=== PATIENT | female | born 1980 | race Caucasian/White ===

== ENCOUNTER 2017-07-27 14:32 | Emergency (ER) | payer MEDICAID, SELFPAY ==
[2017-07-27 14:33] VITALS: BP 119/80; PULSE 97; RESP 14; TEMP 36.5; O2SAT 99; BMI 39.9
--- NOTE | 2017-07-27 14:57 | ED.VISSUMM ---
- ER Visit Summary Date of Service: 07/27/17 Chief Complaint: Migraine History of Present Illness: The patient is a 36 F who presents with a four-day history of migraine headache. She states it is mostly the back of her head and on the right side. She is a history of migraines and this is consistent with her prior pattern. Patient states she has had nausea and dry heaves. She initially had double vision in her right eye which she has had with her prior migraines as well. Patient states normally Midrin and Fioricet will help her headaches but they are not alleviating the pain this round. She is currently on Augmentin for a sinus infection. She has had no fevers. Past history is significant for occipital neuralgia in addition to migraines, diabetes, hypertension, high cholesterol, and reflux disease. Physical Examination: Vital signs are unremarkable. Patient sitting well at room. She is in no acute distress. Head and neck examination is grossly unremarkable. Heart is regular rate and rhythm. On lung sounds are clear. Abdomen soft nontender. Neuro exam reveals no focal deficits. Test Results: [] Emergency Department Course and Treatment: Patient has previously done well with Toradol, Benadryl, and Phenergan. She is given this combination again today. On repeat evaluation she is resting comfortably. She does report significant improvement in her headache. She will be discharged home with family. Treatment Plan: [] Disposition: Discharge Impression: Migraine, improved This note was generated with [employer] dictation software. It may contain incorrect words, spelling, and punctuation that were not noted in review of the chart prior to signing ED Disposition - Plan for ED Patient: Chief Complaint: Headache Referrals: Shirlene George MD [Primary Care Provider] -
[2017-07-27] MEDS: 0.9% Normal Saline 1,000 ML 999 ML IV (15:03)
[2017-07-27] MEDS: DiphenhydrAMINE 50 MG/ML Syringe 25 MG IV (15:04)
[2017-07-27] MEDS: proMETHazine 25 MG/ML Syringe 12.5 MG IV (15:06)
[2017-07-27] MEDS: Ketorolac 30 MG/ML Syringe IV (15:08)
--- NOTE | 2017-07-27 16:29 | ED.DEP ---
ED Disposition - Plan for ED Patient: Disposition: Home or Assisted Living Chief Complaint: Headache Instructions: ED Headache Migraine Referrals: Shirlene George MD [Primary Care Provider] - 3-5 Days if not improving
[2017-07-27 16:47] VITALS: BP 112/71; PULSE 86; RESP 16; O2SAT 99
== END 2017-07-27 16:51 | disposition home or self-care (01) ==
PROVIDERS: Emergency Provider Emergency Medicine; Family Provider Internal Medicine; PCP Internal Medicine
DX: G43.909 Migraine, unspecified, not intractable, without status migrainosus (principal); E11.9 Type 2 diabetes mellitus without complications; I10 Essential (primary) hypertension; E78.00 Pure hypercholesterolemia, unspecified; K21.9 Gastro-esophageal reflux disease without esophagitis; M54.81 Occipital neuralgia; Z79.84 Long term (current) use of oral hypoglycemic drugs; Z79.899 Other long term (current) drug therapy; Z87.891 Personal history of nicotine dependence
CPT/HCPCS: 96361; 96374; 96375; 99284; J7030; A4216

== ENCOUNTER → 2017-10-08 16:43 | Outpatient (CLI) | payer MEDICAID, SELFPAY | PROVIDERS: Visit Provider Otolaryngology Otolaryngology/Facial Plastic Surgery | DX: J32.9 Chronic sinusitis, unspecified (principal) | CPT/HCPCS: 87070; 87077; 87205 ==

== ENCOUNTER 2017-11-03 19:34 | Emergency (ER) | payer MEDICAID, SELFPAY ==
[2017-11-03 19:35] VITALS: BP 148/90; PULSE 90; RESP 15; TEMP 36.9; O2SAT 94; BMI 39.2
--- NOTE | 2017-11-03 21:38 | ED.RN ---
6 IV ATTEMPTS, NO SUCCESS. DR. PENN INFORMED OF SAME.
[2017-11-03] MEDS: Ondansetron ODT 4 MG Tablet PO (21:45)
[2017-11-03] MEDS: Ketorolac 60 MG/2 ML Vial IM (21:46)
--- NOTE | 2017-11-03 21:52 | ED.RN ---
DR. PENN AWARE NO IV ESTABLISHED.
[2017-11-03 22:01] LABS: Anion Gap 9 (5-15); BUN 12 mg/dL (7-18); BUN/Creat Ratio 16.2 RATIO (10-20); Calcium,Total 9.1 mg/dL (8.5-10.1); Chloride 106 mmol/L (98-107); Creatinine, Serum 0.74 mg/dL (0.55-1.02); EST Glomerular Filtration Rate 95 mL/min (>60); Est Glom Filt Rate - Afr Amer 115 mL/min (>60); Estimated Creatinine Clearance 110.89 ml/min; Glucose 133 mg/dL (74-106); Potassium 4.1 mmol/L (3.5-5.1); Sodium Level 140 mmol/L (136-145)
[2017-11-03 22:06] VITALS: BP 121/77; PULSE 64; RESP 16; O2SAT 96
--- NOTE | 2017-11-03 23:03 | ED.VISSUMM ---
- ER Visit Summary Date of Service: 11/03/17 Chief Complaint: Jaw pain History of Present Illness: The patient is a 37 F who presents with jaw pain. The patient recently had an EGD 2 days ago. Since the day the procedure she has had pain at her right jaw. This is worse when she opens her mouth or presses on it. She states the pain makes her nauseated. She reports chills but no fevers. She was seen in urgent care and told to take Tylenol for pain and it was attributed to the positioning and her mouth being open with the procedure itself. Physical Examination: Afebrile vitals are stable Moist mucous membranes Patient has tenderness at the angle of the right mandible I do not appreciate any mass or soft tissue swelling she does not have trismus her speech is normal she has no dental tenderness no fluctuance no drainage no erythema Heart regular rate and rhythm Lungs are clear Abdomen soft Alert Test Results: BMP normal. CT of the neck shows borderline cervical lymph node but no other acute process. Emergency Department Course and Treatment: Initially a CT of the soft tissue of the neck with IV contrast was ordered. I obtain CT imaging to rule out any complication of the EGD such as perforation. There was significant difficulty with IV access. A BMP has been ordered only to evaluate renal function prior to IV contrast. With an IV start we were able to obtain blood but we are not able to obtain an IV. I do not feel IV contrast was critical for evaluation so CT without contrast was ordered which is unremarkable and showed findings as above. Patient is resting comfortably on reevaluation. She had been treated with oral Zofran and intramuscular Toradol. Patient was advised to follow-up as outpatient. She understands to return for new or worsening symptoms and was discharged home. Treatment Plan: [] Disposition: Discharge Impression: Right jaw pain This note was generated with [employer] dictation software. It may contain incorrect words, spelling, and punctuation that were not noted in review of the chart prior to signing ED Disposition - Plan for ED Patient: Chief Complaint: Other, Pain/Inj Referrals: Shirlene George MD [Primary Care Provider] -
--- NOTE | 2017-11-03 23:08 | ED.DEP ---
ED Disposition - Plan for ED Patient: Chief Complaint: Other, Pain/Inj Referrals: Shirlene George MD [Primary Care Provider] - Additional Instructions: You were seen due to right jaw pain. This was likely related to your recent endoscopy procedure. We do not see any evidence of mass or infection or other complications of the procedure such as perforation. Use Tylenol or anti-inflammatory such as ibuprofen or Aleve for pain. Follow-up with your physicians. Return for new or worsening symptoms.
[2017-11-03 23:12] VITALS: BP 135/85; PULSE 87; RESP 18; O2SAT 96
== END 2017-11-03 23:13 | disposition home or self-care (01) ==
PROVIDERS: Emergency Provider Emergency Medicine; Family Provider Internal Medicine; PCP Internal Medicine
DX: R68.84 Jaw pain (principal); I10 Essential (primary) hypertension; E78.00 Pure hypercholesterolemia, unspecified; E11.9 Type 2 diabetes mellitus without complications; K21.9 Gastro-esophageal reflux disease without esophagitis; Z79.84 Long term (current) use of oral hypoglycemic drugs; Z79.899 Other long term (current) drug therapy
CPT/HCPCS: 70490; 80048; 96372; 99283; A4216

== ENCOUNTER → 2017-11-27 14:05 | Outpatient (CLI) | payer MEDICAID, SELFPAY ==
--- NOTE | 2017-11-27 14:07 | BI_ITS ---
MAMMOGRAPHY - BILATERAL DIAGNOSTIC REASON FOR EXAM: Female, 37 years old. Right breast lump. PERTINENT HISTORY: Non-contributory. TECHNIQUE: Digital bilateral breast santa (3D mammographic acquisition) in the CC and MLO projections. 2-D mediolateral oblique (MLO) and craniocaudad (CC) views of both breasts were obtained. CAD: Full Field Digital Mammography with Computer Added Detection was performed. COMPARISON: None. Baseline examination. FINDINGS: Breast Composition: There are scattered areas of fibroglandular density. There are no dominant masses or suspicious calcifications. No other significant abnormalities are identified. BI/DIAG MAMM W/CAD, BILAT IMPRESSION: Negative diagnostic mammogram. With the patient's history of a palpable right breast lump, correlation with ultrasound is recommended. ASSESSMENT CATEGORY: BIRADS Category 0: Incomplete. Need additional imaging evaluation. A letter regarding these results will be sent to the patient by the facility within 30 days. Approximately 10% of breast cancers are not detected by mammography. A normal mammogram should not delay biopsy of a clinically suspicious abnormality. Electronically Signed: Jared Salazar MD at 15:44 EDT Tel [phone], Service support ,
--- NOTE | 2017-11-27 14:49 | US_ITS ---
STUDY: ULTRASOUND BREAST - RIGHT REASON FOR EXAM: Female, 37 years old. Palpable lump in the right breast. TECHNIQUE: Axial and longitudinal images of the RIGHT breast were performed with a high resolution ultrasound transducer. COMPARISON: Comparison is made with prior mammogram done earlier in the day. FINDINGS: RIGHT Breast: The area of concern was examined by ultrasound. No solid or cystic mass lesion is seen. US/Breast Limited Unilateral IMPRESSION: Unremarkable sonographic examination. Routine annual mammographic follow-up is recommended. ASSESSMENT CATEGORY: BIRADS Category 1: Negative. A letter regarding these results will be sent to the patient by the facility within 30 days. Electronically Signed: Jared Salazar MD at 15:45 EDT Tel [phone], Service support ,
== END ==
PROVIDERS: Family Provider Internal Medicine; PCP Internal Medicine; Visit Provider Obstetrics & Gynecology
DX: N63.10 Unspecified lump in the right breast, unspecified quadrant (principal)
CPT/HCPCS: 76642; 77062; 77066; G0279

== ENCOUNTER → 2017-12-21 15:25 | Outpatient (CLI) | payer MEDICAID, SELFPAY | PROVIDERS: Family Provider Internal Medicine; PCP Internal Medicine; Referring Provider Otolaryngology Otolaryngology/Facial Plastic Surgery; Visit Provider Otolaryngology Otolaryngology/Facial Plastic Surgery | DX: J32.9 Chronic sinusitis, unspecified (principal) | CPT/HCPCS: 87070; 87205 ==

== ENCOUNTER → 2018-01-02 06:51 | Outpatient (CLI) | payer MEDICAID, SELFPAY ==
--- NOTE | 2018-01-02 06:55 | CT_ITS ---
STUDY: CT MAXILLOFACIAL SINUSES REASON FOR EXAM: Female, 37 years old. Sinusitis RADIATION DOSAGE (If Supplied By Facility): CTDIvol = ( 29.38 ) mGy, DLP = ( 415.23 ) mGycm TECHNIQUE: The patient was scanned in a multi detector CT scanner. High resolution axial imaging was performed without the administration of intravenous contrast material. Sagittal and coronal images were reconstructed. Individualized dose optimization techniques were used for this CT. COMPARISON: 12/20/2015 FINDINGS: FRONTAL SINUSES: Normal aeration, without mucosal inflammatory disease. ETHMOIDAL SINUSES: Normal aeration, without mucosal inflammatory disease. MAXILLARY SINUSES: Normal aeration, without mucosal inflammatory disease. SPHENOIDAL SINUSES: Normal aeration, without mucosal inflammatory disease. There is patency of the bilateral maxillary infundibuli with normal uncinate processes, ethmoid bullae, and hiatus semilunaris. Normal bilateral middle turbinates. Normal bilateral inferior turbinates. There is a hole in the nasal septum. There is patency of the bilateral nasal airways. The visualized osseous structures are normal. The visualized bilateral orbital contents are normal. CT/Sinus/Facial Bone IMPRESSION: Perforated nasal septum. This is unchanged from the prior study. There is NO acute sinusitis. The ostiomeatal units are patent. Electronically Signed: Thang Falk MD at 7:32 EST , Service support ,
== END ==
PROVIDERS: Family Provider Internal Medicine; PCP Internal Medicine; Referring Provider Otolaryngology Otolaryngology/Facial Plastic Surgery; Visit Provider Otolaryngology Otolaryngology/Facial Plastic Surgery
DX: J32.8 Other chronic sinusitis (principal); J34.89 Other specified disorders of nose and nasal sinuses
CPT/HCPCS: 70486

== ENCOUNTER → 2018-03-20 13:32 | Outpatient (CLI) | payer MEDICAID, SELFPAY ==
--- NOTE | 2018-03-20 13:40 | RAD_ITS ---
HISTORY: CERVICALGIA COMPARISON: None FINDINGS: XR Spine Cervical 8 views with lateral flexion-extension views In the neutral projection, straightening of the upper cervical spine with mild reversal of the normal cervical lordosis at the C3-4 level. With flexion and extension, adequate cervical spine mobility without findings of abnormal motion or spondylolisthesis. Cervical disc space heights appear preserved. Posterior elements appear intact. Neural foramina appear patent. The C1-C2 relationship appears normal. RAD/Cerv Spine Obl/Flex/Ext Comp IMPRESSION: 1. Loss of the normal cervical lordosis and this improves with extension. 2. No abnormal motion or spondylolisthesis. No acute disease. 3. Consider physical therapy referral. at [id number] Reported and signed by: Lauri Reyes MD Electronically Signed: Lauri Reyes, at 6:06 EST Tel , Service support ,
--- OUTSIDE RECORDS SUMMARY | 2018-05-22 12:37 | XMS RPT_ITS | Summary of Care ---
:1980 Author Organization [facility] Address [address] [place] [address] Phone Care Team Providers Name Role Phone Shirlene George MD Primary Care Provider Reason for Visit Reason Comments Pre-op Exam 03/06/17 Encounter Details Date Type Department Care Team Description 02/27/2018 Pre-Operative Nurse Tommy Juarez, Pre-op exam (Primary Dx); Assessment Admission Diabetes mellitus without complication; [facility] Essential hypertension; [place] [address] Asthma in adult, severe persistent, uncomplicated; [id number] MEGHAN on CPAP; [phone] POTS (postural orthostatic tachycardia syndrome); (Fax) Morbid obesity with BMI of 40.0-44.9, adult; ALANIZ (nonalcoholic steatohepatitis); Mixed hyperlipidemia; PCOS (polycystic ovarian syndrome); Hypothyroidism, unspecified type Allergies Active Allergy Reactions Severity Noted Date Comments *Adhesive Tape Rash, Blisters Low 04/18/2011 Other reaction(s): Other: See Comments Pulling of skin Albuterol Tachycardia Apple Itching Low 04/07/2016 Aspirin Nausea and Vomiting, Medium 10/21/2012 Baby aspirin is OK Dyspepsia Atorvastatin Hives, Rash Medium 04/07/2016 Ciprofloxacin Anaphylaxis High 04/18/2011 Other reaction(s): Other: See Comments Mother highly allergic to medication Codeine And Related Mood Fluctuation Low 11/02/2011 Other reaction(s): Unknown Mood changes/depression worsen/if taking must be monitored closley Corticosteroids High 04/07/2016 Hyperglycemia Duloxetine High 04/07/2016 Capillary issue, caused her hands and feet to be severely cold Hydrocodone-Acetaminophe Rash Low n Ibuprofen Dyspepsia Low 10/21/2012 Morphine Rash Low 10/31/2017 Nickel Hives, Rash Medium 04/07/2016 Nifedipine Nausea Only, Medium 04/07/2016 Palpitations Peanut Oil Low Really doesn't have a reaction only tested high for it on an allergy test Sulfa Antibiotics Hives, Rash, Medium 04/18/2011 Other reaction(s): Headache, Dyspepsia Unknown headaches Sumatriptan Itching, Nausea and Medium 04/07/2016 Vomiting, Dyspepsia Tomato Dyspepsia Low Topiramate Dyspepsia Medium 11/28/2013 sleepiness Tramadol Nausea and Vomiting, High 04/07/2016 Dyspepsia Triamcinolone High Severe brusing Venlafaxine Rash High 04/07/2016 Caused hands to be severely cold Wheat Bran Rash Low 01/26/2017 as of this encounter Medications Prescription Sig. Disp. Refills Start Date End Date Status Dulaglutide 1.5 Inject 1.5 mL 12/08/2016 Active MG/0.5ML Solution under the skin Pen-injector injection once a week. enalapril 5 MG Tab Take 5 mg by 09/12/2016 Active tablet mouth daily. TAKES AT NIGHT fluvoxamine 25 MG Tab Take 25 mg by 12/01/2016 Active mouth every evening at 6 PM. gliMEPIride 4 MG Tab TAKE 1 TABLET BY 12/20/2016 Active tablet MOUTH TWICE DAILY. levalbuterol 0.63 0.63 mg daily. 08/15/2016 Active MG/3ML Nebu Soln inhalation solution levalbuterol 0.63 1 vial. Active MG/3ML Nebu Soln inhalation solution LORazepam 1 MG Tab Take 1 mg by 08/15/2016 Active tablet mouth as needed. olopatadine 0.1 % 1 drop. 08/15/2016 Active Solution ophthalmic solution pantoprazole 40 MG Tab Take 40 mg by 12/01/[address] tablet mouth daily. budesonide-formoterol Inhale 2 puffs. Active (SYMBICORT) 160-4.5 mcg/puff Aerosol inhaler rosuvastatin (CRESTOR) Take 1 tablet by 30 tablet 11 03/19/2017 Active 5 MG Tab per tablet mouth daily. Continuous Blood Gluc 1 kit by Other 04/02/2017 Active [employer] (FREESTYLE route. AJAY READER) Device Continuous Blood Gluc 1 kit by Other 04/02/2017 Active Sensor (FREESTYLE route. AJAY SENSOR SYSTEM) Misc lidocaine 5 % Patch Place 1 patch on Active patch skin every 24 hours. Max of 12 hours of application then remove Isometheptene-Dichlora Take by mouth as Active l-APAP (MIDRIN PO) needed. tvsrpdsubw-QDPC-oxdude Take 1 capsule by Active ne (FIORICET) mouth as needed. 50-300-40 MG Cap Cholecalciferol Take 1 capsule by 4 capsule 0 11/16/2017 Active (VITAMIN D3) 68898 mouth every 7 units CapIndications: days. Take Vitamin D deficiency weekly for 4 weeks(1 Month) fexofenadine 180 MG take 1 tablet by Active Tab tablet ORAL route every evening as needed NOW TAKING PRN Insulin Degludec Inject 12 Units Active (TRESIBA FLEXTOUCH) under the skin at 100 UNIT/ML Solution bedtime. TAKES Pen-injector injection 12 TO 13 DAILY IN EVENING levonorgestrel-ethinyl ethinyl estradiol 04/07/2016 Active estradiol 0.1-20 / MG-MCG Tab tablet levonorgestrelLEV ONORGESTREL-ETHIN YL ESTRAD 0.1-20 MG-MCG TABS LEVONORGESTREL-ET HINYL ESTRAD [id number] Damien Hedrick [id number] er Infectious Disease (83615) metformin-XR 500 MG Take 500 mg by Active Tab SR 24 HR mouth daily. Take 2 tabs by mouth twice daily montelukast 10 MG Tab Take 10 mg by Active tablet mouth daily. triamcinolone 2 sprays by Nasal Active (NASACORT ALLERGY route daily. 24HR) 55 MCG/ACT Aerosol ursodiol 250 MG Tab Take 1 tablet by 180 tablet 1 02/12/2018 Active tablet mouth 2 times daily. oxyCODONE 5 MG/5ML Take 5 mL by 120 mL 0 02/12/2018 Active Solution oral mouth every 4 solutionIndications: hours as needed S/P laparoscopic for Moderate Pain sleeve gastrectomy or Severe Pain for up to 7 days. acetaminophen 160 Take 20 mL by 500 mL 1 02/12/2018 Active MG/5ML Suspension mouth every 6 hours as needed for Pain. ondansetron 4 MG Tab Take 1 tablet by 15 tablet 1 02/12/2018 Active Dispersible tablet mouth every 6 hours as needed. Mometasone Inhale 1 puff Active Furo-Formoterol Fum daily. (DULERA) 100-5 MCG/ACT Aerosol as of this encounter Active Problems Problem Noted Date Morbid obesity 02/12/2018 Overview: Added automatically from request for surgery [id number] Diabetes 02/12/2018 Overview: Added automatically from request for surgery [id number] Asthma 02/12/2018 Overview: Added automatically from request for surgery [id number] Osteoarthritis 02/12/2018 Overview: Added automatically from request for surgery [id number] Pre-operative cardiovascular examination 11/09/2017 Syncope 11/09/2017 Hyponatremia 04/04/2017 LFT elevation 04/04/2017 ALANIZ (nonalcoholic steatohepatitis) 04/04/2017 Primary osteoarthritis of both hips 04/04/2017 Multinodular goiter (nontoxic) 04/02/2017 Obesity 04/02/2017 POTS (postural orthostatic tachycardia syndrome) 03/19/2017 Palpitations 03/19/2017 Hypoglycemia unawareness associated with type 2 diabetes mellitus 02/02/2017 Hypothyroid 02/02/2017 Overview: Overview: Pt states she transiently took levothyroxine in the past -- 25 or 50 mcg but then was taken off due to low TSH. Recent TSH 2.40. Pt notes some tenderness over thyroid region at times. 03/04/14: TSH 2.34, free T4 1.2, TPO AB <1.0. 09/18/14: I performed thyroid ultrasound today due to concern for chronic thyroid tenderness: the gland is not enlarged. It is homogeneous except for a few tiny scattered 2-3 mm hypoechoic nodules in th e left lobe. No abnormal lymph nodes seen. Showed pt and images in real time and reassured pt. No good reason for her tenderness. She does not need any routine follow-up ultrasounds (only if exam were to change). 03/13/15: TSH 1.71. Not requiring levothyroxine. Pt states she transiently took levothyroxine in the past -- 25 or 50 mcg but then was taken off due to low TSH. Recent TSH 2.40. Pt notes some tenderness over thyroid region at times. 03/04/14: TSH 2.34, free T4 1.2, TPO AB <1.0. 09/18/14: I performed thyroid ultrasound today due to concern for chronic thyroid tenderness: the gland is not enlarged. It is homogeneous except for a few tiny scattered 2-3 mm hypoechoic nodules in th e left lobe. No abnormal lymph nodes seen. Showed pt and images in real time and reassured pt. No good reason for her tenderness. She does not need any routine follow-up ultrasounds (only if exam were to change). 03/13/15: TSH 1.71. Not requiring levothyroxine. 05/25/15: TSH 2.00. 08/12/15: TSH 1.97, free T4 1.4. Type 2 diabetes mellitus with hyperglycemia 02/02/2017 Overview: Overview: Past evaluation has included hemoglobin A1c (09/25/13: 10.1%, 12/03/13: 8.2%, 03/04/14: 8.4%, 06/10/14: 7.2%, 08/21/14: 6.6%, 03/13/15: 6.8% thyroid function testing (09/25/13: 2.40, 03/04/14: TSH 2.34, free T4 1.2, 09/10/14: free T4 1.30, Total T3 120, 03/13/15: TSH 1.71. renal function testing (09/25/13: Cr. 0.51, 06/09/14: Cr. 0.60, 03/13/15: Cr. 0.61. urine for microalbumin (03/04/14: 485 (0-30), 03/13/15: 51 (0-30). fasting lipid profile (03/04/14: Cholesterol 205, Triglycerides 186, HDL 44, LDL 124, 06/09/14: Cholesterol 223, Triglycerides 179, HDL 52, LDL 135. Liver Evaluation (09/25/13: liver function normal, 06/09/14: liver normal. Note for Evaluation of type 2 diabetes: 12/03/13 visit:Patient is here for further evaluation of uncontrolled type 2 diabetes. She used to see [facility] manuel Wright, but the drive was too far. She is here with her fiance today. Approximate date of diagnosis: 18 years old around the time found to have PCOS. HbA1c usually high above 10% in the past. Pt also has hx of hyperlipidemia, morbid obesity, neuropathy in legs, taking Enalapril 5 mg for kidney protection only, obstructive sleep apnea, PCOS with IUD. Hopes to get in the future and understands must get HbA1c to around 6% first. Has been eating a lot of vegetables and fruits. Limits proteins and 3-4 servings of carbs per meal- Diet was set up by a data management specialist. Has been able to lose over 10 lbs so far. Goes to [facility] to see a data management specialist- was referred was Dr. Hugo Mariee. Just started going to the gym. Pt states last eye exam was in Mar 2013-per pt no diabetic retinopathy. Pt is currently taking metformin 1,000 mg BID, glimepiride 4 mg in AM, and Victoza 1.8 mg daily. Has been on this current regimen for 2 years. In the past took Januvia but it didn't help with her sugars. She changed her diet a few months ago and HbA1c has gone from 10.1% to 8.2% Tries to check her blood sugars twice daily but usually only does this a few times per week. Did not bring log. Morning blood sugars are 120's-150's. Usually will take 2-3 hours after dinner 170's-20 0's. Pt has investigated bariatric surgery with her insurance about a year ago and was told will only pay for Dipti-en-Y gastric bypass and not sleeve or banding. Pt's mother had a bad experience with gastric bypass and pt not interested in that option. 03/10/14: HbA1c has increased to 8.4%. Pt is currently taking Glimepiride 4 mg BID, Victoza 1.8mg daily and Metformin 1,000 mg BID. Pt brought log with her to OV. Pt is testing 2-3 times per day. Sugars are variable, most recently in the mid 100's. Pt states having a few bs in the 300's but was due to what she ate. Pt states that when she first wakes up occasionally her bs is around 80. Pt states that is low for her. Pt has gained 16 lbs. since last ov. She is not quite sure why this much. She did eat extra over the holidays. States she has been tested a few times for Ed's in the past by previous endocrinologists and workup was unremarkable. Pt states trying to eat better. Tries to exercise a couple times per week. Las t eye exam was in 2013, Dr. Díaz. Per pt no signs of diabetic retinopathy. Pt states having a double ear infection and being on ATB. Pt is currently trying to find JMT specialist. Pt states this might be the cause of all her ear infections. Reviewed recent lab results with pt. Lipids elevated. Notes a lot of fatigue. Has sleep apnea and wears Bipap - titration has been done. Added Invokana. Was on the verge of needing insulin. 06/10/14: Pt is currently taking Invokana 100 mg daily, Victoza 1.8 mg daily, glimepiride 4 mg BID, and metformin 1,000 mg BID. pt forgot to bring log and meter with her to ov. states she is checking 2-3 times d aily. She would like extra test strips sent over so she can check more if possible. highest bs was 240 which was caused by cortisone injection in L knee. pt states having a few lows in the 60's, states its usually in the morning. Pt was feeling sticky and sweaty so took finger stick and bs was 103. Ate a granola bar. Pt has lost 15 lbs since last ov due to modifying diet. pt is doing PT for knee. L ast eye exam was 2013, pt goes yearly. Recent labs reviewed with pt. 09/18/14: Pt is currently taking Metformin 1,000 mg BID, Victoza 1.8 mg daily injection, Invokana 300 mg daily, and glimepiride 2 mg BID. downloaded meter, pt is only testing 1- 2 times per week. Pt having occasio nal 200's due to poor diet decisions. Pt states having a few lows, pt states last one was 40's did not feel. Pt has gained 4 lbs since last OV. Diet has remained the same. Last eye exam was 2013, p er pt no diabetic retinopathy. Pt in process of moving and last month has been super busy and stressful. She is moving further away but still desires to come her for appts. Pt checked her own glucose in office: it was 86. Now seeing a supervisor incising for lightheadedness. States she stopped atorvastatin due to allergic reaction since it contains sulfa. States supervisor incising is going to try her on a different statin. 03/24/15: Pt is here today with her good friend who prepares a lot of food for her. Her fiance is in the waiting room. Pt is currently taking Victoza 1.8 mg daily, Invokana 300 mg daily and glimepiride 2 mg bid. Downloaded meter. Pt is not checking on daily basis. 4 checks were on download. Pt states she tries to get 1 stick per day and does not correlate to her HbA1c of 6.8%. She did fingerstick in office and it was 68. Pt states not having frequent elevated bs. Pt states one of the highest has been 135. Pt having frequent lows in the 50-70 range. Pt has lost 16 lbs since last OV with dietary mod ification Pt states having to eliminate peanuts, apples, tomatoes, and wheat due to allergies. Pt will stop for 6 months and then retest. Last eye exam was a couple years ago. Pt states having difficult y getting finger stick in the winter due to Raynauds in hands and feet. Recent labs reviewed with pt. seeing supervisor incising Dr. Garcia at [facility] for POTS. She was restarted on Crestor. Sometimes notes that her BP is on the low side. Taking enalapril 5 mg daily - has microalbuminuria. Type 2 diabetes mellitus with neurological manifestation 02/02/2017 Overview: Overview: associated with diabetes Type 2 diabetes mellitus with polyneuropathy 02/02/2017 Disorder of bone and cartilage 02/02/2017 IgG deficiency 02/02/2017 Compression fx, lumbar spine 02/02/2017 Cervicalgia 02/02/2017 Osteoarthritis cervical spine 02/02/2017 DDD (degenerative disc disease), cervical 02/02/2017 Dorsalgia 02/02/2017 Lumbar degenerative disc disease 02/02/2017 Osteoarthritis of lumbar spine 02/02/2017 Bilateral shoulder pain 02/02/2017 Bilateral biceps tendonitis 02/02/2017 Subacromial bursitis 02/02/2017 Osteoarthritis of both hands 02/02/2017 Bilateral hip pain 02/02/2017 Greater trochanteric bursitis of both hips 02/02/2017 Osteoarthritis of both knees 02/02/2017 Osteoarthritis of both feet 02/02/2017 TMJ arthralgia 02/02/2017 Allergic rhinitis 01/24/2017 Asthma in adult, severe persistent, uncomplicated 01/24/2017 Hypogammaglobulinemia 01/24/2017 MEGHAN on CPAP 01/24/2017 Recurrent infections 01/24/2017 Diabetes mellitus without complication 12/22/2016 Essential hypertension 12/22/2016 Fatigue 12/22/2016 Hair loss 12/22/2016 Hyperlipidemia 12/22/2016 Type 2 diabetes mellitus with diabetic neuropathy, without long-term 12/22/2016 current use of insulin Statin intolerance 12/09/2016 Overview: Overview: hives to Lipitor PVC's (premature ventricular contractions) 09/05/2016 Morbid obesity with BMI of 40.0-44.9, adult 09/05/2016 Bilateral low back pain with sciatica 05/22/2016 Multiple thyroid nodules 02/04/2016 Ovarian cyst, left 01/14/2016 PCOS (polycystic ovarian syndrome) 02/11/2015 Overview: Overview: MIRENA IUD in place 11/2014 Vitamin D deficiency 10/22/2012 Social History Tobacco Use Types Packs/Day Years Used Date Never Smoker Smokeless Tobacco: Never Used Alcohol Use Drinks/Week oz/Week Comments Yes social Sex Assigned at Date Recorded Not on file as of this encounter Last Filed Vital Signs Vital Sign Reading Time Taken Blood Pressure 137/64 02/27/2018 3:03 PM EST Pulse 90 02/27/2018 3:03 PM EST Temperature 36.6 ??C (97.8 ??F) 02/27/2018 3:03 PM EST Respiratory Rate 16 02/27/2018 3:03 PM EST Oxygen Saturation 99% 02/27/2018 3:03 PM EST Inhaled Oxygen Concentration - - Weight 122.5 kg (270 lb) 02/27/2018 3:03 PM EST Height 175.3 cm (5' 9) 02/27/2018 3:03 PM EST Body Mass Index 39.87 02/27/2018 3:03 PM EST in this encounter Functional Status Functional Status Response Date of Assessment Are you deaf or do you have serious difficulty hearing? No 04/04/2017 Are you blind or do you have serious difficulty seeing, No 04/04/2017 even when wearing glasses? Do you have serious difficulty walking or climbing stairs No 04/04/2017 (5 years or older)? Do you have difficulty dressing or bathing (5 yrs or No 04/04/2017 older)? Because of a physical, mental, or emotional condition, do No 02/02/2017 you have difficulty doing errands alone such as visiting a doctor's office or shopping (5 yrs or older)? Cognitive Status Response Date of Assessment Because of a physical, mental, or emotional condition, do No 04/04/2017 you have serious difficulty concentrating, remembering, or making decisions (5 yrs or older)? as of this encounter Instructions Patient Instructions - Maribel Paul RN - 02/27/2018 3:30 PM ESTFormatting of this note may be different from the original. YOUR SURGERY IS SCHEDULED FOR Sunday03/06/2018 PATIENT SURGERY INFORMATION Please call the oral surgery technician at [phone] between 9am - 2pm, the day before your surgery, or Sunday if your surgery is scheduled for Sunday, for your time of arrival. If the spares scheduler has not heard from you she will call you after 2pm. If you have any questions concerning your surgery/procedure, please call the the office at [phone]. PRESCRIPTION MEDICATIONS TO STOP BEFORE THE SURGERY: ?? Phentermine (7 days before) ?? Full dose Aspirin 325 mg (7 days before). Baby Aspirin 81 mg is ok to take ?? Plavix or Plectal and other blood thinners (7 days before) ?? Coumadin (4 days before) ?? Diabetic medications are NOT taken the morning of surgery ?? Iron Supplements (1 week before) ?? Stop all NSAIDS 1 week before surgery Tylenol or acetaminophen is ok to take within this time frame. Please take all other daily medications with a sip of water the morning of surgery unless otherwise instructed by your physician or surgeon. Check your blood sugar the morning of surgery if taking diabetic medication and treat your blood sugar with insulin as usual. Do not take oral hypoglycemics (Metformin or Glypizide) or long-acting insulin injections (Levemir or Lantus) the morning of surgery. THINGS TO BRING WITH YOU THE MORNING OF SURGERY CPAP: please bring your machine, mask, and tubing. Rescue Inhaler Careful attention to the following instructions will help ensure your comfort and reduce the possibility of complications. * Instructions for the day of your surgery/procedure * 1. Clear liquids to drink only the day before surgery. 2. You should drink a clear liquid sports drink with sugars and electrolytes (like Gatorade/Poweradeor juice) the night before surgery and up to 2 hours before you report to the hospital on the day ofsurgery. Diabetics should drink a low calorie sport drink (like G2 or Powerade Zero) or watered-downjuice. Check your blood sugar in the morning as usual and treat with sliding scale insulin if that is your normal morning regimen. 3. Bathe or shower the evening before or the day of your surgery/procedure UNLESS otherwise instructed by your physician. Use a mild antibacterial soap. DO NOT shave the surgical area before surgery. This could increase the likelihood of developing an infection. 4. Avoid using make-up (cosmetics), aerosol sprays, perfumes, skin creams or lotions. Any make-up, false eyelashes,nail english and lipstick will need to be removed before surgery. Hospital staff needs to see your natural coloring to assess and monitor any changes. 5. Wear clothing that is comfortable and easy to put on after surgery. 6. Bring a responsible adult with you. YOU ARE NOT PERMITTED TO DRIVE HOME FOLLOWING YOUR SURGERY/PROCEDURE. 7. Leave all valuables and large amounts of money at home. Do not wear any jewelry including finger rings, navel rings, earrings, toe rings, tongue rings or any type of body piercing jewelry. For your safety, you must remove all jewelry items prior to your procedure. 8. Dentures, hearing aids, contact lenses and glasses cannot be worn during your procedure. If you use any of these items, please bring their cases with you for proper storage. [facility] will not be responsible for lost articles. 9. You will consult with anesthesia personnel the day of surgery. Anesthesia personnel will ask you important questions and explain the type of anesthesia you will be receiving, how it is administered,and the risks. You will have an opportunity to have all of your questions answered. 10. Two visitors may stay with you before and after surgery. For patient confidentiality and comfort, please limit your visitors to two (2) adults. We welcome and encourage parents of pediatric patients to remain here throughout the procedure. No small children will be permitted in the pre-operative or recovery area. 11. If you develop a cold, persistent cough, sore throat, fever or any other illness within two daysof surgery, please notify your physician or tell the nurse as soon as you arrive at the hospital. Ifyou experience any other health changes between your most recent visit to your surgeon and the day of the surgery, notify your physician. If you suspect you are , please notify your physician. Anesthesia and medications may be harmful to the developing fetus. 12. No alcohol or illicit drugs during the 24-hours prior to your procedure. 13. Do not smoke after midnight the night before your procedure. If you are a smoker, our Surgery Department requests you quit or cut down at least 24 to 48 hours prior to your surgery/procedure. You will not be permitted to smoke at the hospital. 14. Any legal documents should not be signed until 24 hours after sedation. 15. You will receive discharge instructions before leaving the hospital and copies of the information will be placed in a folder for you to take home. It is important for you, and anyone assisting with your care, to understand these instructions. 16. Please call your doctor with any questions or concerns. DIRECTIONS: Park in the front main [facility] [address] Enter through the front entrance and sign in at the Registration Desk at the [facility]. Thank you for allowing us the privilege to care for you! Preventing Surgical Site Infections One risk of having surgery is an infection at the surgical site. The surgical site is any cut the surgeon makes in the skin to do the operation. Surgical site infections can range from minor to severe or even fatal. This sheet tells you more about surgical site infections, what hospitals are doing to prevent them, and how they are treated if they do occur. It also tells you what you can do to preventthese infections. What causes surgical site infections? Germs are everywhere. They???re on your skin, in the air, and on things you touch. Many germs are good. Some are harmful. Surgical site infections occur when harmful germs enter your body through the incision in your skin. Some infections are caused by germs that are in the air or on objects. But mostare caused by germs found on and in your own body. Who is at risk for surgical site infections? Anyone can have a surgical site infection. Your risk is greater if you: ?? Are an older adult ?? Have a weak immune system or other health conditions or illnesses such as diabetes ?? Take certain medicines such as steroids ?? Are a smoker ?? Have certain types of operations, such as abdominal surgery ?? Have poor nutrition ?? Are very overweight ?? If the operation lasts longer than 2 hours What are the symptoms of a surgical site infection? ?? The infection usually starts with increased skin redness, pain, and swelling around the incision.Later you may notice a cloudy or greenish-yellow discharge from the incision and it may develop a foul odor. The incision may separate or open up. You are also likely to have a fever and may feel very ill. ?? Symptoms can appear any time from hours to weeks after surgery. Implants such as an artificial knee or hip can become infected at any time after the operation. How are surgical site infections treated? ?? Surgical site infections are treated with antibiotics. The type of medicine you get will depend on the germ thought to be causing the infection. Most serious wound infections need local wound care, and in some cases, further surgery. ?? An infected skin wound may be reopened and cleaned. Sometimes, deep wounds need to be packed withgauze that is changed often until the wound starts to heal from the inside out. Your healthcare provider will figure out the best care needed to treat your surgical site infection. ?? If an infection occurs where an implant is placed, the implant may be removed. ?? If you have an infection deeper in your body, you may need another operation to treat it. What hospitals do to prevent surgical site infections Many hospitals take these steps to help prevent surgical site infections: ?? Handwashing. Before the operation, your surgeon and all operating room staff scrub their hands and arms with an antiseptic soap. ?? Clean skin. The site where your incision is made is carefully cleaned with an antiseptic solution. ?? Sterile clothing and drapes. Members of your surgical team wear medical uniforms (scrub suits), long-sleeved surgical gowns, masks, caps, shoe covers, and sterile gloves. Your body is fully covered with a large sterile sheet (sterile drape) except for the spot where the incision is made. ?? Clean air. Operating rooms have special air filters and positive pressure airflow to prevent unfiltered air from entering the room. ?? Careful use of antibiotics. Antibiotics are given no more than 60 minutes before the incision is made and stopped within 24 hours after surgery. This helps kill germs but avoids problems that can occur when antibiotics are taken longer. ?? Controlled blood sugar levels. Your blood sugar level may rise because of the stress of the surgery. Your blood sugar level is watched closely to make sure it stays within a normal range. High bloodsugar delays wound healing and increases the chances for infection. ?? Controlled body temperature. A gunrk-kdri-vrifvk temperature during or after surgery prevents oxygen from reaching the wound and makes it harder for your body to fight infection. Hospitals may warm IV fluids, increase the temperature in the operating room, and provide warm-air blankets. ?? Proper hair removal. Any hair that must be removed is clipped right before the incision, not shaved with a razor. This prevents tiny nicks and cuts through which germs can enter. ?? Wound care. After surgery, a closed wound is covered with a sterile dressing for a day or two. Open wounds are packed with sterile gauze and covered with a sterile dressing. What you can do to prevent surgical site infections ?? Ask questions. Learn what your hospital is doing to prevent infection. ?? If your doctor tells you to, shower or bathe with plain soap the night before and the day of youroperation. Follow the instructions you are given. You may be asked to use a special cleanser that you don???t rinse off. ?? If you smoke, stop for the longest duration possible before and after the operation. Ask your doctor about ways to quit. ?? Take antibiotics only when your healthcare provider tells you to. Using antibiotics when they???re not needed can create germs that are harder to kill. Also, finish all your antibiotics, even if youfeel better. ?? Be sure healthcare workers clean their hands with plain soap and water or with an alcohol-based hand coke still cleaner before and after caring for you. Don???t be afraid to remind them. ?? After surgery, eat healthy foods. Care for your incision as directed by your doctor or nurse. When to seek medical care Call your healthcare provider if you have any of the following: ?? Increased soreness, pain, or tenderness at the surgical site ?? A red streak, increased redness, or puffiness near the incision ?? Yellowish, cloudy, or bad-smelling discharge from the incision ?? Stitches that dissolve before the wound heals ?? Fever of 100.4??F (38??C) or higher, or as directed by your healthcare provider ?? A tired feeling that doesn???t go away Current Outpatient Prescriptions Medication INSTRUCTIONS ??? edyelswswe-DMMX-xnktiaze (FIORICET) 50-300-40 MG Cap Take 1 capsule by mouth as needed. CONTINUE ??? Dulaglutide 1.5 MG/0.5ML Solution Pen-injector injection Inject 1.5 mL under the skin once a week. CONTINUE ??? enalapril 5 MG Tab tablet Take 5 mg by mouth daily. TAKES AT NIGHT CONTINUE ??? fexofenadine 180 MG Tab tablet take 1 tablet by ORAL route every evening as needed NOW TAKING PRN CONTINUE ??? fluvoxamine 25 MG Tab Take 25 mg by mouth every evening at 6 PM. CONTINUE ??? gliMEPIride 4 MG Tab tablet TAKE 1 TABLET BY MOUTH TWICE DAILY. CONTINUE BUT DO NOT TAKE THE MORNING OF SURGERY ??? Insulin Degludec (TRESIBA FLEXTOUCH) 100 UNIT/ML Solution Pen-injector injection Inject 12 Unitsunder the skin at bedtime. TAKES 12 TO 13 DAILY IN EVENING CONTINUE ??? Vevytnlqcqgoc-Snhaxpfti-AHCL (MIDRIN PO) Take by mouth as needed. CONTINUE ??? levalbuterol 0.63 MG/3ML Nebu Soln inhalation solution 0.63 mg daily. CONTINUE AND USE THE MORNING OF SURGERY ??? lidocaine 5 % Patch patch Place 1 patch on skin every 24 hours. Max of 12 hours of application then remove CONTINUE ??? LORazepam 1 MG Tab tablet Take 1 mg by mouth as needed. CONTINUE ??? metformin-XR 500 MG Tab SR 24 HR Take 500 mg by mouth daily. Take 2 tabs by mouth twice daily CONTINUE BUT DO NOT TAKE THE MORNING OF SURGERY ??? Mometasone Furo-Formoterol Fum (DULERA) 100-5 MCG/ACT Aerosol Inhale 1 puff daily. CONTINUE AND USE THE MORNING OF SURGERY ??? montelukast 10 MG Tab tablet Take 10 mg by mouth daily. CONTINUE AND TAKE THE MORNING OF SURGERY WITH SIP OF WATER ??? pantoprazole [address] tablet Take 40 mg by mouth daily. CONTINUE AND TAKE THE MORNING OF SURGERY WITH SIP OF WATER ??? rosuvastatin (CRESTOR) 5 MG Tab per tablet Take 1 tablet by mouth daily. CONTINUE AND TAKE THE MORNING OF SURGERY WITH SIP OF WATER ??? triamcinolone (NASACORT ALLERGY 24HR) 55 MCG/ACT Aerosol 2 sprays by Nasal route daily. CONTINUE AND USE THE MORNING OF SURGERY in this encounter Progress Notes Maribel Paul, RN - 02/27/2018 3:00 PM ESTConfirmed procedure and surgery date with patient. Discussed post op pain level with patient. Reviewed pre-op instructions and gave written instructions of the same. LABS obtained per pat orders from Dr Schaeffer this encounter Plan of Treatment Upcoming Encounters Date Type Specialty Care Team Description 03/06/2018 Surgery Tommy Acevedo MD LONGITUDINAL [address] [place] [address] (SLEEVE) LAP [address] [place] [address] asst needs [place], [place] MIDLINE<[place]> [id number] 03/06/2018 Procedure Pass 03/06/2018 Hospital Encounter Tommy Acevedo MD [address] [place] [id number] [phone] 03/15/2018 Office Visit General Surgery Tommy Acevedo MD [address] [place] [address] [phone] 04/10/2018 Appointment Nutrition and Tommy Acevedo MD [address] [place] [address] [phone] Dietetics Angie Barraza, RD [address] [place] [address] 04/12/2018 Office Visit General Surgery Tommy Acevedo MD [address] [place] [address] [phone] 11/08/2018 Office Visit Cardiovascular Woody Sparks DO [address] [place] [address] [phone] Health Maintenance Due Date Last Done Comments HIV SCREENING DISCUSSION 10/17/1995 TETANUS 2000 TDAP (ADULT) 2001 PAP SMEAR DISCUSSION 10/17/2003 INFLUENZA VACCINE Completed 01/16/2018, 01/08/2018, 12/22/2016, Additional history exists as of this encounter Visit Diagnoses Diagnosis Pre-op exam - Primary Preoperative examination, unspecified Diabetes mellitus without complication Type II or unspecified type diabetes mellitus without mention of complication, not stated as uncontrolled Essential hypertension Unspecified essential hypertension Asthma in adult, severe persistent, uncomplicated MEGHAN on CPAP Obstructive sleep apnea (adult) (pediatric) POTS (postural orthostatic tachycardia syndrome) Tachycardia, unspecified Morbid obesity with BMI of 40.0-44.9, adult ALANIZ (nonalcoholic steatohepatitis) Other chronic nonalcoholic liver disease Mixed hyperlipidemia PCOS (polycystic ovarian syndrome) Polycystic ovaries Hypothyroidism, unspecified type Bilateral low back pain with sciatica, sciatica laterality unspecified, unspecified chronicity Primary osteoarthritis of both hips Primary localized osteoarthrosis, pelvic region and thigh
--- OUTSIDE RECORDS SUMMARY | 2018-05-22 12:37 | XMS RPT_ITS | Summary of Care ---
:1980 Author Organization [facility] Address [address] [place] [address] Phone Care Team Providers Name Role Phone Shirlene George MD Primary Care Provider Reason for Visit Reason Comments Pre-op Exam Gastric Sleeve 03/06/18 Encounter Details Date Type Department Care Team Description 02/12/2018 Office Visit [facility] Tommy Acevedo MD Morbid obesity with BMI of 40.0-44.9, adult (Primary Dx); [facility] [address] [facility] Asthma in adult, severe persistent, uncomplicated; [address] [place] [address] MEGHAN on CPAP; [place], [place] [phone] Essential hypertension; [id number] POTS (postural orthostatic tachycardia syndrome); [phone] ALANIZ (nonalcoholic steatohepatitis); Diabetes mellitus without complication; Mixed hyperlipidemia; PCOS (polycystic ovarian syndrome); Hypothyroidism, [...] encounter Medications Prescription Sig. Disp. Refills Start End Date Status Date Dulaglutide 1.5 Inject 1.5 mL Active MG/0.5ML Solution under the skin. 7 Pen-injector injection enalapril 5 MG Tab Take 5 mg by Active tablet mouth daily. 7 fluvoxamine 25 MG Tab Take 25 mg by Active mouth. 7 gliMEPIride 4 MG Tab TAKE 1 TABLET Active tablet BY MOUTH TWICE 7 DAILY. levalbuterol 0.63 0.63 mg. Active MG/3ML Nebu Soln 7 inhalation solution levalbuterol 0.63 1 vial. Active MG/3ML Nebu Soln inhalation solution LORazepam 1 MG Tab Take 1 mg by Active tablet mouth. 7 olopatadine 0.1 % 1 drop. Active Solution ophthalmic 7 solution pantoprazole 40 MG Take 40 mg by Active Tab [address] tablet mouth. 7 budesonide-formoterol Inhale 2 puffs. Active (SYMBICORT) 160-4.5 mcg/puff Aerosol inhaler rosuvastatin Take 1 tablet 30 tablet 11 Active (CRESTOR) 5 MG Tab by mouth daily. 8 per tablet Continuous Blood Gluc 1 kit by Other Active [employer] (FREESTYLE route. 8 AJAY READER) Device Continuous Blood Gluc 1 kit by Other Active Sensor (FREESTYLE route. 8 AJAY SENSOR SYSTEM) Misc lidocaine 5 % Patch Place 1 patch Active patch on skin every 24 hours. Max of 12 hours of application then remove Isometheptene-Dichlor Take by mouth Active al-APAP (MIDRIN PO) as needed. lyacmayazn-TRVA-lxazt Take by mouth Active ine (FIORICET) as needed. 50-300-40 MG Cap Cholecalciferol Take 1 capsule 4 capsule 0 Active (VITAMIN D3) 65226 by mouth every 8 units CapIndications: 7 days. Take Vitamin D deficiency weekly for 4 weeks(1 Month) fexofenadine 180 MG take 1 tablet Active Tab tablet by ORAL route every evening as needed Insulin Degludec Inject 12 Units Active (TRESIBA FLEXTOUCH) under the skin 100 UNIT/ML Solution at bedtime. Pen-injector injection levonorgestrel-ethiny ethinyl Active l estradiol 0.1-20 estradiol / 7 MG-MCG Tab tablet levonorgestrelL EVONORGESTREL-E THINYL ESTRAD 0.1-20 MG-MCG TABS LEVONORGESTREL- ETHINYL ESTRAD [id number] Damien Hedrick [id number] ster Infectious Disease (71832) metformin-XR 500 MG Take 500 mg by Active Tab SR 24 HR mouth daily. Take 2 tabs by mouth twice daily montelukast 10 MG Tab Take 10 mg by Active tablet mouth daily. triamcinolone 2 sprays by Active (NASACORT ALLERGY Nasal route 24HR) 55 MCG/ACT daily. Aerosol ursodiol 250 MG Tab Take 1 tablet 180 tablet 1 Active tablet by mouth 2 8 times daily. oxyCODONE 5 MG/5ML Take 5 mL by 120 mL 0 02/20/20 Active Solution oral mouth every 4 8 18 solutionIndications: hours as needed S/P laparoscopic for Moderate sleeve gastrectomy Pain or Severe Pain for up to 7 days. acetaminophen 160 Take 20 mL by 500 mL 1 Active MG/5ML Suspension mouth every 6 8 hours as needed for Pain. ondansetron 4 MG Tab Take 1 tablet 15 tablet 1 Active Dispersible tablet by mouth every 8 6 hours as needed. ondansetron 4 MG Tab Take 4 mg by 02/13/20 Discontinued Dispersible tablet mouth. 6 18 Cholecalciferol 1 po one day a 5 capsule 11 02/13/20 Discontinued (MAXIMUM D3) 33418 week 7 18 units CapIndications: Vitamin D deficiency Diclofenac Sodium Apply bid PRN 1 Tube 11 02/13/20 Discontinued (VOLTAREN) 1 % Gel 8 18 gelIndications: Vitamin D deficiency, ALANIZ (nonalcoholic steatohepatitis), Hyponatremia, Osteoarthritis of cervical spine, unspecified spinal osteoarthritis complication status, DDD (degenerative disc disease), cervical, Lumbar degenerative disc disease, Osteoarthritis of lumbar spine, unspecified spinal osteoarthritis complication status, Osteoarthritis of both hands, unspecified osteoarthritis type, Osteoarthritis of both knees, unspecified osteoarthritis type, Osteoarthritis of both feet, unspecified osteoarthritis type, Bilateral temporomandibular joint pain, Primary osteoarthritis of both hips, Hypogammaglobulinemia , IgG deficiency, LFT elevation as of this encounter Active Problems Problem Noted Date Morbid obesity 02/12/2018 Overview: Added automatically from request for surgery [id number] Diabetes 02/12/2018 Overview: Added automatically from request for surgery [id number] Asthma 02/12/2018 Overview: Added automatically from request for surgery [id number] Osteoarthritis 02/12/2018 Overview: Added automatically from request for surgery [id number] Pre-operative cardiovascular examination 11/09/2017 Syncope 11/09/2017 Hyponatremia [...] type 2 diabetes. She used to see [facility] endo Dr. Wright, but the drive was too far. [...] meal- Diet was set up by a supply assistant. Has been able to lose over 10 lbs so far. Goes to [facility] to see a supply assistant- was referred was Dr. Hugo Mariee. Just [...] office: it was 86. Now seeing a slipman for lightheadedness. States she stopped atorvastatin due to allergic reaction since it contains sulfa. States slipman is going to try her on a [...] feet. Recent labs reviewed with pt. seeing slipman Dr. Garcia at [facility] for POTS. She was restarted on Crestor. [...] Vital Sign Reading Time Taken Blood Pressure 142/78 02/12/2018 2:58 PM EST Pulse 101 02/12/2018 2:58 PM EST Temperature 36.5 ??C (97.7 ??F) 02/12/2018 2:58 PM EST Respiratory Rate 16 02/12/2018 2:58 PM EST Oxygen Saturation 97% 02/12/2018 2:58 PM EST Inhaled Oxygen Concentration - - Weight 120.9 kg (266 lb 9.6 oz) 02/12/2018 2:58 PM EST Height 175.5 cm (5' 9.09) 02/12/2018 2:58 PM EST Body Mass Index 39.26 02/12/2018 2:58 PM EST in this encounter Functional Status [...] yrs or older)? as of this encounter Progress Notes Tawana Gilliland LPN - 02/12/2018 2:45 PM ESTFormatting of this note may be different from the original. Nurse Note: Review of Systems Constitutional: Negative for fatigue, fever and unexpected weight change. Eyes: Positive for visual disturbance. Respiratory: Positive for cough and shortness of breath. Negative for chest tightness. Cardiovascular: Negative for chest pain, palpitations and leg swelling. Gastrointestinal: Positive for diarrhea and nausea. Negative for abdominal pain, constipation and vomiting. Neurological: Positive for dizziness. Negative for headaches. Nursing Assessment: Physical Exam 5 Times Sit to Stand Test: Time to Completion (in seconds): 16 Modifications: Did not use arms of chair/assist level Incomplete test: Completed Timed Up and Go Test (TUG): Time to Completion (in seconds): 9 Modifications: No assistive device Incomplete test: Completed 2 Minute Walk Test: Distance (in meters): 165 Modifications: No assistive device Incomplete test: Completed in this encounter Plan of Treatment Upcoming Encounters Date Type Specialty Care Team Description 02/12/2018 Procedure Pass 03/06/2018 Hospital Encounter Tommy Acevedo Hyperlipidemia MD [address] [place] [address] [phone] 03/15/2018 Office Visit General Surgery Tommy Acevedo MD [address] [place] [address] [phone] 04/10/2018 Appointment Nutrition and Dietetics Tommy Acevedo MD [address] [place] [address] [phone] Angie Barraza, RD [address] [place] [address] 04/12/2018 Office Visit General Surgery Tommy Acevedo MD [address] [place] [address] [phone] 11/08/2018 Office Visit Cardiovascular Medicine Dane Sparks DO [address] [place] [address] [phone] Scheduled Tests Name Priority Associated Diagnoses Order Schedule BASIC METABOLIC PANEL Routine Asthma in adult, severe Expected: 02/12/2018, persistent, uncomplicated Expires: 02/12/2019 MEGHAN on CPAP Essential hypertension POTS (postural orthostatic tachycardia syndrome) Morbid obesity with BMI of 40.0-44.9, adult ALANIZ (nonalcoholic steatohepatitis) Diabetes mellitus without complication Mixed hyperlipidemia PCOS (polycystic ovarian syndrome) Hypothyroidism, unspecified type Bilateral low back pain with sciatica, sciatica laterality unspecified, unspecified chronicity Primary osteoarthritis of both hips CBC,PLATELETS Routine Asthma in adult, severe Expected: 02/12/2018, persistent, uncomplicated Expires: 02/12/2019 MEGHAN on CPAP Essential hypertension POTS (postural orthostatic tachycardia syndrome) Morbid obesity with BMI of 40.0-44.9, adult ALANIZ (nonalcoholic steatohepatitis) Diabetes mellitus without complication Mixed hyperlipidemia PCOS (polycystic ovarian syndrome) Hypothyroidism, unspecified type Bilateral low back pain with sciatica, sciatica laterality unspecified, unspecified chronicity Primary osteoarthritis of both hips HCG QUALITATIVE, URINE Routine Asthma in adult, severe Expected: 02/12/2018, persistent, uncomplicated Expires: 02/12/2019 MEGHAN on CPAP Essential hypertension POTS (postural orthostatic tachycardia syndrome) Morbid obesity with BMI of 40.0-44.9, adult ALANIZ (nonalcoholic steatohepatitis) Diabetes mellitus without complication Mixed hyperlipidemia PCOS (polycystic ovarian syndrome) Hypothyroidism, unspecified type Bilateral low back pain with sciatica, sciatica laterality unspecified, unspecified chronicity Primary osteoarthritis of both hips PROTIME-INR Routine Asthma in adult, severe Expected: 02/12/2018, persistent, uncomplicated Expires: 02/12/2019 MEGHAN on CPAP Essential hypertension POTS (postural orthostatic tachycardia syndrome) Morbid obesity with BMI of 40.0-44.9, adult ALANIZ (nonalcoholic steatohepatitis) Diabetes mellitus without complication Mixed hyperlipidemia PCOS (polycystic ovarian syndrome) Hypothyroidism, unspecified type Bilateral low back pain with sciatica, sciatica laterality unspecified, unspecified chronicity Primary osteoarthritis of both hips PTT Routine Asthma in adult, severe Expected: 02/12/2018, persistent, uncomplicated Expires: 02/12/2019 MEGHAN on CPAP Essential hypertension POTS (postural orthostatic tachycardia syndrome) Morbid obesity with BMI of 40.0-44.9, adult ALANIZ (nonalcoholic steatohepatitis) Diabetes mellitus without complication Mixed hyperlipidemia PCOS (polycystic ovarian syndrome) Hypothyroidism, unspecified type Bilateral low back pain with sciatica, sciatica laterality unspecified, unspecified chronicity Primary osteoarthritis of both hips TYPE AND SCREEN - POSSIBLE Routine Asthma in adult, severe Expected: 02/12/2018, TRANSFUSION persistent, uncomplicated Expires: 02/12/2019 MEGHAN on CPAP Essential hypertension POTS (postural orthostatic tachycardia syndrome) Morbid obesity with BMI of 40.0-44.9, adult ALANIZ (nonalcoholic steatohepatitis) Diabetes mellitus without complication Mixed hyperlipidemia PCOS (polycystic ovarian syndrome) Hypothyroidism, unspecified type Bilateral low back pain with sciatica, sciatica laterality unspecified, unspecified chronicity Primary osteoarthritis of both hips Health Maintenance Due Date Last Done Comments HIV SCREENING DISCUSSION 10/17/1995 TETANUS 2000 TDAP (ADULT) 2001 PAP SMEAR DISCUSSION 10/17/2003 INFLUENZA VACCINE (#1) 2017 12/22/2016, 01/02/2016, 12/03/2013 as of this encounter Procedures Procedure Name Priority Date/Time Associated Diagnosis Comments CASE REQUEST - Routine 02/12/2018 5:02 PM Asthma in adult, severe SURGERY EST persistent, uncomplicated MEGHAN on CPAP Essential hypertension POTS (postural orthostatic tachycardia syndrome) Morbid obesity with BMI of 40.0-44.9, adult ALANIZ (nonalcoholic steatohepatitis) Diabetes mellitus without complication Mixed hyperlipidemia PCOS (polycystic ovarian syndrome) Bilateral low back pain with sciatica, sciatica laterality unspecified, unspecified chronicity Primary osteoarthritis of both hips in this encounter Visit Diagnoses Diagnosis Morbid obesity with BMI of 40.0-44.9, adult - Primary Asthma in adult, severe persistent, uncomplicated MEGHAN on CPAP Obstructive sleep apnea (adult) (pediatric) Essential hypertension Unspecified essential hypertension POTS (postural orthostatic tachycardia syndrome) Tachycardia, unspecified ALANIZ (nonalcoholic steatohepatitis) Other chronic nonalcoholic liver disease Diabetes mellitus without complication Type II or unspecified type diabetes mellitus without mention of complication, not stated as uncontrolled Mixed hyperlipidemia PCOS (polycystic ovarian syndrome) Polycystic ovaries Hypothyroidism, unspecified type Bilateral low back pain with sciatica, sciatica laterality unspecified, unspecified chronicity Primary osteoarthritis of both hips Primary localized osteoarthrosis, pelvic region and thigh S/P laparoscopic sleeve gastrectomy
--- OUTSIDE RECORDS SUMMARY | 2018-05-22 12:37 | XMS RPT_ITS | Summary of Care ---
:1980 Author Organization [facility] Address [address] [place] [address] Phone Care Team Providers Name Role Phone Shirlene George MD Primary Care Provider Reason for Visit Reason Comments Other Encounter Details Date Type Department Care Team Description 02/21/2018 Telephone [facility] Missy Joseph LPN Other [address] [place] [address] Allergies Active Allergy Reactions Severity Noted Date [...] mL 12/08/2016 Active MG/0.5ML Solution under the skin. Pen-injector injection enalapril 5 MG Tab Take 5 mg by 09/12/2016 Active tablet mouth daily. fluvoxamine 25 MG Tab Take 25 mg by 12/01/2016 Active mouth. gliMEPIride 4 MG Tab TAKE 1 TABLET BY 12/20/2016 Active tablet MOUTH TWICE DAILY. levalbuterol 0.63 0.63 mg. 08/15/2016 Active MG/3ML Nebu Soln inhalation solution levalbuterol 0.63 1 vial. Active MG/3ML Nebu Soln inhalation solution LORazepam 1 MG Tab Take 1 mg by 08/15/2016 Active tablet mouth. olopatadine 0.1 % 1 drop. 08/15/2016 Active Solution ophthalmic solution pantoprazole 40 MG Tab Take 40 mg by 12/01/[address] tablet mouth. budesonide-formoterol Inhale 2 puffs. Active (SYMBICORT) 160-4.5 mcg/puff Aerosol inhaler rosuvastatin (CRESTOR) Take 1 tablet by 30 tablet 11 03/19/2017 Active 5 MG Tab per tablet mouth daily. Continuous Blood Gluc 1 kit by Other 04/02/2017 Active Correctional Maintenance Technician (FREESTYLE route. AJAY READER) Device Continuous Blood Gluc 1 kit by Other 04/02/2017 Active Sensor (FREESTYLE route. AJAY SENSOR SYSTEM) Misc lidocaine 5 % Patch Place 1 patch on Active patch skin every 24 hours. Max of 12 hours of application then remove Isometheptene-Dichlora Take by mouth as Active l-APAP (MIDRIN PO) needed. imukjwxdif-WYDE-heehcp Take by mouth as Active ne (FIORICET) needed. 50-300-40 MG Cap Cholecalciferol Take 1 capsule by 4 capsule 0 11/16/2017 Active (VITAMIN D3) 48544 mouth every 7 units CapIndications: days. Take Vitamin D deficiency weekly for 4 weeks(1 Month) fexofenadine 180 MG take 1 tablet by Active Tab tablet ORAL route every evening as needed Insulin Degludec Inject 12 Units Active (TRESIBA FLEXTOUCH) under the skin at 100 UNIT/ML Solution bedtime. Pen-injector injection levonorgestrel-ethinyl ethinyl estradiol 04/07/2016 Active estradiol 0.1-20 / MG-MCG Tab tablet levonorgestrelLEV ONORGESTREL-ETHIN YL ESTRAD 0.1-20 MG-MCG TABS LEVONORGESTREL-ET HINYL ESTRAD [id number] Damien Hedrick [id number] er Infectious Disease (18089) metformin-XR 500 MG Take 500 mg by [...] tablet mouth every 6 hours as needed. as of this encounter Active Problems Problem Noted Date Morbid obesity 02/12/2018 Overview: Added automatically from request for surgery [id number] Diabetes 02/12/2018 Overview: Added automatically from request for surgery [id number] Asthma 02/12/2018 Overview: Added automatically from request for surgery [id number] Osteoarthritis 02/12/2018 Overview: Added automatically from request for surgery [id number] Pre-operative cardiovascular examination 11/09/2017 Syncope 11/09/2017 Hyponatremia [...] type 2 diabetes. She used to see [facility] endo Dr. Wright, but the drive [...] meal- Diet was set up by a payroll tax specialist. Has been able to lose over 10 lbs so far. Goes to [facility] to see a payroll tax specialist- was referred was Dr. Hugo Mariee. [...] office: it was 86. Now seeing a psychiatry adult physician for lightheadedness. States she stopped atorvastatin due to allergic reaction since it contains sulfa. States psychiatry adult physician is going to try her on a [...] feet. Recent labs reviewed with pt. seeing psychiatry adult physician Dr. Garcia at [place] for POTS. She was restarted on Crestor. [...] Not on file as of this encounter Functional Status Functional Status Response [...] yrs or older)? as of this encounter Plan of Treatment Upcoming Encounters Date Type Specialty Care Team Description 02/27/2018 Pre-Operative Internal Medicine Nurse Assessment 03/06/2018 Surgery Tommy Acevedo MD [address]) [facility] [address] [place] [address] ass needs [place], [place] [address] [phone] 03/06/2018 Procedure Pass 03/06/2018 Hospital Encounter Tommy Acevedo MD [address] [place] [address] [phone] 03/15/2018 Office Visit General Surgery Tommy Acevedo MD [address] [place] [address] [phone] 04/10/2018 Appointment Nutrition and Tommy Acevedo MD [address] [place] [address] [phone] Dietetics Angie Barraza, RD [address] [place] [address] 04/12/2018 Office Visit General Surgery Tommy Acevedo MD [address] [place] [address] [phone] 11/08/2018 Office Visit Cardiovascular Bridger, Woody Agudelo DO [address] [place] [address] [phone] Health Maintenance Due Date Last Done Comments HIV SCREENING DISCUSSION 10/17/1995 TETANUS 2000 TDAP (ADULT) 2001 PAP SMEAR DISCUSSION 10/17/2003 INFLUENZA VACCINE Completed 01/16/2018, 01/08/2018, 12/22/2016, Additional history exists as of this encounter
--- OUTSIDE RECORDS SUMMARY | 2018-05-22 12:37 | XMS RPT_ITS | Summary of Care ---
:1980 Author Organization [facility] Address [address] [place] [address] Phone Care Team Providers Name Role Phone Shirlene George MD Primary Care Provider Reason for Referral Transfer of Care (Routine) Status Reason Specialty Diagnoses / Referred By Referred To Procedures Contact Contact New Request Administrative Diagnoses MEGHAN on CPAP POTS (postural orthostatic tachycardia syndrome) Morbid obesity with BMI of 40.0-44.9, adult ALANIZ (nonalcoholic steatohepatitis) Mixed hyperlipidemia PCOS (polycystic ovarian syndrome) Gregor Avila [facility] Patient Bilateral low back pain with sciatica, sciatica laterality unspecified, unspecified chronicity Primary osteoarthritis of both hips Type 2 diabetes mellitus with diabetic neuropathy, without long-term current use of insulin MD [facility] [address] [place] [address] [phone] (Routine) Status Reason Specialty Diagnoses / Procedures Referred By Contact Referred To Contact Alex Thorpe PA [address] [place] [address] [place] [address] (Routine) Status Reason Specialty Diagnoses / Procedures Referred By Contact Referred To Contact Alex Thorpe PA [address] [place] [address] [place] [address] (Routine) Status Reason Specialty Diagnoses / Procedures Referred By Contact Referred To Contact Alex Thorpe PA [address] [place] [address] [place] [address] (Routine) Status Reason Specialty Diagnoses / Procedures Referred By Contact Referred To Contact Alex Thorpe PA [address] [facility] [place] [address] (Routine) Status Reason Specialty Diagnoses / Procedures Referred By Contact Referred To Contact Alex Thorpe PA [address] [facility] [place] [address] [place] [address] (Routine) Status Reason Specialty Diagnoses / Procedures Referred By Contact Referred To Contact Alex Thorpe PA [address] [facility] [place] [address] Reason for Visit Auth/Cert Status Reason Specialty Diagnoses / Procedures Referred By Contact Referred To Contact Diagnoses Morbid obesity Diabetes Asthma Hyperlipidemia Osteoarthritis Procedures GASTRECTOMY LONGITUDINAL (SLEEVE) LAPAROSCOPIC EGD DIAGNOSTIC Encounter Details Date Type Department Care Team Description 03/06/2018 - Hospital Encounter [facility] Med Gregor Avila, Hyperlipidemia 03/08/[address] [place] [phone] Allergies Active Allergy Reactions Severity Noted Date [...] 1.5 mL Active MG/0.5ML Solution under the skin 7 Pen-injector once a week. injection enalapril 5 MG Tab Take 5 mg by Active tablet mouth daily. 7 TAKES AT NIGHT fluvoxamine 25 MG Take 25 mg by Active Tab mouth every 7 evening at 6 PM. levalbuterol 0.63 0.63 mg daily. Active MG/3ML Nebu Soln 7 inhalation solution levalbuterol 0.63 1 vial. Active MG/3ML Nebu Soln inhalation solution LORazepam 1 MG Tab Take 1 mg by Active tablet mouth as needed. 7 olopatadine 0.1 % 1 drop. Active Solution ophthalmic 7 solution pantoprazole 40 MG Take 40 mg by Active Tab [address] tablet mouth daily. 7 rosuvastatin Take 1 tablet by 30 tablet 11 Active (CRESTOR) 5 MG Tab mouth daily. 8 per tablet Continuous Blood 1 kit by Other Active Gluc Health/Safety Job Titles route. 8 (FREESTYLE AJAY READER) Device Continuous Blood 1 kit by Other Active Gluc Sensor route. 8 (FREESTYLE AJAY SENSOR SYSTEM) Misc lidocaine 5 % Patch Place 1 patch on Active patch skin every 24 hours. Max of 12 hours of application then remove Isometheptene-Dichlo Take by mouth as Active ral-APAP (MIDRIN PO) needed. tmkvcqvjoh-OQZQ-fbwg Take 1 capsule Active eine (FIORICET) by mouth as 50-300-40 MG Cap needed. Cholecalciferol Take 1 capsule 4 capsule 0 Active (VITAMIN D3) 37541 by mouth every 7 8 units days. Take CapIndications: weekly for 4 Vitamin D deficiency weeks(1 Month) fexofenadine 180 MG take 1 tablet by Active Tab tablet ORAL route every evening as needed NOW TAKING PRN metformin-XR 500 MG Take 500 mg by Active Tab SR 24 HR mouth daily. Take 2 tabs by mouth twice daily montelukast 10 MG Take 10 mg by Active Tab tablet mouth daily. triamcinolone 2 sprays by Active (NASACORT ALLERGY Nasal route 24HR) 55 MCG/ACT daily. Aerosol ursodiol 250 MG Tab Take 1 tablet by 180 tablet 1 Active tablet mouth 2 times 8 daily. oxyCODONE 5 MG/5ML Take 5 mL by 120 mL 0 Active Solution oral mouth every 4 8 solutionIndications: hours as needed S/P laparoscopic for Moderate sleeve gastrectomy Pain or Severe Pain for up to 7 days. acetaminophen 160 Take 20 mL by 500 mL 1 Active MG/5ML Suspension mouth every 6 8 hours as needed for Pain. ondansetron 4 MG Tab Take 1 tablet by 15 tablet 1 Active Dispersible tablet mouth every 6 8 hours as needed. Mometasone Inhale 1 puff Active Furo-Formoterol Fum daily. (DULERA) 100-5 MCG/ACT Aerosol gliMEPIride 4 MG Tab TAKE 1 TABLET BY 03/08/19 Discontinued tablet MOUTH TWICE 7 19 DAILY. budesonide-formotero Inhale 2 puffs. 03/06/19 Discontinued l (SYMBICORT) 19 160-4.5 mcg/puff Aerosol inhaler Insulin Degludec Inject 12 Units 03/08/19 Discontinued (TRESIBA FLEXTOUCH) under the skin 19 100 UNIT/ML Solution at bedtime. Pen-injector TAKES 12 TO 13 injection DAILY IN EVENING levonorgestrel-ethin ethinyl 03/08/19 Discontinued yl estradiol 0.1-20 estradiol / 7 19 MG-MCG Tab tablet levonorgestrelLE VONORGESTREL-ETH INYL ESTRAD 0.1-20 MG-MCG TABS LEVONORGESTREL-E THINYL ESTRAD [id number] Damien Hedrick [id number] ter Infectious Disease ([id number]) as of this encounter Active Problems Problem Noted Date Status post laparoscopic sleeve gastrectomy 03/06/2018 Morbid obesity 02/12/2018 Overview: Added automatically from request for surgery [id number] Diabetes 02/12/2018 Overview: Added automatically from request for surgery [id number] Asthma 02/12/2018 Overview: Added automatically from request for surgery [id number] Osteoarthritis 02/12/2018 Overview: Added automatically from request for surgery [id number] Pre-operative cardiovascular examination 11/09/2017 Syncope 11/09/2017 Hyponatremia [...] type 2 diabetes. She used to see [facility] manuel Wright, but the drive was too [...] meal- Diet was set up by a physiology teacher. Has been able to lose over 10 lbs so far. Goes to [facility] to see a physiology teacher- was referred was Dr. Hugo Mariee. Just [...] has been tested a few times for Como's in the past by previous endocrinologists and [...] office: it was 86. Now seeing a [facility] for lightheadedness. States she stopped atorvastatin due to allergic reaction since it contains sulfa. States dean of men is going to try her on a [...] feet. Recent labs reviewed with pt. seeing dean of men Dr. Garcia at [place] for POTS. She was restarted on Crestor. [...] Vital Sign Reading Time Taken Blood Pressure 129/66 03/08/2018 4:39 PM EST Pulse 107 03/08/2018 4:39 PM EST Temperature 36.6 ??C (97.9 ??F) 03/08/2018 4:39 PM EST Respiratory Rate 18 03/08/2018 4:39 PM EST Oxygen Saturation 96% 03/08/2018 4:39 PM EST Inhaled Oxygen Concentration - - Weight 126.1 kg (278 lb) 03/06/2018 9:25 AM EST Height 175.3 cm (5' 9) 03/06/2018 9:25 AM EST Body Mass Index 41.05 03/06/2018 9:25 AM EST in this encounter Functional Status Functional Status Response Date of Assessment Are you deaf or do you have serious difficulty hearing? No 03/06/2018 Are you blind or do you have serious difficulty seeing, No 03/06/2018 even when wearing glasses? Do you have serious difficulty walking or climbing stairs No 03/06/2018 (5 years or older)? Do you have difficulty dressing or bathing (5 yrs or No 03/06/2018 older)? Because of a physical, mental, or emotional condition, do No 03/06/2018 you have difficulty doing errands alone such as visiting a doctor's office or shopping (5 yrs or older)? Cognitive Status Response Date of Assessment Because of a physical, mental, or emotional condition, do No 03/06/2018 you have serious difficulty concentrating, remembering, or making decisions (5 yrs or older)? as of this encounter Discharge Summaries Gregor Avila MD - 03/08/2018 5:08 PM ESTFormatting of this note may be different from the original. Discharge Summary Name: Ayo Early Age: 37 y.o. Birthday: 1980 Admit Date: 03/06/2018 7:44 AM Discharge Date: 03/08/18 Discharge Time: 5:08 PM Discharge Unit: Med Surg Admission Information Admitting Physician: Gregor Avila MD Discharge Information Discharge Physician: Gregor Avila MD Problem List Active Hospital Problems Diagnosis ??? Status post laparoscopic sleeve gastrectomy ??? Morbid obesity ??? Diabetes ??? Asthma ??? Osteoarthritis ??? Hyperlipidemia Resolved Hospital Problems Diagnosis Date Resolved No resolved problems to display. Brief Summary of Hospital Course for Discharge Summary: Ayo Early underwent an uncomplicated laparoscopy sleeve gastrectomy by Dr Avila on 03/06/18.she recovered on the regular nursing floor. she was started on a clear liquid diet and then advancedto a full liquid diet on POD#1. On discharge, her pain was controlled on oral pain medications, ambulating and voiding without difficulty, and she was tolerating an adequate amount of liquids by mouth.she was discharged in good condition on POD#2. Brief Summary of Consults for Discharge Summary: none Brief Summary of Procedures and Imaging for Discharge Summary: Lap sleeve gastrectomy by Dr Avila on 03/06/18 Summary of last selected lab results and date obtained: Lab Results Component Value Date WBC 10.6 03/08/2018 HGB 10.3 (L) 03/08/2018 HCT 30.2 (L) 03/08/2018 PLATELET 293 03/08/2018 MCV 83.6 03/08/2018 Lab Results Component Value Date SODIUM 139 03/08/2018 POTASSIUM 4.2 03/08/2018 CHLORIDE 106 03/08/2018 CO2 23 03/08/2018 BUN 16 03/08/2018 CREATSERUM 0.7 03/08/2018 GLUCOSE 179 (A) 03/08/2018 Lab Results Component Value Date ALT 52 11/09/2017 AST 38 11/09/2017 ALKPHOS 46 11/09/2017 BILITOTAL 0.4 11/09/2017 Brief Summary of Labs for Discharge Summary: none Discharge Orders AMB REFERRAL TO HOME HEALTH - INPATIENT DISCHARGE DOYLE Current Outpatient Meds: Medication List for when you go home STOP taking these medications gliMEPIride 4 MG TABS tablet Commonly known as: AMARYL levonorgestrel-ethinyl estradiol 0.1-20 MG-MCG TABS tablet Commonly known as: EDWIGE NUR LESSINA TRESIBA FLEXTOUCH 100 UNIT/ML SOPN injection Generic drug: Insulin Degludec TAKE these medications acetaminophen 160 MG/5ML SUSP Take 20 mL by mouth every 6 hours as needed for Pain. Commonly known as: TYLENOL Dulaglutide 1.5 MG/0.5ML SOPN injection Inject 1.5 mL under the skin once a week. DULERA 100-5 MCG/ACT AERO Inhale 1 puff daily. Generic drug: Mometasone Furo-Formoterol Fum enalapril 5 MG TABS tablet Take 5 mg by mouth daily. TAKES AT NIGHT Commonly known as: VASOTEC fexofenadine 180 MG TABS tablet take 1 tablet by ORAL route every evening as needed NOW TAKING PRN Commonly known as: YOSI FIORICET 50-300-40 MG CAPS Take 1 capsule by mouth as needed. Generic drug: kbeyracqrf-QACL-gmalrhqn fluvoxamine 25 MG TABS Take 25 mg by mouth every evening at 6 PM. Commonly known as: LUVOX FREESTYLE AJAY READER CHRIS 1 kit by Other route. FREESTYLE AJAY SENSOR SYSTEM MISC 1 kit by Other route. * levalbuterol 0.63 MG/3ML NEBU inhalation solution 1 vial. Commonly known as: XOPENEX * levalbuterol 0.63 MG/3ML NEBU inhalation solution 0.63 mg daily. Commonly known as: XOPENEX lidocaine 5 % PTCH patch Place 1 patch on skin every 24 hours. Max of 12 hours of application then remove Commonly known as: LIDODERM LORazepam 1 MG TABS tablet Take 1 mg by mouth as needed. Commonly known as: ATIVAN metformin-XR 500 MG tab XL Take 500 mg by mouth daily. Take 2 tabs by mouth twice daily Commonly known as: GLUCOPHAGE-XR MIDRIN PO Take by mouth as needed. montelukast 10 MG TABS tablet Take 10 mg by mouth daily. Commonly known as: SINGULAIR NASACORT ALLERGY 24HR 55 MCG/ACT AERO 2 sprays by Nasal route daily. Generic drug: triamcinolone olopatadine 0.1 % SOLN ophthalmic solution 1 drop. Commonly known as: PATANOL ondansetron 4 MG ODT tablet Take 1 tablet by mouth every 6 hours as needed. Commonly known as: ZOFRAN-ODT oxyCODONE 5 MG/5ML SOLN oral solution Take 5 mL by mouth every 4 hours as needed for Moderate Pain or Severe Pain for up to 7 days. Commonly known as: ROXICODONE For diagnoses: S/P laparoscopic sleeve gastrectomy pantoprazole [address] tablet DR Take 40 mg by mouth daily. Commonly known as: PROTONIX rosuvastatin 5 MG TABS per tablet Take 1 tablet by mouth daily. Commonly known as: CRESTOR ursodiol 250 MG TABS tablet Take 1 tablet by mouth 2 times daily. Commonly known as: ACTIGALL vitamin D3 77027 units CAPS Take 1 capsule by mouth every 7 days. Take weekly for 4 weeks(1 Month) For diagnoses: Vitamin D deficiency * The same medication is listed twice. Please discuss with your provider. Follow-up: Other [facility] [address] [place] [address] Dr [address] [place] [phone] They will be out to your home the day after your discharge and call you before they come. Upcoming Appointments (up to five)-Some appointments for Medical Center outpatient clinics or diagnostic testing locations are not displayed below Provider Department Dept Phone 03/15/2018 3:30 PM [facility] [phone] 04/10/2018 3:00 PM Shana Martinez [facility] Dietetics [phone] 04/12/2018 3:30 PM Gregor Serna [facility] [phone] 11/08/2018 2:00 PM Dane Sparks [facility] [phone] in this encounter Discharge Instructions Gregor Avila MD - 03/08/2018Formatting of this note may be different from the original. Ayo Ealry 1980 Date of admission: 03/06/18 Date of discharge: 03/08/18 DISPOSITION: Home PRINCIPAL DIAGNOSIS: Morbid Obesity OTHER DIAGNOSES: Active Problems: Hyperlipidemia Morbid obesity Diabetes Asthma Osteoarthritis Status post laparoscopic sleeve gastrectomy Primary Care: Shirlene George Other Providers: Procedures while hospitalized: Laparoscopic sleeve gastrectomy and EGD PENDING RESULTS: Pathology results from surgery. Wound care: You may shower and wash your abdomen with mild soap and water. Pat incisions to dry. Donot soak in a bath or pool for at least 2 weeks. Your incisions are closed with dissolvable stitchesand skin glue. The glue will peel off on its own after about 1 week. One incision is closed with stitches - these will be removed at your follow up appointment. You may cover this incision with a bandaid or leave it open to air. Activity: You may walk and climb stairs as tolerated. You should not lie or sit down for more than 1hour at a time except for when sleeping at night. Activity is important to prevent blood clots. No heavy lifting of objects greater than 10 lbs (or a gallon of milk). No driving or returning to work until you no longer require narcotic pain medications (Roxicodone). Diet: You will be on a Phase 2 diet for the next 7-10 days. This includes sugar- free, non-carbonatedclear liquids, thick liquids (like strained cream soups, sugar-free pudding, and protein shakes). After about one week or when cleared by your surgeon, you may begin the Phase 3 pureed diet (as per your Bariatric Guidebook). Remember to drink at least 64 oz of liquids per day and try to take in 40-60 grams of protein. Avoid straws and carbonated beverages. Take small sips every couple of minutes. Your water bottle isyour best friend and you shouldn???t go anywhere without it! Warning: If you experience severe pain, fever over 101??F, redness or drainage from incisions, nausea/vomiting that lasts more than 12 hours, rapid heart rate or shortness of breath, call your surgeon immediately. Ayo Early Home Medication Instructions ELIF:[id number] Printed on:03/08/18 1700 Medication Information acetaminophen 160 MG/5ML Suspension Take 20 mL by mouth every 6 hours as needed for Pain. lmhhsotvbn-EXBA-ljbovzvv (FIORICET) 50-300-40 MG Cap Take 1 capsule by mouth as needed. Cholecalciferol (VITAMIN D3) 30298 units Cap Take 1 capsule by mouth every 7 days. Take weekly for 4 weeks(1 Month) Continuous Blood Gluc Health/Safety Job Titles (CXR BiosciencesSTYLE AJAY READER) Device 1 kit by Other route. Continuous Blood Gluc Sensor (FREESTYLE AJAY SENSOR SYSTEM) Misc 1 kit by Other route. Dulaglutide 1.5 MG/0.5ML Solution Pen-injector injection Inject 1.5 mL under the skin once a week. enalapril 5 MG Tab tablet Take 5 mg by mouth daily. TAKES AT NIGHT fexofenadine 180 MG Tab tablet take 1 tablet by ORAL route every evening as needed NOW TAKING PRN fluvoxamine 25 MG Tab Take 25 mg by mouth every evening at 6 PM. Yqbbkqcxjltrc-Hophqqkcj-UHYD (MIDRIN PO) Take by mouth as needed. levalbuterol 0.63 MG/3ML Nebu Soln inhalation solution 0.63 mg daily. levalbuterol 0.63 MG/3ML Nebu Soln inhalation solution 1 vial. lidocaine 5 % Patch patch Place 1 patch on skin every 24 hours. Max of 12 hours of application then remove LORazepam 1 MG Tab tablet Take 1 mg by mouth as needed. metformin-XR 500 MG Tab SR 24 HR Take 500 mg by mouth daily. Take 2 tabs by mouth twice daily Mometasone Furo-Formoterol Fum (DULERA) 100-5 MCG/ACT Aerosol Inhale 1 puff daily. montelukast 10 MG Tab tablet Take 10 mg by mouth daily. olopatadine 0.1 % Solution ophthalmic solution 1 drop. ondansetron 4 MG Tab Dispersible tablet Take 1 tablet by mouth every 6 hours as needed. oxyCODONE 5 MG/5ML Solution oral solution Take 5 mL by mouth every 4 hours as needed for Moderate Pain or Severe Pain for up to 7 days. pantoprazole [address] tablet Take 40 mg by mouth daily. rosuvastatin (CRESTOR) 5 MG Tab per tablet Take 1 tablet by mouth daily. triamcinolone (NASACORT ALLERGY 24HR) 55 MCG/ACT Aerosol 2 sprays by Nasal route daily. ursodiol 250 MG Tab tablet Take 1 tablet by mouth 2 times daily. Stop taking your Tresiba and glimipride. You do not need to begin taking your vitamins or Actigall (ursodiol) until instructed by your surgeon at your first follow-up visit. Please consult your medical doctor regarding adjusting your medications after surgery (particularly diabetic and blood pressure medications). Follow up with Dr Avila in her [facility] office on 03/15/18 at 3:30 pm. in this encounter Progress Notes Gregor Avila MD - 03/08/2018 11:12 AM ESTFormatting of this note may be different from the original. BARIATRIC SURGERY PROGRESS NOTE PATIENT NAME: Ayo Early DATE: 03/08/2018 SUMMARY OF CURRENT STATUS - POD #2 s/p lap Sleeve Gastrectomy - denies any major abdominal pain, nausea, vomiting, SOB, chest pain, leg pain, leg swelling. - has been sleepy/groggy continuously, she is very sensitive to narcotics and has been receiving 10 mg oxycodone for pain TODAY'S ASSESSMENT: - New complications over the past 24 hours: No - No concerns overnight - Pain controlled: Yes - DVT prophylaxis: Yes - Lovenox and SCDs - Midline/PICC present: - Diet is currently: Phase 2 - Nausea: No - Emesis: No - Pt has ambulated ON EXAMINATION: Blood pressure 112/62, pulse 88, temperature 97.1 ??F (36.2 ??C), temperature source Temporal, resp.rate 16, height 1.753 m (5' 9), weight 126.1 kg (278 lb), last menstrual period 03/05/2018, SpO2 94%. APPEARANCE: NAD, looks well. ABDOMEN: Soft, manuel-incisional tenderness, nondistended WOUND(S): Incisions Clean / Dry / Intact INS/OUTS: Intake/Output Summary (Last 24 hours) at 03/08/18 1112 Last data filed at 03/07/18 1730 Gross per 24 hour Intake 0 ml Output 700 ml Net -700 ml BLOOD WORK: Morning labs in EMR reviewed CBC, Coags, BMP, Mg, Phos Recent Labs 03/07/18 0539 03/08/18 0844 WBC 14.4* 10.6 HCT 34.2* 30.2* CO2 22 23 BUN 15 16 IMPRESSION: - Pt is doing well / as expected s/p Bariatric Surgery - No new issues/concerns PLAN POD 2: - Bariatric Phase 2 diet (full liquids) currently and tolerating well, goal 40 oz prior to dischargehome, 64 oz daily - Multimodal pain regimen: scheduled tylenol, scheduled toradol, PRN oxycodone - Encourage Ambulation / use of incentive spirometry - VTE prophylaxis - Continue with SCDs and Lovenox - Abdominal binder prn - blood sugars improved with addition of home dose of metformin - will dc home on metformin and diraglutide - Disposition - Likely home later today Alex Thorpe PA-C (supervising physician Gregor Avila MD) Bariatric and Minimally Invasive General Surgery Angie Barraza, RD - 03/07/2018 2:11 PM ESTFormatting of this note may be different from the original. INPATIENT POST BARIATRIC SX NUTRITION ASSESSMENT Nutrition Assessment: Anthropometrics: Ht Readings from Last 1 Encounters: 03/06/18 1.753 m (5' 9) Wt Readings from Last 3 Encounters: 03/06/18 126.1 kg (278 lb) 02/27/18 122.5 kg (270 lb) 02/12/18 120.9 kg (266 lb 9.6 oz) [place] body weight: 66.2 kg (145 lb 15.1 oz) Adjusted ideal body weight: 90.2 kg (198 lb 12.3 oz) % IBW: 192% Body mass index is 41.05 kg/m??. Calorie needs: 1655 kcal/day (25 kcal/kg IBW) Protein needs: 73-99 gm/day (1.1-1.5 gm/kg IBW) Fluid needs: 1968 mL/day Current Diet Orders Procedures ??? DIET BARIATRIC FULL LIQUID Standing Status: Standing Number of Occurrences: 1 Nutrition-Related Hx: Appetite: fair Nausea: No Vomiting: No Diarrhea: No Ms. Ayo Early is a 37 y.o. female was admitted to [facility] for: 1. Status post laparoscopic sleeve gastrectomy 2. Morbid obesity 3. Osteoarthritis 4. Asthma in adult, severe persistent, uncomplicated 5. MEGHAN on CPAP 6. Essential hypertension 7. POTS (postural orthostatic tachycardia syndrome) 8. Morbid obesity with BMI of 40.0-44.9, adult 9. ALANIZ (nonalcoholic steatohepatitis) 10. Diabetes mellitus without complication 11. Mixed hyperlipidemia 12. PCOS (polycystic ovarian syndrome) 13. Bilateral low back pain with sciatica, sciatica laterality unspecified, unspecified chronicity 14. Primary osteoarthritis of both hips 15. Pre-op exam 16. Diabetes 17. Asthma 18. Hyperlipidemia 19. Morbid obesity 20. Osteoarthritis 21. Hypothyroidism, unspecified type 22. Type 2 diabetes mellitus with diabetic neuropathy, without long-term current use of insulin 23. Lumbar degenerative disc disease 24. LFT elevation Pt is 1 day post-op from bariatric surgery: sleeve. Pt presents as mildly nutritionally compromised.Pt is tolerating Phase II of the bariatric diet well. Pt is tracking fluid intake on provided form.Reminded pt to track everything from soup, popsicles, tea, anything really at this stage can be tracked for liquid. Pt was advised of what is acceptable on Phases I and II of the bariatric diet. Encouraged fluid intake as tolerated: 1 oz q hour initially, then gradually increase to 1-1 1/2 oz q 15 minutes with goal of 64 oz/day. Advised to not drink juice or other sugary drinks. Pt verbalized understanding of fluid recommendations. Pt agreed and verbalized understanding. Provide pt with handout: RYNG and Sleeve Gastrectomy Discharge Nutrition Therapy. Pt has no nutrition questions or concerns at this time. PMH: has a past medical history of Anesthesia complication; Arthritis; Asthma; Dental disease; Depression; Diabetes mellitus; Exercise tolerance finding; Fibromyalgia; GERD (gastroesophageal reflux disease); History of blood transfusion; Hyperlipidemia; Hypothyroidism; Loss of consciousness (2016); Mi graine; Neuropathy; No advance directives; Obesity (BMI 35.0-39.9 without comorbidity); MEGHAN (obstructive sleep apnea); Pain; Polycystic ovarian syndrome; POTS (postural orthostatic tachycardia syndrome); and Wears contact lenses. PSH: has a past surgical history that includes cystectomy; septoplasty; egd diagnostic; egd w/ bx (N/A, 11/01/2017); other surgical; and gastrectomy longitudinal (sleeve) laparoscopic (N/A, 03/06/2018). Nutrition-Related Labs: Lab Results Component Value Date CHOLESTEROL 224 (H) 11/19/2017 TRIG 217 (H) 11/19/2017 HDL 41 11/19/2017 LDLCALC 140 (H) 11/19/2017 Lab Results Component Value Date CRP 7.3 02/02/2017 HEMOGLOBIN A1C Date Value Ref Range Status 11/09/2017 8.3 (H) <6 % Final Comment: NORMAL <5.7% PREDIABETES 5.7-6.4% DIABETES 6.5% OR HIGHER Lab Results Component Value Date ALBUMIN 4.2 11/09/2017 Lab Results Component Value Date CREATSERUM 0.6 03/07/2018 BUN 15 03/07/2018 SODIUM 137 03/07/2018 POTASSIUM 4.1 03/07/2018 CHLORIDE 106 03/07/2018 CO2 22 03/07/2018 BP Readings from Last 3 Encounters: 03/07/18 118/59 02/27/18 137/64 02/12/18 142/78 Nutrition Diagnosis: NI-1.4 Inadequate Energy Intake related to recent bariatric sx as evidenced by bariatric full liquiddiet. NC-1.4 Altered GI function related to alteration to structure of GI track as evidenced by recent bariatric sx: sleeve. Nutrition Intervention: 1. Reviewed the all 5 phases of the bariatric diet. 2. Reviewed fluid and protein guidelines. 3. 1 month post-op appointment is scheduled with a RD. Monitoring and Evaluation: 1. Monitor patient weight, labs, PO intake and tolerance to diet. Time spent with pt: 15 minutes Angie Barraza RDN, LDN Registered Dietitian Poultry Farmworker, Licensed Dietitian Poultry Farmworker 03/07/18 April Amador LSW - 03/07/2018 1:00 PM ESTMet with patient this date to discuss discharge plans. Patient is agreeable to [facility] that Dr. Avila is recommending. She states she would like to use [facility] if they are able to take her and if not then anywhere that will take her Care source insurance. Advised her that [facility] has not been trained by Dr. Avila and the hydration orders but [facility] has and does take Care source and does cover the [place] area. She states that will be fine but she was hoping for [facility] because she knows someone that works there. CM to make referral to [facility] and follow.Felisha Davenport, PT - 03/07/2018 10:34 AM ESTFormatting of this note may be different from the original. 03/07/18 0910 General Information RN Approved Intervention as tolerated Diagnosis Obesity Surgical Procedure Gastric sleeve Past Medical History asthma, depression, DM, fibromyalgia, GERD, hyperlipidemia, hypothyroidism, neuropathy, MEGHAN, POS, POTS Past Surgical History cystectomy, EGD Existing Precautions/Restrictions lifting Home Setting Residence Home Lives With significant other First floor bed/bathroom yes Second floor bed/bathroom no Number of Stairs to Enter Home 2 Stair Railings at Home no rail Equipment Available none used Previous Level of Function Ambulation Skills independent Assistive Device none used Level of Ambulation community General Pain Documentation (Adult, OB, Peds) Presence of Pain complains of pain/discomfort Pain Location abdomen (05/05) Pain Management Interventions declines intervention Cognitive Status Examination Orientation Status (Cognition) oriented x 4 Level of Consciousness alert Able to Follow Commands (Communication) WNL Personal Safety and Judgment intact Range of Motion (ROM) Range of Motion Examination bilateral lower extremity ROM was WFL Manual Muscle Testing (MMT) Manual Muscle Testing Results bilateral lower extremity MMT was WFL Bed Mobility Skill: Supine to Sit, Rehab Eval Level of [place]: Supine/Sit independent (Educated on log roll technique.) Transfer Skill: Sit To Stand, Rehab Eval [place] (Sit-Stand Transfers) independent Gait Skills, PT Eval Level of [place]: Gait independent Gait Distance 200 feet Gait Analysis, PT Eval Gait Pattern Used (Gait slow but steady.) Stair Negotiation Level of [place]: Stair Negotiation (Pt denied need to ambulate steps.) Balance Additional Documentation ([place]inetti: ) Sensory Examination Sensory Examination WFL General Interventions Additional Comments Pt educated on HEP for LE and UE. Pt educated on walking program at home. Pt with no further PT needs. Pt reports understanding of all education, PRIOR LEVEL AM-PAC Basic Mobility Inpatient Short Form Turning over in bed 4 - No Assistance Sitting/standing from chair 4 - No Assistance Moving from lying on back to sitting 4 - No Assistance Moving to and from bed to chair 4 - No Assistance Walk in hospital room 4 - No Assistance Climbing 3-5 steps with a railing 4 - No Assistance PRIOR LEVEL AM-PAC Mobility Raw Score 24 PRIOR LEVEL AM-PAC Mobility Functional Limitation/Modifier 0.00% Prior Functional Impairment in Basic Mobility - CURRENT [facility] Basic Mobility Inpatient Short Form Turning over in bed 4 - No Assistance Sitting/standing from chair 4 - No Assistance Moving from lying on back to sitting 4 - No Assistance Moving to and from bed to chair 4 - No Assistance Walk in hospital room 4 - No Assistance Climbing 3-5 steps with a railing 3 - A Little Assistance CURRENT [facility] Mobility Raw Score 23 CURRENT [facility] Mobility Functional Limitation/Modifier 11.20% Currently Impaired in Basic Mobility -CI Projected [facility] Mobility Raw Score 23 Projected [facility] Mobility Functional Limitation/Modifier 11.20% Projected Functional Impairment in Basic Mobility - CI Assessment Assessment Narrative Pt independent with mobility although slow due to discomfort at this time. Pt will continue to ambulate with [facility], and should not have difficulty at home. Discharge Recommendations Home with HEP. Clinical Impression Today's Treatment Included PT Eval, gait, transfers, ther-ex, pt education. Therapist Recommendations At Discharge Recommendations PT Services not recommended at Discharge Plan Plan Narrative PT Eval only. Therapist Information License # [id number] Alex Thorpe PA - 03/07/2018 9:32 AM ESTFormatting of this note may be different from the original. Attending Addendum: Patient seen and examined. Agree with below assessment. Full liquid diet. Blood sugars remain > 150. Will resume home dose of Meformin. Likely home tomorrow. Gregor Avila MD Bariatric and Minimally Invasive General Surgery [facility] BARIATRIC SURGERY PROGRESS NOTE PATIENT NAME: Ayo Early DATE: 03/07/2018 SUMMARY OF CURRENT STATUS - POD #1 s/p lap Sleeve Gastrectomy - denies any major abdominal pain (3.5/10 currently), nausea, vomiting, SOB, chest pain, leg pain, leg swelling; does report some bilateral rib cage pain; has only urinated 1x; Pt denies dysuria, hematuria or feeling like she has to urinate; I discussed with Pt a fluid bolus given heart rate in the 90's and decreased urinary output; Pt reports still groggy post-op - most recent POCT glucose 175 early this AM (was 193 on BMP); SSI (standard dose) has been in placeand initiated; pre-op diabetic meds had been stopped but will likely end up re-starting metformin; will see how sugars continue to trend; POCT glucose was 232 at 0010 TODAY'S ASSESSMENT: - New complications over the past 24 hours: No - No concerns overnight - Pain controlled: Yes - DVT prophylaxis: Yes - Lovenox and SCDs - Midline/PICC present: - Diet is currently: Phase 1 - Nausea: No - Emesis: No - Pt has ambulated just to her bathroom without problems; encouraged to ambulate in ribeiro with assistance ON EXAMINATION: Blood pressure 112/56, pulse 92, temperature 99.4 ??F (37.4 ??C), temperature source Axillary, resp.rate 18, height 1.753 m (5' 9), weight 126.1 kg (278 lb), last menstrual period 03/05/2018, SpO2 93%. APPEARANCE: NAD, looks well. Pt initially sleeping when I walk into the room but was easily aroused. No conversational dyspnea. Speaks in several word sentences. ABDOMEN: Soft, manuel-incisional tenderness, nondistended WOUND(S): Incisions Clean / Dry / Intact INS/OUTS: Intake/Output Summary (Last 24 hours) at 03/07/18 0932 Last data filed at 03/07/18 0620 Gross per 24 hour Intake 1358 ml Output 1 ml Net 1357 ml BLOOD WORK: Morning labs in EMR reviewed CBC, Coags, BMP, Mg, Phos Recent Labs 03/07/18 0539 WBC 14.4* HCT 34.2* CO2 22 BUN 15 Serum magnesium low normal (1.6) Hgb 11.7 (pre-op 12.7) IMPRESSION: - Pt is doing well / as expected s/p Bariatric Surgery - No new issues/concerns PLAN POD 1: - Bariatric Phase 1 diet (clear liquids) currently and tolerating well per Pt; will advance to full liquids; goal 40 oz prior to discharge home, 64 oz daily - Multimodal pain regimen: scheduled tylenol, scheduled toradol, PRN oxycodone - Encourage Ambulation / use of incentive spirometry (nursing communication in EMR placed and call made to nursing staff to obtain incentive spirometer for patient) - VTE prophylaxis - Continue with SCDs and Lovenox - Abdominal binder ordered - Magnesium low normal - order for 4 grams magnesium sulfate via IV placed - 1 liter fluid bolus LR ordered given decreased UOP and pulse in the low 90's - Disposition - Likely home tomorrow but possibly later today; still groggy per Pt; I want Pt up and ambulating in halls and will monitor her blood sugars as metformin likely will be re-started Alex Thorpe PA-C (supervising physician Gregor Avila MD) Bariatric and Minimally Invasive General Surgery in this encounter Plan of Treatment Upcoming Encounters Date Type Specialty Care Team Description 03/15/2018 Office Visit General Surgery Gregor Avila MD [address] [place] [address] [phone] 04/12/2018 Office Visit General Surgery Gregor Avila MD [address] [place] [address] [phone] 11/08/2018 Office Visit Cardiovascular Medicine Dane Sparks DO [address] [place] [address] [id number] Scheduled Tests Name Priority Associated Diagnoses Order Schedule SURGICAL PATHOLOGY Routine Morbid obesity ONE TIME for 1 REQUEST Diabetes Occurrences starting Asthma 03/06/2018 Hyperlipidemia Osteoarthritis POCT GLUCOSE Routine Morbid obesity Q6H - 0000,0600,1200,1800 Asthma in adult, severe until discontinued persistent, uncomplicated starting 03/06/2018, 9 MEGHAN on CPAP completed Essential hypertension Mixed hyperlipidemia PCOS (polycystic ovarian syndrome) Bilateral low back pain with sciatica, sciatica laterality unspecified, unspecified chronicity Primary osteoarthritis of both hips Status post laparoscopic sleeve gastrectomy Hypothyroidism, unspecified type Type 2 diabetes mellitus with diabetic neuropathy, without long-term current use of insulin Lumbar degenerative disc disease LFT elevation POCT GLUCOSE Routine Morbid obesity Needed until Asthma in adult, severe discontinued starting persistent, uncomplicated 03/06/2018 MEGHAN on CPAP Essential hypertension Mixed hyperlipidemia PCOS (polycystic ovarian syndrome) Bilateral low back pain with sciatica, sciatica laterality unspecified, unspecified chronicity Primary osteoarthritis of both hips Status post laparoscopic sleeve gastrectomy Hypothyroidism, unspecified type Type 2 diabetes mellitus with diabetic neuropathy, without long-term current use of insulin Lumbar degenerative disc disease LFT elevation Scheduled Referrals Name Priority Associated Diagnoses Order Schedule IP CONSULT TO NUTRITION Routine Morbid obesity One Time for 1 Asthma in adult, severe Occurrences starting persistent, uncomplicated 03/06/2018 until MEGHAN on CPAP 03/06/2018 Essential hypertension Mixed hyperlipidemia PCOS (polycystic ovarian syndrome) Bilateral low back pain with sciatica, sciatica laterality unspecified, unspecified chronicity Primary osteoarthritis of both hips Status post laparoscopic sleeve gastrectomy Hypothyroidism, unspecified type Type 2 diabetes mellitus with diabetic neuropathy, without long-term current use of insulin Lumbar degenerative disc disease LFT elevation IP CONSULT TO SOCIAL Routine Morbid obesity One Time for 1 WORK Asthma in adult, severe Occurrences starting persistent, uncomplicated 03/06/2018 until MEGHAN on CPAP 03/06/2018 Essential hypertension Mixed hyperlipidemia PCOS (polycystic ovarian syndrome) Bilateral low back pain with sciatica, sciatica laterality unspecified, unspecified chronicity Primary osteoarthritis of both hips Status post laparoscopic sleeve gastrectomy Hypothyroidism, unspecified type Type 2 diabetes mellitus with diabetic neuropathy, without long-term current use of insulin Lumbar degenerative disc disease LFT elevation AMB REFERRAL TO HOME Routine MEGHAN on CPAP Ordered: 03/08/2018 HEALTH - INPATIENT POTS (postural orthostatic DISCHARGE DOYLE tachycardia syndrome) Morbid obesity with BMI of 40.0-44.9, adult ALANIZ (nonalcoholic steatohepatitis) Mixed hyperlipidemia PCOS (polycystic ovarian syndrome) Bilateral low back pain with sciatica, sciatica laterality unspecified, unspecified chronicity Primary osteoarthritis of both hips Type 2 diabetes mellitus with diabetic neuropathy, without long-term current use of insulin Health Maintenance Due Date Last Done Comments HIV SCREENING DISCUSSION 10/17/1995 TETANUS 2000 TDAP (ADULT) 2001 PAP SMEAR DISCUSSION 10/17/2003 INFLUENZA VACCINE Completed 01/16/2018, 01/08/2018, 12/22/2016, Additional history exists as of this encounter Procedures Procedure Name Priority Date/Time Associated Diagnosis Comments POCT GLUCOSE Routine 03/08/2018 4:41 Morbid obesity PM EST Asthma in adult, severe persistent, uncomplicated MEGHAN on CPAP Essential hypertension Mixed hyperlipidemia PCOS (polycystic ovarian syndrome) Bilateral low back pain with sciatica, sciatica laterality unspecified, unspecified chronicity Primary osteoarthritis of both hips Status post laparoscopic sleeve gastrectomy Hypothyroidism, unspecified type Type 2 diabetes mellitus with diabetic neuropathy, without long-term current use of insulin Lumbar degenerative disc disease LFT elevation POCT GLUCOSE Routine 03/08/2018 11:12 Morbid obesity Results for this AM EST Asthma in adult, procedure are in severe persistent, the results uncomplicated section. MEGHAN on CPAP Essential hypertension Mixed hyperlipidemia PCOS (polycystic ovarian syndrome) Bilateral low back pain with sciatica, sciatica laterality unspecified, unspecified chronicity Primary osteoarthritis of both hips Status post laparoscopic sleeve gastrectomy Hypothyroidism, unspecified type Type 2 diabetes mellitus with diabetic neuropathy, without long-term current use of insulin Lumbar degenerative disc disease LFT elevation CBC,PLATELETS DEANDRE 03/08/2018 8:44 Results for this AM EST procedure are in the results section. MAGNESIUM DEANDRE 03/08/2018 8:44 Results for this AM EST procedure are in the results section. BASIC METABOLIC DEANDRE 03/08/2018 8:44 Results for this PANEL AM EST procedure are in the results section. POCT GLUCOSE Routine 03/08/2018 6:20 Morbid obesity Results for this AM EST Asthma in adult, procedure are in severe persistent, the results uncomplicated section. MEGHAN on CPAP Essential hypertension Mixed hyperlipidemia PCOS (polycystic ovarian syndrome) Bilateral low back pain with sciatica, sciatica laterality unspecified, unspecified chronicity Primary osteoarthritis of both hips Status post laparoscopic sleeve gastrectomy Hypothyroidism, unspecified type Type 2 diabetes mellitus with diabetic neuropathy, without long-term current use of insulin Lumbar degenerative disc disease LFT elevation POCT GLUCOSE Routine 03/08/2018 12:48 Morbid obesity Results for this AM EST Asthma in adult, procedure are in severe persistent, the results uncomplicated section. MEGHAN on CPAP Essential hypertension Mixed hyperlipidemia PCOS (polycystic ovarian syndrome) Bilateral low back pain with sciatica, sciatica laterality unspecified, unspecified chronicity Primary osteoarthritis of both hips Status post laparoscopic sleeve gastrectomy Hypothyroidism, unspecified type Type 2 diabetes mellitus with diabetic neuropathy, without long-term current use of insulin Lumbar degenerative disc disease LFT elevation POCT GLUCOSE Routine 03/07/2018 5:12 Morbid obesity PM EST Asthma in adult, severe persistent, uncomplicated MEGHAN on CPAP Essential hypertension Mixed hyperlipidemia PCOS (polycystic ovarian syndrome) Bilateral low back pain with sciatica, sciatica laterality unspecified, unspecified chronicity Primary osteoarthritis of both hips Status post laparoscopic sleeve gastrectomy Hypothyroidism, unspecified type Type 2 diabetes mellitus with diabetic neuropathy, without long-term current use of insulin Lumbar degenerative disc disease LFT elevation POCT GLUCOSE Routine 03/07/2018 12:00 Morbid obesity Results for this PM EST Asthma in adult, procedure are in severe persistent, the results uncomplicated section. MEGHAN on CPAP Essential hypertension Mixed hyperlipidemia PCOS (polycystic ovarian syndrome) Bilateral low back pain with sciatica, sciatica laterality unspecified, unspecified chronicity Primary osteoarthritis of both hips Status post laparoscopic sleeve gastrectomy Hypothyroidism, unspecified type Type 2 diabetes mellitus with diabetic neuropathy, without long-term current use of insulin Lumbar degenerative disc disease LFT elevation POCT GLUCOSE Routine 03/07/2018 10:56 Morbid obesity AM EST Asthma in adult, severe persistent, uncomplicated MEGHAN on CPAP Essential hypertension Mixed hyperlipidemia PCOS (polycystic ovarian syndrome) Bilateral low back pain with sciatica, sciatica laterality unspecified, unspecified chronicity Primary osteoarthritis of both hips Status post laparoscopic sleeve gastrectomy Hypothyroidism, unspecified type Type 2 diabetes mellitus with diabetic neuropathy, without long-term current use of insulin Lumbar degenerative disc disease LFT elevation POCT GLUCOSE Routine 03/07/2018 5:59 Morbid obesity Results for this AM EST Asthma in adult, procedure are in severe persistent, the results uncomplicated section. MEGHAN on CPAP Essential hypertension Mixed hyperlipidemia PCOS (polycystic ovarian syndrome) Bilateral low back pain with sciatica, sciatica laterality unspecified, unspecified chronicity Primary osteoarthritis of both hips Status post laparoscopic sleeve gastrectomy Hypothyroidism, unspecified type Type 2 diabetes mellitus with diabetic neuropathy, without long-term current use of insulin Lumbar degenerative disc disease LFT elevation CBC,PLATELETS Today 03/07/2018 5:39 Morbid obesity Results for this AM EST Asthma in adult, procedure are in severe persistent, the results uncomplicated section. MEHGAN on CPAP Essential hypertension Mixed hyperlipidemia PCOS (polycystic ovarian syndrome) Bilateral low back pain with sciatica, sciatica laterality unspecified, unspecified chronicity Primary osteoarthritis of both hips Status post laparoscopic sleeve gastrectomy Hypothyroidism, unspecified type Type 2 diabetes mellitus with diabetic neuropathy, without long-term current use of insulin Lumbar degenerative disc disease LFT elevation PHOSPHATE, INORGANIC Today 03/07/2018 5:39 Morbid obesity Results for this AM EST Asthma in adult, procedure are in severe persistent, the results uncomplicated section. MEGHAN on CPAP Essential hypertension Mixed hyperlipidemia PCOS (polycystic ovarian syndrome) Bilateral low back pain with sciatica, sciatica laterality unspecified, unspecified chronicity Primary osteoarthritis of both hips Status post laparoscopic sleeve gastrectomy Hypothyroidism, unspecified type Type 2 diabetes mellitus with diabetic neuropathy, without long-term current use of insulin Lumbar degenerative disc disease LFT elevation MAGNESIUM Today 03/07/2018 5:39 Morbid obesity Results for this AM EST Asthma in adult, procedure are in severe persistent, the results uncomplicated section. MEGHAN on CPAP Essential hypertension Mixed hyperlipidemia PCOS (polycystic ovarian syndrome) Bilateral low back pain with sciatica, sciatica laterality unspecified, unspecified chronicity Primary osteoarthritis of both hips Status post laparoscopic sleeve gastrectomy Hypothyroidism, unspecified type Type 2 diabetes mellitus with diabetic neuropathy, without long-term current use of insulin Lumbar degenerative disc disease LFT elevation BASIC METABOLIC Today 03/07/2018 5:39 Morbid obesity Results for this PANEL AM EST Asthma in adult, procedure are in severe persistent, the results uncomplicated section. MEGHAN on CPAP Essential hypertension Mixed hyperlipidemia PCOS (polycystic ovarian syndrome) Bilateral low back pain with sciatica, sciatica laterality unspecified, unspecified chronicity Primary osteoarthritis of both hips Status post laparoscopic sleeve gastrectomy Hypothyroidism, unspecified type Type 2 diabetes mellitus with diabetic neuropathy, without long-term current use of insulin Lumbar degenerative disc disease LFT elevation POCT GLUCOSE Routine 03/07/2018 12:10 Morbid obesity Results for this AM EST Asthma in adult, procedure are in severe persistent, the results uncomplicated section. MEGHAN on CPAP Essential hypertension Mixed hyperlipidemia PCOS (polycystic ovarian syndrome) Bilateral low back pain with sciatica, sciatica laterality unspecified, unspecified chronicity Primary osteoarthritis of both hips Status post laparoscopic sleeve gastrectomy Hypothyroidism, unspecified type Type 2 diabetes mellitus with diabetic neuropathy, without long-term current use of insulin Lumbar degenerative disc disease LFT elevation SURGICAL PATHOLOGY Routine 03/06/2018 11:01 Results for this REQUEST AM EST procedure are in the results section. GASTRECTOMY 03/06/2018 9:45 Morbid obesity LONGITUDINAL AM EST (SLEEVE) LAPAROSCOPIC REPEAT ABO/RH (D) Today 03/06/2018 8:48 Pre-op exam Results for this TYPING AM EST procedure are in the results section. GLUCOSE RANDOM Today 03/06/2018 8:48 Asthma in adult, Results for this AM EST severe persistent, procedure are in uncomplicated the results MEGHAN on CPAP section. Essential hypertension POTS (postural orthostatic tachycardia syndrome) Morbid obesity with BMI of 40.0-44.9, adult ALANIZ (nonalcoholic steatohepatitis) Diabetes mellitus without complication Mixed hyperlipidemia PCOS (polycystic ovarian syndrome) Bilateral low back pain with sciatica, sciatica laterality unspecified, unspecified chronicity Primary osteoarthritis of both hips HCG QUALITATIVE, Today 03/06/2018 8:05 Results for this URINE AM EST procedure are in the results section. in this encounter Results POCT GLUCOSE (03/08/2018 4:41 PM) POCT GLUCOSE, WHOLE BLOOD 70 - 99 mg/dL POCT GLUCOSE (03/08/2018 11:12 AM) POCT GLUCOSE, WHOLE BLOOD 179 (A) 70 - 99 mg/dL MAGNESIUM (03/08/2018 8:44 AM) MAGNESIUM 2.2 1.6 - 2.3 MG/DL [address] Performing Organization Address City/[facility]/Zipcode Phone Number [facility] - [address] [place] [phone] [facility] BASIC METABOLIC PANEL (03/08/2018 8:44 AM) GLUCOSE 156 (H) 70 - 100 MG/DL [facility] Comment: [facility] - [address] [place] [address] - NORMAL <100 mg/dL [facility] PREDIABETES 101-126 mg/dL DIABETES 126 mg/dL or higher BUN 16 7 - 20 MG/DL [address] CREATININE SERUM 0.7 0.52 - 1.04 MG/DL [address] SODIUM 139 136 - 145 MMOL/L [address] POTASSIUM 4.2 3.5 - 5.1 MMOL/L [address] CHLORIDE 106 98 - 107 MMOL/L [address] CARBON DIOXIDE (CO2) 23 22 - 30 MMOL/L [address] ANION GAP 10 8 - 16 MMOL/L [address] CALCIUM 8.2 (L) 8.4 - 10.2 MG/DL [address] ESTIMATED GFR, NON >60 ml/min/1.73sq.m [address] ESTIMATED GFR, >60 ml/min/1.73sq.m [address] GFR COMMENT Average GFR for 30-39 years old = 109. [facility] Comment: [place] [id number] Chronic Kidney disease, GFR = <60. [facility] - Kidney failure, GFR = <15. [facility] The GFR estimate is not adjusted for extreme body surface area or acute process, nor has it been validated for women or ethnic groups other than and . Performing Organization Address City/[facility]/Zipcode Phone Number [address] [address] [facility] CBC,PLATELETS (03/08/2018 8:44 AM) WBC (WHITE BLOOD COUNT) 10.6 3.6 - 11.0 /cmm [address] RBC 3.61 (L) 4.0 - 5.4 /cmm [address] HEMOGLOBIN (HGB) 10.3 (L) 12.0 - 16.0 G/DL [address] HEMATOCRIT (HCT) 30.2 (L) 36.0 - 48.0 % [address] MEAN CELL VOLUME 83.6 80.0 - 100.[address] Mean Cell HGB 28.5 26.0 - 35.[address] MEAN CELL HGB CONCENTRATION 34.1 27.0 - 37.0 G/DL [address] RBC DISTRIBUTION 13.7 11.5 - 14.5 % [address] PLATELET COUNT 293 130.0 - 400.0 /cmm [address] MEAN PLATELET VOLUME 7.0 (L) 7.4 - 11.[address] Performing Organization Address City/State/Zipcode Phone Number [address] [address] [facility] POCT GLUCOSE (03/08/2018 6:20 AM) POCT GLUCOSE, WHOLE BLOOD 137 (A) 70 - 99 mg/dL POCT GLUCOSE (03/08/2018 12:48 AM) POCT GLUCOSE, WHOLE BLOOD 134 (A) 70 - 99 mg/dL POCT GLUCOSE (03/07/2018 5:12 PM) POCT GLUCOSE, WHOLE BLOOD 70 - 99 mg/dL POCT GLUCOSE (03/07/2018 12:00 PM) POCT GLUCOSE, WHOLE BLOOD 193 (A) 70 - 99 mg/dL POCT GLUCOSE (03/07/2018 10:56 AM) POCT GLUCOSE, WHOLE BLOOD 70 - 99 mg/dL POCT GLUCOSE (03/07/2018 5:59 AM) POCT GLUCOSE, WHOLE BLOOD 175 (A) 70 - 99 mg/dL PHOSPHATE, INORGANIC (03/07/2018 5:39 AM) PHOSPHORUS 4.0 2.5 - 4.5 MG/DL [address] Performing Organization Address City/State/Zipcode Phone Number [address] [address] [facility] MAGNESIUM (03/07/2018 5:39 AM) MAGNESIUM 1.6 1.6 - 2.3 MG/DL [address] Performing Organization Address City/[facility]/Zipcode Phone Number [address] [address] [facility] BASIC METABOLIC PANEL (03/07/2018 5:39 AM) GLUCOSE 193 (H) 70 - 100 MG/DL [facility] Comment: [facility] - [address] [place] [address] NORMAL <100 mg/dL [facility] PREDIABETES 101-126 mg/dL DIABETES 126 mg/dL or higher BUN 15 7 - 20 MG/DL [address] CREATININE SERUM 0.6 0.52 - 1.04 MG/DL [address] SODIUM 137 136 - 145 MMOL/L [address] POTASSIUM 4.1 3.5 - 5.1 MMOL/L [address] CHLORIDE 106 98 - 107 MMOL/L [address] CARBON DIOXIDE (CO2) 22 22 - 30 MMOL/L [address] ANION GAP 9 8 - 16 MMOL/L [address] CALCIUM 8.5 8.4 - 10.2 MG/DL [address] ESTIMATED GFR, NON >60 ml/min/1.73sq.m [address] ESTIMATED GFR, >60 ml/min/1.73sq.m [address] GFR COMMENT Average GFR for 30-39 years old = 109. [facility] Comment: [facility] - [facility] Chronic Kidney disease, GFR = <60. [facility] Kidney failure, GFR = <15. [facility] The GFR estimate is not adjusted for extreme body surface area or acute process, nor has it been validated for women or ethnic groups other than and . Performing Organization Address City/[facility]/Zipcode Phone Number [address] [address] [facility] CBC,PLATELETS (03/07/2018 5:39 AM) WBC (WHITE BLOOD COUNT) 14.4 (H) 3.6 - 11.0 /cmm [address] RBC 4.15 4.0 - 5.4 /cmm [address] HEMOGLOBIN (HGB) 11.7 (L) 12.0 - 16.0 G/DL [address] HEMATOCRIT (HCT) 34.2 (L) 36.0 - 48.0 % [address] MEAN CELL VOLUME 82.5 80.0 - 100.[address] Mean Cell HGB 28.3 26.0 - 35.[address] MEAN CELL HGB CONCENTRATION 34.3 27.0 - 37.0 G/DL [address] RBC DISTRIBUTION 13.7 11.5 - 14.5 % [address] PLATELET COUNT 337 130.0 - 400.0 /cmm [address] MEAN PLATELET VOLUME 7.4 7.4 - 11.[address] Performing Organization Address City/[facility] Phone Number [address] [address] [facility] POCT GLUCOSE (03/07/2018 12:10 AM) POCT GLUCOSE, WHOLE BLOOD 232 (A) 70 - 99 mg/dL SURGICAL PATHOLOGY REQUEST (03/06/2018 11:01 AM) SURG PATH RESULT [facility] - [address] [facility] Surgical Final Report Patient Name: AYO EARLY [facility] Rec. #: [id number] Physician: GREGOR AVILA Specimen(s) Received Greater curvature of the stomach Other Related Clinical Data Not provided Clinical / Pre-Operative Diagnosis Morbid obesity, diabetes, asthma, hyperlipidemia, and osteoarthritis Post-Operative Diagnosis No ? Surgical Procedure Laparoscopic sleeve gastrectomy, possible open, EGD, and tap block Diagnosis: Stomach, Greater Curvature, excision: -Benign stomach consistent with patient history Electronically Signed 03/07/2018 Steven Conn MD Gross Description: The specimen is received in formalin, and labeled Stomach, greater curvature with the patient's name and second identifier.?The specimen consists of a portion of stomach measuring 16 x 5 x 5 cm.?There is a stapled margin at one end measuring 16 cm in length.?The external surface is pink win smooth and glistening.?The stomach wall measures up to 0.5 cm in thickness and the mucosa is pink win smooth and glistening with normal rugae.?No masses or lesions are grossly identified.?Sports Activities Foul Judge sections are submitted in one cassette. Billing Fee Code(s) A: 51094 Performing Organization Address City/[facility]/Zipcode Phone Number [facility] - [phone] [place] [address] [facility] REPEAT ABO/RH (D) TYPING (03/06/2018 8:48 AM) ABO/RH(D) A POSITIVE [facility] - [address] [place] [address] Performing Organization Address City/[facility]/Zipcode Phone Number [facility] - [address] [place] [phone] [facility] GLUCOSE RANDOM (03/06/2018 8:48 AM) GLUCOSE 135 (H) 70 - 100 MG/DL [address] Performing Organization Address City/[facility]/Zipcode Phone Number [facility] - [facility] [address] [place] [phone] [facility] HCG QUALITATIVE, URINE (03/06/2018 8:05 AM) HCG, QUALITATIVE, URINE NEGATIVE NEGATIVE [facility] - [address] [facility] Performing Organization Address City/State/Zipcode Phone Number [facility] - [phone] [place] [address] [facility] in this encounter Visit Diagnoses Diagnosis Status post laparoscopic sleeve gastrectomy - Primary Morbid obesity Osteoarthritis Osteoarthrosis, unspecified whether generalized or localized, unspecified site Asthma in adult, severe persistent, uncomplicated MEGHAN [...] hyperlipidemia PCOS (polycystic ovarian syndrome) Polycystic ovaries Bilateral low back pain with sciatica, sciatica laterality unspecified, unspecified chronicity Primary osteoarthritis of both hips Primary localized osteoarthrosis, pelvic region and thigh Pre-op exam Preoperative examination, unspecified Diabetes Asthma Unspecified asthma Hyperlipidemia Other and unspecified hyperlipidemia Hypothyroidism, unspecified type Type 2 diabetes mellitus with diabetic neuropathy, without long-term current use of insulin Lumbar degenerative disc disease Degeneration of lumbar or lumbosacral intervertebral disc LFT elevation Other abnormal blood chemistry Administered Medications Active Administered Medications - up to 3 most recent administrations Medication Order MAR Action Action Date Dose Rate Site acetaminophen (TYLENOL) oral solution Given 03/08/2018 00:45 EST 650 mg 650 mg 650 mg, Oral, EVERY 6 HOURS, First dose on Sun03/06/18 at 1445, Until Discontinued, Maximum dose of acetaminophen is 4000 mg from all sources in 24 hours. Given 03/08/2018 06:29 EST 650 mg Given 03/08/2018 12:30 EST 650 mg dextrose 50% injection 25 g 25 g, Intravenous, ADMINISTER DIRECTED, Starting Sun03/06/18 at 1436, Until Discontinued, Blood Glucose LESS THAN 70 mg/dL, Low Blood Sugar, Give Dextrose 50% IV 50 ml (full amp) notify physician and repeat blood sugar in 20 minutes. May repeat dextrose X1 if blood sugar less than 60 mg/dl. If unresponsive call CHASSIS ENGINEER enOXAParin (LOVENOX) injection 40 mg Given 03/07/2018 09:17 EST 40 mg Abdomen 40 mg, Subcutaneous, EVERY 12 HOURS NON-STANDARD, First dose on Sun03/06/18 at 2130, Until Discontinued, Indications: DVT/PE prophylaxis, Post-op/Post-Proc Given 03/07/2018 21:25 EST 40 mg Abdominal Tissue Given 03/08/2018 09:37 EST 40 mg Abdomen Fluticasone-Salmeterol (ADVAIR HFA) 115-21 Given 03/07/2018 07:34 EST 2 puffs MCG/ACT inhaler 2 puff 2 puff, Inhalation, 2 TIMES DAILY, First dose on Sun03/06/18 at 1900, Until Discontinued Given 03/07/2018 20:08 EST 2 puffs Given 03/08/2018 07:45 EST 2 puffs fluvoxamine (LUVOX) tablet 25 mg Given 03/07/2018 21:27 EST 25 mg 25 mg, Oral, DAILY EARLY EVENING, First dose on Mary 03/07/18 at 2000, Until Discontinued, Non-formulary medication Fluvoxamine 25mg tablet. Patient's supply received and identified . Keep this medication in locked bin in patient's room insulin lispro (HumaLOG) injection Given 03/07/2018 11:31 EST 2 Units Left Arm Subcutaneous, EVERY 6 HOURS, First dose on Sun03/06/18 at 1445, Until Discontinued, Sliding Scale parameters: Blood glucose less than 150 = 0 Units; 151 - 200 = 2 units; 201 - 250 = 4 units; 251 - 300 = 6 units; 301 - 350 = 8 units & Call Physician; 351 - 400 = 10 units & Call Physician; > 400 = Call Physician Given 03/07/2018 18:03 EST 2 Units Abdomen Given 03/08/2018 12:42 EST 2 Units Abdomen lactated ringers 1,000 mL with potassium $$New Bag$$ 03/08/2018 07:12 EST 75 mL/hr chloride 20 mEq IV solution Intravenous, CONTINUOUS, Starting Sun03/06/18 at 1445, Until Discontinued, Post-op/Post-Proc Rate/Dose Verify 03/08/2018 11:21 EST 75 mL/hr Rate/Dose Verify 03/08/2018 15:36 EST 75 mL/hr levalbuterol (XOPENEX) inhalation solution 0.63 Given 03/08/2018 02:22 EST 0.63 mg mg 0.63 mg, Inhalation, EVERY 6 HOURS, First dose on Sun03/06/18 at 1600, Until Discontinued Given 03/08/2018 07:28 EST 0.63 mg Given 03/08/2018 12:27 EST 0.63 mg lisinopril (PRINIVIL, ZESTRIL) tablet 5 mg Given 03/06/2018 18:19 EST 5 mg 5 mg, Oral, DAILY EARLY EVENING, First dose on Sun03/06/18 at 1800, Until Discontinued Given 03/07/2018 18:04 EST 5 mg loratadine (CLARITIN) tablet 10 mg Given 03/07/2018 21:25 EST 10 mg 10 mg, Oral, EVERY 24 HOURS NEEDED, Starting Sun03/07/18 at 0000, Until Discontinued, Allergies metformin-XR (GLUCOPHAGE-XR) tablet ER 1,000 Given 03/07/2018 18:03 EST 1,000 mg mg 1,000 mg, Oral, 2 TIMES DAILY, First dose on Sun03/07/18 at 1745, Until Discontinued Given 03/08/2018 09:37 EST 1,000 mg montelukast (SINGULAIR) tablet 10 mg Given 03/07/2018 21:25 EST 10 mg 10 mg, Oral, DAILY AT BEDTIME, First dose on Sun03/07/18 at 2100, Until Discontinued ondansetron 4mg/2ml (ZOFRAN) injection 4 mg Given 03/08/2018 00:45 EST 4 mg 4 mg, Intravenous, EVERY 6 HOURS, First dose on Sun03/06/18 at 1445, Until Discontinued, Post-op/Post-Proc Given 03/08/2018 06:29 EST 4 mg Given 03/08/2018 12:45 EST 4 mg oxyCODONE (ROXICODONE) oral solution 10 mg Given 03/07/2018 06:10 EST 10 mg 10 mg, Oral, EVERY 4 HOURS NEEDED, Starting Sun03/06/18 at 1436, Until Discontinued, Severe Pain, Post-op/Post-Proc Given 03/07/2018 19:24 EST 10 mg Given 03/08/2018 04:49 EST 10 mg pantoprazole (PROTONIX) injection 40 mg Given 03/06/2018 15:42 EST 40 mg 40 mg, Intravenous, DAILY, First dose on Sun03/06/18 at 1500, Until Discontinued, Dilute each 40 mg vial with 10 mL of NS. All bolus doses, whether 40 mg or 80 mg, should be administered over at least two minutes. Given 03/07/2018 09:18 EST 40 mg Given 03/08/2018 09:37 EST 40 mg promethazine (PHENERGAN) 12.5 mg in Given 03/06/2018 21:41 EST 12.5 mg 125 mL/hr sodium chloride 0.9%, with overfill 60.5 mL (total volume) IVPB 12.5 mg, Intravenous, at 121-242 mL/hr, Administer over 15-30 Minutes, EVERY 6 HOURS NEEDED, Starting Sun03/06/18 at 1436, Until Discontinued, Other, Nausea/Vomiting (2nd Line), Post-op/Post-Proc rosuvastatin (CRESTOR) tablet 5 mg 5 mg, Oral, DAILY AT BEDTIME, First dose on Mary 03/07/18 at 2100, Until Discontinued, Non-formulary medication Crestor 5mg tablet. Patient's supply received and identified . Keep this medication in locked bin in patient's room Inactive Administered Medications - up to 3 most recent administrations Medication Order MAR Action Action Date Dose Rate Site acetaminophen (TYLENOL) tablet 1,000 Given 03/06/2018 08:37 EST 1,000 mg mg 1,000 mg, Oral, ONCE, 1 dose, Sun03/06/18 at 0800, With a sip of water on arrival to [facility] bupivacaine (MARCAINE) 30 mL, bupivacaine LIPOSOME Given 03/06/2018 11:38 EST (EXPAREL) 20 mL in sodium chloride 0.9% 200 mL Injection, ONCE, 1 dose, Sun03/06/18 at 1045, 200 mL, Intra-op/Intra-Proc ceFAZolin (ANCEF) 3 g in sodium chloride Given 03/06/2018 11:03 EST 3 g 250 mL/hr 0.9%, with overfill 125 mL (total volume) IVPB 3 g, Intravenous, Administer over 30 Minutes, ONCE, 1 dose, Sun03/06/18 at 0945, Administer in surgical area only - do not administer on the floor celecoxib (CELEBREX) capsule 400 mg Given 03/06/2018 08:37 EST 400 mg 400 mg, Oral, ONCE, 1 dose, Sun03/06/18 at 0800, With a sip of water on arrival to holding dextrose 5% and lactated ringers IV $$New Bag$$ 03/06/2018 08:39 EST 75 mL/hr solution Intravenous, at 75 mL/hr, ONCE, 1 dose, Sun03/06/18 at 0800, START IF BG LESS THAN OR EQUAL TO 100 MG/DL gabapentin (NEURONTIN) capsule 600 mg Given 03/06/2018 08:37 EST 600 mg 600 mg, Oral, ONCE, 1 dose, Sun03/06/18 at 0800, With a sip of water on arrival to holding heparin injection 5,000 Units Given 03/06/2018 08:38 EST 5,000 Units Abdomen 5,000 Units, Subcutaneous, ONCE, 1 dose, Sun03/06/18 at 0800, Day of Surgery ketorolac (TORADOL) injection 15 mg Given 03/08/2018 00:45 EST 15 mg 15 mg, Intravenous, EVERY 6 HOURS, 8 doses, First dose on Sun03/06/18 at 1800, Last dose on Sun03/08/18 at 1200 Given 03/08/2018 06:29 EST 15 mg Given 03/08/2018 12:45 EST 15 mg lactated ringers IV solution $$New Bag$$ 03/07/2018 10:15 EST 1,000 mL 999 mL/hr 1,000 mL 1,000 mL, Intravenous, ONCE, 1 dose, Mary 03/07/18 at 1015 magnesium sulfate 4 g in sterile water 100 ml $$New Bag$$ 03/07/2018 11:00 EST 4 g premix IVPB 4 g, Intravenous, Administer over 8 Hours, ONCE, 1 dose, Mary 03/07/18 at 1015, Infuse at a rate of 0.5 gm/hour. Rate/Dose Verify 03/07/2018 15:30 EST 4 g scopolamine (TRANSDERM-SCOP) Patch Applied 03/06/2018 08:37 EST 1 patch Behind Ear patch 1 patch 1 patch, Transdermal, ONCE, 1 dose, Sun03/06/18 at 0800, Behind ear upon arrival to holding in this encounter
--- OUTSIDE RECORDS SUMMARY | 2018-05-22 12:39 | XMS RPT_ITS ---
:1980 Author Organization [facility] Support Name Relationship Address Phone WHIT TAMAYO Unavailable [address] + [place] [address] COMPUSULT Unavailable [address] + [place] [address] ERVIN EARLY Unavailable [address] + [place] [address] WHIT TAMAYO Unavailable [address] + [place] [address] COMPUSULT Unavailable [address] + [place] [address] ERVIN EARLY Unavailable [address] + [place] [address] WHIT TAMAYO Unavailable [address] + [place] [address] COMPUSULT Un[address] + [place] [address] ERVIN EARLY Unavailable [address] + [place] [address] WHIT TAMAYO Unavailable [address] + [place] [address] COMP[address] Un[address] + [place] [address] ERVIN EARLY Unavailable [address] + [place] / WHIT TAMAYO Unavailable [address] + [place] [address] COMPUSULT Unavailable [address] + [place] [address] SHARATH, ERVIN Unavailable [address] + [place] / BELKIS, SATHYA Unavailable Unavailable + WHIT TAMAYO Unavailable [address] + [place] [address] COMPUSULT Unavailable [address] + [place] [address] SHARATH, ERVIN Unavailable [address] + [place] / BELKIS, WHIT Unavailable [address] + [place] [address] COMPUSULT Unavailable [address] + [place] [address] SHARATH, ERVIN Unavailable [address] [phone] [place] / BLCELI, SATHYA Unavailable [address] + [place] [address] SHARATH, ERVIN Unavailable Unavailable + SHARATH, ERVIN Unavailable Unavailable + BLUBAUGH, SATHYA Unavailable [address] + [place] [address] SHARATH, ERVIN Unavailable Unavailable + SHARATH, ERVIN Unavailable Unavailable + BLUBAUGH, SATHYA Unavailable Unavailable + BLUBAUGH, SATHYA Unavailable Unavailable + BLUBAUGH, SATHYA Unavailable Unavailable + BLUBAUGH, SATHYA Unavailable Unavailable + WHIT TAMAYO Unavailable [address] + [place] [address] COMPUSULT Unavailable [address] + [place] [address] SHARATH, ERVIN Unavailable [address] [phone] [place] / BELKIS SATHYA Unavailable [address] + [place] [address] ERVIN EARLY Unavailable Unavailable + ERVIN EARLY Unavailable Unavailable + Care Team Providers Name Role Phone Porfirio Lovett Attending Unavailable Porfirio Lovett Referring Unavailable Talampas, Stoney Primary Care Unavailable Talampas, Stoney Primary Care Unavailable Delores Jain Attending Unavailable Porfirio Lyon Attending Unavailable Talampas, Stoney Primary Care Unavailable Porfirio Lyon Referring Unavailable Michelle, Porfirio Attending Unavailable Porfirio Lovett Referring Unavailable Talampas, Stoney Primary Care Unavailable Carmelo Jimenez Attending Unavailable Talampas, Stoney Primary Care Unavailable Florence Merida Attending Unavailable Talampas, Stoney Primary Care Unavailable Porfirio Lyon Attending Unavailable Porfirio Lyon Referring Unavailable Talampas, Stoney Primary Care Unavailable Porfirio Lyon Attending Unavailable Porfirio Lyon Referring Unavailable Talampas, Stoney Primary Care Unavailable TESTRAKE, ALIYAH Attending Unavailable TESTRAKE, ALIYAH Referring Unavailable TALAMPAS, STONEY D Attending Unavailable TALAMPAS, STONEY D Referring Unavailable TALAMPAS, TSONEY D Attending Unavailable TALAMPAS, STONEY D Referring Unavailable YU GREEN Referring Unavailable TESTRAKE, ALIYAH Attending Unavailable TESTRAKE, ALIYAH Referring Unavailable TESTRAKE, ALIYAH Referring Unavailable TALAMPAS, STONEY D Attending Unavailable TALAMPAS, STONEY D Referring Unavailable TALAMPAS, STONEY D Attending Unavailable TALAMPAS, STONEY D Referring Unavailable TESTRAKE, ALIYAH Attending Unavailable TESTRAKE, ALIYAH Referring Unavailable TALAMPAS, STONEY D Attending Unavailable TALAMPAS, STONEY D Referring Unavailable TALAMPAS, STONEY D Attending Unavailable TALAMPAS, STONEY D Referring Unavailable TESTRAKE, ALIYAH Attending Unavailable TESTRAKE, ALIYAH Referring Unavailable TESTRAKE, ALIYAH Attending Unavailable TESTRAKE, ALIYAH Referring Unavailable ARMOGIDA, EJSSICA A Referring Unavailable ARMOGIDA, JESSICA A Attending Unavailable ARMOGIDA, JESSICA A Referring Unavailable ARMOGIDA, JESSICA A Referring Unavailable ARMOGIDA, JESSICA A Referring Unavailable TALAMPAS, STONEY D Attending Unavailable SEBAS MOSELEY Attending Unavailable ARMOGIDA, JESSICA Serna Referring Unavailable ARMOGIDA, JESSICA Serna Referring Unavailable YU GREEN Attending Unavailable TALAMPAS, STONEY D Primary Care Unavailable SOUTH, JESSICA PAZ Attending Unavailable TALAMPAS, STONEY D Primary Care Unavailable IMANI CERNA Attending Unavailable TALAMPAS, STONEY D Primary Care Unavailable South, Dr. Jessica Germain Admitting Unavailable South, Dr. Jessica Germain Attending Unavailable UNKNOWN, PROVIDER Attending Unavailable Talampas, Stoney Primary Care Unavailable PORFIRIO LOVETT MD RInderjit MELENDEZ. Attending Unavailable PHYSICIAN, NONE Primary Care Unavailable PORFIRIO LOVETT MD, JR. Attending Unavailable PHYSICIAN, NONE Primary Care Unavailable PAPA MÉNDEZ, ASIF Attending Unavailable SELF, SELF Referring Unavailable MARGARITA, TOMMY A Attending Unavailable GREEN YU Referring Unavailable MARGARITA, TOMMY A Attending Unavailable MARGARITA, TOMMY A Referring Unavailable MAST, EVERETT Attending Unavailable MARGARITA, TOMMY A Referring Unavailable MARGARITA, TOMMY A Attending Unavailable MARGARITA, TOMMY A Referring Unavailable LU, PRINCESS Attending Unavailable MARGARITA, TOMMY A Referring Unavailable LU, PRINCESS Attending Unavailable MARGARITA, TOMMY A Referring Unavailable MARGARITA, TOMMY A Attending Unavailable MARGARITA, TOMMY A Referring Unavailable MARGARITA, TOMMY A Attending Unavailable MARGARITA, TOMMY A Referring Unavailable MARGARITA, TOMMY A Admitting Unavailable MARGARITA, TOMMY A Attending Unavailable TALAMPAS, STONEY Referring Unavailable MARGARITA, TOMMY A Attending Unavailable MARGARITA, TOMMY A Referring Unavailable MARGARITA, TOMMY A Attending Unavailable MARGARITA, TOMMY A Referring Unavailable RAFAELA LARSEN Attending Unavailable MARGARITA, TOMMY A Referring Unavailable DIVINA POWERS Attending Unavailable MARGARITA, TOMMY A Referring Unavailable MARGARITA, TOMMY A Attending Unavailable MARGARITA, TOMMY A Referring Unavailable MARGARITA, TOMMY A Attending Unavailable MARGARITA, TOMMY A Referring Unavailable MARGARITA, TOMMY A Admitting Unavailable MARGARITA, TOMMY A Attending Unavailable MARGARITA, TOMMY A Referring Unavailable MARGARITA, TOMMY A Attending Unavailable MARGARITA, TOMMY A Referring Unavailable MARGARITA, TOMMY A Attending Unavailable MARGARITA, TOMMY A Referring Unavailable MARGARITA, TOMMY A Referring Unavailable MANJIT STALEY Attending Unavailable MARGARITA, TOMMY A Attending Unavailable MARGARITA, TOMMY A Referring Unavailable PROBLEMS PROBLEMS DATE TYPE CONDITION / CODE ATTENDING STATUS SOURCE 03/20/2018 Unknown M54.2 - Cervicalgia Porfirio Lovett Active [place] / M54.2(ICD-10) [facility] Repository 03/15/2018 Admitting Post Op Visit / TOMMY AVILA Active [facility] 554() [place] 03/06/2018 Admitting Type 2 diabetes TOMMY AVILA Active [facility] Diagnosis mellitus with [place] diabetic neuropathy, Repository unspecified / E11.40(ICD-10) 03/06/2018 Admitting Type 2 diabetes TOMMY AVILA A Active [facility] Diagnosis mellitus without [place] complications / Repository E11.9(ICD-10) 03/06/2018 Admitting Essential (primary) TOMMY AVILA A Active [facility] hypertension / [place] I10(ICD-10) Repository 03/06/2018 Admitting Polycystic ovarian TOMMY AVILA A Active [facility] syndrome / [place] E28.2(ICD-10) Repository 03/06/2018 Admitting Encounter for other TOMMY AVILA Active [facility] preprocedural [place] examination / Repository Z01.818(ICD-10) 03/06/2018 Admitting Severe persistent TOMMY AVILA A Active [facility] asthma, [place] uncomplicated / Repository J45.50(ICD-10) 03/06/2018 Admitting Obstructive sleep TOMMY AVILA A Active [facility] Diagnosis apnea (adult) [place] (pediatric) / Repository G47.33(ICD-10) 03/06/2018 Admitting Dependence on other TOMMY AVILA A Active [facility] enabling machines [place] and devices / Repository Z99.89(ICD-10) 03/06/2018 Admitting Tachycardia, TOMMY AVILA A Active [facility] Diagnosis unspecified / [place] R00.0(ICD-10) Repository 03/06/2018 Admitting Orthostatic TOMMY AVILA A Active [facility] Diagnosis hypotension / [place] I95.1(ICD-10) Repository 03/06/2018 Admitting Morbid (severe) TOMMY AVILA A Active [facility] Diagnosis obesity due to [place] excess calories / Repository E66.01(ICD-10) 03/06/2018 Admitting Body mass index TOMMY AVILA Active [facility] (BMI) 40.0-44.9, [place] adult / Repository Z68.41(ICD-10) 03/06/2018 Admitting 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 [place] (ALANIZ) / Repository K75.81(ICD-10) 03/06/2018 Admitting Mixed hyperlipidemia TOMMY AVILA A Active [facility] / E78.2(ICD-10) [place] 03/06/2018 Admitting Hypothyroidism, TOMMY AVILA Active [facility] unspecified / [place] E03.9(ICD-10) Repository 03/06/2018 Admitting Lumbago with TOMMY AVILA A Active [facility] sciatica, [place] unspecified side / Repository M54.40(ICD-10) 03/06/2018 Admitting Bilateral primary TOMMY AVILA A Active [facility] osteoarthritis of [place] hip / M16.0(ICD-10) Repository 03/06/2018 Admitting Bariatric surgery TOMMY AVILA Active [facility] status / [place] Z98.84(ICD-10) Repository 03/06/2018 Admitting Other intervertebral TOMMY AVILA A Active [facility] disc degeneration, [place] lumbar region / Repository M51.36(ICD-10) 03/06/2018 Admitting Abnormal results of TOMMY AVILA Active [facility] liver function [place] studies / Repository R94.5(ICD-10) 02/12/2018 Admitting Unspecified TOMMY AVILA A Active [facility] osteoarthritis, [place] unspecified site / Repository M19.90(ICD-10) 02/12/2018 Admitting Hyperlipidemia, TOMMY AVILA A Active [facility] unspecified / [place] E78.5(ICD-10) Repository 02/12/2018 Admitting Unspecified asthmaMARGARITA LINDEN A Active [facility] uncomplicated / [place] J45.909(ICD-10) Repository 01/22/2018 Active 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) [facility] therapy / [place] Z79.899(ICD-10) Repository 01/22/2018 Active Moderate persistent NA Active [facility] asthma, [facility] uncomplicated / [place] J45.40(ICD-10) Repository 01/22/2018 Active Chronic sinusitis, NA Active [facility] unspecified / Clinic Main J32.9(ICD-10) [place] Repository 01/22/2018 Active Chronic rhinitis / NA Active [facility] J31.0(ICD-10) Clinic Main [place] Repository 12/14/2017 Active Eosinophilia / NA Active [facility] D72.1(ICD-10) Clinic Main [place] Repository 12/14/2017 Active Acute recurrent NA Active [facility] sinusitis, [facility] unspecified / [place] J01.91(ICD-10) Repository 11/27/2017 Unknown N63.10 - Unspecified Rodriguez-Chi, Active [place] lump in the right [facility] breast, unspecified Hospital quadrant / Repository N63.10(ICD-10) 11/19/2017 Admitting Encounter for TOMMY AVILA [facility] follow-up [place] examination after Repository completed treatment for conditions other than malignant neoplasm / Z09(ICD-10) 11/09/2017 Admitting Encounter for PRIYA [facility] Diagnosis preprocedural DIVINA Agudelo [facility] [place] cardiovascular Repository examination / Z01.810(ICD-10) 11/01/2017 Admitting Gastro-esophageal TOMMY AVILA [facility] reflux disease [place] without esophagitis Repository / K21.9(ICD-10) 2017 Admitting Unknown / Unknown Active [facility] Medical diagnosis UNK(Unknown) [facility] Repository 06/29/2017 Admitting New Patient / PRINCESS LU 3[facility] Diagnosis [id number]() [place] Rep[place] 06/29/2017 Admitting Eating Disorder / PRINCESS LU 3dim Diagnosis 530707() [place] Repository 06/27/2017 Active Flat foot (pes NA Active [facility] planus) (acquired), [facility] right foot / [place] M21.41(ICD-10) Repository 06/27/2017 Active Flat foot (pes NA Active [facility] planus) (acquired), [facility] left foot / [place] M21.42(ICD-10) Repository 06/27/2017 Active 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 / [facility] M72.2(ICD-10) [place] Repository 06/14/2017 Active Unknown / NA Active [place] UNK(Unknown) Clinic Main [place] Repository 05/17/2017 Unknown 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 [facility] region / Repository M47.022(ICD-10) 04/27/2017 Admitting Consult / 119() TOMMY AVILA [facility] [place] Repository 04/04/2017 Admitting Joint Pain / STAINBROOK JR., Active [facility] Diagnosis 486651() ASIF [place] Repository 04/02/2017 Admitting Nontoxic YU GREEN [facility] diagnosis multinodular goiter [facility] / E04.2(ICD-10) Repository 04/02/2017 Admitting Obesity, unspecified YU GREEN [facility] diagnosis / E66.9(ICD-10) [facility] Repository PROCEDURES PROCEDURES No Procedure Records FoundRESULTS RESULTS CERV SPINE OBL/FLEX/EXT Observed: 03/20/2018 Status: F Source: [place] COMP 1:36 PM [facility] REPOSITORY [facility] Imaging Services [address] [place] [address] Cerv Spine Obl/Flex/Ext Comp MR#: [id number] Acct: [id number] Name: MARIANA EARLY Rep #: [id number] : 1980 F 37 From: Aliyah Reyes MD PCP: Stoney Blue MD Status: REG CLI Study: Cerv Spine Obl/Flex/Ext Comp Date of Exam: 03/20/18 Exam# [id number] Ordering Dr: Porfirio Lovett MD HISTORY: CERVICALGIA COMPARISON: None FINDINGS: XR Spine Cervical 8 views with lateral flexion-extension views In the neutral projection, straightening of the upper cervical spine with mild reversal of the normal cervical lordosis at the C3-4 level. With flexion and extension, adequate cervical spine mobility without findings of abnormal motion or spondylolisthesis. Cervical disc space heights appear preserved. Posterior elements appear intact. Neural foramina appear patent. The C1-C2 relationship appears normal. RAD/Cerv Spine Obl/Flex/Ext Comp IMPRESSION: 1. Loss of the normal cervical lordosis and this improves with extension. 2. No abnormal motion or spondylolisthesis. No acute disease. 3. Consider physical therapy referral. at 0608 Reported and signed by: Aliyah Reyes MD Electronically Signed: Aliyah Reyes, at 6:06 EST Tel , Service support , CC: Porfirio Lovett MD; Stoney Blue MD Monorail Crane Operator: Signed BMP FASTING Collected: 03/08/2018 Status: F Source: [facility] 8:44 AM [place] REPOSITORY TYPE CODE TESTS RESULT OUT OF REFERENCE UNITS RANGE LAB GLF 70-100 MG/DL High GLUCOSE 156 FASTING Result Comment: NORMAL <100 mg/dL PREDIABETES 101-126 mg/dL DIABETES 126 mg/dL or higher LAB BUN 7-20 MG/DL BLOOD UREA 16 NITROGEN LAB CRET 0.52-1.04 MG/DL CREATININE SERUM 0.7 LAB NA 136-145 MMOL/L SODIUM 139 LAB K 3.5-5.1 MMOL/L POTASSIUM 4.2 LAB CL 98-107 MMOL/L CHLORIDE 106 LAB CO2 22-30 MMOL/L CO2 23 LAB AGAP 8-16 MMOL/L ANION GAP 10 LAB CA 8.4-10.2 MG/DL CALCIUM Low 8.2 LAB GFR ml/min/1.73 sq.m EST. GFR,Non >60 LAB GFRB ml/min/1.73 sq.m EST. GFR, >60 [place] LAB GFRCOM GFR Information Average GFR for 30-39 years old = 109. Result Comment: Chronic Kidney disease, GFR = <60. Kidney failure, GFR = <15. The GFR estimate is not adjusted for extreme body surface area or acute process, nor has it been validated for women or ethnic groups other than and . Performed By: #### BMPF #### Testing performed at [address] [address] CBC(NO DIFF) Collected: 03/07/2018 Status: F Source: [facility] 5:39 AM [place] REPOS[place] TYPE CODE TESTS RESULT OUT OF REFERENCE UNITS RANGE LAB WBC 3.6-11.0 /cmm WBC High COUNT 14.4 LAB RBC 4.0-5.4 /cmm RBC COUNT 4.15 LAB HGB 12.0-16.0 G/DL Low HEMOGLOBIN 11.7 LAB HCT 36.0-48.0 % Low HEMATOCRIT 34.2 LAB MCV 80.0-100.0 FL MCV 82.5 LAB MCH 26.0-35.0 PG MCH 28.3 LAB MCHC 27.0-37.0 G/DL MCHC 34.3 LAB RDW 11.5-14.5 % RDW 13.7 LAB PLTC 130.0-400.0 /cmm PLATELET COUNT 337 LAB MPV 7.4-11.0 FL MPV 7.4 Performed By: #### HEMOG, BMPF, MG, PHOS #### Testing performed at [address] [address] BMP FASTING Collected: 03/07/2018 Status: F Source: [facility] 5:39 AM [place] REPOS[place]ORY TYPE CODE TESTS RESULT OUT OF REFERENCE UNITS RANGE LAB GLF 70-100 MG/DL High GLUCOSE 193 FASTING Result Comment: NORMAL <100 mg/dL PREDIABETES 101-126 mg/dL DIABETES 126 mg/dL or higher LAB BUN 7-20 MG/DL BLOOD UREA 15 NITROGEN LAB CRET 0.52-1.04 MG/DL CREATININE SERUM 0.6 LAB NA 136-145 MMOL/L SODIUM 137 LAB K 3.5-5.1 MMOL/L POTASSIUM 4.1 LAB CL 98-107 MMOL/L CHLORIDE 106 LAB CO2 22-30 MMOL/L CO2 22 LAB AGAP 8-16 MMOL/L ANION GAP 9 LAB CA 8.4-10.2 MG/DL CALCIUM 8.5 LAB GFR ml/min/1.73s q.m EST. GFR,Non >60 LAB GFRB ml/min/1.73s q.m EST. GFR, >60 Syrian LAB GFRCOM GFR Information Average GFR for 30-39 years old = 109. Result Comment: Chronic Kidney disease, GFR = <60. Kidney failure, GFR = <15. The GFR estimate is not adjusted for extreme body surface area or acute process, nor has it been validated for women or ethnic groups other than and . Performed By: #### HEMOG, BMPF, MG, PHOS #### Testing performed at [address] [address] MAGNESIUM Collected: 03/07/2018 Status: F Source: [facility] 5:39 AM [place] REPOS[place] TYPE CODE TESTS RESULT OUT OF REFERENCE UNITS RANGE LAB MG 1.6-2.3 MG/DL MAGNESIUM 1.6 Performed By: #### HEMOG, BMPF, MG, PHOS #### Testing performed at [address] [address] PHOSPHOROUS Collected: 03/07/2018 Status: F Source: [facility] 5:39 AM [place] REPOS[place]ORY TYPE CODE TESTS RESULT OUT OF REFERENCE UNITS RANGE LAB PHOS 2.5-4.5 MG/DL PHOSPHOROUS 4.0 Performed By: #### HEMOG, BMPF, MG, PHOS #### Testing performed at [address] [address] Observed: 03/06/2018 Status: F Source: [facility] REPEAT ABO/RH 8:48 AM [place] REPOSITORY ABO/RH(D) A POSITIVE Performed By: #### RABRH #### Testing performed at [address] [address] GLUCOSE RANDOM Collected: 03/06/2018 Status: F Source: [facility] 8:48 AM [place] REPOS[place] TYPE CODE TESTS RESULT OUT OF REFERENCE UNITS RANGE LAB GLU 70-100 MG/DL High GLUCOSE 135 RANDOM Performed By: #### AGLU #### Testing performed at [address] [address] URINE HCG QUAL Collected: 03/06/2018 Status: F Source: [facility] 8:05 AM [place] REPOSITORY TYPE CODE TESTS RESULT OUT OF REFERENCE UNITS RANGE LAB UHCG NEGATIVE URINE HCG NEGATIVE QUAL Performed By: #### UHCGT #### Testing performed at [address] [address] PROGRESS Observed: 02/28/2018 Status: COMPLETED Source: [facility] 2:00 PM [facility] REPOSITORY HNO ID: [id number] Author: Lobo Rojo (Pharmacist) Service: (none) Author Type: Pharmacist Type: Progress Notes Filed: 02/28/2018 4:23 PM Note Text: TELEPHONIC ENCOUNTER Patient consents to pharmacy collaborative practice agreement. REASON FOR CONSULT: DM GOALS: A1c < 8% CONSULTING PROVIDER: Dr. Ariel Banks of Consult: 02/01/18 ? Mariana Early is a 37 year old female was last seen by PCP, Dr. Stoney Blue MD on 02/01. Subjective: Patient is presenting today for f/u pharmacotherapy management appointment for diabetes. Per PCP, patient needs A1c to be <8% by March 06 for bariatric surgery. At initial PharmD visit on 02/07, insulin degludec was initiated. 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 Current DM Medications: Metformin ER 500mg tabs - 2 tabs BID Glimepiride 4mg BID Dulaglutide 1.5mg weekly (injects in bicep of arm) on Fridays or Saturdays Insulin degludec 12 units daily + self-titration by 1 unit every 3 days that FBGs >150 (taking 13 units) Current HTN Medications: Enalapril 5mg daily ? Preventative Medications: ? On YOLA/ARB: Yes ? On Statin: Yes ? On ASA: No ROS: ? Patient denies CP, SOB, SUE, blurred vision, dizziness or lightheadedness ? Patient denies symptoms of hypoglycemia (sweating, anxiety, palpitations, hunger, and tremor) ? Patient denies symptoms of hyperglycemia (polyuria, polydipsia, polyphagia) ? Patient denies potential medication adverse effects DIET/EXERCISE/SOCIAL Hx: ? Sticking to 800 calorie diet ? Lunch: today, pulled pork with 1 piece toast and lettuce MEDICATIONS: ? Pill bottles are not present. ? Adherence: denies missed doses. ? Pharmacy: [facility] ([facility] [place] ? Rx coverage: Caresource ? Affordability: No issues ? Diabetes supplies: [facility] [place] ? Organization System: none ACTIVE PROBLEM LIST Hyperlipidemia Vitamin D Deficiency Pcos (Polycystic Ovarian Syndrome) Type 2 Diabetes Mellitus With Hyperglycemia (Hcc) Type 2 Diabetes Mellitus With Neurological Manifestation (Hcc) Type 2 Diabetes Mellitus With Polyneuropathy (Hcc) Hypoglycemia Unawareness Associated With Type 2 Diabetes Mellitus (Hcc) Hypothyroid Ovarian Cyst, Left Multiple Thyroid Nodules Bilateral Low Back Pain With Sciatica Asymptomatic Pvcs Statin Intolerance Hypogammaglobulinemia (Hcc) Recurrent Infections Allergic Rhinitis Asthma, Well Controlled Meghan On Cpap Obesity (Bmi 30-39.9) Fatty Infiltration of Liver Asthma PAST MEDICAL HISTORY Diagnosis Date - Asthma My entire life. Dr. Victorino Trevizo ([facility]) - Dystonia - Elevated LFTs - Fatty infiltration of liver 12/14/2017 - Fibromyalgia - Hyperlipidemia - Hypoglycemia unawareness associated with type 2 diabetes mellitus (HCC) - Hypothyroid - Migraine headache with aura Not always with aura; treated with Botox Injections by Dr. Ellis - Obesity - Obstructive sleep apnea treated with BiPAP Sleep Medicine Doctor--Dr. Lovett - Occipital neuralgia Dr. Lovett - PCOS (polycystic ovarian syndrome) - POTS (postural orthostatic tachycardia syndrome) - Type 2 diabetes mellitus with hyperglycemia (HCC) - Type 2 diabetes mellitus with neurological manifestation (HCC) associated with diabetes - Vitamin D deficiency ALLERGIES Allergen Reactions - Ciprofloxacin Other: See Comments Mother highly allergic to medication - Imitrex [Sumatripta* GI Upset, Vomiting - Nickel Rash, Hives, Swelling - Adhesive Rash, Other: See Comments Pulling of skin - Aspirin GI Upset - Corticosteroids (Gl* Other: See Comments Increase in blood sugars - Cymbalta [Duloxetin* Intolerance - Effexor [Venlafaxin* Other: See Comments - Lipitor [Atorvastat* Hives - Narcotics [Opioids * Other: See Comments Mood changes/depression worsen/if taking must be monitored closley - Nifedipine Other: See Comments Chest pain heart racing and skin flushing - Sulfa (Sulfonamide * Other: See Comments headaches - Tomatoes GI Upset - Topamax [Topiramate] Intolerance - Ultram [Tramadol] Shortness of Breath - Wheat, Wheat Germ Rash Medication List Medication Directions Comments Action/Plan alcohol swabs padm Use to clean injection area as directed up to twice daily blood sugar diagnostic (FREESTYLE TEST) test strip Use to test blood sugar up to 4 times daily as directed. Blood-Glucose Meter (FREESTYLE LITE METER) monitoring kit Test sugars 2 time daily and when needed. butalb/acetaminophen/caffeine (FIORICET ORAL) Take by mouth. Taking as needed for migraines Cholecalciferol, Vitamin D3, 5,000 unit tab Take 1 tablet by mouth once daily. ciclopirox (LOPROX) 0.77 % cream Apply 1 application to affected area twice daily. CRESTOR 5 mg tablet Take 1 tablet by mouth once daily. dulaglutide (TRULICITY) 1.5 mg/0.5 mL pnij Inject 1.5 mL subcutaneously once each week. enalapril (VASOTEC) 5 mg tablet Take 1 tablet by mouth once daily. fexofenadine (ROLA) 180 mg tablet take 1 tablet by ORAL route every evening as needed fluvoxaMINE Maleate (LUVOX) 25 mg tablet Take 1 tablet by mouth daily at bedtime. glimepiride (AMARYL) 4 mg tablet TAKE 1 TABLET BY MOUTH TWICE DAILY. insulin degludec (TRESIBA) 100 unit/mL (3 mL) injection Inject 12 Units subcutaneously daily at bedtime. Insulin [place], Disposable, (BD ULTRA-FINE KALEB PEN NEEDLE) 32 gauge x ndle Use to inject insulin once daily as directed isomethept/dichlphn/acetaminop (MIDRIN ORAL) Take by mouth. Taking as needed for migraines Lancets (FREESTYLE LANCETS) lancets Test blood sugar(s) 2 times daily. Dx: DM2 250.00. Insulin: No levalbuterol (XOPENEX) 0.63 mg/3 mL nebulizer solution Use 3 mL via nebulizer every 4 hours as needed for Wheezing/Shortness of Breath. levalbuterol tartrate HFA 45 mcg/actuation inhaler Inhale 2 Puffs as instructed every 4 hours as needed. Use with spacer levonorgestrel (MIRENA) 20 mcg/24 hr (5 years) IUD Inserted in office LORazepam (ATIVAN) 1 mg tablet Take 1 tablet by mouth twice daily as needed for Anxiety. ([facility] provider) metaxalone (SKELAXIN) 800 mg tablet take 1 tablet by mouth three times a day if needed for pain metFORMIN ER (GLUCOPHAGE XR) 500 mg 24 hr tablet Take 2 tablets by mouth twice daily. mometasone-formoterol (DULERA) 100-5 mcg/actuation inhaler Inhale 2 Puffs as instructed twice daily. Use with spacer. Rinse mouth out after use. montelukast (SINGULAIR) 10 mg tablet Take 1 tablet by mouth daily at bedtime. Nebulizer and Compressor For Neb jose luis Use as directed. Dx: moderate persistent asthma J45.40, disp:lifetime supplies olopatadine (PATANOL) 0.1 % ophthalmic solution Use 1 Drop in both eyes twice daily. Has already tired all the other meds in this class (side effects or lack of efficacy) ondansetron orally disintegrating (ZOFRAN ODT) 4 mg disintegrating tablet Take 1 tablet by mouth every 8 hours as needed for Nausea/Vomiting. pantoprazole DR (PROTONIX) 40 mg tablet Take 1 tablet by mouth daily before breakfast. Take on empty stomach, 1/2 hr before meal. TAKING NEEDED NOW triamcinolone acetonide (KENALOG) 0.1 % cream Apply 1 application to affected area three times daily. Apply sparingly to area for rash/itching. triamcinolone acetonide (NASACORT) 55 mcg nasal inhaler Use 2 Sprays in the nose once daily. varicella virus vaccine, PF, (VARIVAX) 1,350 unit/0.5 mL injection Give 1 dose then repeat dose in 4 to 8 weeks later Patient not taking: Reported on 02/01/2018 GLYCEMIC CONTROL: ? Glucometer present at visit: No ? SMBG?s: has Freestyle Haroldo Date Fasting AM 2 hr PP Before Lunch 2 hr PP Before Dinner 2 hr PP Bedtime 02/28 119, 136 106 172 1 148 104 111, 193 128 ? Hypoglycemia: had several numbers in the 40s-50s; says most occurred in evening after work or at bedtime (had most episodes when taking 14 units; says sometimes she is so busy at work that she can forget to eat or not go to lunch); started carrying snacks with her; last low was 1 week ago (was 68) ? How corrected: sugar tabs Objective: VITALS: No vitals taken today Last 3 Encounter BP Readings: Date: BP: 02/11/2018 96/66 02/01/2018 112/72 01/22/2018 115/74 Wt: 122.5 kg (270 lb) BMI: 39.99 kg/(m2) LABS Lab Results Component Value Date HBA1C 9.1 01/22/2018 HBA1C 7.5 03/20/2017 HBA1C 7.6 08/07/2016 CMP: Glucose 155 01/22/2018 BUN 11 02/22/2018 Creatinine, Whole Blood (iSTAT) 0.65 02/22/2018 Sodium 139 02/22/2018 Potassium 4.3 02/22/2018 Chloride 100 02/22/2018 CO2 24 02/22/2018 Protein, Total 7.2 02/22/2018 Albumin 4.4 02/22/2018 Calcium 9.5 01/22/2018 Alkaline Phosphatase 54 02/22/2018 Bilirubin, Total 0.3 02/22/2018 AST 39 02/22/2018 ALT 43 02/22/2018 eGFR >60 (per BMP on 01/22/18) Last Lipid Panel Lab Results Component Value Date CHOL 239 01/22/2018 Lab Results Component Value Date HDL 42 01/22/2018 Lab Results Component Value Date LDL 161 01/22/2018 Lab Results Component Value Date TG 179 01/22/2018 Albumin/Creat Ratio (mg/g) Date Value 03/20/2017 45 (H) PHARMACOTHERAPY ASSESSMENT/PLAN: 1. Type 2 diabetes mellitus with hyperglycemia, without long- term current use of insulin ([facility]) - ICD9: 250.00, 790.29, ICD10: E11.65 A1c goal <8% but could consider <7% given age; patient was started on insulin last month with goal to reduce A1c from 9.1--> below 8% by 03/06 so she could get bariatric surgery; patient already had pre-op labs - per [facility], does not appear that A1c was drawn; patient reports occasionally having low blood sugars, most often occurring in evenings on days where she doesn't have time to eat lunch at work; SMBG log shows BG are in goal range for A1c <8%; will not make insulin dose adjustments today; PharmD counseled patient to be sure to incorporate protein into diet and to bring a protein-rich snack with her to work to eat if she doesn't have time to eat lunch; PharmD reviewed proper identification/management of low blood sugars; will not schedule for f/u appt with PharmD at this time - (PharmD was originally consulted to help get patient's BG controlled prior to surgery, and surgery is scheduled for next week); patient to call PharmD if she wants to re-establish care as she will likely need a lot of medication dose adjustments after her surgery; renal fxn and LFTs WNL and appropriate for continued use - CONTINUE metformin ER 1000mg BID, glimepiride 4mg BID, dulaglutide 1.5mg weekly, and insulin degludec 13 units daily - Will resend prescription for test strips to [facility] at patient request Patient does not have f/u appt scheduled with PCP at this time. Patient verbalized understanding of instructions. Lobo Rojo PharmD, [facility] Primary Care Clinical Pharmacist [facility] AGUSTINOV Observed: 02/28/2018 Status: COMPLETED Source: [place] 2:00 PM [facility] REPOSITORY Office Visit (PHMEWO) MARIANA EARLY ([id number]) 1980 F Date Time Provider Department 02/28/18 2:00 PM CEE (PHARMACIST)LOBO During your visit today, we recorded the following information about you: ROM MARQUEZ 02/28/2018 4:23 PM Signed TELEPHONIC ENCOUNTER Patient consents to pharmacy collaborative practice agreement. REASON FOR CONSULT: DM GOALS: A1c < 8% CONSULTING PROVIDER: Dr. Blue Date of Consult: 02/01/18 ? Mariana Early is a 37 year old female was last seen by PCP, Dr. Stoney Blue MD on 02/01. Subjective: Patient is presenting today for f/u pharmacotherapy management appointment for diabetes. Per PCP, patient needs A1c to be <8% by March 06 for bariatric surgery. At initial PharmD visit on 02/07, insulin degludec was initiated. 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 Current DM Medications: Metformin ER 500mg tabs - 2 tabs BID Glimepiride 4mg BID Dulaglutide 1.5mg weekly (injects in bicep of arm) on Fridays or Saturdays Insulin degludec 12 units daily + self-titration by 1 unit every 3 days that FBGs >150 (taking 13 units) Current HTN Medications: Enalapril 5mg daily ? Preventative Medications: ? On YOLA/ARB: Yes ? On Statin: Yes ? On ASA: No ROS: ? Patient denies CP, SOB, SUE, blurred vision, dizziness or lightheadedness ? Patient denies symptoms of hypoglycemia (sweating, anxiety, palpitations, hunger, and tremor) ? Patient denies symptoms of hyperglycemia (polyuria, polydipsia, polyphagia) ? Patient denies potential medication adverse effects DIET/EXERCISE/SOCIAL Hx: ? Sticking to 800 calorie diet ? Lunch: today, pulled pork with 1 piece toast and lettuce MEDICATIONS: ? Pill bottles are not present. ? Adherence: denies missed doses. ? Pharmacy: [facility] ([place]) ? Rx coverage: [employer] ? Affordability: No issues ? Diabetes supplies: Freestyle Haroldo ? Organization System: none ACTIVE PROBLEM LIST Hyperlipidemia Vitamin D Deficiency Pcos (Polycystic Ovarian Syndrome) Type 2 Diabetes Mellitus With Hyperglycemia (Hcc) Type 2 Diabetes Mellitus With Neurological Manifestation (Hcc) Type 2 Diabetes Mellitus With Polyneuropathy (Hcc) Hypoglycemia Unawareness Associated With Type 2 Diabetes Mellitus (Hcc) Hypothyroid Ovarian Cyst, Left Multiple Thyroid Nodules Bilateral Low Back Pain With Sciatica Asymptomatic Pvcs Statin Intolerance Hypogammaglobulinemia (Hcc) Recurrent Infections Allergic Rhinitis Asthma, Well Controlled Meghan On Cpap Obesity (Bmi 30-39.9) Fatty Infiltration of Liver Asthma PAST MEDICAL HISTORY Diagnosis Date - Asthma My entire life. Dr. Victorino Trevizo ([facility]) - Dystonia - Elevated LFTs - Fatty infiltration of liver 12/14/2017 - Fibromyalgia - Hyperlipidemia - Hypoglycemia unawareness associated with type 2 diabetes mellitus (HCC) - Hypothyroid - Migraine headache with aura Not always with aura; treated with Botox Injections by Dr. Ellis - Obesity - Obstructive sleep apnea treated with BiPAP Sleep Medicine Doctor--Dr. Lovett - Occipital neuralgia Dr. Lovett - PCOS (polycystic ovarian syndrome) - POTS (postural orthostatic tachycardia syndrome) - Type 2 diabetes mellitus with hyperglycemia (HCC) - Type 2 diabetes mellitus with neurological manifestation (HCC) associated with diabetes - Vitamin D deficiency ALLERGIES Allergen Reactions - Ciprofloxacin Other: See Comments Mother highly allergic to medication - Imitrex [Sumatripta* GI Upset, Vomiting - Nickel Rash, Hives, Swelling - Adhesive Rash, Other: See Comments Pulling of skin - Aspirin GI Upset - Corticosteroids (Gl* Other: See Comments Increase in blood sugars - Cymbalta [Duloxetin* Intolerance - Effexor [Venlafaxin* Other: See Comments - Lipitor [Atorvastat* Hives - Narcotics [Opioids * Other: See Comments Mood changes/depression worsen/if taking must be monitored closley - Nifedipine Other: See Comments Chest pain heart racing and skin flushing - Sulfa (Sulfonamide * Other: See Comments headaches - Tomatoes GI Upset - Topamax [Topiramate] Intolerance - Ultram [Tramadol] Shortness of Breath - Wheat, Wheat Germ Rash Medication List Medication Directions Comments Action/Plan alcohol swabs padm Use to clean injection area as directed up to twice daily blood sugar diagnostic (FREESTYLE TEST) test strip Use to test blood sugar up to 4 times daily as directed. Blood-Glucose Meter (FREESTYLE LITE METER) monitoring kit Test sugars 2 time daily and when needed. butalb/acetaminophen/caffeine (FIORICET ORAL) Take by mouth. Taking as needed for migraines Cholecalciferol, Vitamin D3, 5,000 unit tab Take 1 tablet by mouth once daily. ciclopirox (LOPROX) 0.77 % cream Apply 1 application to affected area twice daily. CRESTOR 5 mg tablet Take 1 tablet by mouth once daily. dulaglutide (TRULICITY) 1.5 mg/0.5 mL pnij Inject 1.5 mL subcutaneously once each week. enalapril (VASOTEC) 5 mg tablet Take 1 tablet by mouth once daily. fexofenadine (ROLA) 180 mg tablet take 1 tablet by ORAL route every evening as needed fluvoxaMINE Maleate (LUVOX) 25 mg tablet Take 1 tablet by mouth daily at bedtime. glimepiride (AMARYL) 4 mg tablet TAKE 1 TABLET BY MOUTH TWICE DAILY. insulin degludec (TRESIBA) 100 unit/mL (3 mL) injection Inject 12 Units subcutaneously daily at bedtime. Insulin [place], Disposable, (BD ULTRA-FINE KALEB PEN NEEDLE) 32 gauge x 5/32 ndle Use to inject insulin once daily as directed isomethept/dichlphn/acetaminop (MIDRIN ORAL) Take by mouth. Taking as needed for migraines Lancets (FREESTYLE LANCETS) lancets Test blood sugar(s) 2 times daily. Dx: DM2 250.00. Insulin: No levalbuterol (XOPENEX) 0.63 mg/3 mL nebulizer solution Use 3 mL via nebulizer every 4 hours as needed for Wheezing/Shortness of Breath. levalbuterol tartrate HFA 45 mcg/actuation inhaler Inhale 2 Puffs as instructed every 4 hours as needed. Use with spacer levonorgestrel (MIRENA) 20 mcg/24 hr (5 years) IUD Inserted in office LORazepam (ATIVAN) 1 mg tablet Take 1 tablet by mouth twice daily as needed for Anxiety. ([facility] provider) metaxalone (SKELAXIN) 800 mg tablet take 1 tablet by mouth three times a day if needed for pain metFORMIN ER (GLUCOPHAGE XR) 500 mg 24 hr tablet Take 2 tablets by mouth twice daily. mometasone-formoterol (DULERA) 100-5 mcg/actuation inhaler Inhale 2 Puffs as instructed twice daily. Use with spacer. Rinse mouth out after use. montelukast (SINGULAIR) 10 mg tablet Take 1 tablet by mouth daily at bedtime. Nebulizer and Compressor For Neb jose luis Use as directed. Dx: moderate persistent asthma J45.40, disp:lifetime supplies olopatadine (PATANOL) 0.1 % ophthalmic solution Use 1 Drop in both eyes twice daily. Has already tired all the other meds in this class (side effects or lack of efficacy) ondansetron orally disintegrating (ZOFRAN ODT) 4 mg disintegrating tablet Take 1 tablet by mouth every 8 hours as needed for Nausea/Vomiting. pantoprazole DR (PROTONIX) 40 mg tablet Take 1 tablet by mouth daily before breakfast. Take on empty stomach, 1/2 hr before meal. TAKING NEEDED NOW triamcinolone acetonide (KENALOG) 0.1 % cream Apply 1 application to affected area three times daily. Apply sparingly to area for rash/itching. triamcinolone acetonide (NASACORT) 55 mcg nasal inhaler Use 2 Sprays in the nose once daily. varicella virus vaccine, PF, (VARIVAX) 1,350 unit/0.5 mL injection Give 1 dose then repeat dose in 4 to 8 weeks later Patient not taking: Reported on 02/01/2018 GLYCEMIC CONTROL: ? Glucometer present at visit: No ? SMBG?s: has Freestyle Haroldo Date Fasting AM 2 hr PP Before Lunch 2 hr PP Before Dinner 2 hr PP Bedtime 02/28 119, 136 106 172 02/27 148 104 111, 193 128 ? Hypoglycemia: had several numbers in the 40s-50s; says most occurred in evening after work or at bedtime (had most episodes when taking 14 units; says sometimes she is so busy at work that she can forget to eat or not go to lunch); started carrying snacks with her; last low was 1 week ago (was 68) ? How corrected: sugar tabs Objective: VITALS: No vitals taken today Last 3 Encounter BP Readings: Date: BP: 02/11/2018 96/66 02/01/2018 112/72 01/22/2018 115/74 Wt: 122.5 kg (270 lb) BMI: 39.99 kg/(m2) LABS Lab Results Component Value Date HBA1C 9.1 01/22/2018 HBA1C 7.5 03/20/2017 HBA1C 7.6 08/07/2016 CMP: Glucose 155 01/22/2018 BUN 11 02/22/2018 Creatinine, Whole Blood (iSTAT) 0.65 02/22/2018 Sodium 139 02/22/2018 Potassium 4.3 02/22/2018 Chloride 100 02/22/2018 CO2 24 02/22/2018 Protein, Total 7.2 02/22/2018 Albumin 4.4 02/22/2018 Calcium 9.5 01/22/2018 Alkaline Phosphatase 54 02/22/2018 Bilirubin, Total 0.3 02/22/2018 AST 39 02/22/2018 ALT 43 02/22/2018 eGFR >60 (per BMP on 01/22/18) Last Lipid Panel Lab Results Component Value Date CHOL 239 01/22/2018 Lab Results Component Value Date HDL 42 01/22/2018 Lab Results Component Value Date LDL 161 01/22/2018 Lab Results Component Value Date TG 179 01/22/2018 Albumin/Creat Ratio (mg/g) Date Value 03/20/2017 45 (H) PHARMACOTHERAPY ASSESSMENT/PLAN: 1. Type 2 diabetes mellitus with hyperglycemia, without long- term current use of insulin ([facility]) - ICD9: 250.00, 790.29, ICD10: E11.65 A1c goal <8% but could consider <7% given age; patient was started on insulin last month with goal to reduce A1c from 9.1--> below 8% by 03/06 so she could get bariatric surgery; patient already had pre-op labs - per [facility]where, does not appear that A1c was drawn; patient reports occasionally having low blood sugars, most often occurring in evenings on days where she doesn't have time to eat lunch at work; SMBG log shows BG are in goal range for A1c <8%; will not make insulin dose adjustments today; PharmD counseled patient to be sure to incorporate protein into diet and to bring a protein-rich snack with her to work to eat if she doesn't have time to eat lunch; PharmD reviewed proper identification/management of low blood sugars; will not schedule for f/u appt with PharmD at this time - (PharmD was originally consulted to help get patient's BG controlled prior to surgery, and surgery is scheduled for next week); patient to call PharmD if she wants to re-establish care as she will likely need a lot of medication dose adjustments after her surgery; renal fxn and LFTs WNL and appropriate for continued use - CONTINUE metformin ER 1000mg BID, glimepiride 4mg BID, dulaglutide 1.5mg weekly, and insulin degludec 13 units daily - Will resend prescription for test strips to [facility] at patient request Patient does not have f/u appt scheduled with PCP at this time. Patient verbalized understanding of instructions. Lobo Rojo, MaynorD, BCPS Primary Care Clinical Pharmacist [facility] Allergies As of Date: 02/28/2018 Noted Allergy Reaction CIPROFLOXACIN 04/18/2011 14 - Other: See Comments Comments: Mother highly allergic to medication IMITREX (SUMATRIPTAN SUCCINATE) 04/18/2011 8 - GI Upset 11 - Vomiting NICKEL 05/14/2015 2 - Rash 4 - Hives 7 - Swelling ADHESIVE 04/18/2011 2 - Rash 14 - Other: See Comments Comments: Pulling of skin ASPIRIN 04/18/2011 8 - GI Upset CORTICOSTEROIDS (GLUCOCORTICOIDS) 08/01/2014 14 - Other: See Comments Comments: Increase in blood sugars CYMBALTA (DULOXETINE) 11/28/2013 5 - Intolerance EFFEXOR (VENLAFAXINE) 08/23/2015 14 - Other: See Comments LIPITOR (ATORVASTATIN CALCIUM) 08/26/2014 4 - Hives NARCOTICS (OPIOIDS - MORPHINE JERRICA*11/02/2011 14 - Other: See Comments Comments: Mood changes/depression worsen/if taking must be monitored closley NIFEDIPINE 08/27/2013 14 - Other: See Comments Comments: Chest pain heart racing and skin flushing SULFA (SULFONAMIDE ANTIBIOTICS) 04/18/2011 14 - Other: See Comments Comments: headaches TOMATOES 01/26/2017 8 - GI Upset TOPAMAX (TOPIRAMATE) 11/28/2013 5 - Intolerance ULTRAM (TRAMADOL) 08/01/2014 12 - Shortness of Breath WHEAT, WHEAT GERM 01/26/2017 2 - Rash Date Reviewed: 02/11/2018 Reviewed by: Sebas Moseley - Fully Assessed Reason for Visit: Allied Health Visit [5] Cmt: DM f/u Primary Visit Diagnosis:Type 2 diabetes mellitus with hyperglycemia, without long-term current use of insulin (HCC) [E11.65] Order(s):insulin degludec (TRESIBA) 100 unit/mL (3 mL) injectionInject 13 Units subcutaneously daily at bedtime.Disp: Rfl: 0 blood sugar diagnostic (FREESTYLE TEST) test stripUse to test blood sugar up to 4 times daily as directed.Disp: 50 StripRfl: 5 Prescriptions as of 02/28/2018 Sig: INSULIN DEGLUDEC (U-100) 100 * Inject 13 Units subcutaneousl* BLOOD SUGAR DIAGNOSTIC STRIPS Use to test blood sugar up to* PEN NEEDLE, DIABETIC 32 GAUGE* Use to inject insulin once da* ALCOHOL SWABS Use to clean injection area a* MIDRIN ORAL Take by mouth. Taking as need* FIORICET ORAL Take by mouth. Taking as need* OLOPATADINE 0.1 % EYE DROPS Use 1 Drop in both eyes twice* FEXOFENADINE 180 MG TABLET take 1 tablet by ORAL route * TRIAMCINOLONE ACETONIDE 55 MC* Use 2 Sprays in the nose once* MONTELUKAST 10 MG TABLET Take 1 tablet by mouth daily * MOMETASONE-FORMOTEROL HFA 100* Inhale 2 Puffs as instructed * LEVALBUTEROL HFA 45 MCG/ACTUA* Inhale 2 Puffs as instructed * NEBULIZER AND COMPRESSOR Use as directed. Dx: moderat* METAXALONE 800 MG TABLET take 1 tablet by mouth three * TRIAMCINOLONE ACETONIDE 0.1 %* Apply 1 application to affect* CICLOPIROX 0.77 % TOPICAL CRE* Apply 1 application to affect* VARICELLA VIRUS VACCINE LIVE * Give 1 dose then repeat dose * Patient not taking: Reported on 02/01/2018 GLIMEPIRIDE 4 MG TABLET TAKE 1 TABLET BY MOUTH TWICE * DULAGLUTIDE 1.5 MG/0.5 ML SUB* Inject 1.5 mL subcutaneously * FLUVOXAMINE 25 MG TABLET Take 1 tablet by mouth daily * PANTOPRAZOLE 40 MG TABLET,DEL* Take 1 tablet by mouth daily * ENALAPRIL MALEATE 5 MG TABLET Take 1 tablet by mouth once d* METFORMIN ER 500 MG TABLET,EX* Take 2 tablets by mouth twice* LEVALBUTEROL 0.63 MG/3 ML LUIS* Use 3 mL via nebulizer every * LORAZEPAM 1 MG TABLET Take 1 tablet by mouth twice * CRESTOR 5 MG TABLET Take 1 tablet by mouth once d* ONDANSETRON 4 MG DISINTEGRATI* Take 1 tablet by mouth every * LEVONORGESTREL 20 MCG/24 HR (* Inserted in office LANCETS Test blood sugar(s) 2 times d* CHOLECALCIFEROL (VITAMIN D3) * Take 1 tablet by mouth once d* * BLOOD-GLUCOSE METER KIT Test sugars 2 time daily and * Problem List As Of Date 02/28/2018 Noted Resolved Diabetes mellitus type 2, uncontrolled (HCC) [E*INVALID FOR*09/03/2015 Hyperlipidemia [E78.5] INVALID FOR* Obesity, Class III, BMI 40-49.9 (morbid obesity*INVALID FOR*09/03/2015 Hypothyroid [E03.9] INVALID FOR*09/03/2015 Obstructive sleep apnea [G47.33] INVALID FOR*09/03/2015 Asthma, moderate persistent [J45.40] INVALID FOR*09/03/2015 Albuminuria [R80.9] INVALID FOR*09/03/2015 Vitamin D deficiency [E55.9] INVALID FOR* Faintness [R55] INVALID FOR*09/03/2015 Type 2 diabetes, controlled, with neuropathy (H*INVALID FOR*02/05/2015 PCOS (polycystic ovarian syndrome) [E28.2] INVALID FOR* More... Migraine headache without aura [G43.009] INVALID FOR*09/03/2015 More... Restless legs syndrome (RLS) [G25.81] INVALID FOR*09/03/2015 More... Right ankle instability [M25.371] INVALID FOR*09/03/2015 Left ankle instability [M25.372] INVALID FOR*09/03/2015 Type 2 diabetes mellitus with hyperglycemia (HC* More... Type 2 diabetes mellitus with neurological john* More... Type 2 diabetes mellitus with polyneuropathy (H* Hypoglycemia unawareness associated with type 2* Obesity [E66.9] 09/05/2016 Hypothyroid [E03.9] More... Ovarian cyst, left [N83.202] INVALID FOR* Multiple thyroid nodules [E04.2] INVALID FOR* Bilateral low back pain with sciatica [M54.40] INVALID FOR* Asymptomatic PVCs [I49.3] INVALID FOR* Morbid obesity with BMI of 40.0-44.9, adult (HC*INVALID FOR*05/14/2017 Statin intolerance [Z78.9] INVALID FOR* More... Hypogammaglobulinemia (HCC) [D80.1] INVALID FOR* Recurrent infections [B99.9] INVALID FOR* Allergic rhinitis [J30.9] INVALID FOR* Asthma, well controlled [J45.909] INVALID FOR* MEGHAN on CPAP [G47.33, Z99.89] INVALID FOR* Obesity (BMI 30-39.9) [E66.9] INVALID FOR* Fatty infiltration of liver [K76.0] INVALID FOR* Asthma [J45.909] More... Prescriptions ordered this encounter Disp Refills Start End INSULIN DEGLUDEC (U-100) 100 UNIT/ML* 0 02/28/2018 Class: Med Update Route: SUBCUTANEOUS Sig: Inject 13 Units subcutaneously daily at bedtime. BLOOD SUGAR DIAGNOSTIC STRIPS 50 S* 5 02/28/2018 Sig: Use to test blood sugar up to 4 times daily as directed. Medications Discontinued During This Encounter insulin degludec (TRESIBA) 100 unit/* 2 Pen 5 02/07/2018 02/28/2018 Route: SUBCUTANEOUS Sig: Inject 12 Units subcutaneously daily at bedtime. Disc: Reason for discontinue is not on file. blood sugar diagnostic (FREESTYLE TE* 50 S* 5 02/07/2018 02/28/2018 Sig: Use to test blood sugar up to 4 times daily as directed. Disc: Reason for discontinue is not on file. Follow-up and Disposition History Recorded Encounter Status:Closed by CEE (PHARMACIST)LOBO on 02/28/18 PROTIME Collected: 02/27/2018 Status: F Source: [facility] [employer] 3:45 PM SYSTEM ([place]) REPOSITORY TYPE CODE TESTS RESULT OUT OF REFERENCE UNITS RANGE LAB PT1 11.6-14.0 SEC PROTIME 12.1 LAB INR 0.88-1.12 INR 0.90 Result Comment: 2.0-3.0 THERAPEUTIC RANGE 2.5-3.5 PROSTHETIC VALVE RANGE Performed By: #### PT, PTT, BMPF, HEMOG #### Testing performed at [address] [address] PTT Collected: 02/27/2018 Status: F Source: [employer] 3:45 PM [place] ([place] REPOSITORY TYPE CODE TESTS RESULT OUT OF RANGE REFERENCE UNITS LAB PTT 23.2-34.5 SEC PTT 24.9 Result Comment: THERAPEUTIC RANGE (43.0-65.0) Performed By: #### PT, PTT, BMPF, HEMOG #### Testing performed at [address] [address] BMP FASTING Collected: 02/27/2018 Status: F [facility] [place] REPOSITORY TYPE CODE TESTS RESULT OUT OF REFERENCE UNITS RANGE LAB GLF 70-100 MG/DL High GLUCOSE 173 FASTING Result Comment: NORMAL <100 mg/dL PREDIABETES 101-126 mg/dL DIABETES 126 mg/dL or higher LAB BUN 7-20 MG/DL BLOOD UREA 9 NITROGEN LAB CRET 0.52-1.04 MG/DL CREATININE SERUM 0.7 LAB NA 136-145 MMOL/L SODIUM 137 LAB K 3.5-5.1 MMOL/L POTASSIUM 4.6 LAB CL 98-107 MMOL/L CHLORIDE 98 LAB CO2 22-30 MMOL/L CO2 27 LAB AGAP 8-16 MMOL/L ANION GAP 12 LAB CA 8.4-10.2 MG/DL CALCIUM 8.9 LAB GFR ml/min/1.73s q.m EST. GFR,Non >60 LAB GFRB ml/min/1.73s q.m EST. GFR, >60 Syrian LAB GFRCOM GFR Information Average GFR for 30-39 years old = 109. Result Comment: Chronic Kidney disease, GFR = <60. Kidney failure, GFR = <15. The GFR estimate is not adjusted for extreme body surface area or acute process, nor has it been validated for women or ethnic groups other than and . Performed By: #### PT, PTT, BMPF, HEMOG #### Testing performed at [address] [address] CBC(NO DIFF) Collected: 02/27/2018 Status: F Source: [employer] 3:45 PM [place] REPOS[place] TYPE CODE TESTS RESULT OUT OF REFERENCE UNITS RANGE LAB WBC 3.6-11.0 /cmm WBC COUNT 10.4 LAB RBC 4.0-5.4 /cmm RBC COUNT 4.56 LAB HGB 12.0-16.0 G/DL HEMOGLOBIN 12.7 LAB HCT 36.0-48.0 % HEMATOCRIT 38.2 LAB MCV 80.0-100.0 FL MCV 83.7 LAB MCH 26.0-35.0 PG MCH 27.9 LAB MCHC 27.0-37.0 G/DL MCHC 33.4 LAB RDW 11.5-14.5 % RDW 13.5 LAB PLTC 130.0-400.0 /cmm PLATELET COUNT 356 LAB MPV 7.4-11.0 FL MPV 7.6 Performed By: #### PT, PTT, BMPF, HEMOG #### Testing performed at [address] [address] Observed: 02/27/2018 Status: F Source: [facility] TYPE AND SCREEN 3:45 PM [place] CROSSMATCH CONVERTIBLE REPOSITORY WORKUP EXPIRES 03/09/2018 ABO/RH(D) A POSITIVE ANTIBODY SCREEN NEGATIVE ARM BAND NUMBER [id number] Performed By: #### TSCC #### Testing performed at [address] [address] URINE HCG QUAL Collected: 02/27/2018 Status: F Source: [facility] 3:30 PM [place] REPOS[place]ORY TYPE CODE TESTS RESULT OUT OF REFERENCE UNITS RANGE LAB UHCG NEGATIVE URINE HCG NEGATIVE QUAL Performed By: #### UHCGT #### Testing performed at [address] [address] VITAMIN B12 Collected: 02/22/2018 Status: F Source: [facility] 3:40 PM [facility] REPOSITORY TYPE CODE TESTS RESULT OUT OF REFERENCE UNITS RANGE LAB B12 232-1245 pg/mL Vitamin B12 440 Performed By: #### B12, BUN, CRET1, HFP, LYTE, STREV, TRYPT #### [place] [id number] [place] [address] #### INT5, STRSER, TRICH, TOXCAR #### [facility] [address] [place] [address] [phone] BUN Collected: 02/22/2018 Status: F Source: [facility] 3:40 PM [facility] REPOSITORY TYPE CODE TESTS RESULT OUT OF RANGE REFERENCE UNITS LAB BUN 7-21 mg/dL BUN 11 Performed By: #### B12, BUN, CRET1, HFP, LYTE, STREV, TRYPT #### [place] [id number] [place] [address] #### INT5, STRSER, TRICH, TOXCAR #### [facility] [address] [place] [address] [phone] CREATININE Collected: 02/22/2018 Status: F Source: [facility] 3:40 PM [facility] REPOSITORY TYPE CODE TESTS RESULT OUT OF REFERENCE UNITS RANGE LAB CRET 0.58-0.96 mg/dL Creatinine 0.65 LAB GFRAA eGFR- >60 Amer. LAB GFRNAA . eGFR-All Other Races >60 Result Comment: eGFR (Estimated GFR) Units of measure: mL/min/1.73 meters squared eGFR is derived from the reexpressed MDRD Study equation using the following parameters: serum creatinine, age, gender and race. The creatinine assay has been calibrated to be traceable to IDMS. An eGFR <60 mL/min/1.73m2 for >3 months is consistent with chronic kidney disease. Refer to KDOQI guidelines for clinical interpretation. In patients with unstable renal function, e.g. those with acute kidney injury, the eGFR may not accurately reflect actual GFR. Performed By: #### B12, BUN, CRET1, HFP, LYTE, STREV, TRYPT #### [facility] [place] [address] #### INT5, STRSER, TRICH, TOXCAR #### [facility] [address], [place] [id number] [phone] HEPATIC FUNCTN PANEL Collected: 02/22/2018 Status: F Source: [facility] 3:40 PM [facility] REPOSITORY TYPE CODE TESTS RESULT OUT OF REFERENCE UNITS RANGE LAB ALB 3.9-4.9 g/dL Albumin 4.4 LAB TBIL 0.2-1.3 mg/dL Bilirubin, Total 0.3 LAB CBIL <0.2 mg/dL Bilirubin,Conjuga <0.2 sadie LAB ALKP 34-123 U/L Alkaline Phosphatase 54 LAB AST 13-35 U/L AST High 39 LAB ALT 7-38 U/L ALT High 43 LAB TP 6.3-8.0 g/dL Protein, Total 7.2 Performed By: #### B12, BUN, CRET1, HFP, LYTE, STREV, TRYPT #### [facility] [address] [place] [address] #### INT5, STRSER, TRICH, TOXCAR #### [facility] [address] [place] [address] [phone] ELECTROLYTE PANEL Collected: 02/22/2018 Status: F Source: [facility] 3:40 PM [facility] REPOSITORY TYPE CODE TESTS RESULT OUT OF REFERENCE UNITS RANGE LAB NA 136-144 mmol/L Sodium 139 LAB K 3.7-5.1 mmol/L Potassium 4.3 LAB CL 97-105 mmol/L Chloride 100 LAB CO2 22-30 mmol/L CO2 24 LAB AGAP 9-18 mmol/L Anion Gap 15 Performed By: #### B12, BUN, CRET1, HFP, LYTE, STREV, TRYPT #### [facility] [address] [place] [phone] #### INT5, STRSER, TRICH, TOXCAR #### [facility] [address] [place] [address] [phone] INTERLEUKIN 5 Collected: 02/22/2018 Status: F Source: [facility] 3:40 [facility] REPOSITORY TYPE CODE TESTS RESULT OUT OF REFERENCE UNITS RANGE LAB INTER5 <=5 pg/mL Interleukin 5 <5 Result Comment: (NOTE) INTERPRETIVE INFORMATION: Cytokines Results are used to understand the pathophysiology of immune, infectious, or inflammatory disorders, or may be used for research purposes. Test developed and characteristics determined by [employer]. See Compliance Statement B: [employer] Performed by [facility], [address] [place] [address] [id number] [email or web address], Elia Garcia MD, Lab. Director Performed By: #### B12, BUN, CRET1, HFP, LYTE, STREV, TRYPT #### [facility] [address] [place] [phone] #### INT5, STRSER, TRICH, TOXCAR #### [facility] [address] [place] [phone] STAFF REV W CBCDIF Collected: 02/22/2018 Status: F Source: [facility] 3:40 PM [facility] REPOSITORY TYPE CODE TESTS RESULT OUT OF REFERENCE UNITS RANGE LAB WBC 3.70-11.00 k/uL WBC High 13.68 LAB RBC 3.90-5.20 m/uL RBC 4.63 LAB HGB 11.5-15.5 g/dL Hemoglobin 12.8 LAB HCT 36.0-46.0 % Hematocrit 40.1 LAB MCV 80.0-100.0 fL MCV 86.6 LAB MCH 26.0-34.0 pG MCH 27.6 LAB MCHC 30.5-36.0 g/dL MCHC 31.9 LAB RDWCV 11.5-15.0 % RDW-CV 13.0 LAB PLTCT 150-400 k/uL Platelet Count High 418 LAB MPV 9.0-12.7 fL MPV 9.6 LAB ANEUT % Neut% 54.0 LAB AANEUT 1.45-7.50 k/uL Abs Neut 7.39 LAB ALYMP % Lymph% 36.0 LAB AALYMP 1.00-4.00 k/uL Abs Lymph High 4.92 LAB AMONO % [place]% 6.0 LAB AAMONO <0.87 k/uL Abs [place] 0.82 LAB AEOS % Eosin% 3.0 LAB AAEOS <0.46 k/uL Abs Eosin 0.41 LAB ABASO % Baso% 1.0 LAB AABASO <0.11 k/uL Abs Baso High 0.14 LAB ABIMMG k/uL ANC(includeSEG+BAN 7.39 D) LAB POLIMI Polychromasia Slight LAB RBCMOR Red Cell Morph SEE COMMENT Result Comment: Unremarkable LAB PLTEST Platelet Platelet Estimate estimate increased LAB DTYP DTYPE Manual Diff LAB DIFCOM Diff SEE COMMENT Comments Result Comment: See Staff Review LAB SREVW Staff SEE Review COMMENT Result Comment: Lymphocytosis, favor reactive. Absolute Eosinophilia Thrombocytosis LAB SRPATH Pathologist Reviewed by Rober Mahoney [place] ([id number]) Performed By: #### B12, BUN, CRET1, HFP, LYTE, STREV, TRYPT #### [facility] [address] [place], [place] [address] #### INT5, STRSER, TRICH, TOXCAR #### [facility] [address] [place] [address] [phone] STRONGYLOIDE IGG SER Collected: 02/22/2018 Status: F Source: [facility] 3:40 [facility] REPOSITORY TYPE CODE TESTS RESULT OUT OF REFERENCE UNITS RANGE LAB STRGS <=0.9 IV Strongyloide IgG Ser 0.2 Result Comment: (NOTE) INTERPRETIVE INFORMATION: Strongyloides Ab, IgG by JOEY 0.9 IV or less....... Negative - No significant level of Strongyloides IgG antibody detected. 1.0 IV................Equivocal - The Strongyloides IgG antibody result is borderline and therefore inconclusive. Recommend retesting the patient in 2-4 weeks, if clinically indicated. 1.1 IV or greater ... Positive - IgG antibodies to Strongyloides detected, which may suggest current or past infection. False-positive results may occur with prior exposure to other helminth infections. Testing low-prevalence populations may also result in false-positive results. Performed by [facility], [address] [place] [id number] [email or web address], Elia Garcia MD, Lab. Director Performed By: #### B12, BUN, CRET1, HFP, LYTE, STREV, TRYPT #### [place] [phone] #### INT5, STRSER, TRICH, TOXCAR #### [employer] [address] [address] [phone] TRYPTASE Collected: 02/22/2018 Status: F Source: [place] 3:40 PM [facility] REPOSITORY TYPE CODE TESTS RESULT OUT OF REFERENCE UNITS RANGE LAB TRYP <11.0 ug/L Tryptase 4.4 Performed By: #### B12, BUN, CRET1, HFP, LYTE, STREV, TRYPT #### [place] [address] #### INT5, STRSER, TRICH, TOXCAR #### [employer] [address] [address] [phone] TRICHINELLA IGG AB Collected: 02/22/2018 Status: F Source: [place] 3:40 PM [facility] REPOSITORY TYPE CODE TESTS RESULT OUT OF REFERENCE UNITS RANGE LAB TRICH Trichinella IgG Ab Negative Result Comment: (NOTE) REFERENCE RANGE: NEGATIVE The Trichinella IgG JOEY employs an excretory- secretory antigen to reduce nonspecific reactivity; however, crossreactivity with other parasite antigens (e.g., strongyloides, filarial, malaria) may occur. The assay should be considered a screening test for Trichinella exposure; diagnosis of trichinosis requires a compatible patient history and supporting pathologic findings. Performed at [facility], [address] [place] [address], Tuan Lawrence MD, Director, [facility] [id number] Performed By: #### B12, BUN, CRET1, HFP, LYTE, STREV, TRYPT #### [place] [phone] #### INT5, STRSER, TRICH, TOXCAR #### [facility] [address] [place] [address] [phone] TOXOCARA ANTIBODIES Collected: 02/22/2018 Status: F Source: [facility] 3:40 PM [facility] REPOSITORY TYPE CODE TESTS RESULT OUT OF REFERENCE UNITS RANGE LAB [facility] Toxocara Antibodies Negative Result Comment: (NOTE) REFERENCE RANGE: NEGATIVE Results of this assay must be interpreted with caution, as broad variations in antibody response occur, and levels may remain elevated for years after infection. Further, antibodies induced by other parasitic infections, such as Strongyloides and Cysticercus, may cross-react in this assay. Although a negative result usually rules out infection with Toxocara spp., repeat testing may be clinically warranted in early infection. Performed at [facility], [address] [place] [address], Tuan Lawrence MD, Director, CLIA [id number] Performed By: #### B12, BUN, CRET1, HFP, LYTE, STREV, TRYPT #### [place] [address] #### INT5, STRSER, TRICH, TOXCAR #### [facility] [address] [place] [address] [phone] PROGRESS Observed: 02/11/2018 Status: COMPLETED Source: [facility] 3:47 PM [facility] REPOSITORY HNO ID: [id number] Author: Sebas Moseley Service: (none) Author Type: Physician Type: Progress Notes Filed: 03/10/2018 12:19 PM Note Text: [facility] [place] Consultation Note, 02/11/2018: Introduction: The patient is seen in consultation today for second opinion evaluation of asthma. This consultation is requested by the patient and her family. HPI: Prior diagnosis of asthma, persistent symptoms in spite of claims of consistent compliance with maintenance medications prescribed. Not short of breath at rest. Notes exertional dyspnea with activities of daily living. Variable wheezing. Coughs almost daily, productive non-purulent sputum, small amounts, no hemoptysis, not worse time of day, generally not productive and does not waken from sleep. Symptoms triggers include: weather extremes, respiratory infections, fumes/colognes, exertion. Has lived in current home 3 [place] in area. Basement is dry. Gas forced air heat. Central A/C. Filters monthly. New woodburner, vented outside through chimney. Bedroom soto is hardwood. 9 cats in home, with bedroom access, sleep with patient. 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 No work in manufacturing or processing of adhesives, paint, plastics, wood products. No commercial baking. No sustained Rx with Amiodarone, Nitrofurantoin, Methotrexate, cancer chemotherapy, external beam radiation therapy to chest. PAST MEDICAL HISTORY Diagnosis Date - Asthma Dr. Victorino Trevizo ([facility]) - Dystonia - Elevated LFTs - Fatty infiltration of liver 12/14/2017 - Fibromyalgia - Hyperlipidemia - Hypoglycemia unawareness associated with type 2 diabetes mellitus (HCC) - Hypothyroid - Migraine headache with aura Not always with aura; treated with Botox Injections by Dr. Ellis - Obesity - Obstructive sleep apnea treated with BiPAP Sleep Medicine Doctor--Dr. Lovett - Occipital neuralgia Dr. 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 Lyon - PAST SURGICAL HISTORY OF cyst removed from Rt eye lid - PAST SURGICAL HISTORY OF scar tissue removed for breast, left - PAST SURGICAL HISTORY OF cysts from the lower back x 2 - PAST SURGICAL HISTORY OF - PAST SURGICAL HISTORY OF Allergy injections once a week - RHINOPLASTY FOR NOSE DEFORM TIP SEPTUM, OS FAMILY HISTORY Problem Relation Age of Onset - Diabetes Mother patient states her mother is no longer diabetic - Thyroid Mother - Cataract Mother - Diabetes Maternal Grandmother - Stroke Maternal Grandmother - Heart Maternal Grandmother afib, tach - other (fibromyalgia) Other multiple female relatives - other (polycystic ovarian syndrome) Other multiple female relatives - other (autism spectrum) Other uncle, cousins, self Social History Marital status: Single Spouse name: Years of education: Number of children: Social History Main Topics Smoking status: Never Smoker Smokeless tobacco: Never Used Alcohol use: Yes 1.5 oz/week Glasses of Wine (5oz): 1 per week Drug use: No Sexual activity: Yes Partners with: Male control/protection: IUD Comment: mirena Immunization History Administered Date(s) Administered Influenza 12/03/2013 Influenza Seasonal Inj Age 3+ 12/03/2013 01/16/2018 Influenza Seasonal Inj Quadrivalent Age 3+ 01/02/2016 12/22/2016 Influenza Vaccine, Split-Non Spec 02/26/2010 02/08/2012 12/27/2012 11/04/2013 12/06/2015 12/05/2016 Pneumococcal, Unspecified Formulation 12/27/2012 Pneumococcal-13 Vac Conjugate 12/05/2016 01/24/2017 Pneumovax 12/10/2012 Tdap (Age 7+) 02/08/2012 MEDICATIONS and ALLERGIES: Reviewed, updated and reconciled with the patient today, as noted in the medication and allergy sections of the encounter. ROS: Reviewed with patient, confirmed as documented by MA. TO PHYSICAL EXAMINATION: BP 96/66 Pulse 89 Resp 15 Wt 270 lb (122.5kg) SpO2 98% Gen: No acute distress. Cooperative with examination. ENT: Sclerae clear. Nares clear. Oral hygeine and dentition good. Pharynx clear. Resp: No stridor, accessory respiratory muscle use, supra- sternal or intercostal retractions. A-P diameter normal. No crackles, wheezes. CV: Regular rythm. Heart tones normal. Radial pulses normal. Abd: Not distended. MSK: No kyphoscoliosis. Ext: Warm and well perfused. No clubbing, cyanosis, edema, sclerodactyly, Raynaud's. Skin: No rash, eczema, urticaria, telangiectasia. Neuro: Mental status normal. No tremor. DATA REVIEW: I have personally and independently reviewed prior documentation, testing. TO IMPRESSION/RECOMMEND: 1. Agree with diagnosis of severe persistent asthma. 2. Pneumococcal and annual Influenza vaccination are current. 3. Appropriate attention is being paid to environmental control, nasal disease, allergies, gastroesophageal reflux. 4. Agree with maintenance Rx with combination inhaled corticosteroid/long acting beta agonist bronchodilator, Dulera. - Use of Aerochamber should minimize taste, voice and thrush issues, and enhance delivery of dose into airways. - If addition of chamber NOT associated with better symptom control and Pulmonary Function Testing, consider higher Dulera dose. - Continue Singulair 10 mg daily. - Continue Levalbuterol as needed for rescue relief of shortness of breath or wheezing, up to [address] times [address] 5[address] Review [address] Lyon's allergy test results and immunotherapy mix. 6. I see no pulmonary contraindication to the bariatric surgery, or the use of general anesthesia; but, maintenance asthma Rx must continue up to time of surgery, and be resumed as soon as possible after surgery. 7. Re-assess symptoms and lung function late March or early April 2018. - Schedulers will call. Sebas Moseley MD, [facility] [place] [facility] [address] [place], [place] [id number] P: [phone] F: [phone] [email or web address] Observed: 02/11/2018 Status: COMPLETED Source: [place] 3:30 PM [facility] REPOSITORY Office Visit (PULMWS) MARIANA EARLY ([id number]) 1980 F Date Time Provider Department 02/11/18 3:30 PM SEBAS MOSELEY [facility] During your visit today, we recorded the following information about you: Pulse Respiration Blood pressure Weight 89/minute 15/minute 96/66 122.5 kg Paula Nugent [employer] EMISSIONS TECHNICIAN 02/11/2018 3:54 PM Attested Attestation signed by Sebas Moseley at 02/11/2018 4:11 PM Sebas Moseley MD, [facility] ROS: General: Generally feels well. Appetite fair. Eyes, Ears, nose, throat: notes post nasal drip. notes rhinorrhea. denies purulent nasal discharge. Recent balloon sinoplasty- [facility] denies epistaxis. notes hoarseness. Vision stable. Cardiac: denies angina, denies edema, denies orthopnea. GI: denies heartburn. denies dysphagia. denies diarrhea. Uro/UTILIZATION SPECIALIST: denies dysuria. denies hesitancy. denies nocturia. Menses: IUD Musculoskeletal: denies pain, stiffness in neck at times Neuro: denies headache, denies focal weakness. denies tremor. Skin: denies rash. Otherwise negative. Sebas Moseley MD 03/10/2018 12:19 PM Signed [facility] Consultation Note, 02/11/2018: Introduction: The patient is seen in consultation today for second opinion evaluation of asthma. This consultation is requested by the patient and her family. HPI: Prior diagnosis of asthma, persistent symptoms in spite of claims of consistent compliance with maintenance medications prescribed. Not short of breath at rest. Notes exertional dyspnea with activities of daily living. Variable wheezing. Coughs almost daily, productive non-purulent sputum, small amounts, no hemoptysis, not worse time of day, generally not productive and does not waken from sleep. Symptoms triggers include: weather extremes, respiratory infections, fumes/colognes, exertion. Has lived in current home 3 years, [place], active [place] in area. Basement is dry. Gas forced air heat. Central A/C. Filters monthly. New woodburner, vented outside through chimney. Bedroom soto is hardwood. 9 cats in home, with bedroom access, sleep with patient. 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 No work in manufacturing or processing of adhesives, paint, plastics, wood products. No commercial baking. No sustained Rx with Amiodarone, Nitrofurantoin, Methotrexate, cancer chemotherapy, external beam radiation therapy to chest. PAST MEDICAL HISTORY Diagnosis Date - Asthma Dr. Victorino Trevizo ([facility]) - Dystonia - Elevated LFTs - Fatty infiltration of liver 12/14/2017 - Fibromyalgia - Hyperlipidemia - Hypoglycemia unawareness associated with type 2 diabetes mellitus (HCC) - Hypothyroid - Migraine headache with aura Not always with aura; treated with Botox Injections by Dr. Ellis - Obesity - Obstructive sleep apnea treated with BiPAP Sleep Medicine Doctor--Dr. Lovett - Occipital neuralgia Dr. 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 Lyon - PAST SURGICAL HISTORY OF cyst removed from Rt eye lid - PAST SURGICAL HISTORY OF scar tissue removed for breast, left - PAST SURGICAL HISTORY OF cysts from the lower back x 2 - PAST SURGICAL HISTORY OF - PAST SURGICAL HISTORY OF Allergy injections once a week - RHINOPLASTY FOR NOSE DEFORM TIP SEPTUM, OS FAMILY HISTORY Problem Relation Age of Onset - Diabetes Mother patient states her mother is no longer diabetic - Thyroid Mother - Cataract Mother - Diabetes Maternal Grandmother - Stroke Maternal Grandmother - Heart Maternal Grandmother afib, tach - other (fibromyalgia) Other multiple female relatives - other (polycystic ovarian syndrome) Other multiple female relatives - other (autism spectrum) Other uncle, cousins, self Social History Marital status: Single Spouse name: Years of education: Number of children: Social History Main Topics Smoking status: Never Smoker Smokeless tobacco: Never Used Alcohol use: Yes 1.5 oz/week Glasses of Wine (5oz): 1 per week Drug use: No Sexual activity: Yes Partners with: Male control/protection: IUD Comment: mirena Immunization History Administered Date(s) Administered Influenza 12/03/2013 Influenza Seasonal Inj Age 3+ 12/03/2013 01/16/2018 Influenza Seasonal Inj Quadrivalent Age 3+ 01/02/2016 12/22/2016 Influenza Vaccine, Split-Non Spec 02/26/2010 02/08/2012 12/27/2012 11/04/2013 12/06/2015 12/05/2016 Pneumococcal, Unspecified Formulation 12/27/2012 Pneumococcal-13 Vac Conjugate 12/05/2016 01/24/2017 Pneumovax 12/10/2012 Tdap (Age 7+) 02/08/2012 MEDICATIONS and ALLERGIES: Reviewed, updated and reconciled with the patient today, as noted in the medication and allergy sections of the encounter. ROS: Reviewed with patient, confirmed as documented by MA. TO PHYSICAL EXAMINATION: BP 96/66 Pulse 89 Resp 15 Wt 270 lb (122.5kg) SpO2 98% Gen: No acute distress. Cooperative with examination. ENT: Sclerae clear. Nares clear. Oral hygeine and dentition good. Pharynx clear. Resp: No stridor, accessory respiratory muscle use, supra- sternal or intercostal retractions. A-P diameter normal. No crackles, wheezes. CV: Regular rythm. Heart tones normal. Radial pulses normal. Abd: Not distended. MSK: No kyphoscoliosis. Ext: Warm and well perfused. No clubbing, cyanosis, edema, sclerodactyly, Raynaud's. Skin: No rash, eczema, urticaria, telangiectasia. Neuro: Mental status normal. No tremor. DATA REVIEW: I have personally and independently reviewed prior documentation, testing. TO IMPRESSION/RECOMMEND: 1. Agree with diagnosis of severe persistent asthma. 2. Pneumococcal and annual Influenza vaccination are current. 3. Appropriate attention is being paid to environmental control, nasal disease, allergies, gastroesophageal reflux. 4. Agree with maintenance Rx with combination inhaled corticosteroid/long acting beta agonist bronchodilator, Dulera. - Use of Aerochamber should minimize taste, voice and thrush issues, and enhance delivery of dose into airways. - If addition of chamber NOT associated with better symptom control and Pulmonary Function Testing, consider higher Dulera dose. - Continue Singulair 10 mg daily. - Continue Levalbuterol as needed for rescue relief of shortness of breath or wheezing, up to [address] 5[address] Review [address] Lyon's allergy test results and immunotherapy mix. 6. I see no pulmonary contraindication to the bariatric surgery, or the use of general anesthesia; but, maintenance asthma Rx must continue up to time of surgery, and be resumed as soon as possible after surgery. 7. Re-assess symptoms and lung function late March or April 2018. - Schedulers will call. Sebas Moseley MD, [facility] [place] [facility] [address] [address] P: [phone] F: [phone] [email or web address] Sebas Moseley MD 02/11/2018 4:45 PM Signed 1. Agree with diagnosis of severe persistent asthma. 2. Pneumococcal and annual Influenza vaccination are current. 3. Appropriate attention is being paid to environmental control, nasal disease, allergies, gastroesophageal reflux. 4. Agree with maintenance Rx with combination inhaled corticosteroid/long acting beta agonist bronchodilator, Dulera. - Use of Aerochamber should minimize taste, voice and thrush issues, and enhance delivery of dose into airways. - If addition of chamber NOT associated with better symptom control and Pulmonary Function Testing, consider higher Dulera dose. - Continue Singulair 10 mg daily. - Continue Levalbuterol as needed for rescue relief of shortness of breath or wheezing, up to 3 times daily. 5. I'd like to review Dr. Lyon's allergy test results and immunotherapy mix. 6. I see no pulmonary contraindication to the bariatric surgery, or the use of general anesthesia; but, maintenance asthma Rx must continue up to time of surgery, and be resumed as soon as possible after surgery. 7. Re-assess symptoms and lung function late March or April 2018. - Schedulers will call. Sebas Moseley MD, [facility] [address] [place] [address] P: [phone] F: [phone] [email or web address] Referring Provider: JESSICA CHAMBERS [[id number]] Allergies As of Date: 02/11/2018 Noted Allergy Reaction CIPROFLOXACIN 04/18/2011 14 - Other: See Comments Comments: Mother highly allergic to medication IMITREX (SUMATRIPTAN SUCCINATE) 04/18/2011 8 - GI Upset 11 - Vomiting NICKEL 05/14/2015 2 - Rash 4 - Hives 7 - Swelling ADHESIVE 04/18/2011 2 - Rash 14 - Other: See Comments Comments: Pulling of skin ASPIRIN 04/18/2011 8 - GI Upset CORTICOSTEROIDS (GLUCOCORTICOIDS) 08/01/2014 14 - Other: See Comments Comments: Increase in blood sugars CYMBALTA (DULOXETINE) 11/28/2013 5 - Intolerance EFFEXOR (VENLAFAXINE) 08/23/2015 14 - Other: See Comments LIPITOR (ATORVASTATIN CALCIUM) 08/26/2014 4 - Hives NARCOTICS (OPIOIDS - MORPHINE JERRICA*11/02/2011 14 - Other: See Comments Comments: Mood changes/depression worsen/if taking must be monitored closley NIFEDIPINE 08/27/2013 14 - Other: See Comments Comments: Chest pain heart racing and skin flushing SULFA (SULFONAMIDE ANTIBIOTICS) 04/18/2011 14 - Other: See Comments Comments: headaches TOMATOES 01/26/2017 8 - GI Upset TOPAMAX (TOPIRAMATE) 11/28/2013 5 - Intolerance ULTRAM (TRAMADOL) 08/01/2014 12 - Shortness of Breath WHEAT, WHEAT GERM 01/26/2017 2 - Rash Date Reviewed: 02/11/2018 Reviewed by: Sebas Moseley - Fully Assessed Reason for Visit: Consult [502] Cmt: Asthma Reason For Visit History Recorded Visit Diagnosis:Severe persistent asthma without complication [J45.50] Prescriptions as of 02/11/2018 Sig: PEN NEEDLE, DIABETIC 32 GAUGE* Use to inject insulin once da* ALCOHOL SWABS Use to clean injection area a* MIDRIN ORAL Take by mouth. Taking as need* FIORICET ORAL Take by mouth. Taking as need* X BLOOD SUGAR DIAGNOSTIC STRIPS Use to test blood sugar up to* X INSULIN DEGLUDEC (U-100) 100 * Inject 12 Units subcutaneousl* FEXOFENADINE 180 MG TABLET take 1 tablet by ORAL route * TRIAMCINOLONE ACETONIDE 55 MC* Use 2 Sprays in the nose once* MONTELUKAST 10 MG TABLET Take 1 tablet by mouth daily * MOMETASONE-FORMOTEROL HFA 100* Inhale 2 Puffs as instructed * LEVALBUTEROL HFA 45 MCG/ACTUA* Inhale 2 Puffs as instructed * NEBULIZER AND COMPRESSOR Use as directed. Dx: moderat* METAXALONE 800 MG TABLET take 1 tablet by mouth three * TRIAMCINOLONE ACETONIDE 0.1 %* Apply 1 application to affect* CICLOPIROX 0.77 % TOPICAL CRE* Apply 1 application to affect* GLIMEPIRIDE 4 MG TABLET TAKE 1 TABLET BY MOUTH TWICE * DULAGLUTIDE 1.5 MG/0.5 ML SUB* Inject 1.5 mL subcutaneously * FLUVOXAMINE 25 MG TABLET Take 1 tablet by mouth daily * PANTOPRAZOLE 40 MG TABLET,DEL* Take 1 tablet by mouth daily * ENALAPRIL MALEATE 5 MG TABLET Take 1 tablet by mouth once d* METFORMIN ER 500 MG TABLET,EX* Take 2 tablets by mouth twice* LEVALBUTEROL 0.63 MG/3 ML LUIS* Use 3 mL via nebulizer every * LORAZEPAM 1 MG TABLET Take 1 tablet by mouth twice * CRESTOR 5 MG TABLET Take 1 tablet by mouth once d* ONDANSETRON 4 MG DISINTEGRATI* Take 1 tablet by mouth every * LEVONORGESTREL 20 MCG/24 HR (* Inserted in office LANCETS Test blood sugar(s) 2 times d* CHOLECALCIFEROL (VITAMIN D3) * Take 1 tablet by mouth once d* * BLOOD-GLUCOSE METER KIT Test sugars 2 time daily and * OLOPATADINE 0.1 % EYE DROPS Use 1 Drop in both eyes twice* VARICELLA VIRUS VACCINE LIVE * Give 1 dose then repeat dose * Patient not taking: Reported on 02/01/2018 Problem List As Of Date 02/11/2018 Noted Resolved Diabetes mellitus type 2, uncontrolled (HCC) [E*INVALID FOR*09/03/2015 Hyperlipidemia [E78.5] INVALID FOR* Obesity, Class III, BMI 40-49.9 (morbid obesity*INVALID FOR*09/03/2015 Hypothyroid [E03.9] INVALID FOR*09/03/2015 Obstructive sleep apnea [G47.33] INVALID FOR*09/03/2015 Asthma, moderate persistent [J45.40] INVALID FOR*09/03/2015 Albuminuria [R80.9] INVALID FOR*09/03/2015 Vitamin D deficiency [E55.9] INVALID FOR* Faintness [R55] INVALID FOR*09/03/2015 Type 2 diabetes, controlled, with neuropathy (H*INVALID FOR*02/05/2015 PCOS (polycystic ovarian syndrome) [E28.2] INVALID FOR* More... Migraine headache without aura [G43.009] INVALID FOR*09/03/2015 More... Restless legs syndrome (RLS) [G25.81] INVALID FOR*09/03/2015 More... Right ankle instability [M25.371] INVALID FOR*09/03/2015 Left ankle instability [M25.372] INVALID FOR*09/03/2015 Type 2 diabetes mellitus with hyperglycemia (HC* More... Type 2 diabetes mellitus with neurological john* More... Type 2 diabetes mellitus with polyneuropathy (H* Hypoglycemia unawareness associated with type 2* Obesity [E66.9] 09/05/2016 Hypothyroid [E03.9] More... Ovarian cyst, left [N83.202] INVALID FOR* Multiple thyroid nodules [E04.2] INVALID FOR* Bilateral low back pain with sciatica [M54.40] INVALID FOR* Asymptomatic PVCs [I49.3] INVALID FOR* Morbid obesity with BMI of 40.0-44.9, adult (HC*INVALID FOR*05/14/2017 Statin intolerance [Z78.9] INVALID FOR* More... Hypogammaglobulinemia (HCC) [D80.1] INVALID FOR* Recurrent infections [B99.9] INVALID FOR* Allergic rhinitis [J30.9] INVALID FOR* Asthma, well controlled [J45.909] INVALID FOR* MEGHAN on CPAP [G47.33, Z99.89] INVALID FOR* Obesity (BMI 30-39.9) [E66.9] INVALID FOR* Fatty infiltration of liver [K76.0] INVALID FOR* Asthma [J45.909] More... Notes for Staff Discussed this visit Other instructions from your clinician: 1. Agree with diagnosis of severe persistent asthma. 2. Pneumococcal and annual Influenza vaccination are current. 3. Appropriate attention is being paid to environmental control, nasal disease, allergies, gastroesophageal reflux. 4. Agree with maintenance Rx with combination inhaled corticosteroid/long acting beta agonist bronchodilator, Dulera. - Use of Aerochamber should minimize taste, voice and thrush issues, and enhance delivery of dose into airways. - If addition of chamber NOT associated with better symptom control and Pulmonary Function Testing, consider higher Dulera dose. - Continue Singulair 10 mg daily. - Continue Levalbuterol as needed for rescue relief of shortness of breath or wheezing, up to 3 times daily. 5. I'd like to review Dr. Lyon's allergy test results and immunotherapy mix. 6. I see no pulmonary contraindication to the bariatric surgery, or the use of general anesthesia; but, maintenance asthma Rx must continue up to time of surgery, and be resumed as soon as possible after surgery. 7. Re-assess symptoms and lung function late March or early April 2018. - Schedulers will call. Sebas Moseley MD, [facility] [address] [place] [id number] P: [phone] F: [phone] Visit Notes: >> Paula Raffi PETERS Mon Feb 11, 2018 3:38 PM Status: Attested ROS: General: Generally feels well. Appetite fair. Eyes, Ears, nose, throat: notes post nasal drip. notes rhinorrhea. denies purulent nasal discharge. Recent balloon sinoplasty- [facility] denies epistaxis. notes hoarseness. Vision stable. Cardiac: denies angina, denies edema, denies orthopnea. GI: denies heartburn. denies dysphagia. denies diarrhea. Uro/UTILIZATION SPECIALIST: denies dysuria. denies hesitancy. denies nocturia. Menses: IUD Musculoskeletal: denies pain, stiffness in neck at times Neuro: denies headache, denies focal weakness. denies tremor. Skin: denies rash. Otherwise negative. Medications Discontinued During This Encounter amoxicillin-clavulanic acid (AUGMENT* 02/01/2018 02/11/2018 Class: Historical Med Route: ORAL Sig: Take 1 tablet by mouth twice daily. Disc: Course of therapy completed CALCIUM CARBONATE/VITAMIN D3 (VITAMI* 02/11/2018 Class: Historical Med Route: ORAL Sig: Take by mouth. Disc: Duplicate Entry Magnesium 250 mg tab 08/18/2017 02/11/2018 Class: Med Update Sig: On Hold Patient not taking: Reported on 02/01/2018 Disc: Course of therapy completed Follow Up: Discussed this visit Follow-up and Disposition History Recorded Encounter Status:Closed by SEBAS MOSELEY MD on 03/10/18 PROGRESS Observed: 02/07/2018 Status: COMPLETED Source: [place] 9:00 AM [facility] REPOSITORY HNO ID: [id number] Author: Lobo Rojo (Pharmacist) Service: (none) Author Type: Pharmacist Type: Progress Notes Filed: 02/07/2018 12:12 PM Note Text: Patient consents to pharmacy collaborative practice agreement. REASON FOR CONSULT: DM GOALS: A1c < 8% CONSULTING PROVIDER: Dr. Blue Date of Consult: 02/01/18 Mariana Early is a 37 year old female was last seen by PCP, Dr. Stoney Blue MD on 02/01. Subjective: Patient is presenting today for initial pharmacotherapy management appointment for diabetes. Per PCP, patient needs A1c to be <8% by March 06 for bariatric surgery. INTERIM HISTORY: Scheduled for bariatric surgery on March 06 She states that she is required to maintain an 800 calorie starting after [place] Patient states that doctor is willing to do surgery if A1c is <8.5% (ideally <8%) Reports having Freestyle Haroldo but does not have reader with her Claims that it is not accurate Reports patient has been on insulin in the past Used a vial and syringe, doesn't remember the name Says it didn't lower blood sugar well Says she has PCOS and is insulin resistant Hasn't used insulin in years Patient had no insurance for 5 years after college when kicked off of parent's insurance Patient thinks this really did her in with her diabetes control Had a lot of stress this year - thought was going to lose job She thinks stress attributed to elevated A1c Past DM medications: Insulin (insulin glargine?) - ineffective Liraglutide - caused bruising in abdomen Pioglitazone - caused bladder infections and was on constant antibiotics Canagliflozin and empagliflozin - bladder infections Current DM Medications: Metformin ER 500mg tabs - 2 tabs BID Glimepiride 4mg BID Dulaglutide 1.5mg weekly (injects in bicep of arm) on Fridays or Saturdays Current HTN Medications: Enalapril 5mg daily Preventative Medications: ? On YOLA/ARB: Yes ? On Statin: Yes ? On ASA: No ROS: ? Patient denies CP, SOB, SUE, blurred vision, dizziness or lightheadedness ? Patient denies symptoms of hypoglycemia (sweating, anxiety, palpitations, hunger, and tremor) ? Patient denies symptoms of hyperglycemia (polyuria, polydipsia, polyphagia) ? Patient denies potential medication adverse effects DIET/EXERCISE/SOCIAL Hx: ? Eats <1600 calories/day ? Tries to limit to 30g carbs/day MEDICATIONS: ? Pill bottles are not present. ? Adherence: reports missed doses of antibiotic. Maybe misses 3 doses of meds/month in the evening. ? [facility] ? Rx coverage: [employer] ? Affordability: No issues ? Diabetes supplies: [employer] ? Organization System: none ACTIVE PROBLEM LIST Hyperlipidemia Vitamin D Deficiency Pcos (Polycystic Ovarian Syndrome) Type 2 Diabetes Mellitus With Hyperglycemia (Hcc) Type 2 Diabetes Mellitus With Neurological Manifestation (Hcc) Type 2 Diabetes Mellitus With Polyneuropathy (Hcc) Hypoglycemia Unawareness Associated With Type 2 Diabetes Mellitus (Hcc) Hypothyroid Ovarian Cyst, Left Multiple Thyroid Nodules Bilateral Low Back Pain With Sciatica Asymptomatic Pvcs Statin Intolerance Hypogammaglobulinemia (Hcc) Recurrent Infections Allergic Rhinitis Asthma, Well Controlled Meghan On Cpap Obesity (Bmi 30-39.9) Fatty Infiltration of Liver PAST MEDICAL HISTORY Diagnosis Date - Asthma Dr. Victorino Trevizo ([facility]) - Dystonia - Elevated LFTs - Fatty infiltration of liver 12/14/2017 - Fibromyalgia - Hyperlipidemia - Hypoglycemia unawareness associated with type 2 diabetes mellitus (HCC) - Hypothyroid - Migraine headache with aura Not always with aura; treated with Botox Injections by Dr. Ellis - Obesity - Obstructive sleep apnea treated with BiPAP Sleep Medicine Doctor--Dr. Lovett - Occipital neuralgia Dr. Lovett - PCOS (polycystic ovarian syndrome) - POTS (postural orthostatic tachycardia syndrome) - Type 2 diabetes mellitus with hyperglycemia (HCC) - Type 2 diabetes mellitus with neurological manifestation (HCC) associated with diabetes - Vitamin D deficiency ALLERGIES Allergen Reactions - Ciprofloxacin Other: See Comments Mother highly allergic to medication - Imitrex [Sumatripta* GI Upset, Vomiting - Nickel Rash, Hives, Swelling - Adhesive Rash, Other: See Comments Pulling of skin - Aspirin GI Upset - Corticosteroids (Gl* Other: See Comments Increase in blood sugars - Cymbalta [Duloxetin* Intolerance - Effexor [Venlafaxin* Other: See Comments - Lipitor [Atorvastat* Hives - Narcotics [Opioids * Other: See Comments Mood changes/depression worsen/if taking must be monitored closley - Nifedipine Other: See Comments Chest pain heart racing and skin flushing - Sulfa (Sulfonamide * Other: See Comments headaches - Tomatoes GI Upset - Topamax [Topiramate] Intolerance - Ultram [Tramadol] Shortness of Breath - Wheat, Wheat Germ Rash Medication List Medication Directions Comments Action/Plan Discontinued: 02/01/2018 5:02 PM amoxicillin-clavulanic acid (AUGMENTIN) 875-125 mg per tablet Take 1 tablet by mouth twice daily. taking blood sugar diagnostic (FREESTYLE LITE STRIPS) test strip Test blood sugar(s) 2 times daily. Dx: DM2 250.00. Insulin: No Blood-Glucose Meter (FREESTYLE LITE METER) monitoring kit Test sugars 2 time daily and when needed. CALCIUM CARBONATE/VITAMIN D3 (VITAMIN D-3 ORAL) Take by mouth. Not taking at the moment Cholecalciferol, Vitamin D3, 5,000 unit tab Take 1 tablet by mouth once daily. taking ciclopirox (LOPROX) 0.77 % cream Apply 1 application to affected area twice daily. CRESTOR 5 mg tablet Take 1 tablet by mouth once daily. taking Discontinued: 02/01/2018 5:02 PM dulaglutide (TRULICITY) 1.5 mg/0.5 mL pnij Inject 1.5 mL subcutaneously once each week. taking enalapril (VASOTEC) 5 mg tablet Take 1 tablet by mouth once daily. Taking; denies for BP, mainly for kidney health fexofenadine (ROLA) 180 mg tablet take 1 tablet by ORAL route every evening as needed Taking PRN Discontinued: 02/01/2018 5:01 PM fluvoxaMINE Maleate (LUVOX) 25 mg tablet Take 1 tablet by mouth daily at bedtime. Taking nightly for depression/anxiety/OCD glimepiride (AMARYL) 4 mg tablet TAKE 1 TABLET BY MOUTH TWICE DAILY. taking Lancets (FREESTYLE LANCETS) lancets Test blood sugar(s) 2 times daily. Dx: DM2 250.00. Insulin: No levalbuterol (XOPENEX) 0.63 mg/3 mL nebulizer solution Use 3 mL via nebulizer every 4 hours as needed for Wheezing/Shortness of Breath. Taking PRN; patient working on getting new nebulizer Discontinued: 02/01/2018 5:04 PM levalbuterol tartrate HFA 45 mcg/actuation inhaler Inhale 2 Puffs as instructed every 4 hours as needed. Use with spacer Taking PRN levonorgestrel (MIRENA) 20 mcg/24 hr (5 years) IUD Inserted in office Using; patient not sure if it is causing cysts; occasionally has pain - has discussed with carpenter apprentice LORazepam (ATIVAN) 1 mg tablet Take 1 tablet by mouth twice daily as needed for Anxiety. ([facility] provider) Taking PRN Magnesium 250 mg tab On Hold Patient not taking: Reported on 02/01/2018 On hold metaxalone (SKELAXIN) 800 mg tablet take 1 tablet by mouth three times a day if needed for pain Taking PRN; reports it helps a lot; denies being groggy when waking up metFORMIN ER (GLUCOPHAGE XR) 500 mg 24 hr tablet Take 2 tablets by mouth twice daily. taking mometasone-formoterol (DULERA) 100-5 mcg/actuation inhaler Inhale 2 Puffs as instructed twice daily. Use with spacer. Rinse mouth out after use. Taking; rinses mouth with water montelukast (SINGULAIR) 10 mg tablet Take 1 tablet by mouth daily at bedtime. taking Nebulizer and Compressor For Neb jose luis Use as directed. Dx: moderate persistent asthma J45.40, disp:lifetime supplies Discontinued: 02/01/2018 5:11 PM olopatadine (PATANOL) 0.1 % ophthalmic solution Use 1 Drop in both eyes twice daily. Has already tired all the other meds in this class (side effects or lack of efficacy) ondansetron orally disintegrating (ZOFRAN ODT) 4 mg disintegrating tablet Take 1 tablet by mouth every 8 hours as needed for Nausea/Vomiting. Taking PRN; taking daily recently pantoprazole DR (PROTONIX) 40 mg tablet Take 1 tablet by mouth daily before breakfast. Take on empty stomach, 1/2 hr before meal. TAKING NEEDED NOW taking triamcinolone acetonide (KENALOG) 0.1 % cream Apply 1 application to affected area three times daily. Apply sparingly to area for rash/itching. triamcinolone acetonide (NASACORT) 55 mcg nasal inhaler Use 2 Sprays in the nose once daily. varicella virus vaccine, PF, (VARIVAX) 1,350 unit/0.5 mL injection Give 1 dose then repeat dose in 4 to 8 weeks later Patient not taking: Reported on 02/01/2018 Rx meds not listed in EPIC: generic Midrin for migraines and Fioricet for migraines (took 1 pill last week for migraines last week) OTCs: guaifenecin PRN for congestion Herbals: none GLYCEMIC CONTROL: ? Glucometer present at visit: No ? SMBG?s: FBG today was 215 - says FBGs usually 200-230; lowest BG was 130 around midday (had skipped meals); highest BG recently was 320 ? Hypoglycemia: none Objective: VITALS: There were no vitals taken for this visit. Last 3 Encounter BP Readings: Date: BP: 02/01/2018 112/72 01/22/2018 115/74 01/20/2018 118/80 Wt: 123.4 kg (272 lb) BMI: 40.29 kg/(m2) LABS Lab Results Component Value Date HBA1C 9.1 01/22/2018 HBA1C 7.5 03/20/2017 HBA1C 7.6 08/07/2016 CMP: Glucose 155 01/22/2018 BUN 9 01/22/2018 Creatinine, Whole Blood (iSTAT) 0.54 01/22/2018 Sodium 139 01/22/2018 Potassium 4.7 01/22/2018 Chloride 103 01/22/2018 CO2 19 01/22/2018 Protein, Total 7.4 03/20/2017 Albumin 4.3 03/20/2017 Calcium 9.5 01/22/2018 Alkaline Phosphatase 46 03/20/2017 Bilirubin, Total 0.3 03/20/2017 AST 32 03/20/2017 ALT 51 03/20/2017 eGFR >60 (per BMP on 01/22/18) Last Lipid Panel Lab Results Component Value Date CHOL 239 01/22/2018 Lab Results Component Value Date HDL 42 01/22/2018 Lab Results Component Value Date LDL 161 01/22/2018 Lab Results Component Value Date TG 179 01/22/2018 Albumin/Creat Ratio (mg/g) Date Value 03/20/2017 45 (H) PHARMACOTHERAPY ASSESSMENT/PLAN: 1. Type 2 diabetes mellitus with hyperglycemia, without long- term current use of insulin ([facility]) - ICD9: 250.00, 790.29, ICD10: E11.65 A1c goal <8%; uncontrolled (last A1c 9.1%); patient highly motivated to reduce A1c to <8% by March 06, 2018 so she can have bariatric surgery; reported FBGs all elevated >200; PharmD explained to patient that A1c is a measurement of blood sugar control over 3 months and it will be very difficult to reduce A1c from 9.1 to <8% in 1 month; patient already maintaining strict diet for bariatric surgery prep so will need to lower BG through medication changes; patient has previously tried other oral medications and not tolerated them (pioglitazone, SGLT2 inhibitors); patient reports history of insulin resistance but is unsure of what insulin she was on in the past; will start insulin degludec today since patient certainly has not tried it before and insulin will be the fastest way to reduce blood sugars; patient does not want to be on insulin long-term but is open to starting it to help control BG for surgery; counseled patient on appropriate dosing, administration, injection technique, and storage of insulin; counseled patient that insulin increases risk of hypoglycemia - reviewed identification/mngt of low blood sugars and provided educational handout; PharmD identified that patient has been inappropriately injecting dulaglutide into bicep - counseled to inject in subcutaneous area; renal fxn and LFTs appropriate for continued use - INITIATE insulin degludec 12 units daily (~0.1 units/kg/day) x 5-7 days, then self-titrate insulin up by 1 unit every 3 days that FBGs >150 - CONTINUE metformin ER 1000mg BID and dulaglutide 1.5mg weekly - Requested that patient check FBG daily and anytime she feels funny - Ordered test strips at patient request Patient does not have f/u appt scheduled with PCP - will f/u with PCP after surgery in February. Patient to have phone f/u with PharmD on 02/28/18. Patient verbalized understanding of instructions. Lobo Rojo PharmD, [facility] Primary Care Clinical Pharmacist [facility] CNOV Observed: 02/07/2018 Status: COMPLETED Source: [place] 9:00 AM [facility] REPOSITORY Office Visit (PHMEWO) SHARATHMARIANA ([id number]) 1980 F Date Time Provider Department 02/07/18 9:00 AM CEE (PHARMACIST)LOBO During your visit today, we recorded the following information about you: ROM MARQUEZ 02/07/2018 12:12 PM Signed Patient consents to pharmacy collaborative practice agreement. REASON FOR CONSULT: DM GOALS: A1c < 8% CONSULTING PROVIDER: Dr. Blue Date of Consult: 02/01/18 Mariana Sharath is a 37 year old female was last seen by PCP, Dr. Stoney Blue MD on 02/01. Subjective: Patient is presenting today for initial pharmacotherapy management appointment for diabetes. Per PCP, patient needs A1c to be <8% by March 06 for bariatric surgery. INTERIM HISTORY: Scheduled for bariatric surgery on March 06 She states that she is required to maintain an 800 calorie starting after [place] Patient states that doctor is willing to do surgery if A1c is <8.5% (ideally <8%) Reports having Freestyle Haroldo but does not have reader with her Claims that it is not accurate Reports patient has been on insulin in the past Used a vial and syringe, doesn't remember the name Says it didn't lower blood sugar well Says she has PCOS and is insulin resistant Hasn't used insulin in years Patient had no insurance for 5 years after college when kicked off of parent's insurance Patient thinks this really did her in with her diabetes control Had a lot of stress this year - thought was going to lose job She thinks stress attributed to elevated A1c Past DM medications: Insulin (insulin glargine?) - ineffective Liraglutide - caused bruising in abdomen Pioglitazone - caused bladder infections and was on constant antibiotics Canagliflozin and empagliflozin - bladder infections Current DM Medications: Metformin ER 500mg tabs - 2 tabs BID Glimepiride 4mg BID Dulaglutide 1.5mg weekly (injects in bicep of arm) on Fridays or Saturdays Current HTN Medications: Enalapril 5mg daily Preventative Medications: ? On YOLA/ARB: Yes ? On Statin: Yes ? On ASA: No ROS: ? Patient denies CP, SOB, SUE, blurred vision, dizziness or lightheadedness ? Patient denies symptoms of hypoglycemia (sweating, anxiety, palpitations, hunger, and tremor) ? Patient denies symptoms of hyperglycemia (polyuria, polydipsia, polyphagia) ? Patient denies potential medication adverse effects DIET/EXERCISE/SOCIAL Hx: ? Eats <1600 calories/day ? Tries to limit to 30g carbs/day MEDICATIONS: ? Pill bottles are not present. ? Adherence: reports missed doses of antibiotic. Maybe misses 3 doses of meds/month in the evening. ? Pharmacy: [facility] ([place]) ? Rx coverage: [employer] ? Affordability: No issues ? Diabetes supplies: [employer] ? Organization System: none ACTIVE PROBLEM LIST Hyperlipidemia Vitamin D Deficiency Pcos (Polycystic Ovarian Syndrome) Type 2 Diabetes Mellitus With Hyperglycemia (Hcc) Type 2 Diabetes Mellitus With Neurological Manifestation (Hcc) Type 2 Diabetes Mellitus With Polyneuropathy (Hcc) Hypoglycemia Unawareness Associated With Type 2 Diabetes Mellitus (Hcc) Hypothyroid Ovarian Cyst, Left Multiple Thyroid Nodules Bilateral Low Back Pain With Sciatica Asymptomatic Pvcs Statin Intolerance Hypogammaglobulinemia (Hcc) Recurrent Infections Allergic Rhinitis Asthma, Well Controlled Meghan On Cpap Obesity (Bmi 30-39.9) Fatty Infiltration of Liver PAST MEDICAL HISTORY Diagnosis Date - Asthma Dr. Vitcorino Trevizo ([facility]) - Dystonia - Elevated LFTs - Fatty infiltration of liver 12/14/2017 - Fibromyalgia - Hyperlipidemia - Hypoglycemia unawareness associated with type 2 diabetes mellitus (HCC) - Hypothyroid - Migraine headache with aura Not always with aura; treated with Botox Injections by Dr. Ellis - Obesity - Obstructive sleep apnea treated with BiPAP Sleep Medicine Doctor--Dr. Lovett - Occipital neuralgia Dr. Lovett - PCOS (polycystic ovarian syndrome) - POTS (postural orthostatic tachycardia syndrome) - Type 2 diabetes mellitus with hyperglycemia (HCC) - Type 2 diabetes mellitus with neurological manifestation (HCC) associated with diabetes - Vitamin D deficiency ALLERGIES Allergen Reactions - Ciprofloxacin Other: See Comments Mother highly allergic to medication - Imitrex [Sumatripta* GI Upset, Vomiting - Nickel Rash, Hives, Swelling - Adhesive Rash, Other: See Comments Pulling of skin - Aspirin GI Upset - Corticosteroids (Gl* Other: See Comments Increase in blood sugars - Cymbalta [Duloxetin* Intolerance - Effexor [Venlafaxin* Other: See Comments - Lipitor [Atorvastat* Hives - Narcotics [Opioids * Other: See Comments Mood changes/depression worsen/if taking must be monitored closley - Nifedipine Other: See Comments Chest pain heart racing and skin flushing - Sulfa (Sulfonamide * Other: See Comments headaches - Tomatoes GI Upset - Topamax [Topiramate] Intolerance - Ultram [Tramadol] Shortness of Breath - Wheat, Wheat Germ Rash Medication List Medication Directions Comments Action/Plan Discontinued: 02/01/2018 5:02 PM amoxicillin-clavulanic acid (AUGMENTIN) 875-125 mg per tablet Take 1 tablet by mouth twice daily. taking blood sugar diagnostic (FREESTYLE LITE STRIPS) test strip Test blood sugar(s) 2 times daily. Dx: DM2 250.00. Insulin: No Blood-Glucose Meter (FREESTYLE LITE METER) monitoring kit Test sugars 2 time daily and when needed. CALCIUM CARBONATE/VITAMIN D3 (VITAMIN D-3 ORAL) Take by mouth. Not taking at the moment Cholecalciferol, Vitamin D3, 5,000 unit tab Take 1 tablet by mouth once daily. taking ciclopirox (LOPROX) 0.77 % cream Apply 1 application to affected area twice daily. CRESTOR 5 mg tablet Take 1 tablet by mouth once daily. taking Discontinued: 02/01/2018 5:02 PM dulaglutide (TRULICITY) 1.5 mg/0.5 mL pnij Inject 1.5 mL subcutaneously once each week. taking enalapril (VASOTEC) 5 mg tablet Take 1 tablet by mouth once daily. Taking; denies for BP, mainly for kidney health fexofenadine (ROLA) 180 mg tablet take 1 tablet by ORAL route every evening as needed Taking PRN Discontinued: 02/01/2018 5:01 PM fluvoxaMINE Maleate (LUVOX) 25 mg tablet Take 1 tablet by mouth daily at bedtime. Taking nightly for depression/anxiety/OCD glimepiride (AMARYL) 4 mg tablet TAKE 1 TABLET BY MOUTH TWICE DAILY. taking Lancets (FREESTYLE LANCETS) lancets Test blood sugar(s) 2 times daily. Dx: DM2 250.00. Insulin: No levalbuterol (XOPENEX) 0.63 mg/3 mL nebulizer solution Use 3 mL via nebulizer every 4 hours as needed for Wheezing/Shortness of Breath. Taking PRN; patient working on getting new nebulizer Discontinued: 02/01/2018 5:04 PM levalbuterol tartrate HFA 45 mcg/actuation inhaler Inhale 2 Puffs as instructed every 4 hours as needed. Use with spacer Taking PRN levonorgestrel (MIRENA) 20 mcg/24 hr (5 years) IUD Inserted in office Using; patient not sure if it is causing cysts; occasionally has pain - has discussed with carpenter apprentice LORazepam (ATIVAN) 1 mg tablet Take 1 tablet by mouth twice daily as needed for Anxiety. ([facility] provider) Taking PRN Magnesium 250 mg tab On Hold Patient not taking: Reported on 02/01/2018 On hold metaxalone (SKELAXIN) 800 mg tablet take 1 tablet by mouth three times a day if needed for pain Taking PRN; reports it helps a lot; denies being groggy when waking up metFORMIN ER (GLUCOPHAGE XR) 500 mg 24 hr tablet Take 2 tablets by mouth twice daily. taking mometasone-formoterol (DULERA) 100-5 mcg/actuation inhaler Inhale 2 Puffs as instructed twice daily. Use with spacer. Rinse mouth out after use. Taking; rinses mouth with water montelukast (SINGULAIR) 10 mg tablet Take 1 tablet by mouth daily at bedtime. taking Nebulizer and Compressor For Neb jose luis Use as directed. Dx: moderate persistent asthma J45.40, disp:lifetime supplies Discontinued: 02/01/2018 5:11 PM olopatadine (PATANOL) 0.1 % ophthalmic solution Use 1 Drop in both eyes twice daily. Has already tired all the other meds in this class (side effects or lack of efficacy) ondansetron orally disintegrating (ZOFRAN ODT) 4 mg disintegrating tablet Take 1 tablet by mouth every 8 hours as needed for Nausea/Vomiting. Taking PRN; taking daily recently pantoprazole DR (PROTONIX) 40 mg tablet Take 1 tablet by mouth daily before breakfast. Take on empty stomach, 1/2 hr before meal. TAKING NEEDED NOW taking triamcinolone acetonide (KENALOG) 0.1 % cream Apply 1 application to affected area three times daily. Apply sparingly to area for rash/itching. triamcinolone acetonide (NASACORT) 55 mcg nasal inhaler Use 2 Sprays in the nose once daily. varicella virus vaccine, PF, (VARIVAX) 1,350 unit/0.5 mL injection Give 1 dose then repeat dose in 4 to 8 weeks later Patient not taking: Reported on 02/01/2018 Rx meds not listed in EPIC: generic Midrin for migraines and Fioricet for migraines (took 1 pill last week for migraines last week) OTCs: guaifenecin PRN for congestion Herbals: none GLYCEMIC CONTROL: ? Glucometer present at visit: No ? SMBG?s: FBG today was 215 - says FBGs usually 200-230; lowest BG was 130 around midday (had skipped meals); highest BG recently was 320 ? Hypoglycemia: none Objective: VITALS: There were no vitals taken for this visit. Last 3 Encounter BP Readings: Date: BP: 02/01/2018 112/72 01/22/2018 115/74 01/20/2018 118/80 Wt: 123.4 kg (272 lb) BMI: 40.29 kg/(m2) LABS Lab Results Component Value Date HBA1C 9.1 01/22/2018 HBA1C 7.5 03/20/2017 HBA1C 7.6 08/07/2016 CMP: Glucose 155 01/22/2018 BUN 9 01/22/2018 Creatinine, Whole Blood (iSTAT) 0.54 01/22/2018 Sodium 139 01/22/2018 Potassium 4.7 01/22/2018 Chloride 103 01/22/2018 CO2 19 01/22/2018 Protein, Total 7.4 03/20/2017 Albumin 4.3 03/20/2017 Calcium 9.5 01/22/2018 Alkaline Phosphatase 46 03/20/2017 Bilirubin, Total 0.3 03/20/2017 AST 32 03/20/2017 ALT 51 03/20/2017 eGFR >60 (per BMP on 01/22/18) Last Lipid Panel Lab Results Component Value Date CHOL 239 01/22/2018 Lab Results Component Value Date HDL 42 01/22/2018 Lab Results Component Value Date LDL 161 01/22/2018 Lab Results Component Value Date TG 179 01/22/2018 Albumin/Creat Ratio (mg/g) Date Value 03/20/2017 45 (H) PHARMACOTHERAPY ASSESSMENT/PLAN: 1. Type 2 diabetes mellitus with hyperglycemia, without long- term current use of insulin ([facility]) - ICD9: 250.00, 790.29, ICD10: E11.65 A1c goal <8%; uncontrolled (last A1c 9.1%); patient highly motivated to reduce A1c to <8% by March 06, 2018 so she can have bariatric surgery; reported FBGs all elevated >200; PharmD explained to patient that A1c is a measurement of blood sugar control over 3 months and it will be very difficult to reduce A1c from 9.1 to <8% in 1 month; patient already maintaining strict diet for bariatric surgery prep so will need to lower BG through medication changes; patient has previously tried other oral medications and not tolerated them (pioglitazone, SGLT2 inhibitors); patient reports history of insulin resistance but is unsure of what insulin she was on in the past; will start insulin degludec today since patient certainly has not tried it before and insulin will be the fastest way to reduce blood sugars; patient does not want to be on insulin long-term but is open to starting it to help control BG for surgery; counseled patient on appropriate dosing, administration, injection technique, and storage of insulin; counseled patient that insulin increases risk of hypoglycemia - reviewed identification/mngt of low blood sugars and provided educational handout; PharmD identified that patient has been inappropriately injecting dulaglutide into bicep - counseled to inject in subcutaneous area; renal fxn and LFTs appropriate for continued use - INITIATE insulin degludec 12 units daily (~0.1 units/kg/day) x 5-7 days, then self-titrate insulin up by 1 unit every 3 days that FBGs >150 - CONTINUE metformin ER 1000mg BID and dulaglutide 1.5mg weekly - Requested that patient check FBG daily and anytime she feels funny - Ordered test strips at patient request Patient does not have f/u appt scheduled with PCP - will f/u with PCP after surgery in February. Patient to have phone f/u with PharmD on 02/28/18. Patient verbalized understanding of instructions. Lobo Rojo, PharmD, [facility] Primary Care Clinical Pharmacist [facility] LOBO ROJO, PHARMACIST 02/07/2018 9:54 AM Addendum Start Tresiba (insulin 12 units) once daily Continue all other medications Check your blood sugar every morning and record your numbers. Take Tresiba 12 units daily for 5-7 days. Then increase Tresiba dose by 1 unit for every 3 days that your fasting blood sugars are >150 mg/dL. Once FBG are <150, maintain dose of insulin. Any questions, call PharmD ([phone]) Allergies As of Date: 02/07/2018 Noted Allergy Reaction CIPROFLOXACIN 04/18/2011 14 - Other: See Comments Comments: Mother highly allergic to medication IMITREX (SUMATRIPTAN SUCCINATE) 04/18/2011 8 - GI Upset 11 - Vomiting NICKEL 05/14/2015 2 - Rash 4 - Hives 7 - Swelling ADHESIVE 04/18/2011 2 - Rash 14 - Other: See Comments Comments: Pulling of skin ASPIRIN 04/18/2011 8 - GI Upset CORTICOSTEROIDS (GLUCOCORTICOIDS) 08/01/2014 14 - Other: See Comments Comments: Increase in blood sugars CYMBALTA (DULOXETINE) 11/28/2013 5 - Intolerance EFFEXOR (VENLAFAXINE) 08/23/2015 14 - Other: See Comments LIPITOR (ATORVASTATIN CALCIUM) 08/26/2014 4 - Hives NARCOTICS (OPIOIDS - MORPHINE JERRICA*11/02/2011 14 - Other: See Comments Comments: Mood changes/depression worsen/if taking must be monitored closley NIFEDIPINE 08/27/2013 14 - Other: See Comments Comments: Chest pain heart racing and skin flushing SULFA (SULFONAMIDE ANTIBIOTICS) 04/18/2011 14 - Other: See Comments Comments: headaches TOMATOES 01/26/2017 8 - GI Upset TOPAMAX (TOPIRAMATE) 11/28/2013 5 - Intolerance ULTRAM (TRAMADOL) 08/01/2014 12 - Shortness of Breath WHEAT, WHEAT GERM 01/26/2017 2 - Rash Date Reviewed: 02/01/2018 Reviewed by: Jigna Dumont LPN - Fully Assessed Reason for Visit: Allied Health Visit [5] Cmt: DM initial Primary Visit Diagnosis:Type 2 diabetes mellitus with hyperglycemia, without long-term current use of insulin (HCC) [E11.65] Order(s):blood sugar diagnostic (FREESTYLE TEST) test stripUse to test blood sugar up to 4 times daily as directed.Disp: 50 StripRfl: 5 insulin degludec (TRESIBA) 100 unit/mL (3 mL) injectionInject 12 Units subcutaneously daily at bedtime.Disp: 2 PenRfl: 5 Insulin [place], Disposable, (BD ULTRA-FINE KALEB PEN NEEDLE) 32 gauge x ndleUse to inject insulin once daily as directedDisp: 50 EachRfl: 5 alcohol swabs padmUse to clean injection area as directed up to twice dailyDisp: 100 EachRfl: 5 Prescriptions as of 02/07/2018 Sig: FIORICET ORAL Take by mouth. Taking as need* MIDRIN ORAL Take by mouth. Taking as need* ALCOHOL SWABS Use to clean injection area a* AMOXICILLIN 875 MG-POTASSIUM * Take 1 tablet by mouth twice * BLOOD SUGAR DIAGNOSTIC STRIPS Use to test blood sugar up to* * BLOOD-GLUCOSE METER KIT Test sugars 2 time daily and * VITAMIN D-3 ORAL Take by mouth. CHOLECALCIFEROL (VITAMIN D3) * Take 1 tablet by mouth once d* CICLOPIROX 0.77 % TOPICAL CRE* Apply 1 application to affect* CRESTOR 5 MG TABLET Take 1 tablet by mouth once d* DULAGLUTIDE 1.5 MG/0.5 ML SUB* Inject 1.5 mL subcutaneously * ENALAPRIL MALEATE 5 MG TABLET Take 1 tablet by mouth once d* FEXOFENADINE 180 MG TABLET take 1 tablet by ORAL route * FLUVOXAMINE 25 MG TABLET Take 1 tablet by mouth daily * GLIMEPIRIDE 4 MG TABLET TAKE 1 TABLET BY MOUTH TWICE * INSULIN DEGLUDEC (U-100) 100 * Inject 12 Units subcutaneousl* PEN NEEDLE, DIABETIC 32 GAUGE* Use to inject insulin once da* LANCETS Test blood sugar(s) 2 times d* LEVALBUTEROL 0.63 MG/3 ML LUIS* Use 3 mL via nebulizer every * LEVALBUTEROL HFA 45 MCG/ACTUA* Inhale 2 Puffs as instructed * LEVONORGESTREL 20 MCG/24 HR (* Inserted in office LORAZEPAM 1 MG TABLET Take 1 tablet by mouth twice * MAGNESIUM 250 MG TABLET On Hold Patient not taking: Reported on 02/01/2018 METAXALONE 800 MG TABLET take 1 tablet by mouth three * METFORMIN ER 500 MG TABLET,EX* Take 2 tablets by mouth twice* MOMETASONE-FORMOTEROL HFA 100* Inhale 2 Puffs as instructed * MONTELUKAST 10 MG TABLET Take 1 tablet by mouth daily * NEBULIZER AND COMPRESSOR Use as directed. Dx: moderat* OLOPATADINE 0.1 % EYE DROPS Use 1 Drop in both eyes twice* ONDANSETRON 4 MG DISINTEGRATI* Take 1 tablet by mouth every * PANTOPRAZOLE 40 MG TABLET,DEL* Take 1 tablet by mouth daily * TRIAMCINOLONE ACETONIDE 0.1 %* Apply 1 application to affect* TRIAMCINOLONE ACETONIDE 55 MC* Use 2 Sprays in the nose once* VARICELLA VIRUS VACCINE LIVE * Give 1 dose then repeat dose * Patient not taking: Reported on 02/01/2018 Problem List As Of Date 02/07/2018 Noted Resolved Diabetes mellitus type 2, uncontrolled (HCC) [E*INVALID FOR*09/03/2015 Hyperlipidemia [E78.5] INVALID FOR* Obesity, Class III, BMI 40-49.9 (morbid obesity*INVALID FOR*09/03/2015 Hypothyroid [E03.9] INVALID FOR*09/03/2015 Obstructive sleep apnea [G47.33] INVALID FOR*09/03/2015 Asthma, moderate persistent [J45.40] INVALID FOR*09/03/2015 Albuminuria [R80.9] INVALID FOR*09/03/2015 Vitamin D deficiency [E55.9] INVALID FOR* Faintness [R55] INVALID FOR*09/03/2015 Type 2 diabetes, controlled, with neuropathy (H*INVALID FOR*02/05/2015 PCOS (polycystic ovarian syndrome) [E28.2] INVALID FOR* More... Migraine headache without aura [G43.009] INVALID FOR*09/03/2015 More... Restless legs syndrome (RLS) [G25.81] INVALID FOR*09/03/2015 More... Right ankle instability [M25.371] INVALID FOR*09/03/2015 Left ankle instability [M25.372] INVALID FOR*09/03/2015 Type 2 diabetes mellitus with hyperglycemia (HC* More... Type 2 diabetes mellitus with neurological john* More... Type 2 diabetes mellitus with polyneuropathy (H* Hypoglycemia unawareness associated with type 2* Obesity [E66.9] 09/05/2016 Hypothyroid [E03.9] More... Ovarian cyst, left [N83.202] INVALID FOR* Multiple thyroid nodules [E04.2] INVALID FOR* Bilateral low back pain with sciatica [M54.40] INVALID FOR* Asymptomatic PVCs [I49.3] INVALID FOR* Morbid obesity with BMI of 40.0-44.9, adult (HC*INVALID FOR*05/14/2017 Statin intolerance [Z78.9] INVALID FOR* More... Hypogammaglobulinemia (HCC) [D80.1] INVALID FOR* Recurrent infections [B99.9] INVALID FOR* Allergic rhinitis [J30.9] INVALID FOR* Asthma, well controlled [J45.909] INVALID FOR* MEGHAN on CPAP [G47.33, Z99.89] INVALID FOR* Obesity (BMI 30-39.9) [E66.9] INVALID FOR* Fatty infiltration of liver [K76.0] INVALID FOR* Other instructions from your clinician: Start Tresiba (insulin 12 units) once daily Continue all other medications Check your blood sugar every morning and record your numbers. Take Tresiba 12 units daily for 5-7 days. Then increase Tresiba dose by 1 unit for every 3 days that your fasting blood sugars are >150 mg/dL. Once FBG are <150, maintain dose of insulin. Any questions, call PharmD ([phone]) Prescriptions ordered this encounter Disp Refills Start End BLOOD SUGAR DIAGNOSTIC STRIPS 50 S* 5 02/07/2018 Sig: Use to test blood sugar up to 4 times daily as directed. INSULIN DEGLUDEC (U-100) 100 UNIT/ML* 2 Pen 5 02/07/2018 Route: SUBCUTANEOUS Sig: Inject 12 Units subcutaneously daily at bedtime. PEN NEEDLE, DIABETIC 32 GAUGE X 50 E* 5 02/07/2018 Sig: Use to inject insulin once daily as directed ALCOHOL SWABS 100 * 5 02/07/2018 Sig: Use to clean injection area as directed up to twice daily Medications Discontinued During This Encounter blood sugar diagnostic (FREESTYLE LI* 50 S* 5 12/24/2013 02/07/2018 Sig: Test blood sugar(s) 2 times daily. Dx: DM2 250.00. Insulin: No Disc: Reason for discontinue is not on file. Encounter Status:Closed by LOBO ROJO (PHARMACIST) on 02/07/18 CNPN Observed: 02/04/2018 Status: COMPLETED Source: [place] 12:00 AM [facility] REPOSITORY Telephone (PHARMN) MARIANA EARLY ([id number]) 1980 F Date Time Provider Department [facility] GAURAV During your visit today, we recorded the following information about you: TODD See [facility] 02/04/2018 9:34 AM Signed Called pt. regarding New Pharmacy referral. Left message. [phone]. TODD See [facility] 02/04/2018 2:55 PM Signed Spoke with pt. today who stated she is waiting for Dr. Blue to give her a call back regarding New Pharmacy referral, pt. needs appt. juan (no opening till 02/28/17) Md would like pt. to be seen this week due to upcoming surgery on 03/06/17. Pt. is willing to do telephone visit or virtual visit. Pt. can be reached at [phone]. ROM MARQUEZ 02/04/2018 4:41 PM Signed Called patient - I have AM (02/07) blocked for shared medical appt with Dr. Blue but I would be able to schedule patient for 9 AM, prior to the [facility]. Called patient to inform her of this but unable to reach - LMOM to return call to office. Lobo Rojo, PharmD, BCPS Primary Care Clinical Pharmacist [facility] ROM FABIAN 02/04/2018 5:04 PM Signed Patient returned call. Scheduled her for at 9am. Lisa Mccray, PharmD, BCPS Primary Care Clinical Pharmacist [facility] Allergies As of Date: 02/04/2018 Noted Allergy Reaction CIPROFLOXACIN 04/18/2011 14 - Other: See Comments Comments: Mother highly allergic to medication IMITREX (SUMATRIPTAN SUCCINATE) 04/18/2011 8 - GI Upset 11 - Vomiting NICKEL 05/14/2015 2 - Rash 4 - Hives 7 - Swelling ADHESIVE 04/18/2011 2 - Rash 14 - Other: See Comments Comments: Pulling of skin ASPIRIN 04/18/2011 8 - GI Upset CORTICOSTEROIDS (GLUCOCORTICOIDS) 08/01/2014 14 - Other: See Comments Comments: Increase in blood sugars CYMBALTA (DULOXETINE) 11/28/2013 5 - Intolerance EFFEXOR (VENLAFAXINE) 08/23/2015 14 - Other: See Comments LIPITOR (ATORVASTATIN CALCIUM) 08/26/2014 4 - Hives NARCOTICS (OPIOIDS - MORPHINE JERRICA*11/02/2011 14 - Other: See Comments Comments: Mood changes/depression worsen/if taking must be monitored closley NIFEDIPINE 08/27/2013 14 - Other: See Comments Comments: Chest pain heart racing and skin flushing SULFA (SULFONAMIDE ANTIBIOTICS) 04/18/2011 14 - Other: See Comments Comments: headaches TOMATOES 01/26/2017 8 - GI Upset TOPAMAX (TOPIRAMATE) 11/28/2013 5 - Intolerance ULTRAM (TRAMADOL) 08/01/2014 12 - Shortness of Breath WHEAT, WHEAT GERM 01/26/2017 2 - Rash Date Reviewed: 02/01/2018 Reviewed by: Jigna Dumont LPN - Fully Assessed Reason for Visit: New Pharmacy Med-Review [Other] Prescriptions as of 02/04/2018 Sig: AMOXICILLIN 875 MG-POTASSIUM * Take 1 tablet by mouth twice * OLOPATADINE 0.1 % EYE DROPS Use 1 Drop in both eyes twice* FEXOFENADINE 180 MG TABLET take 1 tablet by ORAL route * TRIAMCINOLONE ACETONIDE 55 MC* Use 2 Sprays in the nose once* MONTELUKAST 10 MG TABLET Take 1 tablet by mouth daily * MOMETASONE-FORMOTEROL HFA 100* Inhale 2 Puffs as instructed * LEVALBUTEROL HFA 45 MCG/ACTUA* Inhale 2 Puffs as instructed * NEBULIZER AND COMPRESSOR Use as directed. Dx: moderat* METAXALONE 800 MG TABLET take 1 tablet by mouth three * TRIAMCINOLONE ACETONIDE 0.1 %* Apply 1 application to affect* MAGNESIUM 250 MG TABLET On Hold Patient not taking: Reported on 02/01/2018 CICLOPIROX 0.77 % TOPICAL CRE* Apply 1 application to affect* VITAMIN D-3 ORAL Take by mouth. VARICELLA VIRUS VACCINE LIVE * Give 1 dose then repeat dose * Patient not taking: Reported on 02/01/2018 GLIMEPIRIDE 4 MG TABLET TAKE 1 TABLET BY MOUTH TWICE * DULAGLUTIDE 1.5 MG/0.5 ML SUB* Inject 1.5 mL subcutaneously * FLUVOXAMINE 25 MG TABLET Take 1 tablet by mouth daily * PANTOPRAZOLE 40 MG TABLET,DEL* Take 1 tablet by mouth daily * ENALAPRIL MALEATE 5 MG TABLET Take 1 tablet by mouth once d* METFORMIN ER 500 MG TABLET,EX* Take 2 tablets by mouth twice* LEVALBUTEROL 0.63 MG/3 ML LUIS* Use 3 mL via nebulizer every * LORAZEPAM 1 MG TABLET Take 1 tablet by mouth twice * CRESTOR 5 MG TABLET Take 1 tablet by mouth once d* ONDANSETRON 4 MG DISINTEGRATI* Take 1 tablet by mouth every * LEVONORGESTREL 20 MCG/24 HR (* Inserted in office LANCETS Test blood sugar(s) 2 times d* CHOLECALCIFEROL (VITAMIN D3) * Take 1 tablet by mouth once d* BLOOD SUGAR DIAGNOSTIC STRIPS Test blood sugar(s) 2 times d* * BLOOD-GLUCOSE METER KIT Test sugars 2 time daily and * Problem List As Of Date 02/04/2018 Noted Resolved Diabetes mellitus type 2, uncontrolled (HCC) [E*INVALID FOR*09/03/2015 Hyperlipidemia [E78.5] INVALID FOR* Obesity, Class III, BMI 40-49.9 (morbid obesity*INVALID FOR*09/03/2015 Hypothyroid [E03.9] INVALID FOR*09/03/2015 Obstructive sleep apnea [G47.33] INVALID FOR*09/03/2015 Asthma, moderate persistent [J45.40] INVALID FOR*09/03/2015 Albuminuria [R80.9] INVALID FOR*09/03/2015 Vitamin D deficiency [E55.9] INVALID FOR* Faintness [R55] INVALID FOR*09/03/2015 Type 2 diabetes, controlled, with neuropathy (H*INVALID FOR*02/05/2015 PCOS (polycystic ovarian syndrome) [E28.2] INVALID FOR* More... Migraine headache without aura [G43.009] INVALID FOR*09/03/2015 More... Restless legs syndrome (RLS) [G25.81] INVALID FOR*09/03/2015 More... Right ankle instability [M25.371] INVALID FOR*09/03/2015 Left ankle instability [M25.372] INVALID FOR*09/03/2015 Type 2 diabetes mellitus with hyperglycemia (HC* More... Type 2 diabetes mellitus with neurological john* More... Type 2 diabetes mellitus with polyneuropathy (H* Hypoglycemia unawareness associated with type 2* Obesity [E66.9] 09/05/2016 Hypothyroid [E03.9] More... Ovarian cyst, left [N83.202] INVALID FOR* Multiple thyroid nodules [E04.2] INVALID FOR* Bilateral low back pain with sciatica [M54.40] INVALID FOR* Asymptomatic PVCs [I49.3] INVALID FOR* Morbid obesity with BMI of 40.0-44.9, adult (HC*INVALID FOR*05/14/2017 Statin intolerance [Z78.9] INVALID FOR* More... Hypogammaglobulinemia (HCC) [D80.1] INVALID FOR* Recurrent infections [B99.9] INVALID FOR* Allergic rhinitis [J30.9] INVALID FOR* Asthma, well controlled [J45.909] INVALID FOR* MEGHAN on CPAP [G47.33, Z99.89] INVALID FOR* Obesity (BMI 30-39.9) [E66.9] INVALID FOR* Fatty infiltration of liver [K76.0] INVALID FOR* Encounter Status:Closed by CEE (PHARMACIST)LOBO on 02/04/18 PROGRESS Observed: 02/01/2018 Status: COMPLETED Source: [place] 4:53 PM [facility] [place] REPOSITORY HNO ID: [id number] Author: Stoney Blue Service: (none) Author Type: Physician Type: Progress Notes Filed: 02/21/2018 7:27 PM Note Text: HISTORY Mariana Early is a 37 year old lady here for pre-op evaluation as requested by Dr. Tommy Avila. Mariana Early has surgery scheduled on March 06, 2018 for Bariatric Surgery (sleeve) at [facility]. Just had sinoplasty done today. Doing okay. On Augmentin per protocol Otherwise doing well. Sugars have been running high--has Freestyle Haroldo. Residual wheezing from recent bronchitis infection. 10/23/2017--Records from prior flight control manager scanned in. (Dr. Trevizo) PAST MEDICAL HISTORY Diagnosis Date - Asthma Dr. Victorino Trevizo ([facility]) - Dystonia - Elevated LFTs - Fatty infiltration of liver 12/14/2017 - Fibromyalgia - Hyperlipidemia - Hypoglycemia unawareness associated with type 2 diabetes mellitus (HCC) - Hypothyroid - Migraine headache with aura Not always with aura; treated with Botox Injections by Dr. Ellis - Obesity - Obstructive sleep apnea treated with BiPAP Sleep Medicine Doctor--Dr. Lovett - Occipital neuralgia Dr. 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 Lyon - PAST SURGICAL HISTORY OF cyst removed from Rt eye lid - PAST SURGICAL HISTORY OF scar tissue removed for breast, left - PAST SURGICAL HISTORY OF cysts from the lower back x 2 - PAST SURGICAL HISTORY OF - PAST SURGICAL HISTORY OF Allergy injections once a week - RHINOPLASTY FOR NOSE DEFORM TIP SEPTUM, OS ALLERGIES Allergen Reactions - Ciprofloxacin Other: See Comments Mother highly allergic to medication - Imitrex [Sumatripta* GI Upset, Vomiting - Nickel Rash, Hives, Swelling - Adhesive Rash, Other: See Comments Pulling of skin - Aspirin GI Upset - Corticosteroids (Gl* Other: See Comments Increase in blood sugars - Cymbalta [Duloxetin* Intolerance - Effexor [Venlafaxin* Other: See Comments - Lipitor [Atorvastat* Hives - Narcotics [Opioids * Other: See Comments Mood changes/depression worsen/if taking must be monitored closley - Nifedipine Other: See Comments Chest pain heart racing and skin flushing - Sulfa (Sulfonamide * Other: See Comments headaches - Tomatoes GI Upset - Topamax [Topiramate] Intolerance - Ultram [Tramadol] Shortness of Breath - Wheat, Wheat Germ Rash Current Outpatient Prescriptions: fexofenadine (ROLA) 180 mg tablet take 1 tablet by ORAL route every evening as needed triamcinolone acetonide (NASACORT) 55 mcg nasal inhaler Use 2 Sprays in the nose once daily. montelukast (SINGULAIR) 10 mg tablet Take 1 tablet by mouth daily at bedtime. mometasone-formoterol (DULERA) 100-5 mcg/actuation inhaler Inhale 2 Puffs as instructed twice daily. Use with spacer. Rinse mouth out after use. levalbuterol tartrate HFA 45 mcg/actuation inhaler Inhale 2 Puffs as instructed every 4 hours as needed. Use with spacer Nebulizer and Compressor For Neb jose luis Use as directed. Dx: moderate persistent asthma J45.40, disp:lifetime supplies metaxalone (SKELAXIN) 800 mg tablet take 1 tablet by mouth three times a day if needed for pain triamcinolone acetonide (KENALOG) 0.1 % cream Apply 1 application to affected area three times daily. Apply sparingly to area for rash/itching. ciclopirox (LOPROX) 0.77 % cream Apply 1 application to affected area twice daily. CALCIUM CARBONATE/VITAMIN D3 (VITAMIN D-3 ORAL) Take by mouth. glimepiride (AMARYL) 4 mg tablet TAKE 1 TABLET BY MOUTH TWICE DAILY. dulaglutide (TRULICITY) 1.5 mg/0.5 mL pnij Inject 1.5 mL subcutaneously once each week. fluvoxaMINE Maleate (LUVOX) 25 mg tablet Take 1 tablet by mouth daily at bedtime. pantoprazole DR (PROTONIX) 40 mg tablet Take 1 tablet by mouth daily before breakfast. Take on empty stomach, 1/2 hr before meal. TAKING NEEDED NOW enalapril (VASOTEC) 5 mg tablet Take 1 tablet by mouth once daily. metFORMIN ER (GLUCOPHAGE XR) 500 mg 24 hr tablet Take 2 tablets by mouth twice daily. levalbuterol (XOPENEX) 0.63 mg/3 mL nebulizer solution Use 3 mL via nebulizer every 4 hours as needed for Wheezing/Shortness of Breath. LORazepam (ATIVAN) 1 mg tablet Take 1 tablet by mouth twice daily as needed for Anxiety. (Counseling Center provider) CRESTOR 5 mg tablet Take 1 tablet by mouth once daily. ondansetron orally disintegrating (ZOFRAN ODT) 4 mg disintegrating tablet Take 1 tablet by mouth every 8 hours as needed for Nausea/Vomiting. levonorgestrel (MIRENA) 20 mcg/24 hr (5 years) IUD Inserted in office Lancets (FREESTYLE LANCETS) lancets Test blood sugar(s) 2 times daily. Dx: DM2 250.00. Insulin: No LEVALBUTEROL HCL (XOPENEX INHALATION) Use 1 Vial via nebulizer every 6 hours as needed. Cholecalciferol, Vitamin D3, 5,000 unit tab Take 1 tablet by mouth once daily. blood sugar diagnostic (FREESTYLE LITE STRIPS) test strip Test blood sugar(s) 2 times daily. Dx: DM2 250.00. Insulin: No Blood-Glucose Meter (FREESTYLE LITE METER) monitoring kit Test sugars 2 time daily and when needed. amoxicillin-clavulanic acid (AUGMENTIN) 875-125 mg per tablet Take 1 tablet by mouth twice daily. Magnesium 250 mg tab On Hold (Patient not taking: Reported on 02/01/2018 ) varicella virus vaccine, PF, (VARIVAX) 1,350 unit/0.5 mL injection Give 1 dose then repeat dose in 4 to 8 weeks later (Patient not taking: Reported on 02/01/2018 ) olopatadine (PATANOL) 0.1 % ophthalmic solution Use 1 Drop in both eyes twice daily. (Dr. Díaz--Sl[employer] And Rewinder Machine Operator) (Patient not taking: Reported on 02/01/2018 ) No current facility-administered medications for this visit. FAMILY HISTORY Problem Relation Age of Onset - Diabetes Mother patient states her mother is no longer diabetic - Thyroid Mother - Cataract Mother - Diabetes Maternal Grandmother - Stroke Maternal Grandmother - Heart Maternal Grandmother afib, tach - other (fibromyalgia) Other multiple female relatives - other (polycystic ovarian syndrome) Other multiple female relatives - other (autism spectrum) Other uncle, cousins, self Social History Marital status: Single Spouse name: Years of education: Number of children: Social History Main Topics Smoking status: Never Smoker Smokeless tobacco: Never Used Alcohol use: Yes 1.5 oz/week Glasses of Wine (5oz): 1 per week Drug use: No Sexual activity: Yes Partners with: Male control/protection: IUD Comment: micheal REVIEW OF SYSTEMS PHYSICAL EXAMINATION: Blood pressure 112/72, pulse 78, temperature 37 ?C (98.6 ?F), temperature source Right Tympanic, resp. rate 18, weight 123.4 kg (272 lb). General appearance: well appearing, in no acute distress, well-hydrated, well nourished Skin: Skin color, texture, turgor normal. No significant rashes or lesions. Head: Normal Eyes: Anicteric sclera. Pupils are equally round and reactive to light. Extraocular movements are intact. Ears: External ears normal. Canals clear. TM's unremarkable. Nose/Sinuses: negative aside from the epistaxis Oropharynx: Lips, mucosa, and tongue normal. Teeth and gums normal. Oropharynx normal. Neck: Neck supple, no adenopathy; thyroid symmetric, normal size, no bruits. Lungs: Lungs clear to auscultation Heart: negative. RRR without murmur, gallop, or rubs. No ectopy. Abdomen: Abdomen soft, non-tender. Bowel sounds normal. No masses, organomegaly Extremities: Extremities normal. No deformities, edema, or skin discoloration. Good capillary refill. Musculoskeletal: grossly normal Peripheral pulses: Normal Neuro: Gait normal. Reflexes normal and symmetric. Sensation grossly intact. No gross focal neurological deficits. ASSESSMENT AND PLAN See diagnoses and orders. Encounter Diagnosis ICD-10-CM 1. Preoperative evaluation to rule out surgical contraindication Z01.818 2. Uncontrolled type 2 diabetes mellitus with hyperglycemia (HCC) E11.65 CONSULT TO AMBULATORY CLINIC PHARMACY 3. Asthma, moderate persistent, well-controlled J45.40 Reviewed plans for bariatric surgery scheduled for March 06, 2018. Optimizing glycemic control to decrease her risk for complications, especially for decreasing risk of infection. Referred to pharmacy so they can get sugars quickly optimized. Though HgA1C will not likely come down to less than 8 before planned surgery date, can check sugars with her Freestyle Haroldo and show whether or not has gotten average sugars down to under 185 which would correlate with HgA1C under 8. Also seeing flight control manager for asthma. Should be healed from sinus surgery in the next couple weeks. Follow up with ENT as needed. No medical contraindications to planned surgical procedure at this time. Will continue current medications with adjustments per pharmacist for DM control and for asthma per flight control manager as needed. Would hold glimepiride and metformin the day of surgery. Would not resume until after able to eat normal meals unless sugars are going over 200. If blood sugars are able to controlled without her medication, okay to stay off after surgery. Patient may call about sugars to be managed by me and/or the pharmacist after she gets home from surgery if having trouble adjusting the medications. Will communicate results of this preop evaluation with Dr. Tommy Avila via fax of this HANDP. Stoney Blue MD] CNOV Observed: 02/01/2018 Status: COMPLETED Source: [place] 3:40 PM [facility] REPOSITORY Office Visit (INTMWS) MARIANA EARLY ([id number]) 1980 F Date Time Provider Department 02/01/18 3:40 PM STONEY BLUE INTMWS During your visit today, we recorded the following information about you: Temperature Pulse Respiration Blood pressure 98.6 degrees 78/minute 18/minute 112/72 Weight 123.4 kg Stoney Blue MD 02/21/2018 7:27 PM Signed HISTORY Mariana Early is a 37 year old lady here for pre-op evaluation as requested by Dr. Tommy Avila. Mariana Early has surgery scheduled on March 06, 2018 for Bariatric Surgery (sleeve) at [facility]. Just had sinoplasty done today. Doing okay. On Augmentin per protocol Otherwise doing well. Sugars have been running high--has Freestyle Haroldo. Residual wheezing from recent bronchitis infection. 10/23/2017--Records from prior flight control manager scanned in. (Dr. Trevizo) PAST MEDICAL HISTORY Diagnosis Date - Asthma Dr. Victorino Trevizo ([facility]) - Dystonia - Elevated LFTs - Fatty infiltration of liver 12/14/2017 - Fibromyalgia - Hyperlipidemia - Hypoglycemia unawareness associated with type 2 diabetes mellitus (HCC) - Hypothyroid - Migraine headache with aura Not always with aura; treated with Botox Injections by Dr. Ellis - Obesity - Obstructive sleep apnea treated with BiPAP Sleep Medicine Doctor--Dr. Lovett - Occipital neuralgia Dr. 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 Lyon - PAST SURGICAL HISTORY OF cyst removed from Rt eye lid - PAST SURGICAL HISTORY OF scar tissue removed for breast, left - PAST SURGICAL HISTORY OF cysts from the lower back x 2 - PAST SURGICAL HISTORY OF - PAST SURGICAL HISTORY OF Allergy injections once a week - RHINOPLASTY FOR NOSE DEFORM TIP SEPTUM, OS ALLERGIES Allergen Reactions - Ciprofloxacin Other: See Comments Mother highly allergic to medication - Imitrex [Sumatripta* GI Upset, Vomiting - Nickel Rash, Hives, Swelling - Adhesive Rash, Other: See Comments Pulling of skin - Aspirin GI Upset - Corticosteroids (Gl* Other: See Comments Increase in blood sugars - Cymbalta [Duloxetin* Intolerance - Effexor [Venlafaxin* Other: See Comments - Lipitor [Atorvastat* Hives - Narcotics [Opioids * Other: See Comments Mood changes/depression worsen/if taking must be monitored closley - Nifedipine Other: See Comments Chest pain heart racing and skin flushing - Sulfa (Sulfonamide * Other: See Comments headaches - Tomatoes GI Upset - Topamax [Topiramate] Intolerance - Ultram [Tramadol] Shortness of Breath - Wheat, Wheat Germ Rash Current Outpatient Prescriptions: fexofenadine (ROLA) 180 mg tablet take 1 tablet by ORAL route every evening as needed triamcinolone acetonide (NASACORT) 55 mcg nasal inhaler Use 2 Sprays in the nose once daily. montelukast (SINGULAIR) 10 mg tablet Take 1 tablet by mouth daily at bedtime. mometasone-formoterol (DULERA) 100-5 mcg/actuation inhaler Inhale 2 Puffs as instructed twice daily. Use with spacer. Rinse mouth out after use. levalbuterol tartrate HFA 45 mcg/actuation inhaler Inhale 2 Puffs as instructed every 4 hours as needed. Use with spacer Nebulizer and Compressor For Neb jose luis Use as directed. Dx: moderate persistent asthma J45.40, disp:lifetime supplies metaxalone (SKELAXIN) 800 mg tablet take 1 tablet by mouth three times a day if needed for pain triamcinolone acetonide (KENALOG) 0.1 % cream Apply 1 application to affected area three times daily. Apply sparingly to area for rash/itching. ciclopirox (LOPROX) 0.77 % cream Apply 1 application to affected area twice daily. CALCIUM CARBONATE/VITAMIN D3 (VITAMIN D-3 ORAL) Take by mouth. glimepiride (AMARYL) 4 mg tablet TAKE 1 TABLET BY MOUTH TWICE DAILY. dulaglutide (TRULICITY) 1.5 mg/0.5 mL pnij Inject 1.5 mL subcutaneously once each week. fluvoxaMINE Maleate (LUVOX) 25 mg tablet Take 1 tablet by mouth daily at bedtime. pantoprazole DR (PROTONIX) 40 mg tablet Take 1 tablet by mouth daily before breakfast. Take on empty stomach, 1/2 hr before meal. TAKING NEEDED NOW enalapril (VASOTEC) 5 mg tablet Take 1 tablet by mouth once daily. metFORMIN ER (GLUCOPHAGE XR) 500 mg 24 hr tablet Take 2 tablets by mouth twice daily. levalbuterol (XOPENEX) 0.63 mg/3 mL nebulizer solution Use 3 mL via nebulizer every 4 hours as needed for Wheezing/Shortness of Breath. LORazepam (ATIVAN) 1 mg tablet Take 1 tablet by mouth twice daily as needed for Anxiety. (Counseling Center provider) CRESTOR 5 mg tablet Take 1 tablet by mouth once daily. ondansetron orally disintegrating (ZOFRAN ODT) 4 mg disintegrating tablet Take 1 tablet by mouth every 8 hours as needed for Nausea/Vomiting. levonorgestrel (MIRENA) 20 mcg/24 hr (5 years) IUD Inserted in office Lancets (FREESTYLE LANCETS) lancets Test blood sugar(s) 2 times daily. Dx: DM2 250.00. Insulin: No LEVALBUTEROL HCL (XOPENEX INHALATION) Use 1 Vial via nebulizer every 6 hours as needed. Cholecalciferol, Vitamin D3, 5,000 unit tab Take 1 tablet by mouth once daily. blood sugar diagnostic (FREESTYLE LITE STRIPS) test strip Test blood sugar(s) 2 times daily. Dx: DM2 250.00. Insulin: No Blood-Glucose Meter (FREESTYLE LITE METER) monitoring kit Test sugars 2 time daily and when needed. amoxicillin-clavulanic acid (AUGMENTIN) 875-125 mg per tablet Take 1 tablet by mouth twice daily. Magnesium 250 mg tab On Hold (Patient not taking: Reported on 02/01/2018 ) varicella virus vaccine, PF, (VARIVAX) 1,350 unit/0.5 mL injection Give 1 dose then repeat dose in 4 to 8 weeks later (Patient not taking: Reported on 02/01/2018 ) olopatadine (PATANOL) 0.1 % ophthalmic solution Use 1 Drop in both eyes twice daily. (Dr. Díaz--Slitter And Rewinder Machine Operator) (Patient not taking: Reported on 02/01/2018 ) No current facility-administered medications for this visit. FAMILY HISTORY Problem Relation Age of Onset - Diabetes Mother patient states her mother is no longer diabetic - Thyroid Mother - Cataract Mother - Diabetes Maternal Grandmother - Stroke Maternal Grandmother - Heart Maternal Grandmother afib, tach - other (fibromyalgia) Other multiple female relatives - other (polycystic ovarian syndrome) Other multiple female relatives - other (autism spectrum) Other uncle, cousins, self Social History Marital status: Single Spouse name: Years of education: Number of children: Social History Main Topics Smoking status: Never Smoker Smokeless tobacco: Never Used Alcohol use: Yes 1.5 oz/week Glasses of Wine (5oz): 1 per week Drug use: No Sexual activity: Yes Partners with: Male control/protection: IUD Comment: micheal REVIEW OF SYSTEMS PHYSICAL EXAMINATION: Blood pressure 112/72, pulse 78, temperature 37 ?C (98.6 ?F), temperature source Right Tympanic, resp. rate 18, weight 123.4 kg (272 lb). General appearance: well appearing, in no acute distress, well-hydrated, well nourished Skin: Skin color, texture, turgor normal. No significant rashes or lesions. Head: Normal Eyes: Anicteric sclera. Pupils are equally round and reactive to light. Extraocular movements are intact. Ears: External ears normal. Canals clear. TM's unremarkable. Nose/Sinuses: negative aside from the epistaxis Oropharynx: Lips, mucosa, and tongue normal. Teeth and gums normal. Oropharynx normal. Neck: Neck supple, no adenopathy; thyroid symmetric, normal size, no bruits. Lungs: Lungs clear to auscultation Heart: negative. RRR without murmur, gallop, or rubs. No ectopy. Abdomen: Abdomen soft, non-tender. Bowel sounds normal. No masses, organomegaly Extremities: Extremities normal. No deformities, edema, or skin discoloration. Good capillary refill. Musculoskeletal: grossly normal Peripheral pulses: Normal Neuro: Gait normal. Reflexes normal and symmetric. Sensation grossly intact. No gross focal neurological deficits. ASSESSMENT AND PLAN See diagnoses and orders. Encounter Diagnosis ICD-10-CM 1. Preoperative evaluation to rule out surgical contraindication Z01.818 2. Uncontrolled type 2 diabetes mellitus with hyperglycemia (HCC) E11.65 CONSULT TO AMBULATORY CLINIC PHARMACY 3. Asthma, moderate persistent, well-controlled J45.40 Reviewed plans for bariatric surgery scheduled for March 06, 2018. Optimizing glycemic control to decrease her risk for complications, especially for decreasing risk of infection. Referred to pharmacy so they can get sugars quickly optimized. Though HgA1C will not likely come down to less than 8 before planned surgery date, can check sugars with her Freestyle Haroldo and show whether or not has gotten average sugars down to under 185 which would correlate with HgA1C under 8. Also seeing flight control manager for asthma. Should be healed from sinus surgery in the next couple weeks. Follow up with ENT as needed. No medical contraindications to planned surgical procedure at this time. Will continue current medications with adjustments per pharmacist for DM control and for asthma per flight control manager as needed. Would hold glimepiride and metformin the day of surgery. Would not resume until after able to eat normal meals unless sugars are going over 200. If blood sugars are able to controlled without her medication, okay to stay off after surgery. Patient may call about sugars to be managed by me and/or the pharmacist after she gets home from surgery if having trouble adjusting the medications. Will communicate results of this preop evaluation with Dr. Tommy Avila via fax of this HANDP. Stoney Blue MD] Allergies As of Date: 02/01/2018 Noted Allergy Reaction CIPROFLOXACIN 04/18/2011 14 - Other: See Comments Comments: Mother highly allergic to medication IMITREX (SUMATRIPTAN SUCCINATE) 04/18/2011 8 - GI Upset 11 - Vomiting NICKEL 05/14/2015 2 - Rash 4 - Hives 7 - Swelling ADHESIVE 04/18/2011 2 - Rash 14 - Other: See Comments Comments: Pulling of skin ASPIRIN 04/18/2011 8 - GI Upset CORTICOSTEROIDS (GLUCOCORTICOIDS) 08/01/2014 14 - Other: See Comments Comments: Increase in blood sugars CYMBALTA (DULOXETINE) 11/28/2013 5 - Intolerance EFFEXOR (VENLAFAXINE) 08/23/2015 14 - Other: See Comments LIPITOR (ATORVASTATIN CALCIUM) 08/26/2014 4 - Hives NARCOTICS (OPIOIDS - MORPHINE JERRICA*11/02/2011 14 - Other: See Comments Comments: Mood changes/depression worsen/if taking must be monitored closley NIFEDIPINE 08/27/2013 14 - Other: See Comments Comments: Chest pain heart racing and skin flushing SULFA (SULFONAMIDE ANTIBIOTICS) 04/18/2011 14 - Other: See Comments Comments: headaches TOMATOES 01/26/2017 8 - GI Upset TOPAMAX (TOPIRAMATE) 11/28/2013 5 - Intolerance ULTRAM (TRAMADOL) 08/01/2014 12 - Shortness of Breath WHEAT, WHEAT GERM 01/26/2017 2 - Rash Date Reviewed: 02/01/2018 Reviewed by: Jigna Dumont LPN - Fully Assessed Reason for Visit: Recheck [92] Cmt: Preparation for surgery Primary Visit Diagnosis:Preoperative evaluation to rule out surgical contraindication [Z01.818] Other Visit Diagnoses:Uncontrolled type 2 diabetes mellitus with hyperglycemia (HCC) [E11.65] Asthma, moderate persistent, well- controlled [J45.40] Order(s):olopatadine (PATANOL) 0.1 % ophthalmic solutionUse 1 Drop in both eyes twice daily. Has already tired all the other meds in this class (side effects or lack of efficacy)Disp: 1 BottleRfl: 5 CONSULT TO AMBULATORY CLINIC PHARMACY [[id number]] Order #: [id number]: 1 Prescriptions as of 02/01/2018 Sig: * BLOOD-GLUCOSE METER KIT Test sugars 2 time daily and * CHOLECALCIFEROL (VITAMIN D3) * Take 1 tablet by mouth once d* CICLOPIROX 0.77 % TOPICAL CRE* Apply 1 application to affect* CRESTOR 5 MG TABLET Take 1 tablet by mouth once d* DULAGLUTIDE 1.5 MG/0.5 ML SUB* Inject 1.5 mL subcutaneously * ENALAPRIL MALEATE 5 MG TABLET Take 1 tablet by mouth once d* FEXOFENADINE 180 MG TABLET take 1 tablet by ORAL route * FLUVOXAMINE 25 MG TABLET Take 1 tablet by mouth daily * GLIMEPIRIDE 4 MG TABLET TAKE 1 TABLET BY MOUTH TWICE * LANCETS Test blood sugar(s) 2 times d* LEVALBUTEROL 0.63 MG/3 ML LUIS* Use 3 mL via nebulizer every * LEVALBUTEROL HFA 45 MCG/ACTUA* Inhale 2 Puffs as instructed * LEVONORGESTREL 20 MCG/24 HR (* Inserted in office LORAZEPAM 1 MG TABLET Take 1 tablet by mouth twice * METAXALONE 800 MG TABLET take 1 tablet by mouth three * METFORMIN ER 500 MG TABLET,EX* Take 2 tablets by mouth twice* MOMETASONE-FORMOTEROL HFA 100* Inhale 2 Puffs as instructed * MONTELUKAST 10 MG TABLET Take 1 tablet by mouth daily * NEBULIZER AND COMPRESSOR Use as directed. Dx: moderat* ONDANSETRON 4 MG DISINTEGRATI* Take 1 tablet by mouth every * PANTOPRAZOLE 40 MG TABLET,DEL* Take 1 tablet by mouth daily * TRIAMCINOLONE ACETONIDE 0.1 %* Apply 1 application to affect* TRIAMCINOLONE ACETONIDE 55 MC* Use 2 Sprays in the nose once* X BLOOD SUGAR DIAGNOSTIC STRIPS Test blood sugar(s) 2 times d* X VITAMIN D-3 ORAL Take by mouth. OLOPATADINE 0.1 % EYE DROPS Use 1 Drop in both eyes twice* VARICELLA VIRUS VACCINE LIVE * Give 1 dose then repeat dose * Patient not taking: Reported on 02/01/2018 X AMOXICILLIN 875 MG-POTASSIUM * Take 1 tablet by mouth twice * X MAGNESIUM 250 MG TABLET On Hold Patient not taking: Reported on 02/01/2018 Medication notes this encounter CRESTOR 5 MG TABLET >> Stoney Blue MD 02/01/2018 5:02 PM >> STONEY BLUE MD SunFeb 01, 2018 5:02 PM Continues to see Dr. Powers Problem List As Of Date 02/01/2018 Noted Resolved Diabetes mellitus type 2, uncontrolled (HCC) [E*INVALID FOR*09/03/2015 Hyperlipidemia [E78.5] INVALID FOR* Obesity, Class III, BMI 40-49.9 (morbid obesity*INVALID FOR*09/03/2015 Hypothyroid [E03.9] INVALID FOR*09/03/2015 Obstructive sleep apnea [G47.33] INVALID FOR*09/03/2015 Asthma, moderate persistent [J45.40] INVALID FOR*09/03/2015 Albuminuria [R80.9] INVALID FOR*09/03/2015 Vitamin D deficiency [E55.9] INVALID FOR* Faintness [R55] INVALID FOR*09/03/2015 Type 2 diabetes, controlled, with neuropathy (H*INVALID FOR*02/05/2015 PCOS (polycystic ovarian syndrome) [E28.2] INVALID FOR* More... Migraine headache without aura [G43.009] INVALID FOR*09/03/2015 More... Restless legs syndrome (RLS) [G25.81] INVALID FOR*09/03/2015 More... Right ankle instability [M25.371] INVALID FOR*09/03/2015 Left ankle instability [M25.372] INVALID FOR*09/03/2015 Type 2 diabetes mellitus with hyperglycemia (HC* More... Type 2 diabetes mellitus with neurological john* More... Type 2 diabetes mellitus with polyneuropathy (H* Hypoglycemia unawareness associated with type 2* Obesity [E66.9] 09/05/2016 Hypothyroid [E03.9] More... Ovarian cyst, left [N83.202] INVALID FOR* Multiple thyroid nodules [E04.2] INVALID FOR* Bilateral low back pain with sciatica [M54.40] INVALID FOR* Asymptomatic PVCs [I49.3] INVALID FOR* Morbid obesity with BMI of 40.0-44.9, adult (HC*INVALID FOR*05/14/2017 Statin intolerance [Z78.9] INVALID FOR* More... Hypogammaglobulinemia (HCC) [D80.1] INVALID FOR* Recurrent infections [B99.9] INVALID FOR* Allergic rhinitis [J30.9] INVALID FOR* Asthma, well controlled [J45.909] INVALID FOR* MEGHAN on CPAP [G47.33, Z99.89] INVALID FOR* Obesity (BMI 30-39.9) [E66.9] INVALID FOR* Fatty infiltration of liver [K76.0] INVALID FOR* Prescriptions ordered this encounter Disp Refills Start End OLOPATADINE 0.1 % EYE DROPS 1 Garo* 5 02/01/2018 Route: BOTH EYES Sig: Use 1 Drop in both eyes twice daily. Has already tired all the other meds in this class (side effects or lack of efficacy) Medications Discontinued During This Encounter fluconazole (DIFLUCAN) 100 mg tablet 15 t* 0 07/25/2017 02/01/2018 Sig: Take daily for 7 days then may take weekly for 8 weeks or as directed Patient not taking: Reported on 11/02/2017 Disc: Course of therapy completed ACLIDINIUM BROMIDE (TUDORZA PRESSAIR* 02/01/2018 Class: Historical Med Route: INHALATION Sig: Inhale as instructed. Disc: Reason for discontinue is not on file. doxycycline hyclate (VIBRAMYCIN) 100* 02/01/2018 Class: Historical Med Route: ORAL Sig: Take 100 mg by mouth twice daily. Disc: Course of therapy completed LEVALBUTEROL HCL (XOPENEX INHALATION) 02/01/2018 Class: Historical Med Route: NEBULIZATION -UNSPEC Sig: Use 1 Vial via nebulizer every 6 hours as needed. Disc: Reason for discontinue is not on file. olopatadine (PATANOL) 0.1 % ophthalm* 08/15/2016 02/01/2018 Class: Med Update Route: BOTH EYES Sig: Use 1 Drop in both eyes twice daily. (Dr. Díaz--Slitter And Rewinder Machine Operator) Patient not taking: Reported on 02/01/2018 Disc: Reason for discontinue is not on file. Follow-up and Disposition History Recorded Encounter Status:Closed by STONEY BLUE MD on 02/21/18 PROGRESS Observed: 01/22/2018 Status: COMPLETED Source: [place] 6:19 PM [facility] REPOSITORY O ID: [id number] Author: Jessica Partida Service: (none) Author Type: Physician Type: Progress Notes Filed: 01/24/2018 11:02 AM Note Text: Mariana Early is a 37 year old female with a history of allergic rhinitis, recurrent sinusitis, status post nasal septoplasty and sinus surgery, and moderate persistent asthma who presents for a follow-up visit. She also has a history of obstructive sleep apnea and is on CPAP. Her last visit was January 24, 2017. Although she was previously diagnosed with low levels of IgG1 and IgG3 by Dr. Ortiz, immunology evaluation completed in this office after her last visit was normal. She had repeat IgG, IgA a and IgM levels obtained one month ago. Those results were also normal. Absolute eosinophil count was elevated at 990. She complains of facial pain, nasal congestion, rhinorrhea, postnasal drip and sore throat. She has taken 3 courses of Augmentin, 3 courses of Biaxin and is currently taking doxycycline for sinusitis/bronchitis. Patient typically receives subcutaneous allergy immunotherapy as prescribed by [facility] although this was discontinued 2 months ago due to her sinus infections. She feels immunotherapy has been helpful for her. She denies systemic reactions. On CT sinus completed at an outside facility on January 02, 2018, nasal septal perforation was noted. Paranasal sinuses were clear. She is scheduled to have a balloon septoplasty completed on February 01. She has never had allergy testing completed through this office. 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 She would like to establish care with a new flight control manager close to her home. She has not been using Symbicort 2 , Tudorza or Singulair for the last few months as she is out of these medications. She complains of cough, wheezing and chest tightness. Uses albuterol couple times per week for acute symptoms. Avoids use of systemic corticosteroids due to significant hyperglycemia associated with prior use. Denies emergency room visits or hospitalizations for respiratory symptoms since her last visit. She takes Protonix 40 mg once daily as needed with good control of her GERD symptoms. She has not been tolerating her CPAP due to her nasal symptoms. She denies a history of nasal ulcerations. Denies a history of pneumonia/pulmonary infiltrates. Denies a history of foreign travel. Denies diarrhea, melena and hematochezia. Scheduled for bariatric surgery in February,. (From initial visit on January 24, 2017: This is a consultation requested by Dr. Blue for an allergy and immunology evaluation. My final recommendations will be communicated back to the requesting physician by way of shared medical record or letter to requesting physician via US mail. Mariana Early is a 36 year old female with a history of hypogammaglobulinemia who presents to establish care. Previously under the care of Dr. Ortiz who has retired. Patient reports she has a history of low IgG with low subclasses 1 and 3. She has a 2 year history of recurring ear infections and sinus infections. She has taken several courses of antibiotics in the past year for sinusitis and otitis media. She will typically take amoxicillin or Augmentin for 10 days with significant improvement and then recurrence of sxs. She also has taken cephalosporins for these infections. She had a history of pneumonia as a child. Denies episodes of pneumonia as an adult. She has recurrent vaginal candidiasis. Denies a history of cutaneous infections. Denies dental infections. There is no family history of immunodeficiency. Patient did not have varicella as a child nor did she receive the varicella vaccine. Varicella titers obtained by [facility] were negative per the patient. Patient received MMR as a child but has not received this as an adult. She received the Pneumovax in 2012 and tdap In 2011. No prior Prevnar. She has never required treatment with prophylactic antibiotics or antibody replacement therapy. She has a history of allergic rhinitis for which she is receiving subcutaneous allergy immunotherapy as prescribed by Dr. Lyon. She uses Nasacort AQ as needed, Rola-D and Patanol. Reports that regular use of Nasacort AQ results in excessive dryness of the nares. Symptoms have improved somewhat with immunotherapy. Denies systemic reactions. She reports CT sinus completed approximately 1 year ago showed some chronic inflammation. At 18 years old she had a nasal septoplasty and sinus surgery completed. As an adult, she had rhinoplasty and turbinate reduction completed. She has a history of asthma for which she sees Dr. Trevizo in pulmonary medicine. She uses Symbicort 160 and tudorza pressair on a regular basis. Symptoms include intermittent cough, wheezing and shortness of breath. Nocturnal awakenings 2-3 nights per week, sometimes due to cough other times due to dry mouth. Uses albuterol less than once per week for acute symptoms. Denies recent treatment with systemic corticosteroids for respiratory symptoms. No ER visits for asthma in the past year. No prior hospitalizations for respiratory symptoms. She takes Protonix 40 mg daily as needed for heartburn symptoms. Symptoms occur every 2-3 weeks. She notes occasional dry patches of skin. She is listed as allergic to apple, peanuts, tomato and wheat. She ingests apples and peanuts and tolerates these foods without adverse reaction. She will sometimes developed gastrointestinal upset with ingestion of tomato-based foods. She notes increased redness of the bumps on her posterior arms (keratosis pilaris) sometimes after ingesting wheat. No other symptoms. Both laboratory evaluation and biopsy for celiac disease were negative. She has a history of obstructive sleep apnea for which she uses CPAP. REVIEW OF SYSTEMS: Negative for fevers, chills, night sweats and unintentional weight loss. Negative for skin rash and skin lesions All other review of systems negative except for those listed above. PAST MEDICAL HISTORY Diagnosis Date - Asthma Dr. Victorino Trevizo ([facility]) - Dystonia - Elevated LFTs - Fatty infiltration of liver 12/14/2017 - Fibromyalgia - Hyperlipidemia - Hypoglycemia unawareness associated with type 2 diabetes mellitus (HCC) - Hypothyroid - Migraine headache with aura Not always with aura; treated with Botox Injections by Dr. Ellis - Obesity - Obstructive sleep apnea treated with BiPAP Sleep Medicine Doctor--Dr. Lovett - Occipital neuralgia Dr. 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 triamcinolone acetonide (NASACORT) 55 mcg nasal inhaler Use 2 Sprays in the nose once daily. metaxalone (SKELAXIN) 800 mg tablet take 1 tablet by mouth three times a day if needed for pain triamcinolone acetonide (KENALOG) 0.1 % cream Apply 1 application to affected area three times daily. Apply sparingly to area for rash/itching. Magnesium 250 mg tab On Hold ciclopirox (LOPROX) 0.77 % cream Apply 1 application to affected area twice daily. CALCIUM CARBONATE/VITAMIN D3 (VITAMIN D-3 ORAL) Take by mouth. varicella virus vaccine, PF, (VARIVAX) 1,350 unit/0.5 mL injection Give 1 dose then repeat dose in 4 to 8 weeks later glimepiride (AMARYL) 4 mg tablet TAKE 1 TABLET BY MOUTH TWICE DAILY. dulaglutide (TRULICITY) 1.5 mg/0.5 mL pnij Inject 1.5 mL subcutaneously once each week. fluvoxaMINE Maleate (LUVOX) 25 mg tablet Take 1 tablet by mouth daily at bedtime. pantoprazole DR (PROTONIX) 40 mg tablet Take 1 tablet by mouth daily before breakfast. Take on empty stomach, 1/2 hr before meal. TAKING NEEDED NOW enalapril (VASOTEC) 5 mg tablet Take 1 tablet by mouth once daily. metFORMIN ER (GLUCOPHAGE XR) 500 mg 24 hr tablet Take 2 tablets by mouth twice daily. olopatadine (PATANOL) 0.1 % ophthalmic solution Use 1 Drop in both eyes twice daily. 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 LORazepam (ATIVAN) 1 mg tablet Take 1 tablet by mouth twice daily as needed for Anxiety. (Counseling Center provider) CRESTOR 5 mg tablet Take 1 tablet by mouth once daily. ondansetron orally disintegrating (ZOFRAN ODT) 4 mg disintegrating tablet Take 1 tablet by mouth every 8 hours as needed for Nausea/Vomiting. levonorgestrel (MIRENA) 20 mcg/24 hr (5 years) IUD Inserted in office ACLIDINIUM BROMIDE (TUDORZA PRESSAIR INHALATION) Inhale as instructed. Lancets (FREESTYLE LANCETS) lancets Test blood sugar(s) 2 times daily. Dx: DM2 250.00. Insulin: No LEVALBUTEROL HCL (XOPENEX INHALATION) Use 1 Vial via nebulizer every 6 hours as needed. Cholecalciferol, Vitamin D3, 5,000 unit tab Take 1 tablet by mouth once daily. blood sugar diagnostic (FREESTYLE LITE STRIPS) test strip Test blood sugar(s) 2 times daily. Dx: DM2 250.00. Insulin: No Blood-Glucose Meter (FREESTYLE LITE METER) monitoring kit Test sugars 2 time daily and when needed. montelukast (SINGULAIR) 10 mg tablet Take 1 tablet by mouth daily at bedtime. mometasone-formoterol (DULERA) 100-5 mcg/actuation inhaler Inhale 2 Puffs as instructed twice daily. Use with spacer. Rinse mouth out after use. levalbuterol tartrate HFA 45 mcg/actuation inhaler Inhale 2 Puffs as instructed every 4 hours as needed. Use with spacer Nebulizer and Compressor For Neb jose luis Use as directed. Dx: moderate persistent asthma J45.40, disp:lifetime supplies fluconazole (DIFLUCAN) 100 mg tablet Take daily for 7 days then may take weekly for 8 weeks or as directed ALLERGIES: Allergies As of Date: 01/22/2018 Allergen Noted Reaction CIPROFLOXACIN 04/18/2011 Other: See Comments IMITREX [SUMATRIPTAN SUCCINATE] 04/18/2011 GI Upset and Vomiting NICKEL 05/14/2015 Rash, Hives, and Swelling ADHESIVE 04/18/2011 Rash and Other: See Comments ASPIRIN 04/18/2011 GI Upset CORTICOSTEROIDS (GLUCOCORTICOIDS) 08/01/2014 Other: See Comments CYMBALTA [DULOXETINE] 11/28/2013 Intolerance EFFEXOR [VENLAFAXINE] 08/23/2015 Other: See Comments LIPITOR [ATORVASTATIN CALCIUM] 08/26/2014 Hives NARCOTICS [OPIOIDS - MORPHINE JERRICA*11/02/2011 Other: See Comments NIFEDIPINE 08/27/2013 Other: See Comments SULFA (SULFONAMIDE ANTIBIOTICS) 04/18/2011 Other: See Comments TOMATOES 01/26/2017 GI Upset TOPAMAX [TOPIRAMATE] 11/28/2013 Intolerance ULTRAM [TRAMADOL] 08/01/2014 Shortness of Breath WHEAT, WHEAT GERM 01/26/2017 Rash Fully Assessed 01/22/2018 PAST SURGICAL HISTORY Procedure Laterality Date - CAUTER TURBINATE MUCOSA,INTRAMURAL 09/19/2012 Turbinoplasty - Dr. Lyon - PAST SURGICAL HISTORY OF cyst removed from Rt eye lid - PAST SURGICAL HISTORY OF scar tissue removed for breast, left - PAST SURGICAL HISTORY OF cysts from the lower back x 2 - PAST SURGICAL HISTORY OF - PAST SURGICAL HISTORY OF Allergy injections once a week - RHINOPLASTY FOR NOSE DEFORM TIP SEPTUM, OS FAMILY HISTORY: Allergic rhinitis:yes: mom and MGM. Asthma: yes: mom, MGM and cousins. Eczema: yes: M Uncle and potentially on father side (unsure) Cystic fibrosis: no. Immunodeficiency: yes: cousins with auto immune issues. 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 Pets in the home: 8 cats Outdoor animals: 2 sheri cats - just feeds them Tobacco smoke: No exposure in the home. Physical Exam: GENERAL APPEARANCE:Well appearing, alert, in no acute distress, well-hydrated, well nourished. Obese HEENT: NCAT. EYES: conjunctiva and sclera normal. EARS: External ears normal. Canals clear. TM's normal. NOSE/SINUS: Nasal septal perforation. Mucosa normal. No drainage or sinus tenderness. THROAT: no erythema NECK:neck supple, no adenopathy HEART:RRR with normal S1 and S2 ,no murmurs, no gallops, no rubs LUNGS: clear to auscultation bilaterally, no wheezes, rales or rhonchi ABDOMEN:soft, nontender, nondistended, without organomegaly or palpable masses EXTREMITIES:Extremities normal, No deformities, No skin discoloration and No edema SKIN: Fine flesh colored papules on the posterior arms bilaterally ALLERGY SKIN TESTS:Deferred due to recent use of antihistamines. ASSESSMENT/PLAN: 1.) Chronic rhinitis: Aggressive environmental controls Unable to complete allergy skin tests due to recent use of antihistamines. Inhalants RAST panel will be obtained. Continue Nasacort AQ 2 sprays each nostril once daily, and Rola or Rola-D as needed Patient receives subcutaneous allergy immunotherapy as prescribed by [facility] at home. Discussed with the patient at her initial visit that, due to the risk of severe, potentially, life-threatening anaphylactic reaction to immunotherapy, immunotherapy injection should be administered only under the supervision of a physician in a facility that has medication and equipment available to treat an anaphylactic reaction. Patient should be monitored in the office for 30 minutes after each set of injections. 2.) Moderate persistent asthma: Start Dulera 100?5 2 puffs twice daily. Resume use of Singulair 10 mg at bedtime. Continue Xopenex HFA inhaler with spacer 2 puffs or Xopenex 1.25 mg nebulized every 4-6 hours as needed. Pulm consult with Dr. Moseley per patient's request for a provider closer to her home. 3.) Recurrent sinusitis: CT scan results have been requested for review. Continue management per otolaryngology. 4.) Obstructive sleep apnea: Continue CPAP. 5.) Eosinophilia, most likely secondary to her history of asthma and inhalant allergies: IgE level and ANCA will be obtained. Will check repeat AEC 6.) Discussed medication dosage, usage, side effects, and goals of treatment in detail. 7) Patient will be contacted regarding laboratory results and further recommendations regarding follow-up will be made at that time - patient will return sooner should new symptoms or problems arise. Jessica Partida MD CBC AND DIFFERENTIAL Collected: 01/22/2018 Status: F Source: [place] 1:56 PM [facility] REPOSITORY TYPE CODE TESTS RESULT OUT OF REFERENCE UNITS RANGE LAB WBC 3.70-11.00 k/uL WBC High 11.44 LAB RBC 3.90-5.20 m/uL RBC High 5.26 LAB HGB 11.5-15.5 g/dL Hemoglobin 14.4 LAB HCT 36.0-46.0 % Hematocrit 43.9 LAB MCV 80.0-100.0 fL MCV 83.5 LAB MCH 26.0-34.0 pG MCH 27.4 LAB MCHC 30.5-36.0 g/dL MCHC 32.8 LAB RDWCV 11.5-15.0 % RDW-CV 13.5 LAB PLTCT 150-400 k/uL Platelet Count 369 LAB MPV 9.0-12.7 fL MPV 9.1 LAB ANEUT % Neut% 52.9 LAB AANEUT 1.45-7.50 k/uL Abs Neut 6.06 LAB ALYMP % Lymph% 27.3 LAB AALYMP 1.00-4.00 k/uL Abs Lymph 3.12 LAB AMONO % [place]% 7.5 LAB AAMONO <0.87 k/uL Abs [place] 0.86 LAB AEOS % Eosin% 11.3 LAB AAEOS <0.46 k/uL Abs High Eosin 1.29 LAB ABASO % Baso% 1.0 LAB AABASO <0.11 k/uL Abs Baso High 0.11 Performed By: #### CBCDIF #### [facility] [address] [phone] #### IGE, INHALE, ANCA #### [facility] [address] [address] IGE Collected: 01/22/2018 Status: F Source: [place] 1:56 PM [facility] [place] REPOSITORY TYPE CODE TESTS RESULT OUT OF RANGE REFERENCE UNITS LAB IGE <114 kU/L High IgE 188.0 Performed By: #### CBCDIF #### [facility] [address] [phone] #### IGE, INHALE, ANCA #### [address] [address] [employer] Collected: 01/22/2018 Status: F Source: [place] 1:56 PM [facility] REPOSITORY TYPE CODE TESTS RESULT OUT OF REFERENCE UNITS RANGE LAB TIMY <0.35 KU/L Oni Grass IgE <0.35 LAB TIMCL 0 Oni Grass-Class 0 LAB RAHEL <0.35 KU/L Alma Delia Grass IgE <0.35 LAB JUNCL 0 Alma Delia Grass-Class 0 LAB SRAG <0.35 KU/L Short Ragweed IgE <0.35 LAB SRACL 0 Short Ragweed-Class 0 LAB EPLT <0.35 KU/L Honduran Plantain IgE <0.35 LAB EPLCL 0 Eng. Plantain-Class 0 LAB LBQ <0.35 KU/L Lambs Quarters IgE <0.35 LAB LBQCL 0 Ko's Quarts-Class 0 LAB BLDR <0.35 KU/L [place] Tree IgE <0.35 LAB BLDCL 0 [place] Tree-Class 0 LAB OAKT <0.35 KU/L [place] Tree IgE <0.35 LAB OAKCL 0 [place] Tree-Class 0 LAB CATDN <0.35 KU/L Cat Dander IgE <0.35 LAB CTDCL 0 Cat Dander-Class 0 LAB K9D <0.35 KU/L Dog Dander IgE <0.35 LAB K9DCL 0 Dog Dander-Class 0 LAB PNOTA <0.35 KU/L P. chrysogenum IgE <0.35 LAB PNOCL 0 P. chrysogenum IgE 0 LAB CHI <0.35 KU/L Clad herbarum IgE High 0.43 LAB CHCL 0 C.herbarum-Class High 1 LAB AFUMI <0.35 KU/L A fumigatus IgE High 0.59 LAB AFCL 0 A. fumigatus-Class High 1 LAB ATEN <0.35 KU/L Alternariatenuis IgE High 1.79 LAB ATCL 0 A. tenuis-Class High 2 LAB HDUST <0.35 KU/L House Dust (H-S) IgE <0.35 LAB DUSCL 0 House Dust-Class 0 LAB DFRN <0.35 KU/L Derm farinae IgE <0.35 LAB DFRCL 0 D. farinae-Class 0 Performed By: #### CBCDIF #### [facility] [address] [place] [address] #### IGE, INHALE, ANCA #### [address] [address] [email or web address] Collected: Status: F Source: [place] 01/22/2018 1:56 PM [facility] [place] REPOSITORY TYPE CODE TESTS RESULT OUT OF REFERENCE UNITS RANGE LAB CANCAF Negative C-ANCA Fluorescence Negative LAB PANCAF Negative P-ANCA Fluorescence Negative LAB CANCA <1.0 AI Proteinase-3 Ab Test not performed on samples negative by immunofluoresc ence. LAB PANCA <1.0 AI Myeloperoxidase Ab Test not performed on samples negative by immunofluoresc ence. LAB ANCINT ANCA Interpretation Negative for C-ANCA and P-ANCA by indirect immunofluoresc ence. LAB ANCSTF Staff Review Staff review not performed on samples negative by immunofluoresc ence. Performed By: #### CBCDIF #### [facility] [address] [place] [address] #### IGE, INHALE, ANCA #### [address] [address] CBC AND DIFFERENTIAL Collected: 01/22/2018 Status: F Source: [place] 1:56 PM [facility] REPOSITORY TYPE CODE TESTS RESULT OUT OF REFERENCE UNITS RANGE LAB WBC 3.70-11.00 k/uL WBC High 11.44 LAB RBC 3.90-5.20 m/uL RBC High 5.30 LAB HGB 11.5-15.5 g/dL Hemoglobin 14.4 LAB HCT 36.0-46.0 % Hematocrit 44.3 LAB MCV 80.0-100.0 fL MCV 83.6 LAB MCH 26.0-34.0 pG MCH 27.2 LAB MCHC 30.5-36.0 g/dL MCHC 32.5 LAB RDWCV 11.5-15.0 % RDW-CV 13.4 LAB PLTCT 150-400 k/uL Platelet Count 371 LAB MPV 9.0-12.7 fL Low MPV 8.9 LAB ANEUT % Neut% 52.2 LAB AANEUT 1.45-7.50 k/uL Abs Neut 5.98 LAB ALYMP % Lymph% 28.1 LAB AALYMP 1.00-4.00 k/uL Abs Lymph 3.21 LAB AMONO % [place]% 7.9 LAB AAMONO <0.87 k/uL Abs [place] High 0.90 LAB AEOS % Eosin% 10.8 LAB AAEOS <0.46 k/uL Abs High Eosin 1.23 LAB ABASO % Baso% 1.0 LAB AABASO <0.11 k/uL Abs Baso High 0.12 Performed By: #### CBCDIF #### [facility] [address] [facility] [phone] BASIC METABOLIC PANL Collected: 01/22/2018 Status: F Source: [place] 1:56 PM [facility] REPOSITORY TYPE CODE TESTS RESULT OUT OF REFERENCE UNITS RANGE LAB GLU 74-99 mg/dL High Glucose 155 Result Comment: The [place] [employer] (ADA) provides guidance for cutoff values for fasting glucose and random glucose. The ADA defines fasting as no caloric intake for at least 8 hours. Fas ting plasma glucose results between 100 to 125 mg/dL indicate increased risk for diabetes (prediabetes). Fasting plasma glucose results greater than or equal to 126 mg/dL meet the criteria for diagnosis of diabetes. In the absence of unequivocal hyperglycemia, results should be confirmed by repeat testing. In a patient with classic symptoms of hyperglycemia or hyperglycemic crisis, random plasma glucose results greater than or equal to 200 mg/dL meet the criteria for diagnosis of diabetes. Reference: Standards of Medical Care in Diabetes 2016, [place] [employer]. Diabetes Care. 2016.39(Suppl 1). LAB BUN 7-21 mg/dL BUN 9 LAB CRET 0.58-0.96 mg/dL Creatinine Low 0.54 LAB NA 136-144 mmol/L Sodium 139 LAB K 3.7-5.1 mmol/L Potassium 4.7 LAB CL 97-105 mmol/L Chloride 103 LAB CO2 22-30 mmol/L CO2 Low 19 LAB AGAP 9-18 mmol/L Anion Gap 17 LAB CA 8.5-10.2 mg/dL Calcium, Total 9.5 LAB GFRAA eGFR- Amer. >60 LAB GFRNAA . eGFR-All Other Races >60 Result Comment: eGFR (Estimated GFR) Units of measure: mL/min/1.73 meters squared eGFR is derived from the reexpressed MDRD Study equation using the following parameters: serum creatinine, age, gender and race. The creatinine assay has been calibrated to be traceable to IDMS. An eGFR <60 mL/min/1.73m2 for >3 months is consistent with chronic kidney disease. Refer to KDOQI guidelines for clinical interpretation. In patients with unstable renal function, e.g. those with acute kidney injury, the eGFR may not accurately reflect actual GFR. Performed By: #### BMP #### [facility] [address] [place] [address] #### HBA1C #### [place] [address] #### LIPB #### [facility] [address] [place] [address] HEMOGLOBIN A1C Collected: 01/22/2018 Status: F Source: [place] 1:56 PM [facility] [place] REPOSITORY TYPE CODE TESTS RESULT OUT OF REFERENCE UNITS RANGE LAB HGBA1C 4.3-5.6 % High Hemoglobin A1c 9.1 Result Comment: [place] [employer] guidelines indicate that patients with HgbA1c in the range 5.7-6.4% are at increased risk for development of diabetes, and intervention by lifestyle modification may be beneficial. HgbA1c greater or equal to 6.5% is considered diagnostic of diabetes. LAB HBA0 mg/dL Est. Average Glucose 214 Result Comment: eAG: (Estimated average glucose) is a calculated value from HgbA1c and is guest service representative of the average blood glucose level in the last 2-3 month period. Performed By: #### BMP #### [facility] [address] [place] [address] #### HBA1C #### [facility] [address] [place], [place] [address] #### LIPB #### [facility] [address] [facility] [phone] [facility] [address] [place] [address] LIPID PANEL, BASIC Collected: 01/22/2018 Status: F Source: [place] 1:56 PM [facility] REPOSITORY TYPE CODE TESTS RESULT OUT OF REFERENCE UNITS RANGE LAB CHOL <200 mg/dL Cholesterol High 239 Result Comment: <200 mg/dL, Desirable 200-239 mg/dL, Borderline high >239 mg/dL, High LAB TRIGLY <150 mg/dL Triglyceride High 179 Result Comment: <150 mg/dL, Normal 150-199 mg/dL, Borderline high 200-499 mg/dL, High >499 mg/dL, Very high LAB HDL >39 mg/dL HDL-Cholesterol 42 Result Comment: 40-59 mg/dL, Acceptable >59 mg/dL, High: Negative risk factor for coronary heart disease <40 mg/dL, Low: Positive risk factor for coronary heart disease LAB LDL <100 mg/dL LDL-Cholesterol High 161 Result Comment: <100 mg/dL, Optimal 100-129 mg/dL, Near optimal/above optimal 130-159 mg/dL, Borderline high 160-189 mg/dL, High >189 mg/dL, Very high Secondary prevention optimal LDL Cholesterol levels are recommended to be < 70 mg/dL LAB NONHDL <130 mg/dL Non HDL High Cholesterol 197 Result Comment: <130 mg/dL, Optimal 130-159 mg/dL, Near optimal/above optimal 160-189 mg/dL, Borderline high 190-219 mg/dL, High >219 mg/dL, Very high Secondary prevention optimal non HDL Cholesterol levels are recommended to be < 100 mg/dL LAB FT hrs Fasting Time 12 LAB VLDL <30 mg/dL High VLDL Cholesterol 36 LAB TCHDL <5.10 High TC:HDL Ratio 5.69 LAB LDLHDL <2.54 High LDL:HDL Ratio 3.83 Result Comment: Reference: 1. National Cholesterol Education Program ATP III Guideline At-A-Glance Quick Desk Reference: National Heart, Lung, and Blood [place]. National Institutes of Health. 2001: NIH Publication No. 01-3305. 2. An International Atherosclerosis Society position paper: global recommendations for the management of dyslipidemia: executive summary, Atherosclerosis. 2014: 232(2):410-413. Performed By: #### BMP #### [facility] [address] [facility] [phone] #### HBA1C #### [facility] [address] [place] [address] #### LIPB #### [facility] [address] [facility] [phone] [facility] [address] [place] [address] CNOV Observed: 01/22/2018 Status: COMPLETED Source: [place] 1:30 PM [facility] REPOSITORY Office Visit (ALLMED) SHARATHMARIANA ([id number]) 1980 F Date Time Provider Department 01/22/18 1:30 PM JESSICA PARTIDA During your visit today, we recorded the following information about you: Pulse Blood pressure Weight 90/minute 115/74 122 kg Lucinda Jade RN 01/22/2018 1:12 PM Signed Patient here for annual follow up appt. She currently is on antibiotics for a sinus infections. Has been out of asthma medication for past 2-3 months. Jessica Partida MD 01/24/2018 11:02 AM Signed Mariana Sharath is a 37 year old female with a history of allergic rhinitis, recurrent sinusitis, status post nasal septoplasty and sinus surgery, and moderate persistent asthma who presents for a follow-up visit. She also has a history of obstructive sleep apnea and is on CPAP. Her last visit was January 24, 2017. Although she was previously diagnosed with low levels of IgG1 and IgG3 by Dr. Ortiz, immunology evaluation completed in this office after her last visit was normal. She had repeat IgG, IgA a and IgM levels obtained one month ago. Those results were also normal. Absolute eosinophil count was elevated at 990. She complains of facial pain, nasal congestion, rhinorrhea, postnasal drip and sore throat. She has taken 3 courses of Augmentin, 3 courses of Biaxin and is currently taking doxycycline for sinusitis/bronchitis. Patient typically receives subcutaneous allergy immunotherapy as prescribed by [facility] although this was discontinued 2 months ago due to her sinus infections. She feels immunotherapy has been helpful for her. She denies systemic reactions. On CT sinus completed at an outside facility on January 02, 2018, nasal septal perforation was noted. Paranasal sinuses were clear. She is scheduled to have a balloon septoplasty completed on February 01. She has never had allergy testing completed through this office. 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 She would like to establish care with a new flight control manager close to her home. She has not been using Symbicort 2 , Tudorza or Singulair for the last few months as she is out of these medications. She complains of cough, wheezing and chest tightness. Uses albuterol couple times per week for acute symptoms. Avoids use of systemic corticosteroids due to significant hyperglycemia associated with prior use. Denies emergency room visits or hospitalizations for respiratory symptoms since her last visit. She takes Protonix 40 mg once daily as needed with good control of her GERD symptoms. She has not been tolerating her CPAP due to her nasal symptoms. She denies a history of nasal ulcerations. Denies a history of pneumonia/pulmonary infiltrates. Denies a history of foreign travel. Denies diarrhea, melena and hematochezia. Scheduled for bariatric surgery in February,. (From initial visit on January 24, 2017: This is a consultation requested by Dr. Blue for an allergy and immunology evaluation. My final recommendations will be communicated back to the requesting physician by way of shared medical record or letter to requesting physician via US mail. Mariana Early is a 36 year old female with a history of hypogammaglobulinemia who presents to establish care. Previously under the care of Dr. Ortiz who has retired. Patient reports she has a history of low IgG with low subclasses 1 and 3. She has a 2 year history of recurring ear infections and sinus infections. She has taken several courses of antibiotics in the past year for sinusitis and otitis media. She will typically take amoxicillin or Augmentin for 10 days with significant improvement and then recurrence of sxs. She also has taken cephalosporins for these infections. She had a history of pneumonia as a child. Denies episodes of pneumonia as an adult. She has recurrent vaginal candidiasis. Denies a history of cutaneous infections. Denies dental infections. There is no family history of immunodeficiency. Patient did not have varicella as a child nor did she receive the varicella vaccine. Varicella titers obtained by [facility] were negative per the patient. Patient received MMR as a child but has not received this as an adult. She received the Pneumovax in 2012 and tdap In 2011. No prior Prevnar. She has never required treatment with prophylactic antibiotics or antibody replacement therapy. She has a history of allergic rhinitis for which she is receiving subcutaneous allergy immunotherapy as prescribed by Dr. Lyon. She uses Nasacort AQ as needed, Rola-D and Patanol. Reports that regular use of Nasacort AQ results in excessive dryness of the nares. Symptoms have improved somewhat with immunotherapy. Denies systemic reactions. She reports CT sinus completed approximately 1 year ago showed some chronic inflammation. At 18 years old she had a nasal septoplasty and sinus surgery completed. As an adult, she had rhinoplasty and turbinate reduction completed. She has a history of asthma for which she sees Dr. Trevizo in pulmonary medicine. She uses Symbicort 160 and tudorza pressair on a regular basis. Symptoms include intermittent cough, wheezing and shortness of breath. Nocturnal awakenings 2-3 nights per week, sometimes due to cough other times due to dry mouth. Uses albuterol less than once per week for acute symptoms. Denies recent treatment with systemic corticosteroids for respiratory symptoms. No ER visits for asthma in the past year. No prior hospitalizations for respiratory symptoms. She takes Protonix 40 mg daily as needed for heartburn symptoms. Symptoms occur every 2-3 weeks. She notes occasional dry patches of skin. She is listed as allergic to apple, peanuts, tomato and wheat. She ingests apples and peanuts and tolerates these foods without adverse reaction. She will sometimes developed gastrointestinal upset with ingestion of tomato-based foods. She notes increased redness of the bumps on her posterior arms (keratosis pilaris) sometimes after ingesting wheat. No other symptoms. Both laboratory evaluation and biopsy for celiac disease were negative. She has a history of obstructive sleep apnea for which she uses CPAP. REVIEW OF SYSTEMS: Negative for fevers, chills, night sweats and unintentional weight loss. Negative for skin rash and skin lesions All other review of systems negative except for those listed above. PAST MEDICAL HISTORY Diagnosis Date - Asthma Dr. Victorino Trevizo ([facility]) - Dystonia - Elevated LFTs - Fatty infiltration of liver 12/14/2017 - Fibromyalgia - Hyperlipidemia - Hypoglycemia unawareness associated with type 2 diabetes mellitus (HCC) - Hypothyroid - Migraine headache with aura Not always with aura; treated with Botox Injections by Dr. Ellis - Obesity - Obstructive sleep apnea treated with BiPAP Sleep Medicine Doctor--Dr. Lovett - Occipital neuralgia Dr. 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 triamcinolone acetonide (NASACORT) 55 mcg nasal inhaler Use 2 Sprays in the nose once daily. metaxalone (SKELAXIN) 800 mg tablet take 1 tablet by mouth three times a day if needed for pain triamcinolone acetonide (KENALOG) 0.1 % cream Apply 1 application to affected area three times daily. Apply sparingly to area for rash/itching. Magnesium 250 mg tab On Hold ciclopirox (LOPROX) 0.77 % cream Apply 1 application to affected area twice daily. CALCIUM CARBONATE/VITAMIN D3 (VITAMIN D-3 ORAL) Take by mouth. varicella virus vaccine, PF, (VARIVAX) 1,350 unit/0.5 mL injection Give 1 dose then repeat dose in 4 to 8 weeks later glimepiride (AMARYL) 4 mg tablet TAKE 1 TABLET BY MOUTH TWICE DAILY. dulaglutide (TRULICITY) 1.5 mg/0.5 mL pnij Inject 1.5 mL subcutaneously once each week. fluvoxaMINE Maleate (LUVOX) 25 mg tablet Take 1 tablet by mouth daily at bedtime. pantoprazole DR (PROTONIX) 40 mg tablet Take 1 tablet by mouth daily before breakfast. Take on empty stomach, 1/2 hr before meal. TAKING NEEDED NOW enalapril (VASOTEC) 5 mg tablet Take 1 tablet by mouth once daily. metFORMIN ER (GLUCOPHAGE XR) 500 mg 24 hr tablet Take 2 tablets by mouth twice daily. olopatadine (PATANOL) 0.1 % ophthalmic solution Use 1 Drop in both eyes twice daily. 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 LORazepam (ATIVAN) 1 mg tablet Take 1 tablet by mouth twice daily as needed for Anxiety. (Counseling Center provider) CRESTOR 5 mg tablet Take 1 tablet by mouth once daily. ondansetron orally disintegrating (ZOFRAN ODT) 4 mg disintegrating tablet Take 1 tablet by mouth every 8 hours as needed for Nausea/Vomiting. levonorgestrel (MIRENA) 20 mcg/24 hr (5 years) IUD Inserted in office ACLIDINIUM BROMIDE (TUDORZA PRESSAIR INHALATION) Inhale as instructed. Lancets (FREESTYLE LANCETS) lancets Test blood sugar(s) 2 times daily. Dx: DM2 250.00. Insulin: No LEVALBUTEROL HCL (XOPENEX INHALATION) Use 1 Vial via nebulizer every 6 hours as needed. Cholecalciferol, Vitamin D3, 5,000 unit tab Take 1 tablet by mouth once daily. blood sugar diagnostic (FREESTYLE LITE STRIPS) test strip Test blood sugar(s) 2 times daily. Dx: DM2 250.00. Insulin: No Blood-Glucose Meter (FREESTYLE LITE METER) monitoring kit Test sugars 2 time daily and when needed. montelukast (SINGULAIR) 10 mg tablet Take 1 tablet by mouth daily at bedtime. mometasone-formoterol (DULERA) 100-5 mcg/actuation inhaler Inhale 2 Puffs as instructed twice daily. Use with spacer. Rinse mouth out after use. levalbuterol tartrate HFA 45 mcg/actuation inhaler Inhale 2 Puffs as instructed every 4 hours as needed. Use with spacer Nebulizer and Compressor For Neb jose luis Use as directed. Dx: moderate persistent asthma J45.40, disp:lifetime supplies fluconazole (DIFLUCAN) 100 mg tablet Take daily for 7 days then may take weekly for 8 weeks or as directed ALLERGIES: Allergies As of Date: 01/22/2018 Allergen Noted Reaction CIPROFLOXACIN 04/18/2011 Other: See Comments IMITREX [SUMATRIPTAN SUCCINATE] 04/18/2011 GI Upset and Vomiting NICKEL 05/14/2015 Rash, Hives, and Swelling ADHESIVE 04/18/2011 Rash and Other: See Comments ASPIRIN 04/18/2011 GI Upset CORTICOSTEROIDS (GLUCOCORTICOIDS) 08/01/2014 Other: See Comments CYMBALTA [DULOXETINE] 11/28/2013 Intolerance EFFEXOR [VENLAFAXINE] 08/23/2015 Other: See Comments LIPITOR [ATORVASTATIN CALCIUM] 08/26/2014 Hives NARCOTICS [OPIOIDS - MORPHINE JERRICA*11/02/2011 Other: See Comments NIFEDIPINE 08/27/2013 Other: See Comments SULFA (SULFONAMIDE ANTIBIOTICS) 04/18/2011 Other: See Comments TOMATOES 01/26/2017 GI Upset TOPAMAX [TOPIRAMATE] 11/28/2013 Intolerance ULTRAM [TRAMADOL] 08/01/2014 Shortness of Breath WHEAT, WHEAT GERM 01/26/2017 Rash Fully Assessed 01/22/2018 PAST SURGICAL HISTORY Procedure Laterality Date - CAUTER TURBINATE MUCOSA,INTRAMURAL 09/19/2012 Turbinoplasty - Dr. Lyon - PAST SURGICAL HISTORY OF cyst removed from Rt eye lid - PAST SURGICAL HISTORY OF scar tissue removed for breast, left - PAST SURGICAL HISTORY OF cysts from the lower back x 2 - PAST SURGICAL HISTORY OF - PAST SURGICAL HISTORY OF Allergy injections once a week - RHINOPLASTY FOR NOSE DEFORM TIP SEPTUM, OS FAMILY HISTORY: Allergic rhinitis:yes: mom and MGM. Asthma: yes: mom, MGM and cousins. Eczema: yes: M Uncle and potentially on father side (unsure) Cystic fibrosis: no. Immunodeficiency: yes: cousins with auto immune issues. 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 Pets in the home: 8 cats Outdoor animals: 2 sheri cats - just feeds them Tobacco smoke: No exposure in the home. Physical Exam: GENERAL APPEARANCE:Well appearing, alert, in no acute distress, well-hydrated, well nourished. Obese HEENT: NCAT. EYES: conjunctiva and sclera normal. EARS: External ears normal. Canals clear. TM's normal. NOSE/SINUS: Nasal septal perforation. Mucosa normal. No drainage or sinus tenderness. THROAT: no erythema NECK:neck supple, no adenopathy HEART:RRR with normal S1 and S2 ,no murmurs, no gallops, no rubs LUNGS: clear to auscultation bilaterally, no wheezes, rales or rhonchi ABDOMEN:soft, nontender, nondistended, without organomegaly or palpable masses EXTREMITIES:Extremities normal, No deformities, No skin discoloration and No edema SKIN: Fine flesh colored papules on the posterior arms bilaterally ALLERGY SKIN TESTS:Deferred due to recent use of antihistamines. ASSESSMENT/PLAN: 1.) Chronic rhinitis: Aggressive environmental controls Unable to complete allergy skin tests due to recent use of antihistamines. Inhalants RAST panel will be obtained. Continue Nasacort AQ 2 sprays each nostril once daily, and Rola or Rola-D as needed Patient receives subcutaneous allergy immunotherapy as prescribed by [facility] at home. Discussed with the patient at her initial visit that, due to the risk of severe, potentially, life-threatening anaphylactic reaction to immunotherapy, immunotherapy injection should be administered only under the supervision of a physician in a facility that has medication and equipment available to treat an anaphylactic reaction. Patient should be monitored in the office for 30 minutes after each set of injections. 2.) Moderate persistent asthma: Start Dulera 100?5 2 puffs twice daily. Resume use of Singulair 10 mg at bedtime. Continue Xopenex HFA inhaler with spacer 2 puffs or Xopenex 1.25 mg nebulized every 4-6 hours as needed. Pulm consult with Dr. Moseley per patient's request for a provider closer to her home. 3.) Recurrent sinusitis: CT scan results have been requested for review. Continue management per otolaryngology. 4.) Obstructive sleep apnea: Continue CPAP. 5.) Eosinophilia, most likely secondary to her history of asthma and inhalant allergies: IgE level and ANCA will be obtained. Will check repeat AEC 6.) Discussed medication dosage, usage, side effects, and goals of treatment in detail. 7) Patient will be contacted regarding laboratory results and further recommendations regarding follow-up will be made at that time - patient will return sooner should new symptoms or problems arise. Jessica Partida MD Referring Provider: JESSICA PARTIDA [[id number]] Allergies As of Date: 01/22/2018 Noted Allergy Reaction CIPROFLOXACIN 04/18/2011 14 - Other: See Comments Comments: Mother highly allergic to medication IMITREX (SUMATRIPTAN SUCCINATE) 04/18/2011 8 - GI Upset 11 - Vomiting NICKEL 05/14/2015 2 - Rash 4 - Hives 7 - Swelling ADHESIVE 04/18/2011 2 - Rash 14 - Other: See Comments Comments: Pulling of skin ASPIRIN 04/18/2011 8 - GI Upset CORTICOSTEROIDS (GLUCOCORTICOIDS) 08/01/2014 14 - Other: See Comments Comments: Increase in blood sugars CYMBALTA (DULOXETINE) 11/28/2013 5 - Intolerance EFFEXOR (VENLAFAXINE) 08/23/2015 14 - Other: See Comments LIPITOR (ATORVASTATIN CALCIUM) 08/26/2014 4 - Hives NARCOTICS (OPIOIDS - MORPHINE JERRICA*11/02/2011 14 - Other: See Comments Comments: Mood changes/depression worsen/if taking must be monitored closley NIFEDIPINE 08/27/2013 14 - Other: See Comments Comments: Chest pain heart racing and skin flushing SULFA (SULFONAMIDE ANTIBIOTICS) 04/18/2011 14 - Other: See Comments Comments: headaches TOMATOES 01/26/2017 8 - GI Upset TOPAMAX (TOPIRAMATE) 11/28/2013 5 - Intolerance ULTRAM (TRAMADOL) 08/01/2014 12 - Shortness of Breath WHEAT, WHEAT GERM 01/26/2017 2 - Rash Date Reviewed: 01/22/2018 Reviewed by: Jessica Partida - Fully Assessed Reason for Visit: Establish Care [42] Cmt: sick visit Primary Visit Diagnosis:Moderate persistent asthma without complication [J45.40] Other Visit Diagnoses:Chronic rhinitis [J31.0] Chronic sinusitis, unspecified location [J32.9] Order(s):CONSULT TO PULM/CRITICAL CARE [[id number]] Order #: [id number]: 1 CBC + DIFF [SQCBCDIF] Order #: [id number] FUTURE ANTI NEUTRO CYTO AB [SQANCA] Order #: [id number] FUTURE IGE BLD [SQIGE] Order #: [id number] FUTURE ALGN INHALANTS GROUP [SQINHALE] Order #: [id number] FUTURE montelukast (SINGULAIR) 10 mg tabletTake 1 tablet by mouth daily at bedtime.Disp: 30 tabletRfl: 11 mometasone-formoterol (DULERA) 100-5 mcg/actuation inhalerInhale 2 Puffs as instructed twice daily. Use with spacer. Rinse mouth out after use.Disp: 1 InhalerRfl: 11 levalbuterol tartrate HFA 45 mcg/actuation inhalerInhale 2 Puffs as instructed every 4 hours as needed. Use with spacerDisp: 1 InhalerRfl: 1 Nebulizer and Compressor For Neb deviUse as directed. Dx: moderate persistent asthma J45.40, disp:lifetime suppliesDisp: 1 DeviceRfl: 0 Prescriptions as of 01/22/2018 Sig: FEXOFENADINE 180 MG TABLET take 1 tablet by ORAL route * DOXYCYCLINE HYCLATE 100 MG CA* Take 100 mg by mouth twice da* TRIAMCINOLONE ACETONIDE 55 MC* Use 2 Sprays in the nose once* METAXALONE 800 MG TABLET take 1 tablet by mouth three * TRIAMCINOLONE ACETONIDE 0.1 %* Apply 1 application to affect* MAGNESIUM 250 MG TABLET On Hold CICLOPIROX 0.77 % TOPICAL CRE* Apply 1 application to affect* VITAMIN D-3 ORAL Take by mouth. VARICELLA VIRUS VACCINE LIVE * Give 1 dose then repeat dose * GLIMEPIRIDE 4 MG TABLET TAKE 1 TABLET BY MOUTH TWICE * DULAGLUTIDE 1.5 MG/0.5 ML SUB* Inject 1.5 mL subcutaneously * FLUVOXAMINE 25 MG TABLET Take 1 tablet by mouth daily * PANTOPRAZOLE 40 MG TABLET,DEL* Take 1 tablet by mouth daily * ENALAPRIL MALEATE 5 MG TABLET Take 1 tablet by mouth once d* METFORMIN ER 500 MG TABLET,EX* Take 2 tablets by mouth twice* OLOPATADINE 0.1 % EYE DROPS Use 1 Drop in both eyes twice* LEVALBUTEROL 0.63 MG/3 ML LUIS* Use 3 mL via nebulizer every * LORAZEPAM 1 MG TABLET Take 1 tablet by mouth twice * CRESTOR 5 MG TABLET Take 1 tablet by mouth once d* ONDANSETRON 4 MG DISINTEGRATI* Take 1 tablet by mouth every * LEVONORGESTREL 20 MCG/24 HR (* Inserted in office TUDORZA PRESSAIR INHALATION Inhale as instructed. LANCETS Test blood sugar(s) 2 times d* XOPENEX INHALATION Use 1 Vial via nebulizer ever* CHOLECALCIFEROL (VITAMIN D3) * Take 1 tablet by mouth once d* BLOOD SUGAR DIAGNOSTIC STRIPS Test blood sugar(s) 2 times d* * BLOOD-GLUCOSE METER KIT Test sugars 2 time daily and * MONTELUKAST 10 MG TABLET Take 1 tablet by mouth daily * MOMETASONE-FORMOTEROL HFA 100* Inhale 2 Puffs as instructed * LEVALBUTEROL HFA 45 MCG/ACTUA* Inhale 2 Puffs as instructed * NEBULIZER AND COMPRESSOR Use as directed. Dx: moderat* FLUCONAZOLE 100 MG TABLET Take daily for 7 days then ma* Patient not taking: Reported on 11/02/2017 Problem List As Of Date 01/22/2018 Noted Resolved Diabetes mellitus type 2, uncontrolled (HCC) [E*INVALID FOR*09/03/2015 Hyperlipidemia [E78.5] INVALID FOR* Obesity, Class III, BMI 40-49.9 (morbid obesity*INVALID FOR*09/03/2015 Hypothyroid [E03.9] INVALID FOR*09/03/2015 Obstructive sleep apnea [G47.33] INVALID FOR*09/03/2015 Asthma, moderate persistent [J45.40] INVALID FOR*09/03/2015 Albuminuria [R80.9] INVALID FOR*09/03/2015 Vitamin D deficiency [E55.9] INVALID FOR* Faintness [R55] INVALID FOR*09/03/2015 Type 2 diabetes, controlled, with neuropathy (H*INVALID FOR*02/05/2015 PCOS (polycystic ovarian syndrome) [E28.2] INVALID FOR* More... Migraine headache without aura [G43.009] INVALID FOR*09/03/2015 More... Restless legs syndrome (RLS) [G25.81] INVALID FOR*09/03/2015 More... Right ankle instability [M25.371] INVALID FOR*09/03/2015 Left ankle instability [M25.372] INVALID FOR*09/03/2015 Type 2 diabetes mellitus with hyperglycemia (HC* More... Type 2 diabetes mellitus with neurological john* More... Type 2 diabetes mellitus with polyneuropathy (H* Hypoglycemia unawareness associated with type 2* Obesity [E66.9] 09/05/2016 Hypothyroid [E03.9] More... Ovarian cyst, left [N83.202] INVALID FOR* Multiple thyroid nodules [E04.2] INVALID FOR* Bilateral low back pain with sciatica [M54.40] INVALID FOR* Asymptomatic PVCs [I49.3] INVALID FOR* Morbid obesity with BMI of 40.0-44.9, adult (HC*INVALID FOR*05/14/2017 Statin intolerance [Z78.9] INVALID FOR* More... Hypogammaglobulinemia (HCC) [D80.1] INVALID FOR* Recurrent infections [B99.9] INVALID FOR* Allergic rhinitis [J30.9] INVALID FOR* Asthma, well controlled [J45.909] INVALID FOR* MEGHAN on CPAP [G47.33, Z99.89] INVALID FOR* Obesity (BMI 30-39.9) [E66.9] INVALID FOR* Fatty infiltration of liver [K76.0] INVALID FOR* Visit Notes: >> Lucinda Nguyen Jan 22, 2018 1:07 PM Status: Signed Patient here for annual follow up appt. She currently is on antibiotics for a sinus infections. Has been out of asthma medication for past 2-3 months. Prescriptions ordered this encounter Disp Refills Start End MONTELUKAST 10 MG TABLET 30 t* 11 01/22/2018 Route: ORAL Sig: Take 1 tablet by mouth daily at bedtime. MOMETASONE-FORMOTEROL HFA 100 MCG-5 * 1 In* 11 01/22/2018 Route: INHALATION Sig: Inhale 2 Puffs as instructed twice daily. Use with spacer. Rinse mouth out after use. LEVALBUTEROL HFA 45 MCG/ACTUATION AE* 1 In* 1 01/22/2018 Route: INHALATION Sig: Inhale 2 Puffs as instructed every 4 hours as needed. Use with spacer NEBULIZER AND COMPRESSOR 1 De* 0 01/22/2018 Class: Print RX Sig: Use as directed. Dx: moderate persistent asthma J45.40, disp:lifetime supplies Medications Discontinued During This Encounter budesonide-formoterol (SYMBICORT) 16* 01/22/2018 Class: Historical Med Route: INHALATION Sig: Inhale 2 Puffs as instructed twice daily. Disc: Reason for discontinue is not on file. Encounter Status:Closed by JESSICA PARTIDA MD on 01/24/18 PROGRESS Observed: 01/20/2018 Status: COMPLETED Source: [place] 2:54 PM [facility] [place] REPOSITORY HNO ID: [id number] Author: Jenna Brown) Basim Service: (none) Author Type: Physician Plant Operator Control Room Operator Type: Progress Notes Filed: 01/20/2018 2:57 PM Note Text: Subjective HPI Patient presents with cough congestion and sore throat over the past 3 days. Her significant other is here with similar symptoms. She has been on doxycycline over the past 5 days due to chronic sinusitis. She states she was on Augmentin and Biaxin prior to that. She is supposed to have a balloon last seen in January. She denies chest pain or shortness of breath. Really more of the sore throat that has been bothering her. She has Robitussin with codeine for cough at home. Review of Systems Constitutional: Negative for chills and fever. HENT: Positive for congestion, ear pain, sinus pain and sore throat. Eyes: Negative. Respiratory: Positive for cough. Negative for sputum production, shortness of breath and wheezing. Cardiovascular: Negative. Gastrointestinal: Negative. Genitourinary: Negative. Skin: Negative. All other systems reviewed and are negative. PAST MEDICAL HISTORY Diagnosis Date - Asthma Dr. Victorino Trevizo ([facility]) - Dystonia - Elevated LFTs - Fatty infiltration of liver 12/14/2017 - Fibromyalgia - Hyperlipidemia - Hypoglycemia unawareness associated with type 2 diabetes mellitus (HCC) - Hypothyroid - Migraine headache with aura Not always with aura; treated with Botox Injections by Dr. Ellis - Obesity - Obstructive sleep apnea treated with BiPAP Sleep Medicine Doctor--Dr. Lovett - Occipital neuralgia Dr. 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 Apply sparingly to area for rash/itching. Disp: 30 g Rfl: 1 Magnesium 250 mg tab On Hold Disp: Rfl: ciclopirox (LOPROX) 0.77 % cream Apply 1 application to affected area twice daily. Disp: 30 g Rfl: 2 fluconazole (DIFLUCAN) 100 mg tablet Take daily for 7 days then may take weekly for 8 weeks or as directed (Patient not taking: Reported on 11/02/2017 ) Disp: 15 tablet Rfl: 0 CALCIUM CARBONATE/VITAMIN D3 (VITAMIN D-3 ORAL) Take by mouth. Disp: Rfl: varicella virus vaccine, PF, (VARIVAX) 1,350 unit/0.5 mL injection Give 1 dose then repeat dose in 4 to 8 weeks later Disp: 1 Each Rfl: 1 glimepiride (AMARYL) 4 mg tablet TAKE 1 TABLET BY MOUTH TWICE DAILY. Disp: 60 tablet Rfl: 0 dulaglutide (TRULICITY) 1.5 mg/0.5 mL pnij Inject 1.5 mL subcutaneously once each week. Disp: 4 Pen Rfl: 3 fluvoxaMINE Maleate (LUVOX) 25 mg tablet Take 1 tablet by mouth daily at bedtime. Disp: Rfl: pantoprazole DR (PROTONIX) 40 mg tablet Take 1 tablet by mouth daily before breakfast. Take on empty stomach, 1/2 hr before meal. TAKING NEEDED NOW Disp: Rfl: enalapril (VASOTEC) 5 mg tablet Take 1 tablet by mouth once daily. Disp: 30 tablet Rfl: 3 metFORMIN ER (GLUCOPHAGE XR) 500 mg 24 hr tablet Take 2 tablets by mouth twice daily. Disp: 120 tablet Rfl: 3 olopatadine (PATANOL) 0.1 % ophthalmic solution Use 1 Drop in both eyes twice daily. (Dr. Díaz--Slitter And Rewinder Machine Operator) Disp: Rfl: levalbuterol (XOPENEX) 0.63 mg/3 mL nebulizer solution Use 3 mL via nebulizer every 4 hours as needed for Wheezing/Shortness of Breath. Disp: Rfl: LORazepam (ATIVAN) 1 mg tablet Take 1 tablet by mouth twice daily as needed for Anxiety. (Counseling Center provider) Disp: Rfl: CRESTOR 5 mg tablet Take 1 tablet by mouth once daily. Disp: 30 tablet Rfl: 11 ondansetron orally disintegrating (ZOFRAN ODT) 4 mg disintegrating tablet Take 1 tablet by mouth every 8 hours as needed for Nausea/Vomiting. Disp: 20 tablet Rfl: 0 levonorgestrel (MIRENA) 20 mcg/24 hr (5 years) IUD Inserted in office Disp: 1 Each Rfl: 0 ACLIDINIUM BROMIDE (TUDORZA PRESSAIR INHALATION) Inhale as instructed. Disp: Rfl: Lancets (FREESTYLE LANCETS) lancets Test blood sugar(s) 2 times daily. Dx: DM2 250.00. Insulin: No Disp: 1 Each Rfl: 11 LEVALBUTEROL HCL (XOPENEX INHALATION) Use 1 Vial via nebulizer every 6 hours as needed. Disp: Rfl: Cholecalciferol, Vitamin D3, 5,000 unit tab Take 1 tablet by mouth once daily. Disp: Rfl: 0 blood sugar diagnostic (FREESTYLE LITE STRIPS) test strip Test blood sugar(s) 2 times daily. Dx: DM2 250.00. Insulin: No Disp: 50 Strip Rfl: 5 Blood-Glucose Meter (FREESTYLE LITE METER) monitoring kit Test sugars 2 time daily and when needed. Disp: 1 Each Rfl: 0 budesonide-formoterol (SYMBICORT) 160-4.5 mcg/actuation inhaler Inhale 2 Puffs as instructed twice daily. Disp: Rfl: No current facility-administered medications for this visit. PAST SURGICAL HISTORY Procedure Laterality Date - CAUTER TURBINATE MUCOSA,INTRAMURAL 09/19/2012 Turbinoplasty - Dr. Lyon - PAST SURGICAL HISTORY OF cyst removed from Rt eye lid - PAST SURGICAL HISTORY OF scar tissue removed for breast, left - PAST SURGICAL HISTORY OF cysts from the lower back x 2 - PAST SURGICAL HISTORY OF - PAST SURGICAL HISTORY OF Allergy injections once a week - RHINOPLASTY FOR NOSE DEFORM TIP SEPTUM, OS FAMILY HISTORY Problem Relation Age of Onset - Diabetes Mother patient states her mother is no longer diabetic - Thyroid Mother - Cataract Mother - Diabetes Maternal Grandmother - Stroke Maternal Grandmother - Heart Maternal Grandmother afib, tach - other (fibromyalgia) Other multiple female relatives - other (polycystic ovarian syndrome) Other multiple female relatives - other (autism spectrum) Other uncle, cousins, self Social History Substance Use Topics - Smoking status: Never Smoker - Smokeless tobacco: Never Used - Alcohol use 1.5 oz/week 1 Glasses of Wine (5oz) per week BP 118/80 Pulse 95 Temp 36.7 ?C (98 ?F) Resp 14 Wt 120.7 kg (266 lb) SpO2 95% BMI 39.40 kg/m? Objective Physical Exam Constitutional: She is oriented to person, place, and time and well-developed, well-nourished, and in no distress. HENT: Head: Normocephalic and atraumatic. Right Ear: Tympanic membrane, external ear and ear canal normal. Left Ear: Tympanic membrane, external ear and ear canal normal. Nose: Mucosal edema and rhinorrhea present. Mouth/Throat: Uvula is midline and mucous membranes are normal. Posterior oropharyngeal edema and posterior oropharyngeal erythema present. No oropharyngeal exudate or tonsillar abscesses. Minimal erythema and swelling to the tonsils bilaterally. No exudate. No sign of peritonsillar abscess. Neck: Normal range of motion. Neck supple. Cardiovascular: Normal rate, regular rhythm and normal heart sounds. Pulmonary/Chest: Effort normal and breath sounds normal. Lymphadenopathy: She has no cervical adenopathy. Neurological: She is alert and oriented to person, place, and time. Skin: Skin is warm and dry. No rash noted. Psychiatric: Affect and judgment normal. Nursing note and vitals reviewed. ASSESSMENT/PLAN: 1. Sore throat - ICD9: 462, ICD10: J02.9 (primary diagnosis) - suspect viral - Rapid Strep negative in the office today . - Discussed supportive care treatment with fluids, rest and analgesia. - RAPID STREP TEST B/O 2. Viral URI - ICD9: 465.9, ICD10: J06.9 - Discussed viral etiology and rationale for treatment. - Symptomatic treatment with prn analgesia - Supportive care with fluids and rest TORO Villanueva Observed: 01/20/2018 Status: COMPLETED Source: [place] 1:15 PM [facility] REPOSITORY Office Visit ([facility]) MARIANA EARLY ([id number]) 1980 F Date Time Provider Department 01/20/18 1:15 PM JENNA ROWLEY (PA) [facility] During your visit today, we recorded the following information about you: Temperature Pulse Respiration Blood pressure 98 degrees 95/minute 14/minute 118/80 Weight 120.7 kg Jenna Rowley PA-C 01/20/2018 2:57 PM Signed Subjective HPI Patient presents with cough congestion and sore throat over the past 3 days. Her significant other is here with similar symptoms. She has been on doxycycline over the past 5 days due to chronic sinusitis. She states she was on Augmentin and Biaxin prior to that. She is supposed to have a balloon last seen in January. She denies chest pain or shortness of breath. Really more of the sore throat that has been bothering her. She has Robitussin with codeine for cough at home. Review of Systems Constitutional: Negative for chills and fever. HENT: Positive for congestion, ear pain, sinus pain and sore throat. Eyes: Negative. Respiratory: Positive for cough. Negative for sputum production, shortness of breath and wheezing. Cardiovascular: Negative. Gastrointestinal: Negative. Genitourinary: Negative. Skin: Negative. All other systems reviewed and are negative. PAST MEDICAL HISTORY Diagnosis Date - Asthma Dr. Victorino Trevizo ([facility]) - Dystonia - Elevated LFTs - Fatty infiltration of liver 12/14/2017 - Fibromyalgia - Hyperlipidemia - Hypoglycemia unawareness associated with type 2 diabetes mellitus (HCC) - Hypothyroid - Migraine headache with aura Not always with aura; treated with Botox Injections by Dr. Ellis - Obesity - Obstructive sleep apnea treated with BiPAP Sleep Medicine Doctor--Dr. Lovett - Occipital neuralgia Dr. 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 Apply sparingly to area for rash/itching. Disp: 30 g Rfl: 1 Magnesium 250 mg tab On Hold Disp: Rfl: ciclopirox (LOPROX) 0.77 % cream Apply 1 application to affected area twice daily. Disp: 30 g Rfl: 2 fluconazole (DIFLUCAN) 100 mg tablet Take daily for 7 days then may take weekly for 8 weeks or as directed (Patient not taking: Reported on 11/02/2017 ) Disp: 15 tablet Rfl: 0 CALCIUM CARBONATE/VITAMIN D3 (VITAMIN D-3 ORAL) Take by mouth. Disp: Rfl: varicella virus vaccine, PF, (VARIVAX) 1,350 unit/0.5 mL injection Give 1 dose then repeat dose in 4 to 8 weeks later Disp: 1 Each Rfl: 1 glimepiride (AMARYL) 4 mg tablet TAKE 1 TABLET BY MOUTH TWICE DAILY. Disp: 60 tablet Rfl: 0 dulaglutide (TRULICITY) 1.5 mg/0.5 mL pnij Inject 1.5 mL subcutaneously once each week. Disp: 4 Pen Rfl: 3 fluvoxaMINE Maleate (LUVOX) 25 mg tablet Take 1 tablet by mouth daily at bedtime. Disp: Rfl: pantoprazole DR (PROTONIX) 40 mg tablet Take 1 tablet by mouth daily before breakfast. Take on empty stomach, 1/2 hr before meal. TAKING NEEDED NOW Disp: Rfl: enalapril (VASOTEC) 5 mg tablet Take 1 tablet by mouth once daily. Disp: 30 tablet Rfl: 3 metFORMIN ER (GLUCOPHAGE XR) 500 mg 24 hr tablet Take 2 tablets by mouth twice daily. Disp: 120 tablet Rfl: 3 olopatadine (PATANOL) 0.1 % ophthalmic solution Use 1 Drop in both eyes twice daily. (Dr. Díaz--Slitter And Rewinder Machine Operator) Disp: Rfl: levalbuterol (XOPENEX) 0.63 mg/3 mL nebulizer solution Use 3 mL via nebulizer every 4 hours as needed for Wheezing/Shortness of Breath. Disp: Rfl: LORazepam (ATIVAN) 1 mg tablet Take 1 tablet by mouth twice daily as needed for Anxiety. (Counseling Center provider) Disp: Rfl: CRESTOR 5 mg tablet Take 1 tablet by mouth once daily. Disp: 30 tablet Rfl: 11 ondansetron orally disintegrating (ZOFRAN ODT) 4 mg disintegrating tablet Take 1 tablet by mouth every 8 hours as needed for Nausea/Vomiting. Disp: 20 tablet Rfl: 0 levonorgestrel (MIRENA) 20 mcg/24 hr (5 years) IUD Inserted in office Disp: 1 Each Rfl: 0 ACLIDINIUM BROMIDE (TUDORZA PRESSAIR INHALATION) Inhale as instructed. Disp: Rfl: Lancets (FREESTYLE LANCETS) lancets Test blood sugar(s) 2 times daily. Dx: DM2 250.00. Insulin: No Disp: 1 Each Rfl: 11 LEVALBUTEROL HCL (XOPENEX INHALATION) Use 1 Vial via nebulizer every 6 hours as needed. Disp: Rfl: Cholecalciferol, Vitamin D3, 5,000 unit tab Take 1 tablet by mouth once daily. Disp: Rfl: 0 blood sugar diagnostic (FREESTYLE LITE STRIPS) test strip Test blood sugar(s) 2 times daily. Dx: DM2 250.00. Insulin: No Disp: 50 Strip Rfl: 5 Blood-Glucose Meter (FREESTYLE LITE METER) monitoring kit Test sugars 2 time daily and when needed. Disp: 1 Each Rfl: 0 budesonide-formoterol (SYMBICORT) 160-4.5 mcg/actuation inhaler Inhale 2 Puffs as instructed twice daily. Disp: Rfl: No current facility-administered medications for this visit. PAST SURGICAL HISTORY Procedure Laterality Date - CAUTER TURBINATE MUCOSA,INTRAMURAL 09/19/2012 Turbinoplasty - Dr. Lyon - PAST SURGICAL HISTORY OF cyst removed from Rt eye lid - PAST SURGICAL HISTORY OF scar tissue removed for breast, left - PAST SURGICAL HISTORY OF cysts from the lower back x 2 - PAST SURGICAL HISTORY OF - PAST SURGICAL HISTORY OF Allergy injections once a week - RHINOPLASTY FOR NOSE DEFORM TIP SEPTUM, OS FAMILY HISTORY Problem Relation Age of Onset - Diabetes Mother patient states her mother is no longer diabetic - Thyroid Mother - Cataract Mother - Diabetes Maternal Grandmother - Stroke Maternal Grandmother - Heart Maternal Grandmother afib, tach - other (fibromyalgia) Other multiple female relatives - other (polycystic ovarian syndrome) Other multiple female relatives - other (autism spectrum) Other uncle, cousins, self Social History Substance Use Topics - Smoking status: Never Smoker - Smokeless tobacco: Never Used - Alcohol use 1.5 oz/week 1 Glasses of Wine (5oz) per week BP 118/80 Pulse 95 Temp 36.7 ?C (98 ?F) Resp 14 Wt 120.7 kg (266 lb) SpO2 95% BMI 39.40 kg/m? Objective Physical Exam Constitutional: She is oriented to person, place, and time and well-developed, well-nourished, and in no distress. HENT: Head: Normocephalic and atraumatic. Right Ear: Tympanic membrane, external ear and ear canal normal. Left Ear: Tympanic membrane, external ear and ear canal normal. Nose: Mucosal edema and rhinorrhea present. Mouth/Throat: Uvula is midline and mucous membranes are normal. Posterior oropharyngeal edema and posterior oropharyngeal erythema present. No oropharyngeal exudate or tonsillar abscesses. Minimal erythema and swelling to the tonsils bilaterally. No exudate. No sign of peritonsillar abscess. Neck: Normal range of motion. Neck supple. Cardiovascular: Normal rate, regular rhythm and normal heart sounds. Pulmonary/Chest: Effort normal and breath sounds normal. Lymphadenopathy: She has no cervical adenopathy. Neurological: She is alert and oriented to person, place, and time. Skin: Skin is warm and dry. No rash noted. Psychiatric: Affect and judgment normal. Nursing note and vitals reviewed. ASSESSMENT/PLAN: 1. Sore throat - ICD9: 462, ICD10: J02.9 (primary diagnosis) - suspect viral - Rapid Strep negative in the office today . - Discussed supportive care treatment with fluids, rest and analgesia. - RAPID STREP TEST B/O 2. Viral URI - ICD9: 465.9, ICD10: J06.9 - Discussed viral etiology and rationale for treatment. - Symptomatic treatment with prn analgesia - Supportive care with fluids and rest Jenna Rowley PA-C Referring Provider: SELF [200] Allergies As of Date: 01/20/2018 Noted Allergy Reaction CIPROFLOXACIN 04/18/2011 14 - Other: See Comments Comments: Mother highly allergic to medication IMITREX (SUMATRIPTAN SUCCINATE) 04/18/2011 8 - GI Upset 11 - Vomiting NICKEL 05/14/2015 2 - Rash 4 - Hives 7 - Swelling ADHESIVE 04/18/2011 2 - Rash 14 - Other: See Comments Comments: Pulling of skin ASPIRIN 04/18/2011 8 - GI Upset CORTICOSTEROIDS (GLUCOCORTICOIDS) 08/01/2014 14 - Other: See Comments Comments: Increase in blood sugars CYMBALTA (DULOXETINE) 11/28/2013 5 - Intolerance EFFEXOR (VENLAFAXINE) 08/23/2015 14 - Other: See Comments LIPITOR (ATORVASTATIN CALCIUM) 08/26/2014 4 - Hives NARCOTICS (OPIOIDS - MORPHINE JERRICA*11/02/2011 14 - Other: See Comments Comments: Mood changes/depression worsen/if taking must be monitored closley NIFEDIPINE 08/27/2013 14 - Other: See Comments Comments: Chest pain heart racing and skin flushing SULFA (SULFONAMIDE ANTIBIOTICS) 04/18/2011 14 - Other: See Comments Comments: headaches TOMATOES 01/26/2017 8 - GI Upset TOPAMAX (TOPIRAMATE) 11/28/2013 5 - Intolerance ULTRAM (TRAMADOL) 08/01/2014 12 - Shortness of Breath WHEAT, WHEAT GERM 01/26/2017 2 - Rash Date Reviewed: 11/02/2017 Reviewed by: Staci De Leon Ma - Fully Assessed Reason for Visit: Cough [28] Sore Throat [200] Nasal Congestion [235] Primary Visit Diagnosis:Sore throat [J02.9] Other Visit Diagnosis:Viral URI [J06.9] Order(s):RAPID STREP TEST B/O [[id number]] Order #: [id number] Prescriptions as of 01/20/2018 Sig: METAXALONE 800 MG TABLET take 1 tablet by mouth three * TRIAMCINOLONE ACETONIDE 0.1 %* Apply 1 application to affect* MAGNESIUM 250 MG TABLET On Hold CICLOPIROX 0.77 % TOPICAL CRE* Apply 1 application to affect* FLUCONAZOLE 100 MG TABLET Take daily for 7 days then ma* Patient not taking: Reported on 11/02/2017 VITAMIN D-3 ORAL Take by mouth. VARICELLA VIRUS VACCINE LIVE * Give 1 dose then repeat dose * GLIMEPIRIDE 4 MG TABLET TAKE 1 TABLET BY MOUTH TWICE * DULAGLUTIDE 1.5 MG/0.5 ML SUB* Inject 1.5 mL subcutaneously * FLUVOXAMINE 25 MG TABLET Take 1 tablet by mouth daily * PANTOPRAZOLE 40 MG TABLET,DEL* Take 1 tablet by mouth daily * ENALAPRIL MALEATE 5 MG TABLET Take 1 tablet by mouth once d* METFORMIN ER 500 MG TABLET,EX* Take 2 tablets by mouth twice* OLOPATADINE 0.1 % EYE DROPS Use 1 Drop in both eyes twice* LEVALBUTEROL 0.63 MG/3 ML LUIS* Use 3 mL via nebulizer every * LORAZEPAM 1 MG TABLET Take 1 tablet by mouth twice * CRESTOR 5 MG TABLET Take 1 tablet by mouth once d* ONDANSETRON 4 MG DISINTEGRATI* Take 1 tablet by mouth every * LEVONORGESTREL 20 MCG/24 HR (* Inserted in office TUDORZA PRESSAIR INHALATION Inhale as instructed. LANCETS Test blood sugar(s) 2 times d* XOPENEX INHALATION Use 1 Vial via nebulizer ever* CHOLECALCIFEROL (VITAMIN D3) * Take 1 tablet by mouth once d* BLOOD SUGAR DIAGNOSTIC STRIPS Test blood sugar(s) 2 times d* * BLOOD-GLUCOSE METER KIT Test sugars 2 time daily and * * BUDESONIDE-FORMOTEROL HFA 160* Inhale 2 Puffs as instructed * Problem List As Of Date 01/20/2018 Noted Resolved Diabetes mellitus type 2, uncontrolled (HCC) [E*INVALID FOR*09/03/2015 Hyperlipidemia [E78.5] INVALID FOR* Obesity, Class III, BMI 40-49.9 (morbid obesity*INVALID FOR*09/03/2015 Hypothyroid [E03.9] INVALID FOR*09/03/2015 Obstructive sleep apnea [G47.33] INVALID FOR*09/03/2015 Asthma, moderate persistent [J45.40] INVALID FOR*09/03/2015 Albuminuria [R80.9] INVALID FOR*09/03/2015 Vitamin D deficiency [E55.9] INVALID FOR* Faintness [R55] INVALID FOR*09/03/2015 Type 2 diabetes, controlled, with neuropathy (H*INVALID FOR*02/05/2015 PCOS (polycystic ovarian syndrome) [E28.2] INVALID FOR* More... Migraine headache without aura [G43.009] INVALID FOR*09/03/2015 More... Restless legs syndrome (RLS) [G25.81] INVALID FOR*09/03/2015 More... Right ankle instability [M25.371] INVALID FOR*09/03/2015 Left ankle instability [M25.372] INVALID FOR*09/03/2015 Type 2 diabetes mellitus with hyperglycemia (HC* More... Type 2 diabetes mellitus with neurological john* More... Type 2 diabetes mellitus with polyneuropathy (H* Hypoglycemia unawareness associated with type 2* Obesity [E66.9] 09/05/2016 Hypothyroid [E03.9] More... Ovarian cyst, left [N83.202] INVALID FOR* Multiple thyroid nodules [E04.2] INVALID FOR* Bilateral low back pain with sciatica [M54.40] INVALID FOR* Asymptomatic PVCs [I49.3] INVALID FOR* Morbid obesity with BMI of 40.0-44.9, adult (HC*INVALID FOR*05/14/2017 Statin intolerance [Z78.9] INVALID FOR* More... Hypogammaglobulinemia (HCC) [D80.1] INVALID FOR* Recurrent infections [B99.9] INVALID FOR* Allergic rhinitis [J30.9] INVALID FOR* Asthma, well controlled [J45.909] INVALID FOR* MEGHAN on CPAP [G47.33, Z99.89] INVALID FOR* Obesity (BMI 30-39.9) [E66.9] INVALID FOR* Fatty infiltration of liver [K76.0] INVALID FOR* Encounter Status:Closed by JENNA ROWLEY PA-C on 01/20/18 CNPTOUTREACH Observed: 01/15/2018 Status: COMPLETED Source: [place] 12:00 AM [facility] REPOSITORY Patient Outreach ([facility]) MARIANA EARLY ([id number]) 1980 F Date Time Provider Department 01/15/18 [facility] BLUE [facility] During your visit today, we recorded the following information about you: Allergies As of Date: 01/15/2018 Noted Allergy Reaction CIPROFLOXACIN 04/18/2011 14 - Other: See Comments Comments: Mother highly allergic to medication IMITREX (SUMATRIPTAN SUCCINATE) 04/18/2011 8 - GI Upset 11 - Vomiting NICKEL 05/14/2015 2 - Rash 4 - Hives 7 - Swelling ADHESIVE 04/18/2011 2 - Rash 14 - Other: See Comments Comments: Pulling of skin ASPIRIN 04/18/2011 8 - GI Upset CORTICOSTEROIDS (GLUCOCORTICOIDS) 08/01/2014 14 - Other: See Comments Comments: Increase in blood sugars CYMBALTA (DULOXETINE) 11/28/2013 5 - Intolerance EFFEXOR (VENLAFAXINE) 08/23/2015 14 - Other: See Comments LIPITOR (ATORVASTATIN CALCIUM) 08/26/2014 4 - Hives NARCOTICS (OPIOIDS - MORPHINE JERRICA*11/02/2011 14 - Other: See Comments Comments: Mood changes/depression worsen/if taking must be monitored closley NIFEDIPINE 08/27/2013 14 - Other: See Comments Comments: Chest pain heart racing and skin flushing SULFA (SULFONAMIDE ANTIBIOTICS) 04/18/2011 14 - Other: See Comments Comments: headaches TOMATOES 01/26/2017 8 - GI Upset TOPAMAX (TOPIRAMATE) 11/28/2013 5 - Intolerance ULTRAM (TRAMADOL) 08/01/2014 12 - Shortness of Breath WHEAT, WHEAT GERM 01/26/2017 2 - Rash Date Reviewed: 11/02/2017 Reviewed by: Staci De Leon Ma - Fully Assessed Visit Diagnosis:Medication management [Z79.899] Order(s):ALBUMIN/CREAT RATIO RND UR [SQUACR] Order #: [id number] FUTURE BASIC METABOLIC PNL [SQBMP] Order #: [id number] FUTURE LIPID PANEL BASIC [SQLIPB] Order #: [id number] FUTURE HGB A1C [GPMSN5F] Order #: [id number] FUTURE Prescriptions as of 01/15/2018 Sig: * BLOOD-GLUCOSE METER KIT Test sugars 2 time daily and * CHOLECALCIFEROL (VITAMIN D3) * Take 1 tablet by mouth once d* CICLOPIROX 0.77 % TOPICAL CRE* Apply 1 application to affect* CRESTOR 5 MG TABLET Take 1 tablet by mouth once d* DULAGLUTIDE 1.5 MG/0.5 ML SUB* Inject 1.5 mL subcutaneously * ENALAPRIL MALEATE 5 MG TABLET Take 1 tablet by mouth once d* FLUVOXAMINE 25 MG TABLET Take 1 tablet by mouth daily * GLIMEPIRIDE 4 MG TABLET TAKE 1 TABLET BY MOUTH TWICE * LANCETS Test blood sugar(s) 2 times d* LEVALBUTEROL 0.63 MG/3 ML LUIS* Use 3 mL via nebulizer every * LEVONORGESTREL 20 MCG/24 HR (* Inserted in office LORAZEPAM 1 MG TABLET Take 1 tablet by mouth twice * METAXALONE 800 MG TABLET take 1 tablet by mouth three * METFORMIN ER 500 MG TABLET,EX* Take 2 tablets by mouth twice* ONDANSETRON 4 MG DISINTEGRATI* Take 1 tablet by mouth every * PANTOPRAZOLE 40 MG TABLET,DEL* Take 1 tablet by mouth daily * TRIAMCINOLONE ACETONIDE 0.1 %* Apply 1 application to affect* VARICELLA VIRUS VACCINE LIVE * Give 1 dose then repeat dose * Patient not taking: Reported on 02/01/2018 X TUDORZA PRESSAIR INHALATION Inhale as instructed. X BLOOD SUGAR DIAGNOSTIC STRIPS Test blood sugar(s) 2 times d* X * BUDESONIDE-FORMOTEROL HFA 160* Inhale 2 Puffs as instructed * X VITAMIN D-3 ORAL Take by mouth. X FLUCONAZOLE 100 MG TABLET Take daily for 7 days then ma* Patient not taking: Reported on 11/02/2017 X XOPENEX INHALATION Use 1 Vial via nebulizer ever* X MAGNESIUM 250 MG TABLET On Hold Patient not taking: Reported on 02/01/2018 X OLOPATADINE 0.1 % EYE DROPS Use 1 Drop in both eyes twice* Patient not taking: Reported on 02/01/2018 Problem List As Of Date 01/15/2018 Noted Resolved Diabetes mellitus type 2, uncontrolled (HCC) [E*INVALID FOR*09/03/2015 Hyperlipidemia [E78.5] INVALID FOR* Obesity, Class III, BMI 40-49.9 (morbid obesity*INVALID FOR*09/03/2015 Hypothyroid [E03.9] INVALID FOR*09/03/2015 Obstructive sleep apnea [G47.33] INVALID FOR*09/03/2015 Asthma, moderate persistent [J45.40] INVALID FOR*09/03/2015 Albuminuria [R80.9] INVALID FOR*09/03/2015 Vitamin D deficiency [E55.9] INVALID FOR* Faintness [R55] INVALID FOR*09/03/2015 Type 2 diabetes, controlled, with neuropathy (H*INVALID FOR*02/05/2015 PCOS (polycystic ovarian syndrome) [E28.2] INVALID FOR* More... Migraine headache without aura [G43.009] INVALID FOR*09/03/2015 More... Restless legs syndrome (RLS) [G25.81] INVALID FOR*09/03/2015 More... Right ankle instability [M25.371] INVALID FOR*09/03/2015 Left ankle instability [M25.372] INVALID FOR*09/03/2015 Type 2 diabetes mellitus with hyperglycemia (HC* More... Type 2 diabetes mellitus with neurological john* More... Type 2 diabetes mellitus with polyneuropathy (H* Hypoglycemia unawareness associated with type 2* Obesity [E66.9] 09/05/2016 Hypothyroid [E03.9] More... Ovarian cyst, left [N83.202] INVALID FOR* Multiple thyroid nodules [E04.2] INVALID FOR* Bilateral low back pain with sciatica [M54.40] INVALID FOR* Asymptomatic PVCs [I49.3] INVALID FOR* Morbid obesity with BMI of 40.0-44.9, adult (HC*INVALID FOR*05/14/2017 Statin intolerance [Z78.9] INVALID FOR* More... Hypogammaglobulinemia (HCC) [D80.1] INVALID FOR* Recurrent infections [B99.9] INVALID FOR* Allergic rhinitis [J30.9] INVALID FOR* Asthma, well controlled [J45.909] INVALID FOR* MEGHAN on CPAP [G47.33, Z99.89] INVALID FOR* Obesity (BMI 30-39.9) [E66.9] INVALID FOR* Fatty infiltration of liver [K76.0] INVALID FOR* Encounter Status:Closed by ZAC, PRODUSER on 02/15/18 CNCO Observed: 01/11/2018 Status: COMPLETED Source: [place] 12:00 AM [facility] REPOSITORY Letter Text [facility] [address], [place] [address] 01/11/2018 THIS IS A PRESCRIPTION FOR HANDICAPPED PARKING PERMIT Re: Mariana Early [address] [address] The above named person requires a disability parking placard. DURATION: LIFETIME EXPIRATION: RENEW EVERY 6 MONTHS Sincerely, Purvi CARMICHAEL Observed: 01/10/2018 Status: COMPLETED Source: [place] 12:00 AM [facility] REPOSITORY [facility] SHARATHMARIANA CRABTREE ([id number]) 1980 F Date Time Provider Department [facility] During your visit today, we recorded the following information about you: Larisa Crabtree, RN, RN 01/10/2018 3:34 PM Signed Pt now has to get her handicap placard renewed every six months and needs a new letter. Pt requesting to have the letter complete as soon as possible because pt will soon. Purvi Travis APRN.CNS 01/10/2018 4:37 PM Signed I do not see that we provided her with a handicap placard/letter for the DMV. Why is she in need of a handicap placard? Craole Wisdom LPN 01/11/2018 10:42 AM Signed Previous handicap placard/letter found in past letters. New letter with updated renewal was printed, signed and mailed to patient. Patient notified. Grecia Forrest Psr 01/15/2018 3:36 PM Addendum Leonie from the [place] [facility] [employer] is calling the patient is waiting, Leonie needs the letter changed and faxed [phone]. Take off the letter for the placard - Renew Every 6 months. Please just leave on the letter: Duration: Lifetime. Any questions, call Leonie at: [phone]. Purvi Travis APRN.CNS 01/15/2018 3:42 PM Signed Sent per request previously, resending with changes requested. Purvi Travis APRN.CNS 01/15/2018 3:42 PM Signed Addended by: PURVI MCCALL on: 01/15/2018 03:42 PM Modules accepted: Orders Allergies As of Date: 01/10/2018 Noted Allergy Reaction CIPROFLOXACIN 04/18/2011 14 - Other: See Comments Comments: Mother highly allergic to medication IMITREX (SUMATRIPTAN SUCCINATE) 04/18/2011 8 - GI Upset 11 - Vomiting NICKEL 05/14/2015 2 - Rash 4 - Hives 7 - Swelling ADHESIVE 04/18/2011 2 - Rash 14 - Other: See Comments Comments: Pulling of skin ASPIRIN 04/18/2011 8 - GI Upset CORTICOSTEROIDS (GLUCOCORTICOIDS) 08/01/2014 14 - Other: See Comments Comments: Increase in blood sugars CYMBALTA (DULOXETINE) 11/28/2013 5 - Intolerance EFFEXOR (VENLAFAXINE) 08/23/2015 14 - Other: See Comments LIPITOR (ATORVASTATIN CALCIUM) 08/26/2014 4 - Hives NARCOTICS (OPIOIDS - MORPHINE JERRICA*11/02/2011 14 - Other: See Comments Comments: Mood changes/depression worsen/if taking must be monitored closley NIFEDIPINE 08/27/2013 14 - Other: See Comments Comments: Chest pain heart racing and skin flushing SULFA (SULFONAMIDE ANTIBIOTICS) 04/18/2011 14 - Other: See Comments Comments: headaches TOMATOES 01/26/2017 8 - GI Upset TOPAMAX (TOPIRAMATE) 11/28/2013 5 - Intolerance ULTRAM (TRAMADOL) 08/01/2014 12 - Shortness of Breath WHEAT, WHEAT GERM 01/26/2017 2 - Rash Date Reviewed: 11/02/2017 Reviewed by: Staci De Leon Ma - Fully Assessed Reason for Visit: handicap placardOther] [Other] Primary Visit Diagnosis:Difficulty walking [R26.2] Order(s):PARKING FOR HANDICAPPED [5453997] Order #: [id number] Prescriptions as of 01/10/2018 Sig: METAXALONE 800 MG TABLET take 1 tablet by mouth three * TRIAMCINOLONE ACETONIDE 0.1 %* Apply 1 application to affect* MAGNESIUM 250 MG TABLET On Hold CICLOPIROX 0.77 % TOPICAL CRE* Apply 1 application to affect* FLUCONAZOLE 100 MG TABLET Take daily for 7 days then ma* Patient not taking: Reported on 11/02/2017 VITAMIN D-3 ORAL Take by mouth. VARICELLA VIRUS VACCINE LIVE * Give 1 dose then repeat dose * GLIMEPIRIDE 4 MG TABLET TAKE 1 TABLET BY MOUTH TWICE * DULAGLUTIDE 1.5 MG/0.5 ML SUB* Inject 1.5 mL subcutaneously * FLUVOXAMINE 25 MG TABLET Take 1 tablet by mouth daily * PANTOPRAZOLE 40 MG TABLET,DEL* Take 1 tablet by mouth daily * ENALAPRIL MALEATE 5 MG TABLET Take 1 tablet by mouth once d* METFORMIN ER 500 MG TABLET,EX* Take 2 tablets by mouth twice* OLOPATADINE 0.1 % EYE DROPS Use 1 Drop in both eyes twice* LEVALBUTEROL 0.63 MG/3 ML LUIS* Use 3 mL via nebulizer every * LORAZEPAM 1 MG TABLET Take 1 tablet by mouth twice * CRESTOR 5 MG TABLET Take 1 tablet by mouth once d* ONDANSETRON 4 MG DISINTEGRATI* Take 1 tablet by mouth every * LEVONORGESTREL 20 MCG/24 HR (* Inserted in office TUDORZA PRESSAIR INHALATION Inhale as instructed. LANCETS Test blood sugar(s) 2 times d* XOPENEX INHALATION Use 1 Vial via nebulizer ever* CHOLECALCIFEROL (VITAMIN D3) * Take 1 tablet by mouth once d* BLOOD SUGAR DIAGNOSTIC STRIPS Test blood sugar(s) 2 times d* * BLOOD-GLUCOSE METER KIT Test sugars 2 time daily and * * BUDESONIDE-FORMOTEROL HFA 160* Inhale 2 Puffs as instructed * Problem List As Of Date 01/10/2018 Noted Resolved Diabetes mellitus type 2, uncontrolled (HCC) [E*INVALID FOR*09/03/2015 Hyperlipidemia [E78.5] INVALID FOR* Obesity, Class III, BMI 40-49.9 (morbid obesity*INVALID FOR*09/03/2015 Hypothyroid [E03.9] INVALID FOR*09/03/2015 Obstructive sleep apnea [G47.33] INVALID FOR*09/03/2015 Asthma, moderate persistent [J45.40] INVALID FOR*09/03/2015 Albuminuria [R80.9] INVALID FOR*09/03/2015 Vitamin D deficiency [E55.9] INVALID FOR* Faintness [R55] INVALID FOR*09/03/2015 Type 2 diabetes, controlled, with neuropathy (H*INVALID FOR*02/05/2015 PCOS (polycystic ovarian syndrome) [E28.2] INVALID FOR* More... Migraine headache without aura [G43.009] INVALID FOR*09/03/2015 More... Restless legs syndrome (RLS) [G25.81] INVALID FOR*09/03/2015 More... Right ankle instability [M25.371] INVALID FOR*09/03/2015 Left ankle instability [M25.372] INVALID FOR*09/03/2015 Type 2 diabetes mellitus with hyperglycemia (HC* More... Type 2 diabetes mellitus with neurological john* More... Type 2 diabetes mellitus with polyneuropathy (H* Hypoglycemia unawareness associated with type 2* Obesity [E66.9] 09/05/2016 Hypothyroid [E03.9] More... Ovarian cyst, left [N83.202] INVALID FOR* Multiple thyroid nodules [E04.2] INVALID FOR* Bilateral low back pain with sciatica [M54.40] INVALID FOR* Asymptomatic PVCs [I49.3] INVALID FOR* Morbid obesity with BMI of 40.0-44.9, adult (HC*INVALID FOR*05/14/2017 Statin intolerance [Z78.9] INVALID FOR* More... Hypogammaglobulinemia (HCC) [D80.1] INVALID FOR* Recurrent infections [B99.9] INVALID FOR* Allergic rhinitis [J30.9] INVALID FOR* Asthma, well controlled [J45.909] INVALID FOR* MEGHAN on CPAP [G47.33, Z99.89] INVALID FOR* Obesity (BMI 30-39.9) [E66.9] INVALID FOR* Fatty infiltration of liver [K76.0] INVALID FOR* Encounter Status:Closed by CAROLE WISDOM LPN on 01/11/18 SINUS/FACIAL BONE Observed: 01/02/2018 Status: F Source: [place] 6:55 AM [facility] REPOSITORY [facility] Imaging Services [address] [place] [address] Sinus/Facial Bone MR#: [id number] Acct: [id number] Name: MARIANA EARLY Rep #: [id number] : 1980 F 37 From: Thang Falk PCP: Stoney Blue MD Status: REG CLI Study: Sinus/Facial Bone Date of Exam: 01/02/18 Exam# [id number] Ordering Dr: Porfirio Lyon MD STUDY: CT MAXILLOFACIAL SINUSES REASON FOR EXAM: Female, 37 years old. Sinusitis RADIATION DOSAGE (If Supplied By Facility): CTDIvol = ( 29.38 ) mGy, DLP = ( 415.23 ) mGycm TECHNIQUE: The patient was scanned in a multi detector CT scanner. High resolution axial imaging was performed without the administration of intravenous contrast material. Sagittal and coronal images were reconstructed. Individualized dose optimization techniques were used for this CT. COMPARISON: 12/20/2015 FINDINGS: FRONTAL SINUSES: Normal aeration, without mucosal inflammatory disease. ETHMOIDAL SINUSES: Normal aeration, without mucosal inflammatory disease. MAXILLARY SINUSES: Normal aeration, without mucosal inflammatory disease. SPHENOIDAL SINUSES: Normal aeration, without mucosal inflammatory disease. There is patency of the bilateral maxillary infundibuli with normal uncinate processes, ethmoid bullae, and hiatus semilunaris. Normal bilateral middle turbinates. Normal bilateral inferior turbinates. There is a hole in the nasal septum. There is patency of the bilateral nasal airways. The visualized osseous structures are normal. The visualized bilateral orbital contents are normal. CT/Sinus/Facial Bone IMPRESSION: Perforated nasal septum. This is unchanged from the prior study. There is NO acute sinusitis. The ostiomeatal units are patent. Electronically Signed: Thang Falk MD at 7:32 EST , Service support , CC: Porfirio Lyon MD; Stoney Blue MD Monorail Crane Operator: Signed Observed: 12/21/2017 Status: F Source: [place] CULTURE, [place] 3:25 PM [facility] REPOSITORY Gram Stain Gram Stain No White Blood Cells No organisms seen Nasoph. Cult Gram positive vashti suggestive of a diptheroid. There are no CLSI standards for interpretation of this Drug/Organism combination. PURE CULTURE ORGANISM 1: Gram positive vashti Amount Growth 3+ Performed By: #### M100.0900 #### [facility] [address], [address] CBC AND DIFFERENTIAL Collected: 12/14/2017 Status: F Source: [place] 3:29 PM [facility] REPOSITORY TYPE CODE TESTS RESULT OUT OF REFERENCE UNITS RANGE LAB WBC 3.70-11.00 k/uL WBC High 14.00 LAB RBC 3.90-5.20 m/uL RBC 4.75 LAB HGB 11.5-15.5 g/dL Hemoglobin 13.4 LAB HCT 36.0-46.0 % Hematocrit 41.3 LAB MCV 80.0-100.0 fL MCV 86.9 LAB MCH 26.0-34.0 pG MCH 28.2 LAB MCHC 30.5-36.0 g/dL MCHC 32.4 LAB RDWCV 11.5-15.0 % RDW-CV 13.0 LAB PLTCT 150-400 k/uL Platelet Count 396 LAB MPV 9.0-12.7 fL MPV 9.7 LAB ANEUT % Neut% 55.5 LAB AANEUT 1.45-7.50 k/uL Abs Neut High 7.78 LAB ALYMP % Lymph% 31.8 LAB AALYMP 1.00-4.00 k/uL Abs High Lymph 4.45 LAB AMONO % [place]% 5.1 LAB AAMONO <0.87 k/uL Abs [place] 0.71 LAB AEOS % Eosin% 7.1 LAB AAEOS <0.46 k/uL Abs High Eosin 0.99 LAB ABASO % Baso% 0.5 LAB AABASO <0.11 k/uL Abs Baso 0.07 LAB AUNRBC 0 /100 WBC NRBCs 0.0 LAB ABNRBC <0.01 k/uL Absolute nRBC <0.01 LAB DTYP DTYPE Auto Diff Performed By: #### CBCDIF #### [facility] [address] [place], [place] [address] IGA Collected: 12/14/2017 Status: F Source: [place] 3:29 PM [facility] REPOSITORY TYPE CODE TESTS RESULT OUT OF RANGE REFERENCE UNITS LAB IGA 78-391 mg/dL IgA 143 Performed By: #### IGA, IGG, IGM #### [facility] [address] [place], [place] [address] IGG Collected: 12/14/2017 Status: F Source: [place] 3:29 PM [facility] REPOSITORY TYPE CODE TESTS RESULT OUT OF RANGE REFERENCE UNITS LAB IGG 717-1411 mg/dL IgG 766 Performed By: #### IGA, IGG, IGM #### [facility] [address] [place], [place] [address] IGM Collected: 12/14/2017 Status: F Source: [place] 3:29 PM [facility] REPOSITORY TYPE CODE TESTS RESULT OUT OF RANGE REFERENCE UNITS LAB IGM 53-334 mg/dL IgM 90 Performed By: #### IGA, IGG, IGM #### [facility] [address] [place], [place] [address] DIAG MAMM W/CAD, Observed: 11/27/2017 Status: F Source: [place] B[place] 2:09 PM [facility] REPOSITORY [facility] Imaging Services [address] [place] [address] DIAG MAMM W/CAD, BILAT MR#: [id number] Acct: [id number] Name: MARIANA EARLY Rep #: [id number] : 1980 F 37 From: Jared Salazar MD PCP: Stoney Blue MD Status: REG CLI Study: DIAG MAMM W/CAD, BILAT Date of Exam: 11/27/17 Exam# [id number] Ordering Dr: Florence Monaco MD MAMMOGRAPHY - BILATERAL DIAGNOSTIC REASON FOR EXAM: Female, 37 years old. Right breast lump. PERTINENT HISTORY: Non-contributory. TECHNIQUE: Digital bilateral breast santa (3D mammographic acquisition) in the CC and MLO projections. 2-D mediolateral oblique (MLO) and craniocaudad (CC) views of both breasts were obtained. CAD: Full Field Digital Mammography with Computer Added Detection was performed. COMPARISON: None. Baseline examination. FINDINGS: Breast Composition: There are scattered areas of fibroglandular density. There are no dominant masses or suspicious calcifications. No other significant abnormalities are identified. BI/DIAG MAMM W/CAD, BILAT IMPRESSION: Negative diagnostic mammogram. With the patient's history of a palpable right breast lump, correlation with ultrasound is recommended. ASSESSMENT CATEGORY: BIRADS Category 0: Incomplete. Need additional imaging evaluation. A letter regarding these results will be sent to the patient by the facility within 30 days. Approximately 10% of breast cancers are not detected by mammography. A normal mammogram should not delay biopsy of a clinically suspicious abnormality. Electronically Signed: Jared Salazar MD at 15:44 EDT Tel [phone], Service support , CC: Stoney Blue MD; Florence Merida MD Monorail Crane Operator: Signed BREAST LIMITED Observed: 11/27/2017 Status: F Source: [place] UN[place] 2:09 PM [facility] REPOSITORY [facility] Imaging Services [address] [place] [address] Breast Limited Unilateral MR#: [id number] Acct: [id number] Name: MARIANA EARLY Rep #: [id number] : 1980 F 37 From: Jared Salazar MD PCP: Stoney Blue MD Status: REG CLI Study: Breast Limited Unilateral Date of Exam: 11/27/17 Exam# [id number] Ordering Dr: Florence Monaco MD STUDY: ULTRASOUND BREAST - RIGHT REASON FOR EXAM: Female, 37 years old. Palpable lump in the right breast. TECHNIQUE: Axial and longitudinal images of the RIGHT breast were performed with a high resolution ultrasound transducer. COMPARISON: Comparison is made with prior mammogram done earlier in the day. FINDINGS: RIGHT Breast: The area of concern was examined by ultrasound. No solid or cystic mass lesion is seen. US/Breast Limited Unilateral IMPRESSION: Unremarkable sonographic examination. Routine annual mammographic follow-up is recommended. ASSESSMENT CATEGORY: BIRADS Category 1: Negative. A letter regarding these results will be sent to the patient by the facility within 30 days. Electronically Signed: Jared Salazar MD at 15:45 EDT Tel [phone], Service support , CC: Stoney Blue MD; Florence Merida MD Monorail Crane Operator: Signed LIPID PROFILE Collected: 11/19/2017 Status: F Source: [facility] 3:11 PM [place] REPOS[place] TYPE CODE TESTS RESULT OUT OF REFERENCE UNITS RANGE LAB CHOLL 100-199 MG/DL CHOLESTEROL High 224 LAB TRIGL <150 MG/DL TRIGLYCERIDES High 217 LAB HDL 40-60 MG/DL HDL 41 LAB LDL 0-100 MG/DL LDL High 140 LAB VLDL 5.0-25.0 MG/DL VLDL High 43 LAB CHRAT RATIO CHOL/HDL RATIO 5.46 Result Comment: RISK TOTAL/HDL RATIO MEN WOMEN 1/2 AVERAGE 3.43 3.27 AVERAGE 4.97 4.44 2X AVERAGE 9.55 7.05 3X AVERAGE 23.99 11.04 Performed By: #### LIP2 #### Testing performed at [address] [address] #### [id number] #### Testing performed at [facility] VIT D, 1,25 DIHYDROX Collected: 11/19/2017 Status: F Source: [facility] 3:11 PM [place] REPOSITORY TYPE CODE TESTS RESULT OUT OF RANGE REFERENCE UNITS LAB [id number] 19.9-79.3 pg/mL VIT. D 32.1 1,25 Result Comment: PERFORMED AT [facility] Performed By: #### LIP2 #### Testing performed at [address] [address] #### [id number] #### Testing performed at [facility] CBC(NO DIFF) Collected: 11/09/2017 Status: F [facility] [place] REPOSITORY TYPE CODE TESTS RESULT OUT OF REFERENCE UNITS RANGE LAB WBC 3.6-11.0 /cmm WBC High COUNT 16.4 LAB RBC 4.0-5.4 /cmm RBC COUNT 5.37 LAB HGB 12.0-16.0 G/DL HEMOGLOBIN 14.9 LAB HCT 36.0-48.0 % HEMATOCRIT 45.4 LAB MCV 80.0-100.0 FL MCV 84.6 LAB MCH 26.0-35.0 PG MCH 27.8 LAB MCHC 27.0-37.0 G/DL MCHC 32.8 LAB RDW 11.5-14.5 % RDW 13.9 LAB PLTC 130.0-400.0 /cmm PLATELET COUNT 337 LAB MPV 7.4-11.0 FL MPV 8.3 Performed By: #### HEMOG, CMPF, FE2, B12, TSH2 #### [place] [address] #### LVB1 #### Testing performed at [facility] CMP FASTING Collected: 11/09/2017 Status: F Source: [facility] 8:33 AM [place] TYPE CODE TESTS RESULT OUT OF REFERENCE UNITS RANGE LAB GLF 70-100 MG/DL High GLUCOSE 232 FASTING Result Comment: NORMAL <100 mg/dL PREDIABETES 101-126 mg/dL DIABETES 126 mg/dL or higher LAB BUN 7-20 MG/DL BLOOD UREA 12 NITROGEN LAB CRET 0.52-1.04 MG/DL CREATININE SERUM 0.7 LAB NA 136-145 MMOL/L SODIUM 140 LAB K 3.5-5.1 MMOL/L POTASSIUM 4.6 LAB CL 98-107 MMOL/L CHLORIDE 107 LAB CA 8.4-10.2 MG/DL CALCIUM 9.5 LAB TP 6.3-8.2 GM/DL TOTAL PROTEIN 7.7 LAB ALB 3.5-5.0 G/dl ALBUMIN 4.2 LAB TBIL 0.2-1.2 MG/DL BILIRUBIN TOTAL 0.4 LAB AST 15-41 IU/L AST 38 LAB ALKP 38-126 IU/L ALK 46 PHOSPHATASE LAB CO2 22-30 MMOL/L CO2 20 Low LAB AG 1.3-2.2 RATIO A:G RATIO Low 1.2 LAB ALT 14-54 IU/L ALT 52 LAB GFR ml/min/1.73 sq.m EST. GFR,Non >60 LAB GFRB ml/min/1.73 sq.m EST. GFR, >60 Syrian LAB GFRCOM GFR Information Average GFR for 30-39 years old = 109. Result Comment: Chronic Kidney disease, GFR = <60. Kidney failure, GFR = <15. The GFR estimate is not adjusted for extreme body surface area or acute process, nor has it been validated for women or ethnic groups other than and . Performed By: #### HEMOG, CMPF, FE2, B12, TSH2 #### [place] [address] #### LVB1 #### Testing performed at [facility] IRON Collected: 11/09/2017 Status: F [facility]: [facility] [place] REPOS[place] TYPE CODE TESTS RESULT OUT OF RANGE REFERENCE UNITS LAB IRON 37-170 UG/DL IRON 55 Performed By: #### HEMOG, CMPF, FE2, B12, TSH2 #### Testing performed at [place] [id number] #### LVB1 #### Testing performed at [facility] VITAMIN B12 Collected: 11/09/2017 Status: F Source: [facility] [employer] 8:33 AM [place] REPOS[place] TYPE CODE TESTS RESULT OUT OF REFERENCE UNITS RANGE LAB B12 180-914 PG/ML VITAMIN B12 296 Performed By: #### HEMOG, CMPF, FE2, B12, TSH2 #### Testing performed at [place] [id number] #### LVB1 #### Testing performed at [facility] TSH Collected: 11/09/2017 Status: F [facility] [place] TYPE CODE TESTS RESULT OUT OF RANGE REFERENCE UNITS LAB TSH2 0.45-5.33 uIU/ML TSH 2.014 Performed By: #### HEMOG, CMPF, FE2, B12, TSH2 #### Testing performed at [place] [id number] #### LVB1 #### Testing performed at [facility] VIT.B1 THIAMINE-BLD Collected: 11/09/2017 Status: F Source: [employer] [facility] 8:33 AM [place] REPOS[place] TYPE CODE TESTS RESULT OUT OF RANGE REFERENCE UNITS LAB XVB1 66.5-200.0 nmol/L VIT.B1 96.4 THIAMINE-BLD Result Comment: (NOTE) This test was developed and its performance characteristics determined by [facility]. It has not been cleared or approved by the Food and Drug Administration. PERFORMED AT [facility] Performed By: #### HEMOG, CMPF, FE2, B12, TSH2 #### Testing performed at [place] [id number] #### LVB1 #### Testing performed at [facility] HEMOGLOBIN A1C Collected: 11/09/2017 Status: F Source: [employer] 8:33 AM [place] REPOS[place] TYPE CODE TESTS RESULT OUT OF RANGE REFERENCE UNITS LAB HA1C <6 % High HGB A1C 8.3 Result Comment: NORMAL <5.7% PREDIABETES 5.7-6.4% DIABETES 6.5% OR HIGHER LAB EAG mg/dL ESTIMATED AVERAGE GLUCOSE 192 Performed By: #### HA1CT #### Testing performed at [address] [address] 25 0H VITAMIN D Collected: 11/09/2017 Status: F Source: [facility] 8:33 AM [place] REPOS[place] TYPE CODE TESTS RESULT OUT OF REFERENCE UNITS RANGE LAB VITD >30 NG/ML Low 25 0H VITAMIN D 25.0 LEVEL Result Comment: DEFICIENT <20 NG/ML INSUFFICIENT 20-<30 NG/ML SUFFICIENT 30-100 NG/ML POTENTIAL TOXICITY >100 NG/ML Performed By: #### VITD #### Testing performed at [address] [address] DISCHARGE INSTRUCTION Observed: 11/03/2017 Status: F Source: [place] 11:09 PM [facility] REPOSITORY [facility] Medical Records Department [facility] [place] [address] Discharge Instruction 11/03/17 2308 MR#: [id number] Acct: [id number] Name: MARIANA EARLY Rep #: [id number] : 1980 37 From: Carmelo Jimenez MD PCP: Stoney Blue MD Status: REG ER ED Disposition - Plan for ED Patient: Chief Complaint: Other, Pain/Inj Referrals: Stoney Blue MD [Primary Care Provider] - Additional Instructions: You were seen due to right jaw pain. This was likely related to your recent endoscopy procedure. We do not see any evidence of mass or infection or other complications of the procedure such as perforation. Use Tylenol or anti-inflammatory such as ibuprofen or Aleve for pain. Follow-up with your physicians. Return for new or worsening symptoms. What to do if you have Problems For any increased pain, shortness of breath, bleeding, nausea or vomiting, chest pain, or any unexpected problems, contact your Primary Care Provider. Call [facility] ([phone]) or report to the closest Emergency Room. Call 911 if necessary. 11/03/172308 <Electronically signed by Carmelo Jimenez MD> Date Carmelo Jimenez MD Cosigner Signature (If Indicated): Date CC: Stoney Blue MD EMERGENCY DEPARTMENT Observed: 11/03/2017 Status: F Source: [place] SUMMARY 11:07 PM [facility] [place] REPOSITORY [facility] Medical Records Department [address] [place] [id number] Emergency Department Summary 11/03/17 2303 MR#: [id number] Acct: [id number] Name: MARIANA EARLY Rep #: [id number] : 1980 37 From: Carmelo Jimenez MD PCP: Stoney Blue MD Status: REG ER - ER Visit Summary Date of Service: 11/03/17 Chief Complaint: Jaw pain History of Present Illness: The patient is a 37 F who presents with jaw pain. The patient recently had an EGD 2 days ago. Since the day the procedure she has had pain at her right jaw. This is worse when she opens her mouth or presses on it. She states the pain makes her nauseated. She reports chills but no fevers. She was seen in urgent care and told to take Tylenol for pain and it was attributed to the positioning and her mouth being open with the procedure itself. Physical Examination: Afebrile vitals are stable Moist mucous membranes Patient has tenderness at the angle of the right mandible I do not appreciate any mass or soft tissue swelling she does not have trismus her speech is normal she has no dental tenderness no fluctuance no drainage no erythema Heart regular rate and rhythm Lungs are clear Abdomen soft Alert Test Results: BMP normal. CT of the neck shows borderline cervical lymph node but no other acute process. Emergency Department Course and Treatment: Initially a CT of the soft tissue of the neck with IV contrast was ordered. I obtain CT imaging to rule out any complication of the EGD such as perforation. There was significant difficulty with IV access. A BMP has been ordered only to evaluate renal function prior to IV contrast. With an IV start we were able to obtain blood but we are not able to obtain an IV. I do not feel IV contrast was critical for evaluation so CT without contrast was ordered which is unremarkable and showed findings as above. Patient is resting comfortably on reevaluation. She had been treated with oral Zofran and intramuscular Toradol. Patient was advised to follow-up as outpatient. She understands to return for new or worsening symptoms and was discharged home. Treatment Plan: [] Disposition: Discharge Impression: Right jaw pain This note was generated with The Original SoupMan dictation software. It may contain incorrect words, spelling, and punctuation that were not noted in review of the chart prior to signing ED Disposition - Plan for ED Patient: Chief Complaint: Other, Pain/Inj Referrals: Stoney Blue MD [Primary Care Provider] - What to do if you have Problems For any increased pain, shortness of breath, bleeding, nausea or vomiting, chest pain, or any unexpected problems, contact your Primary Care Provider. Call [facility] ([phone]) or report to the closest Emergency Room. Call 911 if necessary. 11/03/17 9441 <Electronically signed by Carmelo Jimenez MD> Date Carmelo Jimenez MD Cosigner Signature (If Indicated): Date CC: Stoney Blue MD SOFT TISSUE NECK Observed: 11/03/2017 Status: F Source: [place] WITHOUT CONTR 9:39 PM [facility] [place] REPOSITORY [facility] Imaging Services [address] [place] [address] Soft Tissue Neck without Contr MR#: [id number] Acct: [id number] Name: MARIANA EARLY Rep #: [id number] : 1980 F 37 From: Thang Falk PCP: Stoney Blue MD Status: REG ER Study: Soft Tissue Neck without Contr Date of Exam: 11/03/17 Exam# [id number] Ordering Dr: Carmelo Jimenez MD STUDY: CT SOFT TISSUE NECK WITHOUT CONTRAST REASON FOR EXAM: Female, 37 years old. Neck pain RADIATION DOSAGE (If Supplied By Facility): CTDIvol = ( 24.80 ) mGy, DLP = ( 736.97 ) mGycm TECHNIQUE: The patient was scanned in a multi-detector CT scanner. High resolution transaxial imaging was performed without the administration of intravenous contrast material. Sagittal and coronal images were reconstructed. Individualized dose optimization techniques were used for this CT. COMPARISON: None. FINDINGS: Normal bilateral parotid glands. Normal bilateral french polisher spaces. Normal bilateral parapharyngeal spaces. Normal bilateral carotid spaces. Normal bilateral sublingual and submandibular glands and spaces. Normal visualized nasopharynx. Normal retropharyngeal space. Normal perivertebral space. Normal visualized bilateral faucial tonsils. The visualized tongue, tongue base and oropharynx are normal. There are minimally enlarged lymph nodes of the neck, with preservation of normal terrell architecture, consistent with a reactive lymph hyperplasia. There is no demonstrated solid or cystic mass lesion. Normal epiglottis, bilateral vallecula and hypopharynx. The pre-epiglottic and paraglottic adipose spaces are normal. Normal visualized bilateral piriform sinuses, aryepiglottic folds, vocal cords, and arytenoid-cricoid articulations. Normal subglottic trachea. Normal bilateral lobes of the thyroid gland. Normal visualized pulmonary apices. Normal visualized paranasal sinuses. Normal visualized cervical spine. CT/Soft Tissue Neck without Contr IMPRESSION: There is NO neck mass, abscess or airway compromise. There are borderline enlarged cervical lymph nodes. Electronically Signed: Thang Falk MD at 22:36 EDT , Service support , CC: Carmelo Jimenez MD; Stoney Blue MD Monorail Crane Operator: Signed BASIC METABOLIC Collected: 11/03/2017 Status: F Source: [place] PROFILE (BMP) 9:30 PM [facility] [place] REPOSITORY TYPE CODE TESTS RESULT OUT OF RANGE REFERENCE UNITS LAB L501.0100 74-106 mg/dL High GLU 133 Result Comment: Fasting Glucose result greater than or equal to 126 mg/dL suggests DIABETES MELLITUS per A.D.A. criteria. Please note revised GLUCOSE reference range effective 2017. LAB L501.1000 7-18 mg/dL Normal BUN 12 LAB L501.1100 0.55-1.02 mg/dL Normal CREAT,SERUM 0.74 Result Comment: The validity of the calculated GFR AND GFRAA in patients over 70 years has not been determined. Clinical correlation is essential. LAB L501.1110 >60 mL/min Normal EST GFR 95 Result Comment: Non- GFR Calc LAB L501.1115 >60 mL/min Normal EST GFR - AA 115 Result Comment: GFR Calc LAB L501.1255 ml/min Normal Estimated CRCL 110.89 LAB L501.1300 10-20 RATIO BUN/CRE Normal 16.2 LAB L501.2200 8.5-10 mg/dL .1 CA Normal 9.1 LAB L501.5300 136-14 mmol/L 5 NA Normal 140 LAB L501.5600 3.5-5. mmol/L 1 K Normal 4.1 Result Comment: Slight Hemolysis, Result may be falsely increased. LAB L501.5900 98-107 mmol/L Normal CL 106 LAB L501.6100 21.0-32.0 mmol/L Normal CO2 25.0 LAB L501.6200 5-15 Normal 9 GAP Performed By: #### L500.2500 #### [facility] [address] [place], [address] PROGRESS Observed: 11/02/2017 Status: COMPLETED Source: [place] 5:49 PM [facility] REPOSITORY HNO ID: [id number] Author: Madhavi Lechuga) Mindy Service: (none) Author Type: Nurse Practitioner Type: Progress Notes Filed: 11/02/2017 6:22 PM Note Text: Subjective HPI Mariana Early is a 37 year old female who presents with right jaw swelling and tenderness since last night. She had an upper GI scope done yesterday. She noticed some tenderness last night. Today it is slightly swollen. She was given twilight for anesthesia. She was not intubated. She rates the pain a 3/10 but is worse with pressure or touching it. With pressure the pain is a 9/10 and sends a sharp shooting pain from her jaw to her face, and she feels nauseated when this pain occurs. She is currently taking an antibiotic for a sinus infection (cyclimycin). She was Augmentin 3 times previously for same sinus infection that had persisted for 9 weeks. She saw ENT who did a culture. Review of Systems Constitutional: Positive for fever (99.9 at home). HENT: Negative for congestion, ear pain, sinus pain and sore throat. Respiratory: Negative. Cardiovascular: Negative. Skin: Negative. Negative for itching and rash. BP 114/76 Pulse 98 Temp 37.3 ?C (99.2 ?F) (Left Tympanic) Resp 16 Wt 120.9 kg (266 lb 9.6 oz) SpO2 98% BMI 39.49 kg/m? PAST MEDICAL HISTORY Diagnosis Date - Asthma Dr. Victorino Trevizo ([facility]) - Dystonia - Elevated LFTs - Fibromyalgia - Hyperlipidemia - Hypoglycemia unawareness associated with type 2 diabetes mellitus (HCC) - Hypothyroid - Migraine headache with aura Not always with aura; treated with Botox Injections by Dr. Ellis - Obesity - Obstructive sleep apnea treated with BiPAP Sleep Medicine Doctor--Dr. Lovett - Occipital neuralgia Dr. 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 Lyon - PAST SURGICAL HISTORY OF cyst removed from Rt eye lid - PAST SURGICAL HISTORY OF scar tissue removed for breast, left - PAST SURGICAL HISTORY OF cysts from the lower back x 2 - PAST SURGICAL HISTORY OF - PAST SURGICAL HISTORY OF Allergy injections once a week - RHINOPLASTY FOR NOSE DEFORM TIP SEPTUM, OS ALLERGIES Ciprofloxacin; Imitrex [Sumatriptan Succinate]; Nickel; Adhesive; Aspirin; Corticosteroids (Glucocorticoids); Cymbalta [Duloxetine]; Effexor [Venlafaxine]; Lipitor [Atorvastatin Calcium]; Narcotics [Opioids - Morphine Analogues]; Nifedipine; Sulfa (Sulfonamide Antibiotics); Tomatoes; Topamax [Topiramate]; Ultram [Tramadol]; Wheat, Wheat Germ MEDICATIONS metaxalone (SKELAXIN) 800 mg tablet take 1 tablet by mouth three times a day if needed for pain triamcinolone acetonide (KENALOG) 0.1 % cream Apply 1 application to affected area three times daily. Apply sparingly to area for rash/itching. Magnesium 250 mg tab On Hold ciclopirox (LOPROX) 0.77 % cream Apply 1 application to affected area twice daily. varicella virus vaccine, PF, (VARIVAX) 1,350 unit/0.5 mL injection Give 1 dose then repeat dose in 4 to 8 weeks later glimepiride (AMARYL) 4 mg tablet TAKE 1 TABLET BY MOUTH TWICE DAILY. dulaglutide (TRULICITY) 1.5 mg/0.5 mL pnij Inject 1.5 mL subcutaneously once each week. fluvoxaMINE Maleate (LUVOX) 25 mg tablet Take 1 tablet by mouth daily at bedtime. pantoprazole DR (PROTONIX) 40 mg tablet Take 1 tablet by mouth daily before breakfast. Take on empty stomach, 1/2 hr before meal. TAKING NEEDED NOW enalapril (VASOTEC) 5 mg tablet Take 1 tablet by mouth once daily. metFORMIN ER (GLUCOPHAGE XR) 500 mg 24 hr tablet Take 2 tablets by mouth twice daily. olopatadine (PATANOL) 0.1 % ophthalmic solution Use 1 Drop in both eyes twice daily. 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 LORazepam (ATIVAN) 1 mg tablet Take 1 tablet by mouth twice daily as needed for Anxiety. (Counseling Center provider) ondansetron orally disintegrating (ZOFRAN ODT) 4 mg disintegrating tablet Take 1 tablet by mouth every 8 hours as needed for Nausea/Vomiting. levonorgestrel (MIRENA) 20 mcg/24 hr (5 years) IUD Inserted in office ACLIDINIUM BROMIDE (TUDORZA PRESSAIR INHALATION) Inhale as instructed. Lancets (FREESTYLE LANCETS) lancets Test blood sugar(s) 2 times daily. Dx: DM2 250.00. Insulin: No LEVALBUTEROL HCL (XOPENEX INHALATION) Use 1 Vial via nebulizer every 6 hours as needed. blood sugar diagnostic (FREESTYLE LITE STRIPS) test strip Test blood sugar(s) 2 times daily. Dx: DM2 250.00. Insulin: No Blood-Glucose Meter (FREESTYLE LITE METER) monitoring kit Test sugars 2 time daily and when needed. budesonide-formoterol (SYMBICORT) 160-4.5 mcg/actuation inhaler Inhale 2 Puffs as instructed twice daily. fluconazole (DIFLUCAN) 100 mg tablet Take daily for 7 days then may take weekly for 8 weeks or as directed CALCIUM CARBONATE/VITAMIN D3 (VITAMIN D-3 ORAL) Take by mouth. CRESTOR 5 mg tablet Take 1 tablet by mouth once daily. Cholecalciferol, Vitamin D3, 5,000 unit tab Take 1 tablet by mouth once daily. FAMILY HISTORY Problem Relation Age of Onset - Diabetes Mother patient states her mother is no longer diabetic - Thyroid Mother - Cataract Mother - Diabetes Maternal Grandmother - Stroke Maternal Grandmother - Heart Maternal Grandmother afib, tach - other (fibromyalgia) Other multiple female relatives - other (polycystic ovarian syndrome) Other multiple female relatives - other (autism spectrum) Other uncle, cousins, self Social History Substance Use Topics - Smoking status: Never Smoker - Smokeless tobacco: Never Used - Alcohol use 1.5 oz/week 1 Glasses of Wine (5oz) per week Objective Physical Exam Constitutional: She is well-developed, well-nourished, and in no distress. HENT: Head: Normocephalic. Right Ear: Tympanic membrane, external ear and ear canal normal. Left Ear: Tympanic membrane, external ear and ear canal normal. Nose: Nose normal. No sinus tenderness. Right sinus exhibits no maxillary sinus tenderness and no frontal sinus tenderness. Left sinus exhibits no maxillary sinus tenderness and no frontal sinus tenderness. Mouth/Throat: Uvula is midline, oropharynx is clear and moist and mucous membranes are normal. Mucous membranes are not pale and not dry. No oral lesions. No trismus in the jaw. Normal dentition. No dental abscesses, uvula swelling or dental caries. No oropharyngeal exudate, posterior oropharyngeal edema, posterior oropharyngeal erythema or tonsillar abscesses. Cardiovascular: Normal rate, regular rhythm and normal heart sounds. Pulmonary/Chest: Effort normal and breath sounds normal. No respiratory distress. She has no wheezes. She has no rales. Neurological: She is alert. Skin: Skin is warm and dry. No rash noted. No erythema. Nursing note and vitals reviewed. ASSESSMENT/PLAN: 1. Pain in lower jaw - ICD9: 784.92, ICD10: R68.84 - differential includes TMJ, sialadenitis, trauma from scope. - recommend tylenol, hard sour candies, ice pack. Patient currently on antibiotic cyclimycin for sinusitis. - if pain not improving with above measures, recommend follow up with ENT or ER. - Follow-up with your PCP in 3-5 days if symptoms have not improved or sooner if symptoms worsen - Discussed red flags and need for immediate medical evaluation if any occur. - Discussed supportive care treatment with fluids, rest and analgesia. - Discussed expected course of illness Madhavi Guillen APRN.TOM VELEZOV Observed: 11/02/2017 Status: COMPLETED Source: [place] 5:30 PM [facility] REPOSITORY Office Visit ([facility]) MARIANA EARLY ([id number]) 1980 F Date Time Provider Department 11/02/17 5:30 PM MADHAVI GUILLEN ([facility]) [facility] During your visit today, we recorded the following information about you: Temperature Pulse Respiration Blood pressure 99.2 degrees 98/minute 16/minute 114/76 Weight 120.9 kg Madhavi Guillen APRN.CNP 11/02/2017 6:22 PM Addendum Subjective HPI Mariana Early is a 37 year old female who presents with right jaw swelling and tenderness since last night. She had an upper GI scope done yesterday. She noticed some tenderness last night. Today it is slightly swollen. She was given twilight for anesthesia. She was not intubated. She rates the pain a 3/10 but is worse with pressure or touching it. With pressure the pain is a 9/10 and sends a sharp shooting pain from her jaw to her face, and she feels nauseated when this pain occurs. She is currently taking an antibiotic for a sinus infection (cyclimycin). She was Augmentin 3 times previously for same sinus infection that had persisted for 9 weeks. She saw ENT who did a culture. Review of Systems Constitutional: Positive for fever (99.9 at home). HENT: Negative for congestion, ear pain, sinus pain and sore throat. Respiratory: Negative. Cardiovascular: Negative. Skin: Negative. Negative for itching and rash. BP 114/76 Pulse 98 Temp 37.3 ?C (99.2 ?F) (Left Tympanic) Resp 16 Wt 120.9 kg (266 lb 9.6 oz) SpO2 98% BMI 39.49 kg/m? PAST MEDICAL HISTORY Diagnosis Date - Asthma Dr. Victorino Trevizo ([facility]) - Dystonia - Elevated LFTs - Fibromyalgia - Hyperlipidemia - Hypoglycemia unawareness associated with type 2 diabetes mellitus (HCC) - Hypothyroid - Migraine headache with aura Not always with aura; treated with Botox Injections by Dr. Ellis - Obesity - Obstructive sleep apnea treated with BiPAP Sleep Medicine Doctor--Dr. Lovett - Occipital neuralgia Dr. 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 Lyon - PAST SURGICAL HISTORY OF cyst removed from Rt eye lid - PAST SURGICAL HISTORY OF scar tissue removed for breast, left - PAST SURGICAL HISTORY OF cysts from the lower back x 2 - PAST SURGICAL HISTORY OF - PAST SURGICAL HISTORY OF Allergy injections once a week - RHINOPLASTY FOR NOSE DEFORM TIP SEPTUM, OS ALLERGIES Ciprofloxacin; Imitrex [Sumatriptan Succinate]; Nickel; Adhesive; Aspirin; Corticosteroids (Glucocorticoids); Cymbalta [Duloxetine]; Effexor [Venlafaxine]; Lipitor [Atorvastatin Calcium]; Narcotics [Opioids - Morphine Analogues]; Nifedipine; Sulfa (Sulfonamide Antibiotics); Tomatoes; Topamax [Topiramate]; Ultram [Tramadol]; Wheat, Wheat Germ MEDICATIONS metaxalone (SKELAXIN) 800 mg tablet take 1 tablet by mouth three times a day if needed for pain triamcinolone acetonide (KENALOG) 0.1 % cream Apply 1 application to affected area three times daily. Apply sparingly to area for rash/itching. Magnesium 250 mg tab On Hold ciclopirox (LOPROX) 0.77 % cream Apply 1 application to affected area twice daily. varicella virus vaccine, PF, (VARIVAX) 1,350 unit/0.5 mL injection Give 1 dose then repeat dose in 4 to 8 weeks later glimepiride (AMARYL) 4 mg tablet TAKE 1 TABLET BY MOUTH TWICE DAILY. dulaglutide (TRULICITY) 1.5 mg/0.5 mL pnij Inject 1.5 mL subcutaneously once each week. fluvoxaMINE Maleate (LUVOX) 25 mg tablet Take 1 tablet by mouth daily at bedtime. pantoprazole DR (PROTONIX) 40 mg tablet Take 1 tablet by mouth daily before breakfast. Take on empty stomach, 1/2 hr before meal. TAKING NEEDED NOW enalapril (VASOTEC) 5 mg tablet Take 1 tablet by mouth once daily. metFORMIN ER (GLUCOPHAGE XR) 500 mg 24 hr tablet Take 2 tablets by mouth twice daily. olopatadine (PATANOL) 0.1 % ophthalmic solution Use 1 Drop in both eyes twice daily. 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 LORazepam (ATIVAN) 1 mg tablet Take 1 tablet by mouth twice daily as needed for Anxiety. ([facility]seling [facility] provider) ondansetron orally disintegrating (ZOFRAN ODT) 4 mg disintegrating tablet Take 1 tablet by mouth every 8 hours as needed for Nausea/Vomiting. levonorgestrel (MIRENA) 20 mcg/24 hr (5 years) IUD Inserted in office ACLIDINIUM BROMIDE (TUDORZA PRESSAIR INHALATION) Inhale as instructed. Lancets (FREESTYLE LANCETS) lancets Test blood sugar(s) 2 times daily. Dx: DM2 250.00. Insulin: No LEVALBUTEROL HCL (XOPENEX INHALATION) Use 1 Vial via nebulizer every 6 hours as needed. blood sugar diagnostic (FREESTYLE LITE STRIPS) test strip Test blood sugar(s) 2 times daily. Dx: DM2 250.00. Insulin: No Blood-Glucose Meter (FREESTYLE LITE METER) monitoring kit Test sugars 2 time daily and when needed. budesonide-formoterol (SYMBICORT) 160-4.5 mcg/actuation inhaler Inhale 2 Puffs as instructed twice daily. fluconazole (DIFLUCAN) 100 mg tablet Take daily for 7 days then may take weekly for 8 weeks or as directed CALCIUM CARBONATE/VITAMIN D3 (VITAMIN D-3 ORAL) Take by mouth. CRESTOR 5 mg tablet Take 1 tablet by mouth once daily. Cholecalciferol, Vitamin D3, 5,000 unit tab Take 1 tablet by mouth once daily. FAMILY HISTORY Problem Relation Age of Onset - Diabetes Mother patient states her mother is no longer diabetic - Thyroid Mother - Cataract Mother - Diabetes Maternal Grandmother - Stroke Maternal Grandmother - Heart Maternal Grandmother afib, tach - other (fibromyalgia) Other multiple female relatives - other (polycystic ovarian syndrome) Other multiple female relatives - other (autism spectrum) Other uncle, cousins, self Social History Substance Use Topics - Smoking status: Never Smoker - Smokeless tobacco: Never Used - Alcohol use 1.5 oz/week 1 Glasses of Wine (5oz) per week Objective Physical Exam Constitutional: She is well-developed, well-nourished, and in no distress. HENT: Head: Normocephalic. Right Ear: Tympanic membrane, external ear and ear canal normal. Left Ear: Tympanic membrane, external ear and ear canal normal. Nose: Nose normal. No sinus tenderness. Right sinus exhibits no maxillary sinus tenderness and no frontal sinus tenderness. Left sinus exhibits no maxillary sinus tenderness and no frontal sinus tenderness. Mouth/Throat: Uvula is midline, oropharynx is clear and moist and mucous membranes are normal. Mucous membranes are not pale and not dry. No oral lesions. No trismus in the jaw. Normal dentition. No dental abscesses, uvula swelling or dental caries. No oropharyngeal exudate, posterior oropharyngeal edema, posterior oropharyngeal erythema or tonsillar abscesses. Cardiovascular: Normal rate, regular rhythm and normal heart sounds. Pulmonary/Chest: Effort normal and breath sounds normal. No respiratory distress. She has no wheezes. She has no rales. Neurological: She is alert. Skin: Skin is warm and dry. No rash noted. No erythema. Nursing note and vitals reviewed. ASSESSMENT/PLAN: 1. Pain in lower jaw - ICD9: 784.92, ICD10: R68.84 - differential includes TMJ, sialadenitis, trauma from scope. - recommend tylenol, hard sour candies, ice pack. Patient currently on antibiotic cyclimycin for sinusitis. - if pain not improving with above measures, recommend follow up with ENT or ER. - Follow-up with your PCP in 3-5 days if symptoms have not improved or sooner if symptoms worsen - Discussed red flags and need for immediate medical evaluation if any occur. - Discussed supportive care treatment with fluids, rest and analgesia. - Discussed expected course of illness Madhavi Guillen APRN.TOM Guillen APRN.CNP 11/02/2017 6:06 PM Signed Exam is normal today but your pain is abnormal. Recommend tylenol for pain, gargle with warm salt water, and follow up with ENT if not improving. If your pain is worsening, recommend evaluation in ER to rule out emergent condition. Referring Provider: SELF [[id number]] Allergies As of Date: 11/02/2017 Noted Allergy Reaction CIPROFLOXACIN 04/18/2011 14 - Other: See Comments Comments: Mother highly allergic to medication IMITREX (SUMATRIPTAN SUCCINATE) 04/18/2011 8 - GI Upset 11 - Vomiting NICKEL 05/14/2015 2 - Rash 4 - Hives 7 - Swelling ADHESIVE 04/18/2011 2 - Rash 14 - Other: See Comments Comments: Pulling of skin ASPIRIN 04/18/2011 8 - GI Upset CORTICOSTEROIDS (GLUCOCORTICOIDS) 08/01/2014 14 - Other: See Comments Comments: Increase in blood sugars CYMBALTA (DULOXETINE) 11/28/2013 5 - Intolerance EFFEXOR (VENLAFAXINE) 08/23/2015 14 - Other: See Comments LIPITOR (ATORVASTATIN CALCIUM) 08/26/2014 4 - Hives NARCOTICS (OPIOIDS - MORPHINE JERRICA*11/02/2011 14 - Other: See Comments Comments: Mood changes/depression worsen/if taking must be monitored closley NIFEDIPINE 08/27/2013 14 - Other: See Comments Comments: Chest pain heart racing and skin flushing SULFA (SULFONAMIDE ANTIBIOTICS) 04/18/2011 14 - Other: See Comments Comments: headaches TOMATOES 01/26/2017 8 - GI Upset TOPAMAX (TOPIRAMATE) 11/28/2013 5 - Intolerance ULTRAM (TRAMADOL) 08/01/2014 12 - Shortness of Breath WHEAT, WHEAT GERM 01/26/2017 2 - Rash Date Reviewed: 11/02/2017 Reviewed by: Staci De Leon Ma - Fully Assessed Reason for Visit: right side of jaw swelling [Other] Primary Visit Diagnosis:Pain in lower jaw [R68.84] Prescriptions as of 11/02/2017 Sig: METAXALONE 800 MG TABLET take 1 tablet by mouth three * TRIAMCINOLONE ACETONIDE 0.1 %* Apply 1 application to affect* MAGNESIUM 250 MG TABLET On Hold CICLOPIROX 0.77 % TOPICAL CRE* Apply 1 application to affect* VARICELLA VIRUS VACCINE LIVE * Give 1 dose then repeat dose * GLIMEPIRIDE 4 MG TABLET TAKE 1 TABLET BY MOUTH TWICE * DULAGLUTIDE 1.5 MG/0.5 ML SUB* Inject 1.5 mL subcutaneously * FLUVOXAMINE 25 MG TABLET Take 1 tablet by mouth daily * PANTOPRAZOLE 40 MG TABLET,DEL* Take 1 tablet by mouth daily * ENALAPRIL MALEATE 5 MG TABLET Take 1 tablet by mouth once d* METFORMIN ER 500 MG TABLET,EX* Take 2 tablets by mouth twice* OLOPATADINE 0.1 % EYE DROPS Use 1 Drop in both eyes twice* LEVALBUTEROL 0.63 MG/3 ML LUIS* Use 3 mL via nebulizer every * LORAZEPAM 1 MG TABLET Take 1 tablet by mouth twice * ONDANSETRON 4 MG DISINTEGRATI* Take 1 tablet by mouth every * LEVONORGESTREL 20 MCG/24 HR (* Inserted in office TUDORZA PRESSAIR INHALATION Inhale as instructed. LANCETS Test blood sugar(s) 2 times d* XOPENEX INHALATION Use 1 Vial via nebulizer ever* BLOOD SUGAR DIAGNOSTIC STRIPS Test blood sugar(s) 2 times d* * BLOOD-GLUCOSE METER KIT Test sugars 2 time daily and * * BUDESONIDE-FORMOTEROL HFA 160* Inhale 2 Puffs as instructed * FLUCONAZOLE 100 MG TABLET Take daily for 7 days then ma* Patient not taking: Reported on 11/02/2017 VITAMIN D-3 ORAL Take by mouth. CRESTOR 5 MG TABLET Take 1 tablet by mouth once d* CHOLECALCIFEROL (VITAMIN D3) * Take 1 tablet by mouth once d* Problem List As Of Date 11/02/2017 Noted Resolved Diabetes mellitus type 2, uncontrolled (HCC) [E*INVALID FOR*09/03/2015 Hyperlipidemia [E78.5] INVALID FOR* Obesity, Class III, BMI 40-49.9 (morbid obesity*INVALID FOR*09/03/2015 Hypothyroid [E03.9] INVALID FOR*09/03/2015 Obstructive sleep apnea [G47.33] INVALID FOR*09/03/2015 Asthma, moderate persistent [J45.40] INVALID FOR*09/03/2015 Albuminuria [R80.9] INVALID FOR*09/03/2015 Vitamin D deficiency [E55.9] INVALID FOR* Faintness [R55] INVALID FOR*09/03/2015 Type 2 diabetes, controlled, with neuropathy (H*INVALID FOR*02/05/2015 PCOS (polycystic ovarian syndrome) [E28.2] INVALID FOR* More... Migraine headache without aura [G43.009] INVALID FOR*09/03/2015 More... Restless legs syndrome (RLS) [G25.81] INVALID FOR*09/03/2015 More... Right ankle instability [M25.371] INVALID FOR*09/03/2015 Left ankle instability [M25.372] INVALID FOR*09/03/2015 Type 2 diabetes mellitus with hyperglycemia (HC* More... Type 2 diabetes mellitus with neurological john* More... Type 2 diabetes mellitus with polyneuropathy (H* Hypoglycemia unawareness associated with type 2* Obesity [E66.9] 09/05/2016 Hypothyroid [E03.9] More... Ovarian cyst, left [N83.202] INVALID FOR* Multiple thyroid nodules [E04.2] INVALID FOR* Bilateral low back pain with sciatica [M54.40] INVALID FOR* Asymptomatic PVCs [I49.3] INVALID FOR* Morbid obesity with BMI of 40.0-44.9, adult (HC*INVALID FOR*05/14/2017 Statin intolerance [Z78.9] INVALID FOR* More... Hypogammaglobulinemia (HCC) [D80.1] INVALID FOR* Recurrent infections [B99.9] INVALID FOR* Allergic rhinitis [J30.9] INVALID FOR* Asthma, well controlled [J45.909] INVALID FOR* MEGHAN on CPAP [G47.33, Z99.89] INVALID FOR* Obesity (BMI 30-39.9) [E66.9] INVALID FOR* Other instructions from your clinician: Exam is normal today but your pain is abnormal. Recommend tylenol for pain, gargle with warm salt water, and follow up with ENT if not improving. If your pain is worsening, recommend evaluation in ER to rule out emergent condition. Encounter Status:Closed by MADHAVI GUILLEN on 11/02/17 [facility] Observed: 2017 Status: UNK Source: [facility] 12:31 PM [facility] VASCULAR MEDSTREAMING REPORT Patient: MARIANA EARLY Account [id number] Ordering Phy: MR: [id number] Reason for Visit: VERTEBRO BASILAR ARTERY SYNDROME,DIZZINESS Date of Service 10/16/17 Reading Physician: Hever Remy MD Right: Grayscale, color, and spectral Doppler images were obtained from the right extracranial carotid arteries. The right internal carotid artery shows no visible plaque. The peak systolic velocity in the right internal carotid artery is 101 cm/sec. and the end diastolic velocity is 26 . The ICA/CCA ratio is calculated at 1.0 . Right vertebral artery flow is antegrade and within normal limits. This is suggestive of a normal right carotid artery. Left: Grayscale, color, and spectral Doppler images were obtained from the left extracranial carotid arteries. The left internal carotid artery shows no visible plaque. The peak systolic velocity in the left internal carotid artery is 86 cm/sec. and the end diastolic velocity is 22 . The ICA/CCA ratio is calculated at 1.0 . Left vertebral artery flow is antegrade and within normal limits. This is suggestive of a normal left carotid artery. Conclusions: No evidence of visible plaque or flow abnormalities in the right internal carotid artery. No evidence of visible plaque or flow abnormalities in the left internal carotid artery. CC: Porfirio Lovett MD Abbreviated Final Report. Full Report is available via link to [employer] in PCI under [facility] Image Viewer. [facility] PATIENT NAME: MARIANA EARLY [facility] Dr. Epstein MEDICAL REC #: [id number] [place] [address] ADMIT DATE: DISCHARGE DATE: CAROTID DUPLEX REPORT ATTENDING PHY: Porfirio Lovett MD Electronically Signed by: Hever Remy MD Esign Date: 10/16/17 Observed: 10/08/2017 Status: F Source: [place] CULTURE, NOSE 4:27 PM [facility] REPOSITORY Gram Stain Gram Stain 1+ White Blood Cells Rare Gram negative rods Nasoph. Cult There are no CLSI standards for interpretation of this Drug/Organism combination. ORGANISM 1: Corynebact. pseudodiphtheritic Amount Growth 3+ Performed By: #### [id number] #### [facility] [address] [place], [address] CNOV Observed: 10/05/2017 Status: COMPLETED Source: [place] 2:55 PM [facility] REPOSITORY Office Visit (PODIWS) MARIANA EARLY ([id number]) 1980 F Date Time Provider Department 10/05/17 2:55 PM ALIYAH GOSS PODIWS During your visit today, we recorded the following information about you: Aliyah Goss DPM 10/07/2017 7:58 AM Signed ? Aliyah Goss DPM Department of Podiatry [address] [facility] [address] Dept: [phone] Dept 10/05/2017 Follow Up Podiatric Office Visit: HPI: Mariana Early is a 36 year old female. Patient reports continued bilateral foot pain, pain varies on activity, but increased with activity. She has been stretching, icing, wearing supportive shoes, and night splint with no relief. Seems like ASO does not provide enough stability, she twisted ankle 1.5 week ago that is now achy pain. Per patient, pain is tolerable. Aliyah Goss DPM PCP: Stoney Blue MD PAST MEDICAL HISTORY Diagnosis Date - Asthma Dr. Victorino Trevizo ([facility]) - Dystonia - Elevated LFTs - Fibromyalgia - Hyperlipidemia - Hypoglycemia unawareness associated with type 2 diabetes mellitus (HCC) - Hypothyroid - Migraine headache with aura Not always with aura; treated with Botox Injections by Dr. Ellis - Obesity - Obstructive sleep apnea treated with BiPAP Sleep Medicine Doctor--Dr. Lovett - Occipital neuralgia Dr. 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 Apply sparingly to area for rash/itching. Magnesium 250 mg tab On Hold ciclopirox (LOPROX) 0.77 % cream Apply 1 application to affected area twice daily. fluconazole (DIFLUCAN) 100 mg tablet Take daily for 7 days then may take weekly for 8 weeks or as directed CALCIUM CARBONATE/VITAMIN D3 (VITAMIN D-3 ORAL) Take by mouth. varicella virus vaccine, PF, (VARIVAX) 1,350 unit/0.5 mL injection Give 1 dose then repeat dose in 4 to 8 weeks later glimepiride (AMARYL) 4 mg tablet TAKE 1 TABLET BY MOUTH TWICE DAILY. dulaglutide (TRULICITY) 1.5 mg/0.5 mL pnij Inject 1.5 mL subcutaneously once each week. fluvoxaMINE Maleate (LUVOX) 25 mg tablet Take 1 tablet by mouth daily at bedtime. pantoprazole DR (PROTONIX) 40 mg tablet Take 1 tablet by mouth daily before breakfast. Take on empty stomach, 1/2 hr before meal. TAKING NEEDED NOW enalapril (VASOTEC) 5 mg tablet Take 1 tablet by mouth once daily. metFORMIN ER (GLUCOPHAGE XR) 500 mg 24 hr tablet Take 2 tablets by mouth twice daily. olopatadine (PATANOL) 0.1 % ophthalmic solution Use 1 Drop in both eyes twice daily. 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 LORazepam (ATIVAN) 1 mg tablet Take 1 tablet by mouth twice daily as needed for Anxiety. (Counseling Center provider) CRESTOR 5 mg tablet Take 1 tablet by mouth once daily. ondansetron orally disintegrating (ZOFRAN ODT) 4 mg disintegrating tablet Take 1 tablet by mouth every 8 hours as needed for Nausea/Vomiting. levonorgestrel (MIRENA) 20 mcg/24 hr (5 years) IUD Inserted in office ACLIDINIUM BROMIDE (TUDORZA PRESSAIR INHALATION) Inhale as instructed. Lancets (FREESTYLE LANCETS) lancets Test blood sugar(s) 2 times daily. Dx: DM2 250.00. Insulin: No LEVALBUTEROL HCL (XOPENEX INHALATION) Use 1 Vial via nebulizer every 6 hours as needed. Cholecalciferol, Vitamin D3, 5,000 unit tab Take 1 tablet by mouth once daily. blood sugar diagnostic (FREESTYLE LITE STRIPS) test strip Test blood sugar(s) 2 times daily. Dx: DM2 250.00. Insulin: No Blood-Glucose Meter (FREESTYLE LITE METER) monitoring kit Test sugars 2 time daily and when needed. budesonide-formoterol (SYMBICORT) 160-4.5 mcg/actuation inhaler Inhale 2 Puffs as instructed twice daily. No current facility-administered medications for this visit. ALLERGIES Allergen Reactions - Ciprofloxacin Other: See Comments Mother highly allergic to medication - Imitrex [Sumatripta* GI Upset, Vomiting - Nickel Rash, Hives, Swelling - Adhesive Rash, Other: See Comments Pulling of skin - Aspirin GI Upset - Corticosteroids (Gl* Other: See Comments Increase in blood sugars - Cymbalta [Duloxetin* Intolerance - Effexor [Venlafaxin* Other: See Comments - Lipitor [Atorvastat* Hives - Narcotics [Opioids * Other: See Comments Mood changes/depression worsen/if taking must be monitored closley - Nifedipine Other: See Comments Chest pain heart racing and skin flushing - Sulfa (Sulfonamide * Other: See Comments headaches - Tomatoes GI Upset - Topamax [Topiramate] Intolerance - Ultram [Tramadol] Shortness of Breath - Wheat, Wheat Germ Rash PAST SURGICAL HISTORY Procedure Laterality Date - CAUTER TURBINATE MUCOSA,INTRAMURAL 09/19/2012 Turbinoplasty - Dr. Lyon - PAST SURGICAL HISTORY OF cyst removed from Rt eye lid - PAST SURGICAL HISTORY OF scar tissue removed for breast, left - PAST SURGICAL HISTORY OF cysts from the lower back x 2 - PAST SURGICAL HISTORY OF - PAST SURGICAL HISTORY OF Allergy injections once a week - RHINOPLASTY FOR NOSE DEFORM TIP SEPTUM, OS FAMILY HISTORY Problem Relation Age of Onset - Diabetes Mother patient states her mother is no longer diabetic - Thyroid Mother - Cataract Mother - Diabetes Maternal Grandmother - Stroke Maternal Grandmother - Heart Maternal Grandmother afib, tach - fibromyalgia [OTHER] Other multiple female relatives - polycystic ovarian syndrome [OTHER] Other multiple female relatives - autism spectrum [OTHER] Other uncle, cousins, self Social History Marital status: Single Spouse name: Years of education: Number of children: Social History Main Topics Smoking status: Never Smoker Smokeless tobacco: Never Used Alcohol use: Yes 1.5 oz/week Glasses of Wine (5oz): 1 per week Drug use: No Sexual activity: Yes Partners with: Male control/protection: IUD Comment: micheal REVIEW OF SYSTEMS: CONSTITUTIONAL: No fevers, chills, nightsweats, unintended weight loss HEENT: Denies frequent or severe heaches, nasal congestion/sinus symptoms, problematic allergy problems. EYES: No diplopia or blurry vision. CARDIOVASCULAR: No chest pain, dyspnea, palpitations, orthopnea, PND, ankle edema. PULM: No dyspnea, unexplained cough. GI: No dysphagia/odynophagia, problematic reflux, constipation, diarrhea, changes in stool habits, hematochezia, melena. : No new urinary complaints, including dysuria, gross hematuria or pyuria. NEURO: No new balance problems, peripheral weakness/paresthesias or numbness of concern. MUSC-SKEL: B/l heel/arch pain PSY: No concerns regarding depression, anxiety or panic. INTEGUMENTARY: No new skin changes (rash, new or changing mole, new growth) Physical Exam: Constitutional: Pt is a well developed 36 year old female who is alert, oriented and cooperative Eyes: Following during examination. No redness or drainage. Respiratory: RR normal and nonlabored. Even breathing. No evidence of distress or shortness of breath. Psychology: Patient is engaged during conversation. Normal affect and mood. Does not appear depressed or anxious during encounter. Vascular: Dorsalis pedis and posterior tibial pulses palpable as b/l Capillary Fill time < 5 seconds to digits 1-5 b/l Skin temperature warm to warm proximal to distal b/l Hair growth present to digits Neurological: intact light touch/epicritic sensation - tinel b/l Dermatological: Nails 1-5 b/l appear Normal. Webspaces clean and dry 1-4 b/l. Skin appears well hydrated and supple. good color, texture, turgor. Callosities absent. .Open lesions absent. Wound: Not present. Musculoskeletal/Orthopaedic: Patient has pain to palpation of b/l medial calcaneal tubercle No pain to ankle. Foot type is pronated structurally AJ ROM is full with knee extended and flexed 1st MPJ is full when loaded and no pain or crepitus are noted with ROM. MTJ, STJ are full and free of pain and crepitus. +5/5 muscle strength dorsiflexion, plantarflexion, inversion, eversion b/l ASSESSMENT: (M72.2) Bilateral plantar fasciitis (primary encounter diagnosis) (M25.373) Unstable ankle, unspecified laterality PLAN: Patient was examined and informed of current findings Discussed ongoing heel pain of b/l lower extremity. We have treated with stretching, icing, nsaids, inserts, night splint. We have discussed physical therapy but patient unable to pursue due to job. We have offered steroid injection but she has declined due to her diabetes. She wants to continue with monitoring Discussed ankle pain. Offered xrays but she declined. She wants to just monitor. BIANCA Sanchez RN 10/05/2017 3:10 PM Signed Contact office to schedule an appointment if you decide you want an injection Referring Provider: ALIYAH GOSS [[id number]] Allergies As of Date: 10/05/2017 Noted Allergy Reaction CIPROFLOXACIN 04/18/2011 14 - Other: See Comments Comments: Mother highly allergic to medication IMITREX (SUMATRIPTAN SUCCINATE) 04/18/2011 8 - GI Upset 11 - Vomiting NICKEL 05/14/2015 2 - Rash 4 - Hives 7 - Swelling ADHESIVE 04/18/2011 2 - Rash 14 - Other: See Comments Comments: Pulling of skin ASPIRIN 04/18/2011 8 - GI Upset CORTICOSTEROIDS (GLUCOCORTICOIDS) 08/01/2014 14 - Other: See Comments Comments: Increase in blood sugars CYMBALTA (DULOXETINE) 11/28/2013 5 - Intolerance EFFEXOR (VENLAFAXINE) 08/23/2015 14 - Other: See Comments LIPITOR (ATORVASTATIN CALCIUM) 08/26/2014 4 - Hives NARCOTICS (OPIOIDS - MORPHINE JERRICA*11/02/2011 14 - Other: See Comments Comments: Mood changes/depression worsen/if taking must be monitored closley NIFEDIPINE 08/27/2013 14 - Other: See Comments Comments: Chest pain heart racing and skin flushing SULFA (SULFONAMIDE ANTIBIOTICS) 04/18/2011 14 - Other: See Comments Comments: headaches TOMATOES 01/26/2017 8 - GI Upset TOPAMAX (TOPIRAMATE) 11/28/2013 5 - Intolerance ULTRAM (TRAMADOL) 08/01/2014 12 - Shortness of Breath WHEAT, WHEAT GERM 01/26/2017 2 - Rash Date Reviewed: 09/04/2017 Reviewed by: Phoenix Rendon) Piter - Fully Assessed Reason for Visit: Follow Up [171] Primary Visit Diagnosis:Bilateral plantar fasciitis [M72.2] Other Visit Diagnosis:Unstable ankle, unspecified laterality [M25.373] Prescriptions as of 10/05/2017 Sig: METAXALONE 800 MG TABLET take 1 tablet by mouth three * TRIAMCINOLONE ACETONIDE 0.1 %* Apply 1 application to affect* MAGNESIUM 250 MG TABLET On Hold CICLOPIROX 0.77 % TOPICAL CRE* Apply 1 application to affect* FLUCONAZOLE 100 MG TABLET Take daily for 7 days then ma* VITAMIN D-3 ORAL Take by mouth. VARICELLA VIRUS VACCINE LIVE * Give 1 dose then repeat dose * GLIMEPIRIDE 4 MG TABLET TAKE 1 TABLET BY MOUTH TWICE * DULAGLUTIDE 1.5 MG/0.5 ML SUB* Inject 1.5 mL subcutaneously * FLUVOXAMINE 25 MG TABLET Take 1 tablet by mouth daily * PANTOPRAZOLE 40 MG TABLET,DEL* Take 1 tablet by mouth daily * ENALAPRIL MALEATE 5 MG TABLET Take 1 tablet by mouth once d* METFORMIN ER 500 MG TABLET,EX* Take 2 tablets by mouth twice* OLOPATADINE 0.1 % EYE DROPS Use 1 Drop in both eyes twice* LEVALBUTEROL 0.63 MG/3 ML LUIS* Use 3 mL via nebulizer every * LORAZEPAM 1 MG TABLET Take 1 tablet by mouth twice * CRESTOR 5 MG TABLET Take 1 tablet by mouth once d* ONDANSETRON 4 MG DISINTEGRATI* Take 1 tablet by mouth every * LEVONORGESTREL 20 MCG/24 HR (* Inserted in office TUDORZA PRESSAIR INHALATION Inhale as instructed. LANCETS Test blood sugar(s) 2 times d* XOPENEX INHALATION Use 1 Vial via nebulizer ever* CHOLECALCIFEROL (VITAMIN D3) * Take 1 tablet by mouth once d* BLOOD SUGAR DIAGNOSTIC STRIPS Test blood sugar(s) 2 times d* * BLOOD-GLUCOSE METER KIT Test sugars 2 time daily and * * BUDESONIDE-FORMOTEROL HFA 160* Inhale 2 Puffs as instructed * Problem List As Of Date 10/05/2017 Noted Resolved Diabetes mellitus type 2, uncontrolled (HCC) [E*INVALID FOR*09/03/2015 Hyperlipidemia [E78.5] INVALID FOR* Obesity, Class III, BMI 40-49.9 (morbid obesity*INVALID FOR*09/03/2015 Hypothyroid [E03.9] INVALID FOR*09/03/2015 Obstructive sleep apnea [G47.33] INVALID FOR*09/03/2015 Asthma, moderate persistent [J45.40] INVALID FOR*09/03/2015 Albuminuria [R80.9] INVALID FOR*09/03/2015 Vitamin D deficiency [E55.9] INVALID FOR* Faintness [R55] INVALID FOR*09/03/2015 Type 2 diabetes, controlled, with neuropathy (H*INVALID FOR*02/05/2015 PCOS (polycystic ovarian syndrome) [E28.2] INVALID FOR* More... Migraine headache without aura [G43.009] INVALID FOR*09/03/2015 More... Restless legs syndrome (RLS) [G25.81] INVALID FOR*09/03/2015 More... Right ankle instability [M25.371] INVALID FOR*09/03/2015 Left ankle instability [M25.372] INVALID FOR*09/03/2015 Type 2 diabetes mellitus with hyperglycemia (HC* More... Type 2 diabetes mellitus with neurological john* More... Type 2 diabetes mellitus with polyneuropathy (H* Hypoglycemia unawareness associated with type 2* Obesity [E66.9] 09/05/2016 Hypothyroid [E03.9] More... Ovarian cyst, left [N83.202] INVALID FOR* Multiple thyroid nodules [E04.2] INVALID FOR* Bilateral low back pain with sciatica [M54.40] INVALID FOR* Asymptomatic PVCs [I49.3] INVALID FOR* Morbid obesity with BMI of 40.0-44.9, adult (HC*INVALID FOR*05/14/2017 Statin intolerance [Z78.9] INVALID FOR* More... Hypogammaglobulinemia (HCC) [D80.1] INVALID FOR* Recurrent infections [B99.9] INVALID FOR* Allergic rhinitis [J30.9] INVALID FOR* Asthma, well controlled [J45.909] INVALID FOR* MEGHAN on CPAP [G47.33, Z99.89] INVALID FOR* Obesity (BMI 30-39.9) [E66.9] INVALID FOR* Other instructions from your clinician: Contact office to schedule an appointment if you decide you want an injection Disposition: Return if symptoms worsen or fail to improve. Follow-up and Disposition History Recorded Encounter Status:Closed by ALIYAH GOSS DPM on 10/07/17 PROGRESS Observed: 10/05/2017 Status: COMPLETED Source: [place] 2:48 PM [facility] REPOSITORY O ID: [id number] Author: Aliyah Goss Service: (none) Author Type: Physician Type: Progress Notes Filed: 10/07/2017 7:58 AM Note Text: ? Aliyah Goss DPM Department of Podiatry [address] [facility] [address] Dept: [phone] Dept 10/05/2017 Follow Up Podiatric Office Visit: HPI: Mariana Early is a 36 year old female. Patient reports continued bilateral foot pain, pain varies on activity, but increased with activity. She has been stretching, icing, wearing supportive shoes, and night splint with no relief. Seems like ASO does not provide enough stability, she twisted ankle 1.5 week ago that is now achy pain. Per patient, pain is tolerable. Aliyah Goss DPM PCP: Stoney Blue MD PAST MEDICAL HISTORY Diagnosis Date - Asthma Dr. Victorino Trevizo ([facility]) - Dystonia - Elevated LFTs - Fibromyalgia - Hyperlipidemia - Hypoglycemia unawareness associated with type 2 diabetes mellitus (HCC) - Hypothyroid - Migraine headache with aura Not always with aura; treated with Botox Injections by Dr. Ellis - Obesity - Obstructive sleep apnea treated with BiPAP Sleep Medicine Doctor--Dr. Lovett - Occipital neuralgia Dr. 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 Apply sparingly to area for rash/itching. Magnesium 250 mg tab On Hold ciclopirox (LOPROX) 0.77 % cream Apply 1 application to affected area twice daily. fluconazole (DIFLUCAN) 100 mg tablet Take daily for 7 days then may take weekly for 8 weeks or as directed CALCIUM CARBONATE/VITAMIN D3 (VITAMIN D-3 ORAL) Take by mouth. varicella virus vaccine, PF, (VARIVAX) 1,350 unit/0.5 mL injection Give 1 dose then repeat dose in 4 to 8 weeks later glimepiride (AMARYL) 4 mg tablet TAKE 1 TABLET BY MOUTH TWICE DAILY. dulaglutide (TRULICITY) 1.5 mg/0.5 mL pnij Inject 1.5 mL subcutaneously once each week. fluvoxaMINE Maleate (LUVOX) 25 mg tablet Take 1 tablet by mouth daily at bedtime. pantoprazole DR (PROTONIX) 40 mg tablet Take 1 tablet by mouth daily before breakfast. Take on empty stomach, 1/2 hr before meal. TAKING NEEDED NOW enalapril (VASOTEC) 5 mg tablet Take 1 tablet by mouth once daily. metFORMIN ER (GLUCOPHAGE XR) 500 mg 24 hr tablet Take 2 tablets by mouth twice daily. olopatadine (PATANOL) 0.1 % ophthalmic solution Use 1 Drop in both eyes twice daily. 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 LORazepam (ATIVAN) 1 mg tablet Take 1 tablet by mouth twice daily as needed for Anxiety. (Counseling Center provider) CRESTOR 5 mg tablet Take 1 tablet by mouth once daily. ondansetron orally disintegrating (ZOFRAN ODT) 4 mg disintegrating tablet Take 1 tablet by mouth every 8 hours as needed for Nausea/Vomiting. levonorgestrel (MIRENA) 20 mcg/24 hr (5 years) IUD Inserted in office ACLIDINIUM BROMIDE (TUDORZA PRESSAIR INHALATION) Inhale as instructed. Lancets (FREESTYLE LANCETS) lancets Test blood sugar(s) 2 times daily. Dx: DM2 250.00. Insulin: No LEVALBUTEROL HCL (XOPENEX INHALATION) Use 1 Vial via nebulizer every 6 hours as needed. Cholecalciferol, Vitamin D3, 5,000 unit tab Take 1 tablet by mouth once daily. blood sugar diagnostic (FREESTYLE LITE STRIPS) test strip Test blood sugar(s) 2 times daily. Dx: DM2 250.00. Insulin: No Blood-Glucose Meter (FREESTYLE LITE METER) monitoring kit Test sugars 2 time daily and when needed. budesonide-formoterol (SYMBICORT) 160-4.5 mcg/actuation inhaler Inhale 2 Puffs as instructed twice daily. No current facility-administered medications for this visit. ALLERGIES Allergen Reactions - Ciprofloxacin Other: See Comments Mother highly allergic to medication - Imitrex [Sumatripta* GI Upset, Vomiting - Nickel Rash, Hives, Swelling - Adhesive Rash, Other: See Comments Pulling of skin - Aspirin GI Upset - Corticosteroids (Gl* Other: See Comments Increase in blood sugars - Cymbalta [Duloxetin* Intolerance - Effexor [Venlafaxin* Other: See Comments - Lipitor [Atorvastat* Hives - Narcotics [Opioids * Other: See Comments Mood changes/depression worsen/if taking must be monitored closley - Nifedipine Other: See Comments Chest pain heart racing and skin flushing - Sulfa (Sulfonamide * Other: See Comments headaches - Tomatoes GI Upset - Topamax [Topiramate] Intolerance - Ultram [Tramadol] Shortness of Breath - Wheat, Wheat Germ Rash PAST SURGICAL HISTORY Procedure Laterality Date - CAUTER TURBINATE MUCOSA,INTRAMURAL 09/19/2012 Turbinoplasty - Dr. Lyon - PAST SURGICAL HISTORY OF cyst removed from Rt eye lid - PAST SURGICAL HISTORY OF scar tissue removed for breast, left - PAST SURGICAL HISTORY OF cysts from the lower back x 2 - PAST SURGICAL HISTORY OF - PAST SURGICAL HISTORY OF Allergy injections once a week - RHINOPLASTY FOR NOSE DEFORM TIP SEPTUM, OS FAMILY HISTORY Problem Relation Age of Onset - Diabetes Mother patient states her mother is no longer diabetic - Thyroid Mother - Cataract Mother - Diabetes Maternal Grandmother - Stroke Maternal Grandmother - Heart Maternal Grandmother afib, tach - fibromyalgia [OTHER] Other multiple female relatives - polycystic ovarian syndrome [OTHER] Other multiple female relatives - autism spectrum [OTHER] Other uncle, cousins, self Social History Marital status: Single Spouse name: Years of education: Number of children: Social History Main Topics Smoking status: Never Smoker Smokeless tobacco: Never Used Alcohol use: Yes 1.5 oz/week Glasses of Wine (5oz): 1 per week Drug use: No Sexual activity: Yes Partners with: Male control/protection: IUD Comment: micheal REVIEW OF SYSTEMS: CONSTITUTIONAL: No fevers, chills, nightsweats, unintended weight loss HEENT: Denies frequent or severe heaches, nasal congestion/sinus symptoms, problematic allergy problems. EYES: No diplopia or blurry vision. CARDIOVASCULAR: No chest pain, dyspnea, palpitations, orthopnea, PND, ankle edema. PULM: No dyspnea, unexplained cough. GI: No dysphagia/odynophagia, problematic reflux, constipation, diarrhea, changes in stool habits, hematochezia, melena. : No new urinary complaints, including dysuria, gross hematuria or pyuria. NEURO: No new balance problems, peripheral weakness/paresthesias or numbness of concern. MUSC-SKEL: B/l heel/arch pain PSY: No concerns regarding depression, anxiety or panic. INTEGUMENTARY: No new skin changes (rash, new or changing mole, new growth) Physical Exam: Constitutional: Pt is a well developed 36 year old female who is alert, oriented and cooperative Eyes: Following during examination. No redness or drainage. Respiratory: RR normal and nonlabored. Even breathing. No evidence of distress or shortness of breath. Psychology: Patient is engaged during conversation. Normal affect and mood. Does not appear depressed or anxious during encounter. Vascular: Dorsalis pedis and posterior tibial pulses palpable as b/l Capillary Fill time < 5 seconds to digits 1-5 b/l Skin temperature warm to warm proximal to distal b/l Hair growth present to digits Neurological: intact light touch/epicritic sensation - tinel b/l Dermatological: Nails 1-5 b/l appear Normal. Webspaces clean and dry 1-4 b/l. Skin appears well hydrated and supple. good color, texture, turgor. Callosities absent. .Open lesions absent. Wound: Not present. Musculoskeletal/Orthopaedic: Patient has pain to palpation of b/l medial calcaneal tubercle No pain to ankle. Foot type is pronated structurally AJ ROM is full with knee extended and flexed 1st MPJ is full when loaded and no pain or crepitus are noted with ROM. MTJ, STJ are full and free of pain and crepitus. +5/5 muscle strength dorsiflexion, plantarflexion, inversion, eversion b/l ASSESSMENT: (M72.2) Bilateral plantar fasciitis (primary encounter diagnosis) (M25.373) Unstable ankle, unspecified laterality PLAN: Patient was examined and informed of current findings Discussed ongoing heel pain of b/l lower extremity. We have treated with stretching, icing, nsaids, inserts, night splint. We have discussed physical therapy but patient unable to pursue due to job. We have offered steroid injection but she has declined due to her diabetes. She wants to continue with monitoring Discussed ankle pain. Offered xrays but she declined. She wants to just monitor. Aliyah Goss DPM PROGRESS Observed: 09/04/2017 Status: COMPLETED Source: [place] 3:43 PM [facility] REPOSITORY O ID: [id number] Author: Phoenix Fountain Service: (none) Author Type: Physician Plant Operator Control Room Operator Type: Progress Notes Filed: 09/04/2017 4:16 PM Note Text: 09/04/2017 Patient presents with: Cough: x 5 days dry cough Fever: x 5 days Ear Problem: x 5 days ears feel full Pain, Sinus: x 5 days sinuses tender Muscle Aches: x 5 days SUBJECTIVE: This is a 36 year old that is here today for Complaint(s) of cough x 5 days, mostly non-productive. + sinus pain and pressure. Intermittent ear pain/pressure. + body aches. Fever, intermittent, Tmax 103-resolved with tylenol. Denies SOB, vomiting, diarrhea. PAST MEDICAL HISTORY Diagnosis Date - Asthma Dr. Victorino Trevizo ([facility]) - Dystonia - Elevated LFTs - Fibromyalgia - Hyperlipidemia - Hypoglycemia unawareness associated with type 2 diabetes mellitus (HCC) - Hypothyroid - Migraine headache with aura Not always with aura; treated with Botox Injections by Dr. Ellis - Obesity - Obstructive sleep apnea treated with BiPAP Sleep Medicine Doctor--Dr. Lovett - Occipital neuralgia Dr. 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 Apply sparingly to area for rash/itching. Magnesium 250 mg tab On Hold metaxalone (SKELAXIN) 800 mg tablet Take 1 tablet by mouth three times daily as needed for Pain. fluconazole (DIFLUCAN) 100 mg tablet Take daily for 7 days then may take weekly for 8 weeks or as directed CALCIUM CARBONATE/VITAMIN D3 (VITAMIN D-3 ORAL) Take by mouth. varicella virus vaccine, PF, (VARIVAX) 1,350 unit/0.5 mL injection Give 1 dose then repeat dose in 4 to 8 weeks later glimepiride (AMARYL) 4 mg tablet TAKE 1 TABLET BY MOUTH TWICE DAILY. dulaglutide (TRULICITY) 1.5 mg/0.5 mL pnij Inject 1.5 mL subcutaneously once each week. fluvoxaMINE Maleate (LUVOX) 25 mg tablet Take 1 tablet by mouth daily at bedtime. pantoprazole DR (PROTONIX) 40 mg tablet Take 1 tablet by mouth daily before breakfast. Take on empty stomach, 1/2 hr before meal. TAKING NEEDED NOW enalapril (VASOTEC) 5 mg tablet Take 1 tablet by mouth once daily. metFORMIN ER (GLUCOPHAGE XR) 500 mg 24 hr tablet Take 2 tablets by mouth twice daily. olopatadine (PATANOL) 0.1 % ophthalmic solution Use 1 Drop in both eyes twice daily. 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 LORazepam (ATIVAN) 1 mg tablet Take 1 tablet by mouth twice daily as needed for Anxiety. (Counseling Center provider) CRESTOR 5 mg tablet Take 1 tablet by mouth once daily. ondansetron orally disintegrating (ZOFRAN ODT) 4 mg disintegrating tablet Take 1 tablet by mouth every 8 hours as needed for Nausea/Vomiting. levonorgestrel (MIRENA) 20 mcg/24 hr (5 years) IUD Inserted in office ACLIDINIUM BROMIDE (TUDORZA PRESSAIR INHALATION) Inhale as instructed. Lancets (FREESTYLE LANCETS) lancets Test blood sugar(s) 2 times daily. Dx: DM2 250.00. Insulin: No LEVALBUTEROL HCL (XOPENEX INHALATION) Use 1 Vial via nebulizer every 6 hours as needed. Cholecalciferol, Vitamin D3, 5,000 unit tab Take 1 tablet by mouth once daily. blood sugar diagnostic (FREESTYLE LITE STRIPS) test strip Test blood sugar(s) 2 times daily. Dx: DM2 250.00. Insulin: No Blood-Glucose Meter (FREESTYLE LITE METER) monitoring kit Test sugars 2 time daily and when needed. budesonide-formoterol (SYMBICORT) 160-4.5 mcg/actuation inhaler Inhale 2 Puffs as instructed twice daily. ciclopirox (LOPROX) 0.77 % cream Apply 1 application to affected area twice daily. No current facility-administered medications for this visit. SOCIAL HISTORY Social History Marital status: Single Spouse name: Years of education: Number of children: Social History Main Topics Smoking status: Never Smoker Smokeless tobacco: Never Used Alcohol use: Yes 1.5 oz/week Glasses of Wine (5oz): 1 per week Drug use: No Sexual activity: Yes Partners with: Male control/protection: IUD Comment: micheal REVIEW OF SYSTEMS All other reviewed and negative other than HPI. OBJECTIVE: BP 118/62 Pulse 82 Temp 37.1 ?C (98.8 ?F) Resp 18 Wt 119.7 kg (264 lb) SpO2 96% BMI 39.10 kg/m? APPEARANCE Well appearing, alert, in no acute distress, well-hydrated, well nourished. EYES PERRLA, conjunctiva and sclera normal. EARS External ears normal, canals clear. TMs normal MICHAEL NOSE/SINUS Nares normal. Septum midline. Mucosa normal. No drainage. + MICHAEL maxillary sinus tenderness. THROAT normal, no erythema NECK Supple, no adenopathy HEART RRR with normal S1 and S2 LUNG clear to auscultation, No wheezing, rhonchi, rales. ASSESSMENT/PLAN: 1. Bacterial sinusitis - ICD9: 473.9, 041.9, ICD10: J32.9, B96.89 Vs separate viral illness. - The patient should also be given OTC cough and cold meds as needed, behind the counter Pseudoephedrine, warm salt water gargles, throat lozenges and/or OTC throat spray as needed and nasal saline gtts and suction prn for the first 5-7 days of treatment. - Supportive care with plenty of fluids, rest, and analgesia prn. - Follow up in 3-5 days if symptoms persist or worsen. - AMOXICILLIN 875 MG-POTASSIUM CLAVULANATE 125 MG TABLET- start in 3-5 days if not improving, sooner if worsening Phoenix Fountain PA-C CNOV Observed: 09/04/2017 Status: COMPLETED Source: [place] 3:30 PM [facility] REPOSITORY Office Visit ([facility]) MARIANA EARLY ([id number]) 1980 F Date Time Provider Department 09/04/17 3:30 PM [facility]EN[facility] FOUNTAIN) [facility] During your visit today, we recorded the following information about you: Temperature Pulse Respiration Blood pressure 98.8 degrees 82/minute 18/minute 118/62 Weight 119.7 kg Phoenix Fountain PA-C 09/04/2017 4:16 PM Signed 09/04/2017 Patient presents with: Cough: x 5 days dry cough Fever: x 5 days Ear Problem: x 5 days ears feel full Pain, Sinus: x 5 days sinuses tender Muscle Aches: x 5 days SUBJECTIVE: This is a 36 year old that is here today for Complaint(s) of cough x 5 days, mostly non-productive. + sinus pain and pressure. Intermittent ear pain/pressure. + body aches. Fever, intermittent, Tmax 103- resolved with tylenol. Denies SOB, vomiting, diarrhea. PAST MEDICAL HISTORY Diagnosis Date - Asthma Dr. Victorino Trevizo ([facility]) - Dystonia - Elevated LFTs - Fibromyalgia - Hyperlipidemia - Hypoglycemia unawareness associated with type 2 diabetes mellitus (HCC) - Hypothyroid - Migraine headache with aura Not always with aura; treated with Botox Injections by Dr. Ellis - Obesity - Obstructive sleep apnea treated with BiPAP Sleep Medicine Doctor--Dr. Lovett - Occipital neuralgia Dr. 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 Apply sparingly to area for rash/itching. Magnesium 250 mg tab On Hold metaxalone (SKELAXIN) 800 mg tablet Take 1 tablet by mouth three times daily as needed for Pain. fluconazole (DIFLUCAN) 100 mg tablet Take daily for 7 days then may take weekly for 8 weeks or as directed CALCIUM CARBONATE/VITAMIN D3 (VITAMIN D-3 ORAL) Take by mouth. varicella virus vaccine, PF, (VARIVAX) 1,350 unit/0.5 mL injection Give 1 dose then repeat dose in 4 to 8 weeks later glimepiride (AMARYL) 4 mg tablet TAKE 1 TABLET BY MOUTH TWICE DAILY. dulaglutide (TRULICITY) 1.5 mg/0.5 mL lindsay Inject 1.5 mL subcutaneously once each week. fluvoxaMINE Maleate (LUVOX) 25 mg tablet Take 1 tablet by mouth daily at bedtime. pantoprazole DR (PROTONIX) 40 mg tablet Take 1 tablet by mouth daily before breakfast. Take on empty stomach, 1/2 hr before meal. TAKING NEEDED NOW enalapril (VASOTEC) 5 mg tablet Take 1 tablet by mouth once daily. metFORMIN ER (GLUCOPHAGE XR) 500 mg 24 hr tablet Take 2 tablets by mouth twice daily. olopatadine (PATANOL) 0.1 % ophthalmic solution Use 1 Drop in both eyes twice daily. 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 LORazepam (ATIVAN) 1 mg tablet Take 1 tablet by mouth twice daily as needed for Anxiety. (Counseling Center provider) CRESTOR 5 mg tablet Take 1 tablet by mouth once daily. ondansetron orally disintegrating (ZOFRAN ODT) 4 mg disintegrating tablet Take 1 tablet by mouth every 8 hours as needed for Nausea/Vomiting. levonorgestrel (MIRENA) 20 mcg/24 hr (5 years) IUD Inserted in office ACLIDINIUM BROMIDE (TUDORZA PRESSAIR INHALATION) Inhale as instructed. Lancets (FREESTYLE LANCETS) lancets Test blood sugar(s) 2 times daily. Dx: DM2 250.00. Insulin: No LEVALBUTEROL HCL (XOPENEX INHALATION) Use 1 Vial via nebulizer every 6 hours as needed. Cholecalciferol, Vitamin D3, 5,000 unit tab Take 1 tablet by mouth once daily. blood sugar diagnostic (FREESTYLE LITE STRIPS) test strip Test blood sugar(s) 2 times daily. Dx: DM2 250.00. Insulin: No Blood-Glucose Meter (FREESTYLE LITE METER) monitoring kit Test sugars 2 time daily and when needed. budesonide-formoterol (SYMBICORT) 160-4.5 mcg/actuation inhaler Inhale 2 Puffs as instructed twice daily. ciclopirox (LOPROX) 0.77 % cream Apply 1 application to affected area twice daily. No current facility-administered medications for this visit. SOCIAL HISTORY Social History Marital status: Single Spouse name: Years of education: Number of children: Social History Main Topics Smoking status: Never Smoker Smokeless tobacco: Never Used Alcohol use: Yes 1.5 oz/week Glasses of Wine (5oz): 1 per week Drug use: No Sexual activity: Yes Partners with: Male control/protection: IUD Comment: mirena REVIEW OF SYSTEMS All other reviewed and negative other than HPI. OBJECTIVE: BP 118/62 Pulse 82 Temp 37.1 ?C (98.8 ?F) Resp 18 Wt 119.7 kg (264 lb) SpO2 96% BMI 39.10 kg/m? APPEARANCE Well appearing, alert, in no acute distress, well- hydrated, well nourished. EYES PERRLA, conjunctiva and sclera normal. EARS External ears normal, canals clear. TMs normal MICHAEL NOSE/SINUS Nares normal. Septum midline. Mucosa normal. No drainage. + MICHAEL maxillary sinus tenderness. THROAT normal, no erythema NECK Supple, no adenopathy HEART RRR with normal S1 and S2 LUNG clear to auscultation, No wheezing, rhonchi, rales. ASSESSMENT/PLAN: 1. Bacterial sinusitis - ICD9: 473.9, 041.9, ICD10: J32.9, B96.89 Vs separate viral illness. - The patient should also be given OTC cough and cold meds as needed, behind the counter Pseudoephedrine, warm salt water gargles, throat lozenges and/or OTC throat spray as needed and nasal saline gtts and suction prn for the first 5-7 days of treatment. - Supportive care with plenty of fluids, rest, and analgesia prn. - Follow up in 3-5 days if symptoms persist or worsen. - AMOXICILLIN 875 MG-POTASSIUM CLAVULANATE 125 MG TABLET- start in 3-5 days if not improving, sooner if worsening Phoenix Fountain PA-C Referring Provider: SELF [200] Allergies As of Date: 09/04/2017 Noted Allergy Reaction CIPROFLOXACIN 04/18/2011 14 - Other: See Comments Comments: Mother highly allergic to medication IMITREX (SUMATRIPTAN SUCCINATE) 04/18/2011 8 - GI Upset 11 - Vomiting NICKEL 05/14/2015 2 - Rash 4 - Hives 7 - Swelling ADHESIVE 04/18/2011 2 - Rash 14 - Other: See Comments Comments: Pulling of skin ASPIRIN 04/18/2011 8 - GI Upset CORTICOSTEROIDS (GLUCOCORTICOIDS) 08/01/2014 14 - Other: See Comments Comments: Increase in blood sugars CYMBALTA (DULOXETINE) 11/28/2013 5 - Intolerance EFFEXOR (VENLAFAXINE) 08/23/2015 14 - Other: See Comments LIPITOR (ATORVASTATIN CALCIUM) 08/26/2014 4 - Hives NARCOTICS (OPIOIDS - MORPHINE JERRICA*11/02/2011 14 - Other: See Comments Comments: Mood changes/depression worsen/if taking must be monitored closley NIFEDIPINE 08/27/2013 14 - Other: See Comments Comments: Chest pain heart racing and skin flushing SULFA (SULFONAMIDE ANTIBIOTICS) 04/18/2011 14 - Other: See Comments Comments: headaches TOMATOES 01/26/2017 8 - GI Upset TOPAMAX (TOPIRAMATE) 11/28/2013 5 - Intolerance ULTRAM (TRAMADOL) 08/01/2014 12 - Shortness of Breath WHEAT, WHEAT GERM 01/26/2017 2 - Rash Date Reviewed: 09/04/2017 Reviewed by: Phoenix Fountain - Fully Assessed Reason for Visit: Cough [28] Cmt: x 5 days dry cough Fever [47] Cmt: x 5 days Ear Problem [38] Cmt: x 5 days ears feel full Pain, Sinus [857] Cmt: x 5 days sinuses tender Muscle Aches [268] Cmt: x 5 days Primary Visit Diagnosis:Bacterial sinusitis [J32.9, B96.89] Order(s):amoxicillin-clavulanic acid (AUGMENTIN) 875-125 mg per tabletTake 1 tablet by mouth twice daily for 10 days.Disp: 20 tabletRfl: 0 Prescriptions as of 09/04/2017 Sig: TRIAMCINOLONE ACETONIDE 0.1 %* Apply 1 application to affect* MAGNESIUM 250 MG TABLET On Hold METAXALONE 800 MG TABLET Take 1 tablet by mouth three * FLUCONAZOLE 100 MG TABLET Take daily for 7 days then ma* VITAMIN D-3 ORAL Take by mouth. VARICELLA VIRUS VACCINE LIVE * Give 1 dose then repeat dose * GLIMEPIRIDE 4 MG TABLET TAKE 1 TABLET BY MOUTH TWICE * DULAGLUTIDE 1.5 MG/0.5 ML SUB* Inject 1.5 mL subcutaneously * FLUVOXAMINE 25 MG TABLET Take 1 tablet by mouth daily * PANTOPRAZOLE 40 MG TABLET,DEL* Take 1 tablet by mouth daily * ENALAPRIL MALEATE 5 MG TABLET Take 1 tablet by mouth once d* METFORMIN ER 500 MG TABLET,EX* Take 2 tablets by mouth twice* OLOPATADINE 0.1 % EYE DROPS Use 1 Drop in both eyes twice* LEVALBUTEROL 0.63 MG/3 ML LUIS* Use 3 mL via nebulizer every * LORAZEPAM 1 MG TABLET Take 1 tablet by mouth twice * CRESTOR 5 MG TABLET Take 1 tablet by mouth once d* ONDANSETRON 4 MG DISINTEGRATI* Take 1 tablet by mouth every * LEVONORGESTREL 20 MCG/24 HR (* Inserted in office TUDORZA PRESSAIR INHALATION Inhale as instructed. LANCETS Test blood sugar(s) 2 times d* XOPENEX INHALATION Use 1 Vial via nebulizer ever* CHOLECALCIFEROL (VITAMIN D3) * Take 1 tablet by mouth once d* BLOOD SUGAR DIAGNOSTIC STRIPS Test blood sugar(s) 2 times d* * BLOOD-GLUCOSE METER KIT Test sugars 2 time daily and * * BUDESONIDE-FORMOTEROL HFA 160* Inhale 2 Puffs as instructed * AMOXICILLIN 875 MG-POTASSIUM * Take 1 tablet by mouth twice * CICLOPIROX 0.77 % TOPICAL CRE* Apply 1 application to affect* Problem List As Of Date 09/04/2017 Noted Resolved Diabetes mellitus type 2, uncontrolled (HCC) [E*INVALID FOR*09/03/2015 Hyperlipidemia [E78.5] INVALID FOR* Obesity, Class III, BMI 40-49.9 (morbid obesity*INVALID FOR*09/03/2015 Hypothyroid [E03.9] INVALID FOR*09/03/2015 Obstructive sleep apnea [G47.33] INVALID FOR*09/03/2015 Asthma, moderate persistent [J45.40] INVALID FOR*09/03/2015 Albuminuria [R80.9] INVALID FOR*09/03/2015 Vitamin D deficiency [E55.9] INVALID FOR* Faintness [R55] INVALID FOR*09/03/2015 Type 2 diabetes, controlled, with neuropathy (H*INVALID FOR*02/05/2015 PCOS (polycystic ovarian syndrome) [E28.2] INVALID FOR* More... Migraine headache without aura [G43.009] INVALID FOR*09/03/2015 More... Restless legs syndrome (RLS) [G25.81] INVALID FOR*09/03/2015 More... Right ankle instability [M25.371] INVALID FOR*09/03/2015 Left ankle instability [M25.372] INVALID FOR*09/03/2015 Type 2 diabetes mellitus with hyperglycemia (HC* More... Type 2 diabetes mellitus with neurological john* More... Type 2 diabetes mellitus with polyneuropathy (H* Hypoglycemia unawareness associated with type 2* Obesity [E66.9] 09/05/2016 Hypothyroid [E03.9] More... Ovarian cyst, left [N83.202] INVALID FOR* Multiple thyroid nodules [E04.2] INVALID FOR* Bilateral low back pain with sciatica [M54.40] INVALID FOR* Asymptomatic PVCs [I49.3] INVALID FOR* Morbid obesity with BMI of 40.0-44.9, adult (HC*INVALID FOR*05/14/2017 Statin intolerance [Z78.9] INVALID FOR* More... Hypogammaglobulinemia (HCC) [D80.1] INVALID FOR* Recurrent infections [B99.9] INVALID FOR* Allergic rhinitis [J30.9] INVALID FOR* Asthma, well controlled [J45.909] INVALID FOR* MEGHAN on CPAP [G47.33, Z99.89] INVALID FOR* Obesity (BMI 30-39.9) [E66.9] INVALID FOR* Prescriptions ordered this encounter Disp Refills Start End AMOXICILLIN 875 MG-POTASSIUM CLAVULA* 20 t* 0 09/04/2017 09/14/2017 Class: Print RX Route: ORAL Sig: Take 1 tablet by mouth twice daily for 10 days. Encounter Status:Closed by [facility]EN[facility] FOUNTAIN PA-C on 09/04/17 PROGRESS Observed: 08/31/2017 Status: COMPLETED Source: [place] 3:39 PM [facility] [place] REPOSITORY O ID: [id number] Author: Aliyah Goss Service: (none) Author Type: Physician Type: Progress Notes Filed: 08/31/2017 11:32 PM Note Text: ? Aliyah Goss DPM Department of Podiatry [address] [place] [id number] Dept: [phone] Dept 08/31/2017 Follow Up Podiatric Office Visit: HPI: Mariana Early is a 36 year old female. Patient presents for follow up for plantar fasciitis. Patient reports constant 4/10 pain that is worsened with activity. Patient has been stretching at home, ice, and wears her ASO. Patient was prescribed Metaxalone 20 mg TID by PCP; which provides relief about 10% of the time. Patient is unable to go to physical therapy due to job Physical Exam: Constitutional: Pt is a well developed 36 year old female who is alert, oriented and cooperative Eyes: Following during examination. No redness or drainage. Respiratory: RR normal and nonlabored. Even breathing. No evidence of distress or shortness of breath. Psychology: Patient is engaged during conversation. Normal affect and mood. Does not appear depressed or anxious during encounter. Vascular: Dorsalis pedis and posterior tibial pulses palpable as b/l Capillary Fill time < 5 seconds to digits 1-5 b/l Skin temperature warm to warm proximal to distal b/l Hair growth present to digits Neurological: intact light touch/epicritic sensation - tinel to b/l feet Dermatological: Skin appears well hydrated and supple. good color, texture, turgor. Callosities absent.Open lesions absent. Wound: Not present. Musculoskeletal/Orthopaedic: Patient has pain to palpation of b/l medial calcaneal tubercle Foot type is neutral structurally AJ ROM is decreased with knee extended and flexed 1st MPJ is full when loaded and no pain or crepitus are noted with ROM. MTJ, STJ are full and free of pain and crepitus. +5/5 muscle strength dorsiflexion, plantarflexion, inversion, eversion b/l ASSESSMENT: (M72.2) Bilateral plantar fasciitis (primary encounter diagnosis) PLAN: Discussed ongoing b/l heel pain. Discussed continued stretching, icing and wearing good shoes/inserts. Discussed steroid injection but she declined due to being diabetic and steroids causing temporary rise in sugars. She states that steroid injection can cause her sugars to increase >600 Discussed physical therapy. She will consider if she can make it work with her schedule Night splint given. f/u in 5-6 weeks. If no improvement, one may consider temporary immoblization. Only concern is it may lead to exacerbation of contralateral limb. BIANCA Sanchez Observed: 08/31/2017 Status: COMPLETED Source: [place] 3:25 PM [facility] REPOSITORY Office Visit (PODIWS) MARIANA EARLY ([id number]) 1980 F Date Time Provider Department 08/31/17 3:25 PM ALIYAH GOSS PODCHANDA During your visit today, we recorded the following information about you: Aliyah Goss DPM 08/31/2017 11:32 PM Signed ? Aliyah Goss DPM Department of Podiatry [address] [facility] [address] Dept: [phone] Dept 08/31/2017 Follow Up Podiatric Office Visit: HPI: Mariana Early is a 36 year old female. Patient presents for follow up for plantar fasciitis. Patient reports constant 4/10 pain that is worsened with activity. Patient has been stretching at home, ice, and wears her ASO. Patient was prescribed Metaxalone 20 mg TID by PCP; which provides relief about 10% of the time. Patient is unable to go to physical therapy due to job Physical Exam: Constitutional: Pt is a well developed 36 year old female who is alert, oriented and cooperative Eyes: Following during examination. No redness or drainage. Respiratory: RR normal and nonlabored. Even breathing. No evidence of distress or shortness of breath. Psychology: Patient is engaged during conversation. Normal affect and mood. Does not appear depressed or anxious during encounter. Vascular: Dorsalis pedis and posterior tibial pulses palpable as b/l Capillary Fill time < 5 seconds to digits 1-5 b/l Skin temperature warm to warm proximal to distal b/l Hair growth present to digits Neurological: intact light touch/epicritic sensation - tinel to b/l feet Dermatological: Skin appears well hydrated and supple. good color, texture, turgor. Callosities absent.Open lesions absent. Wound: Not present. Musculoskeletal/Orthopaedic: Patient has pain to palpation of b/l medial calcaneal tubercle Foot type is neutral structurally AJ ROM is decreased with knee extended and flexed 1st MPJ is full when loaded and no pain or crepitus are noted with ROM. MTJ, STJ are full and free of pain and crepitus. +5/5 muscle strength dorsiflexion, plantarflexion, inversion, eversion b/l ASSESSMENT: (M72.2) Bilateral plantar fasciitis (primary encounter diagnosis) PLAN: Discussed ongoing b/l heel pain. Discussed continued stretching, icing and wearing good shoes/inserts. Discussed steroid injection but she declined due to being diabetic and steroids causing temporary rise in sugars. She states that steroid injection can cause her sugars to increase >600 Discussed physical therapy. She will consider if she can make it work with her schedule Night splint given. f/u in 5-6 weeks. If no improvement, one may consider temporary immoblization. Only concern is it may lead to exacerbation of contralateral limb. Aliyah Goss DPM Referring Provider: ALIYAH GOSS [[id number]] Allergies As of Date: 08/31/2017 Noted Allergy Reaction CIPROFLOXACIN 04/18/2011 14 - Other: See Comments Comments: Mother highly allergic to medication IMITREX (SUMATRIPTAN SUCCINATE) 04/18/2011 8 - GI Upset 11 - Vomiting NICKEL 05/14/2015 2 - Rash 4 - Hives 7 - Swelling ADHESIVE 04/18/2011 2 - Rash 14 - Other: See Comments Comments: Pulling of skin ASPIRIN 04/18/2011 8 - GI Upset CORTICOSTEROIDS (GLUCOCORTICOIDS) 08/01/2014 14 - Other: See Comments Comments: Increase in blood sugars CYMBALTA (DULOXETINE) 11/28/2013 5 - Intolerance EFFEXOR (VENLAFAXINE) 08/23/2015 14 - Other: See Comments LIPITOR (ATORVASTATIN CALCIUM) 08/26/2014 4 - Hives NARCOTICS (OPIOIDS - MORPHINE JERRICA*11/02/2011 14 - Other: See Comments Comments: Mood changes/depression worsen/if taking must be monitored closley NIFEDIPINE 08/27/2013 14 - Other: See Comments Comments: Chest pain heart racing and skin flushing SULFA (SULFONAMIDE ANTIBIOTICS) 04/18/2011 14 - Other: See Comments Comments: headaches TOMATOES 01/26/2017 8 - GI Upset TOPAMAX (TOPIRAMATE) 11/28/2013 5 - Intolerance ULTRAM (TRAMADOL) 08/01/2014 12 - Shortness of Breath WHEAT, WHEAT GERM 01/26/2017 2 - Rash Date Reviewed: 08/27/2017 Reviewed by: Brit Blum LPN - Fully Assessed Primary Visit Diagnosis:Bilateral plantar fasciitis [M72.2] Order(s):NIGHT SPLINT [[id number]] Order #: [id number] Prescriptions as of 08/31/2017 Sig: TRIAMCINOLONE ACETONIDE 0.1 %* Apply 1 application to affect* MAGNESIUM 250 MG TABLET On Hold METAXALONE 800 MG TABLET Take 1 tablet by mouth three * CICLOPIROX 0.77 % TOPICAL CRE* Apply 1 application to affect* FLUCONAZOLE 100 MG TABLET Take daily for 7 days then ma* VITAMIN D-3 ORAL Take by mouth. VARICELLA VIRUS VACCINE LIVE * Give 1 dose then repeat dose * GLIMEPIRIDE 4 MG TABLET TAKE 1 TABLET BY MOUTH TWICE * DULAGLUTIDE 1.5 MG/0.5 ML SUB* Inject 1.5 mL subcutaneously * FLUVOXAMINE 25 MG TABLET Take 1 tablet by mouth daily * PANTOPRAZOLE 40 MG TABLET,DEL* Take 1 tablet by mouth daily * ENALAPRIL MALEATE 5 MG TABLET Take 1 tablet by mouth once d* METFORMIN ER 500 MG TABLET,EX* Take 2 tablets by mouth twice* OLOPATADINE 0.1 % EYE DROPS Use 1 Drop in both eyes twice* LEVALBUTEROL 0.63 MG/3 ML LUIS* Use 3 mL via nebulizer every * LORAZEPAM 1 MG TABLET Take 1 tablet by mouth twice * CRESTOR 5 MG TABLET Take 1 tablet by mouth once d* ONDANSETRON 4 MG DISINTEGRATI* Take 1 tablet by mouth every * LEVONORGESTREL 20 MCG/24 HR (* Inserted in office TUDORZA PRESSAIR INHALATION Inhale as instructed. LANCETS Test blood sugar(s) 2 times d* XOPENEX INHALATION Use 1 Vial via nebulizer ever* CHOLECALCIFEROL (VITAMIN D3) * Take 1 tablet by mouth once d* BLOOD SUGAR DIAGNOSTIC STRIPS Test blood sugar(s) 2 times d* * BLOOD-GLUCOSE METER KIT Test sugars 2 time daily and * * BUDESONIDE-FORMOTEROL HFA 160* Inhale 2 Puffs as instructed * Problem List As Of Date 08/31/2017 Noted Resolved Diabetes mellitus type 2, uncontrolled (HCC) [E*INVALID FOR*09/03/2015 Hyperlipidemia [E78.5] INVALID FOR* Obesity, Class III, BMI 40-49.9 (morbid obesity*INVALID FOR*09/03/2015 Hypothyroid [E03.9] INVALID FOR*09/03/2015 Obstructive sleep apnea [G47.33] INVALID FOR*09/03/2015 Asthma, moderate persistent [J45.40] INVALID FOR*09/03/2015 Albuminuria [R80.9] INVALID FOR*09/03/2015 Vitamin D deficiency [E55.9] INVALID FOR* Faintness [R55] INVALID FOR*09/03/2015 Type 2 diabetes, controlled, with neuropathy (H*INVALID FOR*02/05/2015 PCOS (polycystic ovarian syndrome) [E28.2] INVALID FOR* More... Migraine headache without aura [G43.009] INVALID FOR*09/03/2015 More... Restless legs syndrome (RLS) [G25.81] INVALID FOR*09/03/2015 More... Right ankle instability [M25.371] INVALID FOR*09/03/2015 Left ankle instability [M25.372] INVALID FOR*09/03/2015 Type 2 diabetes mellitus with hyperglycemia (HC* More... Type 2 diabetes mellitus with neurological john* More... Type 2 diabetes mellitus with polyneuropathy (H* Hypoglycemia unawareness associated with type 2* Obesity [E66.9] 09/05/2016 Hypothyroid [E03.9] More... Ovarian cyst, left [N83.202] INVALID FOR* Multiple thyroid nodules [E04.2] INVALID FOR* Bilateral low back pain with sciatica [M54.40] INVALID FOR* Asymptomatic PVCs [I49.3] INVALID FOR* Morbid obesity with BMI of 40.0-44.9, adult (HC*INVALID FOR*05/14/2017 Statin intolerance [Z78.9] INVALID FOR* More... Hypogammaglobulinemia (HCC) [D80.1] INVALID FOR* Recurrent infections [B99.9] INVALID FOR* Allergic rhinitis [J30.9] INVALID FOR* Asthma, well controlled [J45.909] INVALID FOR* MEGHAN on CPAP [G47.33, Z99.89] INVALID FOR* Obesity (BMI 30-39.9) [E66.9] INVALID FOR* Encounter Status:Closed by ALIYAH GOSS DPM on 08/31/17 PROGRESS Observed: 08/27/2017 Status: COMPLETED Source: [place] 3:49 PM [facility] HNO ID: [id number] Author: Stoney Blue Service: (none) Author Type: Physician Type: Progress Notes Filed: 09/10/2017 11:42 PM Note Text: Patient presents with: SMA-Previsit Assessment: weight loss Weight Loss Visit #5 SUBJECTIVE: Mariana Early is a 36 year old year old lady here today for Weight Loss SMA appointment for review of medical conditions. Attending the Weight Loss SMA and seen afterwards on for 5th and last weight loss appointment for bariatric surgery requirement. Form completed for [facility]. Ciclopirox effective for Radha intertrigo. Nickel allergy noted. Cortisone cream takes longer to clear rash. TAC tolerated in the past. Using cups to measure food now. Practicing for how will need to eat after bariatric surgery. Working up to 6 small meals a day. Not quite there yet. High fiber bread now with peanut butter or cream cheese or piece of cheese. Noted that work asking for letter about RTW issues. Needs to get DM controlled. Hoping surgery effective. Working on disability. Had worked on this before with prior surgeon. Physical and psychological reasons. [facility]; was given lorazepam prn in the past. Planning on shelter disability. Overwhelmed easily. Back issues ([facility] provider) also affects ability to work. PAST MEDICAL HISTORY Diagnosis Date - Asthma Dr. Victorino Trevizo ([facility]) - Dystonia - Elevated LFTs - Fibromyalgia - Hyperlipidemia - Hypoglycemia unawareness associated with type 2 diabetes mellitus (HCC) - Hypothyroid - Migraine headache with aura Not always with aura; treated with Botox Injections by Dr. Ellis - Obesity - Obstructive sleep apnea treated with BiPAP Sleep Medicine Doctor--Dr. Lovett - Occipital neuralgia Dr. 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 ciclopirox (LOPROX) 0.77 % cream Apply 1 application to affected area twice daily. fluconazole (DIFLUCAN) 100 mg tablet Take daily for 7 days then may take weekly for 8 weeks or as directed CALCIUM CARBONATE/VITAMIN D3 (VITAMIN D-3 ORAL) Take by mouth. varicella virus vaccine, PF, (VARIVAX) 1,350 unit/0.5 mL injection Give 1 dose then repeat dose in 4 to 8 weeks later glimepiride (AMARYL) 4 mg tablet TAKE 1 TABLET BY MOUTH TWICE DAILY. dulaglutide (TRULICITY) 1.5 mg/0.5 mL pnij Inject 1.5 mL subcutaneously once each week. fluvoxaMINE Maleate (LUVOX) 25 mg tablet Take 1 tablet by mouth daily at bedtime. pantoprazole DR (PROTONIX) 40 mg tablet Take 1 tablet by mouth daily before breakfast. Take on empty stomach, 1/2 hr before meal. TAKING NEEDED NOW enalapril (VASOTEC) 5 mg tablet Take 1 tablet by mouth once daily. metFORMIN ER (GLUCOPHAGE XR) 500 mg 24 hr tablet Take 2 tablets by mouth twice daily. olopatadine (PATANOL) 0.1 % ophthalmic solution Use 1 Drop in both eyes twice daily. 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 LORazepam (ATIVAN) 1 mg tablet Take 1 tablet by mouth twice daily as needed for Anxiety. ([facility] provider) CRESTOR 5 mg tablet Take 1 tablet by mouth once daily. ondansetron orally disintegrating (ZOFRAN ODT) 4 mg disintegrating tablet Take 1 tablet by mouth every 8 hours as needed for Nausea/Vomiting. levonorgestrel (MIRENA) 20 mcg/24 hr (5 years) IUD Inserted in office ACLIDINIUM BROMIDE (TUDORZA PRESSAIR INHALATION) Inhale as instructed. Lancets (FREESTYLE LANCETS) lancets Test blood sugar(s) 2 times daily. Dx: DM2 250.00. Insulin: No LEVALBUTEROL HCL (XOPENEX INHALATION) Use 1 Vial via nebulizer every 6 hours as needed. Cholecalciferol, Vitamin D3, 5,000 unit tab Take 1 tablet by mouth once daily. blood sugar diagnostic (FREESTYLE LITE STRIPS) test strip Test blood sugar(s) 2 times daily. Dx: DM2 250.00. Insulin: No Blood-Glucose Meter (FREESTYLE LITE METER) monitoring kit Test sugars 2 time daily and when needed. budesonide-formoterol (SYMBICORT) 160-4.5 mcg/actuation inhaler Inhale 2 Puffs as instructed twice daily. triamcinolone acetonide (KENALOG) 0.1 % cream Apply 1 application to affected area three times daily. Apply sparingly to area for rash/itching. No current facility-administered medications for this visit. OBJECTIVE: BP 122/70 Pulse 104 Resp 12 Wt 121.6 kg (268 lb) BMI 39.69 kg/m? Patient is alert, oriented times 3, no apparent distress, affect is bright, reactive. However, tearful when discussed issues regarding ability to work and getting overwhelmed. Last 5 Encounter Wt Readings: Date: Wt: 08/27/2017 121.6 kg (268 lb) 08/18/2017 120.2 kg (265 lb) 07/04/2017 122.9 kg (271 lb) 05/28/2017 122.2 kg (269 lb 6.4 oz) 05/14/2017 122 kg (269 lb) Heart: Regular rate, rhythm, no murmurs, gallops, rubs. Lungs: Clear to auscultation, bilaterally, breathing non labored. Ext: No cyanosis, clubbing, or edema. ASSESSMENT AND PLAN: Encounter Diagnosis ICD-10-CM 1. Obesity (BMI 30-39.9) E66.9 2. Nickel allergy Z91.09 skin reaction 3. Candidal intertrigo B37.2 responded to Ciclopirox 4. Anxiety and depression F41.9 F32.9 Patient on Luvox and prn lorazepam Above issues addressed with patient. Patient involved in shared decision making for management of her medical issues. History and medications reviewed. Epic updated as needed Refills taken care of and meds adjusted as indicated after reviewed history, exam and labs. Health Maintenance reviewed. Updated record and/or ordered tests as recorded. Encouraged on efforts at healthy diet and regular exercise and adequate sleep. Needs to keep working on diet and exercise with lifestyle changes for effective weight loss. Synopsis reviewed for weight. Weight back up 3 pounds from July appointment, but still down 3 pounds compared to June appointment. Still needs to work on portion control at least 80% of the time plus regular exercise. Discussed with group fresh fruit is fine but needs to still take into account portions since still has carbs and calories. Also reviewed options for protein in diet--Elevation from [employer] whey protein has worked well for several of the [facility] attendees today. Goals from last appointment reviewed and updated SMART goals. Form completed for Bariatric Surgery 5th and final appointment with me for weight loss--will complete rest of weight loss efforts prior to bariatric surgery with their clasp machine operator. Also discussed that rash finally improved with change in treatment to ciclopirox. Continue present management. Treat nickel allergy with TAC. Reviewed that would complete forms if needed for disability given issues with anxiety and depression along with her other medical issue, though noted that she does want to be able to do some work. 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 Does not handle stressors well. Noted that not sure when will be able to do surgery since told that someone else requested vacation when she was planning on doing bariatric surgery. Will see if able to get things worked out with surgeon, [employer] that still needs to approve the surgery, and work. Note that work wants something from me regarding work release and return to work--discussed with patient that I would follow surgeon's recommendations regarding time off and when able to return to work. Stoney Blue MD CNOV Observed: 08/27/2017 Status: COMPLETED Source: [place] 3:00 PM [facility] REPOSITORY Office Visit (INTMWS) MARIANA EARLY ([id number]) 1980 F Date Time Provider Department 08/27/17 3:00 PM STONEY BLUE INTLoreneWS During your visit today, we recorded the following information about you: Temperature Pulse Respiration Blood pressure 98.9 degrees 104/minute 12/minute 122/70 Weight 121.6 kg Stoney Blue MD 08/27/2017 3:49 PM Signed Smart Goals Continue efforts at nutrition goals for Bariatric surgery Continue eating the 4 to 5 meals a day working toward 6 small meals a day Continue Abhinav Zero Ketobark to help with your sweet tooth. Exercises goals: 10 minute blocks of exercises--aerobic or resistance training Goal to work up to 10 hours a week Stoney Blue MD 09/10/2017 11:42 PM Signed Patient presents with: SMA-Previsit Assessment: weight loss Weight Loss Visit #5 SUBJECTIVE: Mariana Early is a 36 year old year old lady here today for Weight Loss SMA appointment for review of medical conditions. Attending the Weight Loss SMA and seen afterwards 1 on for 5th and last weight loss appointment for bariatric surgery requirement. Form completed for [facility]. Ciclopirox effective for Radha intertrigo. Nickel allergy noted. Cortisone cream takes longer to clear rash. TAC tolerated in the past. Using cups to measure food now. Practicing for how will need to eat after bariatric surgery. Working up to 6 small meals a day. Not quite there yet. High fiber bread now with peanut butter or cream cheese or piece of cheese. Noted that work asking for letter about RTW issues. Needs to get DM controlled. Hoping surgery effective. Working on disability. Had worked on this before with prior surgeon. Physical and psychological reasons. [facility]; was given lorazepam prn in the past. Planning on shelter disability. Overwhelmed easily. Back issues ([facility] provider) also affects ability to work. PAST MEDICAL HISTORY Diagnosis Date - Asthma Dr. Victorino Trevizo ([facility]) - Dystonia - Elevated LFTs - Fibromyalgia - Hyperlipidemia - Hypoglycemia unawareness associated with type 2 diabetes mellitus (HCC) - Hypothyroid - Migraine headache with aura Not always with aura; treated with Botox Injections by Dr. Ellis - Obesity - Obstructive sleep apnea treated with BiPAP Sleep Medicine Doctor--Dr. Lovett - Occipital neuralgia Dr. 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 ciclopirox (LOPROX) 0.77 % cream Apply 1 application to affected area twice daily. fluconazole (DIFLUCAN) 100 mg tablet Take daily for 7 days then may take weekly for 8 weeks or as directed CALCIUM CARBONATE/VITAMIN D3 (VITAMIN D-3 ORAL) Take by mouth. varicella virus vaccine, PF, (VARIVAX) 1,350 unit/0.5 mL injection Give 1 dose then repeat dose in 4 to 8 weeks later glimepiride (AMARYL) 4 mg tablet TAKE 1 TABLET BY MOUTH TWICE DAILY. dulaglutide (TRULICITY) 1.5 mg/0.5 mL pnij Inject 1.5 mL subcutaneously once each week. fluvoxaMINE Maleate (LUVOX) 25 mg tablet Take 1 tablet by mouth daily at bedtime. pantoprazole DR (PROTONIX) 40 mg tablet Take 1 tablet by mouth daily before breakfast. Take on empty stomach, 1/2 hr before meal. TAKING NEEDED NOW enalapril (VASOTEC) 5 mg tablet Take 1 tablet by mouth once daily. metFORMIN ER (GLUCOPHAGE XR) 500 mg 24 hr tablet Take 2 tablets by mouth twice daily. olopatadine (PATANOL) 0.1 % ophthalmic solution Use 1 Drop in both eyes twice daily. 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 LORazepam (ATIVAN) 1 mg tablet Take 1 tablet by mouth twice daily as needed for Anxiety. ([facility]) CRESTOR 5 mg tablet Take 1 tablet by mouth once daily. ondansetron orally disintegrating (ZOFRAN ODT) 4 mg disintegrating tablet Take 1 tablet by mouth every 8 hours as needed for Nausea/Vomiting. levonorgestrel (MIRENA) 20 mcg/24 hr (5 years) IUD Inserted in office ACLIDINIUM BROMIDE (TUDORZA PRESSAIR INHALATION) Inhale as instructed. Lancets (FREESTYLE LANCETS) lancets Test blood sugar(s) 2 times daily. Dx: DM2 250.00. Insulin: No LEVALBUTEROL HCL (XOPENEX INHALATION) Use 1 Vial via nebulizer every 6 hours as needed. Cholecalciferol, Vitamin D3, 5,000 unit tab Take 1 tablet by mouth once daily. blood sugar diagnostic (FREESTYLE LITE STRIPS) test strip Test blood sugar(s) 2 times daily. Dx: DM2 250.00. Insulin: No Blood-Glucose Meter (FREESTYLE LITE METER) monitoring kit Test sugars 2 time daily and when needed. budesonide-formoterol (SYMBICORT) 160-4.5 mcg/actuation inhaler Inhale 2 Puffs as instructed twice daily. triamcinolone acetonide (KENALOG) 0.1 % cream Apply 1 application to affected area three times daily. Apply sparingly to area for rash/itching. No current facility-administered medications for this visit. OBJECTIVE: BP 122/70 Pulse 104 Resp 12 Wt 121.6 kg (268 lb) BMI 39.69 kg/m? Patient is alert, oriented times 3, no apparent distress, affect is bright, reactive. However, tearful when discussed issues regarding ability to work and getting overwhelmed. Last 5 Encounter Wt Readings: Date: Wt: 08/27/2017 121.6 kg (268 lb) 08/18/2017 120.2 kg (265 lb) 07/04/2017 122.9 kg (271 lb) 05/28/2017 122.2 kg (269 lb 6.4 oz) 05/14/2017 122 kg (269 lb) Heart: Regular rate, rhythm, no murmurs, gallops, rubs. Lungs: Clear to auscultation, bilaterally, breathing non labored. Ext: No cyanosis, clubbing, or edema. ASSESSMENT AND PLAN: Encounter Diagnosis ICD-10-CM 1. Obesity (BMI 30-39.9) E66.9 2. Nickel allergy Z91.09 skin reaction 3. Candidal intertrigo B37.2 responded to Ciclopirox 4. Anxiety and depression F41.9 F32.9 Patient on Luvox and prn lorazepam Above issues addressed with patient. Patient involved in shared decision making for management of her medical issues. History and medications reviewed. Epic updated as needed Refills taken care of and meds adjusted as indicated after reviewed history, exam and labs. Health Maintenance reviewed. Updated record and/or ordered tests as recorded. Encouraged on efforts at healthy diet and regular exercise and adequate sleep. Needs to keep working on diet and exercise with lifestyle changes for effective weight loss. Synopsis reviewed for weight. Weight back up 3 pounds from July appointment, but still down 3 pounds compared to June appointment. Still needs to work on portion control at least 80% of the time plus regular exercise. Discussed with group fresh fruit is fine but needs to still take into account portions since still has carbs and calories. Also reviewed options for protein in diet--Elevation from [employer] whey protein has worked well for several of the [facility] attendees today. Goals from last appointment reviewed and updated SMART goals. Form completed for Bariatric Surgery 5th and final appointment with me for weight loss--will complete rest of weight loss efforts prior to bariatric surgery with their clasp machine operator. Also discussed that rash finally improved with change in treatment to ciclopirox. Continue present management. Treat nickel allergy with TAC. Reviewed that would complete forms if needed for disability given issues with anxiety and depression along with her other medical issue, though noted that she does want to be able to do some work. 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 Does not handle stressors well. Noted that not sure when will be able to do surgery since told that someone else requested vacation when she was planning on doing bariatric surgery. Will see if able to get things worked out with surgeon, [employer] that still needs to approve the surgery, and work. Note that work wants something from me regarding work release and return to work--discussed with patient that I would follow surgeon's recommendations regarding time off and when able to return to work. Stoney Blue MD Referring Provider: STONEY BLUE [[id number]] Allergies As of Date: 08/27/2017 Noted Allergy Reaction CIPROFLOXACIN 04/18/2011 14 - Other: See Comments Comments: Mother highly allergic to medication IMITREX (SUMATRIPTAN SUCCINATE) 04/18/2011 8 - GI Upset 11 - Vomiting NICKEL 05/14/2015 2 - Rash 4 - Hives 7 - Swelling ADHESIVE 04/18/2011 2 - Rash 14 - Other: See Comments Comments: Pulling of skin ASPIRIN 04/18/2011 8 - GI Upset CORTICOSTEROIDS (GLUCOCORTICOIDS) 08/01/2014 14 - Other: See Comments Comments: Increase in blood sugars CYMBALTA (DULOXETINE) 11/28/2013 5 - Intolerance EFFEXOR (VENLAFAXINE) 08/23/2015 14 - Other: See Comments LIPITOR (ATORVASTATIN CALCIUM) 08/26/2014 4 - Hives NARCOTICS (OPIOIDS - MORPHINE JERRICA*11/02/2011 14 - Other: See Comments Comments: Mood changes/depression worsen/if taking must be monitored closley NIFEDIPINE 08/27/2013 14 - Other: See Comments Comments: Chest pain heart racing and skin flushing SULFA (SULFONAMIDE ANTIBIOTICS) 04/18/2011 14 - Other: See Comments Comments: headaches TOMATOES 01/26/2017 8 - GI Upset TOPAMAX (TOPIRAMATE) 11/28/2013 5 - Intolerance ULTRAM (TRAMADOL) 08/01/2014 12 - Shortness of Breath WHEAT, WHEAT GERM 01/26/2017 2 - Rash Date Reviewed: 08/27/2017 Reviewed by: Brit Blum LPN - Fully Assessed Reason for Visit: Weight Loss SMA [Other] Reason For Visit History Recorded Primary Visit Diagnosis:Obesity (BMI 30-39.9) [E66.9] Other Visit Diagnoses:Nickel allergy [Z91.09] Comment:skin reaction Candidal intertrigo [B37.2] Comment:responded to Ciclopirox Anxiety and depression [F41.9, F32.9] Comment:Patient on Luvox and prn lorazepam Order(s):triamcinolone acetonide (KENALOG) 0.1 % creamApply 1 application to affected area three times daily. Apply sparingly to area for rash/itching.Disp: 30 gRfl: 1 Prescriptions as of 08/27/2017 Sig: MAGNESIUM 250 MG TABLET On Hold METAXALONE 800 MG TABLET Take 1 tablet by mouth three * CICLOPIROX 0.77 % TOPICAL CRE* Apply 1 application to affect* FLUCONAZOLE 100 MG TABLET Take daily for 7 days then ma* VITAMIN D-3 ORAL Take by mouth. VARICELLA VIRUS VACCINE LIVE * Give 1 dose then repeat dose * GLIMEPIRIDE 4 MG TABLET TAKE 1 TABLET BY MOUTH TWICE * DULAGLUTIDE 1.5 MG/0.5 ML SUB* Inject 1.5 mL subcutaneously * FLUVOXAMINE 25 MG TABLET Take 1 tablet by mouth daily * PANTOPRAZOLE 40 MG TABLET,DEL* Take 1 tablet by mouth daily * ENALAPRIL MALEATE 5 MG TABLET Take 1 tablet by mouth once d* METFORMIN ER 500 MG TABLET,EX* Take 2 tablets by mouth twice* OLOPATADINE 0.1 % EYE DROPS Use 1 Drop in both eyes twice* LEVALBUTEROL 0.63 MG/3 ML LUIS* Use 3 mL via nebulizer every * LORAZEPAM 1 MG TABLET Take 1 tablet by mouth twice * CRESTOR 5 MG TABLET Take 1 tablet by mouth once d* ONDANSETRON 4 MG DISINTEGRATI* Take 1 tablet by mouth every * LEVONORGESTREL 20 MCG/24 HR (* Inserted in office TUDORZA PRESSAIR INHALATION Inhale as instructed. LANCETS Test blood sugar(s) 2 times d* XOPENEX INHALATION Use 1 Vial via nebulizer ever* CHOLECALCIFEROL (VITAMIN D3) * Take 1 tablet by mouth once d* BLOOD SUGAR DIAGNOSTIC STRIPS Test blood sugar(s) 2 times d* * BLOOD-GLUCOSE METER KIT Test sugars 2 time daily and * * BUDESONIDE-FORMOTEROL HFA 160* Inhale 2 Puffs as instructed * TRIAMCINOLONE ACETONIDE 0.1 %* Apply 1 application to affect* Problem List As Of Date 08/27/2017 Noted Resolved Diabetes mellitus type 2, uncontrolled (HCC) [E*INVALID FOR*09/03/2015 Hyperlipidemia [E78.5] INVALID FOR* Obesity, Class III, BMI 40-49.9 (morbid obesity*INVALID FOR*09/03/2015 Hypothyroid [E03.9] INVALID FOR*09/03/2015 Obstructive sleep apnea [G47.33] INVALID FOR*09/03/2015 Asthma, moderate persistent [J45.40] INVALID FOR*09/03/2015 Albuminuria [R80.9] INVALID FOR*09/03/2015 Vitamin D deficiency [E55.9] INVALID FOR* Faintness [R55] INVALID FOR*09/03/2015 Type 2 diabetes, controlled, with neuropathy (H*INVALID FOR*02/05/2015 PCOS (polycystic ovarian syndrome) [E28.2] INVALID FOR* More... Migraine headache without aura [G43.009] INVALID FOR*09/03/2015 More... Restless legs syndrome (RLS) [G25.81] INVALID FOR*09/03/2015 More... Right ankle instability [M25.371] INVALID FOR*09/03/2015 Left ankle instability [M25.372] INVALID FOR*09/03/2015 Type 2 diabetes mellitus with hyperglycemia (HC* More... Type 2 diabetes mellitus with neurological john* More... Type 2 diabetes mellitus with polyneuropathy (H* Hypoglycemia unawareness associated with type 2* Obesity [E66.9] 09/05/2016 Hypothyroid [E03.9] More... Ovarian cyst, left [N83.202] INVALID FOR* Multiple thyroid nodules [E04.2] INVALID FOR* Bilateral low back pain with sciatica [M54.40] INVALID FOR* Asymptomatic PVCs [I49.3] INVALID FOR* Morbid obesity with BMI of 40.0-44.9, adult (HC*INVALID FOR*05/14/2017 Statin intolerance [Z78.9] INVALID FOR* More... Hypogammaglobulinemia (HCC) [D80.1] INVALID FOR* Recurrent infections [B99.9] INVALID FOR* Allergic rhinitis [J30.9] INVALID FOR* Asthma, well controlled [J45.909] INVALID FOR* MEGHAN on CPAP [G47.33, Z99.89] INVALID FOR* Obesity (BMI 30-39.9) [E66.9] INVALID FOR* Other instructions from your clinician: Smart Goals Continue efforts at nutrition goals for Bariatric surgery Continue eating the 4 to 5 meals a day working toward 6 small meals a day Continue Abhinav Zero Ketobark to help with your sweet tooth. Exercises goals: 10 minute blocks of exercises--aerobic or resistance training Goal to work up to 10 hours a week Prescriptions ordered this encounter Disp Refills Start End TRIAMCINOLONE ACETONIDE 0.1 % TOPICA* 30 g 1 08/27/2017 Cmt: May dispense as two 15 gram tubes Route: TOPICAL Sig: Apply 1 application to affected area three times daily. Apply sparingly to area for rash/itching. Disposition: Return for January follow up (1 on 1). Follow-up and Disposition History Recorded Letter Text [facility] Stoney Blue MD [address], [place] [address] August 27, 2017 Mariana Early : 1980 To whom it may concern: This letter is to verify that my patient will not be able to return to work right after surgery. She will need to follow the surgeons protocol which would be to be off work for approximately 2 months. Return to work date would be determined by her surgeon. She will be having major surgery and patient typically cannot return to work for at least 2 months while they are recovering. Exact date of return cannot be determined prior to surgery since recovery rate varies between patients. Sincerely, Stoney Blue MD Encounter Status:Closed by STONEY BLUE MD on 09/10/17 PROGRESS Observed: 08/18/2017 Status: COMPLETED Source: [place] 11:05 AM [facility] REPOSITORY HNO ID: [id number] Author: Stoney Blue Service: (none) Author Type: Physician Type: Progress Notes Filed: 08/27/2017 10:19 PM Note Text: Patient presents with: Recheck: Weight check, missed SMA Appointment # 4 SUBJECTIVE: Mariana Early is a 36 year old year old lady here today for monthyl follow up appointment for review of medical conditions. Has lost some more weight. Sticking to strict calorie content. 4 to 5 small meals. Total calories 1600 to 1650 calories. Exercise: resistance bands and walking. Has treadmill up to half hour 3 to 4 times a week. Noted issues with [employer] [facility] for Botox prior authorization. Needs shipped from [facility]. Frustrating. Skelaxin denied by [facility] when tried for prior authorization through pain management. Other muscle relaxants ineffective or too sedating. Flexeril okay if not having to go anywhere as far as efficacy. Flexeril, methocarbamol, Soma and baclofen all given by other providers. Either stomach upset or oversedation with each of these meds. Not on formulary. Needs to try for prior authorization again. Has not tried Skelaxin yet since not on formulary and not able to get prior authorization. PAST MEDICAL HISTORY Diagnosis Date - Asthma Dr. Victorino Trevizo ([facility]) - Dystonia - Elevated LFTs - Fibromyalgia - Hyperlipidemia - Hypoglycemia unawareness associated with type 2 diabetes mellitus (HCC) - Hypothyroid - Migraine headache with aura Not always with aura; treated with Botox Injections by Dr. Ellis - Obesity - Obstructive sleep apnea treated with BiPAP Sleep Medicine Doctor--Dr. Lovett - Occipital neuralgia Dr. 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 varicella virus vaccine, PF, (VARIVAX) 1,350 unit/0.5 mL injection Give 1 dose then repeat dose in 4 to 8 weeks later glimepiride (AMARYL) 4 mg tablet TAKE 1 TABLET BY MOUTH TWICE DAILY. dulaglutide (TRULICITY) 1.5 mg/0.5 mL pnij Inject 1.5 mL subcutaneously once each week. fluvoxaMINE Maleate (LUVOX) 25 mg tablet Take 1 tablet by mouth daily at bedtime. pantoprazole DR (PROTONIX) 40 mg tablet Take 1 tablet by mouth daily before breakfast. Take on empty stomach, 1/2 hr before meal. TAKING NEEDED NOW enalapril (VASOTEC) 5 mg tablet Take 1 tablet by mouth once daily. metFORMIN ER (GLUCOPHAGE XR) 500 mg 24 hr tablet Take 2 tablets by mouth twice daily. olopatadine (PATANOL) 0.1 % ophthalmic solution Use 1 Drop in both eyes twice daily. 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 LORazepam (ATIVAN) 1 mg tablet Take 1 tablet by mouth twice daily as needed for Anxiety. (Counseling Center provider) CRESTOR 5 mg tablet Take 1 tablet by mouth once daily. ondansetron orally disintegrating (ZOFRAN ODT) 4 mg disintegrating tablet Take 1 tablet by mouth every 8 hours as needed for Nausea/Vomiting. levonorgestrel (MIRENA) 20 mcg/24 hr (5 years) IUD Inserted in office ACLIDINIUM BROMIDE (TUDORZA PRESSAIR INHALATION) Inhale as instructed. Lancets (FREESTYLE LANCETS) lancets Test blood sugar(s) 2 times daily. Dx: DM2 250.00. Insulin: No LEVALBUTEROL HCL (XOPENEX INHALATION) Use 1 Vial via nebulizer every 6 hours as needed. Cholecalciferol, Vitamin D3, 5,000 unit tab Take 1 tablet by mouth once daily. blood sugar diagnostic (FREESTYLE LITE STRIPS) test strip Test blood sugar(s) 2 times daily. Dx: DM2 250.00. Insulin: No Blood-Glucose Meter (FREESTYLE LITE METER) monitoring kit Test sugars 2 time daily and when needed. budesonide-formoterol (SYMBICORT) 160-4.5 mcg/actuation inhaler Inhale 2 Puffs as instructed twice daily. No current facility-administered medications for this visit. OBJECTIVE: BP 114/68 Pulse 92 Resp 16 Wt 120.2 kg (265 lb) BMI 39.25 kg/m? Patient is alert, oriented times 3, no apparent distress, affect is bright, reactive. Last 5 Encounter BP Readings: Date: BP: 08/18/2017 114/68 07/04/2017 98/70 05/28/2017 137/81 05/14/2017 120/78 03/27/2017 130/80 Last 5 Encounter Wt Readings: Date: Wt: 08/18/2017 120.2 kg (265 lb) 07/04/2017 122.9 kg (271 lb) 05/28/2017 122.2 kg (269 lb 6.4 oz) 05/14/2017 122 kg (269 lb) 03/27/2017 118.8 kg (262 lb) Heart: Regular rate, rhythm, no murmurs, gallops, rubs. Lungs: Clear to auscultation, bilaterally, breathing non labored. Ext: No cyanosis, clubbing, or edema. Erythematous rash bilateral axilla consistent with candidal intertrigo. ASSESSMENT AND PLAN: Encounter Diagnosis ICD-10-CM 1. Obesity (BMI 30-39.9) E66.9 2. Candidal intertrigo B37.2 ciclopirox (LOPROX) 0.77 % cream 3. Bilateral low back pain with sciatica, sciatica laterality unspecified, unspecified chronicity M54.40 metaxalone (SKELAXIN) 800 mg tablet Form completed for Bariatric surgery and initialed scanning. Continues to work on diet and exercise so can pursue bariatric surgery. Hard to get in the 6 small meals in per day per goal but at least getting 4 to 5 small meals. Hard to get exercise in with back issues. Trying to get Skelaxin to see if will help with back pain. Treating axillary candidal intertrigo with different topical since diflucan and other topicals had not been effective. Discussed needing to keep skin dry--can try hair or beauty salon manager on cool setting. Also, might need to try antiperspirant to keep axilla dry since deodorant and cornstarch powder not apparently keeping area dry enough. Further evaluation and treatment as indicated. Above issues addressed with patient. Patient involved in shared decision making for management of her medical issues. History and medications reviewed. Epic updated as needed Refills taken care of and meds adjusted as indicated after reviewed history, exam and labs. Health Maintenance reviewed. Updated record and/or ordered tests as recorded. Encouraged on efforts at healthy diet and regular exercise and adequate sleep. The majority of the visit was spent counseling and/or coordinating care for the patient. Zphd-rh-mobm time was at least 25 minutes. Stoney Blue MD CNOV Observed: 08/18/2017 Status: COMPLETED Source: [place] 10:40 AM [facility] REPOSITORY Office Visit (INTMWS) MARIANA EARLY ([id number]) 1980 F Date Time Provider Department 08/18/17 10:40 AM STONEY BLUE INTMWS During your visit today, we recorded the following information about you: Pulse Respiration Blood pressure Weight 92/minute 16/minute 114/68 120.2 kg Stoney Blue MD 08/27/2017 10:19 PM Signed Patient presents with: Recheck: Weight check, missed [facility] Appointment # 4 SUBJECTIVE: Mariana Early is a 36 year old year old lady here today for monthyl follow up appointment for review of medical conditions. Has lost some more weight. Sticking to strict calorie content. 4 to 5 small meals. Total calories 1600 to 1650 calories. Exercise: resistance bands and walking. Has treadmill up to half hour 3 to 4 times a week. Noted issues with [facility] for Botox prior authorization. Needs shipped from [employer]. Frustrating. Skelaxin denied by [facility] when tried for prior authorization through pain management. Other muscle relaxants ineffective or too sedating. Flexeril okay if not having to go anywhere as far as efficacy. Flexeril, methocarbamol, Soma and baclofen all given by other providers. Either stomach upset or oversedation with each of these meds. Not on formulary. Needs to try for prior authorization again. Has not tried Skelaxin yet since not on formulary and not able to get prior authorization. PAST MEDICAL HISTORY Diagnosis Date - Asthma Dr. Victorino Trevizo ([facility]) - Dystonia - Elevated LFTs - Fibromyalgia - Hyperlipidemia - Hypoglycemia unawareness associated with type 2 diabetes mellitus (HCC) - Hypothyroid - Migraine headache with aura Not always with aura; treated with Botox Injections by Dr. Ellis - Obesity - Obstructive sleep apnea treated with BiPAP Sleep Medicine Doctor--Dr. Lovett - Occipital neuralgia Dr. 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 varicella virus vaccine, PF, (VARIVAX) 1,350 unit/0.5 mL injection Give 1 dose then repeat dose in 4 to 8 weeks later glimepiride (AMARYL) 4 mg tablet TAKE 1 TABLET BY MOUTH TWICE DAILY. dulaglutide (TRULICITY) 1.5 mg/0.5 mL pnij Inject 1.5 mL subcutaneously once each week. fluvoxaMINE Maleate (LUVOX) 25 mg tablet Take 1 tablet by mouth daily at bedtime. pantoprazole DR (PROTONIX) 40 mg tablet Take 1 tablet by mouth daily before breakfast. Take on empty stomach, 1/2 hr before meal. TAKING NEEDED NOW enalapril (VASOTEC) 5 mg tablet Take 1 tablet by mouth once daily. metFORMIN ER (GLUCOPHAGE XR) 500 mg 24 hr tablet Take 2 tablets by mouth twice daily. olopatadine (PATANOL) 0.1 % ophthalmic solution Use 1 Drop in both eyes twice daily. 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 LORazepam (ATIVAN) 1 mg tablet Take 1 tablet by mouth twice daily as needed for Anxiety. (Counseling Center provider) CRESTOR 5 mg tablet Take 1 tablet by mouth once daily. ondansetron orally disintegrating (ZOFRAN ODT) 4 mg disintegrating tablet Take 1 tablet by mouth every 8 hours as needed for Nausea/Vomiting. levonorgestrel (MIRENA) 20 mcg/24 hr (5 years) IUD Inserted in office ACLIDINIUM BROMIDE (TUDORZA PRESSAIR INHALATION) Inhale as instructed. Lancets (FREESTYLE LANCETS) lancets Test blood sugar(s) 2 times daily. Dx: DM2 250.00. Insulin: No LEVALBUTEROL HCL (XOPENEX INHALATION) Use 1 Vial via nebulizer every 6 hours as needed. Cholecalciferol, Vitamin D3, 5,000 unit tab Take 1 tablet by mouth once daily. blood sugar diagnostic (FREESTYLE LITE STRIPS) test strip Test blood sugar(s) 2 times daily. Dx: DM2 250.00. Insulin: No Blood-Glucose Meter (FREESTYLE LITE METER) monitoring kit Test sugars 2 time daily and when needed. budesonide-formoterol (SYMBICORT) 160-4.5 mcg/actuation inhaler Inhale 2 Puffs as instructed twice daily. No current facility-administered medications for this visit. OBJECTIVE: BP 114/68 Pulse 92 Resp 16 Wt 120.2 kg (265 lb) BMI 39.25 kg/m? Patient is alert, oriented times 3, no apparent distress, affect is bright, reactive. Last 5 Encounter BP Readings: Date: BP: 08/18/2017 114/68 07/04/2017 98/70 05/28/2017 137/81 05/14/2017 120/78 03/27/2017 130/80 Last 5 Encounter Wt Readings: Date: Wt: 08/18/2017 120.2 kg (265 lb) 07/04/2017 122.9 kg (271 lb) 05/28/2017 122.2 kg (269 lb 6.4 oz) 05/14/2017 122 kg (269 lb) 03/27/2017 118.8 kg (262 lb) Heart: Regular rate, rhythm, no murmurs, gallops, rubs. Lungs: Clear to auscultation, bilaterally, breathing non labored. Ext: No cyanosis, clubbing, or edema. Erythematous rash bilateral axilla consistent with candidal intertrigo. ASSESSMENT AND PLAN: Encounter Diagnosis ICD-10-CM 1. Obesity (BMI 30-39.9) E66.9 2. Candidal intertrigo B37.2 ciclopirox (LOPROX) 0.77 % cream 3. Bilateral low back pain with sciatica, sciatica laterality unspecified, unspecified chronicity M54.40 metaxalone (SKELAXIN) 800 mg tablet Form completed for Bariatric surgery and initialed scanning. Continues to work on diet and exercise so can pursue bariatric surgery. Hard to get in the 6 small meals in per day per goal but at least getting 4 to 5 small meals. Hard to get exercise in with back issues. Trying to get Skelaxin to see if will help with back pain. Treating axillary candidal intertrigo with different topical since diflucan and other topicals had not been effective. Discussed needing to keep skin dry--can try hair or beauty salon manager on cool setting. Also, might need to try antiperspirant to keep axilla dry since deodorant and cornstarch powder not apparently keeping area dry enough. Further evaluation and treatment as indicated. Above issues addressed with patient. Patient involved in shared decision making for management of her medical issues. History and medications reviewed. Epic updated as needed Refills taken care of and meds adjusted as indicated after reviewed history, exam and labs. Health Maintenance reviewed. Updated record and/or ordered tests as recorded. Encouraged on efforts at healthy diet and regular exercise and adequate sleep. The majority of the visit was spent counseling and/or coordinating care for the patient. Bebz-od-avuc time was at least 25 minutes. Stoney Blue MD Referring Provider: STONEY BLUE [[id number]] Allergies As of Date: 08/18/2017 Noted Allergy Reaction CIPROFLOXACIN 04/18/2011 14 - Other: See Comments Comments: Mother highly allergic to medication IMITREX (SUMATRIPTAN SUCCINATE) 04/18/2011 8 - GI Upset 11 - Vomiting NICKEL 05/14/2015 4 - Hives 7 - Swelling ADHESIVE 04/18/2011 2 - Rash 14 - Other: See Comments Comments: Pulling of skin ASPIRIN 04/18/2011 8 - GI Upset CORTICOSTEROIDS (GLUCOCORTICOIDS) 08/01/2014 14 - Other: See Comments Comments: Increase in blood sugars CYMBALTA (DULOXETINE) 11/28/2013 5 - Intolerance EFFEXOR (VENLAFAXINE) 08/23/2015 14 - Other: See Comments LIPITOR (ATORVASTATIN CALCIUM) 08/26/2014 4 - Hives NARCOTICS (OPIOIDS - MORPHINE JERRICA*11/02/2011 14 - Other: See Comments Comments: Mood changes/depression worsen/if taking must be monitored closley NIFEDIPINE 08/27/2013 14 - Other: See Comments Comments: Chest pain heart racing and skin flushing SULFA (SULFONAMIDE ANTIBIOTICS) 04/18/2011 14 - Other: See Comments Comments: headaches TOMATOES 01/26/2017 8 - GI Upset TOPAMAX (TOPIRAMATE) 11/28/2013 5 - Intolerance ULTRAM (TRAMADOL) 08/01/2014 12 - Shortness of Breath WHEAT, WHEAT GERM 01/26/2017 2 - Rash Date Reviewed: 08/18/2017 Reviewed by: Bre Patel Ma - Fully Assessed Reason for Visit: Recheck [92] Cmt: Weight check, missed SMA Primary Visit Diagnosis:Obesity (BMI 30-39.9) [E66.9] Other Visit Diagnoses:Candidal intertrigo [B37.2] Bilateral low back pain with sciatica, sciatica laterality unspecified, unspecified chronicity [M54.40] Order(s):Magnesium 250 mg tabOn HoldDisp: Rfl: metaxalone (SKELAXIN) 800 mg tabletTake 1 tablet by mouth three times daily as needed for Pain.Disp: 60 tabletRfl: 1 ciclopirox (LOPROX) 0.77 % creamApply 1 application to affected area twice daily.Disp: 30 gRfl: 2 Prescriptions as of 08/18/2017 Sig: MAGNESIUM 250 MG TABLET On Hold METAXALONE 800 MG TABLET Take 1 tablet by mouth three * CICLOPIROX 0.77 % TOPICAL CRE* Apply 1 application to affect* FLUCONAZOLE 100 MG TABLET Take daily for 7 days then ma* VITAMIN D-3 ORAL Take by mouth. VARICELLA VIRUS VACCINE LIVE * Give 1 dose then repeat dose * GLIMEPIRIDE 4 MG TABLET TAKE 1 TABLET BY MOUTH TWICE * DULAGLUTIDE 1.5 MG/0.5 ML SUB* Inject 1.5 mL subcutaneously * FLUVOXAMINE 25 MG TABLET Take 1 tablet by mouth daily * PANTOPRAZOLE 40 MG TABLET,DEL* Take 1 tablet by mouth daily * ENALAPRIL MALEATE 5 MG TABLET Take 1 tablet by mouth once d* METFORMIN ER 500 MG TABLET,EX* Take 2 tablets by mouth twice* OLOPATADINE 0.1 % EYE DROPS Use 1 Drop in both eyes twice* LEVALBUTEROL 0.63 MG/3 ML LUIS* Use 3 mL via nebulizer every * LORAZEPAM 1 MG TABLET Take 1 tablet by mouth twice * CRESTOR 5 MG TABLET Take 1 tablet by mouth once d* ONDANSETRON 4 MG DISINTEGRATI* Take 1 tablet by mouth every * LEVONORGESTREL 20 MCG/24 HR (* Inserted in office TUDORZA PRESSAIR INHALATION Inhale as instructed. LANCETS Test blood sugar(s) 2 times d* XOPENEX INHALATION Use 1 Vial via nebulizer ever* CHOLECALCIFEROL (VITAMIN D3) * Take 1 tablet by mouth once d* BLOOD SUGAR DIAGNOSTIC STRIPS Test blood sugar(s) 2 times d* * BLOOD-GLUCOSE METER KIT Test sugars 2 time daily and * * BUDESONIDE-FORMOTEROL HFA 160* Inhale 2 Puffs as instructed * Medication notes this encounter PANTOPRAZOLE 40 MG TABLET,DELAYED RELEASE >> Stoney Blue MD 08/18/2017 11:10 AM >> STONEY BLUE MD SunAug 18, 2017 11:10 AM Sometimes needing more than twice a week ENALAPRIL MALEATE 5 MG TABLET >> Stoney Blue MD 08/18/2017 11:11 AM >> STONEY BLUE MD Sat Aug 18, 2017 11:11 AM Getting from other provider now METFORMIN ER 500 MG TABLET,EXTENDED RELEASE 24 HR >> Stoney Blue MD 08/18/2017 11:11 AM >> STONEY BLUE MD Sat Aug 18, 2017 11:11 AM Getting from other provider now CRESTOR 5 MG TABLET >> Stoney Blue MD 08/18/2017 11:12 AM >> STONEY BLUE MD Sat Aug 18, 2017 11:[address] Beyer ONDANSETRON 4 MG DISINTEGRATING TABLET >> Stoney Blue MD 08/18/2017 11:13 AM >> STONEY BLUE MD Sat Aug 18, 2017 11:13 AM Neurologist prescribing for migraines Problem List As Of Date 08/18/2017 Noted Resolved Diabetes mellitus type 2, uncontrolled (HCC) [E*INVALID FOR*09/03/2015 Hyperlipidemia [E78.5] INVALID FOR* Obesity, Class III, BMI 40-49.9 (morbid obesity*INVALID FOR*09/03/2015 Hypothyroid [E03.9] INVALID FOR*09/03/2015 Obstructive sleep apnea [G47.33] INVALID FOR*09/03/2015 Asthma, moderate persistent [J45.40] INVALID FOR*09/03/2015 Albuminuria [R80.9] INVALID FOR*09/03/2015 Vitamin D deficiency [E55.9] INVALID FOR* Faintness [R55] INVALID FOR*09/03/2015 Type 2 diabetes, controlled, with neuropathy (H*INVALID FOR*02/05/2015 PCOS (polycystic ovarian syndrome) [E28.2] INVALID FOR* More... Migraine headache without aura [G43.009] INVALID FOR*09/03/2015 More... Restless legs syndrome (RLS) [G25.81] INVALID FOR*09/03/2015 More... Right ankle instability [M25.371] INVALID FOR*09/03/2015 Left ankle instability [M25.372] INVALID FOR*09/03/2015 Type 2 diabetes mellitus with hyperglycemia (HC* More... Type 2 diabetes mellitus with neurological john* More... Type 2 diabetes mellitus with polyneuropathy (H* Hypoglycemia unawareness associated with type 2* Obesity [E66.9] 09/05/2016 Hypothyroid [E03.9] More... Ovarian cyst, left [N83.202] INVALID FOR* Multiple thyroid nodules [E04.2] INVALID FOR* Bilateral low back pain with sciatica [M54.40] INVALID FOR* Asymptomatic PVCs [I49.3] INVALID FOR* Morbid obesity with BMI of 40.0-44.9, adult (HC*INVALID FOR*05/14/2017 Statin intolerance [Z78.9] INVALID FOR* More... Hypogammaglobulinemia (HCC) [D80.1] INVALID FOR* Recurrent infections [B99.9] INVALID FOR* Allergic rhinitis [J30.9] INVALID FOR* Asthma, well controlled [J45.909] INVALID FOR* MEGHAN on CPAP [G47.33, Z99.89] INVALID FOR* Obesity (BMI 30-39.9) [E66.9] INVALID FOR* Prescriptions ordered this encounter Disp Refills Start End MAGNESIUM 250 MG TABLET 08/18/2017 Class: Med Update Sig: On Hold METAXALONE 800 MG TABLET 60 t* 1 08/18/2017 Cmt: Will try to get prior authorization after rejected for not being on formulary since has tried all the other muscle relaxants (through pain management or in [facility]) Route: ORAL Sig: Take 1 tablet by mouth three times daily as needed for Pain. CICLOPIROX 0.77 % TOPICAL CREAM 30 g 2 08/18/2017 Route: TOPICAL Sig: Apply 1 application to affected area twice daily. Medications Discontinued During This Encounter benzonatate (TESSALON PERLE) 100 mg * 30 c* 0 03/27/2017 08/18/2017 Route: ORAL Sig: Take 2 capsules by mouth three times daily as needed. Disc: Reason for discontinue is not on file. COMPOUNDED PRESCRIPTION 08/15/2016 08/18/2017 Class: OTC Sig: [place] capsule 1 at bedtime Disc: Reason for discontinue is not on file. BIOTIN ORAL 08/18/2017 Class: Historical Med Route: ORAL Sig: Take by mouth. Disc: Reason for discontinue is not on file. MAGNESIUM ORAL 08/18/2017 Class: Historical Med Route: ORAL Sig: Take 1 capsule by mouth twice daily. Disc: Reason for discontinue is not on file. Disposition: Return for Move August appointment to 30 days out. Follow-up and Disposition History Recorded Encounter Status:Closed by STONEY BLUE MD on 08/27/17 EMERGENCY DEPARTMENT Observed: 07/27/2017 Status: F Source: [place] SUMMARY 10:53 PM [facility] [place] REPOSITORY [facility] Medical Records Department [address] [place] [address] Emergency Department Summary 07/27/17 1457 MR#: [id number] Acct: [id number] Name: MARIANA EARLY Rep #: [id number] : 1980 36 From: Delores Jain MD PCP: Stoney Blue MD Status: DEP ER - ER Visit Summary Date of Service: 07/27/17 Chief Complaint: Migraine History of Present Illness: The patient is a 36 F who presents with a four-day history of migraine headache. She states it is mostly the back of her head and on the right side. She is a history of migraines and this is consistent with her prior pattern. Patient states she has had nausea and dry heaves. She initially had double vision in her right eye which she has had with her prior migraines as well. Patient states normally Midrin and Fioricet will help her headaches but they are not alleviating the pain this round. She is currently on Augmentin for a sinus infection. She has had no fevers. Past history is significant for occipital neuralgia in addition to migraines, diabetes, hypertension, high cholesterol, and reflux disease. Physical Examination: Vital signs are unremarkable. Patient sitting well at room. She is in no acute distress. Head and neck examination is grossly unremarkable. Heart is regular rate and rhythm. On lung sounds are clear. Abdomen soft nontender. Neuro exam reveals no focal deficits. Test Results: [] Emergency Department Course and Treatment: Patient has previously done well with Toradol, Benadryl, and Phenergan. She is given this combination again today. On repeat evaluation she is resting comfortably. She does report significant improvement in her headache. She will be discharged home with family. Treatment Plan: [] Disposition: Discharge Impression: Migraine, improved This note was generated with The Original [employer] dictation software. It may contain incorrect words, spelling, and punctuation that were not noted in review of the chart prior to signing ED Disposition - Plan for ED Patient: Chief Complaint: Headache Referrals: Stoney Blue MD [Primary Care Provider] - What to do if you have Problems For any increased pain, shortness of breath, bleeding, nausea or vomiting, chest pain, or any unexpected problems, contact your Primary Care Provider. Call [facility] ([phone]) or report to the closest Emergency Room. Call 911 if necessary. 07/27/17 020 <Electronically signed by Delores Jain MD> Date Delores Jain MD Cosigner Signature (If Indicated): Date CC: Stoney Blue MD DISCHARGE INSTRUCTION Observed: 07/27/2017 Status: F Source: [place] 4:29 PM [facility] [place] REPOSITORY [facility] Medical Records Department [address] [place] [id number] Discharge Instruction 07/27/171628 MR#: [id number] Acct: [id number] Name: MARIANA EARLY Rep #: [id number] : 1980 36 From: Delores Jain MD PCP: Stoney Blue MD Status: REG ER ED Disposition - Plan for ED Patient: Disposition: Home or Assisted Living Chief Complaint: Headache Instructions: ED Headache Migraine Referrals: Stoney Blue MD [Primary Care Provider] - 3-5 Days if not improving What to do if you have Problems For any increased pain, shortness of breath, bleeding, nausea or vomiting, chest pain, or any unexpected problems, contact your Primary Care Provider. Call [facility] ([phone]) or report to the closest Emergency Room. Call 911 if necessary. 07/27/171628 <Electronically signed by Delores Jain MD> Date Delores Jain MD Cosigner Signature (If Indicated): Date CC: Stoney Blue MD PROGRESS Observed: 07/24/2017 Status: COMPLETED Source: [place] 3:30 PM [facility] REPOSITORY HNO ID: [id number] Author: Aliyah Goss Service: (none) Author Type: Physician Type: Progress Notes Filed: 07/24/2017 3:53 PM Note Text: ? Aliyah Goss DPM Department of Podiatry [address] [facility] [address] Dept: [phone] Dept 07/24/2017 Follow Up Podiatric Office Visit: HPI: Mariana Early is a 36 year old female. Patient presents for follow up for plantar fasciitis. Patient reports intermittement pain. Is not able to do physical therapy d/t work schedule, has been doing stretches at home with some relief. Received custom inserts about 2 1/2 weeks ago that are helping taking pressure off arch. Still having issues with toe's curling and bilateral muscle spasms at HS. Physical Exam: Constitutional: Pt is a well developed 36 year old female who is alert, oriented and cooperative Eyes: Following during examination. No redness or drainage. Respiratory: RR normal and nonlabored. Even breathing. No evidence of distress or shortness of breath. Psychology: Patient is engaged during conversation. Normal affect and mood. Does not appear depressed or anxious during encounter. Vascular: Dorsalis pedis and posterior tibial pulses palpable as b/l Capillary Fill time < 5 seconds to digits 1-5 b/l Skin temperature warm to warm proximal to distal b/l Hair growth present to digits Neurological: intact light touch/epicritic sensation - tinel b/l Dermatological: Skin appears well hydrated and supple. good color, texture, turgor. Callosities present absent.Open lesions absent. Wound: Not present. Musculoskeletal/Orthopaedic: Patient has no pain to palpation of b/l plantar medial calcaneal tubercle There is pain along medial and lateral ankle but pain is mild Foot type is pronated structurally AJ ROM is full with knee extended and flexed 1st MPJ is full when loaded and no pain or crepitus are noted with ROM. MTJ, STJ are full and free of pain and crepitus. +5/5 muscle strength dorsiflexion, plantarflexion, inversion, eversion b/l Radiographs: 3 views of b/l foot and ankle reviewed. No acute fracture ASSESSMENT: (M72.2) Bilateral plantar fasciitis (primary encounter diagnosis) (M25.373) Unstable ankle, unspecified laterality PLAN: Patient plantar fasciitis pain has improved with inserts. Continue with stretching, icing x 10 min, nsaids if she can tolerate. Discussed b/l ankle instability. Recommend she try physical therapy. She has aso ankle brace and she can use these. Discussed home stretching/proprioception activities that may increase strength of ankle Discussed cramping of feet. She can try voltaren gel that she uses for her hands to see if this helps. f/u in 5 weeks Aliyah Goss DPM CNOV Observed: 07/24/2017 Status: COMPLETED Source: [place] 3:10 PM [facility] REPOSITORY Office Visit (PODIWS) MARIANA EARLY ([id number]) 1980 F Date Time Provider Department 07/24/17 3:10 PM ALIYAH GOSS During your visit today, we recorded the following information about you: Aliyah Goss DPM 07/24/2017 3:53 PM Signed ? Aliyah Goss DPM Department of Podiatry [address] [facility] [address] Dept: [phone] Dept 07/24/2017 Follow Up Podiatric Office Visit: HPI: Mariana Early is a 36 year old female. Patient presents for follow up for plantar fasciitis. Patient reports intermittement pain. Is not able to do physical therapy d/t work schedule, has been doing stretches at home with some relief. Received custom inserts about 2 1/2 weeks ago that are helping taking pressure off arch. Still having issues with toe's curling and bilateral muscle spasms at HS. Physical Exam: Constitutional: Pt is a well developed 36 year old female who is alert, oriented and cooperative Eyes: Following during examination. No redness or drainage. Respiratory: RR normal and nonlabored. Even breathing. No evidence of distress or shortness of breath. Psychology: Patient is engaged during conversation. Normal affect and mood. Does not appear depressed or anxious during encounter. Vascular: Dorsalis pedis and posterior tibial pulses palpable as b/l Capillary Fill time < 5 seconds to digits 1-5 b/l Skin temperature warm to warm proximal to distal b/l Hair growth present to digits Neurological: intact light touch/epicritic sensation - tinel b/l Dermatological: Skin appears well hydrated and supple. good color, texture, turgor. Callosities present absent.Open lesions absent. Wound: Not present. Musculoskeletal/Orthopaedic: Patient has no pain to palpation of b/l plantar medial calcaneal tubercle There is pain along medial and lateral ankle but pain is mild Foot type is pronated structurally AJ ROM is full with knee extended and flexed 1st MPJ is full when loaded and no pain or crepitus are noted with ROM. MTJ, STJ are full and free of pain and crepitus. +5/5 muscle strength dorsiflexion, plantarflexion, inversion, eversion b/l Radiographs: 3 views of b/l foot and ankle reviewed. No acute fracture ASSESSMENT: (M72.2) Bilateral plantar fasciitis (primary encounter diagnosis) (M25.373) Unstable ankle, unspecified laterality PLAN: Patient plantar fasciitis pain has improved with inserts. Continue with stretching, icing x 10 min, nsaids if she can tolerate. Discussed b/l ankle instability. Recommend she try physical therapy. She has aso ankle brace and she can use these. Discussed home stretching/proprioception activities that may increase strength of ankle Discussed cramping of feet. She can try voltaren gel that she uses for her hands to see if this helps. f/u in 5 weeks Aliyah Goss DPM Referring Provider: ALIYAH GOSS [[id number]] Allergies As of Date: 07/24/2017 Noted Allergy Reaction CIPROFLOXACIN 04/18/2011 14 - Other: See Comments Comments: Mother highly allergic to medication IMITREX (SUMATRIPTAN SUCCINATE) 04/18/2011 8 - GI Upset 11 - Vomiting NICKEL 05/14/2015 4 - Hives 7 - Swelling ADHESIVE 04/18/2011 2 - Rash 14 - Other: See Comments Comments: Pulling of skin ASPIRIN 04/18/2011 8 - GI Upset CORTICOSTEROIDS (GLUCOCORTICOIDS) 08/01/2014 14 - Other: See Comments Comments: Increase in blood sugars CYMBALTA (DULOXETINE) 11/28/2013 5 - Intolerance EFFEXOR (VENLAFAXINE) 08/23/2015 14 - Other: See Comments LIPITOR (ATORVASTATIN CALCIUM) 08/26/2014 4 - Hives NARCOTICS (OPIOIDS - MORPHINE JERRICA*11/02/2011 14 - Other: See Comments Comments: Mood changes/depression worsen/if taking must be monitored closley NIFEDIPINE 08/27/2013 14 - Other: See Comments Comments: Chest pain heart racing and skin flushing SULFA (SULFONAMIDE ANTIBIOTICS) 04/18/2011 14 - Other: See Comments Comments: headaches TOMATOES 01/26/2017 8 - GI Upset TOPAMAX (TOPIRAMATE) 11/28/2013 5 - Intolerance ULTRAM (TRAMADOL) 08/01/2014 12 - Shortness of Breath WHEAT, WHEAT GERM 01/26/2017 2 - Rash Date Reviewed: 07/24/2017 Reviewed by: Roopa Nunez Ma - Fully Assessed Reason for Visit: Follow Up [171] Primary Visit Diagnosis:Bilateral plantar fasciitis [M72.2] Other Visit Diagnosis:Unstable ankle, unspecified laterality [M25.373] Prescriptions as of 07/24/2017 Sig: VITAMIN D-3 ORAL Take by mouth. BENZONATATE 100 MG CAPSULE Take 2 capsules by mouth thre* VARICELLA VIRUS VACCINE LIVE * Give 1 dose then repeat dose * GLIMEPIRIDE 4 MG TABLET TAKE 1 TABLET BY MOUTH TWICE * DULAGLUTIDE 1.5 MG/0.5 ML SUB* Inject 1.5 mL subcutaneously * FLUVOXAMINE 25 MG TABLET Take 1 tablet by mouth daily * PANTOPRAZOLE 40 MG TABLET,DEL* Take 1 tablet by mouth daily * ENALAPRIL MALEATE 5 MG TABLET Take 1 tablet by mouth once d* METFORMIN ER 500 MG TABLET,EX* Take 2 tablets by mouth twice* OLOPATADINE 0.1 % EYE DROPS Use 1 Drop in both eyes twice* LEVALBUTEROL 0.63 MG/3 ML LUIS* Use 3 mL via nebulizer every * LORAZEPAM 1 MG TABLET Take 1 tablet by mouth twice * COMPOUNDED PRESCRIPTION [place] capsule 1 at bedtime BIOTIN ORAL Take by mouth. CRESTOR 5 MG TABLET Take 1 tablet by mouth once d* MAGNESIUM ORAL Take 1 capsule by mouth twice* ONDANSETRON 4 MG DISINTEGRATI* Take 1 tablet by mouth every * LEVONORGESTREL 20 MCG/24 HR (* Inserted in office TUDORZA PRESSAIR INHALATION Inhale as instructed. LANCETS Test blood sugar(s) 2 times d* XOPENEX INHALATION Use 1 Vial via nebulizer ever* CHOLECALCIFEROL (VITAMIN D3) * Take 1 tablet by mouth once d* BLOOD SUGAR DIAGNOSTIC STRIPS Test blood sugar(s) 2 times d* * BLOOD-GLUCOSE METER KIT Test sugars 2 time daily and * * BUDESONIDE-FORMOTEROL HFA 160* Inhale 2 Puffs as instructed * Problem List As Of Date 07/24/2017 Noted Resolved Diabetes mellitus type 2, uncontrolled (HCC) [E*INVALID FOR*09/03/2015 Hyperlipidemia [E78.5] INVALID FOR* Obesity, Class III, BMI 40-49.9 (morbid obesity*INVALID FOR*09/03/2015 Hypothyroid [E03.9] INVALID FOR*09/03/2015 Obstructive sleep apnea [G47.33] INVALID FOR*09/03/2015 Asthma, moderate persistent [J45.40] INVALID FOR*09/03/2015 Albuminuria [R80.9] INVALID FOR*09/03/2015 Vitamin D deficiency [E55.9] INVALID FOR* Faintness [R55] INVALID FOR*09/03/2015 Type 2 diabetes, controlled, with neuropathy (H*INVALID FOR*02/05/2015 PCOS (polycystic ovarian syndrome) [E28.2] INVALID FOR* More... Migraine headache without aura [G43.009] INVALID FOR*09/03/2015 More... Restless legs syndrome (RLS) [G25.81] INVALID FOR*09/03/2015 More... Right ankle instability [M25.371] INVALID FOR*09/03/2015 Left ankle instability [M25.372] INVALID FOR*09/03/2015 Type 2 diabetes mellitus with hyperglycemia (HC* More... Type 2 diabetes mellitus with neurological john* More... Type 2 diabetes mellitus with polyneuropathy (H* Hypoglycemia unawareness associated with type 2* Obesity [E66.9] 09/05/2016 Hypothyroid [E03.9] More... Ovarian cyst, left [N83.202] INVALID FOR* Multiple thyroid nodules [E04.2] INVALID FOR* Bilateral low back pain with sciatica [M54.40] INVALID FOR* Asymptomatic PVCs [I49.3] INVALID FOR* Morbid obesity with BMI of 40.0-44.9, adult (HC*INVALID FOR*05/14/2017 Statin intolerance [Z78.9] INVALID FOR* More... Hypogammaglobulinemia (HCC) [D80.1] INVALID FOR* Recurrent infections [B99.9] INVALID FOR* Allergic rhinitis [J30.9] INVALID FOR* Asthma, well controlled [J45.909] INVALID FOR* MEGHAN on CPAP [G47.33, Z99.89] INVALID FOR* Obesity (BMI 30-39.9) [E66.9] INVALID FOR* Disposition: Return in about 5 weeks (around 08/28/2017) for plantar fasciitis follow up. Follow-up and Disposition History Recorded Encounter Status:Closed by ALIYAH GOSS DPM on 07/24/17 PROGRESS Observed: 07/04/2017 Status: COMPLETED Source: [place] 2:40 PM [facility] RE[facility]IT[facility] HNO ID: [id number] Author: Stoney Blue Service: (none) Author Type: Physician Type: Progress Notes Filed: 07/17/2017 8:31 AM Note Text: Patient presents with: 6 Month Exam SUBJECTIVE: Mariana Early is a 36 year old year old lady here today for 6 month follow up appointment for review of medical conditions. Visit #3 for weight loss follow up for pre-bariatric surgery protocol. Following with endocrinology. Yearly US for now. Sugars mostly running 200's though sometimes 150 or 120. Finding out sugars that does better with. Some proteins can contribute to higher sugars. Trying to do 10 or more minutes of exercise per day. Work schedule crazy. Most days staying 1600 calorie minimum with 1650 goal. Sometimes 1800 when more active--protein shake. Water--working on getting up to 64 ounces. Trying to get 6 small meals--at 4 small meals. Not yet eating breakfast. Uses cream in tea. Folic acid deficiency--mother has and was told needs tested. PAST MEDICAL HISTORY Diagnosis Date - Asthma Dr. Victorino Trevizo ([facility]) - Dystonia - Elevated LFTs - Fibromyalgia - Hyperlipidemia - Hypoglycemia unawareness associated with type 2 diabetes mellitus (HCC) - Hypothyroid - Migraine headache with aura Not always with aura; treated with Botox Injections by Dr. Ellis - Obesity - Obstructive sleep apnea treated with BiPAP Sleep Medicine Doctor--Dr. Lovett - Occipital neuralgia Dr. 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 glimepiride (AMARYL) 4 mg tablet TAKE 1 TABLET BY MOUTH TWICE DAILY. dulaglutide (TRULICITY) 1.5 mg/0.5 mL pnij Inject 1.5 mL subcutaneously once each week. fluvoxaMINE Maleate (LUVOX) 25 mg tablet Take 1 tablet by mouth daily at bedtime. pantoprazole DR (PROTONIX) 40 mg tablet Take 1 tablet by mouth daily before breakfast. Take on empty stomach, 1/2 hr before meal. TAKING NEEDED NOW enalapril (VASOTEC) 5 mg tablet Take 1 tablet by mouth once daily. metFORMIN ER (GLUCOPHAGE XR) 500 mg 24 hr tablet Take 2 tablets by mouth twice daily. olopatadine (PATANOL) 0.1 % ophthalmic solution Use 1 Drop in both eyes twice daily. 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 LORazepam (ATIVAN) 1 mg tablet Take 1 tablet by mouth twice daily as needed for Anxiety. (Counseling Center provider) CRESTOR 5 mg tablet Take 1 tablet by mouth once daily. ondansetron orally disintegrating (ZOFRAN ODT) 4 mg disintegrating tablet Take 1 tablet by mouth every 8 hours as needed for Nausea/Vomiting. levonorgestrel (MIRENA) 20 mcg/24 hr (5 years) IUD Inserted in office ACLIDINIUM BROMIDE (TUDORZA PRESSAIR INHALATION) Inhale as instructed. Lancets (FREESTYLE LANCETS) lancets Test blood sugar(s) 2 times daily. Dx: DM2 250.00. Insulin: No blood sugar diagnostic (FREESTYLE LITE STRIPS) test strip Test blood sugar(s) 2 times daily. Dx: DM2 250.00. Insulin: No Blood-Glucose Meter (FREESTYLE LITE METER) monitoring kit Test sugars 2 time daily and when needed. budesonide-formoterol (SYMBICORT) 160-4.5 mcg/actuation inhaler Inhale 2 Puffs as instructed twice daily. benzonatate (TESSALON PERLE) 100 mg capsule Take 2 capsules by mouth three times daily as needed. varicella virus vaccine, PF, (VARIVAX) 1,350 unit/0.5 mL injection Give 1 dose then repeat dose in 4 to 8 weeks later COMPOUNDED PRESCRIPTION [place] capsule 1 at bedtime BIOTIN ORAL Take by mouth. MAGNESIUM ORAL Take 1 capsule by mouth twice daily. LEVALBUTEROL HCL (XOPENEX INHALATION) Use 1 Vial via nebulizer every 6 hours as needed. Cholecalciferol, Vitamin D3, 5,000 unit tab Take 1 tablet by mouth once daily. No current facility-administered medications for this visit. OBJECTIVE: BP 98/70 Pulse 108 Resp 20 Wt 122.9 kg (271 lb) BMI 40.14 kg/m? Patient is alert, oriented times 3, no apparent distress, affect is bright, reactive. Last 5 Encounter BP Readings: Date: BP: 07/04/2017 98/70 05/28/2017 137/81 05/14/2017 120/78 03/27/2017 130/80 01/30/2017 114/78 Last 5 Encounter Wt Readings: Date: Wt: 07/04/2017 122.9 kg (271 lb) 05/28/2017 122.2 kg (269 lb 6.4 oz) 05/14/2017 122 kg (269 lb) 03/27/2017 118.8 kg (262 lb) 01/30/2017 125.2 kg (276 lb) Heart: Regular rate, rhythm, no murmurs, gallops, rubs. Lungs: Clear to auscultation, bilaterally, breathing non labored. Ext: No cyanosis, clubbing, or edema. HgA1C 8.2 (up from 7.1) ASSESSMENT AND PLAN: Encounter Diagnosis ICD-10-CM 1. Morbid obesity with BMI of 40.0-44.9, adult ([facility]) E66.01 Z68.41 2. Type 2 diabetes mellitus with polyneuropathy ([facility]) E11.42 Continue present management but need to cut back on carbs and increase exercise. Doing well with calorie control with avoiding going over 1800 when active. Weight up a couple pounds but still lower than where she was in January. Needs to keep working on diet and exercise with lifestyle changes for effective weight loss. Above issues addressed with patient. Patient involved in shared decision making for management of her medical issues. History and medications reviewed. Epic updated as needed Refills taken care of and meds adjusted as indicated after reviewed history, exam and labs. Health Maintenance reviewed. Updated record and/or ordered tests as recorded. Encouraged on efforts at healthy diet and regular exercise and adequate sleep. The majority of the visit was spent counseling and/or coordinating care for the patient. Yjlr-dy-tnje time was at least 25 minutes. Stoney Blue MD CNOV Observed: 07/04/2017 Status: COMPLETED Source: [place] 1:40 PM [facility] [facility] RE[facility] Office Visit (INTMWS) MARIANA EARLY ([id number]) 1980 F Date Time Provider Department 07/04/17 1:40 PM STONEY BLUE INTMWS During your visit today, we recorded the following information about you: Pulse Respiration Blood pressure Weight 108/minute 20/minute 98/70 122.9 kg Stoney Blue MD 07/17/2017 8:31 AM Signed Patient presents with: 6 Month Exam SUBJECTIVE: Mariana Early is a 36 year old year old lady here today for 6 month follow up appointment for review of medical conditions. Visit #3 for weight loss follow up for pre-bariatric surgery protocol. Following with endocrinology. Yearly US for now. Sugars mostly running 200's though sometimes 150 or 120. Finding out sugars that does better with. Some proteins can contribute to higher sugars. Trying to do 10 or more minutes of exercise per day. Work schedule crazy. Most days staying 1600 calorie minimum with 1650 goal. Sometimes 1800 when more active--protein shake. Water--working on getting up to 64 ounces. Trying to get 6 small meals--at 4 small meals. Not yet eating breakfast. Uses cream in tea. Folic acid deficiency--mother has and was told needs tested. PAST MEDICAL HISTORY Diagnosis Date - Asthma Dr. Victorino Trevizo ([facility]) - Dystonia - Elevated LFTs - Fibromyalgia - Hyperlipidemia - Hypoglycemia unawareness associated with type 2 diabetes mellitus (HCC) - Hypothyroid - Migraine headache with aura Not always with aura; treated with Botox Injections by Dr. Ellis - Obesity - Obstructive sleep apnea treated with BiPAP Sleep Medicine Doctor--Dr. Lovett - Occipital neuralgia Dr. 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 glimepiride (AMARYL) 4 mg tablet TAKE 1 TABLET BY MOUTH TWICE DAILY. dulaglutide (TRULICITY) 1.5 mg/0.5 mL pnij Inject 1.5 mL subcutaneously once each week. fluvoxaMINE Maleate (LUVOX) 25 mg tablet Take 1 tablet by mouth daily at bedtime. pantoprazole DR (PROTONIX) 40 mg tablet Take 1 tablet by mouth daily before breakfast. Take on empty stomach, 1/2 hr before meal. TAKING NEEDED NOW enalapril (VASOTEC) 5 mg tablet Take 1 tablet by mouth once daily. metFORMIN ER (GLUCOPHAGE XR) 500 mg 24 hr tablet Take 2 tablets by mouth twice daily. olopatadine (PATANOL) 0.1 % ophthalmic solution Use 1 Drop in both eyes twice daily. 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 LORazepam (ATIVAN) 1 mg tablet Take 1 tablet by mouth twice daily as needed for Anxiety. (Counseling [facility] provider) CRESTOR 5 mg tablet Take 1 tablet by mouth once daily. ondansetron orally disintegrating (ZOFRAN ODT) 4 mg disintegrating tablet Take 1 tablet by mouth every 8 hours as needed for Nausea/Vomiting. levonorgestrel (MIRENA) 20 mcg/24 hr (5 years) IUD Inserted in office ACLIDINIUM BROMIDE (TUDORZA PRESSAIR INHALATION) Inhale as instructed. Lancets (FREESTYLE LANCETS) lancets Test blood sugar(s) 2 times daily. Dx: DM2 250.00. Insulin: No blood sugar diagnostic (FREESTYLE LITE STRIPS) test strip Test blood sugar(s) 2 times daily. Dx: DM2 250.00. Insulin: No Blood-Glucose Meter (FREESTYLE LITE METER) monitoring kit Test sugars 2 time daily and when needed. budesonide-formoterol (SYMBICORT) 160-4.5 mcg/actuation inhaler Inhale 2 Puffs as instructed twice daily. benzonatate (TESSALON PERLE) 100 mg capsule Take 2 capsules by mouth three times daily as needed. varicella virus vaccine, PF, (VARIVAX) 1,350 unit/0.5 mL injection Give 1 dose then repeat dose in 4 to 8 weeks later COMPOUNDED PRESCRIPTION [place] capsule 1 at bedtime BIOTIN ORAL Take by mouth. MAGNESIUM ORAL Take 1 capsule by mouth twice daily. LEVALBUTEROL HCL (XOPENEX INHALATION) Use 1 Vial via nebulizer every 6 hours as needed. Cholecalciferol, Vitamin D3, 5,000 unit tab Take 1 tablet by mouth once daily. No current facility-administered medications for this visit. OBJECTIVE: BP 98/70 Pulse 108 Resp 20 Wt 122.9 kg (271 lb) BMI 40.14 kg/m? Patient is alert, oriented times 3, no apparent distress, affect is bright, reactive. Last 5 Encounter BP Readings: Date: BP: 07/04/2017 98/70 05/28/2017 137/81 05/14/2017 120/78 03/27/2017 130/80 01/30/2017 114/78 Last 5 Encounter Wt Readings: Date: Wt: 07/04/2017 122.9 kg (271 lb) 05/28/2017 122.2 kg (269 lb 6.4 oz) 05/14/2017 122 kg (269 lb) 03/27/2017 118.8 kg (262 lb) 01/30/2017 125.2 kg (276 lb) Heart: Regular rate, rhythm, no murmurs, gallops, rubs. Lungs: Clear to auscultation, bilaterally, breathing non labored. Ext: No cyanosis, clubbing, or edema. HgA1C 8.2 (up from 7.1) ASSESSMENT AND PLAN: Encounter Diagnosis ICD-10-CM 1. Morbid obesity with BMI of 40.0-44.9, adult ([facility]) E66.01 Z68.41 2. Type 2 diabetes mellitus with polyneuropathy ([facility]) E11.42 Continue present management but need to cut back on carbs and increase exercise. Doing well with calorie control with avoiding going over 1800 when active. Weight up a couple pounds but still lower than where she was in January. Needs to keep working on diet and exercise with lifestyle changes for effective weight loss. Above issues addressed with patient. Patient involved in shared decision making for management of her medical issues. History and medications reviewed. Epic updated as needed Refills taken care of and meds adjusted as indicated after reviewed history, exam and labs. Health Maintenance reviewed. Updated record and/or ordered tests as recorded. Encouraged on efforts at healthy diet and regular exercise and adequate sleep. The majority of the visit was spent counseling and/or coordinating care for the patient. Cemf-ee-wtfw time was at least 25 minutes. MD Stoney Dillon MD 07/04/2017 3:08 PM Addendum Gas X (simethicone) 125 mg 4 times daily max dose (also comes in 80 mg). Nutrafol for hair Referring Provider: STONEY BLUE [[id number]] Allergies As of Date: 07/04/2017 Noted Allergy Reaction CIPROFLOXACIN 04/18/2011 14 - Other: See Comments Comments: Mother highly allergic to medication IMITREX (SUMATRIPTAN SUCCINATE) 04/18/2011 8 - GI Upset 11 - Vomiting NICKEL 05/14/2015 4 - Hives 7 - Swelling ADHESIVE 04/18/2011 2 - Rash 14 - Other: See Comments Comments: Pulling of skin ASPIRIN 04/18/2011 8 - GI Upset CORTICOSTEROIDS (GLUCOCORTICOIDS) 08/01/2014 14 - Other: See Comments Comments: Increase in blood sugars CYMBALTA (DULOXETINE) 11/28/2013 5 - Intolerance EFFEXOR (VENLAFAXINE) 08/23/2015 14 - Other: See Comments LIPITOR (ATORVASTATIN CALCIUM) 08/26/2014 4 - Hives NARCOTICS (OPIOIDS - MORPHINE JERRICA*11/02/2011 14 - Other: See Comments Comments: Mood changes/depression worsen/if taking must be monitored closley NIFEDIPINE 08/27/2013 14 - Other: See Comments Comments: Chest pain heart racing and skin flushing SULFA (SULFONAMIDE ANTIBIOTICS) 04/18/2011 14 - Other: See Comments Comments: headaches TOMATOES 01/26/2017 8 - GI Upset TOPAMAX (TOPIRAMATE) 11/28/2013 5 - Intolerance ULTRAM (TRAMADOL) 08/01/2014 12 - Shortness of Breath WHEAT, WHEAT GERM 01/26/2017 2 - Rash Date Reviewed: 07/04/2017 Reviewed by: Tiffany Campa) CHAI Gaffney - Fully Assessed Reason for Visit: 6 Month Exam [189] Primary Visit Diagnosis:Morbid obesity with BMI of 40.0-44.9, adult ([facility]) [E66.01, Z68.41] Other Visit Diagnosis:Type 2 diabetes mellitus with polyneuropathy ([facility]) [E11.42] Prescriptions as of 07/04/2017 Sig: VITAMIN D-3 ORAL Take by mouth. GLIMEPIRIDE 4 MG TABLET TAKE 1 TABLET BY MOUTH TWICE * DULAGLUTIDE 1.5 MG/0.5 ML SUB* Inject 1.5 mL subcutaneously * FLUVOXAMINE 25 MG TABLET Take 1 tablet by mouth daily * PANTOPRAZOLE 40 MG TABLET,DEL* Take 1 tablet by mouth daily * ENALAPRIL MALEATE 5 MG TABLET Take 1 tablet by mouth once d* METFORMIN ER 500 MG TABLET,EX* Take 2 tablets by mouth twice* OLOPATADINE 0.1 % EYE DROPS Use 1 Drop in both eyes twice* LEVALBUTEROL 0.63 MG/3 ML LUIS* Use 3 mL via nebulizer every * LORAZEPAM 1 MG TABLET Take 1 tablet by mouth twice * CRESTOR 5 MG TABLET Take 1 tablet by mouth once d* ONDANSETRON 4 MG DISINTEGRATI* Take 1 tablet by mouth every * LEVONORGESTREL 20 MCG/24 HR (* Inserted in office TUDORZA PRESSAIR INHALATION Inhale as instructed. LANCETS Test blood sugar(s) 2 times d* BLOOD SUGAR DIAGNOSTIC STRIPS Test blood sugar(s) 2 times d* * BLOOD-GLUCOSE METER KIT Test sugars 2 time daily and * * BUDESONIDE-FORMOTEROL HFA 160* Inhale 2 Puffs as instructed * BENZONATATE 100 MG CAPSULE Take 2 capsules by mouth thre* VARICELLA VIRUS VACCINE LIVE * Give 1 dose then repeat dose * COMPOUNDED PRESCRIPTION [place] capsule 1 at bedtime BIOTIN ORAL Take by mouth. MAGNESIUM ORAL Take 1 capsule by mouth twice* XOPENEX INHALATION Use 1 Vial via nebulizer ever* CHOLECALCIFEROL (VITAMIN D3) * Take 1 tablet by mouth once d* Medication notes this encounter PANTOPRAZOLE 40 MG TABLET,DELAYED RELEASE >> Stoney Blue MD 07/04/2017 3:04 PM >> STONEY BLUE MD SunJuly 04, 2017 3:04 PM Still as needed (usually twice a week) METHOCARBAMOL 500 MG TABLET >> Stoney Blue MD 07/04/2017 3:04 PM did not tolerate CHOLECALCIFEROL (VITAMIN D3) 5,000 UNIT TABLET >> Stoney Blue MD 07/04/2017 3:01 PM >> STONEY BLUE MD SunJuly 04, 2017 3:01 PM Still taking Problem List As Of Date 07/04/2017 Noted Resolved Diabetes mellitus type 2, uncontrolled (HCC) [E*INVALID FOR*09/03/2015 Hyperlipidemia [E78.5] INVALID FOR* Obesity, Class III, BMI 40-49.9 (morbid obesity*INVALID FOR*09/03/2015 Hypothyroid [E03.9] INVALID FOR*09/03/2015 Obstructive sleep apnea [G47.33] INVALID FOR*09/03/2015 Asthma, moderate persistent [J45.40] INVALID FOR*09/03/2015 Albuminuria [R80.9] INVALID FOR*09/03/2015 Vitamin D deficiency [E55.9] INVALID FOR* Faintness [R55] INVALID FOR*09/03/2015 Type 2 diabetes, controlled, with neuropathy (H*INVALID FOR*02/05/2015 PCOS (polycystic ovarian syndrome) [E28.2] INVALID FOR* More... Migraine headache without aura [G43.009] INVALID FOR*09/03/2015 More... Restless legs syndrome (RLS) [G25.81] INVALID FOR*09/03/2015 More... Right ankle instability [M25.371] INVALID FOR*09/03/2015 Left ankle instability [M25.372] INVALID FOR*09/03/2015 Type 2 diabetes mellitus with hyperglycemia (HC* More... Type 2 diabetes mellitus with neurological john* More... Type 2 diabetes mellitus with polyneuropathy (H* Hypoglycemia unawareness associated with type 2* Obesity [E66.9] 09/05/2016 Hypothyroid [E03.9] More... Ovarian cyst, left [N83.202] INVALID FOR* Multiple thyroid nodules [E04.2] INVALID FOR* Bilateral low back pain with sciatica [M54.40] INVALID FOR* Asymptomatic PVCs [I49.3] INVALID FOR* Morbid obesity with BMI of 40.0-44.9, adult (HC*INVALID FOR*05/14/2017 Statin intolerance [Z78.9] INVALID FOR* More... Hypogammaglobulinemia (HCC) [D80.1] INVALID FOR* Recurrent infections [B99.9] INVALID FOR* Allergic rhinitis [J30.9] INVALID FOR* Asthma, well controlled [J45.909] INVALID FOR* MEGHAN on CPAP [G47.33, Z99.89] INVALID FOR* Obesity (BMI 30-39.9) [E66.9] INVALID FOR* Other instructions from your clinician: Gas X (simethicone) 125 mg 4 times daily max dose (also comes in 80 mg). Nutrafol for hair Medications Discontinued During This Encounter clotrimazole-betamethasone (LOTRISON* 30 g 0 02/14/2016 07/04/2017 Route: TOPICAL Sig: Apply 1 application to affected area twice daily. Disc: Reason for discontinue is not on file. COMPOUNDED PRESCRIPTION 08/15/2016 07/04/2017 Class: OTC Sig: Biotin 15,000 once daily Disc: Reason for discontinue is not on file. Cranberry Extract (CRANBERRY) 450 mg* 0 06/16/2013 07/04/2017 Class: Historical Med Route: ORAL Sig: Take 1 tablet by mouth twice daily. Disc: Reason for discontinue is not on file. fluconazole (DIFLUCAN) 150 mg tablet 6 ta* 5 08/15/2016 07/04/2017 Sig: Start after 2 week induction therapy with 100 mg dose--take 150 mg once weekly. Disc: Course of therapy completed HYDROcodone-acetaminophen (NORCO) 5-* 10 t* 0 02/05/2016 07/04/2017 Class: Print RX Route: ORAL Sig: Take 1 tablet by mouth every 8 hours as needed. Disc: Reason for discontinue is not on file. MAGNESIUM MALATE MISC 07/04/2017 Class: Historical Med Route: Miscell. (Med.Supl.;Non-Drugs) Si,250 mg twice daily. Disc: Reason for discontinue is not on file. meclizine (ANTIVERT) 12.5 mg tab 08/15/2016 07/04/2017 Class: Med Update Si pills twice daily when was flared up and down to 1 pill twice daily as tapers off by end of August(Dr. Lyon--ENT) Disc: Course of therapy completed methocarbamol (ROBAXIN) 500 mg tablet 07/04/2017 Class: Historical Med Route: ORAL Sig: Take 500 mg by mouth twice daily. split in half as needed for back spasms Disc: Reason for discontinue is not on file. tiZANidine (ZANAFLEX) 2 mg tablet 15 t* 0 04/27/2016 07/04/2017 Route: ORAL Sig: Take 1 tablet by mouth every 6 hours as needed. Disc: Reason for discontinue is not on file. Disposition: Return for make 1 on in July in case cannot make SMA. Follow-up and Disposition History Recorded Encounter Status:Closed by STONEY BLUE MD on 07/17/17 COMPREHENSIVE METABOLIC Collected: 07/03/2017 Status: F Source: [facility] PANEL 5:10 PM [facility] REPOSITORY TYPE CODE TESTS RESULT OUT OF REFERENCE UNITS RANGE LAB GLU 70-99 mg/dL High Glucose 212 Result Comment: This test result might be falsely depressed or falsely elevated on samples drawn from patients taking Sulfasalazine and Sulfapyridine. Venipuncture should occur prior to taking either of these drugs. LAB BUN 8-25 mg/dL BUN 12 LAB CREA 0.40-1.10 mg/dL Creatinine 0.62 LAB eGFR ml/min/1.73sq .m eGFR,NonAfrican-Am erican >=60 Result Comment: Non- GFR Calc eGFR is an estimated Glomerular Filtration Rate based on the value of the patient's serum creatinine. In outpatients, eGFR should be used as a helpful tool in screening for CKD. In inpatients or patients with acute renal failure, eGFR represents the GFR at the moment of the draw and should be used with caution. LAB eGFRB ml/min/1.73sq.m eGFR, -Syrian >=60 Result Comment: GFR Calc LAB CALCM 8.4-10.2 mg/dL Calcium 8.8 LAB NA 135-145 mmol/L Sodium 139 LAB K 3.5-5.1 mmol/L Potassium 4.2 LAB CL 98-108 mmol/L Chloride 105 LAB CO2 21-32 mmol/L CO2 24 LAB AST 0-45 U/L AST (SGOT) 20 Result Comment: This test result might be falsely depressed or falsely elevated on samples drawn from patients taking Sulfasalazine and Sulfapyridine. Venipuncture should occur prior to taking either of these drugs. LAB ALT 14-65 U/L ALT (SGPT) 51 Result Comment: This test result might be falsely depressed or falsely elevated on samples drawn from patients taking Sulfasalazine and Sulfapyridine. Venipuncture should occur prior to taking either of these drugs. LAB ALKP 40-140 U/L Alkaline Phosphatase 47 LAB BILIT 0.3-1.2 mg/dL Bilirubin,Total Low 0.2 LAB PROT 6.0-8.0 g/dL Protein, Total 7.1 LAB ALB 3.2-5.2 g/dL Albumin 3.6 Performed By: #### TSH, FT4, HBA1C, CMET #### Unless otherwise noted, all testing performed by [facility] [address] [place], [place] [address] CLIA: [id number] Food Technology Teacher: Francine Celaya M.D. T4, FREE Collected: 07/03/2017 Status: F Source: [facility] 5:10 PM [facility] REPOSITORY TYPE CODE TESTS RESULT OUT OF RANGE REFERENCE UNITS LAB FT4 0.76-1.79 ng/dL Normal T4, Free 0.9 Result Comment: Samples from patients routinely receiving high dose biotin therapy (100-300 mg/day) may show falsely decreased results. Please correlate clinically. Performed By: #### TSH, FT4, HBA1C, CMET #### Unless otherwise noted, all testing performed by [place] [address] CLIA: [id number] Food Technology Teacher: Francine Celaya M.D. TSH Collected: 07/03/2017 Status: F Source: [facility] 5:10 PM [facility] REPOSITORY TYPE CODE TESTS RESULT OUT OF RANGE REFERENCE UNITS LAB TSH 0.320-5.000 uIU/mL Normal TSH 1.54 Result Comment: Samples from patients routinely receiving high dose biotin therapy (100-300 mg/day) may show falsely decreased results. Please correlate clinically. Performed By: #### TSH, FT4, HBA1C, CMET #### Unless otherwise noted, all testing performed by [place] [address] CLIA: [id number] Food Technology Teacher: Francine Celaya M.D. HEMOGLOBIN A1C Collected: 07/03/2017 Status: F Source: [facility] 5:10 PM [facility] REPOSITORY TYPE CODE TESTS RESULT OUT OF REFERENCE UNITS RANGE LAB HBA1C 4.1-6.5 % High Hemoglobin A1C 8.2 Performed By: #### TSH, FT4, HBA1C, CMET #### Unless otherwise noted, all testing performed by [place] [address] CLIA: [id number] Food Technology Teacher: Francine Celaya M.D. CNOV Observed: 07/02/2017 Status: COMPLETED Source: [facility] 3:00 PM [facility] REPOSITORY Office Visit (INTMWS) SHARATHMARIANA ([id number]) 1980 F Date Time Provider Department 07/02/17 3:00 PM STONEY BLUE INTMWS During your visit today, we recorded the following information about you: Referring Provider: STONEY BLUE [[id number]] Allergies As of Date: 07/02/2017 Noted Allergy Reaction CIPROFLOXACIN 04/18/2011 14 - Other: See Comments Comments: Mother highly allergic to medication IMITREX (SUMATRIPTAN SUCCINATE) 04/18/2011 8 - GI Upset 11 - Vomiting NICKEL 05/14/2015 4 - Hives 7 - Swelling ADHESIVE 04/18/2011 2 - Rash 14 - Other: See Comments Comments: Pulling of skin ASPIRIN 04/18/2011 8 - GI Upset CORTICOSTEROIDS (GLUCOCORTICOIDS) 08/01/2014 14 - Other: See Comments Comments: Increase in blood sugars CYMBALTA (DULOXETINE) 11/28/2013 5 - Intolerance EFFEXOR (VENLAFAXINE) 08/23/2015 14 - Other: See Comments LIPITOR (ATORVASTATIN CALCIUM) 08/26/2014 4 - Hives NARCOTICS (OPIOIDS - MORPHINE JERRICA*11/02/2011 14 - Other: See Comments Comments: Mood changes/depression worsen/if taking must be monitored closley NIFEDIPINE 08/27/2013 14 - Other: See Comments Comments: Chest pain heart racing and skin flushing SULFA (SULFONAMIDE ANTIBIOTICS) 04/18/2011 14 - Other: See Comments Comments: headaches TOMATOES 01/26/2017 8 - GI Upset TOPAMAX (TOPIRAMATE) 11/28/2013 5 - Intolerance ULTRAM (TRAMADOL) 08/01/2014 12 - Shortness of Breath WHEAT, WHEAT GERM 01/26/2017 2 - Rash Date Reviewed: 06/27/2017 Reviewed by: Charmaine Kumar RN - Fully Assessed Reason for Visit: Patient Left Without Being Seen [2005] Primary Visit Diagnosis:Patient left without being seen [Z53.21] Comment:had to be somewhere for work so could not stay Prescriptions as of 07/02/2017 Sig: VITAMIN D-3 ORAL Take by mouth. BENZONATATE 100 MG CAPSULE Take 2 capsules by mouth thre* VARICELLA VIRUS VACCINE LIVE * Give 1 dose then repeat dose * METHOCARBAMOL 500 MG TABLET Take 500 mg by mouth twice da* GLIMEPIRIDE 4 MG TABLET TAKE 1 TABLET BY MOUTH TWICE * DULAGLUTIDE 1.5 MG/0.5 ML SUB* Inject 1.5 mL subcutaneously * FLUVOXAMINE 25 MG TABLET Take 1 tablet by mouth daily * PANTOPRAZOLE 40 MG TABLET,DEL* Take 1 tablet by mouth daily * ENALAPRIL MALEATE 5 MG TABLET Take 1 tablet by mouth once d* METFORMIN ER 500 MG TABLET,EX* Take 2 tablets by mouth twice* MECLIZINE 12.5 MG TABLET 2 pills twice daily when was * OLOPATADINE 0.1 % EYE DROPS Use 1 Drop in both eyes twice* LEVALBUTEROL 0.63 MG/3 ML LUIS* Use 3 mL via nebulizer every * LORAZEPAM 1 MG TABLET Take 1 tablet by mouth twice * FLUCONAZOLE 150 MG TABLET Start after 2 week induction * COMPOUNDED PRESCRIPTION Biotin 15,000 once daily COMPOUNDED PRESCRIPTION [place] capsule 1 at bedtime BIOTIN ORAL Take by mouth. TIZANIDINE 2 MG TABLET Take 1 tablet by mouth every * CRESTOR 5 MG TABLET Take 1 tablet by mouth once d* CLOTRIMAZOLE-BETAMETHASONE 1 * Apply 1 application to affect* HYDROCODONE 5 MG-ACETAMINOPHE* Take 1 tablet by mouth every * MAGNESIUM MALATE MISC 1,250 mg twice daily. MAGNESIUM ORAL Take 1 capsule by mouth twice* ONDANSETRON 4 MG DISINTEGRATI* Take 1 tablet by mouth every * LEVONORGESTREL 20 MCG/24 HR (* Inserted in office TUDORZA PRESSAIR INHALATION Inhale as instructed. LANCETS Test blood sugar(s) 2 times d* XOPENEX INHALATION Use 1 Vial via nebulizer ever* CHOLECALCIFEROL (VITAMIN D3) * Take 1 tablet by mouth once d* BLOOD SUGAR DIAGNOSTIC STRIPS Test blood sugar(s) 2 times d* CRANBERRY FRUIT CONCENTRATE 4* Take 1 tablet by mouth twice * * BLOOD-GLUCOSE METER KIT Test sugars 2 time daily and * * BUDESONIDE-FORMOTEROL HFA 160* Inhale 2 Puffs as instructed * Problem List As Of Date 07/02/2017 Noted Resolved Diabetes mellitus type 2, uncontrolled (HCC) [E*INVALID FOR*09/03/2015 Hyperlipidemia [E78.5] INVALID FOR* Obesity, Class III, BMI 40-49.9 (morbid obesity*INVALID FOR*09/03/2015 Hypothyroid [E03.9] INVALID FOR*09/03/2015 Obstructive sleep apnea [G47.33] INVALID FOR*09/03/2015 Asthma, moderate persistent [J45.40] INVALID FOR*09/03/2015 Albuminuria [R80.9] INVALID FOR*09/03/2015 Vitamin D deficiency [E55.9] INVALID FOR* Faintness [R55] INVALID FOR*09/03/2015 Type 2 diabetes, controlled, with neuropathy (H*INVALID FOR*02/05/2015 PCOS (polycystic ovarian syndrome) [E28.2] INVALID FOR* More... Migraine headache without aura [G43.009] INVALID FOR*09/03/2015 More... Restless legs syndrome (RLS) [G25.81] INVALID FOR*09/03/2015 More... Right ankle instability [M25.371] INVALID FOR*09/03/2015 Left ankle instability [M25.372] INVALID FOR*09/03/2015 Type 2 diabetes mellitus with hyperglycemia (HC* More... Type 2 diabetes mellitus with neurological john* More... Type 2 diabetes mellitus with polyneuropathy (H* Hypoglycemia unawareness associated with type 2* Obesity [E66.9] 09/05/2016 Hypothyroid [E03.9] More... Ovarian cyst, left [N83.202] INVALID FOR* Multiple thyroid nodules [E04.2] INVALID FOR* Bilateral low back pain with sciatica [M54.40] INVALID FOR* Asymptomatic PVCs [I49.3] INVALID FOR* Morbid obesity with BMI of 40.0-44.9, adult (HC*INVALID FOR*05/14/2017 Statin intolerance [Z78.9] INVALID FOR* More... Hypogammaglobulinemia (HCC) [D80.1] INVALID FOR* Recurrent infections [B99.9] INVALID FOR* Allergic rhinitis [J30.9] INVALID FOR* Asthma, well controlled [J45.909] INVALID FOR* MEGHAN on CPAP [G47.33, Z99.89] INVALID FOR* Obesity (BMI 30-39.9) [E66.9] INVALID FOR* Encounter Status:Closed by STONEY BLUE MD on 07/02/17 XR ANKLE 3V AP/LAT/OBL Observed: 06/27/2017 Status: F Source: [facility] 3:58 PM [facility] REPOSITORY * * *Final Report* * * DATE OF EXAM: Jun 27 2017 3:58PM [id number] - XR ANKLE 3V AP/LAT/OBL MICHAEL / PROCEDURE REASON: multiple diagnoses * * * * Physician Interpretation * * * * Bilateral ankles/bilateral feet HISTORY: 36 years old HISTORY: Flat foot (pes planus) (acquired), right foot Flat foot (pes planus) (acquired), left foot Plantar fascial fibromatosis chronic bilateral arch \EandE\ heel pain. hx diabetes TECHNIQUE: Images: XR FOOT 3V AP/LAT/OBL MICHAEL, XR ANKLE 3V AP/LAT/OBL MICHAEL Comparison: None. RESULT: Findings: Bone density well-preserved. No periarticular erosions are seen. No heel spurs are seen. Right side: RIGHT ankle: No fractures or dislocations are seen. RIGHT foot: No acute pathology Left side: No fractures or dislocations are seen. LEFT ankle: No fractures or dislocations. Bone density is well preserved. LEFT foot: No fractures or dislocations. Bone density well-preserved. IMPRESSION: No acute pathology. Monorail Crane Operator: BLANCA Transcribe Date/Time: Jun 27 2017 5:19P Dictated by : MARY CHARLES DO This examination was interpreted and the report reviewed and electronically signed by: MARY CHARLES DO on Jun 27 2017 5:22PM EST [id number] XR FOOT 3V AP/LAT/OBL Observed: 06/27/2017 Status: F Source: [facility] 3:58 PM [facility] REPOSITORY * * *Final Report* * * DATE OF EXAM: Jun 27 2017 3:58PM [id number] - XR FOOT 3V AP/LAT/OBL MICHAEL / PROCEDURE REASON: multiple diagnoses * * * * Physician Interpretation * * * * Bilateral ankles/bilateral feet HISTORY: 36 years old HISTORY: Flat foot (pes planus) (acquired), right foot Flat foot (pes planus) (acquired), left foot Plantar fascial fibromatosis chronic bilateral arch \EandE\ heel pain. hx diabetes TECHNIQUE: Images: XR FOOT 3V AP/LAT/OBL MICHAEL, XR ANKLE 3V AP/LAT/OBL MICHAEL Comparison: None. RESULT: Findings: Bone density well-preserved. No periarticular erosions are seen. No heel spurs are seen. Right side: RIGHT ankle: No fractures or dislocations are seen. RIGHT foot: No acute pathology Left side: No fractures or dislocations are seen. LEFT ankle: No fractures or dislocations. Bone density is well preserved. LEFT foot: No fractures or dislocations. Bone density well-preserved. IMPRESSION: No acute pathology. Monorail Crane Operator: BLANCA Transcribe Date/Time: Jun 27 2017 5:19P Dictated by : MARY CHARLES DO This examination was interpreted and the report reviewed and electronically signed by: MARY CHARLES DO on Jun 27 2017 5:22PM EST [id number] PROGRESS Observed: 06/27/2017 Status: COMPLETED Source: [place] 3:37 PM [facility] REPOSITORY HNO ID: [id number] Author: Penny Kumar Service: (none) Author Type: (none) Type: Progress Notes Filed: 06/27/2017 3:58 PM Note Text: Radiology Service Progress Note PATIENT NAME: Mariana Early DATE OF SERVICE: June 27, 2017 TIME: 3:37 PM PATIENT IDENTITY VERIFICATION COMPLETED USING TWO (2) METHODS: Patient confirmed name verbally and Date of . PATIENT GENDER DATA: Female. status: : No status: NO. PATIENT RELEVANT IMPLANT DATA REVIEWED: Not Applicable RADIOLOGY DEPARTMENT: General X-ray: Exam(s) Completed: Lower Extremity X-Ray(s): Ankle, Bilateral and Wt. Bearing and Feet, Bilateral and Wt. Bearing: PERIPHERAL IV DATA: Not applicable SIGNED BY: Penny Kumar June 27, 2017 3:37 PM PROGRESS Observed: 06/27/2017 Status: COMPLETED Source: [place] 3:12 PM [facility] REPOSITORY HNO ID: [id number] Author: Charmaine Kumar RN Service: (none) Author Type: (none) Type: Progress Notes Filed: 06/27/2017 9:53 PM Note Text: ? Aliyah Goss DPM Department of Podiatry [address] [facility] [address] Dept: [phone] Dept 06/27/2017 Follow Up Podiatric Office Visit: HPI: Mariana Early is a 36 year old female. Patient presents for follow up for bilateral ankle pain. Patient complains of pain. Pain is rated at 3-7/10, and described as aching and sharp. Pain is worse with increased activity. Interventions include: ice, NSAIDs, ankle brace, Voltaren gel, Power Steps. Rest and ice help. Her diabetic shoes and inserts seem to help. She is scheduled to hand picker new diabetic shoes and inserts next week. She has not done Physical Therapy. Physical Exam: Constitutional: Pt is a well developed 36 year old female who is alert, oriented and cooperative Eyes: Following during examination. No redness or drainage. Respiratory: RR normal and nonlabored. Even breathing. No evidence of distress or shortness of breath. Psychology: Patient is engaged during conversation. Normal affect and mood. Does not appear depressed or anxious during encounter. Vascular: Dorsalis pedis and posterior tibial pulses palpable as palpable b/l Capillary Fill time < 5 seconds to digits 1-5 b/l Skin temperature warm to warm proximal to distal b/l Hair growth present to digits Neurological: intact light touch/epicritic sensation - tinel to b/l lower extremity Dermatological: Skin appears well hydrated and supple. good color, texture, turgor. Callosities absent. .Open lesions absent. Wound: Not present. Musculoskeletal/Orthopaedic: Patient has pain to palpation of right navicular and medial band of plantar fascia, b/l R>L Foot type is pronated structurally AJ ROM is full with knee extended and flexed 1st MPJ is full when loaded and no pain or crepitus are noted with ROM. MTJ, STJ are full and free of pain and crepitus. +5/5 muscle strength dorsiflexion, plantarflexion, inversion, eversion b/l ASSESSMENT: (M21.41, M21.42) Pes planus of both feet (primary encounter diagnosis (M72.2) Plantar fasciitis, bilateral PLAN: Patient was examined and informed of current findings Discussed b/l heel and arch pain. Will send patient for physical therapy. She is to continue with home stretching and nsaids as needed. Will get xrays of b/l foot and ankle f/u in 1 month Aliyha Goss DPM CNOV Observed: 06/27/2017 Status: COMPLETED Source: [place] 2:40 PM [facility] REPOSITORY Office Visit (PODIWS) MARIANA EARLY ([id number]) 1980 F Date Time Provider Department 06/27/17 2:40 PM ALIYAH GOSS PODIWS During your visit today, we recorded the following information about you: Charmaine Kumar RN 06/27/2017 3:22 PM Signed ? Aliyah Goss DPM Department of Podiatry [address] [facility] [address] Dept: [phone] Dept 06/27/2017 Follow Up Podiatric Office Visit: HPI: Mariana Early is a 36 year old female. Patient presents for follow up for bilateral ankle pain. Patient complains of pain. Pain is rated at 3-7/10, and described as aching and sharp. Pain is worse with increased activity. Interventions include: ice, NSAIDs, ankle brace, Voltaren gel, Power Steps. Rest and ice help. Her diabetic shoes and inserts seem to help. She is scheduled to hand picker new diabetic shoes and inserts next week. She has not done Physical Therapy. Physical Exam: Constitutional: Pt is a well developed 36 year old female who is alert, oriented and cooperative Eyes: Following during examination. No redness or drainage. Respiratory: RR normal and nonlabored. Even breathing. No evidence of distress or shortness of breath. Psychology: Patient is engaged during conversation. Normal affect and mood. Does not appear depressed or anxious during encounter. Vascular: Dorsalis pedis and posterior tibial pulses palpable as palpable b/l Capillary Fill time < 5 seconds to digits 1-5 b/l Skin temperature warm to warm proximal to distal b/l Hair growth present to digits Neurological: intact light touch/epicritic sensation - tinel to b/l lower extremity Dermatological: Skin appears well hydrated and supple. good color, texture, turgor. Callosities absent. .Open lesions absent. Wound: Not present. Musculoskeletal/Orthopaedic: Patient has pain to palpation of right navicular and medial band of plantar fascia, b/l R>L Foot type is pronated structurally AJ ROM is full with knee extended and flexed 1st MPJ is full when loaded and no pain or crepitus are noted with ROM. MTJ, STJ are full and free of pain and crepitus. +5/5 muscle strength dorsiflexion, plantarflexion, inversion, eversion b/l ASSESSMENT: (M21.41, M21.42) Pes planus of both feet (primary encounter diagnosis (M72.2) Plantar fasciitis, bilateral PLAN: Patient was examined and informed of current findings Discussed b/l heel and arch pain. Will send patient for physical therapy. She is to continue with home stretching and nsaids as needed. Will get xrays of b/l foot and ankle f/u in 1 month Aliyah Goss DPM Referring Provider: ALIYAH GOSS [[id number]] Allergies As of Date: 06/27/2017 Noted Allergy Reaction CIPROFLOXACIN 04/18/2011 14 - Other: See Comments Comments: Mother highly allergic to medication IMITREX (SUMATRIPTAN SUCCINATE) 04/18/2011 8 - GI Upset 11 - Vomiting NICKEL 05/14/2015 4 - Hives 7 - Swelling ADHESIVE 04/18/2011 2 - Rash 14 - Other: See Comments Comments: Pulling of skin ASPIRIN 04/18/2011 8 - GI Upset CORTICOSTEROIDS (GLUCOCORTICOIDS) 08/01/2014 14 - Other: See Comments Comments: Increase in blood sugars CYMBALTA (DULOXETINE) 11/28/2013 5 - Intolerance EFFEXOR (VENLAFAXINE) 08/23/2015 14 - Other: See Comments LIPITOR (ATORVASTATIN CALCIUM) 08/26/2014 4 - Hives NARCOTICS (OPIOIDS - MORPHINE JERRICA*11/02/2011 14 - Other: See Comments Comments: Mood changes/depression worsen/if taking must be monitored mary NIFEDIPINE 08/27/2013 14 - Other: See Comments Comments: Chest pain heart racing and skin flushing SULFA (SULFONAMIDE ANTIBIOTICS) 04/18/2011 14 - Other: See Comments Comments: headaches TOMATOES 01/26/2017 8 - GI Upset TOPAMAX (TOPIRAMATE) 11/28/2013 5 - Intolerance ULTRAM (TRAMADOL) 08/01/2014 12 - Shortness of Breath WHEAT, WHEAT GERM 01/26/2017 2 - Rash Date Reviewed: 06/27/2017 Reviewed by: Charmaine Kumar RN - Fully Assessed Reason for Visit: Follow Up [171] Cmt: 1 mo f/u ankle instability, R Primary Visit Diagnosis:Pes planus of both feet [M21.41, M21.42] Other Visit Diagnosis:Plantar fasciitis, bilateral [M72.2] Order(s):XR FOOT GENERAL 3V AP/LAT/OBL BILAT [[id number]] Order #: [id number] FUTURE XR ANKLE GENERAL 3V AP/LAT/OBL BILAT [[id number]] Order #: [id number] FUTURE CONSULT TO PHYSICAL THERAPY [9032] Order #: [id number]: 1 Prescriptions as of 06/27/2017 Sig: VITAMIN D-3 ORAL Take by mouth. BENZONATATE 100 MG CAPSULE Take 2 capsules by mouth thre* GLIMEPIRIDE 4 MG TABLET TAKE 1 TABLET BY MOUTH TWICE * DULAGLUTIDE 1.5 MG/0.5 ML SUB* Inject 1.5 mL subcutaneously * FLUVOXAMINE 25 MG TABLET Take 1 tablet by mouth daily * PANTOPRAZOLE 40 MG TABLET,DEL* Take 1 tablet by mouth daily * ENALAPRIL MALEATE 5 MG TABLET Take 1 tablet by mouth once d* METFORMIN ER 500 MG TABLET,EX* Take 2 tablets by mouth twice* OLOPATADINE 0.1 % EYE DROPS Use 1 Drop in both eyes twice* LEVALBUTEROL 0.63 MG/3 ML LUIS* Use 3 mL via nebulizer every * LORAZEPAM 1 MG TABLET Take 1 tablet by mouth twice * CRESTOR 5 MG TABLET Take 1 tablet by mouth once d* ONDANSETRON 4 MG DISINTEGRATI* Take 1 tablet by mouth every * LEVONORGESTREL 20 MCG/24 HR (* Inserted in office TUDORZA PRESSAIR INHALATION Inhale as instructed. LANCETS Test blood sugar(s) 2 times d* BLOOD SUGAR DIAGNOSTIC STRIPS Test blood sugar(s) 2 times d* * BLOOD-GLUCOSE METER KIT Test sugars 2 time daily and * * BUDESONIDE-FORMOTEROL HFA 160* Inhale 2 Puffs as instructed * VARICELLA VIRUS VACCINE LIVE * Give 1 dose then repeat dose * METHOCARBAMOL 500 MG TABLET Take 500 mg by mouth twice da* MECLIZINE 12.5 MG TABLET 2 pills twice daily when was * FLUCONAZOLE 150 MG TABLET Start after 2 week induction * COMPOUNDED PRESCRIPTION Biotin 15,000 once daily COMPOUNDED PRESCRIPTION [place] capsule 1 at bedtime BIOTIN ORAL Take by mouth. TIZANIDINE 2 MG TABLET Take 1 tablet by mouth every * CLOTRIMAZOLE-BETAMETHASONE 1 * Apply 1 application to affect* HYDROCODONE 5 MG-ACETAMINOPHE* Take 1 tablet by mouth every * MAGNESIUM MALATE MISC 1,250 mg twice daily. MAGNESIUM ORAL Take 1 capsule by mouth twice* XOPENEX INHALATION Use 1 Vial via nebulizer ever* CHOLECALCIFEROL (VITAMIN D3) * Take 1 tablet by mouth once d* CRANBERRY FRUIT CONCENTRATE 4* Take 1 tablet by mouth twice * Problem List As Of Date 06/27/2017 Noted Resolved Diabetes mellitus type 2, uncontrolled (HCC) [E*INVALID FOR*09/03/2015 Hyperlipidemia [E78.5] INVALID FOR* Obesity, Class III, BMI 40-49.9 (morbid obesity*INVALID FOR*09/03/2015 Hypothyroid [E03.9] INVALID FOR*09/03/2015 Obstructive sleep apnea [G47.33] INVALID FOR*09/03/2015 Asthma, moderate persistent [J45.40] INVALID FOR*09/03/2015 Albuminuria [R80.9] INVALID FOR*09/03/2015 Vitamin D deficiency [E55.9] INVALID FOR* Faintness [R55] INVALID FOR*09/03/2015 Type 2 diabetes, controlled, with neuropathy (H*INVALID FOR*02/05/2015 PCOS (polycystic ovarian syndrome) [E28.2] INVALID FOR* More... Migraine headache without aura [G43.009] INVALID FOR*09/03/2015 More... Restless legs syndrome (RLS) [G25.81] INVALID FOR*09/03/2015 More... Right ankle instability [M25.371] INVALID FOR*09/03/2015 Left ankle instability [M25.372] INVALID FOR*09/03/2015 Type 2 diabetes mellitus with hyperglycemia (HC* More... Type 2 diabetes mellitus with neurological john* More... Type 2 diabetes mellitus with polyneuropathy (H* Hypoglycemia unawareness associated with type 2* Obesity [E66.9] 09/05/2016 Hypothyroid [E03.9] More... Ovarian cyst, left [N83.202] INVALID FOR* Multiple thyroid nodules [E04.2] INVALID FOR* Bilateral low back pain with sciatica [M54.40] INVALID FOR* Asymptomatic PVCs [I49.3] INVALID FOR* Morbid obesity with BMI of 40.0-44.9, adult (HC*INVALID FOR*05/14/2017 Statin intolerance [Z78.9] INVALID FOR* More... Hypogammaglobulinemia (HCC) [D80.1] INVALID FOR* Recurrent infections [B99.9] INVALID FOR* Allergic rhinitis [J30.9] INVALID FOR* Asthma, well controlled [J45.909] INVALID FOR* MEGHAN on CPAP [G47.33, Z99.89] INVALID FOR* Obesity (BMI 30-39.9) [E66.9] INVALID FOR* Disposition: Return in about 4 weeks (around 07/25/2017) for bilateral foot pain. Follow-up and Disposition History Recorded Encounter Status:Closed by ALIYAH GOSS DPM on 06/27/17 PROGRESS Observed: 06/14/2017 Status: COMPLETED Source: [place] 4:24 PM [facility] REPOSITORY O ID: [id number] Author: Rafaela Banks Service: (none) Author Type: Solid Waste Facility Supervisor Type: Progress Notes Filed: 06/14/2017 4:25 PM Note Text: Radiology Service Progress Note PATIENT NAME: Mariana Early DATE OF SERVICE: June 14, 2017 TIME: 4:24 PM PATIENT IDENTITY VERIFICATION COMPLETED USING TWO (2) METHODS: Patient confirmed name verbally and Date of . PATIENT GENDER DATA: Female. status: : No status: N/A PATIENT RELEVANT IMPLANT DATA REVIEWED: Not Applicable RADIOLOGY DEPARTMENT: Ultrasound PERIPHERAL IV DATA: Not applicable SIGNED BY: RAFAELA BANKS RDMS RVT June 14, 2017 4:24 PM US THYROID Observed: 06/14/2017 Status: F Source: [place] 4:23 PM [facility] REPOSITORY * * *Final Report* * * DATE OF EXAM: Jun 14 2017 4:23PM [facility] [id number] - US THYROID / PROCEDURE REASON: thyroid * * * * Physician Interpretation * * * * Ultrasound of the thyroid gland History: Multinodular thyroid Findings: Right lobe: The dimensions of the lobe are 4.2 x 1.7 x 1.3 cm. The lobe is heterogeneous. Inferior predominantly hypoechoic nodule 6 x 4 x 4 mm. Eccentric hyperechoic focus may represent small calcification. A few adjacent nodules of similar size. Per technologist other smaller nodules were also present. Left lobe: The dimensions of the lobe are 3.9 x 1.4 x 1.3 cm. Heterogeneous parenchyma. There are few tiny nodules in the LEFT lobe largest about 3 mm in size. Isthmus: Inferior RIGHT isthmus 6 x 5 x 2 mm hypoechoic nodule. Images were stored in a permanent archive. IMPRESSION: Heterogeneous nonenlarged thyroid with subcentimeter nodules. Monorail Crane Operator: BLANCA Transcribe Date/Time: Jun 19 2017 7:45A Dictated by : SHAZIA MCKEON MD This examination was interpreted and the report reviewed and electronically signed by: SHAZIA MCKEON MD on Jun 19 2017 7:49AM EST PROGRESS Observed: 05/28/2017 Status: COMPLETED Source: [place] 4:14 PM [facility] REPOSITORY HNO ID: [id number] Author: Stoney Blue Service: (none) Author Type: Physician Type: Progress Notes Filed: 06/04/2017 12:49 AM Note Text: Patient presents with: SMA-Previsit Assessment SUBJECTIVE: Mariana Early is a 36 year old year old lady here today for Weight Loss SMA plus Appointment for medically supervised weight loss in order to qualify for Bariatric Surgery for [facility] Bariatric Surgery provider to be covered by [facility]. She brought forms for me to review with her after the SMA. Using Fit Bit and My Fitness Pal. PAST MEDICAL HISTORY Diagnosis Date - Asthma Dr. Victorino Trevizo ([facility]) - Dystonia - Elevated LFTs - Fibromyalgia - Hyperlipidemia - Hypoglycemia unawareness associated with type 2 diabetes mellitus (HCC) - Hypothyroid - Migraine headache with aura Not always with aura; treated with Botox Injections by Dr. Ellis - Obesity - Obstructive sleep apnea treated with BiPAP Sleep Medicine Doctor--Dr. Lovett - Occipital neuralgia Dr. 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 benzonatate (TESSALON PERLE) 100 mg capsule Take 2 capsules by mouth three times daily as needed. varicella virus vaccine, PF, (VARIVAX) 1,350 unit/0.5 mL injection Give 1 dose then repeat dose in 4 to 8 weeks later methocarbamol (ROBAXIN) 500 mg tablet Take 500 mg by mouth twice daily. split in half as needed for back spasms glimepiride (AMARYL) 4 mg tablet TAKE 1 TABLET BY MOUTH TWICE DAILY. dulaglutide (TRULICITY) 1.5 mg/0.5 mL pnij Inject 1.5 mL subcutaneously once each week. fluvoxaMINE Maleate (LUVOX) 25 mg tablet Take 1 tablet by mouth daily at bedtime. pantoprazole DR (PROTONIX) 40 mg tablet Take 1 tablet by mouth daily before breakfast. Take on empty stomach, 1/2 hr before meal. TAKING NEEDED NOW enalapril (VASOTEC) 5 mg tablet Take 1 tablet by mouth once daily. metFORMIN ER (GLUCOPHAGE XR) 500 mg 24 hr tablet Take 2 tablets by mouth twice daily. meclizine (ANTIVERT) 12.5 mg tab 2 pills twice daily when was flared up and down to 1 pill twice daily as tapers off by end of August(Dr. Lyon--ENT) olopatadine (PATANOL) 0.1 % ophthalmic solution Use 1 Drop in both eyes twice daily. 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 LORazepam (ATIVAN) 1 mg tablet Take 1 tablet by mouth twice daily as needed for Anxiety. (Counseling Center provider) fluconazole (DIFLUCAN) 150 mg tablet Start after 2 week induction therapy with 100 mg dose--take 150 mg once weekly. COMPOUNDED PRESCRIPTION Biotin 15,000 once daily COMPOUNDED PRESCRIPTION [place] capsule 1 at bedtime BIOTIN ORAL Take by mouth. tiZANidine (ZANAFLEX) 2 mg tablet Take 1 tablet by mouth every 6 hours as needed. CRESTOR 5 mg tablet Take 1 tablet by mouth once daily. clotrimazole-betamethasone (LOTRISONE) cream Apply 1 application to affected area twice daily. HYDROcodone-acetaminophen (NORCO) 5-325 mg per tablet Take 1 tablet by mouth every 8 hours as needed. MAGNESIUM MALATE MISC 1,250 mg twice daily. MAGNESIUM ORAL Take 1 capsule by mouth twice daily. ondansetron orally disintegrating (ZOFRAN ODT) 4 mg disintegrating tablet Take 1 tablet by mouth every 8 hours as needed for Nausea/Vomiting. levonorgestrel (MIRENA) 20 mcg/24 hr (5 years) IUD Inserted in office ACLIDINIUM BROMIDE (TUDORZA PRESSAIR INHALATION) Inhale as instructed. Lancets (FREESTYLE LANCETS) lancets Test blood sugar(s) 2 times daily. Dx: DM2 250.00. Insulin: No LEVALBUTEROL HCL (XOPENEX INHALATION) Use 1 Vial via nebulizer every 6 hours as needed. Cholecalciferol, Vitamin D3, 5,000 unit tab Take 1 tablet by mouth once daily. blood sugar diagnostic (FREESTYLE LITE STRIPS) test strip Test blood sugar(s) 2 times daily. Dx: DM2 250.00. Insulin: No Cranberry Extract (CRANBERRY) 450 mg tab Take 1 tablet by mouth twice daily. Blood-Glucose Meter (FREESTYLE LITE METER) monitoring kit Test sugars 2 time daily and when needed. budesonide-formoterol (SYMBICORT) 160-4.5 mcg/actuation inhaler Inhale 2 Puffs as instructed twice daily. No current facility-administered medications for this visit. OBJECTIVE: BP 137/81 (BP Site: Right Arm, BP Position: Sitting, BP Cuff Size: Large Adult) Pulse 97 Resp 16 Wt 122.2 kg (269 lb 6.4 oz) BMI 39.9 kg/m2 Patient is alert, oriented times 3, no apparent distress, affect is bright, reactive. Last 5 Encounter Wt Readings: Date: Wt: 05/28/2017 122.2 kg (269 lb 6.4 oz) 05/14/2017 122 kg (269 lb) 03/27/2017 118.8 kg (262 lb) 01/30/2017 125.2 kg (276 lb) 01/24/2017 121.6 kg (268 lb) Last 5 Encounter BP Readings: Date: BP: 05/28/2017 137/81 05/14/2017 120/78 03/27/2017 130/80 01/30/2017 114/78 12/01/2016 110/70 ASSESSMENT AND PLAN Encounter Diagnosis ICD-10-CM 1. Obesity (BMI 30-39.9) E66.9 2. 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 See patient instructions. Will continue using [employer] to help her be mindful with her diet and exercise. Needs to keep working on diet and exercise with lifestyle changes for effective weight loss and control of DM as well as BP and lipids. Form completed to verify that patient is working on diet and exercise goals to meet criteria for Bariatric Surgery to be covered by [facility] for minimum number of months with me then the remainder of the months with her Bariatric Surgeon through [employer]. Form will be scanned into [employer]. Copies given to patient so may bring to her surgeon. CHRISTIANO Observed: 05/28/2017 Status: COMPLETED Source: [place] 3:00 PM [facility] REPOSITORY Office Visit (INTMWS) MARIANA EARLY ([id number]) 1980 F Date Time Provider Department 05/28/17 3:00 PM STONEY BLUE INTSRIRAM During your visit today, we recorded the following information about you: Pulse Respiration Blood pressure Weight 97/minute 16/minute 137/81 122.2 kg Stoney Blue MD 06/04/2017 12:49 AM Signed Patient presents with: SMA-Previsit Assessment SUBJECTIVE: Mariana Early is a 36 year old year old lady here today for Weight Loss SMA plus Appointment for medically supervised weight loss in order to qualify for Bariatric Surgery for [facility] Bariatric Surgery provider to be covered by [facility]. She brought forms for me to review with her after the SMA. Using Fit Bit and My Fitness Pal. PAST MEDICAL HISTORY Diagnosis Date - Asthma Dr. Victorino Trevizo ([facility]) - Dystonia - Elevated LFTs - Fibromyalgia - Hyperlipidemia - Hypoglycemia unawareness associated with type 2 diabetes mellitus (HCC) - Hypothyroid - Migraine headache with aura Not always with aura; treated with Botox Injections by Dr. Ellis - Obesity - Obstructive sleep apnea treated with BiPAP Sleep Medicine Doctor--Dr. Lovett - Occipital neuralgia Dr. 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 benzonatate (TESSALON PERLE) 100 mg capsule Take 2 capsules by mouth three times daily as needed. varicella virus vaccine, PF, (VARIVAX) 1,350 unit/0.5 mL injection Give 1 dose then repeat dose in 4 to 8 weeks later methocarbamol (ROBAXIN) 500 mg tablet Take 500 mg by mouth twice daily. split in half as needed for back spasms glimepiride (AMARYL) 4 mg tablet TAKE 1 TABLET BY MOUTH TWICE DAILY. dulaglutide (TRULICITY) 1.5 mg/0.5 mL pnij Inject 1.5 mL subcutaneously once each week. fluvoxaMINE Maleate (LUVOX) 25 mg tablet Take 1 tablet by mouth daily at bedtime. pantoprazole DR (PROTONIX) 40 mg tablet Take 1 tablet by mouth daily before breakfast. Take on empty stomach, 1/2 hr before meal. TAKING NEEDED NOW enalapril (VASOTEC) 5 mg tablet Take 1 tablet by mouth once daily. metFORMIN ER (GLUCOPHAGE XR) 500 mg 24 hr tablet Take 2 tablets by mouth twice daily. meclizine (ANTIVERT) 12.5 mg tab 2 pills twice daily when was flared up and down to 1 pill twice daily as tapers off by end august(Dr. Lyon--ENT) olopatadine (PATANOL) 0.1 % ophthalmic solution Use 1 Drop in both eyes twice daily. 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 LORazepam (ATIVAN) 1 mg tablet Take 1 tablet by mouth twice daily as needed for Anxiety. (Counseling Center provider) fluconazole (DIFLUCAN) 150 mg tablet Start after 2 week induction therapy with 100 mg dose--take 150 mg once weekly. COMPOUNDED PRESCRIPTION Biotin 15,000 once daily COMPOUNDED PRESCRIPTION [place] capsule 1 at bedtime BIOTIN ORAL Take by mouth. tiZANidine (ZANAFLEX) 2 mg tablet Take 1 tablet by mouth every 6 hours as needed. CRESTOR 5 mg tablet Take 1 tablet by mouth once daily. clotrimazole-betamethasone (LOTRISONE) cream Apply 1 application to affected area twice daily. HYDROcodone-acetaminophen (NORCO) 5-325 mg per tablet Take 1 tablet by mouth every 8 hours as needed. MAGNESIUM MALATE MISC 1,250 mg twice daily. MAGNESIUM ORAL Take 1 capsule by mouth twice daily. ondansetron orally disintegrating (ZOFRAN ODT) 4 mg disintegrating tablet Take 1 tablet by mouth every 8 hours as needed for Nausea/Vomiting. levonorgestrel (MIRENA) 20 mcg/24 hr (5 years) IUD Inserted in office ACLIDINIUM BROMIDE (TUDORZA PRESSAIR INHALATION) Inhale as instructed. Lancets (FREESTYLE LANCETS) lancets Test blood sugar(s) 2 times daily. Dx: DM2 250.00. Insulin: No LEVALBUTEROL HCL (XOPENEX INHALATION) Use 1 Vial via nebulizer every 6 hours as needed. Cholecalciferol, Vitamin D3, 5,000 unit tab Take 1 tablet by mouth once daily. blood sugar diagnostic (FREESTYLE LITE STRIPS) test strip Test blood sugar(s) 2 times daily. Dx: DM2 250.00. Insulin: No Cranberry Extract (CRANBERRY) 450 mg tab Take 1 tablet by mouth twice daily. Blood-Glucose Meter (FREESTYLE LITE METER) monitoring kit Test sugars 2 time daily and when needed. budesonide-formoterol (SYMBICORT) 160-4.5 mcg/actuation inhaler Inhale 2 Puffs as instructed twice daily. No current facility-administered medications for this visit. OBJECTIVE: BP 137/81 (BP Site: Right Arm, BP Position: Sitting, BP Cuff Size: Large Adult) Pulse 97 Resp 16 Wt 122.2 kg (269 lb 6.4 oz) BMI 39.9 kg/m2 Patient is alert, oriented times 3, no apparent distress, affect is bright, reactive. Last 5 Encounter Wt Readings: Date: Wt: 05/28/2017 122.2 kg (269 lb 6.4 oz) 05/14/2017 122 kg (269 lb) 03/27/2017 118.8 kg (262 lb) 01/30/2017 125.2 kg (276 lb) 01/24/2017 121.6 kg (268 lb) Last 5 Encounter BP Readings: Date: BP: 05/28/2017 137/81 05/14/2017 120/78 03/27/2017 130/80 01/30/2017 114/78 12/01/2016 110/70 ASSESSMENT AND PLAN Encounter Diagnosis ICD-10-CM 1. Obesity (BMI 30-39.9) E66.9 2. 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 See patient instructions. Will continue using [employer] to help her be mindful with her diet and exercise. Needs to keep working on diet and exercise with lifestyle changes for effective weight loss and control of DM as well as BP and lipids. Form completed to verify that patient is working on diet and exercise goals to meet criteria for Bariatric Surgery to be covered by [facility] for minimum number of months with me then the remainder of the months with her Bariatric Surgeon through [employer]. Form will be scanned into [employer]. Copies given to patient so may bring to her surgeon. Stoney Blue MD 05/28/2017 4:30 PM Addendum Nutrition Goal: Continue [employer] for monitoring diet. Calories 1655 calories Follow diet as recommended by bariatric infection control specialist (forms from them will be scanned into [employer]) Plate diet to be followed as well. Exercise Goal: Continue exercise as able given knee issues. Referring Provider: STONEY BLUE [[id number]] Allergies As of Date: 05/28/2017 Noted Allergy Reaction CIPROFLOXACIN 04/18/2011 14 - Other: See Comments Comments: Mother highly allergic to medication IMITREX (SUMATRIPTAN SUCCINATE) 04/18/2011 8 - GI Upset 11 - Vomiting NICKEL 05/14/2015 4 - Hives 7 - Swelling ADHESIVE 04/18/2011 2 - Rash 14 - Other: See Comments Comments: Pulling of skin ASPIRIN 04/18/2011 8 - GI Upset CORTICOSTEROIDS (GLUCOCORTICOIDS) 08/01/2014 14 - Other: See Comments Comments: Increase in blood sugars CYMBALTA (DULOXETINE) 11/28/2013 5 - Intolerance EFFEXOR (VENLAFAXINE) 08/23/2015 14 - Other: See Comments LIPITOR (ATORVASTATIN CALCIUM) 08/26/2014 4 - Hives NARCOTICS (OPIOIDS - MORPHINE JERRICA*11/02/2011 14 - Other: See Comments Comments: Mood changes/depression worsen/if taking must be monitored closley NIFEDIPINE 08/27/2013 14 - Other: See Comments Comments: Chest pain heart racing and skin flushing SULFA (SULFONAMIDE ANTIBIOTICS) 04/18/2011 14 - Other: See Comments Comments: headaches TOMATOES 01/26/2017 8 - GI Upset TOPAMAX (TOPIRAMATE) 11/28/2013 5 - Intolerance ULTRAM (TRAMADOL) 08/01/2014 12 - Shortness of Breath WHEAT, WHEAT GERM 01/26/2017 2 - Rash Date Reviewed: 05/14/2017 Reviewed by: Tierra Johnson Testing Specialist - Fully Assessed Reason for Visit: SMA-Previsit Assessment [[id number]] Primary Visit Diagnosis:Obesity (BMI 30-39.9) [E66.9] Other Visit Diagnosis: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 BENZONATATE 100 MG CAPSULE Take 2 capsules by mouth thre* VARICELLA VIRUS VACCINE LIVE * Give 1 dose then repeat dose * METHOCARBAMOL 500 MG TABLET Take 500 mg by mouth twice da* GLIMEPIRIDE 4 MG TABLET TAKE 1 TABLET BY MOUTH TWICE * DULAGLUTIDE 1.5 MG/0.5 ML SUB* Inject 1.5 mL subcutaneously * FLUVOXAMINE 25 MG TABLET Take 1 tablet by mouth daily * PANTOPRAZOLE 40 MG TABLET,DEL* Take 1 tablet by mouth daily * ENALAPRIL MALEATE 5 MG TABLET Take 1 tablet by mouth once d* METFORMIN ER 500 MG TABLET,EX* Take 2 tablets by mouth twice* MECLIZINE 12.5 MG TABLET 2 pills twice daily when was * OLOPATADINE 0.1 % EYE DROPS Use 1 Drop in both eyes twice* LEVALBUTEROL 0.63 MG/3 ML LUIS* Use 3 mL via nebulizer every * LORAZEPAM 1 MG TABLET Take 1 tablet by mouth twice * FLUCONAZOLE 150 MG TABLET Start after 2 week induction * COMPOUNDED PRESCRIPTION Biotin 15,000 once daily COMPOUNDED PRESCRIPTION [place] capsule 1 at bedtime BIOTIN ORAL Take by mouth. TIZANIDINE 2 MG TABLET Take 1 tablet by mouth every * CRESTOR 5 MG TABLET Take 1 tablet by mouth once d* CLOTRIMAZOLE-BETAMETHASONE 1 * Apply 1 application to affect* HYDROCODONE 5 MG-ACETAMINOPHE* Take 1 tablet by mouth every * MAGNESIUM MALATE MISC 1,250 mg twice daily. MAGNESIUM ORAL Take 1 capsule by mouth twice* ONDANSETRON 4 MG DISINTEGRATI* Take 1 tablet by mouth every * LEVONORGESTREL 20 MCG/24 HR (* Inserted in office TUDORZA PRESSAIR INHALATION Inhale as instructed. LANCETS Test blood sugar(s) 2 times d* XOPENEX INHALATION Use 1 Vial via nebulizer ever* CHOLECALCIFEROL (VITAMIN D3) * Take 1 tablet by mouth once d* BLOOD SUGAR DIAGNOSTIC STRIPS Test blood sugar(s) 2 times d* CRANBERRY FRUIT CONCENTRATE 4* Take 1 tablet by mouth twice * * BLOOD-GLUCOSE METER KIT Test sugars 2 time daily and * * BUDESONIDE-FORMOTEROL HFA 160* Inhale 2 Puffs as instructed * Problem List As Of Date 05/28/2017 Noted Resolved Diabetes mellitus type 2, uncontrolled (HCC) [E*INVALID FOR*09/03/2015 Hyperlipidemia [E78.5] INVALID FOR* Obesity, Class III, BMI 40-49.9 (morbid obesity*INVALID FOR*09/03/2015 Hypothyroid [E03.9] INVALID FOR*09/03/2015 Obstructive sleep apnea [G47.33] INVALID FOR*09/03/2015 Asthma, moderate persistent [J45.40] INVALID FOR*09/03/2015 Albuminuria [R80.9] INVALID FOR*09/03/2015 Vitamin D deficiency [E55.9] INVALID FOR* Faintness [R55] INVALID FOR*09/03/2015 Type 2 diabetes, controlled, with neuropathy (H*INVALID FOR*02/05/2015 PCOS (polycystic ovarian syndrome) [E28.2] INVALID FOR* More... Migraine headache without aura [G43.009] INVALID FOR*09/03/2015 More... Restless legs syndrome (RLS) [G25.81] INVALID FOR*09/03/2015 More... Right ankle instability [M25.371] INVALID FOR*09/03/2015 Left ankle instability [M25.372] INVALID FOR*09/03/2015 Type 2 diabetes mellitus with hyperglycemia (HC* More... Type 2 diabetes mellitus with neurological john* More... Type 2 diabetes mellitus with polyneuropathy (H* Hypoglycemia unawareness associated with type 2* Obesity [E66.9] 09/05/2016 Hypothyroid [E03.9] More... Ovarian cyst, left [N83.202] INVALID FOR* Multiple thyroid nodules [E04.2] INVALID FOR* Bilateral low back pain with sciatica [M54.40] INVALID FOR* Asymptomatic PVCs [I49.3] INVALID FOR* Morbid obesity with BMI of 40.0-44.9, adult (HC*INVALID FOR*05/14/2017 Statin intolerance [Z78.9] INVALID FOR* More... Hypogammaglobulinemia (HCC) [D80.1] INVALID FOR* Recurrent infections [B99.9] INVALID FOR* Allergic rhinitis [J30.9] INVALID FOR* Asthma, well controlled [J45.909] INVALID FOR* MEGHAN on CPAP [G47.33, Z99.89] INVALID FOR* Obesity (BMI 30-39.9) [E66.9] INVALID FOR* Other instructions from your clinician: Nutrition Goal: Continue [employer] for monitoring diet. Calories 1655 calories Follow diet as recommended by bariatric infection control specialist (forms from them will be scanned into [employer]) Plate diet to be followed as well. Exercise Goal: Continue exercise as able given knee issues. Follow-up and Disposition History Recorded Letter Text Department of Internal Medicine [facility] [phone] 05/28/2017 THIS IS A PRESCRIPTION FOR HANDICAPPED PARKING PERMIT Re: Mariana Early [address] [id number] The above named person requires a disability parking placard. DURATION: LIFETIME EXPIRATION: RENEW EVERY 5 YEARS Sincerely, Stoney Blue MD Encounter Status:Closed by STONEY BLUE MD on 06/04/17 XR CHEST PA AND Observed: 05/24/2017 Status: F Source: [employer] LATERAL 5:33 PM SYSTEM ([place]) REPOSITORY PROCEDURE: FRONTAL AND LATERAL CHEST RADIOGRAPHS, 05/24/2017 5:33 PM CLINICAL HISTORY: 1.5 cm nodular density involving the right lung base on prior two-view chest radiograph. TECHNIQUE: 2 views, 2 images. COMPARISON: Two-view chest radiograph 04/27/2017 RESULT: Cardiac silhouette and pulmonary vascularity are within normal limits. Lungs are symmetrically inflated and clear. Although nipple markers were not utilized on this exam, previously seen 1.5 cm nodular opacity overlying the right lung base on the prior exam is not redemonstrated on this study and this finding was most compatible with nipple shadow. There is no pleural effusion or pneumothorax. Osseous structures are intact. IMPRESSION: No acute cardiopulmonary process. Previously seen 1.5 cm nodular opacity overlying the right lung base on prior two-view chest radiograph from 04/27/2017 is not redemonstrated on this examination, compatible with nipple shadow. PROGRESS Observed: 05/14/2017 Status: COMPLETED Source: [place] 10:07 AM [facility] [place] REPOSITORY HNO ID: [id number] Author: Stoney Blue Service: (none) Author Type: Physician Type: Progress Notes Filed: 05/14/2017 8:01 PM Note Text: Patient presents with: Weight Problem: Bariatric SUBJECTIVE: Mariana Early is a 36 year old year old lady here today for follow up appointment for review of medical conditions. Noted that plans to go through [facility] for bariatric surgery. States that needs letter to Dr. Panda (bariatric surgeon) RE: medical conditions in order to be able to get [facility] to approve bariatric surgery. Was told that needs appointment with PCP for weight loss and nutrition discussion. Planning on gastric sleeve. Has arthritis worse in hips because of weight. Has paperwork from Dr. Panda for what is needed. Reviewed that had gained weight on plan through clasp machine operator at [facility]. Calories adjusted; protein adjusted. Labs negative for Cushings as well as Dickson's.. Exercise--resistance exercises. Plans to start PT through [facility] [employer]. Was told needs orders from within [facility]. Needs OT/PT for wrists and feet and ankles as well as neck. Recommended US, etc. Was told that [facility] needed specific recommendations. Gets botox for neck spasms/migraines. PAST MEDICAL HISTORY Diagnosis Date - Asthma Dr. Victorino Trevizo ([facility]) - Dystonia - Elevated LFTs - Fibromyalgia - Hyperlipidemia - Hypoglycemia unawareness associated with type 2 diabetes mellitus (HCC) - Hypothyroid - Migraine headache with aura Not always with aura; treated with Botox Injections by Dr. Ellis - Obesity - Obstructive sleep apnea treated with BiPAP Sleep Medicine Doctor--Dr. Lovett - Occipital neuralgia Dr. 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 benzonatate (TESSALON PERLE) 100 mg capsule Take 2 capsules by mouth three times daily as needed. varicella virus vaccine, PF, (VARIVAX) 1,350 unit/0.5 mL injection Give 1 dose then repeat dose in 4 to 8 weeks later methocarbamol (ROBAXIN) 500 mg tablet Take 500 mg by mouth twice daily. split in half as needed for back spasms glimepiride (AMARYL) 4 mg tablet TAKE 1 TABLET BY MOUTH TWICE DAILY. dulaglutide (TRULICITY) 1.5 mg/0.5 mL pnij Inject 1.5 mL subcutaneously once each week. fluvoxaMINE Maleate (LUVOX) 25 mg tablet Take 1 tablet by mouth daily at bedtime. pantoprazole DR (PROTONIX) 40 mg tablet Take 1 tablet by mouth daily before breakfast. Take on empty stomach, 1/2 hr before meal. TAKING NEEDED NOW enalapril (VASOTEC) 5 mg tablet Take 1 tablet by mouth once daily. metFORMIN ER (GLUCOPHAGE XR) 500 mg 24 hr tablet Take 2 tablets by mouth twice daily. meclizine (ANTIVERT) 12.5 mg tab 2 pills twice daily when was flared up and down to 1 pill twice daily as tapers off by end of August(Dr. Lyon--ENT) olopatadine (PATANOL) 0.1 % ophthalmic solution Use 1 Drop in both eyes twice daily. 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 LORazepam (ATIVAN) 1 mg tablet Take 1 tablet by mouth twice daily as needed for Anxiety. ([facility]seling [facility] provider) fluconazole (DIFLUCAN) 150 mg tablet Start after 2 week induction therapy with 100 mg dose--take 150 mg once weekly. COMPOUNDED PRESCRIPTION Biotin 15,000 once daily COMPOUNDED PRESCRIPTION [place] capsule 1 at bedtime BIOTIN ORAL Take by mouth. tiZANidine (ZANAFLEX) 2 mg tablet Take 1 tablet by mouth every 6 hours as needed. CRESTOR 5 mg tablet Take 1 tablet by mouth once daily. clotrimazole-betamethasone (LOTRISONE) cream Apply 1 application to affected area twice daily. HYDROcodone-acetaminophen (NORCO) 5-325 mg per tablet Take 1 tablet by mouth every 8 hours as needed. MAGNESIUM MALATE MISC 1,250 mg twice daily. MAGNESIUM ORAL Take 1 capsule by mouth twice daily. ondansetron orally disintegrating (ZOFRAN ODT) 4 mg disintegrating tablet Take 1 tablet by mouth every 8 hours as needed for Nausea/Vomiting. levonorgestrel (MIRENA) 20 mcg/24 hr (5 years) IUD Inserted in office ACLIDINIUM BROMIDE (TUDORZA PRESSAIR INHALATION) Inhale as instructed. Lancets (FREESTYLE LANCETS) lancets Test blood sugar(s) 2 times daily. Dx: DM2 250.00. Insulin: No LEVALBUTEROL HCL (XOPENEX INHALATION) Use 1 Vial via nebulizer every 6 hours as needed. Cholecalciferol, Vitamin D3, 5,000 unit tab Take 1 tablet by mouth once daily. blood sugar diagnostic (FREESTYLE LITE STRIPS) test strip Test blood sugar(s) 2 times daily. Dx: DM2 250.00. Insulin: No Cranberry Extract (CRANBERRY) 450 mg tab Take 1 tablet by mouth twice daily. Blood-Glucose Meter (FREESTYLE LITE METER) monitoring kit Test sugars 2 time daily and when needed. budesonide-formoterol (SYMBICORT) 160-4.5 mcg/actuation inhaler Inhale 2 Puffs as instructed twice daily. No current facility-administered medications for this visit. OBJECTIVE: BP 120/78 Pulse 76 Resp 14 Wt 122 kg (269 lb) BMI 39.84 kg/m2 Patient is obese; alert, oriented times 3, no apparent distress, affect is bright, reactive. Last 5 Encounter BP Readings: Date: BP: 05/14/2017 120/78 03/27/2017 130/80 01/30/2017 114/78 12/01/2016 110/70 09/05/2016 128/79 Last 5 Encounter Wt Readings: Date: Wt: 05/14/2017 122 kg (269 lb) 03/27/2017 118.8 kg (262 lb) 01/30/2017 125.2 kg (276 lb) 01/24/2017 121.6 kg (268 lb) 12/01/2016 123.8 kg (273 lb) Heart: Regular rate, rhythm, no murmurs, gallops, rubs. Lungs: Clear to auscultation, bilaterally, breathing non labored. Ext: No cyanosis, clubbing, or edema. Component Latest Ref Rng AND Units 03/20/2017 WBC 3.70 - 11.00 k/uL 10.83 RBC 3.90 - 5.20 m/uL 4.82 Hemoglobin 11.5 - 15.5 g/dL 13.2 Hematocrit 36.0 - 46.0 % 43.0 MCV 80.0 - 100.0 fL 89.2 MCH 26.0 - 34.0 pG 27.4 MCHC 30.5 - 36.0 g/dL 30.7 RDW-CV 11.5 - 15.0 % 13.3 Platelet Count 150 - 400 k/uL 399 MPV 9.0 - 12.7 fL 9.7 Neut% % 52.3 Abs Neut (ANC) 1.45 - 7.50 k/uL 5.66 Lymph% % 38.7 Abs Lymph 1.00 - 4.00 k/uL 4.19 (H) [place]% % 5.5 Abs [place] <0.87 k/uL 0.60 Eosin% % 3.0 Abs Eosin <0.46 k/uL 0.33 Baso% % 0.5 Abs Baso <0.11 k/uL 0.05 Nucleated Reds 0 /100 WBC 0.0 Absolute nRBC <0.01 k/uL <0.01 Diff Type Auto Diff Protein, Total 6.3 - 8.0 g/dL 7.4 Albumin 3.9 - 4.9 g/dL 4.3 Calcium 8.5 - 10.2 mg/dL 9.2 Bilirubin, Total 0.2 - 1.3 mg/dL 0.3 Alkaline Phosphatase 32 - 117 U/L 46 AST 13 - 35 U/L 32 Glucose 74 - 99 mg/dL 87 BUN 7 - 21 mg/dL 10 Creatinine 0.58 - 0.96 mg/dL 0.61 Sodium 136 - 144 mmol/L 141 Potassium 3.7 - 5.1 mmol/L 3.8 Chloride 97 - 105 mmol/L 100 CO2 22 - 30 mmol/L 25 Anion Gap 9 - 18 mmol/L 16 ALT 7 - 38 U/L 51 (H) eGFR- >60 eGFR-All Other Races . >60 Cholesterol, Total <200 mg/dL 195 Triglyceride <150 mg/dL 211 (H) HDL Cholesterol >39 mg/dL 36 (L) LDL Cholesterol <100 mg/dL 117 (H) Non HDL Cholesterol <130 mg/dL 159 (H) Fasting Time hrs Unknown VLDL Cholesterol <30 mg/dL 42 (H) TC:HDL Ratio <5.10 5.42 (H) LDL:HDL Ratio <2.54 3.25 (H) Creatinine, Ur Random (UCRR) 20 - 300 mg/dL 194.7 Albumin, Urine Random 0.0 - 23.0 mg/L 86.8 (H) Albumin/Creat Ratio 0 - 30 mg/g 45 (H) Hemoglobin A1C 4.3 - 5.6 % 7.5 (H) Estimated Average Glucose mg/dL 169 Androstenedione 0.3 - 3.3 ng/mL 1.3 DHEA-S 98.8 - 340.0 ug/dL 138.7 FSH mU/mL 6.4 Free T4 0.9 - 1.7 ng/dL 1.5 LH mU/mL 12.2 Microsomal Antibody <5.6 IU/mL <1.0 Testosterone <40 ng/dL 24 TSH 0.400 - 5.500 uU/mL 2.310 ASSESSMENT AND PLAN: Encounter Diagnosis ICD-10-CM 1. Obesity (BMI 30-39.9) E66.9 2. 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 Fatty infiltration of liver K76.0 4. Mixed hyperlipidemia E78.2 5. Statin intolerance Z78.9 6. Bilateral low back pain with sciatica, sciatica laterality unspecified, unspecified chronicity M54.40 Above issues addressed with patient. Patient involved in shared decision making for management of her medical issues. History and medications reviewed. Epic updated as needed Refills taken care of and meds adjusted as indicated after reviewed history, exam and labs. Health Maintenance reviewed. Updated record and/or ordered tests as recorded. Encouraged on efforts at healthy diet and regular exercise and adequate sleep. Discussed with patient desired to pursue aortic surgery with gastric sleeve to help with her efforts at weight loss. Is working with a surgeon at [facility]. Patient on care source. We'll obtain the requirements in order for her to qualify for bariatric surgery to make sure criteria are met. Discussed with patient that most patients have gone to [facility] where they have their protocol so in the past, all and needed to do was send a letter to [facility] stating that the patient would benefit medically from bariatric surgery.plus file consult order for bariatric surgery with a covered provider. Patient states she also form from the surgeon to explain what she would require from the patient. At this time it appears that she needs at least 3-4 monthly appointments with her primary care physician to document that she has been participating with following physician ordered weight loss program with nutrition and exercise. We'll make at least the first 2 appointments after they with my shared medical primary for weight loss with my clasp machine operator. Reassured her that the appointment is with me in that I am the primary caregiver and that should medical appointment and the clasp machine operator is simply the direct support professional home health. Note that she has been to the clasp machine operator at the hospital but despite adjustments in calorie intake, and adjustments in protein intake as well as carb intake, she still gained weight for most of the time she was on the program. At one point she did lose a lot of weight. She does continue efforts at limiting calories as well as limiting carbohydrates and getting protein. She does not like meat so most of her protein needs to come from plant-based sources. Does like humus and vegetables, for example. Discussed with the patient that it will be very important that she makes lifestyle changes with her diet and exercise in order to lose weight and keep it off even after having the gastric sleeve surgery. She does know of people who've had even the bypass surgery and still had problems with not losing weight. Note that one issue is that she states that she was told out of control sugars is to be a criteria to qualify for [facility] to cover for bariatric surgery, but that would be counter to goals of improved glycemic control prior to having the actual surgery done in order to decrease risk of complications, such as infection. Also, goal of participating in physician led or clasp machine operator led weight loss program would be to show that she is able to stick to a healthy diet and regular exercise plan in order to lose weight in order to show she has higher likelihood of success after bariatric surgery. The majority of the visit was spent counseling and/or coordinating care for the patient. [id number] time was at least 25 minutes. Stoney Blue MD CNOV Observed: 05/14/2017 Status: COMPLETED Source: [place] 9:40 AM [facility] REPOSITORY Office Visit (INTMWS) MARIANA EARLY ([id number]) 1980 F Date Time Provider Department 05/14/17 9:40 AM STONEY BLUE INTMWS During your visit today, we recorded the following information about you: Pulse Respiration Blood pressure Weight 76/minute 14/minute 120/78 122 kg Stoney Blue MD 05/14/2017 8:01 PM Signed Patient presents with: Weight Problem: Bariatric SUBJECTIVE: Mariana Domingolliams is a 36 year old year old lady here today for follow up appointment for review of medical conditions. Noted that plans to go through [facility] for bariatric surgery. States that needs letter to Dr. Panda (bariatric surgeon) RE: medical conditions in order to be able to get [employer] to approve bariatric surgery. Was told that needs appointment with PCP for weight loss and nutrition discussion. Planning on gastric sleeve. Has arthritis worse in hips because of weight. Has paperwork from Dr. Panda for what is needed. Reviewed that had gained weight on plan through clasp machine operator at [facility]. Calories adjusted; protein adjusted. Labs negative for Cushings as well as Aiden's.. Exercise--resistance exercises. Plans to start PT through [facility]. Was told needs orders from within [facility]. Needs OT/PT for wrists and feet and ankles as well as neck. Recommended US, etc. Was told that [facility] needed specific recommendations. Gets botox for neck spasms/migraines. PAST MEDICAL HISTORY Diagnosis Date - Asthma Dr. Victorino Trevizo ([facility]) - Dystonia - Elevated LFTs - Fibromyalgia - Hyperlipidemia - Hypoglycemia unawareness associated with type 2 diabetes mellitus (HCC) - Hypothyroid - Migraine headache with aura Not always with aura; treated with Botox Injections by Dr. Ellis - Obesity - Obstructive sleep apnea treated with BiPAP Sleep Medicine Doctor--Dr. Lovett - Occipital neuralgia Dr. 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 benzonatate (TESSALON PERLE) 100 mg capsule Take 2 capsules by mouth three times daily as needed. varicella virus vaccine, PF, (VARIVAX) 1,350 unit/0.5 mL injection Give 1 dose then repeat dose in 4 to 8 weeks later methocarbamol (ROBAXIN) 500 mg tablet Take 500 mg by mouth twice daily. split in half as needed for back spasms glimepiride (AMARYL) 4 mg tablet TAKE 1 TABLET BY MOUTH TWICE DAILY. dulaglutide (TRULICITY) 1.5 mg/0.5 mL pnij Inject 1.5 mL subcutaneously once each week. fluvoxaMINE Maleate (LUVOX) 25 mg tablet Take 1 tablet by mouth daily at bedtime. pantoprazole DR (PROTONIX) 40 mg tablet Take 1 tablet by mouth daily before breakfast. Take on empty stomach, 1/2 hr before meal. TAKING NEEDED NOW enalapril (VASOTEC) 5 mg tablet Take 1 tablet by mouth once daily. metFORMIN ER (GLUCOPHAGE XR) 500 mg 24 hr tablet Take 2 tablets by mouth twice daily. meclizine (ANTIVERT) 12.5 mg tab 2 pills twice daily when was flared up and down to 1 pill twice daily as tapers off by end august(Dr. Lyon--ENT) olopatadine (PATANOL) 0.1 % ophthalmic solution Use 1 Drop in both eyes twice daily. 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 LORazepam (ATIVAN) 1 mg tablet Take 1 tablet by mouth twice daily as needed for Anxiety. ([facility] provider) fluconazole (DIFLUCAN) 150 mg tablet Start after 2 week induction therapy with 100 mg dose--take 150 mg once weekly. COMPOUNDED PRESCRIPTION Biotin 15,000 once daily COMPOUNDED PRESCRIPTION [place] capsule 1 at bedtime BIOTIN ORAL Take by mouth. tiZANidine (ZANAFLEX) 2 mg tablet Take 1 tablet by mouth every 6 hours as needed. CRESTOR 5 mg tablet Take 1 tablet by mouth once daily. clotrimazole-betamethasone (LOTRISONE) cream Apply 1 application to affected area twice daily. HYDROcodone-acetaminophen (NORCO) 5-325 mg per tablet Take 1 tablet by mouth every 8 hours as needed. MAGNESIUM MALATE MISC 1,250 mg twice daily. MAGNESIUM ORAL Take 1 capsule by mouth twice daily. ondansetron orally disintegrating (ZOFRAN ODT) 4 mg disintegrating tablet Take 1 tablet by mouth every 8 hours as needed for Nausea/Vomiting. levonorgestrel (MIRENA) 20 mcg/24 hr (5 years) IUD Inserted in office ACLIDINIUM BROMIDE (TUDORZA PRESSAIR INHALATION) Inhale as instructed. Lancets (FREESTYLE LANCETS) lancets Test blood sugar(s) 2 times daily. Dx: DM2 250.00. Insulin: No LEVALBUTEROL HCL (XOPENEX INHALATION) Use 1 Vial via nebulizer every 6 hours as needed. Cholecalciferol, Vitamin D3, 5,000 unit tab Take 1 tablet by mouth once daily. blood sugar diagnostic (FREESTYLE LITE STRIPS) test strip Test blood sugar(s) 2 times daily. Dx: DM2 250.00. Insulin: No Cranberry Extract (CRANBERRY) 450 mg tab Take 1 tablet by mouth twice daily. Blood-Glucose Meter (FREESTYLE LITE METER) monitoring kit Test sugars 2 time daily and when needed. budesonide-formoterol (SYMBICORT) 160-4.5 mcg/actuation inhaler Inhale 2 Puffs as instructed twice daily. No current facility-administered medications for this visit. OBJECTIVE: BP 120/78 Pulse 76 Resp 14 Wt 122 kg (269 lb) BMI 39.84 kg/m2 Patient is obese; alert, oriented times 3, no apparent distress, affect is bright, reactive. Last 5 Encounter BP Readings: Date: BP: 05/14/2017 120/78 03/27/2017 130/80 01/30/2017 114/78 12/01/2016 110/70 09/05/2016 128/79 Last 5 Encounter Wt Readings: Date: Wt: 05/14/2017 122 kg (269 lb) 03/27/2017 118.8 kg (262 lb) 01/30/2017 125.2 kg (276 lb) 01/24/2017 121.6 kg (268 lb) 12/01/2016 123.8 kg (273 lb) Heart: Regular rate, rhythm, no murmurs, gallops, rubs. Lungs: Clear to auscultation, bilaterally, breathing non labored. Ext: No cyanosis, clubbing, or edema. Component Latest Ref Rng ANDamp; Units 03/20/2017 WBC 3.70 - 11.00 k/uL 10.83 RBC 3.90 - 5.20 m/uL 4.82 Hemoglobin 11.5 - 15.5 g/dL 13.2 Hematocrit 36.0 - 46.0 % 43.0 MCV 80.0 - 100.0 fL 89.2 MCH 26.0 - 34.0 pG 27.4 MCHC 30.5 - 36.0 g/dL 30.7 RDW-CV 11.5 - 15.0 % 13.3 Platelet Count 150 - 400 k/uL 399 MPV 9.0 - 12.7 fL 9.7 Neut% % 52.3 Abs Neut (ANC) 1.45 - 7.50 k/uL 5.66 Lymph% % 38.7 Abs Lymph 1.00 - 4.00 k/uL 4.19 (H) [place]% % 5.5 Abs [place] ANDlt;0.87 k/uL 0.60 Eosin% % 3.0 Abs Eosin ANDlt;0.46 k/uL 0.33 Baso% % 0.5 Abs Baso ANDlt;0.11 k/uL 0.05 Nucleated Reds 0 /100 WBC 0.0 Absolute nRBC ANDlt;0.01 k/uL ANDlt;0.01 Diff Type Auto Diff Protein, Total 6.3 - 8.0 g/dL 7.4 Albumin 3.9 - 4.9 g/dL 4.3 Calcium 8.5 - 10.2 mg/dL 9.2 Bilirubin, Total 0.2 - 1.3 mg/dL 0.3 Alkaline Phosphatase 32 - 117 U/L 46 AST 13 - 35 U/L 32 Glucose 74 - 99 mg/dL 87 BUN 7 - 21 mg/dL 10 Creatinine 0.58 - 0.96 mg/dL 0.61 Sodium 136 - 144 mmol/L 141 Potassium 3.7 - 5.1 mmol/L 3.8 Chloride 97 - 105 mmol/L 100 CO2 22 - 30 mmol/L 25 Anion Gap 9 - 18 mmol/L 16 ALT 7 - 38 U/L 51 (H) eGFR- ANDgt;60 eGFR-All Other Races . ANDgt;60 Cholesterol, Total ANDlt;200 mg/dL 195 Triglyceride ANDlt;150 mg/dL 211 (H) HDL Cholesterol ANDgt;39 mg/dL 36 (L) LDL Cholesterol ANDlt;100 mg/dL 117 (H) Non HDL Cholesterol ANDlt;130 mg/dL 159 (H) Fasting Time hrs Unknown VLDL Cholesterol ANDlt;30 mg/dL 42 (H) TC:HDL Ratio ANDlt;5.10 5.42 (H) LDL:HDL Ratio ANDlt;2.54 3.25 (H) Creatinine, Ur Random (UCRR) 20 - 300 mg/dL 194.7 Albumin, Urine Random 0.0 - 23.0 mg/L 86.8 (H) Albumin/Creat Ratio 0 - 30 mg/g 45 (H) Hemoglobin A1C 4.3 - 5.6 % 7.5 (H) Estimated Average Glucose mg/dL 169 Androstenedione 0.3 - 3.3 ng/mL 1.3 DHEA-S 98.8 - 340.0 ug/dL 138.7 FSH mU/mL 6.4 Free T4 0.9 - 1.7 ng/dL 1.5 LH mU/mL 12.2 Microsomal Antibody ANDlt;5.6 IU/mL ANDlt;1.0 Testosterone ANDlt;40 ng/dL 24 TSH 0.400 - 5.500 uU/mL 2.310 ASSESSMENT AND PLAN: Encounter Diagnosis ICD-10-CM 1. Obesity (BMI 30-39.9) E66.9 2. 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 Fatty infiltration of liver K76.0 4. Mixed hyperlipidemia E78.2 5. Statin intolerance Z78.9 6. Bilateral low back pain with sciatica, sciatica laterality unspecified, unspecified chronicity M54.40 Above issues addressed with patient. Patient involved in shared decision making for management of her medical issues. History and medications reviewed. Epic updated as needed Refills taken care of and meds adjusted as indicated after reviewed history, exam and labs. Health Maintenance reviewed. Updated record and/or ordered tests as recorded. Encouraged on efforts at healthy diet and regular exercise and adequate sleep. Discussed with patient desired to pursue aortic surgery with gastric sleeve to help with her efforts at weight loss. Is working with a surgeon at [facility]. Patient on care source. We'll obtain the requirements in order for her to qualify for bariatric surgery to make sure criteria are met. Discussed with patient that most patients have gone to [facility] where they have their protocol so in the past, all and needed to do was send a letter to [facility] stating that the patient would benefit medically from bariatric surgery.plus file consult order for bariatric surgery with a covered provider. Patient states she also form from the surgeon to explain what she would require from the patient. At this time it appears that she needs at least 3-4 monthly appointments with her primary care physician to document that she has been participating with following physician ordered weight loss program with nutrition and exercise. We'll make at least the first 2 appointments after they with my shared medical primary for weight loss with my clasp machine operator. Reassured her that the appointment is with me in that I am the primary caregiver and that should medical appointment and the clasp machine operator is simply the direct support professional home health. Note that she has been to the clasp machine operator at the hospital but despite adjustments in calorie intake, and adjustments in protein intake as well as carb intake, she still gained weight for most of the time she was on the program. At one point she did lose a lot of weight. She does continue efforts at limiting calories as well as limiting carbohydrates and getting protein. She does not like meat so most of her protein needs to come from plant-based sources. Does like humus and vegetables, for example. Discussed with the patient that it will be very important that she makes lifestyle changes with her diet and exercise in order to lose weight and keep it off even after having the gastric sleeve surgery. She does know of people who've had even the bypass surgery and still had problems with not losing weight. Note that one issue is that she states that she was told out of control sugars is to be a criteria to qualify for [employer] to cover for bariatric surgery, but that would be counter to goals of improved glycemic control prior to having the actual surgery done in order to decrease risk of complications, such as infection. Also, goal of participating in physician led or clasp machine operator led weight loss program would be to show that she is able to stick to a healthy diet and regular exercise plan in order to lose weight in order to show she has higher likelihood of success after bariatric surgery. The majority of the visit was spent counseling and/or coordinating care for the patient. [id number] time was at least 25 minutes. Stoney Blue MD Referring Provider: STONEY BLUE [[id number]] Allergies As of Date: 05/14/2017 Noted Allergy Reaction CIPROFLOXACIN 04/18/2011 14 - Other: See Comments Comments: Mother highly allergic to medication IMITREX (SUMATRIPTAN SUCCINATE) 04/18/2011 8 - GI Upset 11 - Vomiting NICKEL 05/14/2015 4 - Hives 7 - Swelling ADHESIVE 04/18/2011 2 - Rash 14 - Other: See Comments Comments: Pulling of skin ASPIRIN 04/18/2011 8 - GI Upset CORTICOSTEROIDS (GLUCOCORTICOIDS) 08/01/2014 14 - Other: See Comments Comments: Increase in blood sugars CYMBALTA (DULOXETINE) 11/28/2013 5 - Intolerance EFFEXOR (VENLAFAXINE) 08/23/2015 14 - Other: See Comments LIPITOR (ATORVASTATIN CALCIUM) 08/26/2014 4 - Hives NARCOTICS (OPIOIDS - MORPHINE JERRICA*11/02/2011 14 - Other: See Comments Comments: Mood changes/depression worsen/if taking must be monitored closley NIFEDIPINE 08/27/2013 14 - Other: See Comments Comments: Chest pain heart racing and skin flushing SULFA (SULFONAMIDE ANTIBIOTICS) 04/18/2011 14 - Other: See Comments Comments: headaches TOMATOES 01/26/2017 8 - GI Upset TOPAMAX (TOPIRAMATE) 11/28/2013 5 - Intolerance ULTRAM (TRAMADOL) 08/01/2014 12 - Shortness of Breath WHEAT, WHEAT GERM 01/26/2017 2 - Rash Date Reviewed: 05/14/2017 Reviewed by: Tierra Johnson Testing Specialist - Fully Assessed Reason for Visit: Weight Problem [121] Cmt: Bariatric Reason For Visit History Recorded Primary Visit Diagnosis:Obesity (BMI 30-39.9) [E66.9] Other Visit Diagnoses: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 BENZONATATE 100 MG CAPSULE Take 2 capsules by mouth thre* VARICELLA VIRUS VACCINE LIVE * Give 1 dose then repeat dose * METHOCARBAMOL 500 MG TABLET Take 500 mg by mouth twice da* GLIMEPIRIDE 4 MG TABLET TAKE 1 TABLET BY MOUTH TWICE * DULAGLUTIDE 1.5 MG/0.5 ML SUB* Inject 1.5 mL subcutaneously * FLUVOXAMINE 25 MG TABLET Take 1 tablet by mouth daily * PANTOPRAZOLE 40 MG TABLET,DEL* Take 1 tablet by mouth daily * ENALAPRIL MALEATE 5 MG TABLET Take 1 tablet by mouth once d* METFORMIN ER 500 MG TABLET,EX* Take 2 tablets by mouth twice* MECLIZINE 12.5 MG TABLET 2 pills twice daily when was * OLOPATADINE 0.1 % EYE DROPS Use 1 Drop in both eyes twice* LEVALBUTEROL 0.63 MG/3 ML LUIS* Use 3 mL via nebulizer every * LORAZEPAM 1 MG TABLET Take 1 tablet by mouth twice * FLUCONAZOLE 150 MG TABLET Start after 2 week induction * COMPOUNDED PRESCRIPTION Biotin 15,000 once daily COMPOUNDED PRESCRIPTION [place] capsule 1 at bedtime BIOTIN ORAL Take by mouth. TIZANIDINE 2 MG TABLET Take 1 tablet by mouth every * CRESTOR 5 MG TABLET Take 1 tablet by mouth once d* CLOTRIMAZOLE-BETAMETHASONE 1 * Apply 1 application to affect* HYDROCODONE 5 MG-ACETAMINOPHE* Take 1 tablet by mouth every * MAGNESIUM MALATE MISC 1,250 mg twice daily. MAGNESIUM ORAL Take 1 capsule by mouth twice* ONDANSETRON 4 MG DISINTEGRATI* Take 1 tablet by mouth every * LEVONORGESTREL 20 MCG/24 HR (* Inserted in office TUDORZA PRESSAIR INHALATION Inhale as instructed. LANCETS Test blood sugar(s) 2 times d* XOPENEX INHALATION Use 1 Vial via nebulizer ever* CHOLECALCIFEROL (VITAMIN D3) * Take 1 tablet by mouth once d* BLOOD SUGAR DIAGNOSTIC STRIPS Test blood sugar(s) 2 times d* CRANBERRY FRUIT CONCENTRATE 4* Take 1 tablet by mouth twice * * BLOOD-GLUCOSE METER KIT Test sugars 2 time daily and * * BUDESONIDE-FORMOTEROL HFA 160* Inhale 2 Puffs as instructed * Problem List As Of Date 05/14/2017 Noted Resolved Diabetes mellitus type 2, uncontrolled (HCC) [E*INVALID FOR*09/03/2015 Hyperlipidemia [E78.5] INVALID FOR* Obesity, Class III, BMI 40-49.9 (morbid obesity*INVALID FOR*09/03/2015 Hypothyroid [E03.9] INVALID FOR*09/03/2015 Obstructive sleep apnea [G47.33] INVALID FOR*09/03/2015 Asthma, moderate persistent [J45.40] INVALID FOR*09/03/2015 Albuminuria [R80.9] INVALID FOR*09/03/2015 Vitamin D deficiency [E55.9] INVALID FOR* Faintness [R55] INVALID FOR*09/03/2015 Type 2 diabetes, controlled, with neuropathy (H*INVALID FOR*02/05/2015 PCOS (polycystic ovarian syndrome) [E28.2] INVALID FOR* More... Migraine headache without aura [G43.009] INVALID FOR*09/03/2015 More... Restless legs syndrome (RLS) [G25.81] INVALID FOR*09/03/2015 More... Right ankle instability [M25.371] INVALID FOR*09/03/2015 Left ankle instability [M25.372] INVALID FOR*09/03/2015 Type 2 diabetes mellitus with hyperglycemia (HC* More... Type 2 diabetes mellitus with neurological john* More... Type 2 diabetes mellitus with polyneuropathy (H* Hypoglycemia unawareness associated with type 2* Obesity [E66.9] 09/05/2016 Hypothyroid [E03.9] More... Ovarian cyst, left [N83.202] INVALID FOR* Multiple thyroid nodules [E04.2] INVALID FOR* Bilateral low back pain with sciatica [M54.40] INVALID FOR* Asymptomatic PVCs [I49.3] INVALID FOR* Morbid obesity with BMI of 40.0-44.9, adult (HC*INVALID FOR*05/14/2017 Statin intolerance [Z78.9] INVALID FOR* More... Hypogammaglobulinemia (HCC) [D80.1] INVALID FOR* Recurrent infections [B99.9] INVALID FOR* Allergic rhinitis [J30.9] INVALID FOR* Asthma, well controlled [J45.909] INVALID FOR* MEGHAN on CPAP [G47.33, Z99.89] INVALID FOR* Obesity (BMI 30-39.9) [E66.9] INVALID FOR* Disposition: Return for [facility]. Follow-up and Disposition History Recorded Encounter Status:Closed by STONEY BLUE MD on 05/14/17 XR CHEST PA AND Observed: 04/27/2017 Status: F Source: [employer] [facility] 4:32 PM SYSTEM ([place]) REPOSITORY EXAM: Chest x-ray. CLINICAL STATEMENT: Preop, asthma. COMPARISON: None.. TECHNIQUE: Erect PA and lateral views were obtained of the chest. FINDINGS: Heart size within normal limits. There is no mediastinal widening. 1.5 cm nodular density present right lung base. Mild pleural pericardial adhesion or atelectasis present left medial lung base. Lung rankin are otherwise clear. IMPRESSION: 1. 1.5 cm nodular density right lung base. This is likely a nipple shadow, however suggest repeat PA chest with nipple marker to confirm. 2. Mild pleural pericardial effusion or atelectasis left lung base. PROGRESS Observed: 04/18/2017 Status: COMPLETED Source: [place] 3:18 PM [facility] [place] REPOSITORY HNO ID: [id number] Author: Aliyah Goss Service: (none) Author Type: Physician Type: Progress Notes Filed: 04/18/2017 4:16 PM Note Text: Follow up podiatric office visit for: Chief Complaint: This 36 year old who presents for follow up:b/l ankle instability. Patient currently wearing braces and this seems to be helping patient. She has a system engineer who treats her for osteoarthritis. She feels she has arthritis in ankle and the braces are helping this as well. She has had physical therapy ordered but she has yet to pursue. Overall, patient feels that she is significantly improved when using the braces. PAIN EVALUATION No data found. Hemoglobin A1C Date Value Ref Range Status 03/20/2017 7.5 (H) 4.3 - 5.6 % Final PCP: Stoney Blue MD PAST MEDICAL HISTORY Diagnosis Date - Asthma Dr. Victorino Trevizo ([facility]) - Dystonia - Elevated LFTs - Fibromyalgia - Hyperlipidemia - Hypoglycemia unawareness associated with type 2 diabetes mellitus (HCC) - Hypothyroid - Migraine headache with aura Not always with aura; treated with Botox Injections by Dr. Ellis - Obesity - Obstructive sleep apnea treated with BiPAP Sleep Medicine Doctor--Dr. Lovett - Occipital neuralgia Dr. 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 benzonatate (TESSALON PERLE) 100 mg capsule Take 2 capsules by mouth three times daily as needed. varicella virus vaccine, PF, (VARIVAX) 1,350 unit/0.5 mL injection Give 1 dose then repeat dose in 4 to 8 weeks later methocarbamol (ROBAXIN) 500 mg tablet Take 500 mg by mouth twice daily. split in half as needed for back spasms glimepiride (AMARYL) 4 mg tablet TAKE 1 TABLET BY MOUTH TWICE DAILY. dulaglutide (TRULICITY) 1.5 mg/0.5 mL pnij Inject 1.5 mL subcutaneously once each week. fluvoxaMINE Maleate (LUVOX) 25 mg tablet Take 1 tablet by mouth daily at bedtime. pantoprazole DR (PROTONIX) 40 mg tablet Take 1 tablet by mouth daily before breakfast. Take on empty stomach, 1/2 hr before meal. TAKING NEEDED NOW enalapril (VASOTEC) 5 mg tablet Take 1 tablet by mouth once daily. metFORMIN ER (GLUCOPHAGE XR) 500 mg 24 hr tablet Take 2 tablets by mouth twice daily. meclizine (ANTIVERT) 12.5 mg tab 2 pills twice daily when was flared up and down to 1 pill twice daily as tapers off by end of August(Dr. Lyon--ENT) olopatadine (PATANOL) 0.1 % ophthalmic solution Use 1 Drop in both eyes twice daily. 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 LORazepam (ATIVAN) 1 mg tablet Take 1 tablet by mouth twice daily as needed for Anxiety. ([facility]seling [facility] provider) fluconazole (DIFLUCAN) 150 mg tablet Start after 2 week induction therapy with 100 mg dose--take 150 mg once weekly. COMPOUNDED PRESCRIPTION Biotin 15,000 once daily COMPOUNDED PRESCRIPTION [place] capsule 1 at bedtime BIOTIN ORAL Take by mouth. tiZANidine (ZANAFLEX) 2 mg tablet Take 1 tablet by mouth every 6 hours as needed. CRESTOR 5 mg tablet Take 1 tablet by mouth once daily. clotrimazole-betamethasone (LOTRISONE) cream Apply 1 application to affected area twice daily. HYDROcodone-acetaminophen (NORCO) 5-325 mg per tablet Take 1 tablet by mouth every 8 hours as needed. MAGNESIUM MALATE MISC 1,250 mg twice daily. MAGNESIUM ORAL Take 1 capsule by mouth twice daily. ondansetron orally disintegrating (ZOFRAN ODT) 4 mg disintegrating tablet Take 1 tablet by mouth every 8 hours as needed for Nausea/Vomiting. levonorgestrel (MIRENA) 20 mcg/24 hr (5 years) IUD Inserted in office ACLIDINIUM BROMIDE (TUDORZA PRESSAIR INHALATION) Inhale as instructed. Lancets (FREESTYLE LANCETS) lancets Test blood sugar(s) 2 times daily. Dx: DM2 250.00. Insulin: No LEVALBUTEROL HCL (XOPENEX INHALATION) Use 1 Vial via nebulizer every 6 hours as needed. Cholecalciferol, Vitamin D3, 5,000 unit tab Take 1 tablet by mouth once daily. blood sugar diagnostic (FREESTYLE LITE STRIPS) test strip Test blood sugar(s) 2 times daily. Dx: DM2 250.00. Insulin: No Cranberry Extract (CRANBERRY) 450 mg tab Take 1 tablet by mouth twice daily. Blood-Glucose Meter (FREESTYLE LITE METER) monitoring kit Test sugars 2 time daily and when needed. budesonide-formoterol (SYMBICORT) 160-4.5 mcg/actuation inhaler Inhale 2 Puffs as instructed twice daily. No current facility-administered medications for this visit. ALLERGIES Allergen Reactions - Ciprofloxacin Other: See Comments Mother highly allergic to medication - Imitrex [Sumatripta* GI Upset, Vomiting - Nickel Hives, Swelling - Adhesive Rash, Other: See Comments Pulling of skin - Aspirin GI Upset - Corticosteroids (Gl* Other: See Comments Increase in blood sugars - Cymbalta [Duloxetin* Intolerance - Effexor [Venlafaxin* Other: See Comments - Lipitor [Atorvastat* Hives - Narcotics [Opioids * Other: See Comments Mood changes/depression worsen/if taking must be monitored closley - Nifedipine Other: See Comments Chest pain heart racing and skin flushing - Sulfa (Sulfonamide * Other: See Comments headaches - Tomatoes GI Upset - Topamax [Topiramate] Intolerance - Ultram [Tramadol] Shortness of Breath - Wheat, Wheat Germ Rash PAST SURGICAL HISTORY Procedure Laterality Date - CAUTER TURBINATE MUCOSA,INTRAMURAL 09/19/2012 Turbinoplasty - Dr. Lyon - PAST SURGICAL HISTORY OF cyst removed from Rt eye lid - PAST SURGICAL HISTORY OF scar tissue removed for breast, left - PAST SURGICAL HISTORY OF cysts from the lower back x 2 - PAST SURGICAL HISTORY OF - PAST SURGICAL HISTORY OF Allergy injections once a week - RHINOPLASTY FOR NOSE DEFORM TIP SEPTUM, OS Physical Exam: Constitutional: Pt is a well developed 36 year old female who is alert, oriented, cooperative and in no apparent distress. OBJECTIVE: NVSI unchanged from previous visit. Dermatological: Nails 1-5 b/l are normal. Webspaces clean and dry 1-4 b/l. Skin appears well hydrated and supple. good color, texture, turgor. No open lesions present. No callosities present. Musculoskeletal/Orthopaedic: Patient has no acute pain to palpation of b/l foot and ankle rom of ankle is decreased b/l R>L There is mild laxity of lateral ankles b/l but no pain There is decreased height of arch b/l ASSESSMENT: (M25.371) Ankle instability, right (primary encounter diagnosis) (M25.372) Ankle instability, left (M21.41, M21.42) Pes planus of both feet PLAN: 1. History and physical examination completed today. 2. .discussed ankle instability. She has better stability with ankle braces. She has not tried therapy yet. I recommend she pursue. 3. She does feel better with diabetic inserts. 4. Discussed possible arthritis in ankle pain that she has been seen by her system engineer. Offered baseline xrays but she declined 5. Patient feeling better. She will f/u prn. Aliyah Goss DPM PROGRESS Observed: 03/27/2017 Status: COMPLETED Source: [place] 6:58 PM [facility] [place] REPOSITORY HNO ID: [id number] Author: Francine (Tom) Service: (none) Author Type: Nurse Practitioner Type: Progress Notes Filed: 03/27/2017 7:21 PM Note Text: HPI HPI Mariana Early is a 36 year old female who presents today for CC of cough, sore throat, fever, right ear pain. This started 7 days ago. Has tried tylenol with mild relief. Symptoms are worsened by nothing specific. Risk factors sick exposures at home. Highest fever 102 Review of Systems Constitutional: Positive for fever and malaise/fatigue. Negative for chills and weight loss. HENT: Positive for congestion, ear pain and sore throat. Negative for ear discharge and nosebleeds. Respiratory: Positive for cough and sputum production. Negative for shortness of breath and wheezing. Musculoskeletal: Negative for neck pain. Skin: Negative for itching and rash. PAST MEDICAL HISTORY Diagnosis Date - Asthma Dr. Victorino Trevizo ([facility]) - Dystonia - Elevated LFTs - Fibromyalgia - Hyperlipidemia - Hypoglycemia unawareness associated with type 2 diabetes mellitus (HCC) - Hypothyroid - Migraine headache with aura Not always with aura; treated with Botox Injections by Dr. Ellis - Obesity - Obstructive sleep apnea treated with BiPAP Sleep Medicine Doctor--Dr. Lovett - Occipital neuralgia Dr. 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 Lyon - PAST SURGICAL HISTORY OF cyst removed from Rt eye lid - PAST SURGICAL HISTORY OF scar tissue removed for breast, left - PAST SURGICAL HISTORY OF cysts from the lower back x 2 - PAST SURGICAL HISTORY OF - PAST SURGICAL HISTORY OF Allergy injections once a week - RHINOPLASTY FOR NOSE DEFORM TIP SEPTUM, OS ALLERGIES Ciprofloxacin; Imitrex [Sumatriptan Succinate]; Nickel; Adhesive; Aspirin; Corticosteroids (Glucocorticoids); Cymbalta [Duloxetine]; Effexor [Venlafaxine]; Lipitor [Atorvastatin Calcium]; Narcotics [Opioids - Morphine Analogues]; Nifedipine; Sulfa (Sulfonamide Antibiotics); Tomatoes; Topamax [Topiramate]; Ultram [Tramadol]; Wheat, Wheat Germ MEDICATIONS CALCIUM CARBONATE/VITAMIN D3 (VITAMIN D-3 ORAL) Take by mouth. glimepiride (AMARYL) 4 mg tablet TAKE 1 TABLET BY MOUTH TWICE DAILY. dulaglutide (TRULICITY) 1.5 mg/0.5 mL pnij Inject 1.5 mL subcutaneously once each week. fluvoxaMINE Maleate (LUVOX) 25 mg tablet Take 1 tablet by mouth daily at bedtime. pantoprazole DR (PROTONIX) 40 mg tablet Take 1 tablet by mouth daily before breakfast. Take on empty stomach, 1/2 hr before meal. TAKING NEEDED NOW enalapril (VASOTEC) 5 mg tablet Take 1 tablet by mouth once daily. metFORMIN ER (GLUCOPHAGE XR) 500 mg 24 hr tablet Take 2 tablets by mouth twice daily. olopatadine (PATANOL) 0.1 % ophthalmic solution Use 1 Drop in both eyes twice daily. 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 LORazepam (ATIVAN) 1 mg tablet Take 1 tablet by mouth twice daily as needed for Anxiety. ([facility]seling [facility] provider) fluconazole (DIFLUCAN) 150 mg tablet Start after 2 week induction therapy with 100 mg dose--take 150 mg once weekly. COMPOUNDED PRESCRIPTION Biotin 15,000 once daily COMPOUNDED PRESCRIPTION [place] capsule 1 at bedtime CRESTOR 5 mg tablet Take 1 tablet by mouth once daily. MAGNESIUM MALATE MISC 1,250 mg twice daily. MAGNESIUM ORAL Take 1 capsule by mouth twice daily. ondansetron orally disintegrating (ZOFRAN ODT) 4 mg disintegrating tablet Take 1 tablet by mouth every 8 hours as needed for Nausea/Vomiting. levonorgestrel (MIRENA) 20 mcg/24 hr (5 years) IUD Inserted in office ACLIDINIUM BROMIDE (TUDORZA PRESSAIR INHALATION) Inhale as instructed. Lancets (FREESTYLE LANCETS) lancets Test blood sugar(s) 2 times daily. Dx: DM2 250.00. Insulin: No LEVALBUTEROL HCL (XOPENEX INHALATION) Use 1 Vial via nebulizer every 6 hours as needed. Cholecalciferol, Vitamin D3, 5,000 unit tab Take 1 tablet by mouth once daily. blood sugar diagnostic (FREESTYLE LITE STRIPS) test strip Test blood sugar(s) 2 times daily. Dx: DM2 250.00. Insulin: No Cranberry Extract (CRANBERRY) 450 mg tab Take 1 tablet by mouth twice daily. Blood-Glucose Meter (FREESTYLE LITE METER) monitoring kit Test sugars 2 time daily and when needed. budesonide-formoterol (SYMBICORT) 160-4.5 mcg/actuation inhaler Inhale 2 Puffs as instructed twice daily. varicella virus vaccine, PF, (VARIVAX) 1,350 unit/0.5 mL injection Give 1 dose then repeat dose in 4 to 8 weeks later methocarbamol (ROBAXIN) 500 mg tablet Take 500 mg by mouth twice daily. split in half as needed for back spasms meclizine (ANTIVERT) 12.5 mg tab 2 pills twice daily when was flared up and down to 1 pill twice daily as tapers off by end august(Dr. Lyon--ENT) BIOTIN ORAL Take by mouth. tiZANidine (ZANAFLEX) 2 mg tablet Take 1 tablet by mouth every 6 hours as needed. clotrimazole-betamethasone (LOTRISONE) cream Apply 1 application to affected area twice daily. HYDROcodone-acetaminophen (NORCO) 5-325 mg per tablet Take 1 tablet by mouth every 8 hours as needed. FAMILY HISTORY Problem Relation Age of Onset - Diabetes Mother patient states her mother is no longer diabetic - Thyroid Mother - Cataract Mother - Diabetes Maternal Grandmother - Stroke Maternal Grandmother - Heart Maternal Grandmother afib, tach - fibromyalgia [OTHER] Other multiple female relatives - polycystic ovarian syndrome [OTHER] Other multiple female relatives - autism spectrum [OTHER] Other uncle, cousins, self Social History Substance Use Topics - Smoking status: Never Smoker - Smokeless tobacco: Never Used - Alcohol use 1.5 oz/week 1 Glasses of Wine (5oz) per week Blood pressure 130/80, pulse 104, temperature 37.6 ?C (99.6 ?F), temperature source Tympanic, resp. rate 18, weight 118.8 kg (262 lb), SpO2 97 %. Physical Exam Constitutional: She is oriented to person, place, and time and well-developed, well-nourished, and in no distress. Non-toxic appearance. She has a sickly appearance. No distress. HENT: Head: Normocephalic and atraumatic. Right Ear: Hearing, tympanic membrane, external ear and ear canal normal. Left Ear: Hearing, external ear and ear canal normal. Tympanic membrane is erythematous and bulging. Tympanic membrane is not perforated. Nose: Nose normal. Mouth/Throat: Uvula is midline, oropharynx is clear and moist and mucous membranes are normal. Eyes: Conjunctivae and lids are normal. Pupils are equal, round, and reactive to light. Right eye exhibits no discharge. Left eye exhibits no discharge. No scleral icterus. Neck: Trachea normal and normal range of motion. Neck supple. Cardiovascular: Normal rate, regular rhythm and normal heart sounds. Pulmonary/Chest: Effort normal and breath sounds normal. Lymphadenopathy: She has no cervical adenopathy. Neurological: She is alert and oriented to person, place, and time. Skin: No rash noted. She is not diaphoretic. ASSESSMENT/PLAN: 1. Sinobronchitis - ICD9: 473.9, 490, ICD10: J32.9, J40 (primary diagnosis) - Will begin treatment with Augmentin 875 mg PO BID for 10 days - Supportive care with plenty of fluids, rest, and analgesia prn. - Follow up in 3-5 days if symptoms persist or worsen. - AMOXICILLIN 875 MG-POTASSIUM CLAVULANATE 125 MG TABLET - BENZONATATE 100 MG CAPSULE Suspect that patient had influenza, now 7 days into illness, no indication to test/treat at this time. 2. Acute otitis media, right - ICD9: 382.9, ICD10: H66.91 - Will begin treatment with Augmentin 875 mg PO BID for 10 days - Supportive care with plenty of fluids, rest, and analgesia prn. - Follow up in 3-5 days if symptoms persist or worsen. --If you experience chest pain/shortness of breath go to ER Prescription instructions reviewed with patient as applicable. Patient advised if symptoms do not improve or if symptoms worsen sooner, to contact the office for further evaluation by their primary care physician. Potential red flag symptoms discussed with the patient. Reviewed appropriate action plan to take if red flag symptoms occur. Patient agreeable to treatment plan. Francine Mejia CNP CNOV Observed: 03/27/2017 Status: COMPLETED Source: [place] 6:30 PM [facility] REPOSITORY Office Visit ([facility]) MARIANA EARLY ([id number]) 1980 F Date Time Provider Department 03/27/17 6:30 PM FRANCINE MEJIA (TOM) [facility] During your visit today, we recorded the following information about you: Temperature Pulse Respiration Blood pressure 99.6 degrees 104/minute 18/minute 130/80 Weight 118.8 kg Francine Mejia CNP 03/27/2017 7:21 PM Signed HPI HPI Mariana Sharath is a 36 year old female who presents today for CC of cough, sore throat, fever, right ear pain. This started 7 days ago. Has tried tylenol with mild relief. Symptoms are worsened by nothing specific. Risk factors sick exposures at home. Highest fever 102 Review of Systems Constitutional: Positive for fever and malaise/fatigue. Negative for chills and weight loss. HENT: Positive for congestion, ear pain and sore throat. Negative for ear discharge and nosebleeds. Respiratory: Positive for cough and sputum production. Negative for shortness of breath and wheezing. Musculoskeletal: Negative for neck pain. Skin: Negative for itching and rash. PAST MEDICAL HISTORY Diagnosis Date - Asthma Dr. Victorino Trevizo ([facility]) - Dystonia - Elevated LFTs - Fibromyalgia - Hyperlipidemia - Hypoglycemia unawareness associated with type 2 diabetes mellitus (HCC) - Hypothyroid - Migraine headache with aura Not always with aura; treated with Botox Injections by Dr. Ellis - Obesity - Obstructive sleep apnea treated with BiPAP Sleep Medicine Doctor--Dr. Lovett - Occipital neuralgia Dr. 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 Lyon - PAST SURGICAL HISTORY OF cyst removed from Rt eye lid - PAST SURGICAL HISTORY OF scar tissue removed for breast, left - PAST SURGICAL HISTORY OF cysts from the lower back x 2 - PAST SURGICAL HISTORY OF - PAST SURGICAL HISTORY OF Allergy injections once a week - RHINOPLASTY FOR NOSE DEFORM TIP SEPTUM, OS ALLERGIES Ciprofloxacin; Imitrex [Sumatriptan Succinate]; Nickel; Adhesive; Aspirin; Corticosteroids (Glucocorticoids); Cymbalta [Duloxetine]; Effexor [Venlafaxine]; Lipitor [Atorvastatin Calcium]; Narcotics [Opioids - Morphine Analogues]; Nifedipine; Sulfa (Sulfonamide Antibiotics); Tomatoes; Topamax [Topiramate]; Ultram [Tramadol]; Wheat, Wheat Germ MEDICATIONS CALCIUM CARBONATE/VITAMIN D3 (VITAMIN D-3 ORAL) Take by mouth. glimepiride (AMARYL) 4 mg tablet TAKE 1 TABLET BY MOUTH TWICE DAILY. dulaglutide (TRULICITY) 1.5 mg/0.5 mL pnij Inject 1.5 mL subcutaneously once each week. fluvoxaMINE Maleate (LUVOX) 25 mg tablet Take 1 tablet by mouth daily at bedtime. pantoprazole DR (PROTONIX) 40 mg tablet Take 1 tablet by mouth daily before breakfast. Take on empty stomach, 1/2 hr before meal. TAKING NEEDED NOW enalapril (VASOTEC) 5 mg tablet Take 1 tablet by mouth once daily. metFORMIN ER (GLUCOPHAGE XR) 500 mg 24 hr tablet Take 2 tablets by mouth twice daily. olopatadine (PATANOL) 0.1 % ophthalmic solution Use 1 Drop in both eyes twice daily. 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 LORazepam (ATIVAN) 1 mg tablet Take 1 tablet by mouth twice daily as needed for Anxiety. ([facility]ing [facility] provider) fluconazole (DIFLUCAN) 150 mg tablet Start after 2 week induction therapy with 100 mg dose--take 150 mg once weekly. COMPOUNDED PRESCRIPTION Biotin 15,000 once daily COMPOUNDED PRESCRIPTION [place] capsule 1 at bedtime CRESTOR 5 mg tablet Take 1 tablet by mouth once daily. MAGNESIUM MALATE MISC 1,250 mg twice daily. MAGNESIUM ORAL Take 1 capsule by mouth twice daily. ondansetron orally disintegrating (ZOFRAN ODT) 4 mg disintegrating tablet Take 1 tablet by mouth every 8 hours as needed for Nausea/Vomiting. levonorgestrel (MIRENA) 20 mcg/24 hr (5 years) IUD Inserted in office ACLIDINIUM BROMIDE (TUDORZA PRESSAIR INHALATION) Inhale as instructed. Lancets (FREESTYLE LANCETS) lancets Test blood sugar(s) 2 times daily. Dx: DM2 250.00. Insulin: No LEVALBUTEROL HCL (XOPENEX INHALATION) Use 1 Vial via nebulizer every 6 hours as needed. Cholecalciferol, Vitamin D3, 5,000 unit tab Take 1 tablet by mouth once daily. blood sugar diagnostic (FREESTYLE LITE STRIPS) test strip Test blood sugar(s) 2 times daily. Dx: DM2 250.00. Insulin: No Cranberry Extract (CRANBERRY) 450 mg tab Take 1 tablet by mouth twice daily. Blood-Glucose Meter (FREESTYLE LITE METER) monitoring kit Test sugars 2 time daily and when needed. budesonide-formoterol (SYMBICORT) 160-4.5 mcg/actuation inhaler Inhale 2 Puffs as instructed twice daily. varicella virus vaccine, PF, (VARIVAX) 1,350 unit/0.5 mL injection Give 1 dose then repeat dose in 4 to 8 weeks later methocarbamol (ROBAXIN) 500 mg tablet Take 500 mg by mouth twice daily. split in half as needed for back spasms meclizine (ANTIVERT) 12.5 mg tab 2 pills twice daily when was flared up and down to 1 pill twice daily as tapers off by end august(Dr. Lyon--ENT) BIOTIN ORAL Take by mouth. tiZANidine (ZANAFLEX) 2 mg tablet Take 1 tablet by mouth every 6 hours as needed. clotrimazole-betamethasone (LOTRISONE) cream Apply 1 application to affected area twice daily. HYDROcodone-acetaminophen (NORCO) 5-325 mg per tablet Take 1 tablet by mouth every 8 hours as needed. FAMILY HISTORY Problem Relation Age of Onset - Diabetes Mother patient states her mother is no longer diabetic - Thyroid Mother - Cataract Mother - Diabetes Maternal Grandmother - Stroke Maternal Grandmother - Heart Maternal Grandmother afib, tach - fibromyalgia [OTHER] Other multiple female relatives - polycystic ovarian syndrome [OTHER] Other multiple female relatives - autism spectrum [OTHER] Other uncle, cousins, self Social History Substance Use Topics - Smoking status: Never Smoker - Smokeless tobacco: Never Used - Alcohol use 1.5 oz/week 1 Glasses of Wine (5oz) per week Blood pressure 130/80, pulse 104, temperature 37.6 ?C (99.6 ?F), temperature source Tympanic, resp. rate 18, weight 118.8 kg (262 lb), SpO2 97 %. Physical Exam Constitutional: She is oriented to person, place, and time and well-developed, well-nourished, and in no distress. Non-toxic appearance. She has a sickly appearance. No distress. HENT: Head: Normocephalic and atraumatic. Right Ear: Hearing, tympanic membrane, external ear and ear canal normal. Left Ear: Hearing, external ear and ear canal normal. Tympanic membrane is erythematous and bulging. Tympanic membrane is not perforated. Nose: Nose normal. Mouth/Throat: Uvula is midline, oropharynx is clear and moist and mucous membranes are normal. Eyes: Conjunctivae and lids are normal. Pupils are equal, round, and reactive to light. Right eye exhibits no discharge. Left eye exhibits no discharge. No scleral icterus. Neck: Trachea normal and normal range of motion. Neck supple. Cardiovascular: Normal rate, regular rhythm and normal heart sounds. Pulmonary/Chest: Effort normal and breath sounds normal. Lymphadenopathy: She has no cervical adenopathy. Neurological: She is alert and oriented to person, place, and time. Skin: No rash noted. She is not diaphoretic. ASSESSMENT/PLAN: 1. Sinobronchitis - ICD9: 473.9, 490, ICD10: J32.9, J40 (primary diagnosis) - Will begin treatment with Augmentin 875 mg PO BID for 10 days - Supportive care with plenty of fluids, rest, and analgesia prn. - Follow up in 3-5 days if symptoms persist or worsen. - AMOXICILLIN 875 MG-POTASSIUM CLAVULANATE 125 MG TABLET - BENZONATATE 100 MG CAPSULE Suspect that patient had influenza, now 7 days into illness, no indication to test/treat at this time. 2. Acute otitis media, right - ICD9: 382.9, ICD10: H66.91 - Will begin treatment with Augmentin 875 mg PO BID for 10 days - Supportive care with plenty of fluids, rest, and analgesia prn. - Follow up in 3-5 days if symptoms persist or worsen. --If you experience chest pain/shortness of breath go to ER Prescription instructions reviewed with patient as applicable. Patient advised if symptoms do not improve or if symptoms worsen sooner, to contact the office for further evaluation by their primary care physician. Potential red flag symptoms discussed with the patient. Reviewed appropriate action plan to take if red flag symptoms occur. Patient agreeable to treatment plan. TOM Coats CNP 03/27/2017 7:16 PM Addendum RESPIRATORY INFECTION GENERAL INFORMATION: An upper respiratory tract infection, or cold, is a viral infection of the airway passages. It can be caused by any one of almost 200 different viruses. Common symptoms include a runny or stuffy nose, sneezing, watery eyes, sore throat, cough, and slight fever. Colds are contagious, especially during the first 3 or 4 days and cannot be cured by antibiotics. They are spread by coughs, sneezes, and direct contact, especially [id number]. A respiratory tract infection usually clears up in a few days, but some people may be sick for a week or two. INSTRUCTIONS: 1. Be careful not to blow your nose too hard because this may cause a nosebleed. 2. Use a cool-mist humidifier (vaporizer) to increase air moisture. This will make it easier for you to breathe. Do not use hot steam. 3. Rest as much as possible and get plenty of sleep. 4. Wash your hands often, especially after you blow your nose. Cover your mouth and nose with a tissue when you sneeze or cough. 5. Drink plenty of clear fluids (8 glasses a day) such as water, fruit juice, tea, clear soups, and carbonated beverages. CONTACT YOUR DOCTOR IF : 1. Your fever lasts more than 3 days. 2. You have a sore throat that gets worse or you see white or yellow spots in your throat. 3. Your cough gets worse or lasts more than 10 days. 4. You develop a rash anywhere on your skin. 5. You have an earache or a headache. 6. You have thick greenish or yellowish discharge from your nose. RETURN IMMEDIATELY IF: 1. You cough up thick yellow, green, espinoza, or bloody sputum. 2. You have difficulty breathing, pain in your chest, or your skin or nails look espinoza or blue. 3. You have shaking chills or a temperature over 102 F (39 C). OTITIS MEDIA GENERAL INFORMATION: Otitis media is an infection of the middle ear. The middle ear sits behind the eardrum. This infection may be caused by a virus or bacteria and often follows a cold. Children often have repeat ear infections. Otitis media is not contagious. INSTRUCTIONS: 1. An antibiotic has been prescribed. It should be taken exactly as prescribed. Do not stop the medicine even if the symptoms go away. 2. [id number] pain medication may be taken or other pain medication as prescribed by the doctor. 3. Nothing should be placed in the ear unless instructed by your doctor. 4. The patient may return to school/daycare or work when the temperature is normal (98.6 F or 37 C). 5. The patient should not swim while the ear is infected. CONTACT YOUR DOCTOR IF YOU OR YOUR CHILD: 1. Does not feel better within 36 hours. 2. Develops a temperature over 102E F (39E C). 3. Starts vomiting or has diarrhea. 4. Develops drainage from the affected ear. 5. Has any new problem that may be related to the medicine prescribed. RETURN TO THE ED IF: 1. You or your child has a severe headache or pain around the ear. 2. You or your child notice swelling around the ear. 3. You or your child has a seizure (convulsion), twitching of the facial muscles, or passes out. 4. You or your child is dizzy, has a stiff neck, or cannot walk or talk normally. 5. Your child becomes more irritable or listless (not interested in his or her surroundings, does not get soothed by you holding him or her). Referring Provider: SELF [[id number]] Allergies As of Date: 03/27/2017 Noted Allergy Reaction CIPROFLOXACIN 04/18/2011 14 - Other: See Comments Comments: Mother highly allergic to medication IMITREX (SUMATRIPTAN SUCCINATE) 04/18/2011 8 - GI Upset 11 - Vomiting NICKEL 05/14/2015 4 - Hives 7 - Swelling ADHESIVE 04/18/2011 2 - Rash 14 - Other: See Comments Comments: Pulling of skin ASPIRIN 04/18/2011 8 - GI Upset CORTICOSTEROIDS (GLUCOCORTICOIDS) 08/01/2014 14 - Other: See Comments Comments: Increase in blood sugars CYMBALTA (DULOXETINE) 11/28/2013 5 - Intolerance EFFEXOR (VENLAFAXINE) 08/23/2015 14 - Other: See Comments LIPITOR (ATORVASTATIN CALCIUM) 08/26/2014 4 - Hives NARCOTICS (OPIOIDS - MORPHINE JERRICA*11/02/2011 14 - Other: See Comments Comments: Mood changes/depression worsen/if taking must be monitored closley NIFEDIPINE 08/27/2013 14 - Other: See Comments Comments: Chest pain heart racing and skin flushing SULFA (SULFONAMIDE ANTIBIOTICS) 04/18/2011 14 - Other: See Comments Comments: headaches TOMATOES 01/26/2017 8 - GI Upset TOPAMAX (TOPIRAMATE) 11/28/2013 5 - Intolerance ULTRAM (TRAMADOL) 08/01/2014 12 - Shortness of Breath WHEAT, WHEAT GERM 01/26/2017 2 - Rash Date Reviewed: 03/27/2017 Reviewed by: Francine HerreraArbour-Hri HospitalNaun Mejia - Fully Assessed Reason for Visit: Cough [28] Cmt: sore throat, swollen glands AND fever Tmax 102 Ear Problem [38] Cmt: right ear pain AND feels plugged. Nasal congestion Primary Visit Diagnosis:Sinobronchitis [J32.9, J40] Other Visit Diagnosis:Acute otitis media, right [H66.91] Order(s):amoxicillin-clavulanic acid (AUGMENTIN) 875-125 mg per tabletTake 1 tablet by mouth twice daily for 10 days.Disp: 20 tabletRfl: 0 benzonatate (TESSALON PERLE) 100 mg capsuleTake 2 capsules by mouth three times daily as needed.Disp: 30 capsuleRfl: 0 Prescriptions as of 03/27/2017 Sig: VITAMIN D-3 ORAL Take by mouth. GLIMEPIRIDE 4 MG TABLET TAKE 1 TABLET BY MOUTH TWICE * DULAGLUTIDE 1.5 MG/0.5 ML SUB* Inject 1.5 mL subcutaneously * FLUVOXAMINE 25 MG TABLET Take 1 tablet by mouth daily * PANTOPRAZOLE 40 MG TABLET,DEL* Take 1 tablet by mouth daily * ENALAPRIL MALEATE 5 MG TABLET Take 1 tablet by mouth once d* METFORMIN ER 500 MG TABLET,EX* Take 2 tablets by mouth twice* OLOPATADINE 0.1 % EYE DROPS Use 1 Drop in both eyes twice* LEVALBUTEROL 0.63 MG/3 ML LUIS* Use 3 mL via nebulizer every * LORAZEPAM 1 MG TABLET Take 1 tablet by mouth twice * FLUCONAZOLE 150 MG TABLET Start after 2 week induction * COMPOUNDED PRESCRIPTION Biotin 15,000 once daily COMPOUNDED PRESCRIPTION [place] capsule 1 at bedtime CRESTOR 5 MG TABLET Take 1 tablet by mouth once d* MAGNESIUM MALATE MISC 1,250 mg twice daily. MAGNESIUM ORAL Take 1 capsule by mouth twice* ONDANSETRON 4 MG DISINTEGRATI* Take 1 tablet by mouth every * LEVONORGESTREL 20 MCG/24 HR (* Inserted in office TUDORZA PRESSAIR INHALATION Inhale as instructed. LANCETS Test blood sugar(s) 2 times d* XOPENEX INHALATION Use 1 Vial via nebulizer ever* CHOLECALCIFEROL (VITAMIN D3) * Take 1 tablet by mouth once d* BLOOD SUGAR DIAGNOSTIC STRIPS Test blood sugar(s) 2 times d* CRANBERRY FRUIT CONCENTRATE 4* Take 1 tablet by mouth twice * * BLOOD-GLUCOSE METER KIT Test sugars 2 time daily and * * BUDESONIDE-FORMOTEROL HFA 160* Inhale 2 Puffs as instructed * AMOXICILLIN 875 MG-POTASSIUM * Take 1 tablet by mouth twice * BENZONATATE 100 MG CAPSULE Take 2 capsules by mouth thre* VARICELLA VIRUS VACCINE LIVE * Give 1 dose then repeat dose * METHOCARBAMOL 500 MG TABLET Take 500 mg by mouth twice da* MECLIZINE 12.5 MG TABLET 2 pills twice daily when was * BIOTIN ORAL Take by mouth. TIZANIDINE 2 MG TABLET Take 1 tablet by mouth every * CLOTRIMAZOLE-BETAMETHASONE 1 * Apply 1 application to affect* HYDROCODONE 5 MG-ACETAMINOPHE* Take 1 tablet by mouth every * Medication notes this encounter METHOCARBAMOL 500 MG TABLET >> Amalia Ortez LPN 03/27/2017 6:45 PM >> AMALIA ORTEZ LPN e Mar 27, 2017 6:45 PM No longer taking Problem List As Of Date 03/27/2017 Noted Resolved Diabetes mellitus type 2, uncontrolled (HCC) [E*INVALID FOR*09/03/2015 Hyperlipidemia [E78.5] INVALID FOR* Obesity, Class III, BMI 40-49.9 (morbid obesity*INVALID FOR*09/03/2015 Hypothyroid [E03.9] INVALID FOR*09/03/2015 Obstructive sleep apnea [G47.33] INVALID FOR*09/03/2015 Asthma, moderate persistent [J45.40] INVALID FOR*09/03/2015 Albuminuria [R80.9] INVALID FOR*09/03/2015 Vitamin D deficiency [E55.9] INVALID FOR* Faintness [R55] INVALID FOR*09/03/2015 Type 2 diabetes, controlled, with neuropathy (H*INVALID FOR*02/05/2015 PCOS (polycystic ovarian syndrome) [E28.2] INVALID FOR* More... Migraine headache without aura [G43.009] INVALID FOR*09/03/2015 More... Restless legs syndrome (RLS) [G25.81] INVALID FOR*09/03/2015 More... Right ankle instability [M25.371] INVALID FOR*09/03/2015 Left ankle instability [M25.372] INVALID FOR*09/03/2015 Type 2 diabetes mellitus with hyperglycemia (HC* More... Type 2 diabetes mellitus with neurological john* More... Type 2 diabetes mellitus with polyneuropathy (H* Hypoglycemia unawareness associated with type 2* Obesity [E66.9] 09/05/2016 Hypothyroid [E03.9] More... Ovarian cyst, left [N83.202] INVALID FOR* Multiple thyroid nodules [E04.2] INVALID FOR* Bilateral low back pain with sciatica [M54.40] INVALID FOR* Asymptomatic PVCs [I49.3] INVALID FOR* Morbid obesity with BMI of 40.0-44.9, adult (HC*INVALID FOR* Statin intolerance [Z78.9] INVALID FOR* More... Hypogammaglobulinemia (HCC) [D80.1] INVALID FOR* Recurrent infections [B99.9] INVALID FOR* Allergic rhinitis [J30.9] INVALID FOR* Asthma, well controlled [J45.909] INVALID FOR* MEGHAN on CPAP [G47.33, Z99.89] INVALID FOR* Other instructions from your clinician: RESPIRATORY INFECTION GENERAL INFORMATION: An upper respiratory tract infection, or cold, is a viral infection of the airway passages. It can be caused by any one of almost 200 different viruses. Common symptoms include a runny or stuffy nose, sneezing, watery eyes, sore throat, cough, and slight fever. Colds are contagious, especially during the first 3 or 4 days and cannot be cured by antibiotics. They are spread by coughs, sneezes, and direct contact, especially ktdg-co-bwfo. A respiratory tract infection usually clears up in a few days, but some people may be sick for a week or two. INSTRUCTIONS: 1. Be careful not to blow your nose too hard because this may cause a nosebleed. 2. Use a cool-mist humidifier (vaporizer) to increase air moisture. This will make it easier for you to breathe. Do not use hot steam. 3. Rest as much as possible and get plenty of sleep. 4. Wash your hands often, especially after you blow your nose. Cover your mouth and nose with a tissue when you sneeze or cough. 5. Drink plenty of clear fluids (8 glasses a day) such as water, fruit juice, tea, clear soups, and carbonated beverages. CONTACT YOUR DOCTOR IF : 1. Your fever lasts more than 3 days. 2. You have a sore throat that gets worse or you see white or yellow spots in your throat. 3. Your cough gets worse or lasts more than 10 days. 4. You develop a rash anywhere on your skin. 5. You have an earache or a headache. 6. You have thick greenish or yellowish discharge from your nose. RETURN IMMEDIATELY IF: 1. You cough up thick yellow, green, espinoza, or bloody sputum. 2. You have difficulty breathing, pain in your chest, or your skin or nails look espinoza or blue. 3. You have shaking chills or a temperature over 102 F (39 C). OTITIS MEDIA GENERAL INFORMATION: Otitis media is an infection of the middle ear. The middle ear sits behind the eardrum. This infection may be caused by a virus or bacteria and often follows a cold. Children often have repeat ear infections. Otitis media is not contagious. INSTRUCTIONS: 1. An antibiotic has been prescribed. It should be taken exactly as prescribed. Do not stop the medicine even if the symptoms go away. 2. Dany-wqh-zvvcwqx pain medication may be taken or other pain medication as prescribed by the doctor. 3. Nothing should be placed in the ear unless instructed by your doctor. 4. The patient may return to school/daycare or work when the temperature is normal (98.6 F or 37 C). 5. The patient should not swim while the ear is infected. CONTACT YOUR DOCTOR IF YOU OR YOUR CHILD: 1. Does not feel better within 36 hours. 2. Develops a temperature over 102E F (39E C). 3. Starts vomiting or has diarrhea. 4. Develops drainage from the affected ear. 5. Has any new problem that may be related to the medicine prescribed. RETURN TO THE ED IF: 1. You or your child has a severe headache or pain around the ear. 2. You or your child notice swelling around the ear. 3. You or your child has a seizure (convulsion), twitching of the facial muscles, or passes out. 4. You or your child is dizzy, has a stiff neck, or cannot walk or talk normally. 5. Your child becomes more irritable or listless (not interested in his or her surroundings, does not get soothed by you holding him or her). Prescriptions ordered this encounter Disp Refills Start End AMOXICILLIN 875 MG-POTASSIUM CLAVULA* 20 t* 0 03/27/2017 04/06/2017 Route: ORAL Sig: Take 1 tablet by mouth twice daily for 10 days. BENZONATATE 100 MG CAPSULE 30 c* 0 03/27/2017 Route: ORAL Sig: Take 2 capsules by mouth three times daily as needed. Letter Text [facility] Francine Mejia CNP [address], [place] [address] 03/27/2017 Mariana Early CCF# [id number] [address] [place] [address] TO WHOM IT MAY CONCERN: This is to confirm that Mariana Early had an appointment and was seen at the [facility] in the Department of Urgent Care by Francine Mejia CNP on 03/27/2017. Sincerely yours, Francine Mejia CNP Encounter Status:Closed by FRANCINE MEJIA CNP on 03/27/17 ALLERGIES ALLERGIES DATE TYPE / NAME / CODE REACTION SEVERITY SOURCE CODE 11/03/2017 Drug ciprofloxacin Shortness of Unknown [place] Allergy/41 HCl/[id number](RXNOR breath Community 7187333([facility]) Repository 11/03/2017 Drug sumatriptan Vomiting Unknown [place] Allergy/41 succinate/[id number] [facility] 6604197( (RXNO) [facility]) Repository 11/03/2017 Drug Opioids - Morphine Inflammation of Unknown [place] Allergy/41 Analogues/[id number] vein Community 5771107( (NO) [facility]) Repository 11/03/2017 Drug Sulfa (Sulfonamide Shortness of Unknown [place] Allergy/41 Antibiotics)/P144520 breath Community 4167349([facility](RXNORM) [facility]) Repository 11/03/2017 Drug aspirin/[id number](R Nausea/Vom/Diarrh Unknown [place] Allergy/41 XNORM) ea Community 6338105([facility]) Repository 11/03/2017 Drug ciprofloxacin/D61390 Shortness of Unknown [place] Allergy/41 2882(RXNORM) breath Community 5518466([facility]) Repository 11/03/2017 Drug adhesive/W002966788( Other Unknown [place] Allergy/41 RXNORM) Community 9232251([facility] OMED [facility]) Repository 11/03/2017 Drug sumatriptan/K7033437 Vomiting Unknown [place] Allergy/41 44(RXNORM) Community 8106864( Hospital OMED CT) Repository 11/03/2017 Drug nickel/W509523138(RX Rash Unknown [place] Allergy/41 NORM) Community 0462052([facility] OMED CT) Repository 11/03/2017 Drug tomato/R765401184(RX Food Allergy Unknown [place] Allergy/41 NORM) Community 8425311([facility] OMED CT) Repository 11/03/2017 Drug wheat/Y512851510(RXN Food Allergy Unknown [place] Allergy/41 ORM) Community 3455221([facility] OMED CT) Repository 01/26/2017 Food/42201 TOMATOES GI UPSET [place] 1000([facility] Main D CT) [place] Repository 01/26/2017 Food/54785 WHEAT, WHEAT GERM RASH [place] 1000([facility] Main D CT) [place] Repository 04/07/2016 DRUG APPLE [facility] INGREDI/41 Three 3975493(SN Repository OMED CT) 04/07/2016 DRUG ATORVASTATIN [facility] INGREDI/41 Three 8678925(SN Repository OMED CT) 04/07/2016 Drug CORTICOSTEROIDS [facility] Class/4195 (GLUCOCORTICOIDS) Three 94365(SN Repository ED CT) 04/07/2016 DRUG DULOXETINE [facility] INGREDI/41 Three 2144477(SN Repository OMED CT) 04/07/2016 DRUG NICKEL [facility] INGREDI/41 Three 4819183(SN Repository OMED CT) 04/07/2016 DRUG NIFEDIPINE [facility] INGREDI/41 Three 8372458(SN Repository OMED CT) 04/07/2016 DRUG SUMATRIPTAN [facility] INGREDI/41 Three 2424876(SN Repository OMED CT) 04/07/2016 DRUG TRAMADOL [facility] INGREDI/41 Three 2645709(SN Repository OMED CT) 04/07/2016 DRUG VENLAFAXINE [facility] INGREDI/41 Three 6464396(SN Repository OMED CT) 08/23/2015 DRUG VENLAFAXINE OTHER: SEE C [facility] INGREDI/41 Clinic Main 3311136( [place] OMED [facility]) Repository 05/14/2015 DRUG NICKEL HIVES Med [facility] INGREDI/41 Clinic Main 0595222( [place] OMED [facility]) Repository 08/26/2014 DRUG ATORVASTATIN CALCIUM HIVES [place] INGREDI/41 Clinic Main 5591638( [place] OMED [facility]) Repository 08/01/2014 Drug CORTICOSTEROIDS OTHER: SEE C [place] Class/4195 (GLUCOCORTICOIDS) Clinic Main 37583(SNOM [place] ED CT) Repository 08/01/2014 DRUG TRAMADOL SHORTNESS OF [place] INGREDI/41 Clinic Main 7383055( [place] OMED [place]) Repository 11/28/2013 DRUG TOPIRAMATE [facility] INGREDI/41 Three 3179901(SN Repository OMED CT) 11/28/2013 DRUG DULOXETINE INTOLERANCE [place] INGREDI/41 Clinic Main 9850221( [place] O[place]) Repository 11/28/2013 DRUG TOPIRAMATE INTOLERANCE [place] INGREDI/41 Clinic Main 3093535( [place] O[place]) Repository 08/27/2013 DRUG NIFEDIPINE OTHER: SEE C [place] INGREDI/41 Clinic Main 4370337( [place] OMED [place]) Repository 10/21/2012 DRUG ASPIRIN [facility] INGREDI/41 Three 9525244(SN Repository OMED CT) 10/21/2012 DRUG CIPROCINONIDE [facility] INGREDI/41 Three 0275046(SN Repository OMED CT) 11/02/2011 Drug OPIOIDS - MORPHINE Unknown [facility] Class/4195 ANALOGUES Three 55933(SNOM Repository ED CT) 11/02/2011 Drug OPIOIDS - MORPHINE OTHER: SEE C [facility] Class/4195 ANALOGUES Clinic Main 03115(SNOM [place] ED CT) Repository 04/18/2011 Drug SULFA (SULFONAMIDE Unknown [facility] Class/4195 ANTIBIOTICS) Three 18759(SNOM Repository ED CT) 04/18/2011 Drug ADHESIVE Rash Low [facility] Class/4195 Three 66264(SNOM Repository ED CT) 04/18/2011 DRUG CIPROFLOXACIN OTHER: SEE C [place] [facility] INGREDI/41 Clinic Main 4337471( [place] OMED [place]) Repository 04/18/2011 DRUG SUMATRIPTAN GI UPSET High [place] INGREDI/41 SUCCINATE Clinic Main 1663095( [place] O[place]) Repository 04/18/2011 DRUG ADHESIVE RASH [place] INGREDI/41 Clinic Main 2365640( [place] O[place]) Repository 04/18/2011 DRUG ASPIRIN GI UPSET [place] INGREDI/41 Clinic Main 8704478( [place] O[place]) Repository 04/18/2011 Drug SULFA (SULFONAMIDE OTHER: SEE C [place] Class/4195 ANTIBIOTICS) Clinic Main 95534([facility] ED CT) Repository ENCOUNTERS ENCOUNTERS ADMIT/DISCHARGE ACCOUNT NUMBER ADMITTING ENCOUNTER LOCATION SOURCE CLASS 03/20/2018 [id number] Ambulatory [facility] ding:RAD Repository 03/15/2018 [id number] Ambulatory Buildin[facility] [employer] [facility] ([place]ository 03/06/2018/03/08/19 [id number] MARGARITA, Inpatient Buildin [employer] TOMMY A Encounter SRoom[facility] 3760Bed: 1 Repository 02/28/2018/02/28/19 [id number] Ambulatory [place] 19 [facility] Main [place] Repository 02/27/2018 [id number] Ambulatory Buildin [employer] ([place] Repository 02/22/2018/02/23/20 [id number] Ambulatory [place] 18 [facility] Main [place] Repository 02/12/2018 [id number] Ambulatory BuildinB [employer] [place] Rep[place] 02/11/2018/03/12/19 [id number] Ambulatory [place] 19 Clinic Main [place] Repository 02/07/2018/02/08/20 [id number] Ambulatory [place] 18 Clinic Main [place] Repository 02/01/2018/02/23/20 [id number] Ambulatory [place] 18 Clinic Main [place] Repository 01/22/2018/01/23/20 [id number] Ambulatory [place] 18 Clinic Main [place] Repository 01/22/2018/01/23/20 [id number] Ambulatory [place] 18 Clinic Main [place] Repository 01/22/2018/01/23/20 [id number] Ambulatory [place] 18 Clinic Main [place] Repository 01/20/2018/01/23/20 [id number] Ambulatory [place] 18 Clinic Main [place] Repository 01/02/2018 [id number] Ambulatory [facility] ding:CT Repository 12/21/2017 [id number] Ambulatory [facility] ding:LABSPEC Repository 12/14/2017/12/15/19 [id number] Ambulatory [place] 18 [facility] Main [place] Repository 11/27/2017 [id number] Ambulatory [facility] ding:OPBI Repository 11/19/2017 [id number] Ambulatory BuildinN [employer] [facility] ([place]) Repository 11/19/2017 [id number] Ambulatory BuildinL [employer] [facility] ([place] Repository 11/09/2017 [id number] Ambulatory BuildinL [employer] [facility] [place] Repository 11/09/2017 [id number] Ambulatory BuildinC [employer] [facility] [place] Repository 11/05/2017 [id number] Ambulatory BuildinN [employer] [facility] ([place]) Repository 11/03/2017/11/04/19 [id number] Emergency [address] ding:ED Repository 11/02/2017/11/06/19 [id number] Ambulatory [address] Repository 11/01/2017 [id number] Ambulatory Buildin [employer] [facility] ([place]) Repository 11/01/2017/11/02/19 [id number] MARGARITA, Ambulatory BuildinE Infoxel 18 TOMMY Daphne NRoom: [employer] [facility] ([place]) Repository 10/30/2017 [id number] Ambulatory BuildinN [employer] [facility] [place] Rep[place] 10/22/2017 [id number] Ambulatory [facility]in[facility] [employer] [facility] [place] Repository 2017 [id number] Ambulatory [facility] Repository ng:H.ND 10/08/2017 [id number] Ambulatory [facility] ding:LABSPEC Repository 10/05/2017/10/06/19 [id number] Ambulatory [address] Repository 09/27/2017 [id number] Ambulatory Buildin [facility] [facility] ([place]) Repository 09/04/2017/09/06/19 [id number] Ambulatory [address] Main [place] Repository 08/31/2017/09/06/19 [id number] Ambulatory [address] Repository 08/27/2017/09/12/19 [id number] Ambulatory [address] Repository 08/18/2017/08/29/19 [id number] Ambulatory [address] Repository 07/30/2017 [id number] Ambulatory [facility] ([place]) Repository 07/27/2017/07/28/19 [id number] Emergency [address] ding:ED Repository 07/24/2017/07/26/19 [id number] Ambulatory [address] Repository 07/04/2017/07/19/19 [id number] Ambulatory [address] Repository 07/04/2017 [id number] Ambulatory Building[facility] Three Repository 07/03/[id number] Keo Ambulatory [facility] Repository 07/03/2017/07/04/19 [id number] Ambulatory Building:[address] Repository 07/02/2017/07/03/19 [id number] Ambulatory [address] Repository 06/29/2017 [id number] Ambulatory BuildinP [email or web address] ([place] Repository 06/27/2017/06/28/19 [id number] Ambulatory [address] Repository 06/27/2017/06/29/19 [id number] Ambulatory [address] Repository 06/21/2017/06/22/19 [id number] Ambulatory [address] ding:[facility] Repository 06/14/2017/06/15/19 [id number] Ambulatory [address] Repository 06/08/2017 [id number] Ambulatory ABuilding:[facility] Repository 05/28/2017/06/05/19 [id number] Ambulatory [address] Repository 05/24/2017 [id number] Ambulatory BuildinD [employer] ([place] Repository 05/24/2017 [id number] Ambulatory [facility]inN [employer] [place] Repository 05/21/2017 [id number] Ambulatory [facility] ding:MRI Repository 05/14/2017/05/15/19 [id number] Ambulatory [address] Repository 04/27/2017 [id number] Ambulatory BuildinD [employer] ([place] Repository 04/27/2017 [id number] Ambulatory [facility]B [facility] ([place]) Repository 04/18/2017/04/27/19 [id number] Ambulatory [address] Repository 04/04/2017 [id number] Ambulatory Buildin[address] [place] [address] System ([place]) Repository 04/02/2017/04/02/19 [id number] Ambulatory Building:[place] [address] ENDOGLESSNER Three Repository 03/27/2017/03/27/19 [id number] Ambulatory [address] Repository PAYERS PAYERS ENCOUNTER GUARANTOR PAYER SUBSCRIBER SOURCE 03/20/2018 MARIANA E Primary MARIANA E [place] [id number] Insurance:CARESOURCEP MCWILLIAMSDOB: [facility] Number: [id number], [place] [id number] Repository 759[address]Cqv: ([phone]) Date:2018-03-20P O [phone] () [address]ATTN: [place] [address]UA: 03/20/2018 Secondary NOT GIVENUNK [place] Insurance:SELF PAY [facility] Number: Effective Repository Date:2018-03-20 01/02/2018 MARIANA E Primary MARIANA E [place] [id number] Insurance:CARESOURCEP MCWILLIAMSDOB: [facility] Number: [id number] [place], [place] [id number] Repository 634[address]Uru: ([phone]) Date:2017-12-21P O [phone] () [address]ATTN: [place] [address]WL: 01/02/2018 Secondary NOT GIVENUNK [place] Insurance:SELF PAY [facility] Number: Effective Repository Date:2017-12-21 12/21/2017 MARIANA E Primary MARIANA E [place] [id number] Insurance:CARESOURCEP MCWILLIAMSDOB: [facility] Number: [id number] [place], [place] [id number] Repository 70[address]Vtz: ([phone]) Date:2017-12-21P O [phone] () [address]ATTN: [place] [address]OL: 12/21/2017 Secondary NOT GIVENUNK [place] Insurance:SELF PAY [facility] Number: Effective Repository Date:2017-12-21 11/27/2017 Mariana E Primary Mariana E [place] [id number] Insurance:CARESOURCEP McwilliamsDOB: [facility] Number: [id number], [place] [id number] Repository [address]Qhm: ([phone]) Date:2017-11-23P O [phone] () [address]ATTN: [place] [address]GY: 11/27/2017 Secondary NOT GIVENUNK [place] Insurance:SELF PAY [facility] Number: Effective Repository Date:2017-11-23 11/03/2017 Mariana E Primary Mariana E [place] [id number] Insurance:CARESOURCEP McwilliamsDOB: [facility] Number: [id number], [place] [id number] Repository [address]Qjh: ([phone]) Date:2017-11-03P O [phone] () [address]ATTN: [place] [address]ZE: 11/03/2017 Secondary NOT GIVENUNK [place] Insurance:SELF PAY [facility] Number: Effective Repository Date:2017-11-03 2017 MARIANA Primary MARIANA [id number] Insurance:CARESOURCEP [facility]LAISEI[facility] Number: Repository [place], [place] [id number] [address]Ows: (194) Date:2017-05-27P.O. [phone] () [address], [place] [address]IC: 10/08/2017 Mariana E Primary Mariana E [place] [id number] Insurance:CARESOURCEP McwilliamsDOB: [facility] Number: [id number], [place] [id number] Repository [address]Oao: ([phone]) Date:2017-10-08P O [phone] (HP) [address]ATTN: [place] [address]PZ: 10/08/2017 Secondary NOT GIVENUNK [place] Insurance:SELF PAY [facility] Number: Effective Repository Date:2017-10-08 07/27/2017 Mariana E Primary Mariana E [place] [id number] Insurance:CARESOURCEP MclelliamsDOB: [facility] Number: [id number], [place] [id number] Repository [address]Gfo: ([phone]) Date:2017-07-27P O [phone] () [address]ATTN: [place] [address]SJ: 07/27/2017 Secondary NOT GIVENUNK [place] Insurance:SELF PAY [facility] Number: Effective Repository Date:2017-07-27 07/04/2017 [facility] HospitalLL[facility]SD[facility]: Insurance:CARESOURCE MCLELLIAMSDOB: Three MANAGED [id number] Repository [place] MED[place]Policy [place] [address], Number: [place] [address]Zqf: (999) [place] [address]Qlz: [id number] [phone] (HP) Date:[id number] BOX (HP) [address], [place] [address]OP: 07/03/2017 Primary [facility] Insurance:CareSourceP WILLIAMSDOB: Jamar Number: [id number] [place] [id number] Date:[place], [place] Repository Name:[facility] [address]Wsh: [phone]) [address] [place] [address] [phone] (HP) [id number]: 07/03/2017 [facility]:CARESOPENIKESE ISLAND LEPER HOSPITALB: [facility] [id number] Repository [place] MEDICAIDPolicy [place] Number: [place] [address]Gsa: [phone]: [phone]) [id number] [phone] (HP) [phone] (HP) Date:[id number] [address]VH: 06/21/2017 [facility] Insurance:CARESOPENIKESE ISLAND LEPER HOSPITALB: [facility] MEDICAIDPolicy [id number] Repository [facility] Number: [place] [id number] [place] [address]Ape: [phone]: ([phone]) Date:2017-06-21 [phone] (HP)Tel: [phone] (HP) [id number] (WP) Name:[address] [address]LS: 06/08/2017 [facility]: Insurance:[facility] OK[facility] CITYJoanna [facility]ITALB: [facility] MEDICAIDPol[facility] [id number] Repository [place] Number: Jar[place] [id number] [place] [address]Vai: [phone]: ([phone]) Date:2017-06-08 [phone] (HP)Tel: [phone] (HP) [id number] () Name:[address] [place] [address]XR: 05/21/2017 Mariana E Primary Mariana E [facility] [id number] Insurance:CARESOMcLean HospitalB: [facility] Number: [id number], [place] [id number] Repository [address]Jyb: ([phone]) Date:2017-05-07 O [phone] () BOX [facility] CenterATTN: [place] [address]CJ: 05/21/2017 Secondary NOT GIVENUNK [place] Insurance:SELF PAY [facility] Number: Effective Repository Date:2017-05-07 04/02/2017 MARIANA E Primary [facility] CenterBLAISEIAMSDOB: Insurance:CARESOURCE RAYSAB: Three MANAGED [id number] Repository [place] MEDICAIDPolicy [address], [place] Number: [place] [address]Rxo: [phone]: [phone] [id number] [phone] () Date:[id number] [address]LC:
== END ==
PROVIDERS: Family Provider Internal Medicine; PCP Internal Medicine; Referring Provider Psychiatry & Neurology Neurology; Visit Provider Psychiatry & Neurology Neurology
DX: M54.2 Cervicalgia (principal)
CPT/HCPCS: 72052

== ENCOUNTER 2018-04-26 17:30 | Emergency (ER) | payer MEDICAID, SELFPAY ==
[2018-04-26 17:31] VITALS: BP 135/73; PULSE 88; RESP 22; TEMP 36.9; O2SAT 99; BMI 36.3
--- NOTE | 2018-04-26 17:52 | ED.VISSUMM ---
- ER Visit Summary Date of Service: 04/26/18 Chief Complaint: Nausea, vomiting and diarrhea History of Present Illness: The patient is a 37 F that is his gastric sleeve surgery done at [facility] in February. Patient is known history of hypertension and mqj-lnynxmf-ojdyvwrwn diabetes. States initially his surgery went well. She did not develop diarrhea that was C. difficile negative but was positive for Pseudomonas which she is currently being worked up by infectious disease at that facility. Today started having nausea and vomiting. [place] like she was dehydrated and came in to get IV fluids. She denies any hematemesis or fever. No significant abdominal pain. Currently since the surgery she is lost about 35 pounds and they are happy so far with the results. Physical Examination: Well-appearing young female. Vital signs are stable. Afebrile. She does not look septic or toxic. No acute distress. HEENT exam mildly dry mixed membranes. Neck nontender. Lungs clear to auscultation bilaterally. Heart regular rhythm no murmur. Abdomen soft. Nondistended. Normal bowel sounds. No peritoneal signs. Ex lap incisions are dry and clean. No signs of obstruction. Moving all 4 extremities. No edema. Neurologically she is awake and alert. Back nontender. Test Results: Chemistry panel shows no acute abnormality. Normal creatinine and gap. Normal potassium. Emergency Department Course and Treatment: Patient treated with IV fluids and IV Zofran. Repeat exam at 1930 patient doing well. Nausea resolved. Abdomen benign. She is comfortable being discharged home. She has nausea medication at home. Treatment Plan: Plenty of fluids and rest. Increase diet slowly. Follow-up with her physicians. Disposition: Discharge Impression: Acute nausea, vomiting diarrhea Dehydration Status post gastric sleeve surgery This note was generated with [employer] software. It may contain incorrect words, spelling, and punctuation that were not noted in review of the chart prior to signing ED Disposition - Plan for ED Patient: Referrals: Shirlene George MD [Primary Care Provider] -
--- NOTE | 2018-04-26 17:55 | ED.DCSUM_ITS ---
- ER Visit Summary Date of Service: 04/26/18 Chief Complaint: Nausea, vomiting and diarrhea History of Present Illness: The patient is a 37 F that is his gastric sleeve surgery done at [facility] in February. Patient is known history of hypertension and rjp-zlwnwrc-ebzykjcho diabetes. States initially his surgery went well. She did not develop diarrhea that was C. difficile negative but was positive for Pseudomonas which she is currently being worked up by infectious disease at that facility. Today started having nausea and vomiting. [place] like she was dehydrated and came in to get IV fluids. She denies any hematemesis or fever. No significant abdominal pain. Currently since the surgery she is lost about 35 pounds and they are happy so far with the results. Physical Examination: Well-appearing young female. Vital signs are stable. Afebrile. She does not look septic or toxic. No acute distress. HEENT exam mildly dry mixed membranes. Neck nontender. Lungs clear to auscultation bilaterally. Heart regular rhythm no murmur. Abdomen soft. Nondistended. N ormal bowel sounds. No peritoneal signs. Ex lap incisions are dry and clean. No signs of obstruction. Moving all 4 extremities. No edema. Neurologically she is awake and alert. Back nontender. Test Results: Chemistry panel shows no acute abnormality. Normal creatinine and gap. Normal potassium. Emergency Department Course and Treatment: Patient treated with IV fluids and IV Zofran. Repeat exam at 1930 patient doing well. Nausea resolved. Abdomen benign. She is comfortable being discharged home. She has nausea medication at home. Treatment Plan: Plenty of fluids and rest. Increase diet slowly. Follow-up with her physicians. Disposition: Discharge Impression: Acute nausea, vomiting diarrhea Dehydration Status post gastric sleeve surgery This note was generated with [employer] software. It may contain incorrect words, spelling, and punctuation that were not noted in review of the chart prior to signing ED Disposition - Plan for ED Patient: Referrals: Shirlene George MD [Primary Care Provider] -
[2018-04-26] MEDS: Ondansetron 4 MG/2 ML Vial 8 MG IV (18:12)
[2018-04-26] MEDS: 0.9% Normal Saline 1,000 ML 1000 ML IV (18:12)
[2018-04-26 18:32] LABS: Anion Gap 7 (5-15); BUN 10 mg/dL (7-18); BUN/Creat Ratio 18.8 RATIO (10-20); Calcium,Total 8.6 mg/dL (8.5-10.1); Chloride 110 mmol/L (98-107); Creatinine, Serum 0.53 mg/dL (0.55-1.02); EST Glomerular Filtration Rate 139 mL/min (>60); Est Glom Filt Rate - Afr Amer 168 mL/min (>60); Estimated Creatinine Clearance 154.83 ml/min; Glucose 94 mg/dL (74-106); Sodium Level 140 mmol/L (136-145)
--- NOTE | 2018-04-26 19:31 | ED.DEP ---
ED Disposition - Plan for ED Patient: Disposition: Home or Assisted Living Instructions: ED Vomiting Diarrhea Nonspecific Ad Referrals: Shirlene George MD [Primary Care Provider] - As Needed Additional Instructions: Plenty of fluids and rest. Increase diet as tolerated. Zofran as needed for nausea. Follow-up E physicians if not improving.
[2018-04-26 19:46] VITALS: BP 116/71; PULSE 79; RESP 18; O2SAT 100
== END 2018-04-26 19:47 | disposition home or self-care (01) ==
PROVIDERS: Emergency Provider Emergency Medicine; Family Provider Internal Medicine; PCP Internal Medicine
DX: R11.2 Nausea with vomiting, unspecified (principal); R19.7 Diarrhea, unspecified; E86.0 Dehydration; Z98.84 Bariatric surgery status; I10 Essential (primary) hypertension; E11.9 Type 2 diabetes mellitus without complications; Z79.84 Long term (current) use of oral hypoglycemic drugs; Z79.899 Other long term (current) drug therapy
CPT/HCPCS: 80048; 96361; 96374; 99283; J7030; A4216; J2405

== ENCOUNTER 2018-06-28 20:27 | Observation (INO) | payer MEDICAID, SELFPAY ==
[2018-06-28 20:27] VITALS: BP 121/83; PULSE 104; RESP 18; TEMP 37.2; O2SAT 97; BMI 34.0
--- NOTE | 2018-06-28 21:10 | CT_ITS ---
STUDY: CT ABDOMEN AND PELVIS WITH CONTRAST REASON FOR EXAM: Female, 37 years old. Right upper quadrant pain RADIATION DOSAGE (If Supplied By Facility): CTDIvol = ( 16.64 ) mGy, DLP = ( 1285.66 ) mGycm TECHNIQUE: Transaxial images were obtained from the dome of the diaphragm to the symphysis pubis without oral contrast. 100 IV Isovue 300 was administered. Sagittal and coronal images were reconstructed. Individualized dose optimization techniques were used for this CT. COMPARISON: February 05, 2016 CT scan abdomen and pelvis FINDINGS: The visualized lung bases are unremarkable. The visualized portions of the heart are within normal limits. There is decreased attenuation of the liver consistent with steatosis. The gallbladder is distended. This is greater than prior study Normal spleen. Normal pancreas. Normal bilateral adrenal glands. Normal right kidney. Normal left kidney. There is postoperative change involving the stomach new since prior study. Normal small intestine. There is moderate stool in the colon. The appendix is visualized and appears normal. Normal abdominal aorta. Normal inferior vena cava. Normal retroperitoneum. Normal urinary bladder. There is an IUD within the uterus. There is superficial surgical clip. There is mild band of scarring in the right midline abdominal wall fat. There are diffuse degenerative changes of the visualized lumbar spine. There is postoperative change in the upper abdomen anterior to the stomach. CT/Abdomen/Pelvis W IV Cont ONLY IMPRESSION: Distended gallbladder. Mild hepatic steatosis. No evidence of appendicitis. Qqnt-ok-nrseqmxf constipation. IUD in the uterus. Electronically Signed: Carole Salinas MD at 23:30 EDT Tel , Service support ,
[2018-06-28] MEDS: fentaNYL 100 MCG/2 ML Ampul 50 MCG IV (21:38)
[2018-06-28] MEDS: Ondansetron 4 MG/2 ML Vial IV (21:38)
[2018-06-28] MEDS: 0.9% Normal Saline 1,000 ML 1000 ML IV (21:38)
[2018-06-28 21:57] LABS: Absolute Lymphocyte Count 3.34 X10^3/ul (0.83-4.51); Absolute Neutrophil Count 13.9 X10^3/uL (2.0-7.7); Basophil# 0.05 X10^3/uL; Basophil% 0.3 % (0-1); Eosinophils% 1.6 % (0-5); Hemoglobin 14.4 g/dl (12.0-15.0); Lymphocyte # 3.34 X10^3/ul (4.0); Lymphocyte % 18.1 % (19-41); Mean Corp Hgb Conc 34.3 g/gl (32-36); Mean Corpuscular Hgb 27.7 pg (27.0-32.0); Mean Corpuscular Volume 80.9 fL (81-99); Mean Platelet Vol. 9.4 fl (6.2-12.0); Monocyte# 0.83 X10^3/uL; Monocyte% 4.5 % (0-10); Neutrophil # 13.86 X10^3/uL (2.7-7.7); Neutrophil % 75.3 % (47-70); POSITIVE COUNT NO; POSITIVE DIFFERENTIAL NO; POSITIVE MORPHOLOGY NO; Platelet Count 379 K/mm3 (150-450); RBC Distribution Width CV 13.5 % (11.6-14.6); RBC Distribution Width SD 39.7 fl (35.1-43.9); Red Blood Count 5.19 M/mm3 (4.2-5.4); White Blood Count 18.4 K/mm3 (4.4-11.0)
[2018-06-28 22:06] LABS: Albumin, Serum 4.3 g/dL (3.2-5.0); BUN 13 mg/dL (7-18); BUN/Creat Ratio 19.4 RATIO (10-20); Creatinine, Serum 0.67 mg/dL (0.55-1.02); EST Glomerular Filtration Rate 106 mL/min (>60); Est Glom Filt Rate - Afr Amer 129 mL/min (>60); Estimated Creatinine Clearance 122.48 ml/min; Globulin 3.8 g/dL (2.2-4.2); Glucose 160 mg/dL (74-106); Protein, Total 8.1 g/dL (6.4-8.2)
[2018-06-28 22:07] LABS: ALB/GLOB Ratio 1.1 RATIO (0.9-2.4); AST(SGOT) 20 U/L (15-37); Alanine Aminotransfer ALT/SGPT 36 U/L (13-56); Alkaline Phosphatase 71 U/L (45-117); Anion Gap 7 (5-15); Calcium,Total 9.3 mg/dL (8.5-10.1); Chloride 107 mmol/L (98-107); Lipase 110 U/L (73-393); Potassium 4.2 mmol/L (3.5-5.1); Sodium Level 138 mmol/L (136-145)
[2018-06-28 22:18] LABS: Mucous, Urine 0 SEEN /hpf (<or=2+); Red Blood Cells-Urine 0 SEEN /hpf (0-5); White Blood Cells 0 SEEN /hpf (0-5)
[2018-06-28 22:30] LABS: Color, Urine Yellow (Yellow); Glucose, Dipstick Normal (Normal); Ketone-Dipstick 50 mg/dl (Negative); Leukocyte Esterase-Dipstick 25 /ul (Negative); Nitrite-Dipstick Negative (Negative); Occult Blood-Urine 10 /ul (Negative); Protein-Dipstick 30 mg/dl (Negative); Urine Bilirubin Dipstick Negative (Negative); Urine Clarity Sl. Cloudy (Clear); Urine Urobilinogen 1 mg/dl (Normal)
[2018-06-28 22:33] LABS: Internal QC Validated? YES +Cl - CLEAR BKGD; Pregnancy, Serum, hCG Quali. NEGATIVE Negative
[2018-06-28 22:38] LABS: Bacteria 1+ /hpf (None Seen); Squamous Epithelial Cells - UA 10-25 SEEN /hpf (5-10)
[2018-06-28 23:19] VITALS: BP 115/75; PULSE 86; RESP 16; TEMP 37.2; O2SAT 100
--- NOTE | 2018-06-28 23:54 | PCM.HP.STD ---
Problem List (1) Intractable abdominal pain Status: Acute (2) Type 2 diabetes mellitus Status: Chronic History of Present Illness Date of Admission: 06/29/18 Chief Complaint: abdominal pain The patient is a 37 year old F with a significant history of gastric sleeve surgery; asthma; hypotension with POTS; diabetes mellitus who presented with excruciating progressively worsening sharp right upper quadrant pain that started on the same day of presentation. Earlier on the same day of presentation and before her symptoms started, patient had a colonoscopy. The colonoscopy was done at [facility]. Patient reported a colonoscopy was done because of chronic diarrhea following a gastric sleeve placement. Reportedly the colonoscopy was unremarkable and patient was diagnosed with IBS. In regards to have a abdominal pain that brought her to the hospital, it worsens with movements and improves with less movements. Her pain radiates to her right flank. Fentanyl which she received at emergency department helped with her pain. She denies fever. However she reports chills. She reports that at baseline she is cold all the time but she thinks that she is more cold at this time. Further, she reports nausea. At emergency department patient was found to have leukocytosis of 18,400. CT of abdomen and pelvis showed distended gallbladder. Past Medical History Past Medical History (Chronic Problems): Chronic Problems History of pilonidal cyst (Chronic) chronic vertigo/dizziness (Chronic) Chronic low back pain (Chronic) Morbid obesity (Chronic) Type 2 diabetes mellitus (Chronic) Hyperlipidemia (Chronic) Gastroesophageal reflux disease (Chronic) Benign hypertension (Chronic) Allergies ciprofloxacin [From Cipro] Allergy (Verified 06/28/18 20:30) Anaphylaxis ciprofloxacin HCl [From Cipro] Allergy (Verified 06/28/18 20:30) Anaphylaxis Sulfa (Sulfonamide Antibiotics) Allergy (Verified 06/28/18 20:30) Shortness of breath tomato Allergy (Verified 06/28/18 20:30) Food Allergy wheat Allergy (Verified 06/28/18 20:30) Food Allergy adhesive Adverse Reaction (Verified 06/28/18 20:30) Other aspirin Adverse Reaction (Verified 06/28/18 20:30) Nausea/Vom/Diarrhea nickel Adverse Reaction (Verified 06/28/18 20:30) Rash Opioids - Morphine Analogues Adverse Reaction (Verified 06/28/18 20:30) Inflammation of vein sumatriptan [From Imitrex] Adverse Reaction (Verified 06/28/18 20:30) Vomiting sumatriptan succinate [From Imitrex] Adverse Reaction (Verified 06/28/18 20:30) Vomiting Home Medications: Ambulatory Orders Medication Instructions Recorded Acetaminophen/Butalbital/Caffe 1 tablet PO Q4H PRN PRN 06/07/13 [Fioricet] Enalapril Maleate [Vasotec] 5 mg PO QHS 06/07/13 Levalbuterol HCl [Xopenex Aerosols] 0.63 mg INHALATION Q6H PRN PRN 06/07/13 Levalbuterol Tartrate [Xopenex Hfa 2 puff INHALATION Q4H PRN PRN 06/07/13 Inhaler] Metformin(XR) [Glucophage Xr] 1,000 mg PO BID 06/07/13 Triamcinolone Acetonide [Nasacort 2 spray NASAL DAILY 06/07/13 Aq Nasal [place]] Levonorgestrel [Mirena] 1 each IY X1 02/05/16 Pantoprazole Sodium [Protonix] 40 mg PO DAILY PRN 02/05/16 Rosuvastatin Calcium [Crestor] 5 mg PO QHS 02/05/16 Montelukast [Singulair] 10 mg PO QHS 07/27/17 Ondansetron [Zofran Odt] 8 mg PO Q8H PRN PRN 04/26/18 Multivit-Min/Iron/Folic Acid/K 2 cap PO BID 06/29/18 [Bariatric Mv-Iron 45 mg Cap] Surgical History: - - Gastric sleeve surgery; nasal turbinates surgery with deviation of septum; cyst removed from eyelid. Balloon sinuplasty; pilonidal cyst removal from buttocks. Lives: Spouse/ Significant Other Smoking Status: Never smoker - *Family History Maternal History Items: Cancer - Colon, Diabetes Paternal History Items: - - Patient does not know about his paternal medical history. Review of Systems Constitutional: Denies: Chills, Fever, Weight Change HEENT: Denies: Head Aches, Sinus Congestion, Sinus Drainage Cardiovascular: Denies: Chest Pain, Palpitations Respiratory: Denies: Cough, Shortness of breath at rest, Sputum production Gastrointestinal: Reports: Abdominal Pain, Nausea. Denies: Vomiting Genitourinary: Denies: Dysuria Musculoskeletal: Reports: Back Pain - Right flank pain.. Denies: Joint Pain, Joint Tenderness Skin: Denies: Rash, Wounds Neurological: Denies: Numbness, Tingling, Focal weakness Psychiatric: Denies: Anxiety, Depression, Homicidal Ideations, Suicidal Ideations Hematologic/ Lymphatic: Denies: Easy Bruising, Easy Bleeding VTE Information - Inpt Only VTE Present on Admission: No VTE Mechan Device Prophylaxis: None VTE Pharm Prophylaxis ordered?: Yes Patient Problems: Active and Suspected Problems Intractable abdominal pain (Acute) - Physical Exam General: Alert, Oriented x3, Cooperative HEENT: Atraumatic, PERRLA, EOMI, Normocephalic Neck: Supple, No JVD, Negative Carotid Bruits Lungs: Clear to auscultation, Normal air movement Cardiovascular: Regular rate, No murmurs Abdomen: Bowel Sounds Present, Soft, Non Tender, Tender - Right upper quadrant. Extremities: No edema, Capillary Refill Less than 3 Seconds Skin: No rashes, No breakdown Musculoskeletal: No Tenderness to Palpation of Joints or Extremities Neurological: Cranial nerves II-XII grossly intact Psych/Mental Status: Normal Affect, Appropriate Vital Signs Temp Pulse Resp BP Pulse Ox 98.9 F 86 16 115/75 100 06/28/18 23:19 06/28/18 23:19 06/28/18 23:19 06/28/18 23:19 06/28/18 23:19 Oxygen Delivery Method Room Air Weight: 104.326 kg Body Mass Index (BMI) 34.0 Laboratory Tests Past 24 Hrs 06/28/18 06/28/18 06/28/18 21:35 21:35 21:35 WBC 18.4 H RBC 5.19 Hgb 14.4 Hct 42.0 MCV 80.9 L MCH 27.7 MCHC 34.3 RDW 13.5 RDW Differential 39.7 Plt Count 379 MPV 9.4 Immature Gran % (Auto) 0.200 Neut % (Auto) 75.3 H Lymph % (Auto) 18.1 L Reynolds % (Auto) 4.5 Eos % (Auto) 1.6 Baso % (Auto) 0.3 Absolute Neuts (auto) 13.9 H Absolute Lymphs (auto) 3.34 Total Counted Not Reportable Sodium 138 Potassium 4.2 Chloride 107 Carbon Dioxide 24.0 Anion Gap 7 BUN 13 Creatinine 0.67 Estim Creat Clear Calc 122.48 Est GFR (MDRD) Af Amer 129 Est GFR (MDRD) Non-Af 106 BUN/Creatinine Ratio 19.4 Glucose 160 H Calcium 9.3 Total Bilirubin 0.50 AST 20 ALT 36 Alkaline Phosphatase 71 Total Protein 8.1 Albumin 4.3 Globulin 3.8 Albumin/Globulin Ratio 1.1 Lipase 110 Serum , Qual NEGATIVE Urine Color Urine Clarity Urine pH Ur Specific [place] Urine Protein Urine Glucose (UA) Urine Ketones Urine Occult Blood Urine Nitrite Urine Bilirubin Urine Urobilinogen Ur Leukocyte Esterase Urine RBC Urine WBC Ur Squamous Epith Cells Urine Bacteria Urine Mucus 06/28/18 22:10 WBC RBC Hgb Hct MCV MCH MCHC RDW RDW Differential Plt Count MPV Immature Gran % (Auto) Neut % (Auto) Lymph % (Auto) Reynolds % (Auto) Eos % (Auto) Baso % (Auto) Absolute Neuts (auto) Absolute Lymphs (auto) Total Counted Sodium Potassium Chloride Carbon Dioxide Anion Gap BUN Creatinine Estim Creat Clear Calc Est GFR (MDRD) Af Amer Est GFR (MDRD) Non-Af BUN/Creatinine Ratio Glucose Calcium Total Bilirubin AST ALT Alkaline Phosphatase Total Protein Albumin Globulin Albumin/Globulin Ratio Lipase Serum , Qual Urine Color Yellow Urine Clarity Sl. Cloudy Urine pH 5.0 Ur Specific [place] 1.030 Urine Protein 30 H Urine Glucose (UA) Normal Urine Ketones 50 H Urine Occult Blood 10 H Urine Nitrite Negative Urine Bilirubin Negative Urine Urobilinogen 1 H Ur Leukocyte Esterase 25 H Urine RBC 0 SEEN Urine WBC 0 SEEN Ur Squamous Epith Cells 10-25 SEEN Urine Bacteria 1+ Urine Mucus 0 SEEN Assessment/Plan All Active Problems Intractable abdominal pain (Acute) The patient is a 37 year old F with a significant history of gastric sleeve surgery; asthma; hypotension with POTS; diabetes mellitus who presented with excruciating progressively worsening sharp right upper quadrant pain after a colonoscopy on the same day; and nausea; and found to have leukocytosis; distended gallbladder and probably chills. Intractable abdominal pain Initially patient thought that the pain was related to insufflation of a abdomen with colonoscopy. I agree with this thought as she had pain on the same day of colonoscopy. However because of leukocytosis and a probable chills will consider cholecystitis. Zosyn ordered. We will keep patient n.p.o. and gets an ultrasound in a.m. Supportive treatment with normal saline IV fluids; antiemetics with Zofran; and morphine IV for pain. Trend CBC and BMP. Diabetes mellitus On presentation her blood glucose was within goal. We will hold home metformin since it is too early in admission and moreover patient received IV dye for a CT scan. Notably her GFR was normal. While n.p.o., will check Accu-Chek every 6 hours and order low dose correction scale insulin. She reports taking Vasotec for renal protection and not hypertension; continue. Patient reports history of hypertension with POTS Chronic migraine Fioricet continued Allergies Singulair and Triamcinolone continued Asthma Xopenex continued History of bariatric surgery with gastric sleeve Multivitamins and Protonix continued. Hyperlipidemia Crestor continued. DVT Prophylaxis Subcutaneous heparin Code Visit OBSV E&M: 84048 Initial observation care L3
[2018-06-29] VITALS (9 sets, daily range): BP systolic 104–120; BP diastolic 58–75; PULSE 63–86; RESP 16–18; TEMP 36.3–37.3; O2SAT 94–100; BMI 33.5
--- NOTE | 2018-06-29 00:13 | ED.VISSUMM ---
- ER Visit Summary Date of Service: 06/29/18 Chief Complaint: Abdominal pain History of Present Illness: The patient is a 37 F with right upper quadrant abdominal pain. The pain started today after colonoscopy. She says that the colonoscopy went well. She did not have any biopsies that she is aware of. She said it was unremarkable and she was given the presumptive diagnosis of IBS. She has had some nausea and vomiting. Denies fevers or jaundice. Reports a history of reflux, diabetes, hypertension, hyperlipidemia, gastric bypass. Physical Examination: Afebrile and vital signs unremarkable except for heart rate of 104. The patient appears uncomfortable but not toxic or in distress. Heart mildly tachycardic but regular. Lungs clear. Right upper quadrant tender to palpation. No guarding or rebound. Skin appears normal in color without pallor or jaundice. Test Results: White count 18.4. Glucose 160. Hepatic panel and lipase normal. Urinalysis shows contamination. test negative. CT abdomen and pelvis showed distended gallbladder but no other associated findings. Hepatic steatosis noted and constipation noted. Emergency Department Course and Treatment: Patient was treated with IV fluids, Zofran, and fentanyl. CT was done to check for iatrogenic complications. This was unremarkable. She does have a distended gallbladder. There are no signs of cholecystitis otherwise. No gallstones. Hepatic panel normal. White count is elevated, but she says that it is always elevated. Her records indicate that it is typically between 12 and 15. Patient has required multiple doses of pain medicine. She does have continued abdominal tenderness especially in the right upper quadrant. Hospitalist was contacted for admission for further care due to to intractable pain. Treatment Plan: As above Disposition: Admission Impression: 1. Intractable right upper quadrant pain This note was generated with Secucloudation software. It may contain incorrect words, spelling, and punctuation that were not noted in review of the chart prior to signing ED Disposition - Plan for ED Patient: Referrals: Shirlene George MD [Primary Care Provider] -
[2018-06-29] MEDS: fentaNYL 100 MCG/2 ML Ampul 50 MCG IV (00:26)
[2018-06-29] MEDS: 0.9% Normal Saline 1,000 ML 75 ML IV (01:45)
--- NOTE | 2018-06-29 05:55 | US_ITS ---
We are attempting to reach ANALI VIAL to discuss findings. An addendum with communication details will be sent when the communication is complete. STUDY: ABDOMINAL ULTRASOUND - RIGHT UPPER QUADRANT REASON FOR VISIT: Female, 37 years old. Pain right upper quadrant pain TECHNIQUE: Ultrasound evaluation of the right upper quadrant was performed with real-time and static espinoza-scale imaging. TECHNICAL QUALITY: Adequate. COMPARISON: 2018 CT scan abdomen and pelvis FINDINGS: Liver: The liver measures 18.1 cm. There is increased echogenicity consistent with fatty infiltration. The bile ducts are within normal limits. There is hepatic color flow. The direction of portal flow is hepatopetal. There is no demonstrated mass lesion. Gallbladder: The gallbladder is quite distended. The gallbladder wall measures 3-5.7 mm. There is a positive sonographic Acharya's sign. There is pericholecystic fluid. There are numerous tiny and larger echogenic structures within the gallbladder, consistent with multiple gallstones. Common Bile Duct (C.B.D.): The common bile duct measures 6 mm. Pancreas: Not well-visualized. Right Kidney: Normal size of the right kidney. The right kidney measures 11.1 x 5.0 x 2.8 cm. Normal renal cortex. The right cortex measures 1.1 cm. There is no demonstrated renal mass or cyst. There is no right hydronephrosis. US/Gallbladder IMPRESSION: Distended gallbladder, wall thickening, and trace pericholecystic fluid distended common duct positive sonographic Acharya sign is suspicious for acute cholecystitis. Electronically Signed: Carole Salinas MD at 8:58 EDT Tel , Service support ,
[2018-06-29] MEDS: Heparin Injection (Vial) 5,000 UNIT/ML VIAL 5000 UNIT SC ×2 (06:22→21:50)
[2018-06-29 06:45] LABS: Absolute Lymphocyte Count 3.88 X10^3/ul (0.83-4.51); Absolute Neutrophil Count 5.9 X10^3/uL (2.0-7.7); Basophil# 0.03 X10^3/uL; Basophil% 0.3 % (0-1); Eosinophil# 0.34 X10^3/uL; Eosinophils% 3.2 % (0-5); Hematocrit 35.9 % (37-47); Hemoglobin 11.9 g/dl (12.0-15.0); Lymphocyte # 3.88 X10^3/ul (4.0); Lymphocyte % 36.3 % (19-41); Mean Corp Hgb Conc 33.1 g/gl (32-36); Mean Corpuscular Hgb 27.1 pg (27.0-32.0); Mean Corpuscular Volume 81.8 fL (81-99); Monocyte# 0.56 X10^3/uL; Monocyte% 5.2 % (0-10); Neutrophil # 5.88 X10^3/uL (2.7-7.7); Neutrophil % 54.9 % (47-70); Platelet Count 328 K/mm3 (150-450); RBC Distribution Width CV 13.5 % (11.6-14.6); RBC Distribution Width SD 40.5 fl (35.1-43.9); Red Blood Count 4.39 M/mm3 (4.2-5.4); White Blood Count 10.7 K/mm3 (4.4-11.0)
[2018-06-29 06:57] LABS: POSITIVE COUNT NO; POSITIVE DIFFERENTIAL NO; POSITIVE MORPHOLOGY NO
[2018-06-29 06:58] LABS: Anion Gap 6 (5-15); BUN 10 mg/dL (7-18); BUN/Creat Ratio 16.5 RATIO (10-20); Calcium,Total 8.3 mg/dL (8.5-10.1); Chloride 112 mmol/L (98-107); Creatinine, Serum 0.61 mg/dL (0.55-1.02); EST Glomerular Filtration Rate 119 mL/min (>60); Est Glom Filt Rate - Afr Amer 144 mL/min (>60); Estimated Creatinine Clearance 129.85 ml/min; Glucose 103 mg/dL (74-106); Potassium 3.7 mmol/L (3.5-5.1); Sodium Level 141 mmol/L (136-145)
--- NOTE | 2018-06-29 09:12 | NURSING ---
NOTIFIED DR TAYLOR THAT US SHOWED ACUTE CHOLECYSTITIS CONSULT FOR DR NEO BOSWELL AND NOTIFIED DR LARSON OF CONSULT
[2018-06-29] MEDS: 0.9% NaCl Peripheral Flush Adult/Peds IV ×2 (09:31→14:23)
[2018-06-29] MEDS: Multivitamins,Ther W-Minerals Tablet 1 TABLET PO ×2 (09:36→17:17)
[2018-06-29] MEDS: Fluticasone 0.05% 1 SPRAY NASAL.SRY 2 SPRAY NASAL (09:36)
[2018-06-29] MEDS: 0.9% Normal Saline 1,000 ML 100 ML IV ×2 (09:39→20:42)
[2018-06-29 09:42] LABS: Bedside Glucose 108 mg/dL (70-110)
--- NOTE | 2018-06-29 11:37 | PCM.CONS.B ---
- Consult Date of Consult: 06/29/18 - Reason for Consult Chief Complaint: abdominal pain History of Present Illness: 37 y/o WF s/p gastric sleeve bariatric surgery in February at [facility] near [place], [place]. Had postoperative difficulties with diarrhea and underwent extensive workup with Infectious Diseases that culminated in colonoscopy yesterday. She states that she was on ursodiol but was recently taken off it by her surgeon. Developed abdominal pain and presented to [facility] ED. Has nausea, severe sharp abdominal pain, also had chills. Diarrhea as above, denies blood in stools. Initial WBC was 18.4k, this morning it is now 10.7K with no shift of differential. LFTs normal. Gallbladder ultrasound - gallbladder is distended, with pericholecystic fluid and multiple gallstones She still complains of significant right upper quadrant abdominal pain. Has lost 50# since bariatric surgery Has not had bowel movement since colonoscopy. Past Medical History: diabetes GERD hypertension Past Surgical History: pilonidal cyst surgery x 2 eye surgery nasal surgery sleeve gastrectomy bariatric surgery colonoscopy Medications: firoricet vasotec levalbuterol metformin protonix crestor singulair zofran MVI Allergies: cipro, sulfa, aspirin, morphine, imitrex Social history: TOB use denies ETOH use minimal, occasional social only Review of Systems Constitutional: Denies: Chills, Fever, Weight Change HEENT: Denies: Head Aches, Sinus Congestion, Sinus Drainage Cardiovascular: Denies: Chest Pain, Palpitations Respiratory: Denies: Cough, Shortness of breath at rest, Sputum production Gastrointestinal: see HPI Genitourinary: denies blood in urine Musculoskeletal: Reports: Back Pain - Right flank pain.. Denies: Joint Pain, Joint Tenderness Skin: denies non healing wounds Neurological: Denies: Numbness, Tingling, Focal weakness Psychiatric: Denies: Anxiety, Depression, Homicidal Ideations, Suicidal Ideations Hematologic/ Lymphatic: Denies: Easy Bruising, Easy Bleeding Physical examination: Vital signs Temp 97.4F HR 84 BP 120/70 RR 16 General WD/WN WF in no apparent distress, alert and oriented, not septic appearing HEENT Normocephalic. EOM intact with sclera clear and no icterus noted. Wearing glasses. Neck is supple with no jugular venous distention noted. Trachea is midline. Lungs no labored breathing noted, such as retractions. No cough heard. Heart regular. Abdomen soft and obese, tender in right upper quadrant, difficult to determine if any masses or organomegaly due to body habitus Extremities no pitting edema noted. Genitourinary/Rectal deferred Skin normal skin integrity. Neurological non focal Psychological normal affect, patient is calm and appropriate Impression: cholelithiasis, acute cholecystitis Discussion/Plan: I have discussed the above with the patient and her who is present with her. Given her recent bariatric surgery and that she has had problems with this, I would recommend that patient have gallbladder surgery at [facility] versus [facility]. Continue IV antibiotics. Will advance to clear liquid diet. Will restart ursodiol as per patient's request. If patient still with pain on Sunday, she can contact her surgeon for consideration of gallbladder surgery at [facility], or transfer patient to [facility]. I have answered all questions to the patient?s satisfaction and the patient has no further questions.
--- NOTE | 2018-06-29 11:56 | CON.PCM_ITS ---
- Consult Date of Consult: 06/29/18 - Reason for Consult Chief Complaint: abdominal pain History of Present Illness: 37 y/o WF s/p gastric sleeve bariatric surgery in February at [facility] near [place], [place]. Had postoperative difficulties with diarrhea and underwent extensive workup with Infectious Diseases that culminated in colonoscopy yesterday. She states that she was on ursodiol but was recently taken off it by her surgeon. Developed abdominal pain and presented to [facility] ED. Has nausea, severe sharp abdominal pain, also had chills. Diarrhea as above, denies blood in stools. Initial WBC was 18.4k, this morning it is now 10.7K with no shift of differentia l. LFTs normal. Gallbladder ultrasound - gallbladder is distended, with pericholecystic fluid and multiple gallstones She still complains of significant right upper quadrant abdominal pain. Has lost 50# since bariatric surgery Has not had bowel movement since colonoscopy. Past Medical History: diabetes GERD hypertension Past Surgical History: pilonidal cyst surgery x 2 eye surgery nasal surgery sleeve gastrectomy bariatric surgery colonoscopy Medications: firoricet vasotec levalbuterol metformin protonix crestor singulair zofran MVI Allergies: cipro, sulfa, aspirin, morphine, imitrex Social history: TOB use denies ETOH use minimal, occasional social only Review of Systems Constitutional: Denies: Chills, Fever, Weight Change HEENT: Denies: Head Aches, Sinus Congestion, Sinus Drainage Cardiovascular: Denies: Chest Pain, Palpitations Respiratory: Denies: Cough, Shortness of breath at rest, Sputum production Gastrointestinal: see HPI Genitourinary: denies blood in urine Musculoskeletal: Reports: Back Pain - Right flank pain.. Denies: Joint Pain, Joint Tenderness Skin: denies non healing wounds Neurological: Denies: Numbness, Tingling, Focal weakness Psychiatric: Denies: Anxiety, Depression, Homicidal Ideations, Suicidal Ideations Hematologic/ Lymphatic: Denies: Easy Bruising, Easy Bleeding Physical examination: Vital signs Temp 97.4F HR 84 BP 120/70 RR 16 General WD/WN WF in no apparent distress, alert and oriented, not septic appearing HEENT Normocephalic. EOM intact with sclera clear and no icterus noted. Wearing glasses. Neck is supple with no jugular venous distention noted. Trachea is midline. Lungs no labored breathing noted, such as retractions. No cough heard. Heart regular. Abdomen soft and obese, tender in right upper quadrant, difficult to determine if any masses or organomegaly due to body habitus Extremities no pitting edema noted. Genitourinary/Rectal deferred Skin normal skin integrity. Neurological non focal Psychological normal affect, patient is calm and appropriate Impression: cholelithiasis, acute cholecystitis Discussion/Plan: I have discussed the above with the patient and her who is present with her. Given her recent bariatric surgery and that she has had problems with this, I would recommend that patient have gallbladder surgery at [facility] versus [facility]. Continue IV antibiotics. Will advance to clear liquid diet. Will restart ursodiol as per patient's request. If patient still with pain on Sunday, she can contact her surgeon for consideration of gallbladder surgery at [facility], or transfer patient to [facility]. I have answered all questions to the patient?s satisfaction and the patient has no further questions.
--- NOTE | 2018-06-29 11:57 | PCM.PN.HOSP ---
Patient Problems: Active and Suspected Problems Intractable abdominal pain (Acute) Subjective: Patient was seen and examined. Admitted last night with intractable abdominal pain. Complains of some slight nausea and uncontrolled pain. Denies any fever or chills. Denies any dizziness or chest pain. Objective: Physical Exam General: Alert, Oriented x3, Cooperative, appears unwell HEENT: Atraumatic, PERRLA, EOMI, Normocephalic Neck: Supple, No JVD, Negative Carotid Bruits Lungs: Clear to auscultation, Normal air movement Cardiovascular: Regular rate, No murmurs Abdomen: Bowel Sounds Present, Soft, Non Tender, Tender - Right upper quadrant. Extremities: No edema, Capillary Refill Less than 3 Seconds Skin: No rashes, No breakdown Musculoskeletal: No Tenderness to Palpation of Joints or Extremities Neurological: Cranial nerves II-XII grossly intact Psych/Mental Status: Normal Affect, Appropriate Vitals/I&O's: Vital Signs Temp Pulse Resp BP Pulse Ox 98.2 F 65 18 106/58 L 100 06/29/18 11:48 06/29/18 11:48 06/29/18 11:48 06/29/18 11:48 06/29/18 11:48 Oxygen Delivery Method Room Air Weight: 102.5 kg Body Mass Index (BMI) 33.5 Intake and Output for Last 24 Hours 06/27/18 06/28/18 06/29/18 23:59 23:59 23:59 Intake Total 789 / 789 Output Total 300 / 300 Balance 489 / 489 Laboratory Results 06/28/18 21:35: WBC 18.4 H, RBC 5.19, Hgb 14.4, Hct 42.0, MCV 80.9 L, MCH 27.7, MCHC 34.3, RDW 13.5, RDW Differential 39.7, Plt Count 379, MPV 9.4, Immature Gran % (Auto) 0.200, Neut % (Auto) 75.3 H, Lymph % (Auto) 18.1 L, [place] % (Auto) 4.5, Eos % (Auto) 1.6, Baso % (Auto) 0.3, Absolute Neuts (auto) 13.9 H, Absolute Lymphs (auto) 3.34, Total Counted Not Reportable 06/28/18 21:35: Sodium 138, Potassium 4.2, Chloride 107, Carbon Dioxide 24.0, Anion Gap 7, BUN 13, Creatinine 0.67, Estim Creat Clear Calc 122.48, Est GFR (MDRD) Af Amer 129, Est GFR (MDRD) Non-Af 106, BUN/Creatinine Ratio 19.4, Glucose 160 H, Calcium 9.3, Total Bilirubin 0.50, AST 20, ALT 36, Alkaline Phosphatase 71, Total Protein 8.1, Albumin 4.3, Globulin 3.8, Albumin/Globulin Ratio 1.1, Lipase 110 06/28/18 21:35: Serum , Qual NEGATIVE 06/28/18 22:10: Urine Color Yellow, Urine Clarity Sl. Cloudy, Urine pH 5.0, Ur Specific [place] 1.030, Urine Protein 30 H, Urine Glucose (UA) Normal, Urine Ketones 50 H, Urine Occult Blood 10 H, Urine Nitrite Negative, Urine Bilirubin Negative, Urine Urobilinogen 1 H, Ur Leukocyte Esterase 25 H, Urine RBC 0 SEEN, Urine WBC 0 SEEN, Ur Squamous Epith Cells 10-25 SEEN, Urine Bacteria 1+, Urine Mucus 0 SEEN 06/29/18 06:25: WBC 10.7, RBC 4.39, Hgb 11.9 L, Hct 35.9 L, MCV 81.8, MCH 27.1, MCHC 33.1, RDW 13.5, RDW Differential 40.5, Plt Count 328, MPV 9.0, Immature Gran % (Auto) 0.100, Neut % (Auto) 54.9, Lymph % (Auto) 36.3, [place] % (Auto) 5.2, Eos % (Auto) 3.2, Baso % (Auto) 0.3, Absolute Neuts (auto) 5.9, Absolute Lymphs (auto) 3.88, Total Counted Not Reportable 06/29/18 06:25: Sodium 141, Potassium 3.7, Chloride 112 H, Carbon Dioxide 23.0, Anion Gap 6, BUN 10, Creatinine 0.61, Estim Creat Clear Calc 129.85, Est GFR (MDRD) Af Amer 144, Est GFR (MDRD) Non-Af 119, BUN/Creatinine Ratio 16.5, Glucose 103, Calcium 8.3 L 06/29/18 06:49: POC Glucose 108 Current Medications Acetaminophen (Tylenol) 650 mg PO Q6H PRN PRN PRN Reason: Mild Pain (1-3)/Temp > 100.7 F Acetaminophen/Butalbital/Caffeine (Fioricet) 1 tablet PO Q4H PRN PRN PRN Reason: HEADACHE Albuterol Sulfate (Ventolin Aerosols) 2.5 mg INHALATION Q6H PRN PRN PRN Reason: WHEEZING Albuterol Sulfate (Ventolin Aerosols) 2.5 mg INHALATION Q6HWA.RT [facility] Last Admin: 06/29/18 07:05 Dose: Not Given Atorvastatin Calcium (Lipitor) 10 mg PO QHS [facility] Dextrose (D50w Syringe) 0 gm IV X1 PRN; Protocol PRN Reason: Hypoglycemia Fluticasone Propionate (Flonase Nasal [place]) 2 spray NASAL DAILY [facility] Last Admin: 06/29/18 09:36 Dose: 2 spray Glucagon () 1 mg IM .X1 PRN PRN Reason: Hypoglycemia Heparin Sodium (Porcine) (Heparin Na) 5,000 unit SC Q8 [facility] Last Admin: 06/29/18 06:22 Dose: 5,000 unit Piperacillin Sod/Tazobactam (Sod 3.375 gm/ Sodium Chloride) 50 mls @ 12.5 mls/hr IV Q8 [facility] Sodium Chloride () 1,000 mls @ 100 mls/hr IV .Q10H [facility] Stop: 06/30/18 08:59 Last Admin: 06/29/18 09:39 Dose: 100 mls/hr Insulin Human Lispro (Humalog Kwikpen (Bkc)) 0 unit SQ Q6 [facility]; Protocol Last Admin: 06/29/18 11:54 Dose: Not Given Lisinopril (Zestril) 5 mg PO QHS [facility] Montelukast Sodium (Singulair) 10 mg PO QHS [facility] Morphine Sulfate () 2 mg IV Q3H PRN PRN PRN Reason: Severe pain (7-10/10) Multivitamins/Minerals (Multivitamin With Minerals) 1 tablet PO BIDCM [facility] Last Admin: 06/29/18 09:36 Dose: 1 tablet Ondansetron HCl (Zofran) 4 mg IV Q6H PRN PRN PRN Reason: NAUSEA/VOMITING Pantoprazole Sodium (Protonix) 40 mg PO DAILY PRN PRN Reason: REFLUX Sodium Chloride () 5 - 15 ml IV UD PRN PRN Reason: SALINE FLUSH Last Admin: 06/29/18 09:31 Dose: 10 ml Medical Necessity - Tobacco Use Smoking Status: Never smoker Assessment/Plan All Active Problems Intractable abdominal pain (Acute) 37-year-old female past medical history of bariatric surgery status post gastric sleeve surgery, history of type II DM, history of hypotension/POTS who comes in with intractable abdominal pain status post colonoscopy done on the day of admission 1. Abdominal pain secondary to acute cholecystitis, remains afebrile, white cell count has improved Started on IV Zosyn, will continue same, general surgery consulted Discussed with general surgery, patient should be transferred back to [facility] possibly tomorrow or Sunday. 2. Type II DM, off metformin, continue to monitor on Accu-Cheks with insulin sliding scale. 3. History of bariatric surgery status post gastric sleeve 4. Hyperlipidemia, on statin 5. DVT PPx- Heparin SC Code Visit Inpatient E&M: 68087 Subs Hosp L2
--- NOTE | 2018-06-29 12:05 | PN_ITS ---
Patient Problems: Active and Suspected Problems Intractable abdominal pain (Acute) Subjective: Patient was seen and examined. Admitted last night with intractable abdominal pain. Complains of some slight nausea and uncontrolled pain. Denies any fever or chills. Denies any dizziness or chest pain. Objective: Physical Exam General: Alert, Oriented x3, Cooperative, appears unwell HEENT: Atraumatic, PERRLA, EOMI, Normocephalic Neck: Supple, No JVD, Negative Carotid Bruits Lungs: Clear to auscultation, Normal air movement Cardiovascular: Regular rate, No murmurs Abdomen: Bowel Sounds Present, Soft, Non Tender, Tender - Right upper quadrant. Extremities: No edema, Capillary Refill Less than 3 Seconds Skin: No rashes, No breakdown Musculoskeletal: No Tenderness to Palpation of Joints or Extremities Neurological: Cranial nerves II-XII grossly intact Psych/Mental Status: Normal Affect, Appropriate Vitals/I&O's: Vital Signs Temp Pulse Resp BP Pulse Ox 98.2 F 65 18 106/58 L 100 06/29/18 11:48 06/29/18 11:48 06/29/18 11:48 06/29/18 11:48 06/29/18 11:48 Oxygen Delivery Method Room Air Weight: 102.5 kg Body Mass Index (BMI) 33.5 Intake and Output for Last 24 Hours 06/27/18 06/28/18 06/29/18 23:59 23:59 23:59 Intake Total 789 / 789 Output Total 300 / 300 Balance 489 / 489 Laboratory Results 06/28/18 21:35: WBC 18.4 H, RBC 5.19, Hgb 14.4, Hct 42.0, MCV 80.9 L, MCH 27.7, MCHC 34.3, RDW 13.5, RDW Differential 39.7, Plt Count 379, MPV 9.4, Immature Gran % (Auto) 0.200, Neut % (Auto) 75.3 H, Lymph % (Auto) 18.1 L, [place] % (Auto) 4.5, Eos % (Auto) 1.6, Baso % (Auto) 0.3, Absolute Neuts (auto) 13.9 H, Absolute Lymphs (auto) 3.34, Total Counted Not Reportable 06/28/18 21:35: Sodium 138, Potassium 4.2, Chloride 107, Carbon Dioxide 24.0, Anion Gap 7, BUN 13, Creatinine 0.67, Estim Creat Clear Calc 122.48, Est GFR (MDRD) Af Amer 129, Est GFR (MDRD) Non-Af 106, BUN/Creatinine Ratio 19.4, Glucose 160 H, Calcium 9.3, Total Bilirubin 0.50, AST 20, ALT 36, Alkaline Phosphatase 71, Total Protein 8.1, Albumin 4.3, Globulin 3.8, Albumin/Globulin Ratio 1.1, Lipase 110 06/28/18 21:35: Serum , Qual NEGATIVE 06/28/18 22:10: Urine Color Yellow, Urine Clarity Sl. Cloudy, Urine pH 5.0, Ur Specific [place] 1.030, Urine Protein 30 H, Urine Glucose (UA) Normal, Urine Ketones 50 H, Urine Occult Blood 10 H, Urine Nitrite Negative, Urine Bilirubin Negative, Urine Urobilinogen 1 H, Ur Leukocyte Esterase 25 H, Urine RBC 0 SEEN, Urine WBC 0 SEEN, Ur Squamous Epith Cells 10-25 SEEN, Urine Bacteria 1+, Urine Mucus 0 SEEN 06/29/18 06:25: WBC 10.7, RBC 4.39, Hgb 11.9 L, Hct 35.9 L, MCV 81.8, MCH 27.1, MCHC 33.1, RDW 13.5, RDW Differential 40.5, Plt Count 328, MPV 9.0, Immature Gran % (Auto) 0.100, Neut % (Auto) 54.9, Lymph % (Auto) 36.3, [place] % (Auto) 5.2, Eos % (Auto) 3.2, Baso % (Auto) 0.3, Absolute Neuts (auto) 5.9, Absolute Lymphs (auto) 3.88, Total Counted Not Reportable 06/29/18 06:25: Sodium 141, Potassium 3.7, Chloride 112 H, Carbon Dioxide 23.0, Anion Gap 6, BUN 10, Creatinine 0.61, Estim Creat Clear Calc 129.85, Est GFR (MDRD) Af Amer 144, Est GFR (MDRD) Non-Af 119, BUN/Creatinine Ratio 16.5, Glucose 103, Calcium 8.3 L 06/29/18 06:49: POC Glucose 108 Current Medications Acetaminophen (Tylenol) 650 mg PO Q6H PRN PRN PRN Reason: Mild Pain (1-3)/Temp > 100.7 F Acetaminophen/Butalbital/Caffeine (Fioricet) 1 tablet PO Q4H PRN PRN PRN Reason: HEADACHE Albuterol Sulfate (Ventolin Aerosols) 2.5 mg INHALATION Q6H PRN PRN PRN Reason: WHEEZING Albuterol Sulfate (Ventolin Aerosols) 2.5 mg INHALATION Q6HWA.RT [facility] Last Admin: 06/29/18 07:05 Dose: Not Given Atorvastatin Calcium (Lipitor) 10 mg PO QHS [facility] Dextrose (D50w Syringe) 0 gm IV X1 PRN; Protocol PRN Reason: Hypoglycemia Fluticasone Propionate (Flonase Nasal [place]) 2 spray NASAL DAILY [facility] Last Admin: 06/29/18 09:36 Dose: 2 spray Glucagon () 1 mg IM .X1 PRN PRN Reason: Hypoglycemia Heparin Sodium (Porcine) (Heparin Na) 5,000 unit SC Q8 [facility] Last Admin: 06/29/18 06:22 Dose: 5,000 unit Piperacillin Sod/Tazobactam (Sod 3.375 gm/ Sodium Chloride) 50 mls @ 12.5 mls/hr IV Q8 [facility] Sodium Chloride () 1,000 mls @ 100 mls/hr IV .Q10H [facility] Stop: 06/30/18 08:59 Last Admin: 06/29/18 09:39 Dose: 100 mls/hr Insulin Human Lispro (Humalog Kwikpen (Bkc)) 0 unit SQ Q6 [facility]; Protocol Last Admin: 06/29/18 11:54 Dose: Not Given Lisinopril (Zestril) 5 mg PO QHS [facility] Montelukast Sodium (Singulair) 10 mg PO QHS [facility] Morphine Sulfate () 2 mg IV Q3H PRN PRN PRN Reason: Severe pain (7-10/10) Multivitamins/Minerals (Multivitamin With Minerals) 1 tablet PO BIDCM [facility] Last Admin: 06/29/18 09:36 Dose: 1 tablet Ondansetron HCl (Zofran) 4 mg IV Q6H PRN PRN PRN Reason: NAUSEA/VOMITING Pantoprazole Sodium (Protonix) 40 mg PO DAILY PRN PRN Reason: REFLUX Sodium Chloride () 5 - 15 ml IV UD PRN PRN Reason: SALINE FLUSH Last Admin: 06/29/18 09:31 Dose: 10 ml Medical Necessity - Tobacco Use Smoking Status: Never smoker Assessment/Plan All Active Problems Intractable abdominal pain (Acute) 37-year-old female past medical history of bariatric surgery status post gastric sleeve surgery, history of type II DM, history of hypotension/POTS who comes in with intractable abdominal pain status post colonoscopy done on the day of admission 1. Abdominal pain secondary to acute cholecystitis, remains afebrile, white cell count has improved Started on IV Zosyn, will continue same, general surgery consulted Discussed with general surgery, patient should be transferred back to [facility] possibly tomorrow or Sunday. 2. Type II DM, off metformin, continue to monitor on Accu-Cheks with insulin sliding scale. 3. History of bariatric surgery status post gastric sleeve 4. Hyperlipidemia, on statin 5. DVT PPx- Heparin SC Code Visit Inpatient E&M: 56542 Subs Hosp L2
[2018-06-29 12:06] LABS: Bedside Glucose 105 mg/dL (70-110)
[2018-06-29] MEDS: Ursodiol 250 MG Tablet PO (14:23)
[2018-06-29 16:51] LABS: Bedside Glucose 133 mg/dL (70-110)
[2018-06-29] MEDS: Acetaminophen 325 MG Tablet 650 MG PO (20:46)
[2018-06-29] MEDS: Montelukast 10 MG Tablet PO (21:49)
[2018-06-30 00:16] LABS: Bedside Glucose 91 mg/dL (70-110)
[2018-06-30 02:15] VITALS: BP 91/57; PULSE 74; RESP 14; TEMP 36.9; O2SAT 97
[2018-06-30] MEDS: Heparin Injection (Vial) 5,000 UNIT/ML VIAL 5000 UNIT SC ×2 (05:42→14:37)
[2018-06-30 06:01] LABS: Bedside Glucose 85 mg/dL (70-110)
[2018-06-30 06:57] VITALS: O2SAT 94
[2018-06-30 08:15] VITALS: BP 103/63; PULSE 70; RESP 16; TEMP 37.2; O2SAT 98
[2018-06-30] MEDS: Ursodiol 250 MG Tablet PO ×3 (08:23→17:16)
[2018-06-30] MEDS: Multivitamins,Ther W-Minerals Tablet 1 TABLET PO ×2 (08:23→17:16)
--- NOTE | 2018-06-30 08:56 | PCM.DC ---
- Discharge Diagnoses Current Active Problems: Current Active and Chronic Problems Intractable abdominal pain (Acute) Reason(s) for Visit for Discharge Instructions: Abdominal pain You will use the following diet at home:: Clear liquid Your food should be the consistency of: Regular Your liquids should be the consistency of: Regular/Thin Discharge Activity: Return to Normal Activity Allergies/Adverse Reactions: Allergies ciprofloxacin [From Cipro] Allergy (Verified 06/28/18 20:30) Anaphylaxis ciprofloxacin HCl [From Cipro] Allergy (Verified 06/28/18 20:30) Anaphylaxis Sulfa (Sulfonamide Antibiotics) Allergy (Verified 06/28/18 20:30) Shortness of breath tomato Allergy (Verified 06/28/18 20:30) Food Allergy wheat Allergy (Verified 06/28/18 20:30) Food Allergy adhesive Adverse Reaction (Verified 06/28/18 20:30) Other aspirin Adverse Reaction (Verified 06/28/18 20:30) Nausea/Vom/Diarrhea nickel Adverse Reaction (Verified 06/28/18 20:30) Rash Opioids - Morphine Analogues Adverse Reaction (Verified 06/28/18 20:30) Inflammation of vein sumatriptan [From Imitrex] Adverse Reaction (Verified 06/28/18 20:30) Vomiting sumatriptan succinate [From Imitrex] Adverse Reaction (Verified 06/28/18 20:30) Vomiting Medications to take at Discharge Acetaminophen/Butalbital/Caffe [Fioricet] 1 tablet PO Q4H PRN PRN 06/07/13 Enalapril Maleate [Vasotec] 5 mg PO QHS 06/07/13 Levalbuterol HCl [Xopenex Aerosols] 0.63 mg INHALATION Q6H PRN PRN 06/07/13 Levalbuterol Tartrate [Xopenex Hfa Inhaler] 2 puff INHALATION Q4H PRN PRN 06/07/13 Metformin(XR) [Glucophage Xr] 1,000 mg PO BID 06/07/13 Triamcinolone Acetonide [Nasacort Aq Nasal [place]] 2 spray NASAL DAILY 06/07/13 Levonorgestrel [Mirena] 1 each IY X1 02/05/16 Pantoprazole Sodium [Protonix] 40 mg PO DAILY PRN 02/05/16 Rosuvastatin Calcium [Crestor] 5 mg PO QHS 02/05/16 Montelukast [Singulair] 10 mg PO QHS 07/27/17 Ondansetron [Zofran Odt] 8 mg PO Q8H PRN PRN 04/26/18 Fluvoxamine Maleate 25 mg PO DAILY 06/29/18 Multivit-Min/Iron/Folic Acid/K [Bariatric Mv-Iron 45 mg Cap] 2 cap PO BID 06/29/18 Primary Care Physician: Shirlene George MD [Primary Care Provider] - Test Results: Test results from this visit will be discussed in further detail at your follow-up appointment, if applicable. Proposed Discharge Date: 06/30/18
--- NOTE | 2018-06-30 08:58 | DS.PCM_ITS ---
Discharge Date and Diagnosis - Problem List Patient Problems: Active and Suspected Problems Intractable abdominal pain (Acute) Date of Admission: 06/29/18 Date of Discharge: 06/30/18 - Primary Discharge Diagnosis Active and Suspected Problems Intractable abdominal pain (Acute) Acute cholecystitis - Secondary Discharge Diagnosis Chronic Problems History of pilonidal cyst (Chronic) chronic vertigo/dizziness (Chronic) Chronic low back pain (Chronic) Morbid obesity (Chronic) Type 2 diabetes mellitus (Chronic) Hyperlipidemia (Chronic) Gastroesophageal reflux disease (Chronic) Benign hypertension (Chronic) Hospital Course and Treatment Imaging Results: Clinical Impression(s) from Imaging Studies Abdomen/Pelvis CT 06/28/18 21:10 IMPRESSION: Distended gallbladder. Mild hepatic steatosis. No evidence of appendicitis. [id number] constipation. IUD in the uterus. Electronically Signed: Carole Salinas MD at 23:30 EDT Tel , Service support , Gallbladder Ultrasound 06/29/18 05:55 IMPRESSION: Distended gallbladder, wall thickening, and trace pericholecystic fluid distended common duct positive sonographic Acharya sign is suspicious for acute cholecystitis. Electronically Signed: Carole Salinas MD at 8:58 EDT Tel , Service support , ADDENDUM: 06/29/18 0913 IMPRESSION: Distended gallbladder, wall thickening, and trace pericholecystic fluid distended common duct positive sonographic Acharya sign is suspicious for acute cholecystitis. N.B. : The above information has been verbally conveyed by Carole Salinas MD to Saira Posada RN, on 06/29/2018 09:06:46 (ET). Electronically Signed: Carole Salinas MD at 8:58 EDT Tel , Service support , General surgery Operations: None Procedures: None Summary of Care Provided: The patient is a 37 year old F with past medical history of bariatric surgery and to brachial gastric sleeve in February 2018, history of type II DM who presents with worsening abdominal pain. She had colonoscopy done on 06/28/18 for chronic diarrhea. Patient subsequently had intractable abdominal pain, worse with movements radiating to her right flank. She denied any fever or chills. She was brought to the [facility] emergency department. Her vitals were stable. Her white cell count was 18,400. CT of the abdominal pelvis showed distended gallbladder, mild hepatic steatosis, mild to moderate constipation. Patient was admitted to the regular floor, started on IV fluids, IV antibiotics. She was seen by general surgery, who recommended transfer back to her primary surgeons. Patient's white cell count had resolved at the time of admission. Patient was accepted by the general surgery team and will be transferred to [facility]. Patient Problems: Active and Suspected Problems Intractable abdominal pain (Acute) Subjective: The day of discharge, she feels improved, her pain was 2 out of 10. No fevers or chills. She has been passing gas. No bowel movements yet. - Physical Exam General: Alert, Oriented x3, Cooperative, No apparent distress HEENT: Atraumatic, PERRLA, EOMI, Normocephalic Oral: Moist Mucosa Neck: Supple Lungs: Clear to auscultation, Normal air movement Cardiovascular: Regular rate, Regular Rhythm, Normal S1, Normal S2, No murmurs Abdomen: Bowel Sounds Present, Soft, Non-Distended, No Hepato-splenomegaly, Tender - Right upper quadrant tenderness, with guarding, bowel sounds present Extremities: No edema Skin: No rashes, No breakdown Musculoskeletal: No Tenderness to Palpation of Joints or Extremities Neurological: Cranial nerves II-XII grossly intact Psych/Mental Status: Normal Affect, Appropriate Vital Signs Temp Pulse Resp BP Pulse Ox 98.5 F 74 14 91/57 L 94 06/30/18 02:15 06/30/18 02:15 06/30/18 02:15 06/30/18 02:15 06/30/18 06:57 Oxygen Delivery Method Room Air Weight: 102.5 kg Body Mass Index (BMI) 33.5 Intake and Output for Last 24 Hours 06/28/18 06/29/18 06/30/18 23:59 23:59 23:59 Intake Total 1789 / 1789 2107 / 2107 Output Total 600 / 600 450 / 450 Balance 1189 / 1189 1657 / 1657 POC Glucose 06/30/18 06/30/18 06/29/18 05:41 00:12 16:34 POC Glucose 85 91 133 H 06/29/18 06/29/18 11:53 06:49 POC Glucose 105 108 Discharge Diet: - - Clear liquid diet Discharge Activity: Return to Normal Activity Home Medications: Medications to take at Discharge Acetaminophen/Butalbital/Caffe [Fioricet] 1 tablet PO Q4H PRN PRN 06/07/13 Enalapril Maleate [Vasotec] 5 mg PO QHS 06/07/13 Levalbuterol HCl [Xopenex Aerosols] 0.63 mg INHALATION Q6H PRN PRN 06/07/13 Levalbuterol Tartrate [Xopenex Hfa Inhaler] 2 puff INHALATION Q4H PRN PRN 06/07/13 Metformin(XR) [Glucophage Xr] 1,000 mg PO BID 06/07/13 Triamcinolone Acetonide [Nasacort Aq Nasal [place]] 2 spray NASAL DAILY 06/07/13 Levonorgestrel [Mirena] 1 each IY X1 02/05/16 Pantoprazole Sodium [Protonix] 40 mg PO DAILY PRN 02/05/16 Rosuvastatin Calcium [Crestor] 5 mg PO QHS 02/05/16 Montelukast [Singulair] 10 mg PO QHS 07/27/17 Ondansetron [Zofran Odt] 8 mg PO Q8H PRN PRN 04/26/18 Fluvoxamine Maleate 25 mg PO DAILY 06/29/18 Multivit-Min/Iron/Folic Acid/K [Bariatric Mv-Iron 45 mg Cap] 2 cap PO BID 06/29/18 Primary Care Physician: Shirlene George MD [Primary Care Provider] - Disposition: Acute care Hospital Minutes spent on discharge:: 50 Patient Condition:: Stable Medical Necessity - Tobacco Use Smoking Status: Never smoker Tobacco Use: Non-smoker Meaningful Use Info Meaningful Use Diagnoses (Choose all that apply): None applicable Code Visit Inpatient E&M: 91272 Disch Hosp
--- NOTE | 2018-06-30 09:52 | NURSING ---
transferring to [facility] room 263 call report to [place] [phone]
[2018-06-30 10:04] LABS: Absolute Lymphocyte Count 2.91 X10^3/ul (0.83-4.51); Absolute Neutrophil Count 6.5 X10^3/uL (2.0-7.7); Basophil# 0.02 X10^3/uL; Basophil% 0.2 % (0-1); Eosinophil# 0.37 X10^3/uL; Eosinophils% 3.5 % (0-5); Hematocrit 37.4 % (37-47); Hemoglobin 12.5 g/dl (12.0-15.0); Lymphocyte # 2.91 X10^3/ul (4.0); Lymphocyte % 27.8 % (19-41); Mean Corp Hgb Conc 33.4 g/gl (32-36); Mean Corpuscular Hgb 27.5 pg (27.0-32.0); Mean Corpuscular Volume 82.2 fL (81-99); Mean Platelet Vol. 9.3 fl (6.2-12.0); Monocyte# 0.63 X10^3/uL; Neutrophil # 6.53 X10^3/uL (2.7-7.7); Neutrophil % 62.3 % (47-70); Platelet Count 274 K/mm3 (150-450); RBC Distribution Width CV 13.6 % (11.6-14.6); RBC Distribution Width SD 41.1 fl (35.1-43.9); Red Blood Count 4.55 M/mm3 (4.2-5.4); White Blood Count 10.5 K/mm3 (4.4-11.0)
[2018-06-30 10:05] LABS: POSITIVE COUNT NO; POSITIVE DIFFERENTIAL NO; POSITIVE MORPHOLOGY NO
[2018-06-30 10:49] LABS: Anion Gap 9 (5-15); BUN 7 mg/dL (7-18); Calcium,Total 8.1 mg/dL (8.5-10.1); Chloride 113 mmol/L (98-107); Creatinine, Serum 0.58 mg/dL (0.55-1.02); EST Glomerular Filtration Rate 125 mL/min (>60); Est Glom Filt Rate - Afr Amer 151 mL/min (>60); Estimated Creatinine Clearance 136.57 ml/min; Glucose 93 mg/dL (74-106); Sodium Level 140 mmol/L (136-145)
[2018-06-30] MEDS: Fluticasone 0.05% 1 SPRAY NASAL.SRY 2 SPRAY NASAL (11:35)
[2018-06-30 11:40] LABS: Bedside Glucose 107 mg/dL (70-110)
[2018-06-30 12:14] VITALS: BP 127/74; PULSE 87; RESP 18; TEMP 36.2; O2SAT 98
--- NOTE | 2018-06-30 12:19 | PCM.PN.HOSP ---
Patient Problems: Active and Suspected Problems Intractable abdominal pain (Acute) Subjective: Patient was seen and examined. Discussed with general surgery, patient was to be transferred to [facility]. Patient declined the transfer at the last minute. She prefers to talk to her primary surgeon Dr. Acevedo tomorrow. She is hoping that she could avoid cholecystectomy. She is hoping for discharge home and to follow-up with Dr. Acevedo. I explained to her and her feelings see that with a current diagnosis of cholecystitis that cholecystectomy might be inevitable. Her pain is 2/10. Denies any fever or chills. Vitals/I&O's: Vital Signs Temp Pulse Resp BP Pulse Ox 97.2 F L 87 18 127/74 H 98 06/30/18 12:14 06/30/18 12:14 06/30/18 12:14 06/30/18 12:14 06/30/18 12:14 Oxygen Delivery Method Room Air Weight: 102.5 kg Body Mass Index (BMI) 33.5 Intake and Output for Last 24 Hours 06/28/18 06/29/18 06/30/18 23:59 23:59 23:59 Intake Total 1789 / 1789 2707 / 2707 Output Total 600 / 600 450 / 450 Balance 1189 / 1189 2257 / 2257 General: Alert, Oriented x3, Cooperative, No apparent distress, - HEENT: Atraumatic, PERRLA, EOMI, Normocephalic Oral: Moist Mucosa - Morbidly obese Neck: Supple Lungs: Clear to auscultation, Normal air movement Cardiovascular: Regular rate, Regular Rhythm, Normal S1, Normal S2, No murmurs Abdomen: Bowel Sounds Present, Soft, Non-Distended, No Hepato-splenomegaly, Tender - over epigastric and right upper quadrant Extremities: No edema Skin: No rashes, No breakdown Musculoskeletal: No Tenderness to Palpation of Joints or Extremities Lymphatic: No Cervical, Supraclavicular, or Inguinal Adenopathy Neurological: Cranial nerves II-XII grossly intact Psych/Mental Status: Normal Affect, Appropriate Laboratory Results 06/29/18 16:34: POC Glucose 133 H 06/30/18 00:12: POC Glucose 91 06/30/18 05:41: POC Glucose 85 06/30/18 09:50: WBC 10.5, RBC 4.55, Hgb 12.5, Hct 37.4, MCV 82.2, MCH 27.5, MCHC 33.4, RDW 13.6, RDW Differential 41.1, Plt Count 274, MPV 9.3, Immature Gran % (Auto) 0.200, Neut % (Auto) 62.3, Lymph % (Auto) 27.8, [place] % (Auto) 6.0, Eos % (Auto) 3.5, Baso % (Auto) 0.2, Absolute Neuts (auto) 6.5, Absolute Lymphs (auto) 2.91, Total Counted Not Reportable 06/30/18 09:50: Sodium 140, Potassium 4.0, Chloride 113 H, Carbon Dioxide 18.0 L, Anion Gap 9, BUN 7, Creatinine 0.58, Estim Creat Clear Calc 136.57, Est GFR (MDRD) Af Amer 151, Est GFR (MDRD) Non-Af 125, BUN/Creatinine Ratio 12.0, Glucose 93, Calcium 8.1 L 06/30/18 11:34: POC Glucose 107 Current Medications Acetaminophen (Tylenol) 650 mg PO Q6H PRN PRN PRN Reason: HEADACHE Last Admin: 06/29/18 20:46 Dose: 650 mg Acetaminophen/Butalbital/Caffeine (Fioricet) 1 tablet PO Q4H PRN PRN PRN Reason: HEADACHE Albuterol Sulfate (Ventolin Aerosols) 2.5 mg INHALATION Q6H PRN PRN PRN Reason: WHEEZING Albuterol Sulfate (Ventolin Aerosols) 2.5 mg INHALATION Q6HWA.RT [facility] Last Admin: 06/30/18 07:12 Dose: Not Given Atorvastatin Calcium (Lipitor) 10 mg PO QHS [facility] Last Admin: 06/29/18 21:49 Dose: Not Given Dextrose (D50w Syringe) 0 gm IV X1 PRN; Protocol PRN Reason: Hypoglycemia Fluticasone Propionate (Flonase Nasal [place]) 2 spray NASAL DAILY [facility] Last Admin: 06/30/18 11:35 Dose: 2 spray Fluvoxamine Maleate (Luvox) 25 mg PO DAILY [facility] Last Admin: 06/29/18 17:18 Dose: 25 mg Glucagon () 1 mg IM .X1 PRN PRN Reason: Hypoglycemia Heparin Sodium (Porcine) (Heparin Na) 5,000 unit SC Q8 [facility] Last Admin: 06/30/18 05:42 Dose: 5,000 unit Piperacillin Sod/Tazobactam (Sod 3.375 gm/ Sodium Chloride) 50 mls @ 12.5 mls/hr IV Q8 [facility] Last Admin: 06/30/18 05:42 Dose: 12.5 mls/hr Insulin Human Lispro (Humalog Kwikpen (Bkc)) 0 unit SQ Q6 [facility]; Protocol Last Admin: 06/30/18 12:16 Dose: Not Given Lisinopril (Zestril) 5 mg PO QHS [facility] Last Admin: 06/29/18 21:49 Dose: Not Given Montelukast Sodium (Singulair) 10 mg PO QHS [facility] Last Admin: 06/29/18 21:49 Dose: 10 mg Morphine Sulfate () 2 mg IV Q3H PRN PRN PRN Reason: Severe pain (7-10/10) Multivitamins/Minerals (Multivitamin With Minerals) 1 tablet PO BIDCM [facility] Last Admin: 06/30/18 08:23 Dose: 1 tablet Ondansetron HCl (Zofran) 4 mg IV Q6H PRN PRN PRN Reason: NAUSEA/VOMITING Pantoprazole Sodium (Protonix) 40 mg PO DAILY PRN PRN Reason: REFLUX Sodium Chloride () 5 - 15 ml IV UD PRN PRN Reason: SALINE FLUSH Last Admin: 06/29/18 14:23 Dose: 10 ml Ursodiol (Camacho) 250 mg PO TIDCM [facility] Last Admin: 06/30/18 11:35 Dose: 250 mg Medical Necessity - Tobacco Use Smoking Status: Never smoker Tobacco Use: Non-smoker Assessment/Plan All Active Problems Intractable abdominal pain (Acute) 37-year-old female with past medical history of bariatric surgery status post gastric sleeve surgery, history of type II DM, history of hypotension/POTS who comes in with intractable abdominal pain status post colonoscopy done on the day of admission. 1. Acute cholecystitis, improving, resolved leucocytosis, on IV Zosyn, Discussed with general surgery, recommended patient should be transferred back to [facility]. Patient was accepted by [facility] but patient refused transfer later. She prefers to get in touch with her primary surgeon on Sunday and hopefully be discharged to follow-up in the outpatient. 2. Type II DM, off metformin, continue to monitor on Accu-Cheks with insulin sliding scale. 3. History of bariatric surgery status post gastric sleeve 4. Hyperlipidemia, on statin 5. DVT PPx- Heparin SC Code Visit Inpatient E&M: 03824 Subs Hosp L2
--- NOTE | 2018-06-30 12:24 | PN_ITS ---
Patient Problems: Active and Suspected Problems Intractable abdominal pain (Acute) Subjective: Patient was seen and examined. Discussed with general surgery, patient was to be transferred to [facility]. Patient declined the transfer at the last minute. She prefers to talk to her primary surgeon Dr. Acevedo tomorrow. She is hoping that she could avoid cholecystectomy. She is hoping for discharge home and to follow-up with Dr. Acevedo. I explained to her and her feelings see that with a current diagnosis of cholecystitis that cholecystectomy might be inevitable. Her pain is 2/10. Denies any fever or chills. Vitals/I&O's: Vital Signs Temp Pulse Resp BP Pulse Ox 97.2 F L 87 18 127/74 H 98 06/30/18 12:14 06/30/18 12:14 06/30/18 12:14 06/30/18 12:14 06/30/18 12:14 Oxygen Delivery Method Room Air Weight: 102.5 kg Body Mass Index (BMI) 33.5 Intake and Output for Last 24 Hours 06/28/18 06/29/18 06/30/18 23:59 23:59 23:59 Intake Total 1789 / 1789 2707 / 2707 Output Total 600 / 600 450 / 450 Balance 1189 / 1189 2257 / 2257 General: Alert, Oriented x3, Cooperative, No apparent distress, - HEENT: Atraumatic, PERRLA, EOMI, Normocephalic Oral: Moist Mucosa - Morbidly obese Neck: Supple Lungs: Clear to auscultation, Normal air movement Cardiovascular: Regular rate, Regular Rhythm, Normal S1, Normal S2, No murmurs Abdomen: Bowel Sounds Present, Soft, Non-Distended, No Hepato-splenomegaly, Tender - over epigastric and right upper quadrant Extremities: No edema Skin: No rashes, No breakdown Musculoskeletal: No Tenderness to Palpation of Joints or Extremities Lymphatic: No Cervical, Supraclavicular, or Inguinal Adenopathy Neurological: Cranial nerves II-XII grossly intact Psych/Mental Status: Normal Affect, Appropriate Laboratory Results 06/29/18 16:34: POC Glucose 133 H 06/30/18 00:12: POC Glucose 91 06/30/18 05:41: POC Glucose 85 06/30/18 09:50: WBC 10.5, RBC 4.55, Hgb 12.5, Hct 37.4, MCV 82.2, MCH 27.5, MCHC 33.4, RDW 13.6, RDW Differential 41.1, Plt Count 274, MPV 9.3, Immature Gran % (Auto) 0.200, Neut % (Auto) 62.3, Lymph % (Auto) 27.8, [place] % (Auto) 6.0, Eos % (Auto) 3.5, Baso % (Auto) 0.2, Absolute Neuts (auto) 6.5, Absolute Lymphs (auto) 2.91, Total Counted Not Reportable 06/30/18 09:50: Sodium 140, Potassium 4.0, Chloride 113 H, Carbon Dioxide 18.0 L , Anion Gap 9, BUN 7, Creatinine 0.58, Estim Creat Clear Calc 136.57, Est GFR (MDRD) Af Amer 151, Est GFR (MDRD) Non-Af 125, BUN/Creatinine Ratio 12.0, Glucose 93, Calcium 8.1 L 06/30/18 11:34: POC Glucose 107 Current Medications Acetaminophen (Tylenol) 650 mg PO Q6H PRN PRN PRN Reason: HEADACHE Last Admin: 06/29/18 20:46 Dose: 650 mg Acetaminophen/Butalbital/Caffeine (Fioricet) 1 tablet PO Q4H PRN PRN PRN Reason: HEADACHE Albuterol Sulfate (Ventolin Aerosols) 2.5 mg INHALATION Q6H PRN PRN PRN Reason: WHEEZING Albuterol Sulfate (Ventolin Aerosols) 2.5 mg INHALATION Q6HWA.RT [facility] Last Admin: 06/30/18 07:12 Dose: Not Given Atorvastatin Calcium (Lipitor) 10 mg PO QHS [facility] Last Admin: 06/29/18 21:49 Dose: Not Given Dextrose (D50w Syringe) 0 gm IV X1 PRN; Protocol PRN Reason: Hypoglycemia Fluticasone Propionate (Flonase Nasal [place]) 2 spray NASAL DAILY [facility] Last Admin: 06/30/18 11:35 Dose: 2 spray Fluvoxamine Maleate (Luvox) 25 mg PO DAILY [facility] Last Admin: 06/29/18 17:18 Dose: 25 mg Glucagon () 1 mg IM .X1 PRN PRN Reason: Hypoglycemia Heparin Sodium (Porcine) (Heparin Na) 5,000 unit SC Q8 [facility] Last Admin: 06/30/18 05:42 Dose: 5,000 unit Piperacillin Sod/Tazobactam (Sod 3.375 gm/ Sodium Chloride) 50 mls @ 12.5 mls/hr IV Q8 [facility] Last Admin: 06/30/18 05:42 Dose: 12.5 mls/hr Insulin Human Lispro (Humalog Kwikpen (Bkc)) 0 unit SQ Q6 [facility]; Protocol Last Admin: 06/30/18 12:16 Dose: Not Given Lisinopril (Zestril) 5 mg PO QHS [facility] Last Admin: 06/29/18 21:49 Dose: Not Given Montelukast Sodium (Singulair) 10 mg PO QHS [facility] Last Admin: 06/29/18 21:49 Dose: 10 mg Morphine Sulfate () 2 mg IV Q3H PRN PRN PRN Reason: Severe pain (7-10/10) Multivitamins/Minerals (Multivitamin With Minerals) 1 tablet PO BIDCM [facility] Last Admin: 06/30/18 08:23 Dose: 1 tablet Ondansetron HCl (Zofran) 4 mg IV Q6H PRN PRN PRN Reason: NAUSEA/VOMITING Pantoprazole Sodium (Protonix) 40 mg PO DAILY PRN PRN Reason: REFLUX Sodium Chloride () 5 - 15 ml IV UD PRN PRN Reason: SALINE FLUSH Last Admin: 06/29/18 14:23 Dose: 10 ml Ursodiol (Camacho) 250 mg PO TIDCM [facility] Last Admin: 06/30/18 11:35 Dose: 250 mg Medical Necessity - Tobacco Use Smoking Status: Never smoker Tobacco Use: Non-smoker Assessment/Plan All Active Problems Intractable abdominal pain (Acute) 37-year-old female with past medical history of bariatric surgery status post gastric sleeve surgery, history of type II DM, history of hypotension/POTS who comes in with intractable abdominal pain status post colonoscopy done on the day of admission. 1. Acute cholecystitis, improving, resolved leucocytosis, on IV Zosyn, Discussed with general surgery, recommended patient should be transferred back to [facility]. Patient was accepted by [facility] but patient refused transfer later. She prefers to get in touch with her primary surgeon on Sunday and hopefully be discharged to follow-up in the outpatient. 2. Type II DM, off metformin, continue to monitor on Accu-Cheks with insulin sliding scale. 3. History of bariatric surgery status post gastric sleeve 4. Hyperlipidemia, on statin 5. DVT PPx- Heparin SC Code Visit Inpatient E&M: 19992 Subs Hosp L2
[2018-06-30 16:20] LABS: Bedside Glucose 114 mg/dL (70-110)
[2018-06-30 21:08] VITALS: BP 108/61; PULSE 90; RESP 16; TEMP 36.5; O2SAT 98
[2018-06-30] MEDS: Montelukast 10 MG Tablet PO (21:25)
[2018-06-30] MEDS: 0.9% NaCl Peripheral Flush Adult/Peds IV (21:27)
[2018-06-30 22:46] LABS: Bedside Glucose 213 mg/dL (70-110)
[2018-07-01 03:26] VITALS: BP 98/58; PULSE 87; RESP 16; TEMP 36.4; O2SAT 96
[2018-07-01 06:55] LABS: Bedside Glucose 114 mg/dL (70-110)
--- NOTE | 2018-07-01 07:34 | PCM.PN.SRG ---
Patient Problems: Active and Suspected Problems Intractable abdominal pain (Acute) Subjective: Patient with improving but still uncomfortable - Physical Exam General: Alert Oral: Moist Mucosa Neck: Supple Cardiovascular: Regular rate Abdomen: Soft - tender in the right upper quadrant but no peritoneal signs Vital Signs Temp Pulse Resp BP Pulse Ox 97.5 F L 87 16 98/58 L 96 07/01/18 03:26 07/01/18 03:26 07/01/18 03:26 07/01/18 03:26 07/01/18 03:26 Oxygen Delivery Method Room Air Weight: 102.5 kg Body Mass Index (BMI) 33.5 Intake and Output for Last 24 Hours 06/29/18 06/30/18 07/01/18 23:59 23:59 23:59 Intake Total 1789 / 1789 3757 / 3757 850 / 850 Output Total 600 / 600 450 / 450 Balance 1189 / 1189 3307 / 3307 850 / 850 Laboratory Tests Past 24 Hrs 06/30/18 06/30/18 09:50 09:50 WBC 10.5 RBC 4.55 Hgb 12.5 Hct 37.4 MCV 82.2 MCH 27.5 MCHC 33.4 RDW 13.6 RDW Differential 41.1 Plt Count 274 MPV 9.3 Immature Gran % (Auto) 0.200 Neut % (Auto) 62.3 Lymph % (Auto) 27.8 [place] % (Auto) 6.0 Eos % (Auto) 3.5 Baso % (Auto) 0.2 Absolute Neuts (auto) 6.5 Absolute Lymphs (auto) 2.91 Total Counted Not Reportable Sodium 140 Potassium 4.0 Chloride 113 H Carbon Dioxide 18.0 L Anion Gap 9 BUN 7 Creatinine 0.58 Estim Creat Clear Calc 136.57 Est GFR (MDRD) Af Amer 151 Est GFR (MDRD) Non-Af 125 BUN/Creatinine Ratio 12.0 Glucose 93 Calcium 8.1 L POC Glucose 07/01/18 06/30/18 06/30/18 06:50 21:20 16:14 POC Glucose 114 H 213 H 114 H 06/30/18 11:34 POC Glucose 107 Medical Necessity - Tobacco Use Smoking Status: Never smoker Tobacco Use: Non-smoker Assessment/Plan All Active Problems Intractable abdominal pain (Acute) Impression: acute cholecystitis Plan: Patient wants to go home, she would like to follow up with her bariatric surgeon, Dr. Olea for gallbladder surgery
--- NOTE | 2018-07-01 07:47 | PCM.DC ---
- Discharge Diagnoses Current Active Problems: Current Active and Chronic Problems Intractable abdominal pain (Acute) You will use the following diet at home:: Other - transition diet, low-fat/oily diet Discharge Activity: May Not Drive - For 2 to 3 days, May not drive while taking narcotic pain medications. Weight Bearing Status: Weight bearing as tolerated Call your doctor if you observe: Fever of 101 or Higher, Inability to have a bowel movement, Shortness of breath, Fainting spells, Chest pain, Uncontrolled pain - Abdominal pain Additional Instructions: Follow-up bariatric surgeon Dr. Acevedo within 2 to 3 days Allergies/Adverse Reactions: Allergies ciprofloxacin [From Cipro] Allergy (Verified 06/28/18 20:30) Anaphylaxis ciprofloxacin HCl [From Cipro] Allergy (Verified 06/28/18 20:30) Anaphylaxis Sulfa (Sulfonamide Antibiotics) Allergy (Verified 06/28/18 20:30) Shortness of breath tomato Allergy (Verified 06/28/18 20:30) Food Allergy wheat Allergy (Verified 06/28/18 20:30) Food Allergy adhesive Adverse Reaction (Verified 06/28/18 20:30) Other aspirin Adverse Reaction (Verified 06/28/18 20:30) Nausea/Vom/Diarrhea nickel Adverse Reaction (Verified 06/28/18 20:30) Rash Opioids - Morphine Analogues Adverse Reaction (Verified 06/28/18 20:30) Inflammation of vein sumatriptan [From Imitrex] Adverse Reaction (Verified 06/28/18 20:30) Vomiting sumatriptan succinate [From Imitrex] Adverse Reaction (Verified 06/28/18 20:30) Vomiting Medications to take at Discharge Acetaminophen/Butalbital/Caffe [Fioricet] 1 tablet PO Q4H PRN PRN 06/07/13 Enalapril Maleate [Vasotec] 5 mg PO QHS 06/07/13 Levalbuterol HCl [Xopenex Aerosols] 0.63 mg INHALATION Q6H PRN PRN 06/07/13 Levalbuterol Tartrate [Xopenex Hfa Inhaler] 2 puff INHALATION Q4H PRN PRN 06/07/13 Metformin(XR) [Glucophage Xr] 1,000 mg PO BID 06/07/13 Triamcinolone Acetonide [Nasacort Aq Nasal [place]] 2 spray NASAL DAILY 06/07/13 Levonorgestrel [Mirena] 1 each IY X1 02/05/16 Pantoprazole Sodium [Protonix] 40 mg PO DAILY PRN 02/05/16 Rosuvastatin Calcium [Crestor] 5 mg PO QHS 02/05/16 Montelukast [Singulair] 10 mg PO QHS 07/27/17 Ondansetron [Zofran Odt] 8 mg PO Q8H PRN PRN 04/26/18 Fluvoxamine Maleate 25 mg PO DAILY 06/29/18 Multivit-Min/Iron/Folic Acid/K [Bariatric Mv-Iron 45 mg Cap] 2 cap PO BID 06/29/18 Amoxicillin/Potassium Clav [Augmentin 875-125 Tablet] 1 ea PO BID #10 tab 07/01/18 Lactobacillus Acidophilus [Acidophilus] 1 ea PO BID #14 tab.chew 07/01/18 The following prescriptions were given: Amoxicillin/Potassium Clav [Augmentin 875-125 Tablet] 1 ea PO BID #10 tab Lactobacillus Acidophilus [Acidophilus] 1 ea PO BID #14 tab.chew Primary Care Physician: Shirlene George MD [Primary Care Provider] - Please follow up with your Primary Care Physician in: in 2 weeks Test Results: Test results from this visit will be discussed in further detail at your follow-up appointment, if applicable. Proposed Discharge Date: 06/30/18
--- NOTE | 2018-07-01 07:58 | DS.PCM_ITS ---
Discharge Date and Diagnosis Date of Admission: 06/29/18 Date of Discharge: 07/01/18 - Primary Discharge Diagnosis Active and Suspected Problems Intractable abdominal pain (Acute) - Secondary Discharge Diagnosis Chronic Problems History of pilonidal cyst (Chronic) chronic vertigo/dizziness (Chronic) Chronic low back pain (Chronic) Morbid obesity (Chronic) Type 2 diabetes mellitus (Chronic) Hyperlipidemia (Chronic) Gastroesophageal reflux disease (Chronic) Benign hypertension (Chronic) Hospital Course and Treatment Operations: None Summary of Care Provided: [] The patient is a 37 year old F with past medical history of bariatric surgery, gastric sleeve in February [address] Acevedo, history of type II DM who presents with worsening abdominal pain. She had colonoscopy done on 06/28/18 for chronic diarrhea. Patient subsequently had intractable abdominal pain, worse with movements radiating to her right flank. She denied any fever or chills. She had mild tachycardia 104/min in ED but no hypotension. Her white cell count was 18,400. CT of the abdominal pelvis showed distended gallbladder, mild hepatic steatosis, mild to moderate constipation. Ultrasound liver shows distended gallbladder with wall thickening, 3 to 5.7 mm. Numerous tiny and larger echogenic structures within the gallbladder consistent with multiple gallstones. Trace pericholecystic fluid and positive sonographic Acharya sign. CBD 6 mm. Patient was admitted to the regular floor, started on IV fluids, IV antibiotics, Zosyn. She was seen by general surgery, who recommended transfer back to her primary surgeons. Patient's white cell count had resolved at the time of admission. Patient was accepted by the general surgery team and was supposed to be transferred to [facility] but she declined transfer at the last minute prefers to see surgeon Dr. Acevedo today. Discussed with the surgeon Dr. Melgar and he recommended 5 more days of antibiotics to complete 7 days follow-up with the bariatric surgeon for cholecystitis The patient also has chronic diarrhea after bariatric surgery in February 2018 until day prior to colonoscopy. She also had a stool for C. difficile checked which was negative. As per the patient, patient had stool culture positive for Pseudomonas and has seen infectious disease doctor and was decided not to treat. Patient also had one loose bowel movement started after she had dinner yesterday. Discharge medication reconciliation done. Discharge follow-up instructions completed. Discharge process discussed with the patient and all questions were answered to patient's satisfaction. Patient has been discharged on antibiotic Augmentin for 5 more days. Patient was advised to see Dr. Acevedo within 2 days. Total time spent, exact 35 minutes on discharge meds reconciliation, examination, review of imaging and blood test and discussion with the patient on follow-up instructions. Clinical Impression(s) from Imaging Studies Abdomen/Pelvis CT 06/28/18 21:10 IMPRESSION: Distended gallbladder. Mild hepatic steatosis. No evidence of appendicitis. [id number] constipation. IUD in the uterus. Gallbladder Ultrasound 06/29/18 05:55 IMPRESSION: Distended gallbladder, wall thickening, and trace pericholecystic fluid distended common duct positive sonographic Acharya sign is suspicious for acute cholecystitis. Subjective: Patient denies abdominal pain. No fever or chills. Patient tolerated food yesterday night. Discussed with the surgeon Dr. Melgar. - Physical Exam General: Alert, Oriented x3, Cooperative HEENT: Atraumatic, PERRLA, EOMI, Normocephalic Neck: Supple, No JVD, Negative Carotid Bruits Lungs: Clear to auscultation, Normal air movement, No rhonchi, No wheeze, No rales Cardiovascular: Regular rate, Regular Rhythm, Normal S1, Normal S2, No murmurs Abdomen: Bowel Sounds Present, Soft, Non Tender, Non-Distended, - Extremities: No edema, Capillary Refill Less than 3 Seconds Skin: No rashes, No breakdown Musculoskeletal: No Tenderness to Palpation of Joints or Extremities, Arthritic Changes Lymphatic: No Cervical, Supraclavicular, or Inguinal Adenopathy Neurological: Cranial nerves II-XII grossly intact, Deep Tendon Reflexes 2+/4 and Symmetrical, Neuro grossly intact Psych/Mental Status: Normal Affect, Appropriate Vital Signs Temp Pulse Resp BP Pulse Ox 97.5 F L 87 16 98/58 L 96 07/01/18 03:26 07/01/18 03:26 07/01/18 03:26 07/01/18 03:26 07/01/18 03:26 Oxygen Delivery Method Room Air Weight: 225 lb 15.581 oz Body Mass Index (BMI) 33.5 Intake and Output for Last 24 Hours 06/29/18 06/30/18 07/01/18 23:59 23:59 23:59 Intake Total 1789 / 1789 3757 / 3757 850 / 850 Output Total 600 / 600 450 / 450 Balance 1189 / 1189 3307 / 3307 850 / 850 Laboratory Tests Past 24 Hrs 06/30/18 06/30/18 09:50 09:50 WBC 10.5 RBC 4.55 Hgb 12.5 Hct 37.4 MCV 82.2 MCH 27.5 MCHC 33.4 RDW 13.6 RDW Differential 41.1 Plt Count 274 MPV 9.3 Immature Gran % (Auto) 0.200 Neut % (Auto) 62.3 Lymph % (Auto) 27.8 [place] % (Auto) 6.0 Eos % (Auto) 3.5 Baso % (Auto) 0.2 Absolute Neuts (auto) 6.5 Absolute Lymphs (auto) 2.91 Total Counted Not Reportable Sodium 140 Potassium 4.0 Chloride 113 H Carbon Dioxide 18.0 L Anion Gap 9 BUN 7 Creatinine 0.58 Estim Creat Clear Calc 136.57 Est GFR (MDRD) Af Amer 151 Est GFR (MDRD) Non-Af 125 BUN/Creatinine Ratio 12.0 Glucose 93 Calcium 8.1 L POC Glucose 07/01/18 06/30/18 06/30/18 06:50 21:20 16:14 POC Glucose 114 H 213 H 114 H 06/30/18 11:34 POC Glucose 107 Discharge Diet: - - Clear liquid diet Discharge Activity: May Not Drive - For 2 to 3 days, May not drive while taking narcotic pain medications. Weight Bearing Status: Weight bearing as tolerated Call your doctor if you observe: Fever of 101 or Higher, Inability to have a bowel movement, Shortness of breath, Fainting spells, Chest pain, Uncontrolled pain - Abdominal pain Home Medications: Medications to take at Discharge Acetaminophen/Butalbital/Caffe [Fioricet] 1 tablet PO Q4H PRN PRN 06/07/13 Enalapril Maleate [Vasotec] 5 mg PO QHS 06/07/13 Levalbuterol HCl [Xopenex Aerosols] 0.63 mg INHALATION Q6H PRN PRN 06/07/13 Levalbuterol Tartrate [Xopenex Hfa Inhaler] 2 puff INHALATION Q4H PRN PRN 06/07/13 Metformin(XR) [Glucophage Xr] 1,000 mg PO BID 06/07/13 Triamcinolone Acetonide [Nasacort Aq Nasal [place]] 2 spray NASAL DAILY 06/07/13 Levonorgestrel [Mirena] 1 each IY X1 02/05/16 Pantoprazole Sodium [Protonix] 40 mg PO DAILY PRN 02/05/16 Rosuvastatin Calcium [Crestor] 5 mg PO QHS 02/05/16 Montelukast [Singulair] 10 mg PO QHS 07/27/17 Ondansetron [Zofran Odt] 8 mg PO Q8H PRN PRN 04/26/18 Fluvoxamine Maleate 25 mg PO DAILY 06/29/18 Multivit-Min/Iron/Folic Acid/K [Bariatric Mv-Iron 45 mg Cap] 2 cap PO BID 06/29/18 Amoxicillin/Potassium Clav [Augmentin 875-125 Tablet] 1 ea PO BID #10 tab 07/01/18 Lactobacillus Acidophilus [Acidophilus] 1 ea PO BID #14 tab.chew 07/01/18 Ursodiol [Camacho] 250 mg PO TID #60 tablet 07/01/18 Following Prescrptions Were Given to Patient: Amoxicillin/Potassium Clav [Augmentin 875-125 Tablet] 1 ea PO BID #10 tab Lactobacillus Acidophilus [Acidophilus] 1 ea PO BID #14 tab.chew Ursodiol [Camacho] 250 mg PO TID #60 tablet Primary Care Physician: Shirlene George MD [Primary Care Provider] - Please follow up with your Primary Care Physician in: in 2 weeks Disposition: Acute care Hospital Medical Necessity - Tobacco Use Smoking Status: Never smoker Tobacco Use: Non-smoker Meaningful Use Info Meaningful Use Diagnoses (Choose all that apply): None applicable Code Visit Inpatient E&M: 41941 Disch Hosp
[2018-07-01 08:55] VITALS: BP 117/70; PULSE 78; RESP 16; TEMP 36.9; O2SAT 97
[2018-07-01] MEDS: Ursodiol 250 MG Tablet PO (09:11)
[2018-07-01] MEDS: Multivitamins,Ther W-Minerals Tablet 1 TABLET PO (09:11)
--- NOTE | 2018-07-01 09:19 | NURSING ---
Patient's in to see pt this morning while this RN present in room. States that he is surprised that pt is being d/c'ed today since they were going to transfer pt yesterday. Educated pt and that this rN spoke with Dr. Melgar this morning, and she states that since pt recently had a gastric procedure she did not feel comfortable performing surgery at this time and was going to transfer to a higher level of care hospital. states that he cannot understand why we would send pt to a hospital where they know nothing about her and asked what would happen if pt had surgery in [place] and then moved here- would the doctor send her back to [place]? This RN educated and pt that patient would be transferred to a higher level of care hospital, as they tried to do yesterday. Notified that attempt was made and reminded them that patient refused and stated that she wanted to follow up with Dr. Acevedo. states that Dr. Acevedo will not be performing this surgery- again acknowledged that this was the case and that we could speak with physician if patient is agreeable to transferring to [facility] or [place] as was the attempted plan yesterday. Patient refused and states that she should be fine and reports she has no pain and is able to eat without attack she was having prior. Requested script for rohan, release of medical records and to verify with physician that it is ok to resume metformin tonight- since had CT scan with [facility]. This RN texted Dr. Bhandari at this time.
== END 2018-07-01 11:06 | disposition home or self-care (01) ==
LOC: ED 21:23 → MS3 06-29 00:41
PROVIDERS: Internal Medicine; Admitting Provider Hospitalist; Emergency Provider Emergency Medicine; Family Provider Internal Medicine; PCP Internal Medicine; Visit Provider Internal Medicine
DX: K81.0 Acute cholecystitis (principal); E11.9 Type 2 diabetes mellitus without complications; J45.909 Unspecified asthma, uncomplicated; E66.01 Morbid (severe) obesity due to excess calories; E78.5 Hyperlipidemia, unspecified; K21.9 Gastro-esophageal reflux disease without esophagitis; I10 Essential (primary) hypertension; Z79.51 Long term (current) use of inhaled steroids; Z98.84 Bariatric surgery status; Z79.899 Other long term (current) drug therapy; Z79.84 Long term (current) use of oral hypoglycemic drugs; Z68.33 Body mass index [BMI] 33.0-33.9, adult; Z71.3 Dietary counseling and surveillance; G43.909 Migraine, unspecified, not intractable, without status migrainosus; K52.9 Noninfective gastroenteritis and colitis, unspecified
CPT/HCPCS: 36415; 74177; 76705; 80048; 80053; 81001; 82962; 83690; 84703; 85025; 96361; 96365; 96366; 96372; 96375; 96376; 99218; 99285; J7030; Q9967; A4216; G0378; J2405

== ENCOUNTER 2018-08-14 18:04 | Emergency (ER) | payer MEDICAID, SELFPAY ==
[2018-06-29 00:52] VITALS: BMI 33.5
[2018-08-14 18:06] VITALS: BP 135/69; PULSE 93; RESP 18; TEMP 36.6; O2SAT 96; BMI 33.0
--- NOTE | 2018-08-14 18:27 | ED.VIS.GEN ---
History of Present Illness Chief Complaint: Headache Informant: Patient Onset: Days - Onset 5 days ago Context: Sudden Onset Timing: Continuous Quality: Throbbing Location: Bilateral Current Severity: Moderate Maximum Severity: Severe Worsened by: Light and sound Relieved by: Nothing Associated Symptoms: Blurred vision left eye only and nausea vomiting today Narrative: Patient a 37-year-old woman who has history of migraine headaches who takes Fioricet and Midrin for headaches. She reports no improvement. She presents because headache is persisted for 5 days. She reports nausea vomiting today. She denies fever, chills night sweats. She denies double vision or loss of vision. She reports blurred vision left eye only. She denies neck pain or neck stiffness. She denies hematemesis, melanotic easy. She denies cardiac respiratory symptoms. She denies urologic symptoms. There is no history of trauma. She denies rash. Prior similar symptoms: Yes Recent Illness/Hospitalization: No - Past Medical History (1) Benign hypertension Status: Chronic (2) Gastroesophageal reflux disease Status: Chronic (3) History of pilonidal cyst Status: Chronic (4) Hyperlipidemia Status: Chronic (5) Morbid obesity Status: Chronic (6) Type 2 diabetes mellitus Status: Chronic (7) chronic vertigo/dizziness Status: Chronic Past Medical History - Allergies and Home Meds Allergies/Adverse Reactions: Allergies ciprofloxacin [From Cipro] Allergy (Verified 08/14/18 18:05) Anaphylaxis ciprofloxacin HCl [From Cipro] Allergy (Verified 08/14/18 18:05) Anaphylaxis Sulfa (Sulfonamide Antibiotics) Allergy (Verified 08/14/18 18:05) Shortness of breath tomato Allergy (Verified 08/14/18 18:05) Food Allergy wheat Allergy (Verified 08/14/18 18:05) Food Allergy adhesive Adverse Reaction (Verified 08/14/18 18:05) Other aspirin Adverse Reaction (Verified 08/14/18 18:05) Nausea/Vom/Diarrhea diphenhydramine [From Benadryl] Adverse Reaction (Verified 08/14/18 18:05) Shortness of breath morphine Adverse Reaction (Verified 08/14/18 18:05) Shortness of breath nickel Adverse Reaction (Verified 08/14/18 18:05) Rash Opioids - Morphine Analogues Adverse Reaction (Verified 08/14/18 18:05) Inflammation of vein sumatriptan [From Imitrex] Adverse Reaction (Verified 08/14/18 18:05) Vomiting sumatriptan succinate [From Imitrex] Adverse Reaction (Verified 08/14/18 18:05) Vomiting Primary Care Physician: Shirlene George MD [Primary Care Provider] - Prior records reviewed: Yes Surgical History: noncontributory, - - Gastric sleeve surgery; nasal turbinates surgery with deviation of septum; cyst removed from eyelid. Balloon sinuplasty; pilonidal cyst removal from buttocks. Lives: Spouse/ Significant Other Smoking Status: Never smoker Drugs: None - This - Family History Maternal Family History: Reports: Cancer - Colon, Diabetes Paternal Family History: Reports: - - Patient does not know about his paternal medical history. Review of Systems General: Denies: Chills, Fever, Sweats Eyes: Reports: Blurred vision - left. Denies: Visual changes - bilaterally, Diplopia ENT: Denies: Rhinorrhea, Sore throat Cardiovascular: Denies: Chest pain, Palpitations Respiratory: Denies: Dyspnea, Cough, Dyspnea on exertion Gastrointestinal: Reports: Nausea, Vomiting. Denies: Abdominal pain, Diarrhea, Melena, Hematochezia Genitourinary: Denies: Dysuria, Hematuria, Frequency Musculoskeletal: Denies: Back pain, Extremity Pain Skin: Denies: Rash, Wounds Neurological: Reports: Headache. Denies: Weakness, Parasthesia, Numbness Endocrine: Denies: Polyuria, Polydipsia Hematologic: Denies: Easy bruising, Easy bleeding Physical Exam Vital Signs/Narrative: Vital Signs Temp Pulse Resp BP Pulse Ox 08/14/18 18:06 97.9 F 93 18 135/69 H 96 Inital Vital Signs reviewed: Yes General: Well nourished, Well developed, Obese, No Acute Distress Head: Normocephalic, Atraumatic Eyes: Perrl, EOMI, - - Funduscopic exam reveals no papilledema and cup-to-disc ratio is normal. There is no evidence of photophobia.. Negative for: Pale conjunctiva, Scleral icterus ENT: Moist mucous membranes, No rhinorrhea Neck: Supple, Nontender, No lymphadenopathy, No JVD Cardiovascular: Regular rate, Regular rhythm, No murmurs, Normal S1, Normal S2 Respiratory: No distress, CTA bilaterally, Chest nontender Abdomen: Soft, Nontender, Nondistended, Normal bowel sounds Back: Nontender, Normal Inspection Extremities: Nontender, No edema Skin: Normal color, No rash, No Trauma. Negative for: Cyanosis, Diaphoresis, Jaundice Neurological: Alert, Oriented x3, Cranial nerves II-XII grossly intact, Normal Strength, Normal Sensation, Normal DTR, Normal Gait Psychological: Depressed Diagnostic/Tx/Re-eval - Medical Decision Making With history of typical migraine and no relief for 5 days will insert IV and treat with 25 mg of Benadryl, 50 mg of Toradol IV push and 10 mg of Reglan IV push. Will reassess in 30 to 60 minutes. Patient was reassessed at 2100. She reports greater than 50% reduction of her headache. She states her left eye is still slightly blurry. Plan is to discharge to home with appropriate home-going instructions ED Disposition - Plan for ED Patient: Disposition: Home or Assisted Living Diagnosis: Ocular migraine with status migrainosus Instructions: HEADACHE, Migraine (Classical) Referrals: Shirlene George MD [Primary Care Provider] - 1-2 Days if not improving
[2018-08-14] MEDS: DiphenhydrAMINE 50 MG/ML Syringe 25 MG IV (19:08)
[2018-08-14] MEDS: 0.9% Normal Saline 1,000 ML 999 ML IV (19:08)
[2018-08-14] MEDS: Ketorolac 30 MG/ML Syringe 15 MG IV (19:08)
[2018-08-14] MEDS: Metoclopramide 10 MG/2 ML Vial IV (19:09)
[2018-08-14 21:19] VITALS: RESP 16
== END 2018-08-14 21:23 | disposition home or self-care (01) ==
PROVIDERS: Emergency Provider Emergency Medicine; Family Provider Internal Medicine; PCP Internal Medicine
DX: G43.801 Other migraine, not intractable, with status migrainosus (principal); I10 Essential (primary) hypertension; K21.9 Gastro-esophageal reflux disease without esophagitis; E78.5 Hyperlipidemia, unspecified; E11.9 Type 2 diabetes mellitus without complications; E66.01 Morbid (severe) obesity due to excess calories; Z68.33 Body mass index [BMI] 33.0-33.9, adult; Z79.84 Long term (current) use of oral hypoglycemic drugs; Z79.899 Other long term (current) drug therapy
CPT/HCPCS: 96361; 96374; 96375; 99283; J7030; A4216

== ENCOUNTER 2018-08-15 19:57 | Emergency (ER) | payer MEDICAID, SELFPAY ==
[2018-08-14 18:06] VITALS: BMI 33.0
[2018-08-15 19:58] VITALS: BP 134/76; PULSE 97; RESP 18; TEMP 36.7; O2SAT 96; BMI 32.9
[2018-08-15] MEDS: 0.9% Normal Saline 1,000 ML 999 ML IV (20:31)
[2018-08-15] MEDS: Ketorolac 30 MG/ML Syringe IV (20:32)
[2018-08-15] MEDS: Metoclopramide 10 MG/2 ML Vial IV (20:32)
[2018-08-15] MEDS: dexAMETHasone 10 MG/ML Vial IV (20:32)
--- NOTE | 2018-08-15 21:34 | ED.DCSUM_ITS ---
- ER Visit Summary Date of Service: 08/15/18 Chief Complaint: Headache History of Present Illness: The patient is a [address] Martinez and Dr. George. Patient reports that she is had migraines since she was 6 years old. She has a headache that began 6 days ago. She attempted using her Fioricet and Midrin initially without relief. States that it is a diffuse throbbing pain that is similar to her prior headaches. It is 10 out of 10 at worst and 7-10 currently. Is worsened by light. She reports is been nausea and vomited 8 times today. No blood or emesis. She does report that she had a preceding aura today that was flashing lights in vision on her left. States this is typical for her. Patient denies any recent injury to her head. No fever, chills, numbness, weakness, or other complaints. Physical Examination: Vitals: Stable. Afebrile. General: Well-nourished and well-developed. Head: Normocephalic atraumatic. Neck: Supple, no lymphadenopathy. No JVD. Nontender. Cardiovascular: Regular rate and rhythm. No murmurs. Respiratory: No respiratory distress. Clear to auscultation bilaterally. Abdominal: Soft, nontender, nondistended, normal bowel sounds. No guarding, rebound, or peritoneal signs. Back: Nontender. Extremities: Nontender, no edema. Skin: Normal color, no rash. Neurologic: Alert and oriented ?3. Cranial nerves II through XII are intact. Normal strength and sensation. Psych: Normal affect. Emergency Department Course and Treatment: Patient had an IV placed. She was given Toradol, Reglan, dexamethasone IV. She has had significant relief. She is not pain-free however. Treatment Plan: Patient will be discharged instructions to follow-up with her neurologist, Dr. Martinez, tomorrow for further evaluation and treatment. Return to the emergency department for any worsening symptoms. Disposition: To home in improved and stable condition. Impression: 1. Migraine headache. This note was generated with [employer] software. It may contain incorrect words, spelling, and punctuation that were not noted in review of the chart prior to signing ED Disposition - Plan for ED Patient: Instructions: HEADACHE, Migraine (Classical) Referrals: Berry Martinez MD [STAFF PHYSICIAN] - 1-2 Days if not improving
[2018-08-15 21:58] VITALS: PULSE 89; RESP 16; O2SAT 98
== END 2018-08-15 21:59 | disposition home or self-care (01) ==
LOC: ED 20:35
PROVIDERS: Emergency Provider Emergency Medicine; Family Provider Internal Medicine; PCP Internal Medicine
DX: G43.909 Migraine, unspecified, not intractable, without status migrainosus (principal); J45.909 Unspecified asthma, uncomplicated
CPT/HCPCS: 96361; 96374; 96375; 99284; J7030; A4216

== ENCOUNTER 2018-08-19 17:46 | Emergency (ER) | payer MEDICAID, SELFPAY ==
[2018-08-19 17:49] VITALS: BP 118/80; PULSE 88; RESP 16; TEMP 36.9; O2SAT 99; BMI 32.8
--- NOTE | 2018-08-19 18:50 | CT_ITS ---
STUDY: CTA NECK WITH CONTRAST REASON FOR EXAM: Female, 37 years old. Migraine today. Frequent migraines over the past week. History of diabetes and hypertension. RADIATION DOSAGE (If Supplied By Facility): CTDIvol = ( 29.80 ) mGy, DLP = ( 1500.07 ) mGycm TECHNIQUE: CT angiography with multi-detector data acquisition was performed from the aortic arch to the skull base following intravenous administration of 100ml IV Isovue 370. MIP images were reconstructed from the axial data set. Post-processing of the angiographic images was performed, with multiplanar reformation and 3D reconstruction. Individualized dose optimization techniques were used for this CT. COMPARISON: None. FINDINGS: AORTIC ARCH: Normal visualized aortic arch. Normal origins of the brachiocephalic, left common carotid, and left subclavian arteries. RIGHT CAROTID ARTERIES: Normal right common carotid artery (CCA). Normal right common carotid bulb. Normal origin of the right internal carotid (ICA) artery without a hemodynamically significant stenosis. Normal visualized cervical portion of the right internal carotid artery. Normal origin of the right external carotid artery (ECA). LEFT CAROTID ARTERIES: Normal left common carotid artery (CCA). Normal left common carotid bulb. Normal origin of the left internal carotid (ICA) artery without a hemodynamically significant stenosis. Normal visualized cervical portion of the left internal carotid artery. Normal origin of the left external carotid artery (ECA). VERTEBRAL ARTERIES: There is enhancement within the bilateral vertebral arteries with a small left vertebral artery, and a dominant right vertebral artery. CT/CTA Neck W/WO Contrast IMPRESSION: Normal bilateral cervical carotid and vertebral arteries. Electronically Signed: Khoa Zee DO at 20:01 EDT Tel [phone], Service support ,
--- NOTE | 2018-08-19 18:50 | CT_ITS ---
STUDY: CTA OF THE BRAIN REASON FOR EXAM: Female, 37 years old. Migraine today. Frequent migraines over the last week. History of diabetes and hypertension. RADIATION DOSAGE (If Supplied By Facility): CTDIvol = ( 29.80 ) mGy, DLP = ( 1500.07 ) mGycm TECHNIQUE: CT angiography was performed with a multi-detector CT scanner. Data acquisition was obtained from the skull base through the vertex following intravenous administration of 100ml IV Isovue 370. MIP images were reconstructed from the axial data set. Post-processing of the angiographic images was performed, with multiplanar reformation and 3D reconstruction. Individualized dose optimization techniques were used for this CT. COMPARISON: None. FINDINGS: Normal bilateral petrous carotid arteries. Normal right cavernous carotid artery with a normal supraclinoid bifurcation. Normal left cavernous carotid artery with a normal supraclinoid bifurcation. Normal right A1 segments of the anterior cerebral artery. Normal left A1 segments of the anterior cerebral artery. Normal intact anterior communicating artery (ACOM). Normal bilateral A2 segments of the anterior cerebral arteries. Normal right M1 and M2 segments of the middle cerebral arteries, with a normal M1 bifurcation. Normal left M1 and M2 segments of the middle cerebral arteries, with a normal M1 bifurcation. There is non-visualization of the right posterior communicating artery (PCOM). There is non-visualization of the left posterior communicating artery (PCOM). There is a small atretic left vertebral artery with a dominant right vertebral artery. Normal basilar artery with a normal basilar bifurcation. The visualized bilateral superior cerebellar (SCA) arteries are normal. Normal bilateral P1, P2 and visualized P3 segments of the posterior cerebral arteries. There is no demonstrated aneurysm of the [place] of [place]. There is no demonstrated abnormality of the visualized brain. CT/CTA Head W/WO Contrast IMPRESSION: Normal [place] of [place] without a demonstrated aneurysm or hemodynamically significant stenosis. Electronically Signed: Khoa Zee DO at 19:56 EDT Tel [phone], Service support ,
--- NOTE | 2018-08-19 18:53 | ED.DCSUM_ITS ---
- ER Visit Summary Date of Service: 08/19/18 Chief Complaint: Headache History of Present Illness: The patient is a 37 F presenting with headache. She states this started 10 days ago. Pain was gradual in onset. She has a history of migraine headaches. She was seen in the ED on . She was treated with Toradol, Reglan, steroids. She states her pain persists. She follows with Dr. Martinez. She states he is in the process of getting approval for an MRI. She has nausea with no vomiting. She denies fever. Denies numbness or weakness. Denies other complaints. Physical Examination: Vitals are stable. Patient is afebrile. Alert no acute distress. HEENT exam is unremarkable. Neck is supple. No meningismus Lungs are clear and equal bilaterally. Heart is regular rate and rhythm. Abdomen is soft nontender nondistended. Extremities are unremarkable. Skin is warm and dry. No focal neurologic deficit. Remainder of exam is unremarkable. Emergency Department Course and Treatment: Patient was given Reglan IV with some improvement. CTA head and neck show no acute process. She was then given Toradol and Decadron which she states have helped her in the past. She has improvement of her symptoms. She states the pain is now tolerable and she is requesting discharge home. She is advised to follow-up with her neurologist. Advised return to ED if worsening complaints. Disposition: Discharge home Impression: Headache This note was generated with [employer] dictation software. It may contain incorrect words, spelling, and punctuation that were not noted in review of the chart prior to signing ED Disposition - Plan for ED Patient: Instructions: HEADACHE, Unspecified Referrals: Berry Martinez MD [STAFF PHYSICIAN] - Shirlene George MD [Primary Care Provider] -
[2018-08-19] MEDS: Metoclopramide 10 MG/2 ML Vial IV (19:15)
[2018-08-19] MEDS: dexAMETHasone 10 MG/ML Vial IV (20:21)
[2018-08-19] MEDS: Ketorolac 30 MG/ML Syringe IV (20:21)
[2018-08-19 20:54] VITALS: BP 101/56; PULSE 59; RESP 18; O2SAT 96
--- NOTE | 2018-08-19 21:03 | ED.DEP ---
ED Disposition - Plan for ED Patient: Instructions: HEADACHE, Unspecified Referrals: Shirlene George MD [Primary Care Provider] - Berry Martinez MD [STAFF PHYSICIAN] -
== END 2018-08-19 21:15 | disposition home or self-care (01) ==
LOC: ED 19:45
PROVIDERS: Emergency Provider Emergency Medicine; Family Provider Internal Medicine; PCP Internal Medicine
DX: R51 Headache (principal)
CPT/HCPCS: 70496; 70498; 96374; 96375; 99284; Q9967; A4216

== ENCOUNTER 2018-08-28 18:54 | Emergency (ER) | payer MEDICAID, SELFPAY ==
[2018-08-28 18:55] VITALS: BP 120/75; PULSE 79; RESP 16; TEMP 36.6; O2SAT 100; BMI 32.3
[2018-08-28] MEDS: Metoclopramide 10 MG Tablet PO (20:26)
[2018-08-28] MEDS: Ketorolac 30 MG/ML Syringe IM (20:26)
[2018-08-28] MEDS: Divalproex Sodium 250 MG Tablet 500 MG PO (20:26)
--- NOTE | 2018-08-28 21:10 | ED.DCSUM_ITS ---
- ER Visit Summary Date of Service: 08/28/18 Chief Complaint: [Headache] History of Present Illness: The patient is a 37 F [presents to the emergency department with a headache that started 3 weeks ago. Patient states that she has been coming to the ER frequently for this and is only getting temporary reli ef but then the headache comes right back. Patient believes that this is due to the fact that she has not had her Botox injection more than 24 weeks. Patient is scheduled later in August to have her Botox injections. Patient also describes some blurry vision from her left eye for the last 3 weeks and she seen an eye doctor for it. Patient also sees a neurologist. Patient was seen in the emergency department 3 days ago and had CTA of the brain that was unremarkable. Headache is typical of her migraines other than the blurred vision in the left eye. Patient had nausea and some photophobia. Denies any head trauma. She denies any recent illness.] Physical Examination: [HEENT-PERRLA, EOMI. Cranial nerves II through XII grossly intact. TMs clear. Mucous membranes moist. No adenopathy. Cardiovascular-regular rate and rhythm without murmur or ectopy Lungs-clear to auscultation, chest wall stable without crepitus or subcu emphysema Abdomen-normoactive bowel sounds, soft, nontender, no rebound or rigidity, no peritoneal signs. Neuro [id number] and heel maki testing within normal limits, negative Romberg, negative pronator, fundi benign Extremities-intact ?4, normal range of motion, normal pulses, atraumatic] Test Results: [None indicated] Emergency Department Course and Treatment: [Patient refused IV as she is a difficult IV stick and preferred oral and IM injections. Patient was given Toradol 30 mg IM as well as Reglan 10 mg p.o. and Depakote 500 mg p.o. Patient did have some pain relief with that. At this point she would like to go home.] Treatment Plan: [Low up with neurology. She is also scheduled to start a Medrol Dosepak which she has at home.] Disposition: [Discharged home in stable condition] Impression: [Acute exacerbation of chronic migraine] This note was generated with [employer] software. It may contain incorrect words, spelling, and punctuation that were not noted in review of the chart prior to signing ED Disposition - Plan for ED Patient: Referrals: Shirlene George MD [Primary Care Provider] -
--- NOTE | 2018-08-28 21:12 | ED.DEP ---
ED Disposition - Plan for ED Patient: Instructions: HEADACHE, Migraine (Classical) Referrals: Shirlene George MD [Primary Care Provider] - Additional Instructions: See your Neurologist in 5-7 days
--- NOTE | 2018-08-28 21:27 | ED.RN ---
THIS RN IN TO START IV AT APPROX 1930, PT DECLINES IV STATES SHE IS 'SAVING HER VEINS FOR INFUSIONS LATER IN WEEK. PT STATES SHE WANTS TO TRY SOMETHING NEW AND DIFFERENT FOR HEADACHE TREATMENT. PT STATES SHE WANTS SOME TIME TO THINK ABOUT TREATMENT PLAN. THIS RN ADVISED TO RING CALL LIGHT WHEN READY. THIS RN BACK IN ROOM AFTER 330 MIN, PT STATE SHE STILL CAN'T DECIDE IF SHE WANTS ANYTHING DONE. ENCOURAGED PT TO MAKE DECISION ON TX, PT STATES SHE MAY JUST LEAVE SINCE SHE DOESN'T WANT ANYTHING DONE. PT THEN CHANGED MIND, REQUESTED TO SPEAK TO AGAIN. NOTIFIED OF ABOVE.
== END 2018-08-28 21:27 | disposition home or self-care (01) ==
LOC: ED 19:21
PROVIDERS: Emergency Provider Emergency Medicine; Family Provider Internal Medicine; PCP Internal Medicine
DX: G43.909 Migraine, unspecified, not intractable, without status migrainosus (principal); E11.9 Type 2 diabetes mellitus without complications; Z79.84 Long term (current) use of oral hypoglycemic drugs; Z79.899 Other long term (current) drug therapy
CPT/HCPCS: 96372; 99283

== ENCOUNTER 2019-03-06 19:37 | Inpatient (IN) | payer MEDICAID, SELFPAY ==
[2019-03-06 19:38] VITALS: BP 120/74; PULSE 112; RESP 18; TEMP 36.8; O2SAT 100; BMI 31.7
--- NOTE | 2019-03-06 20:03 | EKG12_ITS ---
Test Reason : SOB Blood Pressure : / mmHG Vent. Rate : 089 BPM Atrial Rate : 089 BPM P-R Int : 158 ms QRS Dur : 070 ms QT Int : 366 ms P-R-T Axes : 072 053 055 degrees QTc Int : 445 ms Normal sinus rhythm Low voltage QRS Borderline ECG Confirmed by ERIKA STONE, IAN ([id number]), development editor GLORY SUAZO ([id number]) on 03/10/2019 10:16:29 AM Referred By: LOAN Confirmed By:IAN JAMES MD
--- NOTE | 2019-03-06 20:04 | CT_ITS ---
STUDY: CTA CHEST REASON FOR EXAM: Female, 38 years old. DX WITH PNEUMONIA YESTERDAY, INCREASED SOB TODAY. RADIATION DOSAGE (If Supplied By Facility): CTDIvol = ( 10.08 ) mGy, DLP = ( 549.94 ) mGycm TECHNIQUE: The examination was performed with the intravenous administration of IV 100 ML ISOVUE 370.. Post-processing of the angiographic images was performed, with multiplanar reformation and 3D reconstruction. Individualized dose optimization techniques were used for this CT. COMPARISON: None. FINDINGS: Normal enhancement of the main pulmonary artery and right and left pulmonary arteries. There is limited enhancement of the bilateral peripheral pulmonary arteries. There are several ill-defined regions are of decreased enhancement of bilateral pulmonary arteries consistent with embolism versus artifact, including on series 2 images 135 through 156. Normal thoracic aorta and visualized great vessels. There is no demonstrated aortic dissection. Normal heart and pericardium. Normal mediastinum. Normal hilar regions. Normal visualized trachea and bronchi. The lungs are well expanded. There is mild emphysematous change of the lungs. Normal pleura. Normal chest wall structures. Normal osseous structures. Normal visualized upper abdomen. CT/CTA Chest W/WO Contrast IMPRESSION: Several regions of diminished enhancement of the pulmonary arteries with embolism versus artifact. Emphysematous change Electronically Signed: Ajit Burk MD at 21:58 EST , Service support ,
--- NOTE | 2019-03-06 20:05 | ED.VIS.GEN ---
History of Present Illness Chief Complaint: Shortness of Breath Informant: Patient Onset: Days Context: Gradual Onset Timing: Waxes and wanes Current Severity: Mild Maximum Severity: Moderate Narrative: Patient presents with worsened shortness of breath with recent diagnosis of pneumonia. She reports getting ill 7 days ago. She had cough, congestion, fever at home. She was seen by her PCP 2 days ago. Chest x-ray revealed right-sided infiltrate. She was started on Augmentin and prednisone. Patient reports having more shortness of breath. Her pulse ox at home was reportedly reading 86%. She did not bring her machine along to compare to ours. She reports chest heaviness. - Past Medical History (1) Type 2 diabetes mellitus Status: Chronic (2) Hyperlipidemia Status: Chronic (3) Gastroesophageal reflux disease Status: Chronic (4) Benign hypertension Status: Chronic Past Medical History - Allergies and Home Meds Allergies/Adverse Reactions: Allergies atorvastatin [From Lipitor] Allergy (Verified 03/06/19 19:40) Rash ciprofloxacin [From Cipro] Allergy (Verified 03/06/19 19:40) Anaphylaxis ciprofloxacin HCl [From Cipro] Allergy (Verified 03/06/19 19:40) Anaphylaxis strawberry Allergy (Verified 03/06/19 19:40) Hives Sulfa (Sulfonamide Antibiotics) Allergy (Verified 03/06/19 19:40) Shortness of breath tomato Allergy (Verified 03/06/19 19:40) Food Allergy tramadol Allergy (Verified 03/06/19 19:40) Hives wheat Allergy (Verified 03/06/19 19:40) Food Allergy adhesive Adverse Reaction (Verified 03/06/19 19:40) Other albuterol Adverse Reaction (Verified 03/06/19 19:40) Other aspirin Adverse Reaction (Verified 03/06/19 19:40) Nausea/Vom/Diarrhea diphenhydramine [From Benadryl] Adverse Reaction (Verified 03/06/19 19:40) Shortness of breath duloxetine [From Cymbalta] Adverse Reaction (Verified 03/06/19 19:40) Other morphine Adverse Reaction (Verified 03/06/19 19:40) Shortness of breath nickel Adverse Reaction (Verified 03/06/19 19:40) Rash nifedipine Adverse Reaction (Verified 03/06/19 19:40) Chest tightness Opioids - Morphine Analogues Adverse Reaction (Verified 03/06/19 19:40) Inflammation of vein sumatriptan [From Imitrex] Adverse Reaction (Verified 03/06/19 19:40) Vomiting sumatriptan succinate [From Imitrex] Adverse Reaction (Verified 03/06/19 19:40) Vomiting topiramate [From Topamax] Adverse Reaction (Verified 03/06/19 19:40) Other venlafaxine [From Effexor] Adverse Reaction (Verified 03/06/19 19:40) Other Prior records reviewed: Yes Surgical History: noncontributory, - - Gastric sleeve surgery; nasal turbinates surgery with deviation of septum; cyst removed from eyelid. Balloon sinuplasty; pilonidal cyst removal from buttocks. Smoking Status: Never smoker - Family History Maternal Family History: Reports: Cancer - Colon, Diabetes Paternal Family History: Reports: - - Patient does not know about his paternal medical history. Review of Systems General: Reports: Fever Eyes: Denies: Visual changes - bilaterally ENT: Denies: Bilateral ear pain Cardiovascular: Reports: Chest pain Respiratory: Reports: Dyspnea, Cough Gastrointestinal: Denies: Abdominal pain, Nausea Genitourinary: Denies: Dysuria Musculoskeletal: Reports: Myalgias Neurological: Denies: Headache Allergy: Denies: Uticaria Physical Exam Vital Signs/Narrative: Vital Signs Temp Pulse Resp BP Pulse Ox 03/06/19 19:38 98.2 F 112 H 18 120/74 100 Inital Vital Signs reviewed: Yes General: Well nourished, Well developed Head: Normocephalic ENT: Moist mucous membranes Neck: Supple Cardiovascular: Tachycardia Respiratory: No distress, CTA bilaterally Abdomen: Soft, Nontender Skin: Normal color Neurological: Alert, Oriented x3 Psychological: - - Anxious Diagnostic/Tx/Re-eval Impressions Chest CTA 03/06/19 20:04 IMPRESSION: Several regions of diminished enhancement of the pulmonary arteries with embolism versus artifact. Emphysematous change Electronically Signed: Ajit Burk MD at 21:58 EST , Service support , 03/06/19 20:04 CTA Chest W/WO Contrast [CT] Stat Laboratory Results 03/06/19 03/06/19 20:44 20:44 WBC 14.2 H RBC 5.33 Hgb 14.8 Hct 44.5 MCV 83.5 MCH 27.8 MCHC 33.3 RDW Std Deviation 37.4 RDW Coeff of Yair 12.4 Plt Count 322 MPV 9.1 Immature Gran % (Auto) 0.400 Neut % (Auto) 60.4 Lymph % (Auto) 31.9 [place] % (Auto) 5.2 Eos % (Auto) 1.8 Baso % (Auto) 0.3 Absolute Neuts (auto) 8.6 H Absolute Lymphs (auto) 4.52 H Nucleated RBC % 0 Sodium 137 Potassium 3.5 Chloride 106 Carbon Dioxide 22.0 Anion Gap 9 BUN 16 Creatinine 0.76 Estim Creat Clear Calc 106.95 Est GFR (MDRD) Af Amer 110 Est GFR (MDRD) Non-Af 91 BUN/Creatinine Ratio 21.0 H Glucose 112 H Calcium 9.8 Troponin I < 0.015 - EKG Initial EKG Interpretation: Sinus Rhythm - Sinus at 89 with no acute ischemia. - Medical Decision Making Patient was given a dose of fentanyl for pain here. Vital signs have remained stable. CTA results are discussed with the patient. I see no evidence of infiltrate. CT reading comments on artifact versus pulmonary emboli. I went spoke with the CT techs who reviewed the images as well. I will cover her with a single dose of Lovenox tonight and see if we can have Dr. Salazar over read the CT in the morning. I will speak with the hospitalist regarding admission for further observation and treatment. ED Disposition - Plan for ED Patient: Disposition: [facility] Care [facility] Diagnosis: Dyspnea
[2019-03-06 20:27] VITALS: O2SAT 100
[2019-03-06] MEDS: 0.9% Normal Saline 1,000 ML 150 ML IV (20:52)
[2019-03-06] MEDS: fentaNYL 100 MCG/2 ML Ampul 25 MCG IV (20:52)
[2019-03-06 21:00] LABS: Absolute Lymphocyte Count 4.52 X10^3/uL (0.83-4.51); Absolute Neutrophil Count 8.6 X10^3/uL (2.0-7.7); Basophil# 0.04 X10^3/uL; Basophil% 0.3 % (0-1); Eosinophil# 0.25 X10^3/uL; Eosinophils% 1.8 % (0-5); Hematocrit 44.5 % (37-47); Hemoglobin 14.8 g/dL (12.0-15.0); Lymphocyte # 4.52 X10^3/ul (4.0); Lymphocyte % 31.9 % (19-41); Mean Corp Hgb Conc 33.3 g/dL (32-36); Mean Corpuscular Hgb 27.8 pg (27.0-32.0); Mean Corpuscular Volume 83.5 fL (81-99); Mean Platelet Vol. 9.1 fl (6.2-12.0); Monocyte# 0.74 X10^3/uL; Monocyte% 5.2 % (0-10); NRBC Flagged by Analyzer 0 % (0-5); Neutrophil # 8.59 X10^3/uL (2.7-7.7); Neutrophil % 60.4 % (47-70); Platelet Count 322 K/mm3 (150-450); RBC Distribution Width CV 12.4 % (11.6-14.6); RBC Distribution Width SD 37.4 fl (35.1-43.9); Red Blood Count 5.33 M/mm3 (4.2-5.4); White Blood Count 14.2 K/mm3 (4.4-11.0)
[2019-03-06 21:17] LABS: Anion Gap 9 (5-15); BUN 16 mg/dL (7-18); Calcium,Total 9.8 mg/dL (8.5-10.1); Chloride 106 mmol/L (98-107); Creatinine, Serum 0.76 mg/dL (0.55-1.02); EST Glomerular Filtration Rate 91 mL/min (>60); Est Glom Filt Rate - Afr Amer 110 mL/min (>60); Estimated Creatinine Clearance 106.95 ml/min; Glucose 112 mg/dL (74-106); Potassium 3.5 mmol/L (3.5-5.1); Sodium Level 137 mmol/L (136-145)
--- NOTE | 2019-03-06 22:23 | PCM.HP.STD ---
Problem List (1) Morbid obesity Status: Chronic (2) Type 2 diabetes mellitus Status: Chronic Qualifiers: Diabetes mellitus custodial insulin use: without custodial use Diabetes mellitus complication status: without complication Qualified Code(s): E11.9 - Type 2 diabetes mellitus without complications (3) Hyperlipidemia Status: Chronic Qualifiers: Hyperlipidemia type: unspecified Qualified Code(s): E78.5 - Hyperlipidemia, unspecified (4) Gastroesophageal reflux disease Status: Chronic Qualifiers: Esophagitis presence: esophagitis presence not specified Qualified Code(s): K21.9 - Gastro-esophageal reflux disease without esophagitis (5) Benign hypertension Status: Chronic (6) Dyspnea Status: Acute Qualifiers: Dyspnea type: unspecified Qualified Code(s): R06.00 - Dyspnea, unspecified History of Present Illness Date of Admission: 03/06/19 Chief Complaint: Shortness of breath The patient is a 38 year old F with past medical history of severe asthma, follows with in the outpatient, morbid obesity status post bariatric surgery 1 year ago, chronic migraine who has been having upper respiratory symptoms ongoing for about a week. She admits to some cough and congestion as well as fever. She saw her primary care doctor on 03/04/2019 and patient was diagnosed with possible pneumonia and started on Augmentin. She took about 5 doses of Augmentin so far. She reports feeling very short of breath with the least amount of exertion. Denies orthopnea or PND. She took a pulse ox at home and measured around 86%. She described associated chest heaviness that felt like an elephant is sitting on her chest, that is worse with deep breathing and moving around. Denies any cardiac history. Denies any leg swelling or palpitations or dizziness. In the ED showed temperature of 90 8.2F, heart rate 112, blood pressure 120/74, respiratory rate 18, SPO2 100% on room air. BC count 14.2, globin 14.8, platelet 2 arranged, d-dimer 0.36, BMP was unremarkable. Troponins x1 have been negative. EKG shows normal sinus rhythm with no acute ST-T changes. Past Medical History Past Medical History (Chronic Problems): Chronic Problems History of pilonidal cyst (Chronic) chronic vertigo/dizziness (Chronic) Chronic low back pain (Chronic) Morbid obesity (Chronic) Type 2 diabetes mellitus (Chronic) Hyperlipidemia (Chronic) Gastroesophageal reflux disease (Chronic) Benign hypertension (Chronic) Allergies atorvastatin [From Lipitor] Allergy (Verified 03/06/19 19:40) Rash ciprofloxacin [From Cipro] Allergy (Verified 03/06/19 19:40) Anaphylaxis ciprofloxacin HCl [From Cipro] Allergy (Verified 03/06/19 19:40) Anaphylaxis strawberry Allergy (Verified 03/06/19 19:40) Hives Sulfa (Sulfonamide Antibiotics) Allergy (Verified 03/06/19 19:40) Shortness of breath tomato Allergy (Verified 03/06/19 19:40) Food Allergy tramadol Allergy (Verified 03/06/19 19:40) Hives wheat Allergy (Verified 03/06/19 19:40) Food Allergy adhesive Adverse Reaction (Verified 03/06/19 19:40) Other albuterol Adverse Reaction (Verified 03/06/19 19:40) Other aspirin Adverse Reaction (Verified 03/06/19 19:40) Nausea/Vom/Diarrhea diphenhydramine [From Benadryl] Adverse Reaction (Verified 03/06/19 19:40) Shortness of breath duloxetine [From Cymbalta] Adverse Reaction (Verified 03/06/19 19:40) Other morphine Adverse Reaction (Verified 03/06/19 19:40) Shortness of breath nickel Adverse Reaction (Verified 03/06/19 19:40) Rash nifedipine Adverse Reaction (Verified 03/06/19 19:40) Chest tightness Opioids - Morphine Analogues Adverse Reaction (Verified 03/06/19 19:40) Inflammation of vein sumatriptan [From Imitrex] Adverse Reaction (Verified 03/06/19 19:40) Vomiting sumatriptan succinate [From Imitrex] Adverse Reaction (Verified 03/06/19 19:40) Vomiting topiramate [From Topamax] Adverse Reaction (Verified 03/06/19 19:40) Other venlafaxine [From Effexor] Adverse Reaction (Verified 03/06/19 19:40) Other Home Medications: Ambulatory Orders Medication Instructions Recorded Acetaminophen/Butalbital/Caffe 1 tablet PO Q4H PRN PRN 06/07/13 [Fioricet] Enalapril Maleate [Vasotec] 2.5 mg PO QHS 06/07/13 Levalbuterol HCl [Xopenex Aerosols] 0.63 mg INHALATION Q6H PRN PRN 06/07/13 Levalbuterol Tartrate [Xopenex Hfa 2 puff INHALATION Q4H PRN PRN 06/07/13 Inhaler] Triamcinolone Acetonide [Nasacort 2 spray NASAL DAILY 06/07/13 Aq Nasal [place]] metFORMIN (XR) [Glucophage Xr] 1,000 mg PO BID 06/07/13 Levonorgestrel [Mirena] 1 each IY X1 02/05/16 Pantoprazole Sodium [Protonix] 40 mg PO DAILY PRN 02/05/16 Montelukast [Singulair] 10 mg PO QHS 07/27/17 Ondansetron [Zofran Odt] 8 mg PO Q8H PRN PRN 04/26/18 Fluvoxamine Maleate 1.5 tab PO DAILY 06/29/18 Multivit-Min/Iron/Folic Acid/K 2 cap PO BID 06/29/18 [Bariatric Mv-Iron 45 mg Cap] Atomoxetine HCl [Strattera] 10 mg PO DAILY 03/06/19 Budesonide Aerosol [Pulmicort 0.5 mg INHALATION BID 03/06/19 Aerosol] Colesevelam HCl 1 - 2 tab PO BID 03/06/19 Fexofenadine HCl [Rola Allergy] 180 mg PO DAILY 03/06/19 Lorazepam [Ativan] 1 mg PO BID PRN PRN 03/06/19 Metaxalone 800 mg PO TID 03/06/19 Prednisone 40 mg PO DAILY 03/06/19 Surgical History: - - Gastric sleeve surgery; nasal turbinates surgery with deviation of septum; cyst removed from eyelid. Balloon sinuplasty; pilonidal cyst removal from buttocks. Psychiatric History: Anxiety, Attn. 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 Review of Systems Constitutional: Reports: Fatigue. Denies: Anorexia, Chills, Fever, Malaise, Weakness, Weight Change Eyes: Denies: Blurred vision, Cataracts, Conjunctivae Inflammation, Eyelid Inflammation, Pain, Redness, Vision Change HEENT: Denies: Difficulty Hearing, Difficulty Swallowing, Head Aches, Hearing Changes, Sinus Congestion, Sinus Drainage Cardiovascular: Reports: Chest Pain, Chest Pressure, Chest Tightness. Denies: Light Headedness, Orthopnea, Palpitations, Paroxysmal Noc. Dyspnea, Syncope Respiratory: Reports: Cough, Pleuritic Pain, Shortness of breath at rest, Shortness of breath upon exertion. Denies: Sputum production, Wheezing Gastrointestinal: Denies: Abdominal Pain, Constipation, Hematemesis, Hematochezia, Nausea, Vomiting Genitourinary: Denies: Dysuria, Frequency, Incontinence, Nocturia Musculoskeletal: Denies: Joint Pain, Joint stiffness, Joint swelling, Joint Tenderness Skin: Denies: Rash, Wounds Neurological: Denies: Balance problems, Blurred vision, Difficulty swallowing, Focal weakness, Headaches, Numbness, Tingling Psychiatric: Denies: Anxiety, Depression, Homicidal Ideations, Suicidal Ideations Hematologic/ Lymphatic: Denies: Easy Bruising, Easy Bleeding VTE Information - Inpt Only VTE Present on Admission: No VTE Pharm Prophylaxis ordered?: Yes Patient Problems: Active and Suspected Problems Dyspnea (Acute) - Physical Exam Vitals/I&O's: Vital Signs Temp Pulse Resp BP Pulse Ox 98.2 F 112 H 18 120/74 100 03/06/19 19:38 03/06/19 19:38 03/06/19 19:38 03/06/19 19:38 03/06/19 19:38 Oxygen Delivery Method Room Air Weight: 97.522 kg Body Mass Index (BMI) 31.7 General: Alert, Oriented x3, Cooperative, No apparent distress, - - appears HEENT: Atraumatic, PERRLA, EOMI, Normocephalic Oral: Moist Mucosa Neck: Supple Lungs: Clear to auscultation, Normal air movement Cardiovascular: Regular rate, Regular Rhythm, Normal S1, Normal S2, No murmurs Abdomen: Bowel Sounds Present, Soft, Non Tender, Non-Distended, No Hepato-splenomegaly Extremities: No edema Skin: No rashes Musculoskeletal: No Tenderness to Palpation of Joints or Extremities Lymphatic: No Cervical, Supraclavicular, or Inguinal Adenopathy Neurological: Cranial nerves II-XII grossly intact, Neuro grossly intact Psych/Mental Status: Normal Affect, Appropriate Laboratory Results 03/06/19 20:44: WBC 14.2 H, RBC 5.33, Hgb 14.8, Hct 44.5, MCV 83.5, MCH 27.8, MCHC 33.3, RDW Std Deviation 37.4, RDW Coeff of Yair 12.4, Plt Count 322, MPV 9.1, Immature Gran % (Auto) 0.400, Neut % (Auto) 60.4, Lymph % (Auto) 31.9, [place] % (Auto) 5.2, Eos % (Auto) 1.8, Baso % (Auto) 0.3, Absolute Neuts (auto) 8.6 H, Absolute Lymphs (auto) 4.52 H, Nucleated RBC % 0 03/06/19 20:44: Sodium 137, Potassium 3.5, Chloride 106, Carbon Dioxide 22.0, Anion Gap 9, BUN 16, Creatinine 0.76, Estim Creat Clear Calc 106.95, Est GFR (MDRD) Af Amer 110, Est GFR (MDRD) Non-Af 91, BUN/Creatinine Ratio 21.0 H, Glucose 112 H, Calcium 9.8, Troponin I < 0.015 Current Medications Sodium Chloride () 1,000 mls @ 150 mls/hr IV .Q6H40M [facility] Last Admin: 03/06/19 20:52 Dose: 150 mls/hr Documented by: Assessment/Plan All Active Problems Intractable abdominal pain (Acute) Dyspnea (Acute) 8 year old F with past medical history of severe asthma, follows with in the outpatient, morbid obesity status post bariatric surgery 1 year ago, chronic migraine who has been having upper respiratory symptoms ongoing for about a week and now comes in with progressive chest discomfort and shortness of breath. 1. Dyspnea, unclear etiology for now. Patient reports having low oxygen sats at home Oxygen levels have been above 98% since been in the ED Recently started on Augmentin by PCP [address] of the chest shows no pneumonia, probable PE. D-dimer is 0.36 Will hold Augmentin for now Patient given Lovenox 100 mg subcu x1 empirically Doppler ultrasound of lower extremities requested Would ask for CT of the chest re-read by radiologist in the morning Pulmonary consult, 2D echo, reassessment for ambulatory oxygen in a.m. Continue with levalbuterol breathing treatments 2. Leukocytosis likely secondary to recent steroids, will continue to trend 3. Obesity, status post bariatric surgery 1 year ago BMI is 30.6, continue on multivitamins and colesevelam 4. Type II DM, on metformin, status post bariatric surgery Hold metformin, continue with blood glucose checks and insulin sliding scale 5. History of allergy/asthma/anxiety/depression/chronic migraines, remains stable, continue home medications 6. DVT prophylaxis-patient has received Lovenox for now Code Visit Inpatient E&M: 46025 Init Hosp L2
[2019-03-06 22:38] VITALS: BP 116/80; PULSE 83; RESP 13; O2SAT 100
[2019-03-06] MEDS: Enoxaparin 100 MG/ML Syringe SC (22:42)
[2019-03-06 22:43] LABS: D-Dimer Quantitative (DVT/PE) 0.36 FEU/ug/m (0.27-0.49)
[2019-03-06 22:45] VITALS: BP 116/80; PULSE 86; RESP 16; TEMP 36.8; O2SAT 98
--- NOTE | 2019-03-06 23:31 | ECHOCS_ITS ---
Reason For Study: DYSPNEA/SOB Procedure This was a 2D Doppler, Color Flow transthoracic echocardiogram. The study was technically difficult. Contrast injection was performed. Exam performed portable in patient room. Left Ventricle Normal LV size. Left ventricular systolic function is normal. The estimated ejection fraction is 65 %. Transmitral doppler flow suggestive of impaired relaxation of left ventricle. No regional wall motion abnormalities noted. Right Ventricle Normal RV size. Normal systolic function. Atria Normal left atrium. Normal right atrium. No doppler evidence for ASD. Mitral Valve There is no mitral annular calcification. Mild focal mitral valve calcification of the anterior leaflet. Trivial mitral valve insufficiency. Tricuspid Valve Normal tricuspid valve. Trivial tricuspid valve insufficiency. Unable to estimate RV systolic pressure/pulmonary artery pressure due to technically difficult study. Aortic Valve The aortic valve is not well visualized. Pulmonic Valve The pulmonic valve is not well visualized. Great Vessels Normal sized aortic root. Pericardium/Pleural No pericardial effusion. Medication Diluted definity 3ml given slow IV push to enhance endocardial definition. MMode/2D Measurements & Calculations LVIDd: 3.3 cm IVSd: 0.70 cm Ao root diam: 3.0 cm LVIDs: 2.3 cm LVPWd: 0.88 cm RVDd: 2.7 cm FS: 29.3 % LAV(MOD-bp): 26.3 ml LVAd ap4: 25.4 cm2 SV(MOD-sp4): 43.4 ml LAV(MOD-bp) Indexed: 12.5 ml/m2 EDV(MOD-sp4): 71.8 ml LAV(MOD-sp2): 24.2 ml EDV(sp4-el): 74.2 ml LAV(MOD-sp4): 23.4 ml LVAs ap4: 14.0 cm2 ESV(MOD-sp4): 28.4 ml ESV(sp4-el): 30.2 ml EF(MOD-sp4): 60.5 % EF(sp4-el): 59.4 % SV(sp4-el): 44.1 ml LA A4 area: 11.5 cm2 LA dimension(2D): 3.0 cm RA A4 area: 9.1 cm2 Time Measurements MV dec time: 0.19 sec Doppler Measurements & Calculations MV E max dangelo: 78.6 cm/sec Lat Peak E' Dangelo: 18.6 cm/sec Med Peak E' Dangelo: 14.8 cm/sec MV A max dangelo: 80.2 cm/sec E/E' lat: 4.2 E/E' med: 5.3 MV E/A: 0.98 Ao V2 max: 118.7 cm/sec LV V1 max: 99.0 cm/sec PA V2 max: 104.5 cm/sec Ao max P.6 mmHg LV V1 max P.9 mmHg Interpretation Summary The study was technically difficult. Contrast injection was performed. Left ventricular systolic function is normal. The estimated ejection fraction is 65 %. Mild focal mitral valve calcification of the anterior leaflet. Trivial mitral valve insufficiency. Trivial tricuspid valve insufficiency. Unable to estimate RV systolic pressure/pulmonary artery pressure due to technically difficult study. Transmitral doppler flow suggestive of impaired relaxation of left ventricle Ordering Physician: Amina Aleman Referring Physician: STONEY BLUE Performed By: Berta Jaime RDCS
[2019-03-06 23:36] VITALS: BP 132/78; PULSE 89; RESP 18; TEMP 36.4; O2SAT 99
[2019-03-06 23:37] VITALS: BMI 31.7
[2019-03-06 23:44] VITALS: BMI 30.5
[2019-03-07] VITALS (15 sets, daily range): BP systolic 86–116; BP diastolic 50–73; PULSE 65–95; RESP 16–18; TEMP 36.4–37; O2SAT 93–99
[2019-03-07 00:30] LABS: Bedside Glucose 103 mg/dL (70-110)
[2019-03-07] MEDS: Lisinopril 2.5 MG Tablet PO ×2 (00:30→22:36)
[2019-03-07] MEDS: LORazepam 1 MG Tablet PO (00:35)
[2019-03-07] MEDS: oxyCODONE 5 MG Tablet PO (06:29)
[2019-03-07] MEDS: 0.9% Normal Saline 1,000 ML 100 ML IV ×2 (06:29→15:20)
[2019-03-07 06:40] LABS: Bedside Glucose 112 mg/dL (70-110)
--- NOTE | 2019-03-07 06:43 | NURSING ---
notified resp therapy of pt requesting breathing tx
[2019-03-07] MEDS: LEVALBUTEROL HCL 0.63 MG/3 ML VIAL.NEB IH (06:52)
[2019-03-07] MEDS: Fluticasone 0.05% 1 SPRAY NASAL.SRY 2 SPRAY NASAL (08:46)
--- NOTE | 2019-03-07 10:39 | CASEMGMT ---
RN CM Assessment Introduced role of RN CM to patient.? Patient is alert, oriented and able?to participate in RN CM Assessment. ?Care providers, pharmacy, and demographics verified. Presentation: Upper respiratory symptoms for about a week Admit Dx: Acute Hypoxia, PE Re-Admit: No Barriers/Issues: None PCP: Shirlene George Specialists: Neuro at [facility] in [place]- Dr Berry Martinez, Cardio- Dr Sparks, Pulm at [facility]- Dr Moseley, Bariatric Surgery- Dr Tommy Acevedo with [facility]. Rheum- Dr Cooney (Wants to find a doctor closer to home), GI/ID- Dr Sewell? at [facility] Preferred Pharmacy: [facility]. Uses [place] for her maintenance medications. Insurance: [employer] Rx Benefit: Yes? ?LNOK: Mother Hope Winters LW/HPOA: No, states would like to complete during this admission. SERENE Baeza made aware. Living Arrangements:? Lives with her paul in a H, 1-2 small steps to enter home ADL?s: Independent with ambulation and ADLs Transportation: Patient drives, paul has been driving recently during this illness. Denies transportation issues. DME: Glucometer, Nebulizer, Shower Chair (does not use), Cane (does not use), Abd binders HHC: Past-cannot recall agency SNF: None Goal: Home and does not think will have any needs. Denies any questions, concerns, issues, or needs with DC planning at this time. Aware CM remains available for any emerging needs. NANCY Morales DC PLAN: Home with no anticipated needs identified at this time. NANCY Morales
[2019-03-07 11:46] LABS: Bedside Glucose 104 mg/dL (70-110)
--- NOTE | 2019-03-07 11:59 | CASEMGMT ---
SW assisted pt in completing LW/POA forms, SW gave pt originals and copies, and placed copies in paper chart. Pt put signicant other Adria De Santiago as healthcare POA and mother Hope Vlaente as alternate. TRISTAN Mireles
--- NOTE | 2019-03-07 12:28 | CON.PCM_ITS ---
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: without care home use Diabetes mellitus complication status: without complication Qualified Code(s): E11.9 - Type 2 diabetes mellitus without complications (7) Hyperlipidemia Status: Chronic Qualifiers: Hyperlipidemia type: unspecified Qualified Code(s): E78.5 - Hyperlipidemia, unspecified (8) Gastroesophageal reflux disease Status: Chronic Qualifiers: Esophagitis presence: esophagitis presence not specified Qualified Code(s): K21.9 - Gastro-esophageal reflux disease without esophagitis (9) Benign hypertension Status: Chronic Reason for Consult Date of Consultation: 03/07/19 Reason for Consultation: Shortness of breath History of Present Illness: The patient is a 38 year old F, with past medical history listed below, who presented to [facility] on 03/06/2019 secondary to worsening shortness of breath. Patient had reported a recent diagnosis of pneumonia associated with cough, congestion and fever approximately 7 days ago. Patient had been seen by her primary care physician and initiated on Augmentin and prednisone. Patient stated that she had some improvement, but had noted a pulse oximetry of 86% at home and presented to the ER for evaluation. Patient had reported a chest heaviness or constriction feeling on the left and center of the chest. Patient did not report any radiation and this had not been associated with diaphoresis or nausea. Patient stated it did not feel like my previous asthma issues. In the ER, patient had a significant work-up including a CT scan of the chest and fentanyl for pain. Laboratory work-up was relatively unremarkable except for a negative d-dimer. CTA of the chest showed a possible pulmonary emboli, so patient was given Lovenox and admitted to the hospital for further evaluation. On my evaluation, patient reported that she was somewhat improved compared to previous. Patient had all the lights out but denied any headache. Patient states that she had not gotten much sleep lately and was trying to take a nap. Patient does state that she has a history of asthma and typically follows at the [facility]. Patient was very clear that this is a different type of sensation as opposed to her previous asthma exacerbations. Patient also states that she had improvement in her symptomatology following Augmentin and prednisone, but this chest pain came on abruptly on the day of presentation. Patient denies any hemoptysis, melena, hematochezia or epistaxis. Patient states she has been compliant with her asthma type medications. Patient has positive sick contacts. Review of systems otherwise negative from a constitutional, HEENT, respiratory, cardiovascular, GI, genitourinary, musculoskeletal, skin, neurologic, psychiatric and hematologic system unless stated above. Past Medical History Past Medical History (Chronic Problems): Chronic Problems History of pilonidal cyst (Chronic) chronic vertigo/dizziness (Chronic) Chronic low back pain (Chronic) Morbid obesity (Chronic) Type 2 diabetes mellitus (Chronic) Hyperlipidemia (Chronic) Gastroesophageal reflux disease (Chronic) Benign hypertension (Chronic) Allergies atorvastatin [From Lipitor] Allergy (Verified 03/06/19 19:40) Rash ciprofloxacin [From Cipro] Allergy (Verified 03/06/19 19:40) Anaphylaxis ciprofloxacin HCl [From Cipro] Allergy (Verified 03/06/19 19:40) Anaphylaxis strawberry Allergy (Verified 03/06/19 19:40) Hives Sulfa (Sulfonamide Antibiotics) Allergy (Verified 03/06/19 19:40) Shortness of breath tomato Allergy (Verified 03/06/19 19:40) Food Allergy tramadol Allergy (Verified 03/06/19 19:40) Hives wheat Allergy (Verified 03/06/19 19:40) Food Allergy adhesive Adverse Reaction (Verified 03/06/19 19:40) Other albuterol Adverse Reaction (Verified 03/06/19 19:40) Other aspirin Adverse Reaction (Verified 03/06/19 19:40) Nausea/Vom/Diarrhea diphenhydramine [From Benadryl] Adverse Reaction (Verified 03/06/19 19:40) Shortness of breath duloxetine [From Cymbalta] Adverse Reaction (Verified 03/06/19 19:40) Other morphine Adverse Reaction (Verified 03/06/19 19:40) Shortness of breath nickel Adverse Reaction (Verified 03/06/19 19:40) Rash nifedipine Adverse Reaction (Verified 03/06/19 19:40) Chest tightness Opioids - Morphine Analogues Adverse Reaction (Verified 03/06/19 19:40) Inflammation of vein sumatriptan [From Imitrex] Adverse Reaction (Verified 03/06/19 19:40) Vomiting sumatriptan succinate [From Imitrex] Adverse Reaction (Verified 03/06/19 19:40) Vomiting topiramate [From Topamax] Adverse Reaction (Verified 03/06/19 19:40) Other venlafaxine [From Effexor] Adverse Reaction (Verified 03/06/19 19:40) Other Home Medications: Ambulatory Orders Medication Instructions Recorded Acetaminophen/Butalbital/Caffe 1 tablet PO Q4H PRN PRN 06/07/13 [Fioricet] Enalapril Maleate [Vasotec] 2.5 mg PO QHS 06/07/13 Levalbuterol HCl [Xopenex Aerosols] 0.63 mg INHALATION Q6H PRN PRN 06/07/13 Levalbuterol Tartrate [Xopenex Hfa 2 puff INHALATION Q4H PRN PRN 06/07/13 Inhaler] Triamcinolone Acetonide [Nasacort 2 spray NASAL DAILY 06/07/13 Aq Nasal [place]] metFORMIN (XR) [Glucophage Xr] 1,000 mg PO BID 06/07/13 Levonorgestrel [Mirena] 1 each IY X1 02/05/16 Pantoprazole Sodium [Protonix] 40 mg PO DAILY PRN 02/05/16 Montelukast [Singulair] 10 mg PO QHS 07/27/17 Ondansetron [Zofran Odt] 8 mg PO Q8H PRN PRN 04/26/18 Fluvoxamine Maleate 1.5 tab PO QHS 06/29/18 Multivit-Min/Iron/Folic Acid/K 2 cap PO BID 06/29/18 [Bariatric Mv-Iron 45 mg Cap] Atomoxetine HCl [Strattera] 18 mg PO DAILY 03/06/19 Budesonide Aerosol [Pulmicort 0.5 mg INHALATION BID 03/06/19 Aerosol] Cetirizine HCl/Pseudoephedrine 1 ea PO DAILY 03/06/19 [All Day Allergy-D Tablet] Colesevelam HCl 1 - 2 tab PO BID PRN 03/06/19 Lorazepam [Ativan] 1 mg PO BID PRN PRN 03/06/19 Prednisone 40 mg PO DAILY 03/06/19 Surgical History: - - Gastric sleeve surgery; nasal turbinates surgery with deviation of septum; cyst removed from eyelid. Balloon sinuplasty; pilonidal cyst removal from buttocks. Psychiatric History: Anxiety, Attn. 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 Review of Systems Comment: See HPI Patient Problems: Active and Suspected Problems Dyspnea (Acute) Chest pain (Acute) Objective: CTA of the chest was personally reviewed. There are some areas of possible emphysematous changes without obvious infiltrates. Patient does have some bronchial thickening, but does not reach criteria for bronchiectasis in my opinion. No significant mediastinal adenopathy appreciated. There is a previous pulmonary function test showing positive bronchial reactivity in 2017. - Physical Exam Vitals/I&O's: Vital Signs Temp Pulse Resp BP Pulse Ox 36.4 C L 92 16 94/53 L 95 03/07/19 07:15 03/07/19 11:05 03/07/19 07:15 03/07/19 07:15 03/07/19 08:49 Oxygen Flow Rate (L/min) [ 0 AMBULATING on Room Air] Oxygen Flow Rate (L/min) [At 0 REST on Room Air] Oxygen Delivery Method Room Air Weight: 93.9 kg Body Mass Index (BMI) 30.5 Intake and Output for Last 24 Hours 03/05/19 03/06/19 03/07/19 23:59 23:59 23:59 Intake Total 432.5 / 432.5 120 / 120 Output Total 550 / 550 Balance 432.5 / 432.5 -430 / -430 General: Alert, Oriented x3, Cooperative, - - Mild distress, but no conversational dyspnea HEENT: Atraumatic, PERRLA, EOMI, Normocephalic, - - No scleral icterus or injection noted. No photophobia. Oral: Moist Mucosa, No Gingival or Mucosal Lesions/ Ulcerations Neck: Supple, No JVD, No Nodes, Trachea Midline Lungs: Clear to auscultation, Normal air movement, No rhonchi, No wheeze, No rales, - - Symmetric expansion. No dullness to percussion. Cardiovascular: Regular rate, Regular Rhythm, Normal S1, Normal S2, No murmurs, No rub noted, No Gallop Abdomen: Bowel Sounds Present, Soft, Non Tender, Non-Distended, Obese Extremities: No clubbing, No cyanosis, No edema, Capillary Refill Less than 3 Seconds Skin: No rashes, No breakdown Musculoskeletal: No Tenderness to Palpation of Joints or Extremities Lymphatic: No Cervical, Supraclavicular, or Inguinal Adenopathy Neurological: Cranial nerves II-XII grossly intact, Neuro grossly intact, Motor Exam 5/5 strength throughout Psych/Mental Status: Appropriate, Flat Affect Laboratory Results 03/06/19 20:44: WBC 14.2 H, RBC 5.33, Hgb 14.8, Hct 44.5, MCV 83.5, MCH 27.8, MCHC 33.3, RDW Std Deviation 37.4, RDW Coeff of Yair 12.4, Plt Count 322, MPV 9.1, Immature Gran % (Auto) 0.400, Neut % (Auto) 60.4, Lymph % (Auto) 31.9, Mckenzie % (Auto) 5.2, Eos % (Auto) 1.8, Baso % (Auto) 0.3, Absolute Neuts (auto) 8.6 H, Absolute Lymphs (auto) 4.52 H, Nucleated RBC % 0 03/06/19 20:44: Sodium 137, Potassium 3.5, Chloride 106, Carbon Dioxide 22.0, Anion Gap 9, BUN 16, Creatinine 0.76, Estim Creat Clear Calc 106.95, Est GFR (MDRD) Af Amer 110, Est GFR (MDRD) Non-Af 91, BUN/Creatinine Ratio 21.0 H, Glucose 112 H, Calcium 9.8, Troponin I < 0.015 03/06/19 20:44: D-Dimer Quant (PE/DVT) 0.36 03/07/19 00:13: POC Glucose 103 03/07/19 00:26: Troponin I < 0.015 03/07/19 03:28: Troponin I < 0.015 03/07/19 06:35: POC Glucose 112 H 03/07/19 11:17: POC Glucose 104 Current Medications Acetaminophen/Butalbital/Caffeine (Fioricet) 1 tablet PO Q4H PRN PRN PRN Reason: HEADACHE Colesevelam HCl (Welchol) 625 - 1,875 mg PO BID PRN PRN PRN Reason: diarrhea Fluticasone Propionate (Flonase Nasal [place]) 2 spray NASAL DAILY [facility] Last Admin: 03/07/19 08:46 Dose: 2 spray Documented by: Fluvoxamine Maleate (Luvox) mg PO DAILY [facility] Glucagon () 1 mg IM .X1 PRN PRN Reason: Hypoglycemia Dextrose (Dextrose 10%-Water) 250 mls @ 999 mls/hr IV .Q16M PRN; Protocol PRN Reason: HYPOGLYCEMIA Sodium Chloride () 1,000 mls @ 100 mls/hr IV .Q10H [facility] Last Admin: 03/07/19 06:29 Dose: 100 mls/hr Documented by: Insulin Human Lispro (Humalog Kwikpen (Bkc)) 0 unit SC ACHS [facility]; Protocol Last Admin: 03/07/19 11:18 Dose: Not Given Documented by: Levalbuterol HCl (Xopenex) 0.63 mg IH Q6H PRN PRN PRN Reason: WHEEZING Last Admin: 03/07/19 06:52 Dose: 0.63 mg Documented by: Lisinopril (Zestril) 2.5 mg PO QHS [facility] Last Admin: 03/07/19 00:30 Dose: 2.5 mg Documented by: Loratadine (Claritin) 10 mg PO DAILY [facility] Last Admin: 03/07/19 08:48 Dose: Not Given Documented by: Lorazepam (Ativan) 1 mg PO BID PRN PRN PRN Reason: ANXIETY Last Admin: 03/07/19 00:35 Dose: 1 mg Documented by: Metaxalone (Skelaxin) 800 mg PO TID PRN PRN PRN Reason: muscle spasms Montelukast Sodium (Singulair) 10 mg PO QHS [facility] Non-Formulary Medication (Atomoxetine Hcl [Strattera]) 10 mg PO DAILY [facility] Ondansetron HCl (Zofran) 4 mg IV Q6H PRN PRN PRN Reason: NAUSEA/VOMITING Oxycodone HCl (Oxyir) 5 mg PO Q6H PRN PRN PRN Reason: Pain Score [id number] Last Admin: 03/07/19 06:29 Dose: 5 mg Documented by: Pantoprazole Sodium (Protonix) 40 mg PO DAILY PRN PRN PRN Reason: REFLUX Sodium Chloride () 10 - 40 ml IV UD PRN PRN Reason: SALINE FLUSH Clinical Impression(s) from Imaging Studies Chest CTA 03/06/19 20:04 IMPRESSION: Several regions of diminished enhancement of the pulmonary arteries with embolism versus artifact. Emphysematous change Electronically Signed: Ajit Burk MD at 21:58 EST , Service support , ADDENDUM: 03/07/19 0817 Assessment/Plan All Active Problems Intractable abdominal pain (Acute) Dyspnea (Acute) Chest pain (Acute) RECOMMENDATIONS: 1. Discontinue lower extremity Doppler order 2. Would not recommend systemic anticoagulation 3. Reinitiation of inhaled corticosteroid, no systemic steroids 4. Await echocardiogram, possible stress test 5. Consider cardiology evaluation IMPRESSIONS: 1. Hypoxia/shortness of breath/history of asthma Patient with no wheezing on exam on my evaluation. Patient is on significant medications for a history of asthma and is followed by the [facility]. Patient has been on steroids recently and appears to be back to baseline from that perspective. Some concern for possible atypical angina. Patient would have increased risk for possible coronary disease. Other possible etiology could be pulmonary hypertension. Echocardiogram is currently pending. However, with a negative d-dimer, systemic clot is unlikely. Would not recommend continuation of systemic anticoagulation. Patient does not have significant wheezing on exam to suggest systemic steroids would be indicated. Reasonable to continue with baseline inhaled corticosteroids. Can check a walking oximetry once patient has been ruled out for a cardiac etiology. 2. Type 2 diabetes mellitus/hyperlipidemia/GERD/hypertension/obesity Complicates care, management, recovery and prognosis. Okay to continue with baseline medications from my perspective. Blood sugars appear to be controlled at this time. There should be no significant change with inhaled corticosteroids only. Code Visit Inpatient E&M: 52653 Init Hosp L3
--- NOTE | 2019-03-07 13:46 | PCM.PN.HOSP ---
<Richard Cavanaugh - Last Filed: 03/07/19 13:46> Patient Problems: Active and Suspected Problems Dyspnea (Acute) Chest pain (Acute) Subjective: Pt complained of chest pressure and SOB. SOB improved since yesterday. No PE on CTA review. Pt has no prior blood clots. No fever/ chills. Nonproductive cough. No LE edema. No palpitations, dizziness, LH. She follows [facility] for pulmonology normally. Vitals/I&O's: Vital Signs Temp Pulse Resp BP Pulse Ox 98.1 F 83 16 87/50 L 95 03/07/19 13:15 03/07/19 13:15 03/07/19 13:15 03/07/19 13:15 03/07/19 13:15 Oxygen Flow Rate (L/min) [ 0 AMBULATING on Room Air] Oxygen Flow Rate (L/min) [At 0 REST on Room Air] Oxygen Delivery Method Room Air Weight: 207 lb 0.225 oz Body Mass Index (BMI) 30.5 Intake and Output for Last 24 Hours 03/05/19 03/06/19 03/07/19 23:59 23:59 23:59 Intake Total 432.5 / 432.5 360 / 360 Output Total 550 / 550 Balance 432.5 / 432.5 -190 / -190 General: Alert, Oriented x3, Cooperative HEENT: Atraumatic, PERRLA, EOMI, Normocephalic Neck: Supple, No JVD, Negative Carotid Bruits Lungs: Clear to auscultation, Normal air movement Cardiovascular: Regular rate, No murmurs Abdomen: Bowel Sounds Present, Soft, Non Tender Extremities: No edema, Capillary Refill Less than 3 Seconds Skin: No rashes, No breakdown Musculoskeletal: No Tenderness to Palpation of Joints or Extremities Neurological: Cranial nerves II-XII grossly intact Psych/Mental Status: Normal Affect, Appropriate, Alert and oriented to time, place, person, mood and affect Laboratory Results 03/06/19 20:44: WBC 14.2 H, RBC 5.33, Hgb 14.8, Hct 44.5, MCV 83.5, MCH 27.8, MCHC 33.3, RDW Std Deviation 37.4, RDW Coeff of Yair 12.4, Plt Count 322, MPV 9.1, Immature Gran % (Auto) 0.400, Neut % (Auto) 60.4, Lymph % (Auto) 31.9, Bonner % (Auto) 5.2, Eos % (Auto) 1.8, Baso % (Auto) 0.3, Absolute Neuts (auto) 8.6 H, Absolute Lymphs (auto) 4.52 H, Nucleated RBC % 0 03/06/19 20:44: Sodium 137, Potassium 3.5, Chloride 106, Carbon Dioxide 22.0, Anion Gap 9, BUN 16, Creatinine 0.76, Estim Creat Clear Calc 106.95, Est GFR (MDRD) Af Amer 110, Est GFR (MDRD) Non-Af 91, BUN/Creatinine Ratio 21.0 H, Glucose 112 H, Calcium 9.8, Troponin I < 0.015 03/06/19 20:44: D-Dimer Quant (PE/DVT) 0.36 03/07/19 00:13: POC Glucose 103 03/07/19 00:26: Troponin I < 0.015 03/07/19 03:28: Troponin I < 0.015 03/07/19 06:35: POC Glucose 112 H 03/07/19 11:17: POC Glucose 104 Current Medications Acetaminophen/Butalbital/Caffeine (Fioricet) 1 tablet PO Q4H PRN PRN PRN Reason: HEADACHE Budesonide (Pulmicort Aerosol) 0.5 mg INHALATION BID.RT [facility]AC[facility] Colesevelam HCl (Welchol) 625 - 1,875 mg PO BID PRN PRN PRN Reason: diarrhea Fluticasone Propionate (Flonase Nasal [place]) 2 spray NASAL DAILY [facility] Last Admin: 03/07/19 08:46 Dose: 2 spray Documented by: Fluvoxamine Maleate (Luvox) mg PO DAILY [facility] Glucagon () 1 mg IM .X1 PRN PRN Reason: Hypoglycemia Dextrose (Dextrose 10%-Water) 250 mls @ 999 mls/hr IV .Q16M PRN; Protocol PRN Reason: HYPOGLYCEMIA Sodium Chloride () 1,000 mls @ 100 mls/hr IV .Q10H [facility] Last Admin: 03/07/19 06:29 Dose: 100 mls/hr Documented by: Insulin Human Lispro (Humalog Kwikpen (Bkc)) 0 unit SC ACHS [facility]; Protocol Last Admin: 03/07/19 11:18 Dose: Not Given Documented by: Levalbuterol HCl (Xopenex) 0.63 mg IH Q6H PRN PRN PRN Reason: WHEEZING Last Admin: 03/07/19 06:52 Dose: 0.63 mg Documented by: Lisinopril (Zestril) 2.5 mg PO QHS [facility] Last Admin: 03/07/19 00:30 Dose: 2.5 mg Documented by: Loratadine (Claritin) 10 mg PO DAILY [facility] Last Admin: 03/07/19 08:48 Dose: Not Given Documented by: Lorazepam (Ativan) 1 mg PO BID PRN PRN PRN Reason: ANXIETY Last Admin: 03/07/19 00:35 Dose: 1 mg Documented by: Metaxalone (Skelaxin) 800 mg PO TID PRN PRN PRN Reason: muscle spasms Montelukast Sodium (Singulair) 10 mg PO QHS [facility] Non-Formulary Medication (Atomoxetine Hcl [Strattera]) 10 mg PO DAILY [facility] Ondansetron HCl (Zofran) 4 mg IV Q6H PRN PRN PRN Reason: NAUSEA/VOMITING Oxycodone HCl (Oxyir) 5 mg PO Q6H PRN PRN PRN Reason: Pain Score 6-10/10 Last Admin: 03/07/19 06:29 Dose: 5 mg Documented by: Pantoprazole Sodium (Protonix) 40 mg PO DAILY PRN PRN PRN Reason: REFLUX Sodium Chloride () 10 - 40 ml IV UD PRN PRN Reason: SALINE FLUSH STROKE Vital Signs/Narrative: Vital Signs Temp Pulse Resp BP Pulse Ox 03/07/19 13:15 98.1 F 83 16 87/50 L 95 03/07/19 11:05 92 Medical Necessity - Tobacco Use Smoking Status: Never smoker Tobacco Use: Non-smoker Assessment/Plan All Active Problems Intractable abdominal pain (Acute) Dyspnea (Acute) Chest pain (Acute) 1. SOB and chest pressure - echo unremarkable, EF 65%, unable to estimate PASP unfortunately. Leukocytosis likely 2/2 recent steroid use. No wheezing, doubt asthma. Obtain stress test. Emphysematous changes on CTA. NO PE. Trop neg. Hx DMt2, HTN, HLD. 2. 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 3. T2DM, with obesity - metformin held. glucose stable, if fluctuates add SSI. 4. GERD - on ppi 5. HLD - not on statin. 6. HTN - borderline low. hold opiates. 7. Hx asthma - again, no acute exacerbation. PRN aerosols. DVT ppx: Early ambulation DC planning: stress in AM This patient was seen by Richard Cavanaugh PA-C under the supervision of Dr. Díaz <ArjunCarla - Last Filed: 03/07/19 15:32> Vitals/I&O's: Vital Signs Temp Pulse Resp BP Pulse Ox 98.6 F 79 16 86/54 L 99 03/07/19 15:15 03/07/19 15:15 03/07/19 15:15 03/07/19 15:15 03/07/19 15:15 Oxygen Flow Rate (L/min) [ 0 AMBULATING on Room Air] Oxygen Flow Rate (L/min) [At 0 REST on Room Air] Oxygen Delivery Method Room Air Weight: 207 lb 0.225 oz Body Mass Index (BMI) 30.5 Intake and Output for Last 24 Hours 03/05/19 03/06/19 03/07/19 23:59 23:59 23:59 Intake Total 432.5 / 432.5 360 / 360 Output Total 550 / 550 Balance 432.5 / 432.5 -190 / -190 Laboratory Results 03/06/19 20:44: WBC 14.2 H, RBC 5.33, Hgb 14.8, Hct 44.5, MCV 83.5, MCH 27.8, MCHC 33.3, RDW Std Deviation 37.4, RDW Coeff of Yair 12.4, Plt Count 322, MPV 9.1, Immature Gran % (Auto) 0.400, Neut % (Auto) 60.4, Lymph % (Auto) 31.9, Bonner % (Auto) 5.2, Eos % (Auto) 1.8, Baso % (Auto) 0.3, Absolute Neuts (auto) 8.6 H, Absolute Lymphs (auto) 4.52 H, Nucleated RBC % 0 03/06/19 20:44: Sodium 137, Potassium 3.5, Chloride 106, Carbon Dioxide 22.0, Anion Gap 9, BUN 16, Creatinine 0.76, Estim Creat Clear Calc 106.95, Est GFR (MDRD) Af Amer 110, Est GFR (MDRD) Non-Af 91, BUN/Creatinine Ratio 21.0 H, Glucose 112 H, Calcium 9.8, Troponin I < 0.015 03/06/19 20:44: D-Dimer Quant (PE/DVT) 0.36 03/07/19 00:13: POC Glucose 103 03/07/19 00:26: Troponin I < 0.015 03/07/19 03:28: Troponin I < 0.015 03/07/19 06:35: POC Glucose 112 H 03/07/19 11:17: POC Glucose 104 Current Medications Acetaminophen/Butalbital/Caffeine (Fioricet) 1 tablet PO Q4H PRN PRN PRN Reason: HEADACHE Atomoxetine HCl (Strattera) 18 mg PO DAILY [facility] Budesonide (Pulmicort Aerosol) 0.5 mg INHALATION BID.RT ARACELI Colesevelam HCl (Welchol) 625 - 1,875 mg PO BID PRN PRN PRN Reason: diarrhea Fluticasone Propionate (Flonase Nasal [place]) 2 spray NASAL DAILY [facility] Last Admin: 03/07/19 08:46 Dose: 2 spray Documented by: Fluvoxamine Maleate (Luvox) 37.5 mg PO QHS [facility] Glucagon () 1 mg IM .X1 PRN PRN Reason: Hypoglycemia Dextrose (Dextrose 10%-Water) 250 mls @ 999 mls/hr IV .Q16M PRN; Protocol PRN Reason: HYPOGLYCEMIA Sodium Chloride () 1,000 mls @ 100 mls/hr IV .Q10H [facility] Last Admin: 03/07/19 06:29 Dose: 100 mls/hr Documented by: Insulin Human Lispro (Humalog Kwikpen (Bkc)) 0 unit SC ACHS [facility]; Protocol Last Admin: 03/07/19 11:18 Dose: Not Given Documented by: Levalbuterol HCl (Xopenex) 0.63 mg IH Q6H PRN PRN PRN Reason: WHEEZING Last Admin: 03/07/19 06:52 Dose: 0.63 mg Documented by: Lisinopril (Zestril) 2.5 mg PO QHS [facility] Last Admin: 03/07/19 00:30 Dose: 2.5 mg Documented by: Loratadine (Claritin) 10 mg PO DAILY [facility] Last Admin: 03/07/19 08:48 Dose: Not Given Documented by: Lorazepam (Ativan) 1 mg PO BID PRN PRN PRN Reason: ANXIETY Last Admin: 03/07/19 00:35 Dose: 1 mg Documented by: Metaxalone (Skelaxin) 800 mg PO TID PRN PRN PRN Reason: muscle spasms Montelukast Sodium (Singulair) 10 mg PO QHS [facility] Ondansetron HCl (Zofran) 4 mg IV Q6H PRN PRN PRN Reason: NAUSEA/VOMITING Pantoprazole Sodium (Protonix) 40 mg PO DAILY PRN PRN PRN Reason: REFLUX Sodium Chloride () 10 - 40 ml IV UD PRN PRN Reason: SALINE FLUSH STROKE Vital Signs/Narrative: Vital Signs Temp Pulse Resp BP Pulse Ox 03/07/19 15:15 98.6 F 79 16 86/54 L 99 03/07/19 15:06 73 03/07/19 13:15 98.1 F 83 16 87/50 L 95 Assessment/Plan Patient seen by Richard Cavanaugh PA-C under my supervision Patient was admitted with a complaint of shortness of breath and chest pain. She has a history of severe asthma and morbid obesity s/p bariatric surgery 1 year ago. She was admitted with a complaint of worsening shortness of breath and says her pulse ox at home was ~ 86%. She also had associated chest heaviness and said it felt like an elephant was sitting on her chest and this was worsened with deep breathing. In the ED she was found to be tachycardic. D-dimer was 0.36. EKG showed no acute ST changes. CTA of the chest showed probable PE. She was started on Lovenox. Pulmonology was consulted. Patient seen and examined this morning. States chest pain has improved. She has no other complaints Review of systems is otherwise negative. O/e: Vital Signs Height 5 ft 9 in Weight: 207 lb 0.225 oz Weight in Pounds 207.0 lbs Pulse Ox [AMBULATING on Room 99 Air] Pulse Ox [At REST on Room Air] 95 Pulse Ox 99 Temperature 98.6 F Pulse Rate 79 Respiratory Rate 16 Blood Pressure 86/54 Blood Pressure Position Semi-Fowlers General: Alert, Oriented x3, Cooperative, lethargic HEENT: Atraumatic, PERRLA, EOMI, Normocephalic Neck: Supple, No JVD, Negative Carotid Bruits Lungs: Clear to auscultation, Normal air movement Cardiovascular: Regular rate, No murmurs Abdomen: Bowel Sounds Present, Soft, Non Tender Extremities: No edema, Capillary Refill Less than 3 Seconds Skin: No rashes, No breakdown Musculoskeletal: No Tenderness to Palpation of Joints or Extremities Neurological: Cranial nerves II-XII grossly intact Psych/Mental Status: Normal Affect, Appropriate, Alert and oriented to time, place, person, mood and affect CTA was re-read by Dr Dyson today, who said it was negative for PE. Will therefore Dc lovenox. 2D echo showed normal left ventricular size and function with EF of 65% and suggestion of impaired relaxation of left ventricle. No regional wall motion abnormalities noted. Will order stress test tomorrow. Continue breathing treatments for now. There was no evidence of pneumonia on the CT as well. For stress test tomorrow. Continue breathing treatments. Rest of management as per Richard Cavanaugh PA-C's notes which I have reviewed and endorsed. Code Visit Inpatient E&M: 68749 Subs Hosp L2
[2019-03-07 15:31] LABS: Bedside Glucose 92 mg/dL (70-110)
[2019-03-07] MEDS: Montelukast 10 MG Tablet PO (22:35)
[2019-03-08 00:35] LABS: Bedside Glucose 115 mg/dL (70-110)
[2019-03-08] MEDS: 0.9% Normal Saline 1,000 ML 100 ML IV (01:43)
[2019-03-08 03:00] VITALS: PULSE 64; RESP 18; O2SAT 98
[2019-03-08 04:30] VITALS: BP 91/64; PULSE 62; RESP 16; TEMP 36.9; O2SAT 96
[2019-03-08 06:50] LABS: Bedside Glucose 115 mg/dL (70-110)
--- NOTE | 2019-03-08 06:57 | EKG12_ITS ---
Test Reason : AM EKG Blood Pressure : / mmHG Vent. Rate : 072 BPM Atrial Rate : 072 BPM P-R Int : 160 ms QRS Dur : 066 ms QT Int : 406 ms P-R-T Axes : 057 062 065 degrees QTc Int : 444 ms Normal sinus rhythm Low voltage QRS Borderline ECG When compared with ECG of 06-MAR-2019 20:21, MANUAL COMPARISON REQUIRED, DATA IS UNCONFIRMED Confirmed by NIKKI STONE, MIKE ([id number]), publishing editor SARAH JOHNSTON ([id number]) on 03/11/2019 10:41:36 AM Referred By: VINICIO Confirmed By:MIKE JORDAN MD
[2019-03-08 07:00] VITALS: PULSE 76; RESP 18; O2SAT 98
[2019-03-08] MEDS: LEVALBUTEROL HCL 0.63 MG/3 ML VIAL.NEB IH (07:01)
[2019-03-08 07:30] VITALS: PULSE 68
--- NOTE | 2019-03-08 08:11 | PCM.PN.PUL ---
Patient Problems: Active and Suspected Problems Dyspnea (Acute) Chest pain (Acute) Subjective: Patient did okay overnight. Patient reports persistence of chest heaviness despite lack of hypoxia and cough. Patient admits she has not had much exertion since being admitted to the hospital. Patient is scheduled for a stress test this morning. Objective: Echocardiogram showed an EF of 65% with diastolic dysfunction. No significant pulmonary artery pressure reported. Valves were not visualized well. - Physical Exam Vitals/I&O's: Vital Signs Temp Pulse Resp BP Pulse Ox 36.9 C 68 18 91/64 98 03/08/19 04:30 03/08/19 07:30 03/08/19 07:00 03/08/19 04:30 03/08/19 07:00 Oxygen Flow Rate (L/min) [ 0 AMBULATING on Room Air] Oxygen Flow Rate (L/min) [At 0 REST on Room Air] Oxygen Delivery Method Room Air Weight: 93.9 kg Body Mass Index (BMI) 30.5 Intake and Output for Last 24 Hours 03/06/19 03/07/19 03/08/19 23:59 23:59 23:59 Intake Total 432.5 / 432.5 1863.33 / 2343.33 1480 / 1480 Output Total 550 / 552 2 / 2 Balance 432.5 / 432.5 1313.33 / 1791.33 1478 / 1478 General: Alert, Oriented x3, Cooperative, No apparent distress, Well developed, Well nourished, - - No conversational dyspnea. Obese. HEENT: Atraumatic, PERRLA, EOMI, Normocephalic, - - No scleral icterus or injection noted Oral: Moist Mucosa, No Gingival or Mucosal Lesions/ Ulcerations Neck: Supple, No JVD, No Nodes, Trachea Midline Lungs: Clear to auscultation, Normal air movement, No rhonchi, No wheeze, No rales, - - Symmetric expansion. No dullness to percussion. Cardiovascular: Regular rate, Regular Rhythm, Normal S1, Normal S2, No murmurs, No rub noted, No Gallop Abdomen: Bowel Sounds Present, Soft, Non Tender, Non-Distended, Obese Extremities: No clubbing, No cyanosis, No edema, Capillary Refill Less than 3 Seconds Skin: No rashes, No breakdown Musculoskeletal: No Tenderness to Palpation of Joints or Extremities Lymphatic: No Cervical, Supraclavicular, or Inguinal Adenopathy Neurological: Cranial nerves II-XII grossly intact, Neuro grossly intact, Motor Exam 5/5 strength throughout Psych/Mental Status: Alert and oriented to time, place, person, mood and affect Laboratory Results 03/07/19 11:17: POC Glucose 104 03/07/19 15:18: POC Glucose 92 03/07/19 22:32: POC Glucose 115 H 03/08/19 06:43: POC Glucose 115 H Current Medications Acetaminophen/Butalbital/Caffeine (Fioricet) 1 tablet PO Q4H PRN PRN PRN Reason: HEADACHE Atomoxetine HCl (Strattera) 18 mg PO DAILY [facility] Budesonide (Pulmicort Aerosol) 0.5 mg INHALATION BID.RT ARACELI Colesevelam HCl (Welchol) 625 - 1,875 mg PO BID PRN PRN PRN Reason: diarrhea Fluticasone Propionate (Flonase Nasal [place]) 2 spray NASAL DAILY [facility] Last Admin: 03/07/19 08:46 Dose: 2 spray Documented by: Fluvoxamine Maleate (Luvox) 37.5 mg PO QHS [facility] Last Admin: 03/07/19 22:34 Dose: 37.5 mg Documented by: Glucagon () 1 mg IM .X1 PRN PRN Reason: Hypoglycemia Dextrose (Dextrose 10%-Water) 250 mls @ 999 mls/hr IV .Q16M PRN; Protocol PRN Reason: HYPOGLYCEMIA Sodium Chloride () 1,000 mls @ 100 mls/hr IV .Q10H [facility] Last Admin: 03/08/19 01:43 Dose: 100 mls/hr Documented by: Insulin Human Lispro (Humalog Kwikpen (Bkc)) 0 unit SC ACHS [facility]; Protocol Last Admin: 03/08/19 06:43 Dose: Not Given Documented by: Levalbuterol HCl (Xopenex) 0.63 mg IH Q6H PRN PRN PRN Reason: WHEEZING Last Admin: 03/08/19 07:01 Dose: 0.63 mg Documented by: Lisinopril (Zestril) 2.5 mg PO QHS [facility] Last Admin: 03/07/19 22:36 Dose: 2.5 mg Documented by: Loratadine (Claritin) 10 mg PO DAILY [facility] Last Admin: 03/07/19 08:48 Dose: Not Given Documented by: Lorazepam (Ativan) 1 mg PO BID PRN PRN PRN Reason: ANXIETY Last Admin: 03/07/19 00:35 Dose: 1 mg Documented by: Metaxalone (Skelaxin) 800 mg PO TID PRN PRN PRN Reason: muscle spasms Montelukast Sodium (Singulair) 10 mg PO QHS [facility] Last Admin: 03/07/19 22:35 Dose: 10 mg Documented by: Ondansetron HCl (Zofran) 4 mg IV Q6H PRN PRN PRN Reason: NAUSEA/VOMITING Pantoprazole Sodium (Protonix) 40 mg PO DAILY PRN PRN PRN Reason: REFLUX Sodium Chloride () 10 - 40 ml IV UD PRN PRN Reason: SALINE FLUSH Clinical Impression(s) from Imaging Studies Chest CTA 03/06/19 20:04 IMPRESSION: Several regions of diminished enhancement of the pulmonary arteries with embolism versus artifact. Emphysematous change Electronically Signed: Ajit Burk MD at 21:58 EST , Service support , ADDENDUM: 03/07/19 0817 Medical Necessity - Tobacco Use Smoking Status: Never smoker Tobacco Use: Non-smoker Assessment/Plan All Active Problems Intractable abdominal pain (Acute) Dyspnea (Acute) Chest pain (Acute) RECOMMENDATIONS: 1. Check alpha-1 antitrypsin as an outpatient 2. Would not recommend systemic anticoagulation 3. Reinitiation of inhaled corticosteroid, no systemic steroids 4. Await results of stress test 5. Possible GI evaluation as an outpatient 6. Follow-up with primary poultry farmer meat at [facility] in 2 to 4 weeks after discharge IMPRESSIONS: 1. Hypoxia/shortness of breath/history of asthma Patient with no wheezing on exam on my evaluation. Patient is on significant medications for a history of asthma and is followed by the [facility]. Patient has been on steroids recently and appears to be back to baseline from that perspective. Some concern for possible atypical angina. Patient would have increased risk for possible coronary disease. The artery pressures were not able to be seen on echocardiogram. Patient does have some diastolic dysfunction, but is not having significant hypertension or tachycardia to suggest flash pulmonary edema. Oxygenation remains stable. Patient does have a stress test scheduled for this morning, so will await results. If negative, patient can likely be discharged from a pulmonary perspective with an outpatient evaluation for alpha-1 antitrypsin deficiency and possible hiatal hernia versus GERD. 2. Type 2 diabetes mellitus/hyperlipidemia/GERD/hypertension/obesity Complicates care, management, recovery and prognosis. Okay to continue with baseline medications from my perspective. Blood sugars appear to be controlled at this time. There should be no significant change with inhaled corticosteroids only. Code Visit Inpatient E&M: 94873 Subs Hosp L2
[2019-03-08 08:13] VITALS: BP 103/56; PULSE 75; RESP 16; TEMP 36.6; O2SAT 99
[2019-03-08 08:31] LABS: Absolute Neutrophil Count 4.6 X10^3/uL (2.0-7.7); Basophil# 0.02 X10^3/uL; Basophil% 0.2 % (0-1); Eosinophil# 0.22 X10^3/uL; Eosinophils% 2.6 % (0-5); Hematocrit 36.3 % (37-47); Hemoglobin 11.9 g/dL (12.0-15.0); Lymphocyte % 35.6 % (19-41); Mean Corp Hgb Conc 32.8 g/dL (32-36); Mean Corpuscular Hgb 27.9 pg (27.0-32.0); Mean Corpuscular Volume 85.2 fL (81-99); Mean Platelet Vol. 8.9 fl (6.2-12.0); Monocyte# 0.55 X10^3/uL; Monocyte% 6.5 % (0-10); NRBC Flagged by Analyzer 0 % (0-5); Neutrophil # 4.62 X10^3/uL (2.7-7.7); Neutrophil % 54.9 % (47-70); Platelet Count 257 K/mm3 (150-450); RBC Distribution Width CV 12.6 % (11.6-14.6); RBC Distribution Width SD 38.5 fl (35.1-43.9); Red Blood Count 4.26 M/mm3 (4.2-5.4); White Blood Count 8.4 K/mm3 (4.4-11.0)
[2019-03-08 09:12] LABS: Anion Gap 9 (5-15); BUN 12 mg/dL (7-18); Calcium,Total 8.4 mg/dL (8.5-10.1); Chloride 109 mmol/L (98-107); Creatinine, Serum 0.57 mg/dL (0.55-1.02); EST Glomerular Filtration Rate 127 mL/min (>60); Est Glom Filt Rate - Afr Amer 154 mL/min (>60); Estimated Creatinine Clearance 142.59 ml/min; Glucose 119 mg/dL (74-106); Potassium 3.8 mmol/L (3.5-5.1); Sodium Level 140 mmol/L (136-145)
[2019-03-08] MEDS: Fluticasone 0.05% 1 SPRAY NASAL.SRY 2 SPRAY NASAL (10:50)
[2019-03-08] MEDS: ATOMOXETINE HCL 18 MG CAPSULE PO (10:51)
[2019-03-08 11:13] VITALS: PULSE 84
[2019-03-08 11:36] LABS: Bedside Glucose 126 mg/dL (70-110)
--- NOTE | 2019-03-08 11:55 | STRESSREP_ITS ---
Stress Test Report Date: 03-08-2019 Procedure: Exercise tolerance test/imaging study Indications: Chest discomfort; shortness of breath/dyspnea; positional ort hostatic tachycardia syndrome; pneumonia Consent: Per the patient Procedure: The patient exercised on a Jim protocol for 4 minutes and 45 seconds completing Stage I and 1 minute and 45 seconds of Stage II achieving a peak heart rate of 169 bpm (91 % predicted maximal heart rate) with a peak blood pressure 150/60 mmHg and a peak MET capacity of 6 METs. The baseline ECG demonstrated normal sinus rhythm. The peak exercise ECG demonstrated no obvious ECG changes. There were no cardiac dysrhythmias pretest, during exercise, or recovery. The functional capacity was considered decreased. There was no complaint of chest discomfort during exercise or recovery. The examination was discontinued secondary to dyspnea. Impression: 1. Technically adequate (percent predicted maximal heart rate greater than 85%) exercise tolerance test 2. Peak exercise ECG 3. There were no cardiac dysrhythmias pretest, during exercise, or recovery 4. Nuclear images pending Myocardial perfusion imaging study: Technique: The patient was injected with 13.9 mCi of technetium 99m Cardiolite and subsequently rest SPECT Cardiolite nuclear imaging was obtained in the horizontal long, vertical long, and short axis views. The patient exercised on a Jim protocol for 4 minutes and 45 seconds completing Stage I and 1 minute and 45 seconds of Stage II achieving a peak heart rate of 169 bpm (91 % predicted maximal heart rate) with a peak blood pressure 150/60 mmHg and a peak MET capacity of 6 METs. The patient was injected with 42.0 mCi of technetium 99m Cardiolite and subsequently stress SPECT Cardiolite nuclear imaging was obtained in the horizontal long, vertical long, and short axis views. A gated Cardiolite study at peak stress was obtained. Interpretation: Rest and stress SPECT Cardiolite nuclear imaging status post realignment, normalization, and attenuation correction, demonstrates at rest the appearance of subtle diminished tracer uptake in portions of the distal anterior segments which appears to improve/normalize following stress. There are no myocardial perfusion deficits appreciated on the stress polar map images. There is end systolic thickening and brightening. The gated Cardiolite study demonstrates myocardial thickening and inward wall motion. The reported LVEF is 75 %. Impression: 1. Rest and stress SPECT Cardiolite nuclear imaging demonstrate myocardial perfusion changes at rest which appear to improve/normalize following stress appearing compatible with shifting soft tissue attenuation/artifact with no myocardial perfusion changes considered diagnostic for associated stress-induced myocardial ischemia. 2. The gated Cardiolite study reports an LVEF of 75 %. This note was generated with [email or web address] software. It may contain incorrect words, spelling, and punctuation that were not noted in checking the note before signing.
--- NOTE | 2019-03-08 12:05 | PCM.DC ---
- Discharge Diagnoses Current Active Problems: Current Active and Chronic Problems Dyspnea (Acute) Chest pain (Acute) You will use the following diet at home:: Calorie/Carbohydrate Controlled (specify 1200, 1400, etc) - 1800 danae / day, Cardiac Allergies/Adverse Reactions: Allergies atorvastatin [From Lipitor] Allergy (Verified 03/06/19 19:40) Rash ciprofloxacin [From Cipro] Allergy (Verified 03/06/19 19:40) Anaphylaxis ciprofloxacin HCl [From Cipro] Allergy (Verified 03/06/19:40) Anaphylaxis strawberry Allergy (Verified 03/06/19 19:40) Hives Sulfa (Sulfonamide Antibiotics) Allergy (Verified 03/06/19 19:40) Shortness of breath tomato Allergy (Verified 03/06/19:40) Food Allergy tramadol Allergy (Verified 03/06/19:40) Hives wheat Allergy (Verified 03/06/19:40) Food Allergy adhesive Adverse Reaction (Verified 03/06/19:40) Other albuterol Adverse Reaction (Verified 03/06/19:40) Other aspirin Adverse Reaction (Verified 03/06/19:40) Nausea/Vom/Diarrhea diphenhydramine [From Benadryl] Adverse Reaction (Verified 03/06/19 19:40) Shortness of breath duloxetine [From Cymbalta] Adverse Reaction (Verified 03/06/19:40) Other morphine Adverse Reaction (Verified 03/06/19:40) Shortness of breath nickel Adverse Reaction (Verified 03/06/19 19:40) Rash nifedipine Adverse Reaction (Verified 03/06/19:40) Chest tightness Opioids - Morphine Analogues Adverse Reaction (Verified 03/06/19:40) Inflammation of vein sumatriptan [From Imitrex] Adverse Reaction (Verified 03/06/19 19:40) Vomiting sumatriptan succinate [From Imitrex] Adverse Reaction (Verified 03/06/19 19:40) Vomiting topiramate [From Topamax] Adverse Reaction (Verified 03/06/19 19:40) Other venlafaxine [From Effexor] Adverse Reaction (Verified 03/06/19 19:40) Other Medications to take at Discharge Acetaminophen/Butalbital/Caffe [Fioricet] 1 tablet PO Q4H PRN PRN 04/12/14 Enalapril Maleate [Vasotec] 2.5 mg PO QHS 06/07/13 Levalbuterol HCl [Xopenex Aerosols] 0.63 mg INHALATION Q6H PRN PRN 06/07/13 Levalbuterol Tartrate [Xopenex Hfa Inhaler] 2 puff INHALATION Q4H PRN PRN 06/07/13 Triamcinolone Acetonide [Nasacort Aq Nasal [place]] 2 spray NASAL DAILY 06/07/13 metFORMIN (XR) [Glucophage Xr] 1,000 mg PO BID 06/07/13 Levonorgestrel [Mirena] 1 each IY X1 02/05/16 Pantoprazole Sodium [Protonix] 40 mg PO DAILY PRN 02/05/16 Montelukast [Singulair] 10 mg PO QHS 07/27/17 Ondansetron [Zofran Odt] 8 mg PO Q8H PRN PRN 04/26/18 Fluvoxamine Maleate 1.5 tab PO QHS 06/29/18 Multivit-Min/Iron/Folic Acid/K [Bariatric Mv-Iron 45 mg Cap] 2 cap PO BID 06/29/18 Atomoxetine HCl [Strattera] 18 mg PO DAILY 03/06/19 Budesonide Aerosol [Pulmicort Respules] 0.5 mg INHALATION BID 03/06/19 Cetirizine HCl/Pseudoephedrine [All Day Allergy-D Tablet] 1 ea PO DAILY 03/06/19 Colesevelam HCl 1 - 2 tab PO BID PRN 03/06/19 Lorazepam [Ativan] 1 mg PO BID PRN PRN 03/06/19 Primary Care Physician: Shirlene George MD [Primary Care Provider] - Please follow up with your Primary Care Physician in: 1-2 weeks Test Results: Test results from this visit will be discussed in further detail at your follow-up appointment, if applicable. Please Follow Up With: Roque Moseley MD When: 1-2 weeks Proposed Discharge Date: 03/08/19
--- NOTE | 2019-03-08 14:28 | DS.PCM_ITS ---
<Richard Cavanaugh - Last Filed: 03/08/19 14:28> Discharge Date and Diagnosis Date of Admission: 03/06/19 Date of Discharge: 03/08/19 - Primary Discharge Diagnosis SOB/chest pressure - due to underlying lung disease PE ruled out Hx IgG deficiency HLD, HTN Hx Asthma - no exacerbation GERD - Secondary Discharge Diagnosis Chronic Problems History of pilonidal cyst (Chronic) chronic vertigo/dizziness (Chronic) Chronic low back pain (Chronic) Morbid obesity (Chronic) Type 2 diabetes mellitus (Chronic) Hyperlipidemia (Chronic) Gastroesophageal reflux disease (Chronic) Benign hypertension (Chronic) Hospital Course and Treatment Imaging Results: IMAGIN03/08/19 05:55 Nuclear Stress Test - Treadmil [NM] AM (NON MEDS) CT/CTA Chest W/WO Contrast IMPRESSION: Several regions of diminished enhancement of the pulmonary arteries with embolism versus artifact. Emphysematous change Echo: Interpretation Summary The study was technically difficult. Contrast injection was performed. Left ventricular systolic function is normal. The estimated ejection fraction is 65 %. Mild focal mitral valve calcification of the anterior leaflet. Trivial mitral valve insufficiency. Trivial tricuspid valve insufficiency. Unable to estimate RV systolic pressure/pulmonary artery pressure due to technically difficult study. Transmitral doppler flow suggestive of impaired relaxation of left ventricle Stress test: Impression: 1. Rest and stress SPECT Cardiolite nuclear imaging demonstrate myocardial perfusion changes at rest which appear to improve/normalize following stress appearing compatible with shifting soft tissue attenuation/artifact with no myocardial perfusion changes considered diagnostic for associated stress-induced myocardial ischemia. 2. The gated Cardiolite study reports an LVEF of 75 %. Consults: Pulm - Jd Operations: None Procedures: 2-D Echocardiogram, Stress test Summary of Care Provided: Hospital Course: The patient is a 38 year old F with pmhx of asthma, IgG deficiency, Dmt2, HLD, HTN, GERD, obesity with prior bariatric surgery, who presented to the ER with increased SOB and chest pressure. She also complained of cough and congestion, and had been treated as an outpatient with augmentin and prednisone. She checked a pulse ox at her home and it was reportedly 86%, and she said the pressure was like an elephant on her chest. She came to the ER and a CTA initially was reported out as PE and she was given lovenox x1. She was admitted. A follow up overread revealed NO PE. Pulmonary medicine was consulted and was concerned there may be an underlying cardiac issue. An echo was obtained which was fairly unremarkable although RVSP/PASP could not be measured as it was a difficult study. She then underwent a stress test the following day. This too was unremarkable. The CTA did show emphysematous changes so it was felt that she may have progression of her underlying chronic lung disease. At this time she was discharged home in stable condition and advised to follow up with her own pulmonary medicine doctor, Dr. Moseley for further workup in 1-2 weeks. She will also need to follow up with her PCP in 1-2 weeks. This patient was seen by Richard Cavanaugh PA-C under the supervision of Dr. Díaz. [] - Physical Exam Vitals/I&O's: Vital Signs Temp Pulse Resp BP Pulse Ox 97.9 F 84 16 103/56 L 99 03/08/19 08:13 03/08/19 11:13 03/08/19 08:13 03/08/19 08:13 03/08/19 08:13 Oxygen Flow Rate (L/min) [ 0 AMBULATING on Room Air] Oxygen Flow Rate (L/min) [At 0 REST on Room Air] Oxygen Delivery Method Room Air Weight: 207 lb 0.225 oz Body Mass Index (BMI) 30.5 Intake and Output for Last 24 Hours 03/06/19 03/07/19 03/08/19 23:59 23:59 23:59 Intake Total 432.5 / 432.5 1863.33 / 2343.33 2343.33 / 2343.33 Output Total 550 / 552 2 / 2 Balance 432.5 / 432.5 1313.33 / 1791.33 2341.33 / 2341.33 General: Alert, Oriented x3, Cooperative HEENT: Atraumatic, PERRLA, EOMI, Normocephalic Neck: Supple, No JVD, Negative Carotid Bruits Lungs: Clear to auscultation, Normal air movement Cardiovascular: Regular rate, No murmurs Abdomen: Bowel Sounds Present, Soft, Non Tender Extremities: No edema, Capillary Refill Less than 3 Seconds Skin: No rashes, No breakdown Musculoskeletal: No Tenderness to Palpation of Joints or Extremities Neurological: Cranial nerves II-XII grossly intact Psych/Mental Status: Normal Affect, Appropriate, Alert and oriented to time, place, person, mood and affect Laboratory Results 03/07/19 15:18: POC Glucose 92 03/07/19 22:32: POC Glucose 115 H 03/08/19 06:43: POC Glucose 115 H 03/08/19 08:20: WBC 8.4, RBC 4.26, Hgb 11.9 L, Hct 36.3 L, MCV 85.2, MCH 27.9, MCHC 32.8, RDW Std Deviation 38.5, RDW Coeff of Yair 12.6, Plt Count 257, MPV 8.9, Immature Gran % (Auto) 0.200, Neut % (Auto) 54.9, Lymph % (Auto) 35.6, [place] % (Auto) 6.5, Eos % (Auto) 2.6, Baso % (Auto) 0.2, Absolute Neuts (auto) 4.6, Absolute Lymphs (auto) 3.00, Nucleated RBC % 0 03/08/19 08:20: Sodium 140, Potassium 3.8, Chloride 109 H, Carbon Dioxide 22.0, Anion Gap 9, BUN 12, Creatinine 0.57, Estim Creat Clear Calc 142.59, Est GFR (MDRD) Af Amer 154, Est GFR (MDRD) Non-Af 127, BUN/Creatinine Ratio 21.0 H, Glucose 119 H, Calcium 8.4 L 03/08/19 11:27: POC Glucose 126 H Discharge Diet: Low fat/ Low Cholesterol, 1800 Calorie Control Diet, 2000 mg Sodium Diet Discharge Activity: Return to Normal Activity Home Medications: Medications to take at Discharge Acetaminophen/Butalbital/Caffe [Fioricet] 1 tablet PO Q4H PRN PRN 06/07/13 Enalapril Maleate [Vasotec] 2.5 mg PO QHS 06/07/13 Levalbuterol HCl [Xopenex Aerosols] 0.63 mg INHALATION Q6H PRN PRN 06/07/13 Levalbuterol Tartrate [Xopenex Hfa Inhaler] 2 puff INHALATION Q4H PRN PRN 06/07/13 Triamcinolone Acetonide [Nasacort Aq Nasal [place]] 2 spray NASAL DAILY 06/07/13 metFORMIN (XR) [Glucophage Xr] 1,000 mg PO BID 06/07/13 Levonorgestrel [Mirena] 1 each IY X1 02/05/16 Pantoprazole Sodium [Protonix] 40 mg PO DAILY PRN 02/05/16 Montelukast [Singulair] 10 mg PO QHS 07/27/17 Ondansetron [Zofran Odt] 8 mg PO Q8H PRN PRN 04/26/18 Fluvoxamine Maleate 1.5 tab PO QHS 06/29/18 Multivit-Min/Iron/Folic Acid/K [Bariatric Mv-Iron 45 mg Cap] 2 cap PO BID 06/29/18 Atomoxetine HCl [Strattera] 18 mg PO DAILY 03/06/19 Budesonide Aerosol [Pulmicort Respules] 0.5 mg INHALATION BID 03/06/19 Cetirizine HCl/Pseudoephedrine [All Day Allergy-D Tablet] 1 ea PO DAILY 03/06/19 Colesevelam HCl 1 - 2 tab PO BID PRN 03/06/19 Lorazepam [Ativan] 1 mg PO BID PRN PRN 03/06/19 Primary Care Physician: Shirlene George MD [Primary Care Provider] - Please follow up with your Primary Care Physician in: 1-2 weeks Please Follow Up With: Roque Moseley MD When: 1-2 weeks Disposition: Home Minutes spent on discharge:: 35 Patient Condition:: Stable Medical Necessity - Tobacco Use Smoking Status: Never smoker Tobacco Use: Non-smoker Meaningful Use Info Meaningful Use Diagnoses (Choose all that apply): None applicable <Carla Díaz - Last Filed: 03/08/19 15:35> Discharge Date and Diagnosis - Secondary Discharge Diagnosis Chronic Problems History of pilonidal cyst (Chronic) chronic vertigo/dizziness (Chronic) Chronic low back pain (Chronic) Morbid obesity (Chronic) Type 2 diabetes mellitus (Chronic) Hyperlipidemia (Chronic) Gastroesophageal reflux disease (Chronic) Benign hypertension (Chronic) Hospital Course and Treatment Summary of Care Provided: Patient seen by Richard Cavanaugh PA-C under my supervision The patient is a 38 year old F with an extensive PMH as listed. She was admitted with a complaint of shortness of breath and chest pressure. She had associated cough and congestion. She was treated on outpatient basis with augmentin and prednisone. Patient states she checks her saturation at home and it was low she came into the ED. CTA done was initially read as PE and she was started on treatment for Lovenox x1. The next day, CTA was reviewed by the java development manager and it was determined that there was no PE. Pulmonology was consulted and per their recommendation, stress test was done which was negative. He had a 2D echo done as well which showed a left ventricular size and function with EF of 65% and impaired relaxation of left ventricle with no abnormal wall motion. She remained stable and was discharged home on 03/08/2019. She is to follow-up with her assistant production manager Dr. Moseley in 1 to 2 weeks. Patient seen and examined prior to discharge. She had no complaints. Review of signs otherwise negative. Labs and vitals reviewed. Home medication reviewed and reconciled. [] o/e: Vital Signs Height 5 ft 9 in Weight: 207 lb 0.225 oz Weight in Pounds 207.0 lbs Pulse Ox [AMBULATING on Room 99 Air] Pulse Ox [At REST on Room Air] 95 Pulse Ox 99 Temperature 97.9 F Pulse Rate 84 Respiratory Rate 16 Blood Pressure 103/56 Blood Pressure Position Semi-Fowlers General: Alert, Oriented x3, Cooperative HEENT: Atraumatic, PERRLA, EOMI, Normocephalic Neck: Supple, No JVD, Negative Carotid Bruits Lungs: Clear to auscultation, Normal air movement Cardiovascular: Regular rate, No murmurs Abdomen: Bowel Sounds Present, Soft, Non Tender Extremities: No edema, Capillary Refill Less than 3 Seconds Skin: No rashes, No breakdown Musculoskeletal: No Tenderness to Palpation of Joints or Extremities Neurological: Cranial nerves II-XII grossly intact Psych/Mental Status: Normal Affect, Appropriate, Alert and oriented to time, place, person, mood and affect Rest of management as per Richard Cavanaugh PA-C's notes which I reviewed and endorsed - Physical Exam Vitals/I&O's: Vital Signs Temp Pulse Resp BP Pulse Ox 97.9 F 84 16 103/56 L 99 03/08/19 08:13 03/08/19 11:13 03/08/19 08:13 03/08/19 08:13 03/08/19 08:13 Oxygen Flow Rate (L/min) [ 0 AMBULATING on Room Air] Oxygen Flow Rate (L/min) [At 0 REST on Room Air] Oxygen Delivery Method Room Air Weight: 207 lb 0.225 oz Body Mass Index (BMI) 30.5 Intake and Output for Last 24 Hours 03/06/19 03/07/19 03/08/19 23:59 23:59 23:59 Intake Total 432.5 / 432.5 1863.33 / 2343.33 2343.33 / 2343.33 Output Total 550 / 552 2 / 2 Balance 432.5 / 432.5 1313.33 / 1791.33 2341.33 / 2341.33 Laboratory Results 03/07/19 15:18: POC Glucose 92 03/07/19 22:32: POC Glucose 115 H 03/08/19 06:43: POC Glucose 115 H 03/08/19 08:20: WBC 8.4, RBC 4.26, Hgb 11.9 L, Hct 36.3 L, MCV 85.2, MCH 27.9, MCHC 32.8, RDW Std Deviation 38.5, RDW Coeff of Yair 12.6, Plt Count 257, MPV 8.9, Immature Gran % (Auto) 0.200, Neut % (Auto) 54.9, Lymph % (Auto) 35.6, [place] % (Auto) 6.5, Eos % (Auto) 2.6, Baso % (Auto) 0.2, Absolute Neuts (auto) 4.6, A bsolute Lymphs (auto) 3.00, Nucleated RBC % 0 03/08/19 08:20: Sodium 140, Potassium 3.8, Chloride 109 H, Carbon Dioxide 22.0, Anion Gap 9, BUN 12, Creatinine 0.57, Estim Creat Clear Calc 142.59, Est GFR (MDRD) Af Amer 154, Est GFR (MDRD) Non-Af 127, BUN/Creatinine Ratio 21.0 H, Glucose 119 H, Calcium 8.4 L 03/08/19 11:27: POC Glucose 126 H Code Visit Inpatient E&M: 23344 Disch Hosp
--- NOTE | 2019-03-10 16:10 | CASEMGMT ---
RN CM Discharge F/U Phone Call [place]: Lety Strata: 3 Discharge date: 03/08/19 Call date: 03/10/19 Call time: 1610 Admission dx: Acute hypoxia Pt states feels about the 'same' since discharge. Pt states that plans to f/u with BEE WORKER at PCP tomorrow. This RN CM also encouraged pt to make f/u appt with Dr. Pradip martinez, voices understanding. Pt states no questions regarding discharge instructions or medications at this time. Pt states some concerns with hospitalist and states 'I don't feel like she really listened to me' but states that the nurses/housekeepers were 'all great.' Pt voices no further questions/concerns/needs at this time and thanks this RN CM for the call at this time. SStaten RN JERICA
== END 2019-03-08 14:01 | disposition home or self-care (01) | DRG 141 ==
LOC: ED 22:15 → PCU 22:29
PROVIDERS: Admitting Provider Internal Medicine; Emergency Provider Emergency Medicine; Family Provider Internal Medicine; PCP Internal Medicine; Visit Provider Student in an Organized Health Care Education/Training Program
DX: J45.909 Unspecified asthma, uncomplicated (principal); D80.3 Selective deficiency of immunoglobulin G [IgG] subclasses; I10 Essential (primary) hypertension; E78.5 Hyperlipidemia, unspecified; K21.9 Gastro-esophageal reflux disease without esophagitis; E11.9 Type 2 diabetes mellitus without complications; E66.01 Morbid (severe) obesity due to excess calories; Z68.30 Body mass index [BMI] 30.0-30.9, adult; Z98.84 Bariatric surgery status; Z79.84 Long term (current) use of oral hypoglycemic drugs
CPT/HCPCS: 36415; 71275; 78452; 80048; 82962; 84484; 85025; 85379; 93005; 93017; 93306; 94640; 97802; 99285; A9500; J7030; J7040; Q9957; Q9967; A4216; C8929

== ENCOUNTER → 2019-03-11 16:00 | Outpatient (CLI) | payer MEDICAID, SELFPAY ==
[2019-03-06 23:44] VITALS: BMI 30.5
[2019-03-14 15:13] LABS: HPV APTIMA, High Risk Negative (Negative)
[2019-03-14 15:14] LABS: HPV Reflexed? YES, CHARGE PATIENT
== END ==
PROVIDERS: Visit Provider Obstetrics & Gynecology
DX: Z12.4 Encounter for screening for malignant neoplasm of cervix (principal)
CPT/HCPCS: 87624; 88175; G0145

== ENCOUNTER → 2019-04-25 09:16 | Outpatient (CLI) | payer MEDICAID, SELFPAY ==
--- NOTE | 2019-04-25 09:30 | RAD_ITS ---
EXAM DESCRIPTION: Small bowel study CLINICAL HISTORY: 38 years Female, diarrhea and bloating for approx 1 year COMPARISON: None. TECHNIQUE: A supine abdomen x-ray was performed initially. A cup of barium contrast within orally administered and sequential images were obtained. FINDINGS: The primary study shows multiple surgical clips in the upper mid abdomen due to previous gastric surgery for gastric sleeve operation for bariatric surgery. Barium passed rapidly from the stomach through the small intestine to the colon and was seen in the ascending portion of the colon at 15 minutes. Spot images were performed and show no fistulas extending between the small intestine and sigmoid colon. No other abdominal masses or lesions are seen. RAD/Small Bowel Series Only IMPRESSION: 1. Status post gastric sleeve operation for bariatric surgery. 2. Rapid transit of barium through the small intestine to the ascending colon in 15 minutes after the ingestion of contrast. Electronically Signed: Lencho Moreno, at 11:38 EST Tel , Service support ,
== END ==
PROVIDERS: PCP Internal Medicine; Referring Provider Nurse Practitioner Adult Health; Visit Provider Nurse Practitioner Adult Health
DX: R19.7 Diarrhea, unspecified (principal)
CPT/HCPCS: 74250

== ENCOUNTER → 2019-09-02 11:20 | Outpatient (CLI) | payer MEDICAID, SELFPAY | PROVIDERS: PCP Internal Medicine; Referring Provider Clinical Nurse Specialist; Visit Provider Clinical Nurse Specialist | DX: R06.02 Shortness of breath (principal); R50.9 Fever, unspecified; R05 Cough; J02.9 Acute pharyngitis, unspecified; Z87.09 Personal history of other diseases of the respiratory system | CPT/HCPCS: 87635; G2023; U0003 ==

== ENCOUNTER → 2019-10-10 12:25 | Outpatient (CLI) | payer MEDICAID, SELFPAY ==
[2019-10-10 12:49] LABS: Absolute Lymphocyte Count 3.43 X10^3/uL (0.83-4.51); Absolute Neutrophil Count 5.9 X10^3/uL (2.0-7.7); Basophil# 0.04 X10^3/uL; Basophil% 0.4 % (0-1); Eosinophil# 0.38 X10^3/uL; Eosinophils% 3.7 % (0-5); Lymphocyte # 3.43 X10^3/ul (4.0); Mean Corp Hgb Conc 33.3 g/dL (32-36); Mean Corpuscular Hgb 28.6 pg (27.0-32.0); Mean Corpuscular Volume 85.7 fL (81-99); Mean Platelet Vol. 9.2 fl (6.2-12.0); Monocyte# 0.59 X10^3/uL; Monocyte% 5.7 % (0-10); NRBC Flagged by Analyzer 0 % (0-5); Neutrophil # 5.92 X10^3/uL (2.7-7.7); Platelet Count 347 K/mm3 (150-450); RBC Distribution Width CV 12.3 % (11.6-14.6); RBC Distribution Width SD 38.2 fl (35.1-43.9); White Blood Count 10.4 K/mm3 (4.4-11.0)
[2019-10-10 13:02] LABS: Vitamin D,25 Hydroxy 24.2 ng/mL
[2019-10-10 13:06] LABS: ALB/GLOB Ratio 1.1 RATIO (0.9-2.4); AST(SGOT) 12 U/L (15-37); Alanine Aminotransfer ALT/SGPT 19 U/L (13-56); Alkaline Phosphatase 64 U/L (45-117); Anion Gap 9 (5-15); BUN 11 mg/dL (7-18); BUN/Creat Ratio 16.3 RATIO (10-20); Calcium,Total 9.1 mg/dL (8.5-10.1); Chloride 107 mmol/L (98-107); Creatinine, Serum 0.68 mg/dL (0.55-1.02); EST Glomerular Filtration Rate 104 mL/min (>60); Est Glom Filt Rate - Afr Amer 126 mL/min (>60); Globulin 3.8 g/dL (2.2-4.2); Glucose 114 mg/dL (74-106); Magnesium 1.6 mg/dL (1.6-2.6); Potassium 3.9 mmol/L (3.5-5.1); Protein, Total 7.8 g/dL (6.4-8.2); Sodium Level 142 mmol/L (136-145); Thyroid Stim Hormone (TSH) 1.31 uIU/mL (0.358-3.74)
== END ==
PROVIDERS: PCP Internal Medicine
DX: R53.83 Other fatigue (principal)
CPT/HCPCS: 80053; 82306; 83735; 84443; 85025

== ENCOUNTER 2020-03-04 19:58 | Emergency (ER) | payer MEDICAID, SELFPAY ==
[2020-03-04 19:59] VITALS: BP 121/74; PULSE 90; RESP 16; TEMP 36; O2SAT 100; BMI 33.7
--- NOTE | 2020-03-04 20:13 | EKG12_ITS ---
Test Reason : DYSRHYTHMIA Blood Pressure : / mmHG Vent. Rate : 098 BPM Atrial Rate : 098 BPM P-R Int : 166 ms QRS Dur : 064 ms QT Int : 334 ms P-R-T Axes : 078 066 073 degrees QTc Int : 426 ms Normal sinus rhythm Low voltage QRS Borderline ECG Confirmed by ERIKA STONE, IAN ([id number]), continuity editor GLORY SUAZO ([id number]) on 03/08/2020 9:52:28 AM Referred By: DAHIANA Confirmed By:IAN JAMES MD
--- NOTE | 2020-03-04 20:15 | ED.VIS.GEN ---
History of Present Illness Chief Complaint: Shortness of Breath Narrative: Patient presents with shortness of breath has been going on for a week she has seen her doctor as well as her yard general car supervisor, she continues to have shortness of breath she has no fever chills or cough. She has no fever or chills. She has no lower extremity edema or calf pain. She tells me she has intermittent palpitations. Review of systems: All systems negative except as indicated General: Denies: Fever Eyes: Denies: Visual changes - bilaterally ENT: Denies: Rhinorrhea, Sore throat Cardiovascular: Denies: Chest pain, there are palpitations as in HPI Respiratory: Shortness of breath as in HPI Gastrointestinal: Denies: Abdominal pain, Nausea, Vomiting Genitourinary: Denies: Dysuria Musculoskeletal: Denies: Myalgias Skin: Denies: Rash Neurological: Denies: Headache, Weakness Psych: Reports: negative Hematologic: Denies: Easy bruising, Easy bleeding Physical exam General: Well nourished, Well developed, No Acute Distress Head: Normocephalic, Atraumatic Eyes: Conjunctiva not pale ENT: Moist mucous membranes Neck: Supple, Nontender, No lymphadenopathy Cardiovascular: Regular rate, Regular rhythm Respiratory: No distress, CTA bilaterally, she has normal inspiration and expiration and she is speaking in full sentences without any respiratory distress Abdomen: Soft, Nontender, Nondistended Back: Nontender, Normal Inspection. Negative for: CVA tenderness Extremities: Nontender, No edema Skin: Normal color, No rash Neurological: Alert, Normal Strength, Normal Sensation Psychological: She is appearing Past Medical History - Allergies and Home Meds Allergies/Adverse Reactions: Allergies atorvastatin [From Lipitor] Allergy (Verified 03/04/20 20:01) Rash ciprofloxacin [From Cipro] Allergy (Verified 03/04/20 20:01) Anaphylaxis ciprofloxacin HCl [From Cipro] Allergy (Verified 03/04/20 20:01) Anaphylaxis strawberry Allergy (Verified 03/04/20 20:01) Hives Sulfa (Sulfonamide Antibiotics) Allergy (Verified 03/04/20 20:01) Shortness of breath tomato Allergy (Verified 03/04/20 20:01) Food Allergy tramadol Allergy (Verified 03/04/20 20:01) Hives wheat Allergy (Verified 03/04/20 20:01) Food Allergy adhesive Adverse Reaction (Verified 03/04/20 20:01) Other albuterol Adverse Reaction (Verified 03/04/20 20:01) Other aspirin Adverse Reaction (Verified 03/04/20 20:01) Nausea/Vom/Diarrhea diphenhydramine [From Benadryl] Adverse Reaction (Verified 03/04/20 20:) Shortness of breath duloxetine [From Cymbalta] Adverse Reaction (Verified 03/04/20 20:01) Other morphine Adverse Reaction (Verified 03/04/20 20:) Shortness of breath nickel Adverse Reaction (Verified 03/04/20 20:) Rash nifedipine Adverse Reaction (Verified 03/04/20 20:01) Chest tightness Opioids - Morphine Analogues Adverse Reaction (Verified 03/04/20 20:) Inflammation of vein sumatriptan [From Imitrex] Adverse Reaction (Verified 03/04/20 20:) Vomiting sumatriptan succinate [From Imitrex] Adverse Reaction (Verified 03/04/20 20:) Vomiting topiramate [From Topamax] Adverse Reaction (Verified 03/04/20 20:) Other venlafaxine [From Effexor] Adverse Reaction (Verified 03/04/20 20:01) Other Primary Care Physician: Shirlene George MD [Primary Care Provider] - Surgical History: - - Gastric sleeve surgery; nasal turbinates surgery with deviation of septum; cyst removed from eyelid. Balloon sinuplasty; pilonidal cyst removal from buttocks. Smoking Status: Never smoker - Family History Maternal Family History: Reports: Cancer - Colon, Diabetes Paternal Family History: Reports: - - Patient does not know about his paternal medical history. Physical Exam Vital Signs/Narrative: Vital Signs Temp Pulse Resp BP Pulse Ox 03/04/20 19:59 96.8 F L 90 16 121/74 H 100 Diagnostic/Tx/Re-eval - Rhythm Strip Rhythm Strip: Sinus Rhythm Rate: 98 Ectopy: None - EKG Initial EKG Interpretation: - - Sinus rhythm with a rate of 98. Normal ME and QTc intervals. No ischemic changes. Interpreted by emergency doctor - Medical Decision Making Patient has an unremarkable work-up. She does not desaturate in the ED she appears well. I will discharge her in stable condition, she can follow-up with her yard general car supervisor. ED Disposition - Plan for ED Patient: Diagnosis: Dyspnea Instructions: ED Dyspnea Referrals: Shirlene George MD [Primary Care Provider] - 3-5 Days
[2020-03-04] MEDS: MethylPREDNISolone 125 MG/2 ML Vial IV (20:44)
[2020-03-04 20:56] LABS: Absolute Lymphocyte Count 4.79 X10^3/uL (0.83-4.51); Absolute Neutrophil Count 9.6 X10^3/uL (2.0-7.7); Basophil# 0.06 X10^3/uL; Basophil% 0.4 % (0-1); Eosinophil# 0.21 X10^3/uL; Eosinophils% 1.3 % (0-5); Hematocrit 42.4 % (37-47); Hemoglobin 13.8 g/dL (12.0-15.0); Lymphocyte # 4.79 X10^3/ul (4.0); Lymphocyte % 30.6 % (19-41); Mean Corp Hgb Conc 32.5 g/dL (32-36); Mean Corpuscular Hgb 27.3 pg (27.0-32.0); Mean Corpuscular Volume 83.8 fL (81-99); Mean Platelet Vol. 9.4 fl (6.2-12.0); Monocyte# 0.94 X10^3/uL; NRBC Flagged by Analyzer 0 % (0-5); Neutrophil # 9.61 X10^3/uL (2.7-7.7); Neutrophil % 61.4 % (47-70); Platelet Count 339 K/mm3 (150-450); RBC Distribution Width CV 12.3 % (11.6-14.6); RBC Distribution Width SD 37.1 fl (35.1-43.9); Red Blood Count 5.06 M/mm3 (4.2-5.4); White Blood Count 15.7 K/mm3 (4.4-11.0)
[2020-03-04 22:02] LABS: Anion Gap 9 (5-15); BUN 15 mg/dL (7-18); BUN/Creat Ratio 15.5 RATIO (10-20); Calcium,Total 9.3 mg/dL (8.5-10.1); Chloride 110 mmol/L (98-107); Creatinine, Serum 0.97 mg/dL (0.55-1.02); EST Glomerular Filtration Rate 69 mL/min (>60); Est Glom Filt Rate - Afr Amer 83 mL/min (>60); Estimated Creatinine Clearance 82.99 ml/min; Glucose 263 mg/dL (74-106); Potassium 3.8 mmol/L (3.5-5.1); Sodium Level 141 mmol/L (136-145)
--- NOTE | 2020-03-04 22:12 | CT_ITS ---
HISTORY: SOB, COVID AT BEGINNING OF JANUARY. ADDITIONAL HISTORY: None provided. EXAMINATION/TECHNIQUE: CTA Chest WO/W Contrast Injection PULMONARY EMBOLISM PROTOCOL: 2D and 3D images to include MIP and/or volume rendered images IV CONTRAST: IV 100mL [id number] Number of images including paperwork: [id number] A radiation dose optimization technique was used for this scan. COMPARISON: 03/06/2019 FINDINGS: PULMONARY ARTERIES: No pulmonary arterial filling defects. AORTA AND GREAT VESSELS: Unremarkable. HEART/PERICARDIUM: Unremarkable. MEDIASTINUM: Unremarkable. ADENOPATHY: No pathologic appearing adenopathy. THYROID: Unremarkable visualized portions. LUNG PARENCHYMA: No consolidation or mass. Patchy bilateral areas of lucency again seen, possibly air trapping or emphysema. Minimal linear basilar opacities suggestive of scarring. PLEURAL SPACES: Unremarkable. UPPER ABDOMEN: Cholecystectomy. OSSEOUS AND SOFT TISSUE STRUCTURES: No acute skeletal findings. Degenerative changes. CT/CTA Chest W/WO Contrast IMPRESSION: No pulmonary embolus detected. Individualized dose optimization techniques were used for this CT. at 2238 Reported and signed by: Mirna Choe MD Electronically Signed: Mirna Choe MD at 22:38 EST Tel , Service support ,
[2020-03-04 22:20] VITALS: BP 115/64; PULSE 89; RESP 22; O2SAT 97
[2020-03-04 23:11] VITALS: BP 117/73; PULSE 84; RESP 22; O2SAT 94
== END 2020-03-04 23:11 | disposition home or self-care (01) ==
PROVIDERS: Emergency Provider Emergency Medicine; PCP Internal Medicine
DX: R06.02 Shortness of breath (principal)
CPT/HCPCS: 71275; 80048; 83880; 84484; 85025; 93005; 96374; 99285; Q9967; A4216

== ENCOUNTER 2020-05-21 13:02 | Outpatient (RCR) | payer MEDICAID, SELFPAY ==
[2020-04-08 14:33] VITALS: BMI 34.7
== END 2020-08-03 23:59 ==
LOC: IMMUN 13:02
PROVIDERS: PCP Internal Medicine; Visit Provider Family Medicine
DX: Z23 Encounter for immunization (principal)
CPT/HCPCS: 0001A; 0002A; 91300

== ENCOUNTER 2020-11-01 16:50 | Emergency (ER) | payer MEDICAID, SELFPAY ==
[2020-11-01 16:53] VITALS: BP 120/89; PULSE 91; RESP 16; TEMP 36.8; O2SAT 98; BMI 34.0
[2020-11-01 17:41] VITALS: BP 120/89; PULSE 91; RESP 16; TEMP 36.8; O2SAT 98
--- NOTE | 2020-11-01 18:33 | RAD_ITS ---
STUDY: X-RAY CHEST REASON FOR EXAM: Female, 40 years old. COVID. TECHNIQUE: Single AP portable view of the chest. COMPARISON: CTA of the chest, 03/04/2020 FINDINGS: The lungs are clear and expanded. There is no demonstrated pleural abnormality. Normal size heart. Normal mediastinum and bethanie. Normal visualized pulmonary arteries. Normal visualized aortic arch and descending thoracic aorta. Normal visualized thoracic spine. Normal visualized ribs, clavicles, and shoulders. There is no demonstrated abnormality of the visualized soft tissue structures of the upper abdomen. RAD/Chest 1 View (Portable) IMPRESSION: Normal x-ray examination of the chest. Electronically Signed: Khoa Zee DO at 20:05 EDT Tel [phone], Service support ,
--- NOTE | 2020-11-01 18:34 | EDS_ITS ---
HPI History of Present Illness Chief Complaint: General Illness Informant: patient Onset/Context/Timing Onset: Days Context: Gradual Onset Timing: Continuous Current Severity: Mild Maximum Severity: Mild Narrative Narrative: 40-year-old female type 2 diabetes also asthma diagnosed Covid positive on October 18. States that she has had nausea and vomiting recently vomited x2. Also diarrhea and feels dehydrated. Just feels generally weak. Decreased urine output and decreased oral intake. Patient was Covid vaccinated several months ago. Prior similar symptoms: No Recent Illness/Hospitalization: No PFSH PFSH Medical History Asthma HTN (hypertension) Hypothyroidism PCOS (polycystic ovarian syndrome) POTS (postural orthostatic tachycardia syndrome) Type 2 diabetes mellitus Home Medications mxpyduigvg-[id number]-piog 1 tab PO Q4H PRN PRN 06/07/13 [History Last Taken 08/13/18] enalapril maleate 2.5 mg PO QHS 06/07/13 [History Last Taken 03/05/19] levalbuterol HCl 0.63 mg INHALATION Q6H PRN PRN 06/07/13 [History Last Taken 08/13/18] levalbuterol tartrate 2 puff INHALATION Q4H PRN PRN 06/07/13 [History Last Taken 08/13/18] metformin 1,000 mg PO BID 06/07/13 [History Last Taken 03/06/19] triamcinolone acetonide 2 spray NASAL DAILY 06/07/13 [History Last Taken 08/13/18] levonorgestrel 1 ea IY X1 02/05/16 [History Last Taken 08/13/18] pantoprazole 40 mg PO DAILY PRN 02/05/16 [History Last Taken 08/13/18] ondansetron 8 mg PO Q8H PRN PRN 04/26/18 [History Last Taken 08/13/18] fluvoxamine 1.5 tab PO QHS 06/29/18 [History Last Taken 03/05/19] lorazepam 1 mg PO BID PRN PRN 03/06/19 [History Last Taken Unknown] diphenoxylate-atropine 2.5 mg-0.025 mg tablet 1 tab PO DAILY 04/08/20 [History Last Taken Unknown] lidocaine 1.8 % topical patch 1 patch TOPICAL DAILY 04/08/20 [History Last Taken Unknown] metaxalone 800 mg tablet 800 mg PO TID 04/08/20 [History Last Taken Unknown] nystatin 100,000 unit/gram topical powder 1 applic TOPICAL DAILY 04/08/20 [History Last Taken Unknown] olopatadine 0.1 % eye drops 1 drp OPHTHALMIC BID 04/08/20 [History Last Taken Unknown] sitagliptin 25 mg tablet 25 mg PO DAILY 04/08/20 [History Last Taken Unknown] ondansetron 4 mg PO Q8H 2 Days #6 tab 11/01/20 [Rx Last Taken Unknown] Allergy/AdvReac Type Severity Reaction Status Date / Time Corticosteroids Allergy Intermediate Other Verified 11/01/20 17:37 (Glucocorticoids) atorvastatin [From Lipitor] Allergy Rash Verified 11/01/20 17:37 ciprofloxacin [From Cipro] Allergy Anaphylaxis Verified 11/01/20 17:37 ciprofloxacin HCl Allergy Anaphylaxis Verified 11/01/20 17:37 [From Cipro] strawberry Allergy Hives Verified 11/01/20 17:37 Sulfa (Sulfonamide Allergy Shortness Verified 11/01/20 17:37 Antibiotics) of breath tomato Allergy Food Verified 11/01/20 17:37 Allergy tramadol Allergy Hives Verified 11/01/20 17:37 wheat Allergy Food Verified 11/01/20 17:37 Allergy adhesive AdvReac Other Verified 11/01/20 17:37 albuterol AdvReac Other Verified 11/01/20 17:37 aspirin AdvReac Nausea/Vom/ Verified 11/01/20 17:37 Diarrhea diphenhydramine AdvReac Shortness Verified 11/01/20 17:37 [From Benadryl] of breath duloxetine [From Cymbalta] AdvReac Other Verified 11/01/20 17:37 morphine AdvReac Shortness Verified 11/01/20 17:37 of breath nickel AdvReac Rash Verified 11/01/20 17:37 nifedipine AdvReac Chest Verified 11/01/20 17:37 tightness Opioids - Morphine Analogues AdvReac Inflammation Verified 11/01/20 17:37 of vein sumatriptan [From Imitrex] AdvReac Vomiting Verified 11/01/20 17:37 sumatriptan succinate AdvReac Vomiting Verified 11/01/20 17:37 [From Imitrex] topiramate [From Topamax] AdvReac Other Verified 11/01/20 17:37 venlafaxine [From Effexor] AdvReac Other Verified 11/01/20 17:37 nifedipine Allergy Intermediate Other Uncoded 04/08/20 14:51 Family History Grandmother Heart disease Diabetes Asthma Grandmother Diabetes PCOS (polycystic ovarian syndrome) Migraines Cataracts, bilateral Surgical History Bariatric surgery status Deviated septum History of cholecystectomy History of nasal surgery l breast scar tissue removal turbinate surgery' Social History household members: significant other number of children: 0 current occupational status: employed current occupation: [employer] history of recent travel: No sexually active: Yes Smoking Status: Never smoker alcohol intake: current alcohol intake frequency: a few times a month substance use type: marijuana diet: low carbohydrate and vegetarian what type of physical activity do you participate in: walking seatbelt use: always do you feel safe at home: Yes additional social history: boyfriend - Anshu Gaitan ROS ROS ED ROS Narrative Nausea, vomiting and diarrhea. Feels dehydrated. Cough. Review of Systems ROS Unobtainable: Denies due to encephalopathy Constitutional Constitutional ED: Denies chills or fever(s) Eyes Eyes: Denies change in vision ENT ENT ED: Denies ear pain or sore throat Cardiovascular Cardiovascular: Denies chest pain Respiratory/Chest Respiratory/Chest: Reports cough; Denies dyspnea Gastrointestinal Gastrointestinal: Reports diarrhea, nausea and vomiting; Denies abdominal pain or melena Genitourinary Genitourinary ED: Denies dysuria or hematuria Musculoskeletal Musculoskeletal: Denies myalgias Integumentary Denies rash Neurologic Neurologic: Denies headache(s) Psychiatric Psychiatric: Denies depression Endocrine Endocrinology: Denies polyuria Allergic/Immunologic Allergic/Immunologic ED: Denies urticaria EXAM Physical Exam Narrative Exam Narrative: 32-year-old female no acute distress vital signs stable afebrile. Pulse ox 98% on room air no signs of hypoxia. She does not look septic or toxic. H EENT exam unremarkable except mild dry mucous memories. Neck nontender no meningismus. Lungs clear to auscultation bilaterally. Dry cough. Heart regular rhythm no murmur rate about 90. Abdomen soft nontender nondistended normal bowel sounds no peritoneal signs. Moving all 4 extremities no edema back nontender. Neurologically awake and alert no focal motor deficits. Const Vital Signs: 11/01/20 16:53 11/01/20 17:40 11/01/20 17:41 Temperature 98.3 F 98.3 F Temperature Source Temporal Temporal Pulse Rate 91 91 Respiratory Rate 16 16 Respiratory Effort Non-Labored Blood Pressure 120/89 H 120/89 H Blood Pressure Mean 99 99 Pulse Ox 98 98 Oxygen Delivery Method Room Air Room Air Positive well nourished and well developed; Negative for obese, cachectic, contractures or unkempt General Appearance ED: well developed and NAD; Negative for unkempt, cachectic or contractures Nutritional Appearance: Negative for cachectic or obese HEENT Reports dry mucous membranes Negative for trauma or tenderness Mouth ED: Yes dry mucous membranes Mouth: dry mucous membranes Eyes PERRL and EOMs intact bilaterally Neck no lymphadenopathy, supple and no JVD General: Negative for tenderness Chest Wall inspection of chest normal and palpation of chest normal Resp normal respiratory effort and clear to auscultation bilaterally Auscultation: Negative for rales, rhonchi or diminished lung sounds Cardio regular rate, regular rhythm, S1 normal heart sound, S2 normal heart sound and no murmurs GI normal to inspection, nondistended, normoactive bowel sounds, non-tender, non- distended and no masses Inspection: Negative for abdominal distention Auscultation: normoactive bowel sounds Palpation: soft; Negative for tender, guarding or rebound tenderness present Back/Spine no CVA tenderness General Back: Negative for CVA tenderness Cervical Spine: Negative for cervical spine tenderness Thoracic Spine / Upper Back: Negative for thoracic spinal tenderness Extremity normal to inspection General Extremety ED: Negative for edema or tenderness General Extremity: Negative for edema Neuro oriented x3 and CN's II-XII intact bilaterally Sensorium / Orientation: alert; Negative for lethargic or stuporous Motor Exam: strength 5/5 throughout Psych mental status grossly normal Appearance: Negative for unkempt Attitude: No agitated Mood & Affect: Negative for depressed or tearful Skin no rashes or lesions noted and no wounds MDM MDM MDM Narrative Medical decision making narrative: Diabetic female diagnosed with Covid about 2 weeks ago. Complaining of nausea vomiting and diarrhea and feels dehydrated. Clinically looks dry. She will be hydrated with a liter of fluid. Zofran for nausea. Screening labs and chest x-ray being obtained. Repeat exam patient is doing well at 20 1:55 PM and will be discharged home. Lab Data Attestation: I reviewed the patient's lab results. Lab results narrative: CBC shows a white count of 12. Hemoglobin of 15.8. Electrolytes show a gap of 10 normal creatinine. Glucose of 104. Chest x-ray unremarkable. Labs: Laboratory Results - last 24 hr 11/01/20 11/01/20 18:40 18:40 WBC 12.0 H RBC 5.79 H Hgb 15.8 H Hct 49.0 H MCV 84.6 MCH 27.3 MCHC 32.2 RDW Std Deviation 39.5 RDW Coeff of Yair 12.8 Plt Count 414 MPV 8.8 Sodium 142 Potassium 4.2 Chloride 108 H Carbon Dioxide 24.0 Anion Gap 10 BUN 11 Creatinine 0.74 Estim Creat Clear Calc 107.72 Est GFR (MDRD) Af Amer 114 Est GFR (MDRD) Non-Af 94 BUN/Creatinine Ratio 14.9 Glucose 104 Calcium 9.6 Radiography Chest X-Ray - ED: 1 View, Read by ED Physician, Normal, Heart, Lungs, Mediastinum, Bony Structures and No Acute Disease Diagnostic Testing: Radiology Impression Chest X-Ray 11/01/20 18:33 IMPRESSION: Normal x-ray examination of the chest. Electronically Signed: Khoa Zee DO at 20:05 EDT Tel [phone], Service support , Portable single view chest x-ray interpreted by myself and radiologist showed no acute abnormality. Discharge Plan Triage Chief Complaint: General Illness ED Provider: Darin Lacy Dx/Rx/DC Orders Clinical Impression: Nausea & vomiting, COVID-19 Instructions: ED Vomiting (Adult) Prescriptions: New ondansetron 4 mg tablet,disintegrating 4 mg PO Q8H 2 Days Qty: 6 RF: 0 No Action lidocaine 1.8 % adhesive patch,medicated 1 patch TOPICAL DAILY RF: 0 diphenoxylate-atropine [Lomotil] 2.5-0.025 mg tablet 1 tab PO DAILY RF: 0 nystatin 100,000 unit/gram powder 1 applic TOPICAL DAILY RF: 0 olopatadine 0.1 % drops 1 drp OPHTHALMIC BID RF: 0 sitagliptin 25 mg tablet 25 mg PO DAILY RF: 0 metaxalone [Skelaxin] 800 mg tablet 800 mg PO TID RF: 0 levalbuterol HCl 0.63 MG/3 ML solution for nebulization 0.63 mg INHALATION Q6H PRN PRN (Reason: Wheezing) RF: 0 suzfefzyjj-nuyqkwqtjyjhx-gffy 1 TABLET tablet 1 tab PO Q4H PRN PRN (Reason: Headache) RF: 0 triamcinolone acetonide 1 SPRAY aerosol,spray 2 spray NASAL DAILY RF: 0 metformin 500 MG tablet 1,000 mg PO BID RF: 0 levalbuterol tartrate 15 GM HFA aerosol inhaler 2 puff INHALATION Q4H PRN PRN (Reason: Wheezing) RF: 0 enalapril maleate 2.5 MG tablet 2.5 mg PO QHS RF: 0 levonorgestrel 1 EACH intrauterine device 1 ea IY X1 RF: 0 pantoprazole 40 MG tablet 40 mg PO DAILY PRN (Reason: REFLUX) RF: 0 ondansetron 4 MG tablet 8 mg PO Q8H PRN PRN (Reason: Nausea) RF: 0 fluvoxamine 25 MG tablet 1.5 tab PO QHS RF: 0 lorazepam 1 MG tablet 1 mg PO BID PRN PRN (Reason: Anxiety) RF: 0 Primary Care Provider: Shirlene George Referrals: Shirlene George MD [Primary Care Provider] - 1 Week if not improving Activity Restrictions/Additional Instructions: Plenty of fluids and rest. Watch your blood sugars closely. Zofran as needed for nausea. Your labs and chest x-ray tonight were unremarkable. Follow-up with your primary care physician if not improving. Disposition Disposition: Home, Self Care
[2020-11-01] MEDS: 0.9% Normal Saline 1,000 ML 1000 ML IV (18:44)
[2020-11-01] MEDS: Ondansetron 4 MG/2 ML Vial IV (18:44)
[2020-11-01 18:49] LABS: Hemoglobin 15.8 g/dL (12.0-15.0); Mean Corp Hgb Conc 32.2 g/dL (32-36); Mean Corpuscular Hgb 27.3 pg (27.0-32.0); Mean Corpuscular Volume 84.6 fL (81-99); Mean Platelet Vol. 8.8 fl (6.2-12.0); Platelet Count 414 K/mm3 (150-450); RBC Distribution Width CV 12.8 % (11.6-14.6); RBC Distribution Width SD 39.5 fl (35.1-43.9); Red Blood Count 5.79 M/mm3 (4.2-5.4)
[2020-11-01 19:02] LABS: Anion Gap 10 (5-15); BUN 11 mg/dL (7-18); BUN/Creat Ratio 14.9 RATIO (10-20); Calcium,Total 9.6 mg/dL (8.5-10.1); Chloride 108 mmol/L (98-107); Creatinine, Serum 0.74 mg/dL (0.55-1.02); EST Glomerular Filtration Rate 94 mL/min (>60); Est Glom Filt Rate - Afr Amer 114 mL/min (>60); Estimated Creatinine Clearance 107.72 ml/min; Glucose 104 mg/dL (74-106); Potassium 4.2 mmol/L (3.5-5.1); Sodium Level 142 mmol/L (136-145)
[2020-11-01 21:00] VITALS: BP 128/21
[2020-11-01 22:20] VITALS: BP 121/83; PULSE 67; RESP 14; O2SAT 99
== END 2020-11-01 22:21 | disposition home or self-care (01) ==
PROVIDERS: Emergency Provider Emergency Medicine; PCP Internal Medicine
DX: U07.1 COVID-19 (principal); I10 Essential (primary) hypertension; E11.9 Type 2 diabetes mellitus without complications; E03.9 Hypothyroidism, unspecified; Z79.3 Long term (current) use of hormonal contraceptives; Z79.84 Long term (current) use of oral hypoglycemic drugs; Z79.899 Other long term (current) drug therapy
CPT/HCPCS: 71045; 80048; 85027; 96361; 96374; 99284; J7030; A4216; J2405

== ENCOUNTER → 2021-02-03 11:32 | Outpatient (CLI) | payer MEDICAID, SELFPAY ==
[2021-02-03 11:52] LABS: Absolute Lymphocyte Count 3.26 X10^3/uL (0.83-4.51); Absolute Neutrophil Count 5.5 X10^3/uL (2.0-7.7); Basophil# 0.06 X10^3/uL; Basophil% 0.6 % (0-1); Eosinophil# 0.41 X10^3/uL; Eosinophils% 4.2 % (0-5); Hematocrit 42.6 % (37-47); Hemoglobin 13.8 g/dL (12.0-15.0); Lymphocyte # 3.26 X10^3/ul (0.83-4.51); Lymphocyte % 33.1 % (19-41); Mean Corp Hgb Conc 32.4 g/dL (32-36); Mean Corpuscular Hgb 27.9 pg (27.0-32.0); Mean Corpuscular Volume 86.1 fL (81-99); Monocyte# 0.61 X10^3/uL; Monocyte% 6.2 % (0-10); NRBC Flagged by Analyzer 0 % (0-5); Neutrophil # 5.48 X10^3/uL (2.7-7.7); Neutrophil % 55.7 % (47-70); Platelet Count 352 K/mm3 (150-450); RBC Distribution Width CV 13.2 % (11.6-14.6); RBC Distribution Width SD 41.4 fl (35.1-43.9); Red Blood Count 4.95 M/mm3 (4.2-5.4); White Blood Count 9.8 K/mm3 (4.4-11.0)
--- NOTE | 2021-03-17 08:52 | US_ITS ---
STUDY: ULTRASOUND OF THE FEMALE PELVIS - COMPLETE REASON FOR EXAM: Female, 40 years old. Pelvic pain LMP: Unknown. TECHNIQUE: Transabdominal and Transvaginal TECHNICAL QUALITY: Adequate. COMPARISON: None. FINDINGS: The uterus is anteverted and is in a midline position. The uterus measures 6.9 cm x 4.1 cm x 2.5 cm. There is a Nabothian cyst of the cervix. The endometrium measures 1.9 mm in thickness, and is hyperechoic. There is no demonstrated endometrial mass. The myometrium is heterogeneous in echotexture in keeping with fibroid change of the abdominal discrete fibroid is seen. I.U.D. - The patient does have an I.U.D. The right ovary is visualized. The right ovary measures 4 cm x 2.9 cm x 2.1 cm. A dominant follicle is seen within the right ovary measuring 1.9 cm x 1.8 cm There is no visualized right adnexal mass or complex lesion. There is normal arterial and normal venous vascularity. The left ovary is non-visualized. There is no fluid in the cul-de-sac. The pre void volume of the bladder was 210 ml. US/Pelvic (Non ) IMPRESSION: IUD is seen within the fundal portion of the endometrium. Heterogeneous echotexture of the myometrium. Dominant follicle in the right ovary measuring 1.9 cm x 1.8 cm. Electronically Signed: Jared Salazar MD at 10:32 EST , Service support ,
--- NOTE | 2021-03-17 08:52 | US_ITS ---
STUDY: ULTRASOUND OF THE FEMALE PELVIS - COMPLETE REASON FOR EXAM: Female, 40 years old. Pelvic pain LMP: Unknown. TECHNIQUE: Transabdominal and Transvaginal TECHNICAL QUALITY: Adequate. COMPARISON: None. FINDINGS: The uterus is anteverted and is in a midline position. The uterus measures 6.9 cm x 4.1 cm x 2.5 cm. There is a Nabothian cyst of the cervix. The endometrium measures 1.9 mm in thickness, and is hyperechoic. There is no demonstrated endometrial mass. The myometrium is heterogeneous in echotexture in keeping with fibroid change of the abdominal discrete fibroid is seen. I.U.D. - The patient does have an I.U.D. The right ovary is visualized. The right ovary measures 4 cm x 2.9 cm x 2.1 cm. A dominant follicle is seen within the right ovary measuring 1.9 cm x 1.8 cm There is no visualized right adnexal mass or complex lesion. There is normal arterial and normal venous vascularity. The left ovary is non-visualized. There is no fluid in the cul-de-sac. The pre void volume of the bladder was 210 ml. US/Transvaginal Non- IMPRESSION: IUD is seen within the fundal portion of the endometrium. Heterogeneous echotexture of the myometrium. Dominant follicle in the right ovary measuring 1.9 cm x 1.8 cm. Electronically Signed: Jared Salazar MD at 10:32 EST , Service support ,
== END ==
PROVIDERS: PCP Internal Medicine; Referring Provider Obstetrics & Gynecology; Visit Provider Obstetrics & Gynecology
DX: N89.8 Other specified noninflammatory disorders of vagina (principal); R10.2 Pelvic and perineal pain; G89.29 Other chronic pain
CPT/HCPCS: 36415; 76830; 76856; 85025; 87070; 87205

== ENCOUNTER → 2021-02-24 09:26 | Outpatient (CLI) | payer MEDICAID, SELFPAY ==
--- NOTE | 2021-02-24 09:40 | BI_ITS ---
MAMMOGRAPHY - BILATERAL DIAGNOSTIC REASON FOR EXAM: Female, 40 years old. BREAST PAIN PERTINENT HISTORY: Non-contributory. TECHNIQUE: Digital examination. Mediolateral oblique (MLO) and craniocaudad (CC) views of both breasts were obtained. CAD: CAD was performed on this study. COMPARISON: None. FINDINGS: Breast Composition: There are scattered areas of fibroglandular density. There are no dominant masses or suspicious calcifications. No other significant abnormalities are identified. BI/DIAG MAMM W/CAD, BILAT IMPRESSION: Stable bilateral diagnostic mammogram. ASSESSMENT CATEGORY: BIRADS Category 1: Negative. A letter regarding these results will be sent to the patient by the facility within 30 days. FOLLOW UP RECOMMENDATION: Yearly follow up mammogram recommended. (A) Approximately 10% of breast cancers are not detected by mammography. A normal mammogram should not delay biopsy of a clinically suspicious abnormality. Electronically Signed: Puneet Funez MD at 10:20 EST Tel , Service support ,
== END ==
PROVIDERS: PCP Internal Medicine; Referring Provider Obstetrics & Gynecology; Visit Provider Obstetrics & Gynecology
DX: N64.4 Mastodynia (principal)
CPT/HCPCS: 77062; 77066; G0279

== ENCOUNTER → 2021-06-21 | Outpatient (CLI) | payer MEDICAID, SELFPAY ==
[2021-06-21 17:36] LABS: Absolute Lymphocyte Count 4.15 X10^3/uL (0.83-4.51); Absolute Neutrophil Count 5.6 X10^3/uL (2.0-7.7); Basophil# 0.04 X10^3/uL; Basophil% 0.4 % (0-1); Eosinophil# 0.42 X10^3/uL; Eosinophils% 3.9 % (0-5); Hematocrit 40.9 % (37-47); Hemoglobin 13.2 g/dL (12.0-15.0); Lymphocyte # 4.15 X10^3/ul (0.83-4.51); Lymphocyte % 38.1 % (19-41); Mean Corp Hgb Conc 32.3 g/dL (32-36); Mean Corpuscular Hgb 27.7 pg (27.0-32.0); Mean Corpuscular Volume 85.7 fL (81-99); Mean Platelet Vol. 9.2 fl (6.2-12.0); Monocyte# 0.65 X10^3/uL; NRBC Flagged by Analyzer 0 % (0-5); Neutrophil # 5.63 X10^3/uL (2.7-7.7); Neutrophil % 51.5 % (47-70); Platelet Count 371 K/mm3 (150-450); RBC Distribution Width CV 13.3 % (11.6-14.6); RBC Distribution Width SD 42.2 fl (35.1-43.9); Red Blood Count 4.77 M/mm3 (4.2-5.4); White Blood Count 10.9 K/mm3 (4.4-11.0)
[2021-06-21 17:43] LABS: ALB/GLOB Ratio 1.1 RATIO (0.9-2.4); AST(SGOT) 14 U/L (15-37); Alanine Aminotransfer ALT/SGPT 24 U/L (13-56); Albumin, Serum 3.9 g/dL (3.2-5.0); Alkaline Phosphatase 56 U/L (45-117); Anion Gap 7 (5-15); BUN 10 mg/dL (7-18); BUN/Creat Ratio 16.4 RATIO (10-20); Calcium,Total 8.7 mg/dL (8.5-10.1); Chloride 105 mmol/L (98-107); Creatinine, Serum 0.61 mg/dL (0.55-1.02); EST Glomerular Filtration Rate 116 mL/min (>60); Est Glom Filt Rate - Afr Amer 141 mL/min (>60); Globulin 3.7 g/dL (2.2-4.2); Glucose 97 mg/dL (74-106); Protein, Total 7.6 g/dL (6.4-8.2); Sodium Level 137 mmol/L (136-145)
[2021-06-21 20:32] LABS: Magnesium 1.7 mg/dL (1.6-2.6); Thyroid Stim Hormone (TSH) 1.94 uIU/mL (0.358-3.74)
== END | disposition home or self-care (01) ==
LOC: LAB 16:48
PROVIDERS: Anesthesiology; PCP Internal Medicine; Referring Provider Obstetrics & Gynecology; Visit Provider Obstetrics & Gynecology
DX: Z01.812 Encounter for preprocedural laboratory examination (principal)
CPT/HCPCS: 36415; 80053; 83036; 83735; 84443; 85025; 86850; 86900; 86901

== ENCOUNTER 2021-06-28 15:52 | Observation (INO) | payer MEDICAID, SELFPAY ==
[2021-06-28] VITALS (18 sets, daily range): BP systolic 107–128; BP diastolic 67–79; PULSE 57–90; RESP 7–18; TEMP 36.4–37.2; O2SAT 97–100; BMI 32.3
[2021-06-28] MEDS: Phenazopyridine 95 MG Tablet 190 MG PO (07:04)
[2021-06-28] MEDS: Scopolamine 1mg/72hr Patch 1 PATCH TD (07:05)
[2021-06-28] MEDS: Acetaminophen 500 MG Tablet 1000 MG PO ×3 (07:14→23:07)
[2021-06-28] MEDS: Gabapentin 600 MG Tablet PO (07:14)
[2021-06-28 07:26] LABS: Internal QC Validated? YES +Cl - CLEAR BKGD; Pregnancy, Serum, hCG Quali. NEGATIVE Negative
[2021-06-28] MEDS: Lactated Ringers 1,000 ML 40 ML IV ×4 (07:26→12:11)
[2021-06-28] MEDS: Enoxaparin 40 MG/0.4 ML Syringe SC (07:27)
[2021-06-28] MEDS: Magnesium 2 GM IV (07:27)
--- NOTE | 2021-06-28 07:30 | HYST_PTH ---
PATIENT: AYO QUIROGA LOC: [facility]3 U#:[id number] AGE/SX: 40/F ROOM: MS312 RE06/28/[address]: Dr. Linda Rosenberg MD : 1980 BED: 1 DIS: 06/29/2021 SPEC #: [id number] RECD: 06/28/21 12:40 STATUS: SOPHIE SWENSON #: [id number] PRABHJOT: 06/28/21 07:[address]: Linda Rosenberg DEPT: SURGICAL PATHOLOGY RECD BY: Melly Travis ENTERED: 06/28/21 12:51 SP TYPE: HYSTERECT OTHR DR: Dr. Shirlene George MD Tissues: Uterus, NOS Procedures: Surgery Specimen Level V HEADER OPERATION: ERAS, Hysterectomy, LAVH, Salpingectomy PRE-OP DIAGNOSIS: Chronic pelvic pain, Deep Dyspareunia TISSUE SUBMITTED: Uterus, Bilateral Fallopian Tubes MICROSCOPIC DIAGNOSIS Uterus, hysterectomy: Cervix ? nabothian cysts. Endometrium ? weakly proliferative to inactive endometrium with cystic change. Myometrium ? no pathologic change. Fallopian tubes ? benign paratubal cyst. AM:mario 06/29/2021 MICROSCOPIC DESCRIPTION Slides are reviewed. GROSS DESCRIPTION Received in fixative is one container labeled with the patient's name and designated uterus, bilateral fallopian tubes. The specimen consists of a hysterectomy specimen consisting of uterus with cervix and detached bilateral fallopian tubes. The uterus with cervix weighs 49 gm and measures 8 x 5 x 3 cm. The serosal surface is win, glistening. The ectocervical mucosa is unremarkable. The external os is slit-like in contour. The endocervical canal measures 3.5 cm in length and the endocervical mucosa is win, glistening and unremarkable. Sections of the cervix reveal a few cysts filled with mucoid material. The triangular endometrial cavity measures 4 cm in length and 2 cm in width. The endometrium is win, glistening without any mass lesion and measures 0.2 cm in thickness. Sections of the uterine wall do not reveal any mass lesion and it measures 1.5 cm in thickness. The fallopian tubes are not identified as right or left and measures 6.5 cm in length and 0.5 cm in diameter and 6 cm in length and 0.5 cm in diameter. Sections reveal unremarkable cut surfaces. One of the fallopian tubes also show a paratubal cyst measuring 0.5 cm in greatest dimension. Stage Settings Painter sections are submitted in eight cassettes as follows: 1 - anterior cervix, 2 - posterior cervix, 3 & 4 - anterior uterine wall, 5 & 6 - posterior uterine wall, 7 - one fallopian tube, 8 - second fallopian tube and paratubal cyst. / DELLA:mario 06/28/2021 TC:5 CPT: 37443
[2021-06-28] MEDS: Cefazolin 2 GM in 0.9% Normal Saline 100 ML IV ×2 (07:36→16:02)
--- NOTE | 2021-06-28 07:58 | PCM.HP.BLA ---
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 Chief Complaint: Pre op- needs new consent signed Casting Inspector Required: No Is patient in pain?: No Allergies Corticosteroids (Glucocorticoids) Allergy (Intermediate, Verified 06/21/21 09:18) Other atorvastatin [From Lipitor] Allergy (Verified 06/21/21 09:18) Rash ciprofloxacin [From Cipro] Allergy (Verified 06/21/21 09:18) Anaphylaxis ciprofloxacin HCl [From Cipro] Allergy (Verified 06/21/21 09:18) Anaphylaxis peanut Allergy (Verified 06/21/21 09:18) Other strawberry Allergy (Verified 06/21/21 09:18) Hives Sulfa (Sulfonamide Antibiotics) Allergy (Verified 06/21/21 09:18) Shortness of breath tomato Allergy (Verified 06/21/21 09:18) Food Allergy tramadol Allergy (Verified 06/21/21 09:18) Hives wheat Allergy (Verified 06/21/21 09:18) Food Allergy adhesive Adverse Reaction (Verified 06/21/21 09:18) Other albuterol Adverse Reaction (Verified 06/21/21 09:18) Other aspirin Adverse Reaction (Verified 06/21/21 09:18) Nausea/Vom/Diarrhea diphenhydramine [From Benadryl] Adverse Reaction (Verified 06/21/21 09:18) Shortness of breath duloxetine [From Cymbalta] Adverse Reaction (Verified 06/21/21 09:18) Other morphine Adverse Reaction (Verified 06/21/21 09:18) Shortness of breath nickel Adverse Reaction (Verified 06/21/21 09:18) Rash nifedipine Adverse Reaction (Verified 06/21/21 09:18) Chest tightness Opioids - Morphine Analogues Adverse Reaction (Verified 06/21/21 09:18) Inflammation of vein sumatriptan [From Imitrex] Adverse Reaction (Verified 06/21/21 09:18) Vomiting sumatriptan succinate [From Imitrex] Adverse Reaction (Verified 06/21/21 09:18) Vomiting topiramate [From Topamax] Adverse Reaction (Verified 06/21/21 09:18) Other venlafaxine [From Effexor] Adverse Reaction (Verified 06/21/21 09:18) Other nifedipine Allergy (Intermediate, Uncoded 06/21/21 09:18) Other Medications enalapril maleate 2.5 mg PO QHS 06/07/13 [History Confirmed 06/21/21] metformin 1,000 mg PO BID 06/07/13 [History Confirmed 06/21/21] levonorgestrel [Mirena] 1 ea IY X1 02/05/16 [History Confirmed 06/21/21] pantoprazole 40 mg PO DAILY PRN 02/05/16 [History Confirmed 06/21/21] fluvoxamine 1.5 tab PO QHS 06/29/18 [History Confirmed 06/21/21] lorazepam 1 mg PO BID PRN PRN 03/06/19 [History Confirmed 06/21/21] lidocaine 1.8 % topical patch 1 patch TOPICAL PRN PRN 04/08/20 [History Confirmed 06/21/21] metaxalone 800 mg tablet 800 mg PO TID 04/08/20 [History Confirmed 06/21/21] nystatin 100,000 unit/gram topical powder 1 applic TOPICAL DAILY 04/08/20 [History Confirmed 06/21/21] ondansetron 4 mg PO Q8H 2 Days #6 tab 11/01/20 [Rx Confirmed 06/21/21] semaglutide 0.25 mg SUBCUT QWEEK 12/16/20 [History Confirmed 06/21/21] fluconazole 150 mg tablet 150 mg PO .COMPLEX #7 tab 02/04/21 [Rx Confirmed 06/21/21] cholecalciferol (vitamin D3) [Vitamin D3] 125 mcg PO DAILY 05/10/21 [History Confirmed 06/21/21] fluticasone propionate 1 spray INTRANASAL PRN PRN 05/10/21 [History Confirmed 06/21/21] guaifenesin [Mucinex] 1,200 mg PO Q12H PRN 05/10/21 [History Confirmed 06/21/21] levalbuterol tartrate [Xopenex HFA] 1 puff INHALATION Q6H PRN 05/10/21 [History Confirmed 06/21/21] multivitamin 1 tab PO DAILY 05/10/21 [History Confirmed 06/21/21] ubrogepant [Ubrelvy] 100 mg PO PRN PRN 05/10/21 [History Confirmed 06/21/21] nystatin 100,000 unit/gram topical powder 1 applic TOPICAL BID #45 ea 05/26/21 [Rx Confirmed 06/21/21] nystatin 100,000 unit/gram topical powder 1 applic TOPICAL BID #45 ea 05/26/21 [Rx Confirmed 06/21/21] oxycodone-acetaminophen 5 mg-325 mg tablet 1 tab PO Q6H 7 Days #14 tab 06/21/21 [Rx Confirmed 06/21/21] : No PFSH Medical History Alcohol use Anemia Anxiety Arthritis Asthma Back pain Cardiology follow-up encounter Chronic cough Depression Diabetes Fatty liver Gastric reflux History of echocardiogram History of IBS History of pain when walking History of stress test HTN (hypertension) Hypothyroidism Injury of back Injury of head and neck Loss of consciousness Migraine headache Non-smoker PCOS (polycystic ovarian syndrome) POTS (postural orthostatic tachycardia syndrome) Shortness of breath on exertion Sleep apnea Thyroid disease Type 2 diabetes mellitus Wears contact lenses Wears glasses Yeast infection Surgical History Bariatric surgery status Deviated septum History of cholecystectomy History of nasal surgery Hx of eye surgery l breast scar tissue removal turbinate surgery' Family History Grandmother Heart disease Diabetes Asthma Grandmother Diabetes PCOS (polycystic ovarian syndrome) Migraines Cataracts, bilateral Social History household members: significant other number of children: 0 current occupational status: employed current occupation: [employer] history of recent travel: No sexually active: Yes Smoking Status: Never smoker alcohol intake: current alcohol intake frequency: a few times a month substance use type: marijuana diet: low carbohydrate and vegetarian what type of physical activity do you participate in: walking seatbelt use: always do you feel safe at home: Yes additional social history: boyfriend - Anshu Gaitan [facility] BS possible total hyst Chief Complaint: hyst preop Details: AYO ZELAYA is a 40 year old who presents for preop for hysterectomy for chronic pelvic pain and dysparuenia. Female Reproductive History Menopausal Symptoms: No hot flashes, No night sweats, No difficulty concentrating and Yes change in libido Pregancy History 0 Elective abortions Hx Para Spontaneous abortions Hx # Term Pregnancies Ectopic pregnancies Hx # Pregnancies Multiple births # of living children ROS Const Constitutional: Reports weight loss; Denies fatigue, night sweats or weight gain ENT ENT: Reports system reviewed and no additional complaints, except as documented Cardio Card: Denies chest pain Resp Resp: Denies cough or dyspnea GI GI: Reports as per HPI; Denies constipation, nausea or vomiting : Reports as per HPI; Denies hot flashes, nipple discharge, vaginal discharge, vaginal dryness, vaginal odor or vaginal pruritus Musc Musc: Denies arthralgias, back pain or muscle weakness Skin Skin/Breast: Denies alopecia, change in hair, dry skin, breast mass, breast pain, breast skin changes or nipple discharge Neuro Neuro: Reports system reviewed and no additional complaints, except as documented Psych Psych: Reports system reviewed and no additional complaints, except as documented and change in libido; Denies difficulty concentrating Endo Endo: Denies cold intolerance, excessive sweating, heat intolerance or polydipsia Jhonathan/Lymph Hematologic/Lymphatic: Denies easy bleeding, Denies easy bruising and Denies lymphadenopathy Exam Const General: cooperative, healthy appearing, comfortable, no acute distress and well developed Orientation: alert [facility] Head: normal to inspection and normocephalic Ears: hearing grossly normal bilaterally and external ears normal Nose: external nose normal and nares normal Face and sinus: normal facial exam Neck Neck: normal visual inspection and no lymphadenopathy Thyroid: thyroid normal Chest Chest palpation & inspection: normal inspection of the chest Resp Effort & Inspection: normal respiratory effort Auscultation: clear to auscultation bilaterally Cardio Rate: regular rate Rhythm: regular rhythm Heart Sounds: S1 normal and S2 normal GI Inspection: normal to inspection and non-distended Palpation: soft and no hepatosplenomegaly General: bladder normal to palpation External Female Exam: normal external appearance and normal appearance of the urethra Urethra: normal appearance of the urethra, normal palpation and no discharge Speculum Exam - Vagina: normal appearance of the vagina and normal vaginal discharge Speculum Exam - Cervix: normal appearance of the cervix and nontender Bimanual Exam- Vagina & Uterus: normal bimanual exam, uterine size normal, bladder normal to palpation, uterine shape normal, No tender, uterine mobility normal, consistency normal, normal palpation and non-tender Bimanual Exam- Adnexa, other: normal adnexae, adnexae mobile, no masses and normal Pelvic Support: normal Musc Other: gross motor intact no deficits, full bilateral strength Skin General: no rashes or lesions noted Neuro General: patient alert, patient awake, moves all extremities and no focal motor deficits Motor: muscle tone normal throughout Extrem General: normal to inspection and no pedal edema Psych Appearance: grossly normal Mental Status: mental status grossly normal Affect: normal affect Speech and Movement: speech and movement normal Coding Level of Care Code No Charge Diagnoses Chronic pelvic pain in female R10.2; G89.29 Deep dyspareunia N94.12 Assessment and Plan Assessment and Plan (1) Chronic pelvic pain in female: Status: Chronic Comment: failed IUD, adenomyosis seen on US, suspect other endometriosis. discussed diagnostic laparoscopy, elagolix, depo lupron. decision for surgical management with hysterectomy. Medications: New: oxycodone-acetaminophen 5-325 mg (Percocet) 1 TAB PO Q6H 7 days 14 tabs 0RF (2) Deep dyspareunia: Status: Acute Comment: discussed and plan LAVHBS possible TLH. discussed cessation of fertility. Plan - Dr. Linda Rosenberg MD: After discussing the patient's diagnosis and treatment plan options, patient wishes to proceed with surgical management. I have discussed with the patient the risks, benefits, and alternatives of the procedure which include but are not limited to risks of anesthesia, bleeding, infection, possible damage to bowel, bladder, or surrounding vasculature which could lead to additional surgery to evaluate any complications. Patient agrees to procedure and wishes to proceed. ACOG/uptodate references given for additional information regarding procedure. UPDATE- I have seen the patient and performed any clinically relevant updates to the history and physical exam. Linda Rosenberg MD
--- NOTE | 2021-06-28 07:59 | OP.PCM_ITS ---
Problems Associated Problem List Diagnoses (1) Deep dyspareunia: (2) Chronic pelvic pain in female: Report of Operation Pre-Operative Diagnosis: see problem list Post-Operative Diagnosis: same Surgery/Procedure Performed:: LAVHBS Type of Anesthesia: General Specimen's removed: uterus, tubes Drains: cox Fluids Replaced: crystalloid Description of Procedure: Patient received preoperative antibiotics and SCDs were on preoperatively. Patient was taken back to the operating room and placed in the dorsal lithotomy position. General anesthesia was induced and patient was prepped and draped in normal sterile fashion. iud removed and Uterine manipulator was placed inside the uterus and Cox catheter placed in the bladder. The umbilicus was grasped with towel clamps and an intraumbilical incision was made after injecting with quarter percent Marcaine and a Veress needle entered into the abdomen and unable to be confirmed to be in the right layer and therefore aborted and the visiport was used to enter into the abdomen and confirmed to be intra abdominal and the abdomen was insufflated. A small bl ood clot was noted underneath where the trocar was inserted and therefore the area was inspected and a small defect in the small bowel mesentery was noted and therefore general surgery was called to do a detailed expection to make sure no further injury was seen. Small amount of bleeding was noted with a small hematoma. Please see general surgery operative note for additional information but overall the general surgeon ran the bowel applied pressure to the area and confirmed that it was self-limited and there was still good integrity to the bowel with no bowel injury seen and good blood flow to the bowel. Floseal placed over the area for precaution and no significant sequela expected. Due to the patient centripetal obesity with excess skin from her status post gastric bypass surgery the surgery was technically difficult and this is what took an extended period of time due to the trochars popping in and out multiple times and an additional trocar being placed in the middle of the abdomen. Right and left lower quadrant trochars were placed under direct visualization to aid with the surgery. After the general surgeon left we proceeded with the hysterectomy. LAVH was performed bilateral fallopian tubes were elevated and the mesosalpinx transected and the round ligaments transected bilaterally followed by the utero- ovarian ligaments. The broad ligament was opened and vesicouterine flap created while skeletonizing the uterine arteries bilaterally. Uterine arteries were cauterized and transected with the LigaSure device. Excellent hemostasis was noted. Normal ovaries were seen bilaterally. Attention was then paid to the vaginal portion of the procedure. Very narrow vaginal access was noted and limited uterine descent. Circumferential incision was made but only anterior cul-de-sac was able to be entered and therefore the uterus was delivered anteriorly and clamps placed posteriorly along the cul-de-sac and the uterus cut and removed and sutures placed across the uterosacral ligaments bilaterally. Excellent hemostasis was noted. Vaginal cuff was closed with interrupted [id number] sutures of 0 Vicryl to obtain excellent hemostasis. Attention was then paid to the abdominal portion of the procedure again. Some raw areas were noted over the cuff and these were cauterized with the LigaSure device and then Floseal placed. Pressure was taken down and hemostasis confirmed. All port sites were confirmed to be hemostatic and they were removed without complication. Again the small hematoma over the small bowel mesentery was again inspected and noted be intact and self-limited without complication and no additional areas of suspicion were noted. All instruments removed from the patient and port sites were closed with 4-0 Monocryl and patient was awoken and taken recovery in stable condition. Grafts/Implants Used: none Admit VTE Documentation VTE Present on Admission: No VTE Mechan Device Prophylaxis: SCD's VTE Pharm Prophylaxis ordered?: Yes Procedures Urinary/Genital [id number]: [id number] LAVH+BS/O <250gr Uterus
[2021-06-28 08:05] LABS: Bedside Glucose 114 mg/dL (74-106)
--- NOTE | 2021-06-28 10:17 | OP.PCM_ITS ---
Report of Operation Date of Procedure: 06/28/21 Pre-Operative Diagnosis: Veress needle injury to small bowel mesentery Post-Operative Diagnosis: Same Surgery/Procedure Performed:: Diagnostic laparoscopy Description of Surgical Findings:: Expanding hematoma of the small bowel mesentery approximately 50 cm proximal to the terminal ileum, but bowel fed by this mesentery was grossly normal. Hematoma no longer expanding after application of pressure. Surgeon: Adria Benedict oracle software engineer: Linda Rosenberg oracle software engineer: Genia Juan Type of Anesthesia: General/Supplemental Anesthesiologist: Angel Rai Drains: None Description of Procedure: This represents an intraoperative consultation from Dr. Rosenberg. I was asked to assist with the operation for a possible Veress needle injury. I was told that due to the patient's habitus there is some difficulty establishing pneumoperitoneum, but the optical entry appeared to be uneventful. There appeared to be some slight oozing from the small bowel mesentery on the monitor, but anesthesia assured us that patient was stable from a vitals perspective. After scrubbing in, we realized that the port configuration was not quite optimal for complete exploration of the patient's abdomen so I placed a additional 5 mm port in the infraumbilical midline under direct laparoscopic visualization. Additionally, the patient's supraumbilical 5 mm umbilical port was upsized to a 12 mm port and a Ray-Prasanth was placed within the abdomen. Working from this port and the existing ports, is able to run the patient's bowel from the site of injury proximally to the ligament of Treitz. There appeared to be no other signs of injury to the small bowel or its mesentery. In running the bowel the opposite direction, distally, I found a similar result and estimate that we were approximately 50 cm from the ileocecal junction with the injury. The injury itself, appeared to be a partial-thickness injury through the small bowel mesentery. Initially, there appeared to be some expansion of the mesenteric hematoma, but the bowel supplied by this mesentery appeared grossly normal/well-perfused. I applied some direct pressure to the site of injury over a Ray-Prasanth gauze and the bleeding appeared to stop. Satisfied with this result, but seeking to ensure hemostasis, we placed some Surgi-Jorge hemostatic agent over the penetration site in the mesentery. I then scrubbed out of the case and Dr. Rosenberg finished her portion of the procedure?please see her documentation for complete procedure details.
[2021-06-28] MEDS: Vasopressin 20 UNITS/ML Vial (10:30)
[2021-06-28] MEDS: Ondansetron 4 MG/2 ML Vial IV (11:31)
[2021-06-28 12:25] LABS: Bedside Glucose 222 mg/dL (74-106)
[2021-06-28] MEDS: Insulin Lispro 100 UNIT/ML INSULN.PEN SC (12:29)
[2021-06-28 13:39] LABS: Absolute Lymphocyte Count 1.56 X10^3/uL (0.83-4.51); Absolute Neutrophil Count 18.8 X10^3/uL (2.0-7.7); Basophil# 0.03 X10^3/uL; Basophil% 0.1 % (0-1); Eosinophil# 0.02 X10^3/uL; Eosinophils% 0.1 % (0-5); Hematocrit 38.2 % (37-47); Hemoglobin 12.4 g/dL (12.0-15.0); Lymphocyte # 1.56 X10^3/ul (0.83-4.51); Lymphocyte % 7.3 % (19-41); Mean Corp Hgb Conc 32.5 g/dL (32-36); Mean Corpuscular Hgb 27.7 pg (27.0-32.0); Mean Corpuscular Volume 85.5 fL (81-99); Mean Platelet Vol. 9.3 fl (6.2-12.0); Monocyte# 0.94 X10^3/uL; Monocyte% 4.4 % (0-10); NRBC Flagged by Analyzer 0 % (0-5); Neutrophil # 18.76 X10^3/uL (2.7-7.7); Neutrophil % 87.7 % (47-70); Platelet Count 319 K/mm3 (150-450); RBC Distribution Width CV 13.1 % (11.6-14.6); RBC Distribution Width SD 40.9 fl (35.1-43.9); Red Blood Count 4.47 M/mm3 (4.2-5.4); White Blood Count 21.4 K/mm3 (4.4-11.0)
[2021-06-28] MEDS: Lactated Ringers 1,000 ML 70 ML IV (16:50)
[2021-06-28] MEDS: metFORMIN (XR) 500 MG Tablet 1000 MG PO (17:08)
[2021-06-28] MEDS: Neomycin/Bacitracin/Polymyxin Opth. Ointment 1 APPLIC EACH EYE ×2 (17:09→22:00)
[2021-06-28] MEDS: HYDROmorphone 1 MG/ML Syringe IV (17:20)
[2021-06-28 17:21] LABS: Bedside Glucose 139 mg/dL (74-106)
[2021-06-28] MEDS: Ondansetron ODT 4 MG Tablet PO (17:25)
[2021-06-28] MEDS: Pantoprazole Sodium 40 MG Tablet PO (17:25)
[2021-06-28] MEDS: Docusate Sodium 100 MG Capsule PO (21:44)
[2021-06-28 22:00] LABS: Bedside Glucose 118 mg/dL (74-106)
[2021-06-29] VITALS (8 sets, daily range): BP systolic 105–113; BP diastolic 63–72; PULSE 64–75; RESP 15–18; TEMP 36.8–37.2; O2SAT 98
[2021-06-29] MEDS: Lactated Ringers 1,000 ML 70 ML IV (00:35)
--- NOTE | 2021-06-29 03:52 | DCINST_ITS ---
Discharge Instructions Diet Discharge Diet: No restrictions Activity May resume sexual activity in: 6 weeks Weight Bearing Status: Full weight bearing Dressing / Incision Call your doctor if your incision/area has: Continuous Slow Oozing, Sudden Increased Bleeding, Increased Pain/ Swelling, Increased Redness and Foul Smelling Discharge Call your doctor if you observe: Fever of 101 or Higher, Using more than 1 pad per hour, Shortness of breath, Chest pain and Uncontrolled pain Suture Line Care: Avoid Pulling/Pushing and Avoid Pinching/Bending Remove Dressing in: 1 week (if present) Cleanse incision/area with: Soap & Water and Keep Dressing Clean & Dry Follow Up Care Please Follow Up With: Linda Rosenberg MD When: Call to make an appointment with your doctor for a postop visit in 2 and 6 weeks. Test Results: Test results from this visit will be discussed in further detail at your follow-up appointment, if applicable. Discharge Plan Admission Admit Date/Time: 06/28/21 15:52 Attending Provider: Linda Rosenberg Primary Care Provider: Shirlene George Discharge Orders/Prescriptions Prescriptions: New oxycodone-acetaminophen [Percocet] 5-325 mg tablet 1 tab PO Q6H PRN (Reason: pain) 7 Days Qty: 20 RF: 0 No Action lidocaine 1.8 % adhesive patch,medicated 1 patch TOPICAL PRN PRN (Reason: Pain) RF: 0 nystatin 100,000 unit/gram powder 1 applic TOPICAL DAILY RF: 0 metaxalone [Skelaxin] 800 mg tablet 800 mg PO TID RF: 0 Ozempic 0.25 mg or 0.5 mg(2 mg/1.5 mL) pen injector 0.25 mg subcut QWEEK RF: 0 metformin 500 MG tablet 1,000 mg PO BID RF: 0 enalapril maleate 2.5 MG tablet 2.5 mg PO QHS RF: 0 Mirena 1 EACH intrauterine device 1 ea IY X1 RF: 0 pantoprazole 40 MG tablet 40 mg PO DAILY PRN (Reason: REFLUX) RF: 0 fluvoxamine 25 MG tablet 1.5 tab PO QHS RF: 0 lorazepam 1 MG tablet 1 mg PO BID PRN PRN (Reason: Anxiety) RF: 0 ondansetron 4 mg tablet,disintegrating 4 mg PO Q8H 2 Days Qty: 6 RF: 0 multivitamin Tablet 1 tab PO DAILY RF: 0 cholecalciferol (vitamin D3) [Vitamin D3] 125 mcg (5,000 unit) Tablet 125 mcg PO DAILY RF: 0 Ubrelvy 100 mg Tablet 100 mg PO PRN PRN (Reason: MIGRAINES) RF: 0 fluticasone propionate 50 mcg/actuation spray,suspension 1 spray INTRANASAL PRN PRN (Reason: ALLERGIES) RF: 0 levalbuterol tartrate [Xopenex HFA] 45 mcg/actuation Hfa Aerosol Inhaler 1 puff INHALATION Q6H PRN (Reason: ASTHMA) RF: 0 guaifenesin [Mucinex] 600 mg Tablet Extended Release 12hr 1,200 mg PO Q12H PRN (Reason: ALLERGIES) RF: 0 fluconazole [Diflucan] 150 mg tablet 150 mg PO .COMPLEX Qty: 7 RF: 5 nystatin [Nystop] 100,000 unit/gram powder 1 applic topical BID Qty: 45 RF: 7 nystatin [Nystop] 100,000 unit/gram powder 1 applic topical BID Qty: 45 RF: 7 Other Ambulatory Orders: ,Urine (Routine) Timeframe: [id number] Facility: [facility] - Location: Laboratory Ordered By: Dr. Linda Rosenberg Referrals / Follow Up: Shirlene George MD [Primary Care Provider] - Disposition Disposition (needs filled in before D/C Order can be placed): Home, Self Care
--- NOTE | 2021-06-29 03:55 | PCM.PN.OB ---
Subjective Subjective Patient doing well without complaints. Tolerating clears, has been very groggy. hasn't ambulated much. Denies chest pain, shortness of breath, calf pain/swelling, fevers, chills, lightheadedness. Objective Data Objective Data Vital Signs: Vital Signs Temp Pulse Resp BP Pulse Ox 98.9 F 75 15 106/72 98 06/29/21 02:56 06/29/21 02:56 06/29/21 02:56 06/29/21 02:56 06/29/21 02:56 Oxygen Flow Rate (L/min) 2 Oxygen Delivery Method Nasal Cannula Weight: 219 lb 2.232 oz Body Mass Index (BMI) 32.3 Intake & Output: Intake and Output for Last 24 Hours 06/27/21 06/28/21 06/29/21 23:59 23:59 23:59 Intake Total 3509.33 / 3809.33 842.5 / 842.5 Output Total 1025 / 1375 350 / 350 Balance 2484.33 / 2434.33 492.5 / 492.5 Lab / Micro Data Result Diagrams: 06/29/21 05:03 Labs: Laboratory Results - last 24 hr 06/28/21 06:46: Serum , Qual NEGATIVE 06/28/21 06:54: POC Glucose 114 H 06/28/21 12:21: POC Glucose 222 H 06/28/21 13:30: WBC 21.4 H, RBC 4.47, Hgb 12.4, Hct 38.2, MCV 85.5, MCH 27.7, MCHC 32.5, RDW Std Deviation 40.9, RDW Coeff of Yair 13.1, Plt Count 319, MPV 9.3, Immature Gran % (Auto) 0.400, Neut % (Auto) 87.7 H, Lymph % (Auto) 7.3 L, [place] % (Auto) 4.4, Eos % (Auto) 0.1, Baso % (Auto) 0.1, Absolute Neuts (auto) 18.8 H, Absolute Lymphs (auto) 1.56, Nucleated RBC % 0 06/28/21 17:07: POC Glucose 139 H 06/28/21 21:53: POC Glucose 118 H ROS Constitutional Constitutional: Reports systems reviewed and no addt'l complaints, except as documented Cardiovascular Cardiovascular: Reports systems reviewed and no addt'l complaints, except as documented Respiratory/Chest Respiratory/Chest: Reports systems reviewed and no addt'l complaints, except as documented Gastrointestinal Gastrointestinal: Reports systems reviewed and no addt'l complaints, except as documented Physical Exam Const alert, oriented x3 and no apparent distress HEENT Head and Scalp: atraumatic Resp normal respiratory effort GI soft to palpation and non-tender Assessment & Plan (1) S/P laparoscopic assisted vaginal hysterectomy (LAVH): COMMENT: for CPP/dyspareunia PLAN: patient is s/p lavh bs POD 1 1. routine ERAS protocol postop care- increase ambulation, encourage oral intake and oral control of pain. scds for dvt prophylaxis, repeat cbc at 9 am. once meets dc criteria will release to home.
[2021-06-29] MEDS: Acetaminophen 500 MG Tablet 1000 MG PO ×3 (05:43→19:02)
[2021-06-29 05:44] LABS: Hematocrit 32.4 % (37-47); Hemoglobin 10.5 g/dL (12.0-15.0); Mean Corp Hgb Conc 32.4 g/dL (32-36); Mean Corpuscular Hgb 27.9 pg (27.0-32.0); Mean Corpuscular Volume 86.2 fL (81-99); Mean Platelet Vol. 9.3 fl (6.2-12.0); Platelet Count 283 K/mm3 (150-450); RBC Distribution Width CV 13.1 % (11.6-14.6); RBC Distribution Width SD 41.1 fl (35.1-43.9); Red Blood Count 3.76 M/mm3 (4.2-5.4); White Blood Count 9.7 K/mm3 (4.4-11.0)
[2021-06-29 06:45] LABS: Bedside Glucose 130 mg/dL (74-106)
[2021-06-29] MEDS: metFORMIN (XR) 500 MG Tablet 1000 MG PO (08:21)
[2021-06-29] MEDS: Multivitamins,Therapeutic Tablet 1 TABLET PO (08:22)
[2021-06-29] MEDS: Cholecalciferol (Vit D3) 125 MCG CAPSULE (5,000 UNITS) PO (08:22)
[2021-06-29 08:50] LABS: Absolute Neutrophil Count 7.1 X10^3/uL (2.0-7.7); Basophil# 0.05 X10^3/uL; Basophil% 0.5 % (0-1); Eosinophil# 0.14 X10^3/uL; Eosinophils% 1.3 % (0-5); Hematocrit 35.5 % (37-47); Hemoglobin 11.6 g/dL (12.0-15.0); Lymphocyte % 23.7 % (19-41); Mean Corp Hgb Conc 32.7 g/dL (32-36); Mean Corpuscular Hgb 28.1 pg (27.0-32.0); Mean Platelet Vol. 9.2 fl (6.2-12.0); Monocyte# 0.69 X10^3/uL; Monocyte% 6.5 % (0-10); NRBC Flagged by Analyzer 0 % (0-5); Neutrophil # 7.14 X10^3/uL (2.7-7.7); Neutrophil % 67.7 % (47-70); Platelet Count 292 K/mm3 (150-450); RBC Distribution Width CV 13.1 % (11.6-14.6); RBC Distribution Width SD 40.9 fl (35.1-43.9); Red Blood Count 4.13 M/mm3 (4.2-5.4); White Blood Count 10.6 K/mm3 (4.4-11.0)
[2021-06-29 11:05] LABS: Bedside Glucose 139 mg/dL (74-106)
[2021-06-29] MEDS: oxyCODONE 5 MG Tablet PO (11:07)
[2021-06-29] MEDS: Enoxaparin 40 MG/0.4 ML Syringe SC (11:07)
[2021-06-29] MEDS: Docusate Sodium 100 MG Capsule PO (11:17)
[2021-06-29] MEDS: Neomycin/Bacitracin/Polymyxin Opth. Ointment 1 APPLIC EACH EYE (15:01)
[2021-06-29] MEDS: Ondansetron ODT 4 MG Tablet PO (16:17)
[2021-06-29] MEDS: Pantoprazole Sodium 40 MG Tablet PO (16:17)
[2021-06-29 17:00] LABS: Bedside Glucose 101 mg/dL (74-106)
== END 2021-06-29 19:08 | disposition home or self-care (01) ==
LOC: SDC 16:47 → MS3 16:47
PROVIDERS: Admitting Provider Obstetrics & Gynecology; PCP Internal Medicine; Referring Provider Obstetrics & Gynecology; Visit Provider Obstetrics & Gynecology
PROC: 0UT9FZZ Resection of Uterus, Via Natural or Artificial Opening With Percutaneous Endoscopic Assistance (ICD-10-PCS; CPT 58550; principal; 2021-06-28 07:05)
DX: N94.12 Deep dyspareunia (principal); E11.9 Type 2 diabetes mellitus without complications; G89.29 Other chronic pain; F41.9 Anxiety disorder, unspecified; M19.90 Unspecified osteoarthritis, unspecified site; J45.909 Unspecified asthma, uncomplicated; Z79.899 Other long term (current) drug therapy; N76.0 Acute vaginitis; K21.9 Gastro-esophageal reflux disease without esophagitis; F32.A Depression, unspecified; I10 Essential (primary) hypertension; E28.2 Polycystic ovarian syndrome; G47.30 Sleep apnea, unspecified; E07.9 Disorder of thyroid, unspecified; Z98.84 Bariatric surgery status; Z79.84 Long term (current) use of oral hypoglycemic drugs; K91.72 Accidental puncture and laceration of a digestive system organ or structure during other procedure; Y92.234 Operating room of hospital as the place of occurrence of the external cause; N88.8 Other specified noninflammatory disorders of cervix uteri
CPT/HCPCS: 58550; 00840; 49320; 36415; 82962; 84703; 85025; 85027; 88307; 94762; 96365; 96372; 96375; 99218; 99251; J7120; G0378; G0463; J2405

== ENCOUNTER → 2021-07-11 | Outpatient (CLI) | payer MEDICAID, SELFPAY | END | disposition home or self-care (01) | LOC: LABSPEC 07-12 06:48 | PROVIDERS: PCP Internal Medicine; Referring Provider Obstetrics & Gynecology; Visit Provider Obstetrics & Gynecology | DX: R30.0 Dysuria (principal) | CPT/HCPCS: 87086; 87088 ==

== ENCOUNTER 2021-10-24 12:40 | Emergency (ER) | payer MEDICAID, SELFPAY ==
[2021-10-24 12:41] VITALS: BP 131/77; PULSE 82; RESP 14; TEMP 36.4; O2SAT 97; BMI 31.0
--- NOTE | 2021-10-24 13:28 | CM.ED ---
Social Work Note SERENE received call from Deborah at [facility]. Deborah advised that the [facility]. Patient has reported that she was at work and had thoughts of using a [place] army knife to kill herself as well as saving her medicine from an earlier operation this year. Patient is suicidal. No AH/VH. Patient is flt and extremely depressed. Deborah from [facility] will complete the assessment and is recommending inpatient psych. SERENE met with Deborah from [facility]. She completed the pink slip for patient. SERENE called [facility]. The intake was not aware of bed situation and status and advised to fax in the referral. Plan: Inpatient psych Arcelia PELAYO
[2021-10-24 13:56] LABS: Absolute Lymphocyte Count 3.36 X10^3/uL (0.83-4.51); Absolute Neutrophil Count 7.2 X10^3/uL (2.0-7.7); Basophil# 0.06 X10^3/uL; Basophil% 0.5 % (0-1); Eosinophil# 0.53 X10^3/uL; Eosinophils% 4.5 % (0-5); Hematocrit 41.4 % (37-47); Lymphocyte # 3.36 X10^3/ul (0.83-4.51); Lymphocyte % 28.6 % (19-41); Mean Corp Hgb Conc 33.8 g/dL (32-36); Mean Corpuscular Hgb 28.5 pg (27.0-32.0); Mean Corpuscular Volume 84.3 fL (81-99); Mean Platelet Vol. 9.1 fl (6.2-12.0); Monocyte# 0.55 X10^3/uL; Monocyte% 4.7 % (0-10); NRBC Flagged by Analyzer 0 % (0-5); Neutrophil # 7.22 X10^3/uL (2.7-7.7); Neutrophil % 61.5 % (47-70); Platelet Count 354 K/mm3 (150-450); RBC Distribution Width CV 12.9 % (11.6-14.6); RBC Distribution Width SD 39.8 fl (35.1-43.9); Red Blood Count 4.91 M/mm3 (4.2-5.4); White Blood Count 11.7 K/mm3 (4.4-11.0)
[2021-10-24 14:11] LABS: Anion Gap 6 (5-15); BUN 12 mg/dL (7-18); BUN/Creat Ratio 17.6 RATIO (10-20); Calcium,Total 9.1 mg/dL (8.5-10.1); Chloride 109 mmol/L (98-107); Creatinine, Serum 0.68 mg/dL (0.55-1.02); EST Glomerular Filtration Rate 102 mL/min (>60); Est Glom Filt Rate - Afr Amer 123 mL/min (>60); Estimated Creatinine Clearance 116.08 ml/min; Glucose 88 mg/dL (74-106); Potassium 4.3 mmol/L (3.5-5.1); Sodium Level 140 mmol/L (136-145)
[2021-10-24 14:20] LABS: Alcohol, Blood (Medical)-Serum < 3.0 mg/dL
[2021-10-24 14:40] VITALS: RESP 18
--- NOTE | 2021-10-24 15:08 | EX.ED.VIS.PS ---
HPI HPI - Psych History of Present Illness Chief Complaint: Mental Health Narrative Narrative: Patient with past medical history of depression, asthma, and type 2 diabetes presents from the counseling center with increasing depression. She states I got pink slipped. She states that she has not been admitted for psychiatric reasons for approximately 5 years, the last being at [facility]. She endorses decreased appetite and mild insomnia. While she states that she would not commit suicide out in the open she went to the counseling center today because she had an appointment but has had increasing depression recently. She denies feeling helpless or hopeless. She denies any physical symptoms such as chest pain or shortness of breath, no nausea or vomiting, no dysuria or hematuria. [facility] Medical History Alcohol use Anemia Anxiety Arthritis Asthma Back pain Cardiology follow-up encounter Chronic cough Chronic pelvic pain in female Deep dyspareunia Depression Diabetes Fatty liver Gastric reflux History of echocardiogram History of IBS History of pain when walking History of stress test HTN (hypertension) Hypothyroidism Injury of back Injury of head and neck Loss of consciousness Migraine headache Non-smoker PCOS (polycystic ovarian syndrome) POTS (postural orthostatic tachycardia syndrome) Shortness of breath on exertion Sleep apnea Thyroid disease Type 2 diabetes mellitus Wears contact lenses Wears glasses Yeast infection Home Medications enalapril maleate 2.5 mg tablet 2.5 mg PO QHS protect kidneys 06/07/13 [History Last Taken 06/27/21] metformin 500 mg tablet,extended release 24 hr 1,000 mg PO BID diabetes 06/07/13 [History Last Taken 06/27/21] pantoprazole 40 mg tablet,delayed release 40 mg PO DAILY PRN REFLUX 02/05/16 [History Last Taken 06/27/21] fluvoxamine 25 mg tablet 1.5 tab PO QHS DEPRESSION 06/29/18 [History Last Taken 06/27/21] lorazepam 1 mg tablet 1 mg PO BID PRN PRN Anxiety 03/06/19 [History Last Taken 06/27/21] lidocaine 1.8 % topical patch 1 patch topical PRN PRN Pain 04/08/20 [History Last Taken 06/27/21] metaxalone 800 mg tablet (Skelaxin) 800 mg PO TID 04/08/20 [History Last Taken 06/27/21] semaglutide 0.25 mg or 0.5 mg (2 mg/1.5 mL) subcutaneous pen injector (Ozempic) 0.25 mg subcut QWEEK 12/16/20 [History Last Taken 06/27/21] cholecalciferol (vitamin D3) 125 mcg (5,000 unit) tablet (Vitamin D3) 125 mcg PO DAILY 05/10/21 [History Last Taken 06/27/21] fluticasone propionate 50 mcg/actuation nasal spray,suspension 1 spray intranasal PRN PRN ALLERGIES 05/10/21 [History Last Taken 06/27/21] multivitamin 1 tab PO DAILY 05/10/21 [History Last Taken 06/27/21] ubrogepant 100 mg tablet (Ubrelvy) 100 mg PO PRN PRN MIGRAINES 05/10/21 [History Last Taken 06/27/21] nystatin 100,000 unit/gram topical powder (Nystop) 1 applic topical BID #45 ea 08/15/21 [Rx Last Taken Unknown] Allergy/AdvReac Type Severity Reaction Status Date / Time Corticosteroids Allergy Intermediate Other Verified 10/24/21 12:47 (Glucocorticoids) atorvastatin [From Lipitor] Allergy Rash Verified 10/24/21 12:47 ciprofloxacin [From Cipro] Allergy Anaphylaxis Verified 10/24/21 12:47 ciprofloxacin HCl Allergy Anaphylaxis Verified 10/24/21 12:47 [From Cipro] peanut Allergy Other Verified 10/24/21 12:47 strawberry Allergy Hives Verified 10/24/21 12:47 Sulfa (Sulfonamide Allergy Shortness Verified 10/24/21 12:47 Antibiotics) of breath tomato Allergy Food Verified 10/24/21 12:47 Allergy tramadol Allergy Hives Verified 10/24/21 12:47 wheat Allergy Food Verified 10/24/21 12:47 Allergy adhesive AdvReac Other Verified 10/24/21 12:47 albuterol AdvReac Other Verified 10/24/21 12:47 aspirin AdvReac Nausea/Vom/ Verified 10/24/21 12:47 Diarrhea diphenhydramine AdvReac Shortness Verified 10/24/21 12:47 [From Benadryl] of breath duloxetine [From Cymbalta] AdvReac Other Verified 10/24/21 12:47 morphine AdvReac Shortness Verified 10/24/21 12:47 of breath nickel AdvReac Rash Verified 10/24/21 12:47 nifedipine AdvReac Chest Verified 10/24/21 12:47 tightness Opioids - Morphine Analogues AdvReac Inflammation Verified 10/24/21 12:47 of vein sumatriptan [From Imitrex] AdvReac Vomiting Verified 10/24/21 12:47 sumatriptan succinate AdvReac Vomiting Verified 10/24/21 12:47 [From Imitrex] topiramate [From Topamax] AdvReac Other Verified 10/24/21 12:47 venlafaxine [From Effexor] AdvReac Other Verified 10/24/21 12:47 nifedipine Allergy Intermediate Other Uncoded 10/24/21 12:47 Family History Grandmother Heart disease Diabetes Asthma Grandmother Diabetes PCOS (polycystic ovarian syndrome) Migraines Cataracts, bilateral Surgical History Bariatric surgery status Deviated septum H/O bilateral salpingectomy History of cholecystectomy History of nasal surgery Hx of eye surgery l breast scar tissue removal S/P laparoscopic assisted vaginal hysterectomy (LAVH) turbinate surgery' Social History household members: significant other number of children: 0 current occupational status: employed current occupation: [employer] history of recent travel: No sexually active: Yes Smoking Status: Never smoker alcohol intake: current alcohol intake frequency: a few times a month substance use type: marijuana diet: low carbohydrate and vegetarian what type of physical activity do you participate in: walking seatbelt use: always do you feel safe at home: Yes additional social history: boyfriend - Anshu Gaitan ROS ROS ED ROS Narrative Constitutional: No fever, no chills. HEENT: No sore throat. No neck pain. No loss of vision. No rhinorrhea. Cardiovascular: No chest pain. No palpitations. No pedal edema. Respiratory: No cough, no shortness of breath. Abdominal: No abdominal pain. No nausea. No vomiting. Genitourinary: No dysuria. No hematuria. Musculoskeletal: No myalgias. No arthralgias. Neurologic: No headaches. No dizziness. No lightheadedness. Skin: No rash. No change in color. Psychiatric: Positive depression. Mild anxiety. Chronic suicidal thoughts. EXAM Physical Exam Narrative Exam Narrative: Afebrile. Vital signs noted. HEENT: Normocephalic. Atraumatic. PERRL, EOMI. Neck soft and supple. No point tenderness or step off. Cardiovascular: Regular rate and rhythm. No murmurs, rubs, or gallops appreciated. Respiratory: No tachypnea. Lungs clear to auscultation bilaterally. Gastrointestinal: Abdomen soft, nontender, with normoactive bowel sounds. No rebound or guarding. Neurological: Awake. Alert. Nonfocal, nonlateralizing. Skin: No rash. Normal color. No pallor. Musculoskeletal: No pedal edema. Full range of motion extremities. Psychiatric: Flat to depressed affect. Poor eye contact. Evasive when asked about suicidal thoughts. Const Vital Signs: 10/24/21 12:41 10/24/21 14:40 10/24/21 18:14 Temperature 97.5 F L Temperature Source Temporal Pulse Rate 82 78 Respiratory Rate 14 18 18 Blood Pressure 131/77 H 116/74 Blood Pressure Mean 95 88 Pulse Ox 97 98 Oxygen Delivery Method Room Air Room Air Room Air MDM MDM MDM Narrative Medical decision making narrative: Medical screening labs were obtained. Ethyl alcohol is negative. Patient has had partial hysterectomy. In review of her pink slip, she was a walk-in at crisis for chronic suicidal thoughts with plan and intent. It was reported that she was using a knife to open a box at work and she thought about wanting to end her life. When she is medically cleared, patient will be discussed with crisis for placement. EKG was obtained interpreted by myself which demonstrates normal sinus rhythm with a sinus arrhythmia at [address] changes. No STEMI. Her screening labs are grossly unremarkable, ethyl alcohol negative at less than 3, urine drug screen positive for cannabinoids. I do feel that she is medically cleared for placement. I was informed that she has been accepted at [facility] and is awaiting bed assignment. She is in stable condition. Disposition is transferred. Lab Data Attestation: I reviewed the patient's lab results. Labs: Laboratory Results - last 24 hr 10/24/21 10/24/21 10/24/21 13:42 13:42 13:42 WBC 11.7 H RBC 4.91 Hgb 14.0 Hct 41.4 MCV 84.3 MCH 28.5 MCHC 33.8 RDW Std Deviation 39.8 RDW Coeff of Yair 12.9 Plt Count 354 MPV 9.1 Immature Gran % (Auto) 0.200 Neut % (Auto) 61.5 Lymph % (Auto) 28.6 Heard % (Auto) 4.7 Eos % (Auto) 4.5 Baso % (Auto) 0.5 Absolute Neuts (auto) 7.2 Absolute Lymphs (auto) 3.36 Nucleated RBC % 0 Sodium 140 Potassium 4.3 Chloride 109 H Carbon Dioxide 25.0 Anion Gap 6 BUN 12 Creatinine 0.68 Estim Creat Clear Calc 116.08 Est GFR (MDRD) Af Amer 123 Est GFR (MDRD) Non-Af 102 BUN/Creatinine Ratio 17.6 Glucose 88 Calcium 9.1 Urine Opiates Screen Urine Methadone Screen Ur Barbiturates Screen Ur Phencyclidine Scrn Ur Amphetamines Screen MDMA (Ecstasy) Screen U Benzodiazepines Scrn Urine Cocaine Screen U Cannabinoids Screen Ur Drug Screen Comment Ethyl Alcohol < 3.0 10/24/21 18:16 WBC RBC Hgb Hct MCV MCH MCHC RDW Std Deviation RDW Coeff of Yair Plt Count MPV Immature Gran % (Auto) Neut % (Auto) Lymph % (Auto) Heard % (Auto) Eos % (Auto) Baso % (Auto) Absolute Neuts (auto) Absolute Lymphs (auto) Nucleated RBC % Sodium Potassium Chloride Carbon Dioxide Anion Gap BUN Creatinine Estim Creat Clear Calc Est GFR (MDRD) Af Amer Est GFR (MDRD) Non-Af BUN/Creatinine Ratio Glucose Calcium Urine Opiates Screen NEGATIVE Urine Methadone Screen NEGATIVE Ur Barbiturates Screen NEGATIVE Ur Phencyclidine Scrn NEGATIVE Ur Amphetamines Screen NEGATIVE MDMA (Ecstasy) Screen NEGATIVE U Benzodiazepines Scrn NEGATIVE Urine Cocaine Screen NEGATIVE U Cannabinoids Screen POSITIVE H Ur Drug Screen Comment Ethyl Alcohol Discharge Plan Triage Chief Complaint: Mental Health ED Provider: Ward Solorio Dx/Rx/DC Orders Clinical Impression: Depression, Suicidal ideation Prescriptions: No Action lidocaine 1.8 % adhesive patch,medicated 1 patch TOPICAL PRN PRN (Reason: Pain) Rx Instructions: leave on most painful area for up to 12 hrs metaxalone [Skelaxin] 800 mg tablet 800 mg PO TID Ozempic 0.25 mg or 0.5 mg(2 mg/1.5 mL) pen injector 0.25 mg subcut QWEEK nystatin [Nystop] 100,000 unit/gram powder 1 applic topical BID Qty: 45 7RF metformin 500 MG tablet 1,000 mg PO BID enalapril maleate 2.5 MG tablet 2.5 mg PO QHS pantoprazole 40 MG tablet 40 mg PO DAILY PRN (Reason: REFLUX) fluvoxamine 25 MG tablet 1.5 tab PO QHS lorazepam 1 MG tablet 1 mg PO BID PRN PRN (Reason: Anxiety) multivitamin Tablet 1 tab PO DAILY cholecalciferol (vitamin D3) [Vitamin D3] 125 mcg (5,000 unit) Tablet 125 mcg PO DAILY Ubrelvy 100 mg Tablet 100 mg PO PRN PRN (Reason: MIGRAINES) fluticasone propionate 50 mcg/actuation spray,suspension 1 spray INTRANASAL PRN PRN (Reason: ALLERGIES) Label Comments: instill 2 sprays into each nostril once daily Rinse mouth after use Primary Care Provider: Shirlene George Referrals: Shirlene George MD [Primary Care Provider] - Disposition Disposition: Psychiatric Hospital or Unit Discharge Location: [facility]
--- NOTE | 2021-10-24 16:47 | CM.ED ---
SERENE Note SERENE met with patient and updated her that patient needs psych placement and this rfp writer is looking for psych placement. Patient asked if she could go home and rfp writer explained to patient that she has been pink slipped. SERENE called [facility] for an update. They said that the call center will need to talk to this rfp writer for update. SERENE called [facility]. They have beds. SERENE faxed referral to [facility]. Arcelia PELAYO
--- NOTE | 2021-10-24 18:13 | EKG12_ITS ---
Test Reason : MEDICAL CLEARANCE Blood Pressure : / mmHG Vent. Rate : 074 BPM Atrial Rate : 074 BPM P-R Int : 168 ms QRS Dur : 066 ms QT Int : 398 ms P-R-T Axes : 067 059 057 degrees QTc Int : 441 ms Normal sinus rhythm with sinus arrhythmia Low voltage QRS Borderline ECG Confirmed by ERIKA STONE, IAN ([id number]), script editor GLORY SUAZO ([id number]) on 10/25/2021 8:20:35 AM Referred By: Confirmed By:IAN JAMES MD
[2021-10-24 18:14] VITALS: BP 116/74; PULSE 78; RESP 18; O2SAT 98
--- NOTE | 2021-10-24 18:48 | CM.ED ---
SERENE received call from [facility]. [facility] marine pipe welder said that Dr. Dewitt said that he would accept patient. [place] slip has been completed by Deborah at [facility]. [place] Slip was faxed to [facility]. SERENE updated RAFAEL PELAYO
[2021-10-24 19:00] LABS: Amphetamine Urine VISTA NEGATIVE (<1000 ng/mL); Barbiturate Urine VISTA NEGATIVE (< 200 ng/mL); Benzodiazepine Urine VISTA NEGATIVE (< 200 ng/mL); Cocaine Urine VISTA NEGATIVE (< 300 ng/mL); Ecstacy Urine VISTA NEGATIVE (< 500 ng/mL); Methadone Urine VISTA NEGATIVE (< 300 ng/mL); PCP Urine VISTA NEGATIVE (< 25 ng/mL); THC Urine VISTA POSITIVE (< 50 ng/mL); Vista UDS pH Range 4
--- NOTE | 2021-10-24 19:09 | CM.ED ---
SERENE called [facility] and advised that placement was not needed. Arcelia PELAYO
--- NOTE | 2021-10-24 19:41 | CM.ED ---
SERENE received call from [facility]. Patient accepted at [facility]. Accepting MD is Dr. Dewitt. Room 3306. . Arcelia PELAYO
[2021-10-24 19:56] LABS: Bedside Glucose 85 mg/dL (74-106)
--- NOTE | 2021-10-24 19:59 | NURSING ---
Addendum entered by Tereza Sequeira 10/24/21 23:51: CALLED [facility] FOR UPDATED ETA FOR TRANSPORT, GAVE ANOTHER 60-90 MIN, DUE TO STAFFING THEY SAID PULLING CREW FROM [facility]. Addendum entered by Tereza Sequeira 10/24/21 22:04: CALLED FOR AN UPDATED ETA FOR TRANSPORT AND [facility] SAID AT LEAST 90 MIN. Original Note: CALLED [facility] 1941 ETA 90M-2HR
--- NOTE | 2021-10-24 21:03 | ED.RN ---
RN report given to Lala HALL @ 1683.
[2021-10-24] MEDS: FLUVOXAMINE MALEATE 25 MG TABLET PO (21:51)
[2021-10-24] MEDS: ENALAPRIL MALEATE 2.5 MG TABLET PO (21:51)
[2021-10-24 21:56] VITALS: BP 115/76; PULSE 76; RESP 16; TEMP 36.6; O2SAT 98
--- NOTE | 2021-10-24 22:06 | ED.RN ---
new transport time by [facility], estimated [id number].
[2021-10-25 00:52] VITALS: BP 110/79; PULSE 66; RESP 15; TEMP 36.7; O2SAT 99
== END 2021-10-25 02:15 ==
PROVIDERS: Emergency Provider Emergency Medicine; PCP Internal Medicine; Visit Provider Emergency Medicine
DX: F32.A Depression, unspecified (principal); E11.9 Type 2 diabetes mellitus without complications; R45.851 Suicidal ideations; F41.9 Anxiety disorder, unspecified; J45.909 Unspecified asthma, uncomplicated; K76.0 Fatty (change of) liver, not elsewhere classified; K21.9 Gastro-esophageal reflux disease without esophagitis; E03.9 Hypothyroidism, unspecified; I10 Essential (primary) hypertension; E28.2 Polycystic ovarian syndrome; I49.8 Other specified cardiac arrhythmias; G47.30 Sleep apnea, unspecified; K58.9 Irritable bowel syndrome, unspecified; G89.29 Other chronic pain; Z79.899 Other long term (current) drug therapy; Z79.84 Long term (current) use of oral hypoglycemic drugs; Z98.84 Bariatric surgery status; F12.90 Cannabis use, unspecified, uncomplicated
CPT/HCPCS: 80048; 80307; 82077; 82962; 85025; 87811; 93005; 99285

== ENCOUNTER 2022-09-04 16:05 | Emergency (ER) | payer MEDICARE, MEDICAID, SELFPAY ==
[2022-09-04 16:06] VITALS: BP 117/78; PULSE 128; RESP 20; TEMP 36.6; O2SAT 94; BMI 28.9
--- NOTE | 2022-09-04 17:27 | CT_ITS ---
STUDY: CT CERVICAL SPINE WITHOUT CONTRAST REASON FOR EXAM: Female, 41 years old. Neck pain RADIATION DOSAGE (If Supplied By Facility): CTDIvol = ( 23.27 ) mGy, DLP = ( 501.14 ) mGycm TECHNIQUE: High resolution transaxial imaging was performed without contrast material. Sagittal and coronal images were reconstructed. Individualized dose optimization techniques were used for this CT. COMPARISON: None FINDINGS: Normal craniovertebral junction. Normal anterior atlantoaxial articulation. Normal odontoid process. There is reversal of the normal cervical lordosis. There is grade 1 anterolisthesis at C3-4. There is no acute fracture. Normal vertebral bodies and posterior osseous elements. C2-3: Normal endplates. Normal disc height and morphology. Normal central canal and intervertebral neuroforamina. C3-4: Normal endplates. Normal disc height and morphology. Normal central canal and intervertebral neuroforamina. C4-5: Spurring to the right. Mild facet spurring. Mild canal stenosis. Right foraminal narrowing. C5-6: Normal endplates. Normal disc height and morphology. Normal central canal and intervertebral neuroforamina. C6-7: Normal endplates. Normal disc height and morphology. Normal central canal and intervertebral neuroforamina. C7-T1: Normal endplates. Normal disc height and morphology. Normal central canal and intervertebral neuroforamina. Normal visualized soft tissue structures. CT/Spine Cervical without Contras IMPRESSION: Degenerative changes with C4-5 canal stenosis and right foraminal narrowing. Electronically Signed: Ajit Burk MD at 19:03 EDT ,
--- NOTE | 2022-09-04 17:27 | CT_ITS ---
STUDY: CT BRAIN WITHOUT CONTRAST REASON FOR EXAM: Female, 41 years old. Head injury RADIATION DOSAGE (If Supplied By Facility): CTDIvol = ( 44.99 ) mGy, DLP = ( 779.24 ) mGycm TECHNIQUE: Transaxial CT imaging of the brain was performed without administration of intravenous contrast material. Individualized dose optimization techniques were used for this CT. COMPARISON: No relevant priors. FINDINGS: Normal soft tissue structures. Normal calvarium. Normal size ventricles and extra-axial spaces for the patient''s age. Normal white matter tracts of the cerebral hemispheres. Normal basal ganglia and thalami. Normal brainstem. Normal cerebellum. There is no intracranial hemorrhage. There are no findings of an acute ischemic infarction. Normal visualized paranasal sinuses. CT/Brain/Head without Contrast IMPRESSION: Normal unenhanced CT scan of the brain. Electronically Signed: Ajit Burk MD at 18:51 EDT ,
[2022-09-04] MEDS: HYDROcodone Bitartrate/Apap 5/325 Tablet PO (17:36)
--- NOTE | 2022-09-04 17:47 | RAD_ITS ---
STUDY: X-RAY - LEFT SHOULDER REASON FOR EXAM: Female, 41 years old. pain TECHNIQUE: 4 view(s) of the shoulder. COMPARISON: None. FINDINGS: Normal glenohumeral articulation. Normal acromioclavicular joint. Normal acromion. Normal humeral head and visualized proximal humerus. The soft tissue structures are unremarkable. There is no demonstrated fracture. Normal visualized pulmonary apex. RAD/Shoulder min 2 Views IMPRESSION: Normal x-ray examination of the shoulder. Electronically Signed: Ajit Burk MD at 19:09 EDT ,
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
[2022-09-04 20:07] VITALS: BP 114/71; PULSE 110; RESP 14; O2SAT 98
== END 2022-09-04 20:15 | disposition home or self-care (01) ==
PROVIDERS: Emergency Provider Student in an Organized Health Care Education/Training Program; PCP Internal Medicine; Visit Provider Student in an Organized Health Care Education/Training Program
DX: S16.1XXA Strain of muscle, fascia and tendon at neck level, initial encounter (principal); E11.9 Type 2 diabetes mellitus without complications; M54.12 Radiculopathy, cervical region; I10 Essential (primary) hypertension; F12.90 Cannabis use, unspecified, uncomplicated; G47.30 Sleep apnea, unspecified; Z79.899 Other long term (current) drug therapy; Z79.84 Long term (current) use of oral hypoglycemic drugs; V89.2XXA Person injured in unspecified motor-vehicle accident, traffic, initial encounter
CPT/HCPCS: 70450; 72125; 73030; 99282

== ENCOUNTER → 2023-01-11 | Outpatient (CLI) | payer MEDICARE, MEDICAID, SELFPAY ==
--- NOTE | 2023-01-11 15:28 | BI_ITS ---
MAMMOGRAPHY - BILATERAL SCREENING REASON FOR EXAM: Female, 42 years old. Routine annual screening examination. PERTINENT HISTORY: Non-contributory. TECHNIQUE: Digital bilateral breast elisabet (3D mammographic acquisition) in the CC and MLO projections. 2-D mediolateral oblique (MLO) and craniocaudad (CC) views of both breasts were obtained. CAD: Full Field Digital Mammography with Computer Added Detection was performed. COMPARISON: Comparison is made with prior study dated February 24, 2021 and November 27, 2017. FINDINGS: Breast Composition: There are scattered areas of fibroglandular density. There are no dominant masses or suspicious calcifications. Stable benign-appearing bilateral axillary lymph nodes. No other significant abnormalities are identified. There has been no significant change since the prior study. BI/SCRN MAMM (CAD)W/ELISABET BILAT IMPRESSION: Stable bilateral screening mammogram. Yearly follow-up mammogram recommended. (A) ASSESSMENT CATEGORY: BIRADS Category 2: Benign. A letter regarding these results will be sent to the patient by the facility within 30 days. Approximately 10% of breast cancers are not detected by mammography. A normal mammogram should not delay biopsy of a clinically suspicious abnormality. [id number] Electronically Signed: Jared Salazar MD at 8:29 EST ,
== END | disposition home or self-care (01) ==
PROVIDERS: PCP Internal Medicine; Referring Provider Obstetrics & Gynecology; Visit Provider Obstetrics & Gynecology
DX: Z12.31 Encounter for screening mammogram for malignant neoplasm of breast (principal)
CPT/HCPCS: 77063; 77067

== ENCOUNTER 2023-05-16 16:30 | Emergency (ER) | payer MEDICARE, MEDICAID, SELFPAY ==
[2023-05-16 16:31] VITALS: BP 155/92; PULSE 98; RESP 20; TEMP 36.8; O2SAT 100; BMI 31.0
--- NOTE | 2023-05-16 17:36 | CT_ITS ---
STUDY: CT ABDOMEN AND PELVIS WITHOUT CONTRAST REASON FOR EXAM: Female, 42 years old. flank pain RADIATION DOSAGE (If Supplied By Facility): CTDIvol = ( 18.90 ) mGy, DLP = ( 1076.60 ) mGycm TECHNIQUE: Transaxial images were obtained from the dome of the diaphragm to the symphysis pubis without oral contrast, and without intravenous contrast. Sagittal and coronal images were reconstructed. Individualized dose optimization techniques were used for this CT. COMPARISON: None. FINDINGS: The visualized lung bases are unremarkable. The visualized portions of the heart are within normal limits. There is decreased attenuation of the liver consistent with steatosis. There are surgical clips in the gallbladder fossa consistent with a prior cholecystectomy. Normal spleen. Normal pancreas. Normal bilateral adrenal glands. Normal right kidney. Normal left kidney. Evaluation of the GI tract is limited by absence of oral contrast. There has been previous gastric sleeve surgery. Cannot exclude stomach wall thickening. No dilated loops of bowel or evidence for obstruction. Cannot exclude segmental thickening of the browning of the small or large bowel. Cannot exclude enteritis or colitis. Moderate diffuse fecal retention. Appendix within normal limits. Normal abdominal aorta. Normal inferior vena cava. Normal retroperitoneum. Normal urinary bladder. Normal abdominal wall. Normal osseous structures. CT/Abdomen/Pelvis without Cont IMPRESSION: No definite acute or significant abnormality seen. Electronically Signed: Tom Robledo MD at 18:54 EDT ,
--- NOTE | 2023-05-16 17:37 | EX.ED.DYSGE1 ---
HPI History of Present Illness Chief Complaint: Flank Pain Informant: patient and spouse/S.O. Narrative Narrative: Nontraumatic worsening left flank pain for the last 2 days. 5 days ago noted pink urine. Went to urgent care states that urine test including culture returned negative. Having chills and nausea with pain. Denies history of kidney stones. Diabetic on medications. Multiple allergies tolerated Zofran and Dilaudid in the past. Partial hysterectomy in the past. Denies dysuria or frequency. Prior similar symptoms: No PFSH PFSH Medical History Alcohol use Anemia Anxiety Arthritis Asthma Autism Back pain Cardiology follow-up encounter Chronic cough Chronic pelvic pain in female Deep dyspareunia Depression Diabetes Fatty liver Gastric reflux History of echocardiogram History of IBS History of pain when walking History of stress test HTN (hypertension) Hypothyroidism Injury of back Injury of head and neck Loss of consciousness Migraine headache Non-smoker PCOS (polycystic ovarian syndrome) POTS (postural orthostatic tachycardia syndrome) Shortness of breath on exertion Sleep apnea Thyroid disease Type 2 diabetes mellitus Wears contact lenses Wears glasses Yeast infection Home Medications enalapril maleate 2.5 mg tablet 2.5 mg PO QHS protect kidneys 06/07/13 [History Last Taken 06/27/21] metformin 500 mg tablet,extended release 24 hr 1,000 mg PO BID diabetes 06/07/13 [History Last Taken 06/27/21] pantoprazole 40 mg tablet,delayed release 40 mg PO DAILY PRN REFLUX 02/05/16 [History Last Taken 06/27/21] lorazepam 1 mg tablet 1 mg PO BID PRN PRN Anxiety 03/06/19 [History Last Taken 06/27/21] semaglutide 0.25 mg or 0.5 mg (2 mg/1.5 mL) subcutaneous pen injector (Ozempic) 0.25 mg subcut QWEEK 12/16/20 [History Last Taken 06/27/21] ubrogepant 100 mg tablet (Ubrelvy) 100 mg PO PRN PRN MIGRAINES 05/10/21 [History Last Taken 06/27/21] fluvoxamine 50 mg tablet 50 mg PO DAILY #30 tabs 12/14/22 [Rx Last Taken Unknown] dextromethorphan 20 mg-quinidine 10 mg capsule (Nuedexta) 1 cap PO DAILY 05/16/23 [History Last Taken Unknown] fexofenadine-pseudoephedrine ER 180 mg-240 mg tablet,ext.release 24 hr (24HR Allergy-Congestion Relief) 1 tab PO DAILY 05/16/23 [History Last Taken Unknown] guaifenesin 600 mg tablet, extended release 12 hr (Mucus Relief ER) 600 mg PO BID 05/16/23 [History Last Taken Unknown] levalbuterol tartrate 45 mcg/actuation aerosol inhaler 2 puff inhalation Q4H PRN shortness of breath or wheezing 05/16/23 [History Last Taken Unknown] lidocaine 5 % topical patch 2 patch transdermal DAILY 05/16/23 [History Last Taken Unknown] olopatadine 0.1 % eye drops 1 drp ophthalmic (eye) BID 05/16/23 [History Last Taken Unknown] ondansetron 8 mg disintegrating tablet 8 mg PO Q8H PRN nausea and vomiting 05/16/23 [History Last Taken Unknown] triamcinolone acetonide 55 mcg nasal spray aerosol 2 spray intranasal DAILY 05/16/23 [History Last Taken Unknown] Allergy/AdvReac Type Severity Reaction Status Date / Time Corticosteroids Allergy Intermediate Other Verified 05/16/23 16:35 (Glucocorticoids) atorvastatin [From Lipitor] Allergy Rash Verified 05/16/23 16:35 ciprofloxacin [From Cipro] Allergy Anaphylaxis Verified 05/16/23 16:35 ciprofloxacin HCl Allergy Anaphylaxis Verified 05/16/23 16:35 [From Cipro] peanut Allergy Other Verified 05/16/23 16:35 strawberry Allergy Hives Verified 05/16/23 16:35 Sulfa (Sulfonamide Allergy Shortness Verified 05/16/23 16:35 Antibiotics) of breath tomato Allergy Food Verified 05/16/23 16:35 Allergy tramadol Allergy Hives Verified 05/16/23 16:35 wheat Allergy Food Verified 05/16/23 16:35 Allergy adhesive AdvReac Other Verified 05/16/23 16:35 albuterol AdvReac Other Verified 05/16/23 16:35 aspirin AdvReac Nausea/Vom/ Verified 05/16/23 16:35 Diarrhea diphenhydramine AdvReac Shortness Verified 05/16/23 16:35 [From Benadryl] of breath duloxetine [From Cymbalta] AdvReac Other Verified 05/16/23 16:35 morphine AdvReac Shortness Verified 05/16/23 16:35 of breath nickel AdvReac Rash Verified 05/16/23 16:35 nifedipine AdvReac Chest Verified 05/16/23 16:35 tightness Opioids - Morphine Analogues AdvReac Inflammation Verified 05/16/23 16:35 of vein sumatriptan [From Imitrex] AdvReac Vomiting Verified 05/16/23 16:35 sumatriptan succinate AdvReac Vomiting Verified 05/16/23 16:35 [From Imitrex] topiramate [From Topamax] AdvReac Other Verified 05/16/23 16:35 venlafaxine [From Effexor] AdvReac Other Verified 05/16/23 16:35 Family History Grandmother Heart disease Diabetes Asthma Grandmother Diabetes PCOS (polycystic ovarian syndrome) Migraines Cataracts, bilateral Surgical History Bariatric surgery status Deviated septum H/O bilateral salpingectomy History of cholecystectomy History of nasal surgery Hx of eye surgery l breast scar tissue removal S/P laparoscopic assisted vaginal hysterectomy (LAVH) turbinate surgery' Social History household members: significant other number of children: 0 current occupational status: employed current occupation: [employer] history of recent travel: No sexually active: Yes Smoking Status: Never smoker alcohol intake: current alcohol intake frequency: a few times a month substance use type: marijuana diet: low carbohydrate and vegetarian what type of physical activity do you participate in: walking seatbelt use: always do you feel safe at home: Yes additional social history: boyfriend - Anshu Gaitan ROS ROS ED Constitutional Constitutional ED: Reports chills; Denies fever(s) or sweats Eyes Eyes: Denies change in vision ENT ENT ED: Denies dysphagia or sore throat Cardiovascular Cardiovascular: Denies chest pain, leg edema, palpitations or racing heartbeat Respiratory/Chest Respiratory/Chest: Denies cough, dyspnea or dyspnea on exertion Gastrointestinal Gastrointestinal: Reports nausea; Denies abdominal pain, diarrhea or vomiting Genitourinary Genitourinary ED: Reports other Details: [place] urine ; Denies dysuria, hematuria or urinary frequency Musculoskeletal Musculoskeletal: Reports back pain; Denies extremity pain or neck pain Integumentary Denies rash or wounds Neurologic Neurologic: Denies headache(s), paresthesias or weakness EXAM Physical Exam Const Vital Signs: 05/16/23 16:31 05/16/23 18:31 05/16/23 20:00 Temperature 98.2 F 97.4 F L 97.4 F L Temperature Source Temporal Temporal Temporal Pulse Rate 98 86 86 Respiratory Rate 20 H 16 16 Blood Pressure 155/92 H 112/53 L 112/53 L Blood Pressure Mean 113 72 72 Pulse Ox 100 97 97 Oxygen Delivery Method Room Air Room Air Room Air 05/16/23 20:55 Temperature 97.4 F L Temperature Source Pulse Rate 86 Respiratory Rate 16 Blood Pressure 112/53 L Blood Pressure Mean 72 Pulse Ox 97 Oxygen Delivery Method Positive well nourished and well developed Constitutional Narrative: Nontoxic General Appearance ED: well developed HEENT HEENT Narrative: Mild dry mucosal membranes. normocephalic and atraumatic Eyes PERRL, EOMs intact bilaterally and conjunctivae normal General Eye ED: Yes normal appearance of both eyes Neck no lymphadenopathy and supple General: Negative for tenderness Chest Wall Chest: Negative for tenderness Resp normal respiratory effort and normal air movement Effort and Inspection: symmetric chest movement; Negative for respiratory distress Cardio regular rate, regular rhythm and no murmurs Peripheral Pulses: pulses 2+ throughout GI normal to inspection, nondistended, normoactive bowel sounds and non-tender Palpation: Negative for guarding or rebound tenderness present Back/Spine no thoracic nor lumbar tenderness Back/Spine Narrative: Left CVA tenderness, no rash or ecchymosis. Extremity normal to inspection General Extremety ED: Negative for edema or tenderness General Extremity: Negative for edema Neuro oriented x3 and no sensory deficits noted Sensorium / Orientation: awake and alert Skin no rashes or lesions noted and no wounds MDM MDM MDM Narrative Medical decision making narrative: Interventions / MDM: Differential diagnosis: Flank pain Diagnosis considered but do not suspect: Kidney stones however CT negative. UTI/pyelonephritis. No clinical shingles. My EKG interpretation: N/A Imaging independently reviewed and interpreted by myself: CT abdomen pelvis: No obstructive uropathy no pyelonephritis, normal appendix. External documents reviewed: N/A Test considered but not ordered:N/A ED course: Persistent worsening left leg pain. Renal stone protocol be initiated. Dilaudid Zofran for symptom control. IV fluids. 193: CT scan negative for any acute process. No obstructive uropathy no inflammatory changes noted. Urine sent to lab and pending. Labs white count of 10 hemoglobin 13.5 creatinine 0.78. Requesting more pain medicines. Discussed results of CT scan with no obstructive findings or inflammatory findings. Discussed using alternative nonnarcotics there is no clear findings at this time. She has history of gastric bypass 6 years ago. She reports she has been given Toradol previously after this. I Offered Tylenol. However she requesting Toradol to be given IM. Urine returned slight hematuria leukocytes however also squamous cells. Urine culture sent. She denies any urine symptoms. Will wait culture to start antibiotics. Hematuria she will be referred to urology. She denies any tobacco history. Discussed continue Tylenol for nonspecific pain at this time. Avoiding prolonged NSAIDs with her history of gastric bypass surgery. All questions were answered. Re-evaluation: stable Disposition discussed with patient/family/significant other: Patient significant other Case discussed with consulting clinician: N/A This note was generated with [employer] dictation software. It may contain incorrect words, spelling, and punctuation that were not noted in checking the note before signing. Lab Data Attestation: I reviewed the patient's lab results. Labs: Laboratory Results - last 24 hr 05/16/23 05/16/23 17:26 19:33 WBC 10.7 RBC 5.06 Hgb 13.5 Hct 42.2 MCV 83.4 MCH 26.7 L MCHC 32.0 RDW Std Deviation 41.4 RDW Coeff of Yair 13.6 Plt Count 395 MPV 9.2 Immature Gran % (Auto) 0.200 Neut % (Auto) 58.0 Lymph % (Auto) 34.0 [place] % (Auto) 5.7 Eos % (Auto) 1.7 Baso % (Auto) 0.4 Absolute Neuts (auto) 6.2 Absolute Lymphs (auto) 3.64 Nucleated RBC % 0 Sodium 139 Potassium 4.2 Chloride 107 Carbon Dioxide 24.0 Anion Gap 8 BUN 14 Creatinine 0.78 Estim Creat Clear Calc 117.87 Est GFR (MDRD) Af Amer 105 Est GFR (MDRD) Non-Af 87 BUN/Creatinine Ratio 17.9 Glucose 95 Calcium 9.2 Serum , Qual NEGATIVE Urine Color Yellow Urine Clarity Sl. Cloudy Urine pH 5.0 Ur Specific Mcgrew 1.025 Urine Protein 15 H Urine Glucose (UA) Normal Urine Ketones 150 A* Urine Occult Blood 10 H Urine Nitrite Negative Urine Bilirubin 1 H Urine Urobilinogen Normal Ur Leukocyte Esterase 25 H Urine RBC 0 SEEN Urine WBC 0 SEEN Ur Squamous Epith Cells 5-10 SEEN Urine Bacteria 1+ Urine Mucus 0 SEEN Radiography Diagnostic Testing: Clinical Impression(s) from Imaging Studies Abdomen/Pelvis CT 05/16/23 17:36 IMPRESSION: No definite acute or significant abnormality seen. Electronically Signed: Tom Robledo MD at 18:54 EDT , Discharge Plan Triage Chief Complaint: Flank Pain ED Provider: Flakito Sevilla Dx/Rx/DC Orders Clinical Impression: Hematuria, Left flank pain Instructions: ED Flank Pain, Uncertain Cause, ED Hematuria Prescriptions: No Action Ozempic 0.25 mg or 0.5 mg(2 mg/1.5 mL) pen injector 0.25 mg subcut QWEEK fluvoxamine 50 mg tablet 50 mg PO DAILY Qty: 30 12RF metformin 500 MG tablet 1,000 mg PO BID enalapril maleate 2.5 MG tablet 2.5 mg PO QHS pantoprazole 40 MG tablet 40 mg PO DAILY PRN (Reason: REFLUX) lorazepam 1 MG tablet 1 mg PO BID PRN PRN (Reason: Anxiety) Ubrelvy 100 mg Tablet 100 mg PO PRN PRN (Reason: MIGRAINES) levalbuterol tartrate 45 mcg/actuation HFA aerosol inhaler 2 puff inhalation Q4H PRN (Reason: shortness of breath or wheezing) Nuedexta 20-10 mg capsule 1 cap PO DAILY guaifenesin [Mucus Relief ER] 600 mg tablet extended release 12hr 600 mg PO BID ondansetron 8 mg tablet,disintegrating 8 mg PO Q8H PRN (Reason: nausea and vomiting) olopatadine 0.1 % drops 1 drp ophthalmic (eye) BID lidocaine 5 % adhesive patch,medicated 2 patch transdermal DAILY triamcinolone acetonide 55 mcg aerosol,spray 2 spray INTRANASAL DAILY fexofenadine-pseudoephedrine [24HR Allergy-Congestion Relief] 180-240 mg tablet extended release 24 hr 1 tab PO DAILY Primary Care Provider: Shirlene George Referrals: Lamont Sanford MD [Med Staff - Active Staff] - 1-2 Weeks Shirlene George MD [Primary Care Provider] - Activity Restrictions/Additional Instructions: Your CT scan shows no acute process. Urine slight hematuria. Labs are stable. Use Tylenol 1 g every 6 hours as needed. Follow-up with urology for outpatient evaluation. Disposition Disposition: Home, Self Care Discharge Date/Time: 05/16/23 21:00
[2023-05-16 17:38] LABS: Absolute Lymphocyte Count 3.64 X10^3/uL (0.83-4.51); Absolute Neutrophil Count 6.2 X10^3/uL (2.0-7.7); Basophil# 0.04 X10^3/uL; Basophil% 0.4 % (0-1); Eosinophil# 0.18 X10^3/uL; Eosinophils% 1.7 % (0-5); Hematocrit 42.2 % (37-47); Hemoglobin 13.5 g/dL (12.0-15.0); Lymphocyte # 3.64 X10^3/ul (0.83-4.51); Mean Corpuscular Hgb 26.7 pg (27.0-32.0); Mean Corpuscular Volume 83.4 fL (81-99); Mean Platelet Vol. 9.2 fl (6.2-12.0); Monocyte# 0.61 X10^3/uL; Monocyte% 5.7 % (0-10); NRBC Flagged by Analyzer 0 % (0-5); Neutrophil # 6.21 X10^3/uL (2.7-7.7); Platelet Count 395 K/mm3 (150-450); RBC Distribution Width CV 13.6 % (11.6-14.6); RBC Distribution Width SD 41.4 fl (35.1-43.9); Red Blood Count 5.06 M/mm3 (4.2-5.4); White Blood Count 10.7 K/mm3 (4.4-11.0)
[2023-05-16] MEDS: 0.9% Normal Saline (1000mL) 1,000 ML 1000 ML IV (17:49)
[2023-05-16] MEDS: Ondansetron 4 MG/2 ML Vial IV (17:50)
[2023-05-16] MEDS: HYDROmorphone 1 MG/ML Syringe 0.5 MG IV (17:50)
[2023-05-16 17:52] LABS: Anion Gap 8 (5-15); BUN 14 mg/dL (7-18); BUN/Creat Ratio 17.9 RATIO (10-20); Calcium,Total 9.2 mg/dL (8.5-10.1); Chloride 107 mmol/L (98-107); Creatinine, Serum 0.78 mg/dL (0.55-1.02); EST Glomerular Filtration Rate 87 mL/min (>60); Est Glom Filt Rate - Afr Amer 105 mL/min (>60); Estimated Creatinine Clearance 117.87 ml/min; Glucose 95 mg/dL (74-106); Potassium 4.2 mmol/L (3.5-5.1); Sodium Level 139 mmol/L (136-145)
[2023-05-16 17:58] LABS: Internal QC Validated? YES +Cl - CLEAR BKGD; Pregnancy, Serum, hCG Quali. NEGATIVE Negative
[2023-05-16 18:31] VITALS: BP 112/53; PULSE 86; RESP 16; TEMP 36.3; O2SAT 97
[2023-05-16 19:40] LABS: Mucous, Urine 0 SEEN /hpf (<or=2+); Red Blood Cells-Urine 0 SEEN /hpf (0-5); White Blood Cells 0 SEEN /hpf (0-5)
[2023-05-16] MEDS: Ketorolac 30 MG/ML Syringe IM (19:49)
[2023-05-16 20:00] VITALS: BP 112/53; PULSE 86; RESP 16; TEMP 36.3; O2SAT 97
[2023-05-16 20:02] LABS: Color, Urine Yellow (Yellow); Glucose, Dipstick Normal (Normal); Leukocyte Esterase-Dipstick 25 /ul (Negative); Nitrite-Dipstick Negative (Negative); Occult Blood-Urine 10 /ul (Negative); Protein-Dipstick 15 mg/dl (Negative); Specific Gravity, Urine 1.025 (1.002-1.030); Urine Clarity Sl. Cloudy (Clear); Urine Urobilinogen Normal (Normal)
[2023-05-16 20:17] LABS: Ketone-Dipstick 150 mg/dl (Negative); Urine Bilirubin Dipstick 1 mg/dL (Negative)
[2023-05-16 20:21] LABS: Squamous Epithelial Cells - UA 5-10 SEEN /hpf (5-10)
[2023-05-16 20:22] LABS: Bacteria 1+ /hpf (None Seen)
[2023-05-16 20:55] VITALS: BP 112/53; PULSE 86; RESP 16; TEMP 36.3; O2SAT 97
== END 2023-05-16 21:00 | disposition home or self-care (01) ==
PROVIDERS: Emergency Provider Emergency Medicine; PCP Internal Medicine; Visit Provider Emergency Medicine
DX: R10.9 Unspecified abdominal pain (principal); E11.9 Type 2 diabetes mellitus without complications; R31.9 Hematuria, unspecified; Z98.84 Bariatric surgery status; Z79.84 Long term (current) use of oral hypoglycemic drugs; Z79.85 Long-term (current) use of injectable non-insulin antidiabetic drugs
CPT/HCPCS: 74176; 80048; 81001; 84703; 85025; 87086; 87088; 87186; 96361; 96372; 96374; 96375; 99283; J7030; A4216; J2405

== ENCOUNTER → 2023-05-22 | Outpatient (CLI) | payer MEDICARE, MEDICAID, SELFPAY ==
--- NOTE | 2023-05-22 12:32 | MRI_ITS ---
Exam: MR Spine Cervical W/O Contrast Comparison: CTA neck August 19, 2018, there was mild reversal of the usual lordotic curvature. History: pain FINDINGS: There is similar mild reversal of the usual lordotic curvature centered at C4. Normal disc height and signal intensity with annular disc bulge and minimal uncovertebral and posterior bulging slightly protruding disc margins at C4-5 and to lesser extent at C5-6. Uncovertebral osteophytes and associated disc mildly narrow the proximal neural foramen at C4-5. Mild flattening of the ventral cord at C4-5 but there is a thin rim of CSF in the posterior thecal sac. AP diameter of the canal is estimated to be 7.5 mm at C4-5 and 8 mm at C5-6, mildly stenotic. No bone marrow edema. No suspicious epidural fluid collection. MRI/Spine Cervical (Routine) IMPRESSION: Mild degenerative changes and reversal of the usual lordotic curvature. Mild C4-C6 thecal sac narrowing without nelly cord impingement. Electronically Signed: Nereida Baum MD at 7:24 EDT ,
== END | disposition home or self-care (01) ==
LOC: MRI 12:29
PROVIDERS: PCP Internal Medicine; Referring Provider Orthopaedic Surgery; Visit Provider Orthopaedic Surgery
DX: M54.12 Radiculopathy, cervical region (principal)
CPT/HCPCS: 72141

== ENCOUNTER 2023-06-02 19:13 | Emergency (ER) | payer MEDICARE, MEDICAID, SELFPAY ==
[2023-06-02 19:14] VITALS: BP 139/81; PULSE 100; RESP 18; TEMP 36.6; O2SAT 100; BMI 29.9
--- NOTE | 2023-06-02 19:32 | CT_ITS ---
STUDY: CT ABDOMEN AND PELVIS WITH CONTRAST - URINARY TRACT REASON FOR EXAM: Female, 42 years old. upper abdominal pain RADIATION DOSAGE (If Supplied By Facility): CTDIvol = ( 14.02 ) mGy, DLP = ( 1154.30 ) mGycm TECHNIQUE: Oral and amp; IV Gastrografin and amp; 75mL [id number]-[id number] was administered. Transaxial images were obtained from the dome of the diaphragm to the symphysis pubis in the arterial, nephrographic and excretory phases. Multiplanar coronal and sagittal images were reformatted. Individualized Dose Optimization Techniques Were Used For This CT. COMPARISON: No relevant prior comparison study available FINDINGS: The visualized lung bases are unremarkable. The visualized portions of the heart are within normal limits. Normal liver. There are surgical clips in the gallbladder fossa consistent with a prior cholecystectomy. Normal spleen. Normal pancreas. Normal bilateral adrenal glands. Gastric sleeve. Normal small intestine. Normal colon. The appendix is visualized and appears normal. Normal abdominal aorta. No retroperitoneal adenopathy. Normal right kidney. Normal left kidney. Normal urinary bladder. There is 2.7 cm cyst in the left ovary. Normal abdominal wall. Normal osseous structures. CT/Abdomen/Pelvis WITH Contrast IMPRESSION: There is 2.7 cm cyst in the left ovary. Electronically Signed: Samira Alvarado MD at 23:09 EDT ,
--- NOTE | 2023-06-02 19:41 | EDS_ITS ---
HPI <KRISTEN Carballo - Last Filed: 06/02/23 20:55> History of Present Illness Chief Complaint: Abd Pain Narrative Narrative: 42-year-old female with past medical history of DM2, gastric bypass in 2018, cholecystectomy presents with upper abdominal pain. Around 7 PM she ate [place] corn soup at a restaurant and 10 minutes later developed sharp epigastric and left upper quadrant abdominal pain. She has nausea but no vomiting. She took Zofran. She has had normal bladder and bowel movements recently. She states a couple weeks ago she had a different type of abdominal pain and had blood work with her primary care doctor told her she had pancreatitis. Her urine culture also returned positive for UTI. She took methylprednisone and Macrobid which she finished about a week ago. She does not smoke. She has not had alcohol in the last year. PFS <KRISTEN Carballo - Last Filed: 06/02/23 20:55> [facility] Medical History (Updated 06/02/23 @ 20:55 by KRISTEN Carballo) Alcohol use Anemia Anxiety Arthritis Asthma Autism Back pain Cardiology follow-up encounter Chronic cough Chronic pelvic pain in female Deep dyspareunia Depression Diabetes Fatty liver Gastric reflux History of echocardiogram History of IBS History of pain when walking History of stress test HTN (hypertension) Hypothyroidism Injury of back Injury of head and neck Loss of consciousness Migraine headache Non-smoker Pancreatitis PCOS (polycystic ovarian syndrome) POTS (postural orthostatic tachycardia syndrome) Shortness of breath on exertion Sleep apnea Thyroid disease Type 2 diabetes mellitus Wears contact lenses Wears glasses Yeast infection Home Medications enalapril maleate 2.5 mg tablet 2.5 mg PO QHS protect kidneys 06/07/13 [History Last Taken 06/27/21] metformin 500 mg tablet,extended release 24 hr 1,000 mg PO BID diabetes 06/07/13 [History Last Taken 06/27/21] pantoprazole 40 mg tablet,delayed release 40 mg PO DAILY PRN REFLUX 02/05/16 [History Last Taken 06/27/21] lorazepam 1 mg tablet 1 mg PO BID PRN PRN Anxiety 03/06/19 [History Last Taken 06/27/21] semaglutide 0.25 mg or 0.5 mg (2 mg/1.5 mL) subcutaneous pen injector (Ozempic) 0.25 mg subcut QWEEK 12/16/20 [History Last Taken 06/27/21] ubrogepant 100 mg tablet (Ubrelvy) 100 mg PO PRN PRN MIGRAINES 05/10/21 [History Last Taken 06/27/21] fluvoxamine 50 mg tablet 50 mg PO DAILY #30 tabs 12/14/22 [Rx Last Taken Unknown] dextromethorphan 20 mg-quinidine 10 mg capsule (Nuedexta) 1 cap PO DAILY 05/16/23 [History Last Taken Unknown] fexofenadine-pseudoephedrine ER 180 mg-240 mg tablet,ext.release 24 hr (24HR Allergy-Congestion Relief) 1 tab PO DAILY 05/16/23 [History Last Taken Unknown] guaifenesin 600 mg tablet, extended release 12 hr (Mucus Relief ER) 600 mg PO BID 05/16/23 [History Last Taken Unknown] levalbuterol tartrate 45 mcg/actuation aerosol inhaler 2 puff inhalation Q4H PRN shortness of breath or wheezing 05/16/23 [History Last Taken Unknown] lidocaine 5 % topical patch 2 patch transdermal DAILY 05/16/23 [History Last Taken Unknown] olopatadine 0.1 % eye drops 1 drp ophthalmic (eye) BID 05/16/23 [History Last Taken Unknown] ondansetron 8 mg disintegrating tablet 8 mg PO Q8H PRN nausea and vomiting 05/16/23 [History Last Taken Unknown] triamcinolone acetonide 55 mcg nasal spray aerosol 2 spray intranasal DAILY 05/16/23 [History Last Taken Unknown] hydrocodone-acetaminophen 5-325mg 5mg-325mg 1 tab PO Q4 PRN pain 05/30/23 [History Last Taken Unknown] Allergy/AdvReac Type Severity Reaction Status Date / Time Corticosteroids Allergy Intermediate Other Verified 06/02/23 19:16 (Glucocorticoids) atorvastatin [From Lipitor] Allergy Rash Verified 06/02/23 19:16 ciprofloxacin [From Cipro] Allergy Anaphylaxis Verified 06/02/23 19:16 ciprofloxacin HCl Allergy Anaphylaxis Verified 06/02/23 19:16 [From Cipro] peanut Allergy Other Verified 06/02/23 19:16 strawberry Allergy Hives Verified 06/02/23 19:16 Sulfa (Sulfonamide Allergy Shortness Verified 06/02/23 19:16 Antibiotics) of breath tomato Allergy Food Verified 06/02/23 19:16 Allergy tramadol Allergy Hives Verified 06/02/23 19:16 wheat Allergy Food Verified 06/02/23 19:16 Allergy adhesive AdvReac Other Verified 06/02/23 19:16 albuterol AdvReac Other Verified 06/02/23 19:16 aspirin AdvReac Nausea/Vom/ Verified 06/02/23 19:16 Diarrhea diphenhydramine AdvReac Shortness Verified 06/02/23 19:16 [From Benadryl] of breath duloxetine [From Cymbalta] AdvReac Other Verified 06/02/23 19:16 morphine AdvReac Shortness Verified 06/02/23 19:16 of breath nickel AdvReac Rash Verified 06/02/23 19:16 nifedipine AdvReac Chest Verified 06/02/23 19:16 tightness Opioids - Morphine Analogues AdvReac Inflammation Verified 06/02/23 19:16 of vein sumatriptan [From Imitrex] AdvReac Vomiting Verified 06/02/23 19:16 sumatriptan succinate AdvReac Vomiting Verified 06/02/23 19:16 [From Imitrex] topiramate [From Topamax] AdvReac Other Verified 06/02/23 19:16 venlafaxine [From Effexor] AdvReac Other Verified 06/02/23 19:16 Family History Grandmother Heart disease Diabetes Asthma Grandmother Diabetes PCOS (polycystic ovarian syndrome) Migraines Cataracts, bilateral Surgical History Bariatric surgery status Deviated septum H/O bilateral salpingectomy History of cholecystectomy History of nasal surgery Hx of eye surgery l breast scar tissue removal S/P laparoscopic assisted vaginal hysterectomy (LAVH) turbinate surgery' Social History household members: significant other number of children: 0 current occupational status: employed current occupation: [employer] history of recent travel: No sexually active: Yes Smoking Status: Never smoker alcohol intake: current alcohol intake frequency: a few times a month substance use type: marijuana diet: low carbohydrate and vegetarian what type of physical activity do you participate in: walking seatbelt use: always do you feel safe at home: Yes additional social history: boyfriend - Anshu Gaitan ROS <KRISTEN Carballo - Last Filed: 06/02/23 20:55> ROS ED ROS Narrative Constitutional: Negative for fever, chills, malaise. CVS: Negative for chest pain. Respiratory: Negative for shortness of breath, cough. GI: Positive for abdominal pain, nausea. Negative for vomiting, constipation, melena, hematochezia. : Negative for dysuria, hematuria or frequency. EXAM <KRISTEN Carballo Last Filed: 06/02/23 20:55> Physical Exam Narrative Exam Narrative: CONST: Patient sitting in no acute distress. EYES: Normal inspection. NECK: Normal inspection. RESP: No respiratory distress, CTAB. CVS: Regular rate and rhythm, no murmur, no gallop. ABD: Soft with epigastric and left upper quadrant tenderness, no guarding or rebound, nondistended, no hepatosplenomegaly. Back: Normal inspection, no CVA tenderness. SKIN: Color normal, no rash, warm, dry, intact. EXTREMITIES: Normal appearance, no pedal edema. NEURO: Alert and answering questions appropriately. PSYCH: Normal affect. Const Vital Signs: 06/02/23 19:14 06/02/23 21:13 Temperature 97.8 F Temperature Source Temporal Pulse Rate 100 881 H Respiratory Rate 18 6 L Blood Pressure 139/81 H 116/71 Blood Pressure Mean 100 86 Pulse Ox 100 98 Oxygen Delivery Method Room Air Room Air <Dr. Stephanie Mejia DO - Last Filed: 06/02/23 21:59> Physical Exam Const Vital Signs: 06/02/23 19:14 06/02/23 21:13 Temperature 97.8 F Temperature Source Temporal Pulse Rate 100 881 H Respiratory Rate 18 6 L Blood Pressure 139/81 H 116/71 Blood Pressure Mean 100 86 Pulse Ox 100 98 Oxygen Delivery Method Room Air Room Air MDM <KRISTEN Carballo Last Filed: 06/02/23 20:55> MDM MDM Narrative Medical decision making narrative: History gathered from: Patient and spouse Differential: GERD, PUD, pancreatitis, kidney stone, obstruction Patient had acute onset epigastric and left upper quadrant pain after eating [place] food. She appears uncomfortable but nontoxic and is afebrile with normal vital signs. She is tender in the epigastric and left upper quadrant with no peritoneal signs. Labs show white count of 16.4, normal LFTs and lipase of 94. CO2 slightly low at 18 but she was hyperventilating while IV was placed. Urinalysis has 3+ bacteria but it's contaminated with no other signs of infection and she has no urinary symptoms. CT scan with p.o. and IV contrast is pending. Patient seen and evaluated with SHAHZAD. I personally interviewed and examined the patient. I was involved in all aspects of patient's orders, interpretation of results, and treatment. Patient presents to the emergency department complaint of abdominal pain that started this evening after she ate some [place] food. She tells me she has had abdominal pain for about a month. She has been seen by the nurse practitioner that she sees and was diagnosed with pancreatitis because she had elevated enzymes. Patient's been eating a bland diet has been doing relatively well but has had pain most days over the last month. She does have history of gastric bypass surgery in 2018. She has had a cholecystectomy and hysterectomy but still has her ovaries. Today she was eating [place] soup when soon after developed left upper abdomen pain. She has got nausea. She has had no fevers. HEENT-PERRLA, EOMI, nontoxic-appearing Cardiovascular-regular rate and rhythm without murmur Lungs-clear to auscultation bilaterally without rales or wheezes. No tachypnea. Abdomen-tenderness palpation over the epigastric region in the left upper quadrant with some guarding. There is no rebound, rigidity, or peritoneal signs. No mass palpated. Extremities-intact x 4 without edema or cellulitic changes. Patient presents with abdominal pain with recent diagnosis of pancreatitis and recently treated for UTI. IV line will be established. She will be medicated with Dilaudid and Zofran. Basic labs will be ordered and a CT scan of the abdomen pelvis with IV and p.o. contrast will be ordered. Lab Data Labs: Laboratory Results - last 24 hr 06/02/23 06/02/23 19:46 19:54 WBC 16.4 H RBC 5.14 Hgb 13.8 Hct 42.1 MCV 81.9 MCH 26.8 L MCHC 32.8 RDW Std Deviation 41.5 RDW Coeff of Yair 14.0 Plt Count 392 MPV 9.4 Immature Gran % (Auto) 0.400 Neut % (Auto) 59.0 Lymph % (Auto) 30.7 [place] % (Auto) 7.1 Eos % (Auto) 2.4 Baso % (Auto) 0.4 Absolute Neuts (auto) 9.7 H Absolute Lymphs (auto) 5.05 H Nucleated RBC % 0 Differential Comment SCANNED Sodium 139 Potassium 4.4 Chloride 111 H Carbon Dioxide 18.0 L Anion Gap 10 BUN 20 H Creatinine 0.90 Estim Creat Clear Calc 100.31 Est GFR (MDRD) Af Amer 89 Est GFR (MDRD) Non-Af 74 BUN/Creatinine Ratio 22.2 H Glucose 123 H Calcium 8.6 Total Bilirubin 0.30 AST 14 L ALT 18 Alkaline Phosphatase 52 Total Protein 7.0 Albumin 3.7 Globulin 3.3 Albumin/Globulin Ratio 1.1 Lipase 94 H Urine Color Yellow Urine Clarity Cloudy Urine pH 5.0 Ur Specific [place] 1.020 Urine Protein 15 H Urine Glucose (UA) Normal Urine Ketones 15 H Urine Occult Blood 10 H Urine Nitrite Negative Urine Bilirubin 1 H Urine Urobilinogen 1 H Ur Leukocyte Esterase 25 H Urine RBC 0-5 SEEN Urine WBC 0-5 SEEN Ur Squamous Epith Cells 5-10 SEEN Urine Bacteria 3+ Urine Mucus 0 SEEN <Dr. Stephanie Mejia, DO - Last Filed: 06/02/23 21:59> [facility] MDM Narrative Medical decision making narrative: History gathered from: Patient and spouse Differential: GERD, PUD, pancreatitis, kidney stone, obstruction Patient had acute onset epigastric and left upper quadrant pain after eating [place] food. She appears uncomfortable but nontoxic and is afebrile with normal vital signs. She is tender in the epigastric and left upper quadrant with no peritoneal signs. Labs show white count of 16.4, normal LFTs and lipase of 94. CO2 slightly low at 18 but she was hyperventilating while IV was placed. Urinalysis has 3+ bacteria but it's contaminated with no other signs of infection and she has no urinary symptoms. CT scan with p.o. and IV contrast is pending. Patient seen and evaluated with SHAHZAD. I personally interviewed and examined the patient. I was involved in all aspects of patient's orders, interpretation of results, and treatment. Patient presents to the emergency department complaint of abdominal pain that started this evening after she ate some [place] food. She tells me she has had abdominal pain for about a month. She has been seen by the nurse practitioner that she sees and was diagnosed with pancreatitis because she had elevated enzymes. Patient's been eating a bland diet has been doing relatively well but has had pain most days over the last month. She does have history of gastric bypass surgery in 2018. She has had a cholecystectomy and hysterectomy but still has her ovaries. Today she was eating [place] soup when soon after developed left upper abdomen pain. She has got nausea. She has had no fevers. HEENT-PERRLA, EOMI, nontoxic-appearing Cardiovascular-regular rate and rhythm without murmur Lungs-clear to auscultation bilaterally without rales or wheezes. No tachypnea. Abdomen-tenderness palpation over the epigastric region in the left upper quadrant with some guarding. There is no rebound, rigidity, or peritoneal signs. No mass palpated. Extremities-intact x 4 without edema or cellulitic changes. Patient presents with abdominal pain with recent diagnosis of pancreatitis and recently treated for UTI. IV line will be established. She will be medicated with Dilaudid and Zofran. Basic labs will be ordered and a CT scan of the abdomen pelvis with IV and p.o. contrast will be ordered. Patient does have an elevated WBC count of 16.4 with hemoglobin 13.8 and platelet count of 392. Chemistries were unremarkable. LFTs were normal. Lipase was minimally elevated at 94. Urinalysis unremarkable. CT scan of the abdomen pelvis ordered and results pending. Care of patient turned over to evening physician awaiting CT results and final disposition Lab Data Labs: Laboratory Results - last 24 hr 06/02/23 06/02/23 19:46 19:54 WBC 16.4 H RBC 5.14 Hgb 13.8 Hct 42.1 MCV 81.9 MCH 26.8 L MCHC 32.8 RDW Std Deviation 41.5 RDW Coeff of Yair 14.0 Plt Count 392 MPV 9.4 Immature Gran % (Auto) 0.400 Neut % (Auto) 59.0 Lymph % (Auto) 30.7 [place] % (Auto) 7.1 Eos % (Auto) 2.4 Baso % (Auto) 0.4 Absolute Neuts (auto) 9.7 H Absolute Lymphs (auto) 5.05 H Nucleated RBC % 0 Differential Comment SCANNED Sodium 139 Potassium 4.4 Chloride 111 H Carbon Dioxide 18.0 L Anion Gap 10 BUN 20 H Creatinine 0.90 Estim Creat Clear Calc 100.31 Est GFR (MDRD) Af Amer 89 Est GFR (MDRD) Non-Af 74 BUN/Creatinine Ratio 22.2 H Glucose 123 H Calcium 8.6 Total Bilirubin 0.30 AST 14 L ALT 18 Alkaline Phosphatase 52 Total Protein 7.0 Albumin 3.7 Globulin 3.3 Albumin/Globulin Ratio 1.1 Lipase 94 H Urine Color Yellow Urine Clarity Cloudy Urine pH 5.0 Ur Specific [place] 1.020 Urine Protein 15 H Urine Glucose (UA) Normal Urine Ketones 15 H Urine Occult Blood 10 H Urine Nitrite Negative Urine Bilirubin 1 H Urine Urobilinogen 1 H Ur Leukocyte Esterase 25 H Urine RBC 0-5 SEEN Urine WBC 0-5 SEEN Ur Squamous Epith Cells 5-10 SEEN Urine Bacteria 3+ Urine Mucus 0 SEEN Discharge Plan Triage Chief Complaint: Abd Pain ED Midlevel Provider: Amber Dsouza ED Provider: Stephanie Mejia Dx/Rx/DC Orders Clinical Impression: Abdominal pain Prescriptions: No Action Ozempic 0.25 mg or 0.5 mg(2 mg/1.5 mL) pen injector 0.25 mg subcut QWEEK Hold Instructions: Ordered fluvoxamine 50 mg tablet 50 mg PO DAILY Qty: 30 12RF hydrocodone-acetaminophen 5-325 mg tablet 1 tab PO Q4 PRN (Reason: pain) metformin 500 MG tablet 1,000 mg PO BID enalapril maleate 2.5 MG tablet 2.5 mg PO QHS pantoprazole 40 MG tablet 40 mg PO DAILY PRN (Reason: REFLUX) lorazepam 1 MG tablet 1 mg PO BID PRN PRN (Reason: Anxiety) Ubrelvy 100 mg Tablet 100 mg PO PRN PRN (Reason: MIGRAINES) levalbuterol tartrate 45 mcg/actuation HFA aerosol inhaler 2 puff inhalation Q4H PRN (Reason: shortness of breath or wheezing) Nuedexta 20-10 mg capsule 1 cap PO DAILY guaifenesin [Mucus Relief ER] 600 mg tablet extended release 12hr 600 mg PO BID ondansetron 8 mg tablet,disintegrating 8 mg PO Q8H PRN (Reason: nausea and vomiting) olopatadine 0.1 % drops 1 drp ophthalmic (eye) BID lidocaine 5 % adhesive patch,medicated 2 patch transdermal DAILY triamcinolone acetonide 55 mcg aerosol,spray 2 spray INTRANASAL DAILY fexofenadine-pseudoephedrine [24HR Allergy-Congestion Relief] 180-240 mg tablet extended release 24 hr 1 tab PO DAILY Primary Care Provider: Shirlene George Referrals: Shirlene George MD [Primary Care Provider] -
[2023-06-02] MEDS: Ondansetron 4 MG/2 ML Vial IV (19:51)
[2023-06-02] MEDS: HYDROmorphone 1 MG/ML Syringe IV (19:51)
[2023-06-02] MEDS: 0.9% Normal Saline (1000mL) 1,000 ML 999 ML IV (19:53)
[2023-06-02 20:03] LABS: Mucous, Urine 0 SEEN /hpf (<or=2+)
[2023-06-02 20:06] LABS: Color, Urine Yellow (Yellow); Glucose, Dipstick Normal (Normal); Ketone-Dipstick 15 mg/dl (Negative); Leukocyte Esterase-Dipstick 25 /ul (Negative); Nitrite-Dipstick Negative (Negative); Occult Blood-Urine 10 /ul (Negative); Protein-Dipstick 15 mg/dl (Negative); Urine Clarity Cloudy (Clear); Urine Urobilinogen 1 mg/dl (Normal)
[2023-06-02 20:06] LABS: Absolute Lymphocyte Count 5.05 X10^3/uL (0.83-4.51); Absolute Neutrophil Count 9.7 X10^3/uL (2.0-7.7); Basophil# 0.07 X10^3/uL; Basophil% 0.4 % (0-1); Eosinophils% 2.4 % (0-5); Hematocrit 42.1 % (37-47); Hemoglobin 13.8 g/dL (12.0-15.0); Lymphocyte # 5.05 X10^3/ul (0.83-4.51); Lymphocyte % 30.7 % (19-41); Mean Corp Hgb Conc 32.8 g/dL (32-36); Mean Corpuscular Hgb 26.8 pg (27.0-32.0); Mean Corpuscular Volume 81.9 fL (81-99); Mean Platelet Vol. 9.4 fl (6.2-12.0); Monocyte# 1.17 X10^3/uL; Monocyte% 7.1 % (0-10); NRBC Flagged by Analyzer 0 % (0-5); Neutrophil # 9.68 X10^3/uL (2.7-7.7); POSITIVE DIFFERENTIAL YES; Platelet Count 392 K/mm3 (150-450); RBC Distribution Width SD 41.5 fl (35.1-43.9); Red Blood Count 5.14 M/mm3 (4.2-5.4); White Blood Count 16.4 K/mm3 (4.4-11.0)
[2023-06-02 20:08] LABS: Differential Indicated SCAN CRITERIA MET
[2023-06-02 20:10] LABS: Urine Bilirubin Dipstick 1 mg/dL (Negative)
[2023-06-02 20:13] LABS: Bacteria 3+ /hpf (None Seen)
[2023-06-02 20:15] LABS: Red Blood Cells-Urine 0-5 SEEN /hpf (0-5); Squamous Epithelial Cells - UA 5-10 SEEN /hpf (5-10); White Blood Cells 0-5 SEEN /hpf (0-5)
[2023-06-02 20:30] LABS: ALB/GLOB Ratio 1.1 RATIO (0.9-2.4); AST(SGOT) 14 U/L (15-37); Alanine Aminotransfer ALT/SGPT 18 U/L (13-56); Albumin, Serum 3.7 g/dL (3.2-5.0); Alkaline Phosphatase 52 U/L (45-117); Anion Gap 10 (5-15); BUN 20 mg/dL (7-18); BUN/Creat Ratio 22.2 RATIO (10-20); Calcium,Total 8.6 mg/dL (8.5-10.1); Chloride 111 mmol/L (98-107); EST Glomerular Filtration Rate 74 mL/min (>60); Est Glom Filt Rate - Afr Amer 89 mL/min (>60); Estimated Creatinine Clearance 100.31 ml/min; Globulin 3.3 g/dL (2.2-4.2); Glucose 123 mg/dL (74-106); Lipase 94 U/L (13-75); Potassium 4.4 mmol/L (3.5-5.1); Sodium Level 139 mmol/L (136-145)
[2023-06-02 20:33] LABS: Differential Comment SCANNED
[2023-06-02 21:13] VITALS: BP 116/71; PULSE 881; RESP 6; O2SAT 98
[2023-06-02 23:00] VITALS: BP 133/79; PULSE 78; RESP 16; O2SAT 99
[2023-06-02] MEDS: Dicyclomine 10 MG Capsule 20 MG PO (23:36)
[2023-06-02] MEDS: Mag Hydrox/Al Hydrox/Simeth 30 ML UDC 15 ML PO (23:36)
[2023-06-03] MEDS: Metoclopramide 10 MG/2 ML Vial 5 MG IV (00:29)
[2023-06-03 01:00] VITALS: BP 111/68; PULSE 70; RESP 16; O2SAT 99
[2023-06-03] MEDS: HYDROmorphone 1 MG/ML Syringe IV (01:41)
[2023-06-03 01:43] VITALS: BP 120/78; PULSE 69; RESP 16; TEMP 36.9; O2SAT 98
== END 2023-06-03 02:04 | disposition home or self-care (01) ==
PROVIDERS: Physician Assistant; Emergency Provider Emergency Medicine; PCP Internal Medicine; Visit Provider Emergency Medicine
DX: R10.9 Unspecified abdominal pain (principal); E11.9 Type 2 diabetes mellitus without complications; F12.90 Cannabis use, unspecified, uncomplicated; Z79.84 Long term (current) use of oral hypoglycemic drugs; Z79.899 Other long term (current) drug therapy
CPT/HCPCS: 74177; 80053; 81001; 83690; 85025; 96361; 96374; 96375; 96376; 99283; J7030; Q9967; A4216; J2405

== ENCOUNTER 2023-09-22 12:22 | Emergency (ER) | payer MEDICARE, MEDICAID, SELFPAY ==
[2023-09-22 12:23] VITALS: BP 110/77; PULSE 88; RESP 16; TEMP 37.2; O2SAT 98
--- NOTE | 2023-09-22 12:43 | RAD_ITS ---
EXAM: XR CHEST, 1 VIEW CLINICAL INDICATION: Port-A-Cath placement. TECHNIQUE: Frontal view of the chest. COMPARISON: 11/01/2020. FINDINGS: LUNGS AND PLEURAL SPACES: Unremarkable. No suspicious infiltrates, consolidation or edema. No pneumothorax. No pleural effusion. HEART: Unremarkable. Cardiac silhouette not enlarged. MEDIASTINUM: Central airways and mediastinal contour are unremarkable. BONES/JOINTS: Unremarkable. No acute fracture. SOFT TISSUES: Unremarkable. TUBES, LINES AND DEVICES: Right IJ approach [id number] tip is in the mid SVC. RAD/Chest 1 View (Portable) IMPRESSION: No pneumothorax or acute cardiopulmonary pathology following successful right IJ approach [id number] placement, tip is in the mid SVC. Electronically Signed: Ward Mendoza MD at 14:20 EDT ,
--- NOTE | 2023-09-22 12:43 | EX.ED.DYSGE1 ---
HPI <SUKHI Wong - Last Filed: 09/22/23 14:55> History of Present Illness Chief Complaint: Other, Pain/Inj Narrative Narrative: Patient is a 42-year-old female with history of chronic pain connective tissue disease, history of gastric sleeve, type 2 diabetes who presents to the emergency department for complaints of weakness secondary to not eating and drinking, as well as some pain around her port site of her right chest. The port was placed in [facility] to the right chest, she states it has been hurting recently. She had to get this because she does get infusions, this is secondary to her decreased appetite as well as connective tissue disease. She denies any fever chills nausea or vomiting. PFS <SUKHI Wong - Last Filed: 09/22/23 14:55> [facility] Medical History (Updated 09/22/23 @ 14:55 by SUKHI Wong) Cervical dystonia Pancreatitis Cervical radiculopathy Autism Wears contact lenses Wears glasses Anxiety Depression Alcohol use Yeast infection Thyroid disease Diabetes Arthritis Fatty liver Anemia Back pain Injury of back Injury of head and neck Migraine headache Loss of consciousness History of IBS Gastric reflux Non-smoker Sleep apnea Shortness of breath on exertion Chronic cough History of pain when walking History of echocardiogram History of stress test Cardiology follow-up encounter Deep dyspareunia Chronic pelvic pain in female PCOS (polycystic ovarian syndrome) POTS (postural orthostatic tachycardia syndrome) HTN (hypertension) Hypothyroidism Asthma Type 2 diabetes mellitus Home Medications ?Medication ?Instructions ?Recorded ?Last Taken ?Type enalapril maleate 2.5 mg tablet 2.5 mg PO QHS protect kidneys 06/07/13 06/27/21 History metformin 500 mg tablet,extended 1,000 mg PO BID diabetes 06/07/13 06/27/21 History release 24 hr pantoprazole 40 mg tablet,delayed 40 mg PO DAILY PRN REFLUX 02/05/16 06/27/21 History release lorazepam 1 mg tablet 1 mg PO BID PRN PRN Anxiety 03/06/19 06/27/21 History semaglutide 0.25 mg or 0.5 mg (2 0.25 mg subcut QWEEK 12/16/20 06/27/21 History mg/1.5 mL) subcutaneous pen injector (Ozempic) ubrogepant 100 mg tablet (Ubrelvy) 100 mg PO PRN PRN MIGRAINES 05/10/21 06/27/21 History fluvoxamine 50 mg tablet 50 mg PO DAILY #30 tabs 12/14/22 Unknown Rx dextromethorphan 20 mg-quinidine 1 cap PO DAILY 05/16/23 Unknown History 10 mg capsule (Nuedexta) fexofenadine-pseudoephedrine ER 1 tab PO DAILY 05/16/23 Unknown History 180 mg-240 mg tablet,ext.release 24 hr (24HR Allergy-Congestion Relief) guaifenesin 600 mg tablet, 600 mg PO BID 05/16/23 Unknown History extended release 12 hr (Mucus Relief ER) levalbuterol tartrate 45 2 puff inhalation Q4H PRN 05/16/23 Unknown History mcg/actuation aerosol inhaler shortness of breath or wheezing lidocaine 5 % topical patch 2 patch transdermal DAILY 05/16/23 Unknown History olopatadine 0.1 % eye drops 1 drp ophthalmic (eye) BID 05/16/23 Unknown History triamcinolone acetonide 55 mcg 2 spray intranasal DAILY 05/16/23 Unknown History nasal spray aerosol hydrocodone-acetaminophen 5-325mg 1 tab PO Q4 PRN pain 05/30/23 Unknown History 5mg-325mg hyoscyamine sulfate 0.125 mg 0.125 mg PO Q6H PRN PRN dyspepsia 06/03/23 Unknown Rx disintegrating tablet #10 tabs ondansetron 8 mg disintegrating 8 mg PO Q8H PRN nausea and 06/03/23 Unknown Rx tablet vomiting #20 tabs sucralfate 100 mg/mL oral 10 ml PO BID 10 days #200 mL 06/03/23 Unknown Rx suspension Allergy/AdvReac Type Severity Reaction Status Date / Time Corticosteroids Allergy Intermediate Other Verified 09/22/23 12:24 (Glucocorticoids) atorvastatin (From Lipitor) Allergy Rash Verified 09/22/23 12:24 ciprofloxacin (From Cipro) Allergy Anaphylaxis Verified 09/22/23 12:24 ciprofloxacin HCl (From Allergy Anaphylaxis Verified 09/22/23 12:24 Cipro) peanut Allergy Other Verified 09/22/23 12:24 strawberry Allergy Hives Verified 09/22/23 12:24 Sulfa (Sulfonamide Allergy Shortness Verified 09/22/23 12:24 Antibiotics) of breath tomato Allergy Food Verified 09/22/23 12:24 Allergy tramadol Allergy Hives Verified 09/22/23 12:24 wheat Allergy Food Verified 09/22/23 12:24 Allergy adhesive AdvReac Other Verified 09/22/23 12:24 albuterol AdvReac Other Verified 09/22/23 12:24 aspirin AdvReac Nausea/Vom/ Verified 09/22/23 12:24 Diarrhea diphenhydramine (From AdvReac Shortness Verified 09/22/23 12:24 Benadryl) of breath duloxetine (From Cymbalta) AdvReac Other Verified 09/22/23 12:24 morphine AdvReac Shortness Verified 09/22/23 12:24 of breath nickel AdvReac Rash Verified 09/22/23 12:24 nifedipine AdvReac Chest Verified 09/22/23 12:24 tightness Opioids - Morphine Analogues AdvReac Inflammation Verified 09/22/23 12:24 of vein sumatriptan (From Imitrex) AdvReac Vomiting Verified 09/22/23 12:24 sumatriptan succinate (From AdvReac Vomiting Verified 09/22/23 12:24 Imitrex) topiramate (From Topamax) AdvReac Other Verified 09/22/23 12:24 venlafaxine (From Effexor) AdvReac Other Verified 09/22/23 12:24 Family History Grandmother Heart disease Diabetes Asthma Grandmother Diabetes PCOS (polycystic ovarian syndrome) Migraines Cataracts, bilateral Surgical History H/O bilateral salpingectomy S/P laparoscopic assisted vaginal hysterectomy (LAVH) Hx of eye surgery History of cholecystectomy Bariatric surgery status History of nasal surgery Deviated septum turbinate surgery' l breast scar tissue removal Social History household members: significant other number of children: 0 current occupational status: employed current occupation: [employer] history of recent travel: No sexually active: Yes Smoking Status: Never smoker alcohol intake: current alcohol intake frequency: a few times a month substance use type: marijuana diet: low carbohydrate and vegetarian what type of physical activity do you participate in: walking seatbelt use: always do you feel safe at home: Yes additional social history: boyfriend - Anshu Blubaugh ROS <SUKHI Wong - Last Filed: 09/22/23 14:55> ROS ED ROS Narrative Constitutional: Negative for fever, chills, weight loss. Positive for weakness Eyes: Negative for vision loss, vision change, double vision ENT: Negative for any sore throat, ear pain, congestion Cardiovascular: Negative for any chest pain, tightness, palpitations Respiratory: Negative for any cough, sputum production, hemoptysis, dyspnea, dyspnea on exertion, orthopnea Gastrointestinal: Negative for any abdominal pain, nausea, vomiting, diarrhea, constipation, blood in stool, blood in vomit. Positive for decreased oral intake : Negative for any urinary frequency, dysuria, retention, blood in urine Muscle skeletal: Negative for any neck pain, back pain Neurological: Negative for any headache, syncope, dizziness Skin: Negative for any rashes, itching, abrasions, lacerations. Positive for pain in the right anterior chest, right neck secondary to the port Psychiatric: Negative for any depression, anxiety, stress, suicidal ideation, homicidal ideation Hematologic: Negative for any excessive bruising, easy bleeding EXAM <SUKHI Wong - Last Filed: 09/22/23 14:55> Physical Exam Narrative Exam Narrative: Vital signs reviewed. Patient is tearful on my examination. HEET: Head normocephalic atraumatic, TMs clear bilaterally. Posterior pharynx is clear, dry mucous membranes. Nares clear bilaterally. Neck: Supple with no lymphadenopathy or tenderness. No signs of meningismus. Cardiac: Regular rate and rhythm no murmurs gallops or rubs, equal peripheral pulses bilaterally. Respiratory: Lungs clear to auscultation bilaterally. Positive for right-sided anterior chest wall tenderness around the incision site. The incision site of the port as well as to her anterior right side of her neck looks well-appearing. There is no erythema, no edema, no signs or symptoms of infection. There is no crepitus, no fluctuance noted. Well-appearing. Abdomen: Soft, nontender, nondistended. No abdominal bruit or pulsatile masses. No hepatosplenomegaly Extremities: No peripheral edema, no signs of gross trauma or deformity. Active full range of motion of all extremities. Neuro: Cranial nerves II through XII intact, no focal neurological deficits. Skin: Clean dry and intact with no rash, purpura, petechiae, vesicles or pustules. Backs/flank: No CVA tenderness, no midline spinal tenderness, no deformity. Psych: Normal mood and affect. No SI, HI or acute psychosis. Const Vital Signs: 09/22/23 12:23 09/22/23 12:35 09/22/23 14:34 Temperature 99 F Temperature Source Temporal Pulse Rate 88 82 Respiratory Rate 16 18 Respiratory Effort Normal Non-Labored Respiratory Pattern Normal Blood Pressure 110/77 121/90 H Blood Pressure Mean 88 100 Pulse Ox 98 92 Oxygen Delivery Method Room Air Room Air Positive well nourished, well developed and obese General Appearance ED: well developed Nutritional Appearance: obese <Ward Solorio MD - Last Filed: 09/26/23 08:34> Physical Exam Const Vital Signs: 09/22/23 12:23 09/22/23 12:35 09/22/23 14:34 Temperature 99 F Temperature Source Temporal Pulse Rate 88 82 Respiratory Rate 16 18 Respiratory Effort Normal Non-Labored Respiratory Pattern Normal Blood Pressure 110/77 121/90 H Blood Pressure Mean 88 100 Pulse Ox 98 92 Oxygen Delivery Method Room Air Room Air MDM <SUKHI Wong - Last Filed: 09/22/23 14:55> [facility] Lab Data Labs: Laboratory Results - last 24 hr 09/22/23 13:12 WBC 11.4 H RBC 4.54 Hgb 12.1 Hct 37.6 MCV 82.8 MCH 26.7 L MCHC 32.2 RDW Std Deviation 39.2 RDW Coeff of Yair 13.1 Plt Count 345 MPV 9.2 Immature Gran % (Auto) 0.200 Neut % (Auto) 61.9 Lymph % (Auto) 26.6 Lim[place] % (Auto) 6.8 Eos % (Auto) 3.7 Baso % (Auto) 0.8 Absolute Neuts (auto) 7.1 Absolute Lymphs (auto) 3.03 Nucleated RBC % 0 Sodium 142 Potassium 3.3 L Chloride 115 H Carbon Dioxide 21.0 Anion Gap 6 BUN 11 Creatinine 0.59 Estim Creat Clear Calc 153.35 Est GFR (MDRD) Af Amer 145 Est GFR (MDRD) Non-Af 120 BUN/Creatinine Ratio 18.7 Glucose 94 Calcium 7.8 L Radiography Diagnostic Testing: Clinical Impression(s) from Imaging Studies Chest X-Ray 09/22/23 12:43 IMPRESSION: No pneumothorax or acute cardiopulmonary pathology following successful right IJ approach Wxsk-Y-Garawwng placement, tip is in the mid SVC. Electronically Signed: Ward Mendoza MD at 14:20 EDT , Treatment and Re-Evaluation :: Differential diagnosis includes however is not limited to: Electrolyte abnormality, acute on chronic pain, cellulitis, port infection, Patient appears to be in no obvious respiratory distress vital signs are stable, nontoxic-appearing. Present to the emergency department for pain to the right side of her chest, decreased oral intake. Patient's port to the right anterior chest is looking well. There is no evidence suspect any infection. Patient will receive some basic laboratory values looking for any electrolyte abnormality, leukocytosis or anemia. IV fluids, Zofran as well as oral Tylenol be given. Patient will be reevaluated. Chest x-ray 1 view will be obtained all radiologic examinations were read, reviewed by the emergency department attending. From these reads, a plan of care will be put in place. Patient on reevaluation was unremarkable. Patient's laboratory values showed a slight leukocytosis with a white blood count of 11.4, patient has no anemia. Chemistries were unremarkable, potassium is 3.3, was replaced orally. Kidney function within normal limits. Chest x-ray obtained and this showed no pneumothorax or acute cardiopulmonary pathology. Successful right IJ approach port a catheter placement, tip is in the mid SVC which is normal. Patient at this time will be stable for discharge. Instructed return for any worsening symptoms. Will follow-up outpatient. <Ward Solorio MD - Last Filed: 09/26/23 08:34> [facility] Narrative Medical decision making narrative: Dr. Solorio: I have personally performed a face to face assessment of the patient and have reviewed the SHAHZAD Note. I performed a substantive portion of the visit including all aspects of the following. My schneider findings include: History is recent Mediport placement right chest wall. Complains of right-sided chest pain. Differential includes but not limited to pneumothorax versus pneumonia versus infected port site. History and physical does not support localized infection. Exam is afebrile. Vital signs noted. Regular rate and rhythm. Lungs clear to auscultation bilaterally. Abdomen soft nontender with normal active bowel sounds. Medical Decision Making: Patient complains of generalized weakness as well. Chest x-ray interpreted by myself independently shows no evidence of pneumothorax or pneumonia. I reviewed the radiology report which confirms my independent interpretation. She has slight leukocytosis in review of her laboratory work of 11.4 which I think is nonspecific, normal hemoglobin at 12.1. Potassium slightly low at 3.3. No overt dehydration. Patient feels comfortable with discharge after IV fluid bolus. Disposition is discharged in stable condition. Other additions or changes: [None] History & Record Review Discussion w/independent historian: Patient Lab Data Attestation: I reviewed the patient's lab results. Labs: Laboratory Results - last 24 hr 09/22/23 13:12 WBC 11.4 H RBC 4.54 Hgb 12.1 Hct 37.6 MCV 82.8 MCH 26.7 L MCHC 32.2 RDW Std Deviation 39.2 RDW Coeff of Yair 13.1 Plt Count 345 MPV 9.2 Immature Gran % (Auto) 0.200 Neut % (Auto) 61.9 Lymph % (Auto) 26.6 Lim[place] % (Auto) 6.8 Eos % (Auto) 3.7 Baso % (Auto) 0.8 Absolute Neuts (auto) 7.1 Absolute Lymphs (auto) 3.03 Nucleated RBC % 0 Sodium 142 Potassium 3.3 L Chloride 115 H Carbon Dioxide 21.0 Anion Gap 6 BUN 11 Creatinine 0.59 Estim Creat Clear Calc 153.35 Est GFR (MDRD) Af Amer 145 Est GFR (MDRD) Non-Af 120 BUN/Creatinine Ratio 18.7 Glucose 94 Calcium 7.8 L Radiography Chest X-Ray - ED: Read by ED Physician and Read by Radiologist Diagnostic Testing: Clinical Impression(s) from Imaging Studies Chest X-Ray 09/22/23 12:43 IMPRESSION: No pneumothorax or acute cardiopulmonary pathology following successful right IJ approach Zdli-Y-Ticavszl placement, tip is in the mid SVC. Electronically Signed: Ward Mendoza MD at 14:20 EDT , Discharge Plan Triage Chief Complaint: Other, Pain/Inj ED Midlevel Provider: David Chua ED Provider: Ward Solorio Dx/Rx/DC Orders Clinical Impression: Daily nausea, Weakness, Port-A-Cath in place Instructions: ED Weakness (Uncertain Cause) Prescriptions: No Action Ozempic 0.25 mg or 0.5 mg(2 mg/1.5 mL) pen injector 0.25 mg subcut QWEEK fluvoxamine 50 mg tablet 50 mg PO DAILY Qty: 30 12RF hydrocodone-acetaminophen 5-325 mg tablet 1 tab PO Q4 PRN (Reason: pain) metformin 500 MG tablet 1,000 mg PO BID enalapril maleate 2.5 MG tablet 2.5 mg PO QHS pantoprazole 40 MG tablet 40 mg PO DAILY PRN (Reason: REFLUX) lorazepam 1 MG tablet 1 mg PO BID PRN PRN (Reason: Anxiety) Ubrelvy 100 mg Tablet 100 mg PO PRN PRN (Reason: MIGRAINES) sucralfate 100 mg/mL suspension 10 ml PO BID 10 Days Qty: 200 0RF hyoscyamine sulfate 0.125 mg tablet,disintegrating 0.125 mg PO Q6H PRN PRN (Reason: dyspepsia) Qty: 10 0RF ondansetron 8 mg tablet,disintegrating 8 mg PO Q8H PRN (Reason: nausea and vomiting) Qty: 20 0RF levalbuterol tartrate 45 mcg/actuation HFA aerosol inhaler 2 puff inhalation Q4H PRN (Reason: shortness of breath or wheezing) Nuedexta 20-10 mg capsule 1 cap PO DAILY guaifenesin [Mucus Relief ER] 600 mg tablet extended release 12hr 600 mg PO BID olopatadine 0.1 % drops 1 drp ophthalmic (eye) BID lidocaine 5 % adhesive patch,medicated 2 patch transdermal DAILY triamcinolone acetonide 55 mcg aerosol,spray 2 spray INTRANASAL DAILY fexofenadine-pseudoephedrine [24HR Allergy-Congestion Relief] 180-240 mg tablet extended release 24 hr 1 tab PO DAILY Primary Care Provider: Shirlene George Referrals: Shirlene George MD [Primary Care Provider] - Activity Restrictions/Additional Instructions: Please follow-up outpatient. Return for any worsening symptoms. Print Language: Arabic Disposition Disposition: Home, Self Care Discharge Date/Time: 09/22/23 14:59
[2023-09-22] MEDS: Acetaminophen 500 MG Tablet 1000 MG PO (12:47)
[2023-09-22] MEDS: Ondansetron 4 MG/2 ML Vial IV (13:04)
[2023-09-22] MEDS: 0.9% Normal Saline (1000mL) 1,000 ML 999 ML IV (13:04)
[2023-09-22 13:36] LABS: Anion Gap 6 (5-15); BUN 11 mg/dL (7-18); BUN/Creat Ratio 18.7 RATIO (10-20); Calcium,Total 7.8 mg/dL (8.5-10.1); Chloride 115 mmol/L (98-107); Creatinine, Serum 0.59 mg/dL (0.55-1.02); EST Glomerular Filtration Rate 120 mL/min (>60); Est Glom Filt Rate - Afr Amer 145 mL/min (>60); Estimated Creatinine Clearance 153.35 ml/min; Glucose 94 mg/dL (74-106); Potassium 3.3 mmol/L (3.5-5.1); Sodium Level 142 mmol/L (136-145)
[2023-09-22 14:18] LABS: Absolute Lymphocyte Count 3.03 X10^3/uL (0.83-4.51); Absolute Neutrophil Count 7.1 X10^3/uL (2.0-7.7); Basophil# 0.09 X10^3/uL; Basophil% 0.8 % (0-1); Eosinophil# 0.42 X10^3/uL; Eosinophils% 3.7 % (0-5); Hematocrit 37.6 % (37-47); Hemoglobin 12.1 g/dL (12.0-15.0); Lymphocyte # 3.03 X10^3/ul (0.83-4.51); Lymphocyte % 26.6 % (19-41); Mean Corp Hgb Conc 32.2 g/dL (32-36); Mean Corpuscular Hgb 26.7 pg (27.0-32.0); Mean Corpuscular Volume 82.8 fL (81-99); Mean Platelet Vol. 9.2 fl (6.2-12.0); Monocyte# 0.77 X10^3/uL; Monocyte% 6.8 % (0-10); NRBC Flagged by Analyzer 0 % (0-5); Neutrophil # 7.06 X10^3/uL (2.7-7.7); Neutrophil % 61.9 % (47-70); Platelet Count 345 K/mm3 (150-450); RBC Distribution Width CV 13.1 % (11.6-14.6); RBC Distribution Width SD 39.2 fl (35.1-43.9); Red Blood Count 4.54 M/mm3 (4.2-5.4); White Blood Count 11.4 K/mm3 (4.4-11.0)
[2023-09-22] MEDS: Potassium Chloride Oral Tablet 20 MEQ 40 MEQ PO (14:29)
[2023-09-22 14:34] VITALS: BP 121/90; PULSE 82; RESP 18; O2SAT 92
[2023-09-22 14:57] VITALS: BP 121/90; PULSE 82; RESP 18; TEMP 36.6; O2SAT 92
== END 2023-09-22 14:59 | disposition home or self-care (01) ==
PROVIDERS: Nurse Practitioner; Emergency Provider Emergency Medicine; PCP Internal Medicine; Visit Provider Emergency Medicine
DX: R53.1 Weakness (principal); E11.9 Type 2 diabetes mellitus without complications; I10 Essential (primary) hypertension; R11.0 Nausea; Z95.828 Presence of other vascular implants and grafts; Z79.84 Long term (current) use of oral hypoglycemic drugs; Z79.899 Other long term (current) drug therapy
CPT/HCPCS: 96361; 36591; 71045; 80048; 85025; 96374; 99284; J7030; A4216; J2405

== ENCOUNTER 2023-12-28 14:22 | Emergency (ER) | payer MEDICARE, MEDICAID, SELFPAY ==
[2023-12-28 14:23] VITALS: BP 133/107; PULSE 92; RESP 18; TEMP 36.6; O2SAT 98; BMI 28.8
[2023-12-28 15:22] VITALS: PULSE 79; RESP 16; O2SAT 97
--- NOTE | 2023-12-28 15:55 | EKG12_ITS ---
Test Reason : Blood Pressure : */* mmHG Vent. Rate : 91 BPM Atrial Rate : 91 BPM P-R Int : 144 ms QRS Dur : 64 ms QT Int : 354 ms P-R-T Axes : 80 50 65 degrees QTcB Int : 435 ms Normal sinus rhythm Normal ECG Confirmed by NIKKI STONE, MIKE ([id number]), editorial clerk RENETTA GODOY ([id number]) on 12/31/2023 9:38:13 AM Referred By: Confirmed By: MIKE JORDAN MD
--- NOTE | 2023-12-28 15:55 | ED.RN ---
THIS NURSE ASSESSED PT AND ASKED IF SHE IS HAVING ANY SI/HI THOUGHTS. PT DENIES ANY PLAN OR THOUGHTS OF SI/HI. PT SAID SHE IS ONLY HERE BECAUSE HER S/O BROUGHT HER HERE TODAY. AT THE BEDSIDE IS FRIEND AND S/O. WHILE ASKING PT QUESTIONS FOR THE MENTAL HEALTH ASSESSMENT THE S/O AND FRIEND WOULD SPEAK FOR PT. I WOULD DIRECT THE QUESTIONS TO PT AND ALSO ASK FOR THE PT TO RESPOND. S/O STATED PT HAD A BOTTLE OF PILLS SHE THREATENED TO TAKE AND HE WAS ABLE TO INTERVENE AND GET THE AWAY FROM HER. FRIEND SAID SHE THEN RAN TO A NEEDLE OR SHARP OBJECT AFTER. THEY WERE ABLE TO BRING HER IN TODAY TO THE ED. PT HAS PREVIOUS SI ATTEMPTS WITH AN INPATIENT STAY AT ME. SITTER AT BEDSIDE. PT DENIES ANY NEED ST THIS TIME BEFORE THIS NURSE LEFT THE ROOM.
--- NOTE | 2023-12-28 16:06 | EX.ED.VIS.PS ---
HPI HPI - Psych History of Present Illness Chief Complaint: Suicidal Informant: patient and spouse/S.O. Narrative Narrative: Patient is a 43-year-old female with history of Chela-Danlos syndrome, hypertension, GERD, type 2 diabetes mellitus (on metformin patient states is well-controlled), PTSD, autism, ADHD and MDD presenting with generalized illness and concern for dehydration as well as worsening depression and suicidal threat. Patient is accompanied by her live-in fianc? as well as a friend of theirs. Apparently for the past few days patient has just been sick and not eating and drinking much. She is been laying on the floor a lot. She has been more withdrawn and generally weak. She has had a cough but is no longer productive. No fever reported. He reports of intermittent right ear pain and sore throat from all the coughing. Was seen in urgent care and prescribed Bromfed and had a negative chest x-ray. Reports some mild nausea secondary to the cough. No vomiting or urinary symptoms reported. Reports that maybe she has had some decreased urine output but states she does not really keep track of that kind of thing. Today she tried to go out and take the car and her fianc? thought that she should do especially if she did have her license or her glasses with her. She then became upset and walked outside. He states she was throwing things. When she returned to the house she states I do not want to be here anymore and the talk about killing herself. She went to the bathroom and grabbed a bottle of pills. Her fianc? was able to take it out of her hand. Shortly after that she then went to the living room and grabbed a pack of sewing needles of which are fianc? removed from her as well. Patient denies recalling any of these things. Patient currently denies any HI or SI. Came in for further evaluation. Did have a psychiatric evaluation and admission 1 to 2 years ago at [facility]. [facility] Medical History Cervical dystonia Pancreatitis Cervical radiculopathy Autism Wears contact lenses Wears glasses Anxiety Depression Alcohol use Yeast infection Thyroid disease Diabetes Arthritis Fatty liver Anemia Back pain Injury of back Injury of head and neck Migraine headache Loss of consciousness History of IBS Gastric reflux Non-smoker Sleep apnea Shortness of breath on exertion Chronic cough History of pain when walking History of echocardiogram History of stress test Cardiology follow-up encounter Deep dyspareunia Chronic pelvic pain in female PCOS (polycystic ovarian syndrome) POTS (postural orthostatic tachycardia syndrome) HTN (hypertension) Hypothyroidism Asthma Type 2 diabetes mellitus Home Medications ?Medication ?Instructions ?Recorded ?Last Taken ?Type enalapril maleate 2.5 mg tablet 2.5 mg PO QHS protect kidneys 06/07/13 06/27/21 History metformin 500 mg tablet,extended 1,000 mg PO BID diabetes 06/07/13 06/27/21 History release 24 hr pantoprazole 40 mg tablet,delayed 40 mg PO DAILY PRN REFLUX 02/05/16 06/27/21 History release lorazepam 1 mg tablet 1 mg PO BID PRN PRN Anxiety 03/06/19 06/27/21 History ubrogepant 100 mg tablet (Ubrelvy) 100 mg PO PRN PRN MIGRAINES 05/10/21 06/27/21 History fluvoxamine 50 mg tablet 50 mg PO DAILY #30 tabs 12/14/22 Unknown Rx fexofenadine-pseudoephedrine ER 1 tab PO DAILY 05/16/23 Unknown History 180 mg-240 mg tablet,ext.release 24 hr (24HR Allergy-Congestion Relief) guaifenesin 600 mg tablet, 600 mg PO BID 05/16/23 Unknown History extended release 12 hr (Mucus Relief ER) levalbuterol tartrate 45 2 puff inhalation Q4H PRN 05/16/23 Unknown History mcg/actuation aerosol inhaler shortness of breath or wheezing lidocaine 5 % topical patch 2 patch transdermal DAILY 05/16/23 Unknown History olopatadine 0.1 % eye drops 1 drp ophthalmic (eye) BID 05/16/23 Unknown History ondansetron 8 mg disintegrating 8 mg PO Q8H PRN nausea and 06/03/23 Unknown Rx tablet vomiting #20 tabs sucralfate 100 mg/mL oral 10 ml PO BID PRN 12/21/23 Unknown History suspension triamcinolone acetonide 55 mcg 2 spray intranasal DAILY PRN 12/21/23 Unknown History nasal spray aerosol prednisone 20 mg tablet 40 mg (2 x 20 mg) PO DAILY #10 tabs 12/28/23 Unknown Rx Allergy/AdvReac Type Severity Reaction Status Date / Time Corticosteroids Allergy Intermediate Other Verified 12/28/23 15:48 (Glucocorticoids) atorvastatin (From Lipitor) Allergy Rash Verified 12/28/23 15:48 ciprofloxacin (From Cipro) Allergy Anaphylaxis Verified 12/28/23 15:48 ciprofloxacin HCl (From Allergy Anaphylaxis Verified 12/28/23 15:48 Cipro) peanut Allergy Other Verified 12/28/23 15:48 strawberry Allergy Hives Verified 12/28/23 15:48 Sulfa (Sulfonamide Allergy Shortness Verified 12/28/23 15:48 Antibiotics) of breath tomato Allergy Food Verified 12/28/23 15:48 Allergy tramadol Allergy Hives Verified 12/28/23 15:48 wheat Allergy Food Verified 12/28/23 15:48 Allergy adhesive AdvReac Other Verified 12/28/23 15:48 albuterol AdvReac Other Verified 12/28/23 15:48 aspirin AdvReac Nausea/Vom/ Verified 12/28/23 15:48 Diarrhea diphenhydramine (From AdvReac Shortness Verified 12/28/23 15:48 Benadryl) of breath duloxetine (From Cymbalta) AdvReac Other Verified 12/28/23 15:48 morphine AdvReac Shortness Verified 12/28/23 15:48 of breath nickel AdvReac Rash Verified 12/28/23 15:48 nifedipine AdvReac Chest Verified 12/28/23 15:48 tightness Opioids - Morphine Analogues AdvReac Inflammation Verified 12/28/23 15:48 of vein sumatriptan (From Imitrex) AdvReac Vomiting Verified 12/28/23 15:48 sumatriptan succinate (From AdvReac Vomiting Verified 12/28/23 15:48 Imitrex) topiramate (From Topamax) AdvReac Other Verified 12/28/23 15:48 venlafaxine (From Effexor) AdvReac Other Verified 12/28/23 15:48 Family History Grandmother Heart disease Diabetes Asthma Grandmother Diabetes PCOS (polycystic ovarian syndrome) Migraines Cataracts, bilateral Surgical History H/O bilateral salpingectomy S/P laparoscopic assisted vaginal hysterectomy (LAVH) Hx of eye surgery History of cholecystectomy Bariatric surgery status History of nasal surgery Deviated septum turbinate surgery' l breast scar tissue removal Social History household members: significant other number of children: 0 current occupational status: employed current occupation: [employer] history of recent travel: No sexually active: Yes Smoking Status: Never smoker alcohol intake: current alcohol intake frequency: a few times a month substance use type: marijuana diet: low carbohydrate and vegetarian what type of physical activity do you participate in: walking seatbelt use: always do you feel safe at home: Yes additional social history: boyfriend - Anshu Gaitan EXAM Physical Exam Const Vital Signs: 12/28/23 14:23 12/28/23 15:22 12/28/23 18:50 Temperature 97.9 F Temperature Source Oral Pulse Rate 92 79 82 Respiratory Rate 18 16 18 Blood Pressure 133/107 H 114/71 Blood Pressure Mean 115 85 Pulse Ox 98 97 100 Oxygen Delivery Method Room Air Room Air Room Air Positive well nourished and well developed General Appearance ED: well developed and NAD HEENT Reports TM's clear and moist mucous membranes HEENT Narrative: Mild oropharyngeal injection present, normal tympanic membranes bilaterally. Normal nares. Normal-appearing tonsils. normocephalic and atraumatic Tympanic Membrane ED: Yes TM's clear Eyes PERRL and EOMs intact bilaterally Neck supple and no JVD Neck Narrative: Normal range of motion of the neck Resp normal respiratory effort and clear to auscultation bilaterally Cardio no murmurs Rate: regular rate Rhythm: regular rhythm Extremity normal to inspection General Extremety ED: Negative for edema General Extremity: Negative for edema Neuro oriented x3 Motor Exam: muscle tone normal throughout and general weakness Psych thought process normal, cooperative, denies hallucinations, denies homicidal ideation and denies suicidal ideation Appearance: grossly normal Attitude: withdrawn Activity / Motor Behavior: appropriate eye contact Speech: normal speech Mood & Affect: constricted affect Thought Content: normal thought content and No hallucination(s) Attention / Concentration: attention grossly intact and concentration grossly intact Memory / Cognition: memory grossly intact Insight: limited Judgement: fair Skin Rashes: no rashes MDM MDM MDM Narrative Medical decision making narrative: Patient's evaluated for concern of dehydration, generalized illness as well as threats of self-harm and SI today. Patient currently denies it. Will obtain medical workup as well as medical clearance from a psychiatric standpoint. Patient's bicarb is mildly low at 19 consistent with dehydration. Patient given a 500 cc bolus. Remainder of workup is negative however she has not provided any urine. Initially I did file a pink slip as voiced concerns about her not being in the right state of mind if she does go home. While medical clearance is being performed was called back and talk to the patient. Patient is now much less withdrawn and insightful. She is active much more appropriate. feels that she is back to baseline and feels comfortable taking her home. Patient continues to deny any HI or SI. Feels confident that she can promise that she would not harm herself if she goes home. feels comfortable taking her home patient be discharged. Patient is now able to tell me that she is complain of a lot of chest pain and sore throat as well as neck pain associate with coughing, recent illness. She is also complaining postnasal drip. Patient will be given a dose of Toradol as well as Zofran in the emergency room. Will place on a burst of prednisone as a suspect she likely has a component of bronchitis. She states she is tolerated steroids in the past from a yadi standpoint as well as other reaction standpoint and it just made her hungry and have worsening of her insomnia. She feels comfortable taking the steroids now. Is given close return precautions. Is given follow-up information for the counseling center. Discharged home in stable condition. Patient and agreeable this plan of care. Lab Data Attestation: I reviewed the patient's lab results. Labs: Laboratory Results - last 24 hr 12/28/23 17:00 WBC 11.0 RBC 5.02 Hgb 13.7 Hct 41.8 MCV 83.3 MCH 27.3 MCHC 32.8 RDW Std Deviation 45.9 H RDW Coeff of Yair 15.1 H Plt Count 373 MPV 9.1 Immature Gran % (Auto) 0.300 Neut % (Auto) 75.8 H Lymph % (Auto) 19.3 [place] % (Auto) 4.1 Eos % (Auto) 0.3 Baso % (Auto) 0.2 Absolute Neuts (auto) 8.3 H Absolute Lymphs (auto) 2.12 Nucleated RBC % 0 Sodium 141 Potassium 3.9 Chloride 109 H Carbon Dioxide 19.0 L Anion Gap 13 BUN 20 H Creatinine 0.66 Estim Creat Clear Calc 133.10 Est GFR (MDRD) Af Amer 127 Est GFR (MDRD) Non-Af 105 BUN/Creatinine Ratio 30.3 H Glucose 106 Calcium 9.2 Magnesium 1.7 Total Bilirubin 0.50 AST 16 ALT 18 Alkaline Phosphatase 66 Total Creatine Kinase 81 Total Protein 7.6 Albumin 3.9 Globulin 3.7 Albumin/Globulin Ratio 1.1 Serum , Qual NEGATIVE Salicylates 2.5 L Acetaminophen < 2.0 L Ethyl Alcohol < 3.0 Radiography Diagnostic Testing: Clinical Impression(s) from Imaging Studies Chest X-Ray 12/28/23 16:18 IMPRESSION: Stable chest Electronically Signed: Tanmay Watts MD at 17:01 EDT , Rhythm Strip Rhythm Strip: Sinus Rhythm Rate: 91 Ectopy: None EKG Initial EKG: Attestation: I personally reviewed and interpreted this EKG as follows: Interpretation: Sinus Rhythm Comments: Normal sinus rhythm at a rate of 91 bpm Normal axis Normal intervals Normal ST segments Compared to prior EKG on 10/24/2021 patient longer has a sinus arrhythmia Discharge Plan Triage Chief Complaint: Suicidal ED Provider: Roma Monroe Dx/Rx/DC Orders Clinical Impression: Depression, Mild dehydration, URI, acute Instructions: ED Dehydration (Adult), ED Depression, ED URI, Viral, No Abx (Adult) Prescriptions: New prednisone 20 mg tablet 40 mg PO DAILY Qty: 10 0RF No Action fluvoxamine 50 mg tablet 50 mg PO DAILY Qty: 30 12RF sucralfate 100 mg/mL suspension 10 ml PO BID PRN metformin 500 MG tablet 1,000 mg PO BID enalapril maleate 2.5 MG tablet 2.5 mg PO QHS pantoprazole 40 MG tablet 40 mg PO DAILY PRN (Reason: REFLUX) lorazepam 1 MG tablet 1 mg PO BID PRN PRN (Reason: Anxiety) Ubrelvy 100 mg Tablet 100 mg PO PRN PRN (Reason: MIGRAINES) ondansetron 8 mg tablet,disintegrating 8 mg PO Q8H PRN (Reason: nausea and vomiting) Qty: 20 0RF levalbuterol tartrate 45 mcg/actuation HFA aerosol inhaler 2 puff inhalation Q4H PRN (Reason: shortness of breath or wheezing) guaifenesin [Mucus Relief ER] 600 mg tablet extended release 12hr 600 mg PO BID olopatadine 0.1 % drops 1 drp ophthalmic (eye) BID lidocaine 5 % adhesive patch,medicated 2 patch transdermal DAILY fexofenadine-pseudoephedrine [24HR Allergy-Congestion Relief] 180-240 mg tablet extended release 24 hr 1 tab PO DAILY triamcinolone acetonide 55 mcg aerosol,spray 2 spray INTRANASAL DAILY PRN Primary Care Provider: Shirlene George Referrals: Counseling,Center [Group of Physicians] - As Needed Shirlene George MD [Primary Care Provider] - Activity Restrictions/Additional Instructions: Please try to push fluids. Use Zofran as needed for nausea. You been given a burst of prednisone to help with your cough and your viral symptoms. If you feel that the side effects are worse than your symptoms you may stop it at any time. As we discussed please keep an eye on your blood sugar while taking the steroids. If you feel that you are having worsening depression, further mood changes or thoughts of self-harm please return immediately to the emergency room or call 911. Please follow-up with your counselor/psychiatrist. Print Language: [place]an Disposition Disposition: Home, Self Care
--- NOTE | 2023-12-28 16:18 | RAD_ITS ---
STUDY: X-RAY CHEST REASON FOR EXAM: Female, 43 years old. cough TECHNIQUE: Single frontal view of the chest. COMPARISON: Chest x-ray September 22, 2023 FINDINGS: Right IJ MediPort terminates in the superior vena cava unchanged. The lungs are clear and expanded. There is no demonstrated pleural abnormality. Normal size heart. Normal mediastinum and bethanie. Normal visualized pulmonary arteries. Normal visualized aortic arch and descending thoracic aorta. Normal visualized thoracic spine. Normal visualized ribs, clavicles, and shoulders. There is no demonstrated abnormality of the visualized soft tissue structures of the upper abdomen. RAD/Chest 1 View (Portable) IMPRESSION: Stable chest Electronically Signed: Tanmay Watts MD at 17:01 EDT ,
[2023-12-28] MEDS: Lidocaine/Prilocaine HCl 5 GM Tube TOPICAL (16:28)
[2023-12-28 17:14] LABS: Absolute Lymphocyte Count 2.12 X10^3/uL (0.83-4.51); Absolute Neutrophil Count 8.3 X10^3/uL (2.0-7.7); Basophil# 0.02 X10^3/uL; Basophil% 0.2 % (0-1); Eosinophil# 0.03 X10^3/uL; Eosinophils% 0.3 % (0-5); Hematocrit 41.8 % (37-47); Hemoglobin 13.7 g/dL (12.0-15.0); Lymphocyte # 2.12 X10^3/ul (0.83-4.51); Lymphocyte % 19.3 % (19-41); Mean Corp Hgb Conc 32.8 g/dL (32-36); Mean Corpuscular Hgb 27.3 pg (27.0-32.0); Mean Corpuscular Volume 83.3 fL (81-99); Mean Platelet Vol. 9.1 fl (6.2-12.0); Monocyte# 0.45 X10^3/uL; Monocyte% 4.1 % (0-10); NRBC Flagged by Analyzer 0 % (0-5); Neutrophil # 8.31 X10^3/uL (2.7-7.7); Neutrophil % 75.8 % (47-70); Platelet Count 373 K/mm3 (150-450); RBC Distribution Width CV 15.1 % (11.6-14.6); RBC Distribution Width SD 45.9 fl (35.1-43.9); Red Blood Count 5.02 M/mm3 (4.2-5.4)
[2023-12-28 17:25] LABS: Internal QC Validated? YES +Cl - CLEAR BKGD; Pregnancy, Serum, hCG Quali. NEGATIVE Negative
[2023-12-28 17:27] LABS: Acetaminophen (Tylenol) Level < 2.0 ug/mL (10.0-30.0); Alcohol, Blood (Medical)-Serum < 3.0 mg/dL; Salicylate 2.5 mg/dL (2.8-20.0)
[2023-12-28 17:30] LABS: ALB/GLOB Ratio 1.1 RATIO (0.9-2.4); AST(SGOT) 16 U/L (15-37); Alanine Aminotransfer ALT/SGPT 18 U/L (13-56); Albumin, Serum 3.9 g/dL (3.2-5.0); Alkaline Phosphatase 66 U/L (45-117); Anion Gap 13 (5-15); BUN 20 mg/dL (7-18); BUN/Creat Ratio 30.3 RATIO (10-20); CPK Total, Creatine Kinase 81 U/L (26-192); Calcium,Total 9.2 mg/dL (8.5-10.1); Chloride 109 mmol/L (98-107); Creatinine, Serum 0.66 mg/dL (0.55-1.02); EST Glomerular Filtration Rate 105 mL/min (>60); Est Glom Filt Rate - Afr Amer 127 mL/min (>60); Globulin 3.7 g/dL (2.2-4.2); Glucose 106 mg/dL (74-106); Magnesium 1.7 mg/dL (1.6-2.6); Potassium 3.9 mmol/L (3.5-5.1); Protein, Total 7.6 g/dL (6.4-8.2); Sodium Level 141 mmol/L (136-145)
[2023-12-28] MEDS: 0.9% Normal Saline (500mL Bag) 500 ML 999 ML IV (17:48)
[2023-12-28 18:50] VITALS: BP 114/71; PULSE 82; RESP 18; O2SAT 100
[2023-12-28 21:27] VITALS: BP 117/74; PULSE 77; RESP 18; TEMP 36.6; O2SAT 97
[2023-12-28] MEDS: Ketorolac 15 MG/ML Vial IV (21:32)
[2023-12-28] MEDS: Ondansetron 4 MG/2 ML Vial IV (21:34)
== END 2023-12-28 21:43 | disposition home or self-care (01) ==
PROVIDERS: Emergency Provider Emergency Medicine; PCP Internal Medicine; Visit Provider Emergency Medicine
DX: J06.9 Acute upper respiratory infection, unspecified (principal); E11.9 Type 2 diabetes mellitus without complications; E86.0 Dehydration; I10 Essential (primary) hypertension; F84.0 Autistic disorder; F32.A Depression, unspecified; Z79.84 Long term (current) use of oral hypoglycemic drugs; Z79.899 Other long term (current) drug therapy
CPT/HCPCS: 36591; 71045; 80053; 80143; 80179; 82077; 82550; 83735; 84703; 85025; 87631; 93005; 96361; 96374; 96375; 99285; J7040; A4216; J2405